=== PATIENT | male | born 1955 | race Caucasian/White ===

== ENCOUNTER → 2020-09-10 09:33 | Outpatient (BNVA) | payer MEDICARE, MEDICAID, SELFPAY | PROVIDERS: PCP Internal Medicine; Visit Provider Internal Medicine | DX: I26.99 Other pulmonary embolism without acute cor pulmonale (principal); I82.409 Acute embolism and thrombosis of unspecified deep veins of unspecified lower extremity; Z51.81 Encounter for therapeutic drug level monitoring; Z79.01 Long term (current) use of anticoagulants | CPT/HCPCS: 85610; 99211 ==

== ENCOUNTER 2020-09-25 12:54 | Emergency (ER) | payer MEDICARE, MEDICAID, SELFPAY ==
[2020-09-25 13:26] VITALS: BP 143/91; PULSE 86; RESP 20; TEMP 37.2; O2SAT 96; BMI 27.8
--- NOTE | 2020-09-25 13:41 | XR_ITS ---
EXAMINATION: XR CHEST CLINICAL INFORMATION: Fever COMPARISON: CT chest 09/14/2018 TECHNIQUE: Frontal view of the chest was obtained. FINDINGS: Lung volumes are slightly diminished. Chronic opacity at the right lung base is similar to priors. No new focal consolidation or mass. No pleural effusion or pneumothorax. Scattered radiopaque foreign bodies are again seen projecting over the left greater than right chest bilaterally. XR/XR chest 1V IMPRESSION: No acute pulmonary disease.
--- NOTE | 2020-09-25 14:10 | ED_ITS ---
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 He has been taking Tylenol with brief improvement in fevers. He also rep orts mild dry cough. No SOB, chest pain, N/V/D, abdominal pain. Admits to dysuria but denies hematuria and frequency. He lives with his son and friend who are both healthy. No known exposure to COVID-19. <TATIANNA Batista - Last Filed: 09/25/20 16:56> MD elicited complaint: fever <TATIANNA Batista - Last Filed: 09/25/20 16:56> Onset (ago): day(s) (2) <TATIANNA Batista - Last Filed: 09/25/20 16:56> Measured temperature: 102 F <TATIANNA Batista - Last Filed: 09/25/20 16:56> Exacerbating factors: nothing <TATIANNA Batista Last Filed: 09/25/20 16:56> Relieving factors: acetaminophen <TATIANNA Batista Last Filed: 09/25/20 16:56> Associated symptoms: chills and cough <TATIANNA Batista Last Filed: 09/25/20 16:56> Treatments prior to arrival fever: none <TATIANNA Batista Last Filed: 09/25/20 16:56> Related Data Home Medications: Home Medications Medication Instructions Recorded Confirmed albuterol sulfate [ProAir HFA] 2 puff INHALATION Q4-6H PRN 09/25/20 09/25/20 atorvastatin 40 mg PO BEDTIME 09/25/20 09/25/20 lisinopril 20 mg PO DAILY 09/25/20 09/25/20 oxycodone 5 mg PO Q8H PRN 09/25/20 09/25/20 sildenafil [Viagra] 100 mg PO DAILY PRN 09/25/20 09/25/20 warfarin 7.5 mg PO MOTUTHFRSA@1600 09/25/20 09/25/20 warfarin 10 mg PO SUWE@1600 09/25/20 09/25/20 Previous Rx's Medication Instructions Recorded warfarin 5 mg tablet 5 mg PO DAILY #90 tab 09/10/20 nitrofurantoin monohyd/m-cryst 100 mg PO BID #10 cap 09/25/20 [Macrobid] <TATIANNA Batista - Last Filed: 09/25/20 16:56> Allergies/Adverse Reactions: Allergies Allergy/AdvReac Type Severity Reaction Status Date / Time No Known Drug Allergies Allergy Mild NONE Verified 09/25/20 13:33 [NO KNOWN DRUG ALLERGIES] <TATIANNA Batista - Last Filed: 09/25/20 16:56> Review of Systems Review of Systems: Constitutional: + Fever, + Chills ENT/Mouth: No sore throat, No Rhinorrhea, No Swallowing Difficulty Eyes: No Eye Pain, No Swelling, No Redness Cardiovascular: No Chest Pain, No SOB, No Orthopnea, No Edema Respiratory: + Cough, No Sputum, No Wheezing, No dyspnea Gastrointestinal: No Nausea, No Vomiting, No Diarrhea, No abdominal Pain Genitourinary: + Dysuria, No Urinary Frequency, No Hematuria Musculoskeletal: No joint pain, No Myalgias Skin: No Skin Lesions, No rash Neuro: No Weakness, No Numbness, No Dizziness, No Headache Psych: No Anxiety/Panic, No Depression Heme/Lymph: No Bruising, No Lymphadenopathy Endocrine: No Polyuria, No Polydipsia <TATIANNA Batista Last Filed: 09/25/20 16:56> [facility] Past Medical History Attestation statement: The following information was validated with the patient. <TATIANNA Batista - Last Filed: 09/25/20 16:56> Medical History: Medical History DVT (deep venous thrombosis) Pulmonary embolism <TATIANNA Batista - Last Filed: 09/25/20 16:56> Social History Social History: Social History Alcohol intake: never Smoking Status: Never smoker Use of substances other than those prescribed or required for medical reasons: No Advance Directives: No Advance Directives Information Provided: Yes <TATIANNA Batista - Last Filed: 09/25/20 16:56> Physical Exam Vital Signs: Vital Signs: Last Vital Signs Temp 99.1 F 09/25/20 15:21 Pulse 70 09/25/20 15:21 Resp 18 09/25/20 15:21 BP 154/94 H 09/25/20 15:21 Pulse Ox 96 09/25/20 15:21 Body Mass Index 27.8 Appearance: Alert. Oriented X3. No acute distress. Eyes: Pupils equal, round and reactive to light. ENT: Pharynx normal. Neck: Normal inspection. Neck supple. CVS: Normal heart rate and rhythm. Pulses normal. Respiratory: No respiratory distress. Breath sounds normal. Abdomen: Soft and nontender. +BS x4, disteneded Skin: Skin warm and dry. Normal skin color. Normal skin turgor. No rashes. Warm to the touch. Extremities: No lower extremity edema. Chronic venous stasis changes to upper ankles. Negative Luaren's sign. Neuro: Oriented X 3. No motor deficit. No sensory deficit. <TATIANNA Batista - Last Filed: 09/25/20 16:56> Vital Signs: Last Vital Signs Temp 99.1 F 09/25/20 15:21 Pulse 70 09/25/20 15:21 Resp 18 09/25/20 15:21 BP 154/94 H 09/25/20 15:21 Pulse Ox 96 09/25/20 15:21 Body Mass Index 27.8 <Vinny Valladares MD - Last Filed: 09/28/20 02:49> Course Course Course Narrative: 64 y/o male presenting with fevers and cough and dysuria. Will panculture and get basic labs. Afebrile and hemodynamically stable on arrival. No resp distress. <TATIANNA Batista - Last Filed: 09/25/20 16:56> I have reviewed the chart <Vinny Valladares MD - Last Filed: 09/28/20 02:49> Reevaluation(s) Reevaluation #1: Lab workup shows a mild transaminitis, improved from prior. No abd pain or tenderness. UA with trace dysuria. Given he has dysuria, will treat for acute cystitis. He remains hemodynamically stable and in no distress. COVID swab sent. Patient is stable for d/c. <TATIANNA Batista - Last Filed: 09/25/20 16:56> MDM - Fever Differential Diagnosis Differential diagnosis: Likely fever of unknown origin, gastroenteritis, community acquired pneumonia, pyelonephritis, viral infection, sepsis and influenza <TATIANNA Batista - Last Filed: 09/25/20 16:56> Lab Data Result diagrams: : 09/25/20 15:10 09/25/20 15:10 <TATIANNA Batista - Last Filed: 09/25/20 16:56> Labs: Lab Results 09/25/20 09/25/20 09/25/20 Range/Units 15:10 15:10 15:10 WBC 4.9 (4.8-10.8) X10*3/uL RBC 4.40 L (4.60-5.80) X10*6/uL Hgb 13.2 L (14.0-18.0) g/dl Hct 39.6 L (42-52) % MCV 90.0 (80-98) fL MCH 30.0 (27.0-33.0) pg MCHC 33.3 (31.0-36.0) g/dl RDW 13.8 (11.0-16.0) % Plt Count 166 (160-400) X10*3/uL MPV 9.4 (9.4-12.4) fL Immature Gran % (Auto) 0.2 (0.0-0.4) % Neut % (Auto) 56.0 (45-73) % Lymph % (Auto) 26.6 (20-40) % [place] % (Auto) 16.4 H (2-11) % Eos % (Auto) 0.4 (0-4) % Baso % (Auto) 0.4 (0-2) % Lymph # (Auto) 1.3 (1.2-4.9) X10*3/uL [place] # (Auto) 0.8 (0.1-1.2) X10*3/uL Eos # (Auto) 0.0 (0.0-0.4) X10*3/uL Baso # (Auto) 0.0 (0.0-0.2) X10*3/uL Abs Immat Gran (auto) 0.01 (0.00-0.03) X10*3/uL Absolute Neuts (auto) 2.7 (2.0-8.3) X10*3/uL Absolute Nucleated RBC 0.000 (0.0-0.012) X10*3/uL Nucleated RBC % (auto) 0.0 (0.0-0.2) /100WBC Sodium 139 (135-145) mmol/L Potassium 4.5 (3.3-5.1) mmol/l Chloride 105 (96-108) mmol/L Carbon Dioxide 28 (22-29) mmol/L Anion Gap 11 L (12-20) BUN 14 (9-16) mg/dL Creatinine 1.17 (0.5-1.4) mg/dL Estim Creat Clear Calc 69.0 Estimated GFR > 60 Random Glucose 88 (60-115) mg/dL Lactic Acid 1.0 (0.5-2.0) mmol/L Calcium 8.4 (8.4-10.2) mg/dL Total Bilirubin 0.4 (0.0-1.0) mg/dL Direct Bilirubin 0.2 (0.0-0.5) mg/dL AST 39 H (5-37) U/L ALT 45 H (0-40) U/L Alkaline Phosphatase 60 (39-117) U/L Total Protein 7.2 (6.5-8.0) g/dL Albumin 4.4 (3.5-5.0) g/dL Urine Color Urine Appearance Urine pH (5.0-8.0) Ur Specific [place] (1.005-1.025) Urine Protein (NEG-TRACE) MG/DL Urine Glucose (UA) (NEG) MG/DL Urine Ketones (NEG) MG/DL Urine Blood (NEG) Urine Nitrite (NEG) Ur Leukocyte Esterase (NEG) Urine RBC (0) /HPF Urine WBC (0-4) /HPF Ur Squamous Epith Cells /LPF Urine Bacteria /LPF COVID-19 PCR (NOT DETECTED) 09/25/20 09/25/20 Range/Units 15:41 16:17 WBC (4.8-10.8) X10*3/uL RBC (4.60-5.80) X10*6/uL Hgb (14.0-18.0) g/dl Hct (42-52) % MCV (80-98) fL MCH (27.0-33.0) pg MCHC (31.0-36.0) g/dl RDW (11.0-16.0) % Plt Count (160-400) X10*3/uL MPV (9.4-12.4) fL Immature Gran % (Auto) (0.0-0.4) % Neut % (Auto) (45-73) % Lymph % (Auto) (20-40) % [place] % (Auto) (2-11) % Eos % (Auto) (0-4) % Baso % (Auto) (0-2) % Lymph # (Auto) (1.2-4.9) X10*3/uL [place] # (Auto) (0.1-1.2) X10*3/uL Eos # (Auto) (0.0-0.4) X10*3/uL Baso # (Auto) (0.0-0.2) X10*3/uL Abs Immat Gran (auto) (0.00-0.03) X10*3/uL Absolute Neuts (auto) (2.0-8.3) X10*3/uL Absolute Nucleated RBC (0.0-0.012) X10*3/uL Nucleated RBC % (auto) (0.0-0.2) /100WBC Sodium (135-145) mmol/L Potassium (3.3-5.1) mmol/l Chloride (96-108) mmol/L Carbon Dioxide (22-29) mmol/L Anion Gap (12-20) BUN (9-16) mg/dL Creatinine (0.5-1.4) mg/dL Estim Creat Clear Calc Estimated GFR Random Glucose (60-115) mg/dL Lactic Acid (0.5-2.0) mmol/L Calcium (8.4-10.2) mg/dL Total Bilirubin (0.0-1.0) mg/dL Direct Bilirubin (0.0-0.5) mg/dL AST (5-37) U/L ALT (0-40) U/L Alkaline Phosphatase (39-117) U/L Total Protein (6.5-8.0) g/dL Albumin (3.5-5.0) g/dL Urine Color YELLOW Urine Appearance CLEAR Urine pH 5.5 (5.0-8.0) Ur Specific [place] 1.015 (1.005-1.025) Urine Protein NEG (NEG-TRACE) MG/DL Urine Glucose (UA) NEG (NEG) MG/DL Urine Ketones NEG (NEG) MG/DL Urine Blood TRACE (NEG) Urine Nitrite NEG (NEG) Ur Leukocyte Esterase NEG (NEG) Urine RBC 0-2 (0) /HPF Urine WBC 0 (0-4) /HPF Ur Squamous Epith Cells TRACE /LPF Urine Bacteria NONE /LPF COVID-19 PCR DETECTED A (NOT DETECTED) <TATIANNA Batista - Last Filed: 09/25/20 16:56> Lab Results 09/25/20 09/25/20 09/25/20 Range/Units 15:10 15:10 15:10 WBC 4.9 (4.8-10.8) X10*3/uL RBC 4.40 L (4.60-5.80) X10*6/uL Hgb 13.2 L (14.0-18.0) g/dl Hct 39.6 L (42-52) % MCV 90.0 (80-98) fL MCH 30.0 (27.0-33.0) pg MCHC 33.3 (31.0-36.0) g/dl RDW 13.8 (11.0-16.0) % Plt Count 166 (160-400) X10*3/uL MPV 9.4 (9.4-12.4) fL Immature Gran % (Auto) 0.2 (0.0-0.4) % Neut % (Auto) 56.0 (45-73) % Lymph % (Auto) 26.6 (20-40) % [place] % (Auto) 16.4 H (2-11) % Eos % (Auto) 0.4 (0-4) % Baso % (Auto) 0.4 (0-2) % Lymph # (Auto) 1.3 (1.2-4.9) X10*3/uL [place] # (Auto) 0.8 (0.1-1.2) X10*3/uL Eos # (Auto) 0.0 (0.0-0.4) X10*3/uL Baso # (Auto) 0.0 (0.0-0.2) X10*3/uL Abs Immat Gran (auto) 0.01 (0.00-0.03) X10*3/uL Absolute Neuts (auto) 2.7 (2.0-8.3) X10*3/uL Absolute Nucleated RBC 0.000 (0.0-0.012) X10*3/uL Nucleated RBC % (auto) 0.0 (0.0-0.2) /100WBC Sodium 139 (135-145) mmol/L Potassium 4.5 (3.3-5.1) mmol/l Chloride 105 (96-108) mmol/L Carbon Dioxide 28 (22-29) mmol/L Anion Gap 11 L (12-20) BUN 14 (9-16) mg/dL Creatinine 1.17 (0.5-1.4) mg/dL Estim Creat Clear Calc 69.0 Estimated GFR > 60 Random Glucose 88 (60-115) mg/dL Lactic Acid 1.0 (0.5-2.0) mmol/L Calcium 8.4 (8.4-10.2) mg/dL Total Bilirubin 0.4 (0.0-1.0) mg/dL Direct Bilirubin 0.2 (0.0-0.5) mg/dL AST 39 H (5-37) U/L ALT 45 H (0-40) U/L Alkaline Phosphatase 60 (39-117) U/L Total Protein 7.2 (6.5-8.0) g/dL Albumin 4.4 (3.5-5.0) g/dL Urine Color Urine Appearance Urine pH (5.0-8.0) Ur Specific [place] (1.005-1.025) Urine Protein (NEG-TRACE) MG/DL Urine Glucose (UA) (NEG) MG/DL Urine Ketones (NEG) MG/DL Urine Blood (NEG) Urine Nitrite (NEG) Ur Leukocyte Esterase (NEG) Urine RBC (0) /HPF Urine WBC (0-4) /HPF Ur Squamous Epith Cells /LPF Urine Bacteria /LPF COVID-19 PCR (NOT DETECTED) 09/25/20 09/25/20 Range/Units 15:41 16:17 WBC (4.8-10.8) X10*3/uL RBC (4.60-5.80) X10*6/uL Hgb (14.0-18.0) g/dl Hct (42-52) % MCV (80-98) fL MCH (27.0-33.0) pg MCHC (31.0-36.0) g/dl RDW (11.0-16.0) % Plt Count (160-400) X10*3/uL MPV (9.4-12.4) fL Immature Gran % (Auto) (0.0-0.4) % Neut % (Auto) (45-73) % Lymph % (Auto) (20-40) % [place] % (Auto) (2-11) % Eos % (Auto) (0-4) % Baso % (Auto) (0-2) % Lymph # (Auto) (1.2-4.9) X10*3/uL [place] # (Auto) (0.1-1.2) X10*3/uL Eos # (Auto) (0.0-0.4) X10*3/uL Baso # (Auto) (0.0-0.2) X10*3/uL Abs Immat Gran (auto) (0.00-0.03) X10*3/uL Absolute Neuts (auto) (2.0-8.3) X10*3/uL Absolute Nucleated RBC (0.0-0.012) X10*3/uL Nucleated RBC % (auto) (0.0-0.2) /100WBC Sodium (135-145) mmol/L Potassium (3.3-5.1) mmol/l Chloride (96-108) mmol/L Carbon Dioxide (22-29) mmol/L Anion Gap (12-20) BUN (9-16) mg/dL Creatinine (0.5-1.4) mg/dL Estim Creat Clear Calc Estimated GFR Random Glucose (60-115) mg/dL Lactic Acid (0.5-2.0) mmol/L Calcium (8.4-10.2) mg/dL Total Bilirubin (0.0-1.0) mg/dL Direct Bilirubin (0.0-0.5) mg/dL AST (5-37) U/L ALT (0-40) U/L Alkaline Phosphatase (39-117) U/L Total Protein (6.5-8.0) g/dL Albumin (3.5-5.0) g/dL Urine Color YELLOW Urine Appearance CLEAR Urine pH 5.5 (5.0-8.0) Ur Specific [place] 1.015 (1.005-1.025) Urine Protein NEG (NEG-TRACE) MG/DL Urine Glucose (UA) NEG (NEG) MG/DL Urine Ketones NEG (NEG) MG/DL Urine Blood TRACE (NEG) Urine Nitrite NEG (NEG) Ur Leukocyte Esterase NEG (NEG) Urine RBC 0-2 (0) /HPF Urine WBC 0 (0-4) /HPF Ur Squamous Epith Cells TRACE /LPF Urine Bacteria NONE /LPF COVID-19 PCR DETECTED A (NOT DETECTED) <Vinny Valladares MD - Last Filed: 09/28/20 02:49> Critical Care Time Critical Care Time Critical Care Time: No <TATIANNA Batista - Last Filed: 09/25/20 16:56> Discharge Plan Discharge Clinical Impression: Cystitis <TATIANNA aBtista - Last Filed: 09/25/20 16:56> Patient Disposition: Home, Self-Care <TATIANNA Batista - Last Filed: 09/25/20 16:56> Instructions: Urinary Tract Infection in Men (ED) <TATIANNA Batista - Last Filed: 09/25/20 16:56> Additional Instructions: You were tested for COVID-19 today. We will call you with the results in 2-4 days. Your lab workup showed a mild elevation in your liver tests - this was improved from your prior tests and should be followed up by your doctor. Your urine test had a small amount of blood in it, which can be a sign of infection. We are going to start you on antibiotics to treat this. If you have persistent fevers that do not improve with Tylenol or if you develop chest pain, difficulty breathing, or abdominal pain call your doctor or come back to the ER for further evaluation. Follow up with your doctor this week. <TATIANNA Batista - Last Filed: 09/25/20 16:56> Prescriptions: New nitrofurantoin monohyd/m-cryst [Macrobid] 100 mg capsule 100 mg PO BID Qty: 10 RF: 0 No Action atorvastatin 40 mg Tablet 40 mg PO BEDTIME RF: 0 warfarin 7.5 mg Tablet 7.5 mg PO MOTUTHFRSA@1600 RF: 0 lisinopril 20 mg Tablet 20 mg PO DAILY RF: 0 sildenafil [Viagra] 100 mg Tablet 100 mg PO DAILY PRN (Reason: Sexual Activity) RF: 0 warfarin 5 mg Tablet 10 mg PO SUWE@1600 RF: 0 albuterol sulfate [ProAir HFA] 90 mcg/actuation Hfa Aerosol Inhaler 2 puff INHALATION Q4-6H PRN (Reason: Shortness Of Breath) RF: 0 oxycodone 5 mg Tablet 5 mg PO Q8H PRN (Reason: Pain) RF: 0 warfarin 5 mg tablet 5 mg PO DAILY Qty: 90 RF: 0 <TATIANNA Batista - Last Filed: 09/25/20 16:56> Interventions: ED Discharge Assessment Last Done: 09/25/20 17:18 <TATIANNA Batista - Last Filed: 09/25/20 16:56> Discharge Date/Time: 09/25/20 17:19 <TATIANNA Batista - Last Filed: 09/25/20 16:56> Print Language: [place] <TATIANNA Batista - Last Filed: 09/25/20 16:56>
[2020-09-25 14:14] VITALS: TEMP 38.8
[2020-09-25 15:16] LABS: Basophils Percent Auto 0.4 % (0-2); Eosinophils Percent Auto 0.4 % (0-4); Hematocrit 39.6 % (42-52); Hemoglobin 13.2 g/dl (14.0-18.0); Imm Gran Abs Auto 0.01 X10*3/uL (0.00-0.03); Imm Gran Pct Auto 0.2 % (0.0-0.4); Lymphocytes Absolute Auto 1.3 X10*3/uL (1.2-4.9); Lymphocytes Percent Auto 26.6 % (20-40); MANUAL DIFF FLAG NO; Mean Corpuscular HGB Conc 33.3 g/dl (31.0-36.0); Mean Platelet Volume 9.4 fL (9.4-12.4); Monocytes Absolute Auto 0.8 X10*3/uL (0.1-1.2); Monocytes Percent Auto 16.4 % (2-11); Neutrophils Absolute Auto 2.7 X10*3/uL (2.0-8.3); Platelet Count 166 X10*3/uL (160-400); Red Cell Distribution Width 13.8 % (11.0-16.0); White Blood Count 4.9 X10*3/uL (4.8-10.8)
[2020-09-25 15:21] VITALS: BP 154/94; PULSE 70; RESP 18; TEMP 37.3; O2SAT 96
[2020-09-25 15:49] LABS: Alanine Aminotransferase 45 U/L (0-40); Albumin Level 4.4 g/dL (3.5-5.0); Alkaline Phosphatase 60 U/L (39-117); Anion Gap 11 (12-20); Aspartate Amino Transferase 39 U/L (5-37); Bilirubin Direct 0.2 mg/dL (0.0-0.5); Bilirubin Total 0.4 mg/dL (0.0-1.0); Blood Urea Nitrogen 14 mg/dL (9-16); Calcium 8.4 mg/dL (8.4-10.2); Carbon Dioxide 28 mmol/L (22-29); Chloride 105 mmol/L (96-108); Estimated Glomerular Filt Rate > 60; Glucose Random 88 mg/dL (60-115); Potassium 4.5 mmol/l (3.3-5.1); Sodium 139 mmol/L (135-145); Total Protein 7.2 g/dL (6.5-8.0)
[2020-09-25 16:31] LABS: Glucose Urine UA NEG (NEG); Leukocyte Esterase Urine NEG (NEG); Nitrite Urine NEG (NEG); PH 5.5 (5.0-8.0); Specific Gravity - Urine 1.015 (1.005-1.025); Urine Blood TRACE (NEG); Urine Ketones NEG (NEG); Urine Protein NEG (NEG-TRACE)
[2020-09-25 16:32] LABS: Appearance Urine CLEAR; Color Urine YELLOW
[2020-09-25 16:41] LABS: RBC Urine 0-2 /HPF (0); Squamous Epithelial Cell Urine TRACE /LPF; WBC Urine 0 /HPF (0-4)
== END 2020-09-25 17:19 | disposition home or self-care (01) ==
PROVIDERS: Physician Assistant; Emergency Provider Emergency Medicine; PCP Internal Medicine
DX: N30.90 Cystitis, unspecified without hematuria (principal); R50.9 Fever, unspecified; Z20.828 Contact with and (suspected) exposure to other viral communicable diseases
CPT/HCPCS: 36415; 71045; 80048; 80076; 81001; 83605; 85025; 87040; 99283; 99284; U0003

== ENCOUNTER 2020-10-03 13:13 | Emergency (ER) | payer MEDICARE, MEDICAID, SELFPAY ==
[2020-10-03 13:59] VITALS: BP 124/87; PULSE 104; RESP 18; TEMP 36.6; O2SAT 95; BMI 26.8
--- NOTE | 2020-10-03 15:01 | ED_ITS ---
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 and tool coordinator Mode of arrival: ambulatory Limitations: no limitations History of Present Illness MD complaint: shortness of breath Onset (ago): day(s) (2) Severity: moderate Context: recent URI (dx with COVID on 09/25 went to PCP and they told him his O2 was 91% on RA sent to the ED) Associated symptoms: dry cough Related Data Current Asthma Therapy: inhaled bronchodilator Home Medications Medication Instructions Recorded Confirmed albuterol sulfate [ProAir HFA] 2 puff INHALATION Q4-6H PRN 09/25/20 09/25/20 atorvastatin 40 mg PO BEDTIME 09/25/20 09/25/20 lisinopril 20 mg PO DAILY 09/25/20 09/25/20 oxycodone 5 mg PO Q8H PRN 09/25/20 09/25/20 sildenafil [Viagra] 100 mg PO DAILY PRN 09/25/20 09/25/20 warfarin 7.5 mg PO MOTUTHFRSA@1600 09/25/20 09/25/20 warfarin 10 mg PO SUWE@1600 09/25/20 09/25/20 Previous Rx's Medication Instructions Recorded warfarin 5 mg tablet 5 mg PO DAILY #90 tab 09/10/20 nitrofurantoin monohyd/m-cryst 100 mg PO BID #10 cap 09/25/20 [Macrobid] azithromycin See Rx Instructions .ROUTE 10/03/20 .COMPLEX #6 tab dexamethasone 6 mg PO DAILY 10 Days #10 tab 10/03/20 Allergies Allergy/AdvReac Type Severity Reaction Status Date / Time No Known Drug Allergies Allergy Mild NONE Verified 09/25/20 13:33 [NO KNOWN DRUG ALLERGIES] Review of Systems Review of Systems: Constitutional : No Fever, No Chills ENT/Mouth : No sore throat, No Rhinorrhea, No Swallowing Difficulty Eyes: No Eye Pain, No Swelling, No Redness Cardiovascular : No Chest Pain, positive SOB, No Orthopnea, no Edema Respiratory : pos Cough, No Sputum, No Wheezing, positive dyspnea Gastrointestinal : No Nausea, No Vomiting, No Diarrhea, No abdominal Pain, No Hematochezia, No Melena Genitourinary : No Dysuria, No Urinary Frequency, No Hematuria Musculoskeletal : No joint pain, No Myalgias Skin : No Skin Lesions, No rash Neuro : No Weakness, No Numbness, No Dizziness, No Headache Psych : No Anxiety/Panic, No Depression Heme/Lymph: No Bruising, No Lymphadenopathy Endocrine : No Polyuria, No Polydipsia All other systems reviewed and are negative [facility] Past Medical History Attestation statement: The following information was validated with the patient. Medical History (Updated 10/03/20 @ 16:12 by Ivette Schneider DO) Asthma COVID-19 DVT (deep venous thrombosis) Pulmonary embolism Social History Social History Alcohol intake: never Smoking Status: Never smoker Use of substances other than those prescribed or required for medical reasons: No Advance Directives: No Advance Directives Information Provided: No Physical Exam Vital Signs: Vital Signs: Last Vital Signs Temp 98.1 F 10/03/20 15:38 Pulse 86 10/03/20 15:50 Resp 15 10/03/20 15:50 BP 128/91 H 10/03/20 15:50 Pulse Ox 96 10/03/20 15:50 Body Mass Index 26.8 Appearance: Alert. Oriented X3. No acute distress. Eyes: Pupils equal, round and reactive to light. ENT: Pharynx normal. Neck: Normal inspection. Neck supple. CVS: Normal heart rate and rhythm. Pulses normal. Respiratory: No respiratory distress. Breath sounds rales bases Abdomen: Soft and nontender. Skin: Skin warm and dry. Normal skin color. Normal skin turgor. Extremities: No lower extremity edema. No calf ttp Neuro: Oriented X 3. No motor deficit. No sensory deficit. Course Course Course Narrative: ambulation trial in the ED 96% anticipate DC signed out to Dr. Leach pending repeat troponin, anticipate DC home if negative MDM - Asthma MDM Narrative Medical decision making narrative: 64 yo male with hx of asthma and dx with COVID on 09/25 here with dyspnea and increased wob - sats 94% on RA at this time, will obtain labs, EKG, CXR, ambulation in room trial for hypoxia, dispo per results and findings. Lab Data Result diagrams: 10/03/20 15:34 10/03/20 15:34 Labs: Lab Results 10/03/20 10/03/20 10/03/20 Range/Units 15:34 15:34 15:34 WBC 5.8 (4.8-10.8) X10*3/uL RBC 5.05 (4.60-5.80) X10*6/uL Hgb 15.2 (14.0-18.0) g/dl Hct 45.7 (42-52) % MCV 90.5 (80-98) fL MCH 30.1 (27.0-33.0) pg MCHC 33.3 (31.0-36.0) g/dl RDW 13.4 (11.0-16.0) % Plt Count 250 D (160-400) X10*3/uL MPV 10.0 (9.4-12.4) fL Immature Gran % (Auto) 0.3 (0.0-0.4) % Neut % (Auto) 63.1 (45-73) % Lymph % (Auto) 26.5 (20-40) % Peach % (Auto) 8.3 (2-11) % Eos % (Auto) 1.6 (0-4) % Baso % (Auto) 0.2 (0-2) % Lymph # (Auto) 1.5 (1.2-4.9) X10*3/uL Peach # (Auto) 0.5 (0.1-1.2) X10*3/uL Eos # (Auto) 0.1 (0.0-0.4) X10*3/uL Baso # (Auto) 0.0 (0.0-0.2) X10*3/uL Abs Immat Gran (auto) 0.02 (0.00-0.03) X10*3/uL Absolute Neuts (auto) 3.7 (2.0-8.3) X10*3/uL Absolute Nucleated RBC 0.000 (0.0-0.012) X10*3/uL Nucleated RBC % (auto) 0.0 (0.0-0.2) /100WBC PT (10.8-13.0) SEC INR (0.9-1.1) APTT (24.1-38.0) SEC Sodium 137 (135-145) mmol/L Potassium 3.7 (3.3-5.1) mmol/l Chloride 100 (96-108) mmol/L Carbon Dioxide 28 (22-29) mmol/L Anion Gap 13 (12-20) BUN 17 H (9-16) mg/dL Creatinine 0.97 (0.5-1.4) mg/dL Estim Creat Clear Calc 83.3 Estimated GFR > 60 Random Glucose 103 (60-115) mg/dL Lactic Acid 1.9 (0.5-2.0) mmol/L Calcium 8.3 L (8.4-10.2) mg/dL Magnesium (1.6-2.6) mg/dL Total Bilirubin (0.0-1.0) mg/dL Direct Bilirubin (0.0-0.5) mg/dL AST (5-37) U/L ALT (0-40) U/L Alkaline Phosphatase (39-117) U/L Lactate Dehydrogenase 409 H (118-273) U/L Troponin I High Sens (<3.5-35.0) ng/L B-Natriuretic Peptide (<100) pg/mL Total Protein (6.5-8.0) g/dL Albumin (3.5-5.0) g/dL Lipase 38 (8-78) U/L Procalcitonin ng/mL 10/03/20 10/03/20 10/03/20 Range/Units 15:34 15:34 15:34 WBC (4.8-10.8) X10*3/uL RBC (4.60-5.80) X10*6/uL Hgb (14.0-18.0) g/dl Hct (42-52) % MCV (80-98) fL MCH (27.0-33.0) pg MCHC (31.0-36.0) g/dl RDW (11.0-16.0) % Plt Count (160-400) X10*3/uL MPV (9.4-12.4) fL Immature Gran % (Auto) (0.0-0.4) % Neut % (Auto) (45-73) % Lymph % (Auto) (20-40) % Peach % (Auto) (2-11) % Eos % (Auto) (0-4) % Baso % (Auto) (0-2) % Lymph # (Auto) (1.2-4.9) X10*3/uL Peach # (Auto) (0.1-1.2) X10*3/uL Eos # (Auto) (0.0-0.4) X10*3/uL Baso # (Auto) (0.0-0.2) X10*3/uL Abs Immat Gran (auto) (0.00-0.03) X10*3/uL Absolute Neuts (auto) (2.0-8.3) X10*3/uL Absolute Nucleated RBC (0.0-0.012) X10*3/uL Nucleated RBC % (auto) (0.0-0.2) /100WBC PT (10.8-13.0) SEC INR (0.9-1.1) APTT (24.1-38.0) SEC Sodium (135-145) mmol/L Potassium (3.3-5.1) mmol/l Chloride (96-108) mmol/L Carbon Dioxide (22-29) mmol/L Anion Gap (12-20) BUN (9-16) mg/dL Creatinine (0.5-1.4) mg/dL Estim Creat Clear Calc Estimated GFR Random Glucose (60-115) mg/dL Lactic Acid (0.5-2.0) mmol/L Calcium (8.4-10.2) mg/dL Magnesium 2.3 (1.6-2.6) mg/dL Total Bilirubin 0.7 (0.0-1.0) mg/dL Direct Bilirubin 0.3 (0.0-0.5) mg/dL AST 59 H (5-37) U/L ALT 65 H (0-40) U/L Alkaline Phosphatase 68 (39-117) U/L Lactate Dehydrogenase (118-273) U/L Troponin I High Sens 6.6 (<3.5-35.0) ng/L B-Natriuretic Peptide < 10 (<100) pg/mL Total Protein 7.6 (6.5-8.0) g/dL Albumin 4.3 (3.5-5.0) g/dL Lipase (8-78) U/L Procalcitonin 0.03 ng/mL 10/03/20 Range/Units 15:34 WBC (4.8-10.8) X10*3/uL RBC (4.60-5.80) X10*6/uL Hgb (14.0-18.0) g/dl Hct (42-52) % MCV (80-98) fL MCH (27.0-33.0) pg MCHC (31.0-36.0) g/dl RDW (11.0-16.0) % Plt Count (160-400) X10*3/uL MPV (9.4-12.4) fL Immature Gran % (Auto) (0.0-0.4) % Neut % (Auto) (45-73) % Lymph % (Auto) (20-40) % Peach % (Auto) (2-11) % Eos % (Auto) (0-4) % Baso % (Auto) (0-2) % Lymph # (Auto) (1.2-4.9) X10*3/uL Peach # (Auto) (0.1-1.2) X10*3/uL Eos # (Auto) (0.0-0.4) X10*3/uL Baso # (Auto) (0.0-0.2) X10*3/uL Abs Immat Gran (auto) (0.00-0.03) X10*3/uL Absolute Neuts (auto) (2.0-8.3) X10*3/uL Absolute Nucleated RBC (0.0-0.012) X10*3/uL Nucleated RBC % (auto) (0.0-0.2) /100WBC PT 30.6 H (10.8-13.0) SEC INR 2.6 H (0.9-1.1) APTT 41.0 H (24.1-38.0) SEC Sodium (135-145) mmol/L Potassium (3.3-5.1) mmol/l Chloride (96-108) mmol/L Carbon Dioxide (22-29) mmol/L Anion Gap (12-20) BUN (9-16) mg/dL Creatinine (0.5-1.4) mg/dL Estim Creat Clear Calc Estimated GFR Random Glucose (60-115) mg/dL Lactic Acid (0.5-2.0) mmol/L Calcium (8.4-10.2) mg/dL Magnesium (1.6-2.6) mg/dL Total Bilirubin (0.0-1.0) mg/dL Direct Bilirubin (0.0-0.5) mg/dL AST (5-37) U/L ALT (0-40) U/L Alkaline Phosphatase (39-117) U/L Lactate Dehydrogenase (118-273) U/L Troponin I High Sens (<3.5-35.0) ng/L B-Natriuretic Peptide (<100) pg/mL Total Protein (6.5-8.0) g/dL Albumin (3.5-5.0) g/dL Lipase (8-78) U/L Procalcitonin ng/mL ECG Data Attestation: I personally reviewed and interpreted this ECG as follows: ECG interpretation date: 10/03/20 ECG interpretation time: 15:52 Interpretation: Rate: 86 Rhythm: NSR [place]: left , LVH Normal P waves. Normal MARIO. Normal QRS complex. ST T wave : normal qTC: normal prior studies: no acute ischemia The study has been interpreted contemporaneously by me. . Discharge Plan Discharge Clinical Impression: Pneumonia due to COVID-19 virus Instructions: COVID-19 (Coronavirus Disease 2019) (ED) Additional Instructions: return to ED for any worsening symptoms or concerns Prescriptions: New azithromycin 500 mg tablet See Rx Instructions .ROUTE .COMPLEX Qty: 6 RF: 0 dexamethasone 6 mg tablet 6 mg PO DAILY 10 Days Qty: 10 RF: 0 No Action atorvastatin 40 mg Tablet 40 mg PO BEDTIME RF: 0 warfarin 7.5 mg Tablet 7.5 mg PO MOTUTHFRSA@1600 RF: 0 lisinopril 20 mg Tablet 20 mg PO DAILY RF: 0 sildenafil [Viagra] 100 mg Tablet 100 mg PO DAILY PRN (Reason: Sexual Activity) RF: 0 warfarin 5 mg Tablet 10 mg PO SUWE@1600 RF: 0 albuterol sulfate [ProAir HFA] 90 mcg/actuation Hfa Aerosol Inhaler 2 puff INHALATION Q4-6H PRN (Reason: Shortness Of Breath) RF: 0 oxycodone 5 mg Tablet 5 mg PO Q8H PRN (Reason: Pain) RF: 0 nitrofurantoin monohyd/m-cryst [Macrobid] 100 mg capsule 100 mg PO BID Qty: 10 RF: 0 warfarin 5 mg tablet 5 mg PO DAILY Qty: 90 RF: 0 Referrals: Sancho Bean MD [Primary Care Provider] - 2 days (if not better)
--- NOTE | 2020-10-03 15:09 | ECG_ITS ---
Test Reason : ASTHMA Blood Pressure : / mmHG Vent. Rate : 086 BPM Atrial Rate : 086 BPM P-R Int : 152 ms QRS Dur : 098 ms QT Int : 386 ms P-R-T Axes : 057 -14 024 degrees QTc Int : 461 ms Normal sinus rhythm Left axis deviation Moderate voltage criteria for LVH, may be normal variant Borderline ECG When compared with ECG of 18-OCT-2016 00:57, Heart rate has increased Referred By: Ivette Schneider Electronically Signed By:RADHA LAI MD
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
[2020-10-03 15:38] VITALS: BP 128/91; PULSE 86; RESP 20; TEMP 36.7; O2SAT 93
[2020-10-03 15:40] LABS: MANUAL DIFF FLAG NO
[2020-10-03 15:46] LABS: Basophils Percent Auto 0.2 % (0-2); Eosinophils Absolute Auto 0.1 X10*3/uL (0.0-0.4); Eosinophils Percent Auto 1.6 % (0-4); Hematocrit 45.7 % (42-52); Hemoglobin 15.2 g/dl (14.0-18.0); Imm Gran Abs Auto 0.02 X10*3/uL (0.00-0.03); Imm Gran Pct Auto 0.3 % (0.0-0.4); Lymphocytes Absolute Auto 1.5 X10*3/uL (1.2-4.9); Lymphocytes Percent Auto 26.5 % (20-40); Mean Corpuscular HGB Conc 33.3 g/dl (31.0-36.0); Mean Corpuscular Hemoglobin 30.1 pg (27.0-33.0); Mean Corpuscular Volume 90.5 fL (80-98); Monocytes Absolute Auto 0.5 X10*3/uL (0.1-1.2); Monocytes Percent Auto 8.3 % (2-11); Neutrophils Absolute Auto 3.7 X10*3/uL (2.0-8.3); Neutrophils Percent Auto 63.1 % (45-73); Platelet Count 250 X10*3/uL (160-400); Red Blood Count 5.05 X10*6/uL (4.60-5.80); Red Cell Distribution Width 13.4 % (11.0-16.0); White Blood Count 5.8 X10*3/uL (4.8-10.8)
[2020-10-03] MEDS: Acetaminophen 325 MG TABLET 650 MG PO (15:47)
[2020-10-03 15:50] VITALS: BP 128/91; PULSE 86; RESP 15; O2SAT 96
[2020-10-03 15:54] LABS: INTERNATIONAL NORM RATIO 2.6 (0.9-1.1); Prothrombin Time 30.6 SEC (10.8-13.0)
--- NOTE | 2020-10-03 16:08 | PC.NURSE ---
Patient walked within room and 02 sat stable at 96 to 97 % room air. Patient was slightly tachycardiac while ambulating but never became short of breath. MD aware of ambulation results
[2020-10-03 16:09] LABS: Lactic Acid 1.9 mmol/L (0.5-2.0)
[2020-10-03 16:12] LABS: Alanine Aminotransferase 65 U/L (0-40); Albumin Level 4.3 g/dL (3.5-5.0); Alkaline Phosphatase 68 U/L (39-117); Aspartate Amino Transferase 59 U/L (5-37); Bilirubin Direct 0.3 mg/dL (0.0-0.5); Bilirubin Total 0.7 mg/dL (0.0-1.0); Magnesium 2.3 mg/dL (1.6-2.6); Total Protein 7.6 g/dL (6.5-8.0)
[2020-10-03 16:13] LABS: Anion Gap 13 (12-20); Blood Urea Nitrogen 17 mg/dL (9-16); Calcium 8.3 mg/dL (8.4-10.2); Carbon Dioxide 28 mmol/L (22-29); Chloride 100 mmol/L (96-108); Creatinine Clr Calc Pharmacy 83.3; Estimated Glomerular Filt Rate > 60; Glucose Random 103 mg/dL (60-115); Lactate Dehydrogenase 409 U/L (118-273); Lipase 38 U/L (8-78); Potassium 3.7 mmol/l (3.3-5.1); Sodium 137 mmol/L (135-145)
[2020-10-03 16:17] LABS: B Type Natriuretic Peptide < 10 pg/mL (<100); Troponin-I High Sensitivity 6.6 ng/L (<3.5-35.0)
[2020-10-03 16:32] LABS: Procalcitonin 0.03 ng/mL
[2020-10-03 16:45] VITALS: BP 126/85; PULSE 77; RESP 16; TEMP 36.8; O2SAT 99
[2020-10-03 17:30] LABS: Ferritin 3405 ng/mL (20-250)
[2020-10-03 18:00] VITALS: BP 129/77; PULSE 72; RESP 15; O2SAT 94
[2020-10-03 18:11] LABS: Troponin-I High Sensitivity 7.3 ng/L (<3.5-35.0)
[2020-10-03 20:00] VITALS: BP 127/73; RESP 15; O2SAT 96
[2020-10-03] MEDS: Azithromycin 500 MG TABLET PO (20:02)
== END 2020-10-03 20:27 | disposition home or self-care (01) ==
PROVIDERS: Emergency Provider Emergency Medicine; PCP Internal Medicine
DX: U07.1 COVID-19 (principal); J12.89 Other viral pneumonia; R06.02 Shortness of breath; Z79.899 Other long term (current) drug therapy; Z20.828 Contact with and (suspected) exposure to other viral communicable diseases
CPT/HCPCS: 36415; 71045; 80048; 80076; 82728; 83605; 83615; 83690; 83735; 83880; 84145; 84484; 85025; 85610; 85730; 87040; 93005; 99283; 99284

== ENCOUNTER 2020-10-04 20:44 | Emergency (ER) | payer MEDICARE, MEDICAID, SELFPAY ==
[2020-10-04 22:35] VITALS: BP 119/76; PULSE 73; RESP 16; TEMP 36.9; O2SAT 95; BMI 27.1
--- NOTE | 2020-10-04 23:15 | ED_ITS ---
HPI - SOB/Dyspnea General Chief Complaint: Dyspnea Stated Complaint: SOB Time Seen by Provider: 10/04/20 21:52 History of Present Illness HPI Narrative: patient is a 64-year-old male with a history of coughing congestion upper respiratory symptoms. Presented today with feeling generalized malaise. Patient has been tested positive for coronavirus. Low-grade fever at home. Sick for about a week. Tolerate p.o.. No diaphoresis. Related Data Home Medications Medication Instructions Recorded Confirmed albuterol sulfate [ProAir HFA] 2 puff INHALATION Q4-6H PRN 09/25/20 09/25/20 atorvastatin 40 mg PO BEDTIME 09/25/20 09/25/20 lisinopril 20 mg PO DAILY 09/25/20 09/25/20 oxycodone 5 mg PO Q8H PRN 09/25/20 09/25/20 sildenafil [Viagra] 100 mg PO DAILY PRN 09/25/20 09/25/20 warfarin 7.5 mg PO MOTUTHFRSA@1600 09/25/20 09/25/20 warfarin 10 mg PO SUWE@1600 09/25/20 09/25/20 Previous Rx's Medication Instructions Recorded warfarin 5 mg tablet 5 mg PO DAILY #90 tab 09/10/20 nitrofurantoin monohyd/m-cryst 100 mg PO BID #10 cap 09/25/20 [Macrobid] azithromycin See Rx Instructions .ROUTE 10/03/20 .COMPLEX #6 tab dexamethasone 6 mg PO DAILY 10 Days #10 tab 10/03/20 Allergies Allergy/AdvReac Type Severity Reaction Status Date / Time No Known Drug Allergies Allergy Mild NONE Verified 09/25/20 13:33 [NO KNOWN DRUG ALLERGIES] Review of Systems Review of Systems: Constitutional: No Weight loss, positiveFever, No Chills, No Night Sweats, No Fatigue, No Malaise ENT/Mouth: No Hearing loss, No Ear Pain, No Nasal Congestion, No Sinus Pain, No Hoarseness, No sore throat, No Rhinorrhea, No Swallowing Difficulty Eyes: No Eye Pain, No Swelling, No Redness, No Foreign Body, No Discharge, No Vision Changes Cardiovascular: No Chest Pain, No SOB, No Dyspnea on Exertion, No Orthopnea, No Edema, No Palpitations Respiratory: positive Cough, No Sputum, No Wheezing, No Smoke Exposure, No Dyspnea Gastrointestinal: No Nausea, No Vomiting, No Diarrhea, No Constipation, No abdominal Pain, No Hematochezia, No Melena Genitourinary: no irregular bleeding, No Dysuria, No Urinary Frequency, No Hematuria, No Urinary Incontinence, No Urgency, No Flank Pain, No Urinary Flow Changes, No Hesitancy Musculoskeletal: No joint pain, No Myalgias, No Joint Swelling Skin: No Skin Lesions, No rash Neuro: No Weakness, No Numbness, No Paresthesias, No Loss of Consciousness, No Dizziness, No Headache Psych: No Anxiety/Panic, No Depression, No SI/HI/AH/VH, No Social Issues, Heme/Lymph: No Bruising, No Bleeding,No Lymphadenopathy Endocrine: No Polyuria, No Polydipsia, No Temperature Intolerance [facility] Past Medical History Medical History (Updated 10/04/20 @ 23:23 by Itzel Bolivar MD) Asthma COVID-19 DVT (deep venous thrombosis) Pulmonary embolism Social History Social History Alcohol intake: never Smoking Status: Never smoker Advance Directives: No Physical Exam Vital Signs: Vital Signs: Last Vital Signs Temp 98.4 F 10/04/20 22:35 Pulse 73 10/04/20 22:35 Resp 16 10/04/20 22:35 BP 119/76 10/04/20 22:35 Pulse Ox 95 10/04/20 22:35 Body Mass Index 27.1 Appearance: Alert. Oriented X3. No acute distress. Eyes: Pupils equal, round and reactive to light. ENT: Pharynx normal. Neck: Normal inspection. Neck supple. No lymph nodes noted. No crepitus CVS: Normal heart rate and rhythm. Pulses normal. Normal S1 and S2 Respiratory: No respiratory distress. Breath sounds normal. No Wheezing. No rales Abdomen: Soft and nontender. No rigidity. No distention. good BS x4 Skin: Skin warm and dry. Normal skin color. Normal skin turgor. Extremities: No lower extremity edema. Neurovascular intact to all extremities. No Lacerations. No Rash Neuro: Oriented X 3. No motor deficit. No sensory deficit. Moving all extermities. No slurred speech MDM - SOB/Dyspnea MDM Narrative Medical decision making narrative: patient well-appearing O2 sat 95% on room air. Heart rate is in the 70s. No distress. Given reassurance will have patient follow-up on an outpatient basis. Currently in stable condition. Discharge Plan Discharge Clinical Impression: Pneumonia due to COVID-19 virus Patient Disposition: Home, Self-Care Additional Instructions: Please follow strict home quarantine in till all symptom has resolved for at least 2 days. Prescriptions: No Action atorvastatin 40 mg Tablet 40 mg PO BEDTIME RF: 0 warfarin 7.5 mg Tablet 7.5 mg PO MOTUTHFRSA@1600 RF: 0 lisinopril 20 mg Tablet 20 mg PO DAILY RF: 0 sildenafil [Viagra] 100 mg Tablet 100 mg PO DAILY PRN (Reason: Sexual Activity) RF: 0 warfarin 5 mg Tablet 10 mg PO SUWE@1600 RF: 0 albuterol sulfate [ProAir HFA] 90 mcg/actuation Hfa Aerosol Inhaler 2 puff INHALATION Q4-6H PRN (Reason: Shortness Of Breath) RF: 0 oxycodone 5 mg Tablet 5 mg PO Q8H PRN (Reason: Pain) RF: 0 nitrofurantoin monohyd/m-cryst [Macrobid] 100 mg capsule 100 mg PO BID Qty: 10 RF: 0 azithromycin 500 mg tablet See Rx Instructions .ROUTE .COMPLEX Qty: 6 RF: 0 dexamethasone 6 mg tablet 6 mg PO DAILY 10 Days Qty: 10 RF: 0 warfarin 5 mg tablet 5 mg PO DAILY Qty: 90 RF: 0 Referrals: Physician,Unknown [Primary Care Provider] - 2 days
[2020-10-04 23:28] VITALS: BP 111/71; PULSE 74; RESP 16; TEMP 36.9; O2SAT 94
--- NOTE | 2020-10-04 23:33 | PC.NURSE ---
pt has a nonproductive cough sat 94-95% on room air. talking in full sentences. feels ready for discharge.
== END 2020-10-04 23:34 | disposition home or self-care (01) ==
PROVIDERS: Emergency Provider Emergency Medicine Emergency Medical Services
DX: U07.1 COVID-19 (principal); J12.89 Other viral pneumonia; R06.02 Shortness of breath; Z79.899 Other long term (current) drug therapy
CPT/HCPCS: 99283; 99284

== ENCOUNTER 2020-10-05 | Outpatient (REF) | payer MEDICARE, MEDICAID, SELFPAY ==
[2020-10-05 11:14] LABS: INTERNATIONAL NORM RATIO 2.2 (0.9-1.1); Prothrombin Time 26.6 SEC (10.8-13.0)
== END 2020-10-05 00:01 | disposition home or self-care (01) ==
LOC: HO.LHD
PROVIDERS: Visit Provider Internal Medicine
DX: Z86.711 Personal history of pulmonary embolism (principal); Z79.01 Long term (current) use of anticoagulants
CPT/HCPCS: 36415; 85610; Q3014

== ENCOUNTER 2020-10-10 05:28 | Outpatient (REF) | payer MEDICARE, MEDICAID, SELFPAY ==
[2020-10-10 11:15] LABS: Prothrombin Time 83.7 SEC (10.8-13.0)
[2020-10-10 11:30] LABS: INTERNATIONAL NORM RATIO 6.9 (0.9-1.1)
== END 2020-10-10 05:29 | disposition home or self-care (01) ==
LOC: HO.LHD 05:28
PROVIDERS: Visit Provider Internal Medicine
DX: Z86.711 Personal history of pulmonary embolism (principal)
CPT/HCPCS: 36415; 85610; Q3014

== ENCOUNTER → 2020-10-16 15:37 | Outpatient (BNVA) | payer MEDICARE, MEDICAID, SELFPAY | PROVIDERS: PCP Internal Medicine; Visit Provider Internal Medicine | DX: I26.99 Other pulmonary embolism without acute cor pulmonale (principal); I82.409 Acute embolism and thrombosis of unspecified deep veins of unspecified lower extremity; Z51.81 Encounter for therapeutic drug level monitoring; Z79.01 Long term (current) use of anticoagulants | CPT/HCPCS: 85610; 99211 ==

== ENCOUNTER → 2020-10-23 15:16 | Outpatient (BNVA) | payer MEDICARE, MEDICAID, SELFPAY | PROVIDERS: PCP Internal Medicine; Visit Provider Internal Medicine | DX: I26.99 Other pulmonary embolism without acute cor pulmonale (principal); I82.409 Acute embolism and thrombosis of unspecified deep veins of unspecified lower extremity; Z51.81 Encounter for therapeutic drug level monitoring; Z79.01 Long term (current) use of anticoagulants | CPT/HCPCS: 85610; 99211 ==

== ENCOUNTER → 2020-10-31 08:37 | Outpatient (BNVA) | payer MEDICARE, MEDICAID, SELFPAY | PROVIDERS: PCP Internal Medicine; Visit Provider Internal Medicine | DX: I26.99 Other pulmonary embolism without acute cor pulmonale (principal); I82.409 Acute embolism and thrombosis of unspecified deep veins of unspecified lower extremity; Z51.81 Encounter for therapeutic drug level monitoring; Z79.01 Long term (current) use of anticoagulants | CPT/HCPCS: 85610; 99211 ==

== ENCOUNTER → 2020-11-14 15:08 | Outpatient (BNVA) | payer MEDICARE, MEDICAID, SELFPAY | PROVIDERS: PCP Internal Medicine; Visit Provider Internal Medicine | DX: I26.99 Other pulmonary embolism without acute cor pulmonale (principal); I82.409 Acute embolism and thrombosis of unspecified deep veins of unspecified lower extremity; Z51.81 Encounter for therapeutic drug level monitoring; Z79.01 Long term (current) use of anticoagulants | CPT/HCPCS: 85610; 99211 ==

== ENCOUNTER → 2020-11-28 15:21 | Outpatient (BNVA) | payer MEDICARE, MEDICAID, SELFPAY | PROVIDERS: PCP Internal Medicine; Visit Provider Internal Medicine | DX: I26.99 Other pulmonary embolism without acute cor pulmonale (principal); I82.409 Acute embolism and thrombosis of unspecified deep veins of unspecified lower extremity; Z51.81 Encounter for therapeutic drug level monitoring; Z79.01 Long term (current) use of anticoagulants | CPT/HCPCS: 85610; 99211 ==

== ENCOUNTER 2020-12-03 23:19 | Emergency (ER) | payer MEDICARE, MEDICAID, SELFPAY ==
[2020-12-03 23:27] VITALS: BP 180/113; PULSE 135; RESP 17; TEMP 36.7; O2SAT 98
[2020-12-04 01:03] VITALS: BMI 27.2
[2020-12-04 01:07] VITALS: BP 175/104; PULSE 59; RESP 16; O2SAT 97
--- NOTE | 2020-12-04 01:24 | ECG_ITS ---
Test Reason : HTN Blood Pressure : / mmHG Vent. Rate : 058 BPM Atrial Rate : 058 BPM P-R Int : 166 ms QRS Dur : 100 ms QT Int : 470 ms P-R-T Axes : 017 -08 017 degrees QTc Int : 461 ms Sinus bradycardia Moderate voltage criteria for LVH, may be normal variant Borderline ECG When compared with ECG of 03-OCT-2020 15:41, Vent. rate has decreased BY 28 BPM Referred By: Bre Weller Electronically Signed By:BHARAT HDEZ
[2020-12-04 01:54] LABS: MANUAL DIFF FLAG NO
[2020-12-04 01:57] LABS: Basophils Percent Auto 0.4 % (0-2); Eosinophils Absolute Auto 0.3 X10*3/uL (0.0-0.4); Eosinophils Percent Auto 4.2 % (0-4); Glucose Urine UA NEG (NEG); Hematocrit 38.9 % (42-52); Hemoglobin 13.2 g/dl (14.0-18.0); Imm Gran Abs Auto 0.01 X10*3/uL (0.00-0.03); Imm Gran Pct Auto 0.1 % (0.0-0.4); Leukocyte Esterase Urine NEG (NEG); Lymphocytes Absolute Auto 3.5 X10*3/uL (1.2-4.9); Lymphocytes Percent Auto 52.1 % (20-40); Mean Corpuscular HGB Conc 33.9 g/dl (31.0-36.0); Mean Corpuscular Hemoglobin 30.8 pg (27.0-33.0); Mean Corpuscular Volume 90.9 fL (80-98); Mean Platelet Volume 9.8 fL (9.4-12.4); Monocytes Absolute Auto 0.6 X10*3/uL (0.1-1.2); Monocytes Percent Auto 9.4 % (2-11); Neutrophils Absolute Auto 2.3 X10*3/uL (2.0-8.3); Neutrophils Percent Auto 33.8 % (45-73); Nitrite Urine NEG (NEG); Platelet Count 207 X10*3/uL (160-400); Red Blood Count 4.28 X10*6/uL (4.60-5.80); Red Cell Distribution Width 14.5 % (11.0-16.0); Specific Gravity - Urine 1.015 (1.005-1.025); Urine Blood TRACE (NEG); Urine Ketones NEG (NEG); Urine Protein NEG (NEG-TRACE); White Blood Count 6.7 X10*3/uL (4.8-10.8)
[2020-12-04 01:58] LABS: Appearance Urine CLEAR; Color Urine YELLOW
[2020-12-04 02:01] LABS: INTERNATIONAL NORM RATIO 2.9 (0.9-1.1); Prothrombin Time 34.3 SEC (10.8-13.0)
[2020-12-04 02:03] LABS: RBC Urine 0-2 /HPF (0); WBC Urine 0-2 /HPF (0-4)
--- NOTE | 2020-12-04 02:15 | ED.GENADULT ---
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 He states that earlier this evening at approximately 7:00 p.m. he noted that he had a headache, checked his blood pressure, and found to be quite elevated. He denies any associated dizziness, visual or speech changes, or unilateral weakness/numbness/tingling and states that the headache has much improved since his arrival to the emergency department. Otherwise, he denies shortness of breath, chest pain/palpitations, GI symptoms, symptoms. Patient states that he took half of his prescribed 20 mg of lisinopril at approximately 11:00 p.m. tonight. He denies current steroid use, but does state he has increased his consumption of boxed/canned foods over the past couple of days. Related Data Home Medications Medication Instructions Recorded Confirmed albuterol sulfate [ProAir HFA] 2 puff INHALATION Q4-6H PRN 09/25/20 10/31/20 atorvastatin 40 mg PO BEDTIME 09/25/20 10/31/20 lisinopril 20 mg PO DAILY 09/25/20 10/31/20 oxycodone 5 mg PO Q8H PRN 09/25/20 10/31/20 sildenafil [Viagra] 100 mg PO DAILY PRN 09/25/20 10/31/20 Previous Rx's Medication Instructions Recorded warfarin 5 mg tablet 5 mg PO DAILY #90 tab 09/10/20 nitrofurantoin monohyd/m-cryst 100 mg PO BID #10 cap 09/25/20 [Macrobid] azithromycin See Rx Instructions .ROUTE 10/03/20 .COMPLEX #6 tab dexamethasone 6 mg PO DAILY 10 Days #10 tab 10/03/20 Allergies Allergy/AdvReac Type Severity Reaction Status Date / Time No Known Drug Allergies Allergy Mild NONE Verified 11/14/20 15:15 [NO KNOWN DRUG ALLERGIES] Review of Systems Review of Systems: Pertinent positives and negatives as stated in HPI and 10 point review of systems is otherwise negative. PMFSH Past Medical History Source: nursing notes reviewed Medical History Asthma COVID-19 DVT (deep venous thrombosis) Pulmonary embolism Social History Social History Alcohol intake: never Smoking Status: Never smoker Use of substances other than those prescribed or required for medical reasons: No Advance Directives: No Physical Exam Vital Signs: Vital Signs: Last Vital Signs Temp 98.0 F 12/03/20 23:27 Pulse 59 12/04/20 01:07 Resp 16 12/04/20 01:07 BP 175/104 H 12/04/20 01:07 Pulse Ox 97 12/04/20 01:07 Body Mass Index 27.2 VITAL SIGNS: Reviewed. GENERAL: Well developed, well nourished, in no acute distress. HEAD: Normocephalic/atraumatic, EYES: PERRLA, EOMI intact EARS: Ext canals without abnormality NOSE: Nares patent bilateral OROPHARYNX: no oral lesions noted, posterior pharynx clear NECK: Supple, no adenopathy LUNGS: Normal breath sounds. SpO2<97> CARDIOVASCULAR: Regular rate and rhythm without noted murmurs, no JVD or lower extremity edema. ABDOMEN: Soft, non-tender, non-distended with bowel sounds. MUSCULOSKELETAL: No tenderness, deformities, or effusions noted on gross inspection. EXTREMITIES: No cyanosis, clubbing or edema. SKIN: Inspection of the skin reveals no rashes NEUROLOGIC: Alert and oriented x 4. Strength and sensation to light touch were grossly intact x 4, no facial asymmetry, no pronator drift. Course Course Course Narrative: This is a 64-year-old male with history and clinical presentation consistent with likely headache secondary to elevated blood pressure secondary to increase in salt consumption. Given that patient is on anticoagulation/headache/hypertension with proceed with CT of head as additional workup. Review of all investigations is negative for of end-organ damage. The high sensitivity troponin is stable on comparison to prior without EKG changes or symptoms of chest pain. CT of the head was negative. All results and findings were discussed with patient at bedside and he was discharged home in stable condition with instructions to avoid salt. Medical Decision Making Lab Data Result diagrams: 12/04/20 01:47 12/04/20 01:47 Labs: Lab Results 12/04/20 12/04/20 12/04/20 Range/Units 01:47 01:47 01:47 WBC 6.7 (4.8-10.8) X10*3/uL RBC 4.28 L (4.60-5.80) X10*6/uL Hgb 13.2 L (14.0-18.0) g/dl Hct 38.9 L (42-52) % MCV 90.9 (80-98) fL MCH 30.8 (27.0-33.0) pg MCHC 33.9 (31.0-36.0) g/dl RDW 14.5 (11.0-16.0) % Plt Count 207 (160-400) X10*3/uL MPV 9.8 (9.4-12.4) fL Immature Gran % (Auto) 0.1 (0.0-0.4) % Neut % (Auto) 33.8 L (45-73) % Lymph % (Auto) 52.1 H (20-40) % [place] % (Auto) 9.4 (2-11) % Eos % (Auto) 4.2 H (0-4) % Baso % (Auto) 0.4 (0-2) % Lymph # (Auto) 3.5 (1.2-4.9) X10*3/uL [place] # (Auto) 0.6 (0.1-1.2) X10*3/uL Eos # (Auto) 0.3 (0.0-0.4) X10*3/uL Baso # (Auto) 0.0 (0.0-0.2) X10*3/uL Abs Immat Gran (auto) 0.01 (0.00-0.03) X10*3/uL Absolute Neuts (auto) 2.3 (2.0-8.3) X10*3/uL Absolute Nucleated RBC 0.000 (0.0-0.012) X10*3/uL Nucleated RBC % (auto) 0.0 (0.0-0.2) /100WBC PT (10.8-13.0) SEC INR (0.9-1.1) Sodium 141 (135-145) mmol/L Potassium 3.8 (3.3-5.1) mmol/l Chloride 106 (96-108) mmol/L Carbon Dioxide 27 (22-29) mmol/L Anion Gap 12 (12-20) BUN 15 (9-16) mg/dL Creatinine 0.86 (0.5-1.4) mg/dL Estim Creat Clear Calc 93.9 Estimated GFR > 60 Random Glucose 87 (60-115) mg/dL Calcium 8.5 (8.4-10.2) mg/dL Total Bilirubin 0.8 (0.0-1.0) mg/dL AST 93 H (5-37) U/L ALT 27 (0-40) U/L Alkaline Phosphatase 58 (39-117) U/L Troponin I High Sens 5.4 (<3.5-35.0) ng/L Total Protein 7.5 (6.5-8.0) g/dL Albumin 4.5 (3.5-5.0) g/dL Urine Color Urine Appearance Urine pH (5.0-8.0) Ur Specific [place] (1.005-1.025) Urine Protein (NEG-TRACE) MG/DL Urine Glucose (UA) (NEG) MG/DL Urine Ketones (NEG) MG/DL Urine Blood (NEG) Urine Nitrite (NEG) Ur Leukocyte Esterase (NEG) Urine RBC (0) /HPF Urine WBC (0-4) /HPF Ur Squamous Epith Cells /LPF Urine Bacteria /LPF 12/04/20 12/04/20 Range/Units 01:47 01:47 WBC (4.8-10.8) X10*3/uL RBC (4.60-5.80) X10*6/uL Hgb (14.0-18.0) g/dl Hct (42-52) % MCV (80-98) fL MCH (27.0-33.0) pg MCHC (31.0-36.0) g/dl RDW (11.0-16.0) % Plt Count (160-400) X10*3/uL MPV (9.4-12.4) fL Immature Gran % (Auto) (0.0-0.4) % Neut % (Auto) (45-73) % Lymph % (Auto) (20-40) % [place] % (Auto) (2-11) % Eos % (Auto) (0-4) % Baso % (Auto) (0-2) % Lymph # (Auto) (1.2-4.9) X10*3/uL [place] # (Auto) (0.1-1.2) X10*3/uL Eos # (Auto) (0.0-0.4) X10*3/uL Baso # (Auto) (0.0-0.2) X10*3/uL Abs Immat Gran (auto) (0.00-0.03) X10*3/uL Absolute Neuts (auto) (2.0-8.3) X10*3/uL Absolute Nucleated RBC (0.0-0.012) X10*3/uL Nucleated RBC % (auto) (0.0-0.2) /100WBC PT 34.3 H D (10.8-13.0) SEC INR 2.9 H (0.9-1.1) Sodium (135-145) mmol/L Potassium (3.3-5.1) mmol/l Chloride (96-108) mmol/L Carbon Dioxide (22-29) mmol/L Anion Gap (12-20) BUN (9-16) mg/dL Creatinine (0.5-1.4) mg/dL Estim Creat Clear Calc Estimated GFR Random Glucose (60-115) mg/dL Calcium (8.4-10.2) mg/dL Total Bilirubin (0.0-1.0) mg/dL AST (5-37) U/L ALT (0-40) U/L Alkaline Phosphatase (39-117) U/L Troponin I High Sens (<3.5-35.0) ng/L Total Protein (6.5-8.0) g/dL Albumin (3.5-5.0) g/dL Urine Color YELLOW Urine Appearance CLEAR Urine pH 6.0 (5.0-8.0) Ur Specific [place] 1.015 (1.005-1.025) Urine Protein NEG (NEG-TRACE) MG/DL Urine Glucose (UA) NEG (NEG) MG/DL Urine Ketones NEG (NEG) MG/DL Urine Blood TRACE (NEG) Urine Nitrite NEG (NEG) Ur Leukocyte Esterase NEG (NEG) Urine RBC 0-2 (0) /HPF Urine WBC 0-2 (0-4) /HPF Ur Squamous Epith Cells NONE /LPF Urine Bacteria NONE /LPF ECG Data Attestation: I personally reviewed and interpreted this ECG as follows: Prior ECG tracings: available for review (10/03/2020 no acute changes on comparison) Interpretation: Sinus bradycardia, HR-E, no evidence of acute ischemia, CO/QRS/QTC are within normal limits. Discharge Plan Discharge Clinical Impression: Hypertension Qualifiers: Hypertension type: unspecified Qualified Code(s): I10 - Essential (primary) hypertension Headache Qualifiers: Headache type: unspecified Headache chronicity pattern: unspecified pattern Intractability: not intractable Qualified Code(s): R51.9 - Headache, unspecified Patient Disposition: Home, Self-Care Instructions: DASH Eating Plan (ED), Hypertension (ED) Additional Instructions: 1. Reanude todos los medicamentos caseros seg?n lo prescrito. 2. Revise las recomendaciones para el uso de fredi. 3. Farzana un seguimiento con azevedo proveedor de atenci?n primaria en 2-3 d?as. Regrese al departamento de emergencias si experimenta un empeoramiento kamla de scooby s?ntomas. Prescriptions: No Action atorvastatin 40 mg Tablet 40 mg PO BEDTIME RF: 0 lisinopril 20 mg Tablet 20 mg PO DAILY RF: 0 sildenafil [Viagra] 100 mg Tablet 100 mg PO DAILY PRN (Reason: Sexual Activity) RF: 0 albuterol sulfate [ProAir HFA] 90 mcg/actuation Hfa Aerosol Inhaler 2 puff INHALATION Q4-6H PRN (Reason: Shortness Of Breath) RF: 0 oxycodone 5 mg Tablet 5 mg PO Q8H PRN (Reason: Pain) RF: 0 nitrofurantoin monohyd/m-cryst [Macrobid] 100 mg capsule 100 mg PO BID Qty: 10 RF: 0 azithromycin 500 mg tablet See Rx Instructions .ROUTE .COMPLEX Qty: 6 RF: 0 dexamethasone 6 mg tablet 6 mg PO DAILY 10 Days Qty: 10 RF: 0 warfarin 5 mg tablet 5 mg PO DAILY Qty: 90 RF: 0 Referrals: Sancho Bean MD [Primary Care Provider] - 2 days (Please re-evaluate patient for recent increase in blood pressure with associated headache. Workup was negative for end-organ damage in the emergency department.) Print Language: Ukrainian
[2020-12-04 02:18] LABS: Alanine Aminotransferase 27 U/L (0-40); Albumin Level 4.5 g/dL (3.5-5.0); Alkaline Phosphatase 58 U/L (39-117); Anion Gap 12 (12-20); Aspartate Amino Transferase 93 U/L (5-37); Bilirubin Total 0.8 mg/dL (0.0-1.0); Blood Urea Nitrogen 15 mg/dL (9-16); Calcium 8.5 mg/dL (8.4-10.2); Carbon Dioxide 27 mmol/L (22-29); Chloride 106 mmol/L (96-108); Creatinine Clr Calc Pharmacy 93.9; Estimated Glomerular Filt Rate > 60; Glucose Random 87 mg/dL (60-115); Potassium 3.8 mmol/l (3.3-5.1); Sodium 141 mmol/L (135-145); Total Protein 7.5 g/dL (6.5-8.0)
--- NOTE | 2020-12-04 02:18 | CT_ITS ---
EXAMINATION: CT HEAD WITHOUT CONTRAST CLINICAL INFORMATION: Hypertension COMPARISON: 10/18/2016 TECHNIQUE: Contiguous axial imaging was performed from the skull base to vertex without intravenous administration of contrast. This CT examination was performed using dose optimization techniques as appropriate, variously including the following: *Automated exposure control *Adjustment of mA and/or kV according to patient size (this includes techniques or standardized protocols for targeted exams where dose is matched to indication/reason for exam; i.e. extremities or head) *Use of iterative reconstruction technique DLP: 733 mGy-cm FINDINGS: There is no evidence of acute intracranial hemorrhage or territorial infarction. No abnormal mass effect or midline shift is seen. Recio to white matter differentiation is well preserved. No extra-axial fluid collections are identified. The ventricles are normal in size. There is moderate periventricular and patchy subcortical white matter hypoattenuation consistent with chronic small vessel ischemic disease. The osseous structures and soft tissues are normal. The mastoid air cells and visualized portions of the paranasal sinuses are well aerated. CT/CT head/brain wo con IMPRESSION: No acute intracranial pathology. Chronic white matter changes as noted above.
[2020-12-04 02:21] LABS: Troponin-I High Sensitivity 5.4 ng/L (<3.5-35.0)
[2020-12-04] MEDS: Acetaminophen 325 MG TABLET 975 MG PO (02:34)
== END 2020-12-04 03:38 | disposition home or self-care (01) ==
PROVIDERS: Emergency Provider Student in an Organized Health Care Education/Training Program; PCP Internal Medicine
DX: I10 Essential (primary) hypertension (principal); R51.9 Headache, unspecified; Z86.16 Personal history of COVID-19; Z86.718 Personal history of other venous thrombosis and embolism; Z86.711 Personal history of pulmonary embolism; Z79.899 Other long term (current) drug therapy
CPT/HCPCS: 36415; 70450; 80053; 81001; 84484; 85025; 85610; 93005; 99284

== ENCOUNTER 2020-12-06 02:34 | Emergency (ER) | payer MEDICARE, MEDICAID, SELFPAY ==
[2020-12-06 02:38] VITALS: BP 158/92; PULSE 67; RESP 16; TEMP 36.8; O2SAT 96
[2020-12-06 02:54] VITALS: PULSE 65; RESP 18; TEMP 36.7; O2SAT 98; BMI 32.5
--- NOTE | 2020-12-06 03:06 | ECG_ITS ---
Test Reason : CHEST PAIN Blood Pressure : / mmHG Vent. Rate : 061 BPM Atrial Rate : 061 BPM P-R Int : 170 ms QRS Dur : 102 ms QT Int : 458 ms P-R-T Axes : 021 -13 020 degrees QTc Int : 461 ms Normal sinus rhythm Moderate voltage criteria for LVH, may be normal variant Borderline ECG When compared with ECG of 04-DEC-2020 01:31, No significant change was found Referred By: Mirella Restrepo Electronically Signed By:BHARAT HDEZ
--- NOTE | 2020-12-06 03:07 | ED_ITS ---
HPI - Chest Pain General Chief Complaint: General Medical Stated Complaint: High BP Time Seen by Provider: 12/06/20 03:01 Source: patient Mode of arrival: ambulatory Limitations: no limitations History of Present Illness HPI narrative: Patient comes emergency room complaining of high blood pressure. Patient states that he was sleeping, he woke up immediately and jumped out of bed, and then decided to take his blood pressure. Patient got scared, started having chest pressure and came to the emergency room. At this time, patient has no chest pain, states he feels substernal pressure, no shortness of breath, no diaphoresis. Patient was seen here 2 days ago, complaining of high blood pressure. Patient was started on lisinopril 20 mg. Patient states the last time he had a headache, but this time he has no headache Related Data Home Medications Medication Instructions Recorded Confirmed albuterol sulfate [ProAir HFA] 2 puff INHALATION Q4-6H PRN 09/25/20 10/31/20 atorvastatin 40 mg PO BEDTIME 09/25/20 10/31/20 lisinopril 20 mg PO DAILY 09/25/20 10/31/20 oxycodone 5 mg PO Q8H PRN 09/25/20 10/31/20 sildenafil [Viagra] 100 mg PO DAILY PRN 09/25/20 10/31/20 Previous Rx's Medication Instructions Recorded warfarin 5 mg tablet 5 mg PO DAILY #90 tab 09/10/20 nitrofurantoin monohyd/m-cryst 100 mg PO BID #10 cap 09/25/20 [Macrobid] azithromycin See Rx Instructions .ROUTE 10/03/20 .COMPLEX #6 tab dexamethasone 6 mg PO DAILY 10 Days #10 tab 10/03/20 Allergies Allergy/AdvReac Type Severity Reaction Status Date / Time No Known Drug Allergies Allergy Mild NONE Verified 11/14/20 15:15 [NO KNOWN DRUG ALLERGIES] Review of Systems Review of Systems: Constitutional : No Weight loss, No Fever, No Chills, No Night Sweats, No Fatigue, No Malaise ENT/Mouth : No Hearing loss, No Ear Pain, No Nasal Congestion, No Sinus Pain, No Hoarseness, No sore throat, No Rhinorrhea, No Swallowing Difficulty Eyes: No Eye Pain, No Swelling, No Redness, No Foreign Body, No Discharge, No Vision Changes Cardiovascular : Complaining of mild chest pressure, No SOB, No Dyspnea on Exertion, No Orthopnea, No Edema, No Palpitations Respiratory : No Cough, No Sputum, No Wheezing, No Smoke Exposure, No Dyspnea Gastrointestinal : No Nausea, No Vomiting, No Diarrhea, No Constipation, No abdominal Pain, No Hematochezia, No Melena Genitourinary : no irregular bleeding, No Dysuria, No Urinary Frequency, No Hematuria, No Urinary Incontinence, No Urgency, No Flank Pain, No Urinary Flow Changes, No Hesitancy Musculoskeletal : No joint pain, No Myalgias, No Joint Swelling Skin : No Skin Lesions, No rash Neuro : No Weakness, No Numbness, No Paresthesias, No Loss of Consciousness, No Dizziness, No Headache Psych : No Anxiety/Panic, No Depression, No SI/HI/AH/VH, No Social Issues, Heme/Lymph: No Bruising, No Bleeding,No Lymphadenopathy Endocrine : No Polyuria, No Polydipsia, No Temperature Intolerance PMFSH Past Medical History Medical History Asthma COVID-19 DVT (deep venous thrombosis) Pulmonary embolism Social History Social History Alcohol intake: never Smoking Status: Never smoker Advance Directives: No Physical Exam Vital Signs: Vital Signs: Last Vital Signs Temp 97.6 F 12/06/20 04:00 Pulse 61 12/06/20 04:00 Resp 16 12/06/20 04:00 BP 153/90 H 12/06/20 04:00 Pulse Ox 97 12/06/20 04:00 Body Mass Index 32.5 Appearance: Alert. Oriented X3. No acute distress. Anxious Eyes: Pupils equal, round and reactive to light. ENT: Pharynx normal. Neck: Normal inspection. Neck supple. No lymph nodes noted. No crepitus CVS: Normal heart rate and rhythm. Pulses normal. Normal S1 and S2 Respiratory: No respiratory distress. Breath sounds normal. No Wheezing. No rales Abdomen: Soft and nontender. No rigidity. No distention. good BS x4 Skin: Skin warm and dry. Normal skin color. Normal skin turgor. Extremities: No lower extremity edema. No lower extremity edema. No Lacerations. No Rash Neuro: Oriented X 3. No motor deficit. No sensory deficit. Moving all extermities. No slurred speech. Course Course Course Narrative: I discussed the labs with the patient, I instructed the patient to take 40 mg of lisinopril and have close follow-up with his primary care physician for blood pressure control. Patient remains asymptomatic, blood pressure on discharge 153/89 MDM - Chest Pain Lab Data Result diagrams: 12/06/20 04:50 12/06/20 04:50 Labs: Lab Results 12/06/20 12/06/20 12/06/20 Range/Units 04:50 04:50 04:50 WBC 5.9 (4.8-10.8) X10*3/uL RBC 4.01 L (4.60-5.80) X10*6/uL Hgb 12.3 L (14.0-18.0) g/dl Hct 36.4 L (42-52) % MCV 90.8 (80-98) fL MCH 30.7 (27.0-33.0) pg MCHC 33.8 (31.0-36.0) g/dl RDW 14.3 (11.0-16.0) % Plt Count 217 (160-400) X10*3/uL MPV 9.7 (9.4-12.4) fL Immature Gran % (Auto) 0.3 (0.0-0.4) % Neut % (Auto) 37.7 L (45-73) % Lymph % (Auto) 47.0 H (20-40) % [place] % (Auto) 10.5 (2-11) % Eos % (Auto) 4.0 (0-4) % Baso % (Auto) 0.5 (0-2) % Lymph # (Auto) 2.8 (1.2-4.9) X10*3/uL [place] # (Auto) 0.6 (0.1-1.2) X10*3/uL Eos # (Auto) 0.2 (0.0-0.4) X10*3/uL Baso # (Auto) 0.0 (0.0-0.2) X10*3/uL Abs Immat Gran (auto) 0.02 (0.00-0.03) X10*3/uL Absolute Neuts (auto) 2.2 (2.0-8.3) X10*3/uL Absolute Nucleated RBC 0.000 (0.0-0.012) X10*3/uL Nucleated RBC % (auto) 0.0 (0.0-0.2) /100WBC Sodium 142 (135-145) mmol/L Potassium 4.1 (3.3-5.1) mmol/l Chloride 107 (96-108) mmol/L Carbon Dioxide 27 (22-29) mmol/L Anion Gap 12 (12-20) BUN 19 H (9-16) mg/dL Creatinine 1.00 (0.5-1.4) mg/dL Estim Creat Clear Calc 85.8 Estimated GFR > 60 Random Glucose 93 (60-115) mg/dL Calcium 8.8 (8.4-10.2) mg/dL Troponin I High Sens < 3.5 (<3.5-35.0) ng/L ECG Data ECG #1: Attestation: I personally reviewed and interpreted this ECG as follows: (Heart rate 61, normal sinus rhythm, nonspecific ST segment elevation in V2 and V3, T-wave inversion in lead III with no ST segment elevation or depression) Discharge Plan Discharge Clinical Impression: Chest pressure, High blood pressure Patient Disposition: Home, Self-Care Instructions: Hypertension (ED), Chest Pain (ED) Additional Instructions: Please take 2 tablets of lisinopril (total of 40mg daily) and please have close follow-up with your primary care physician. Prescriptions: No Action atorvastatin 40 mg Tablet 40 mg PO BEDTIME RF: 0 lisinopril 20 mg Tablet 20 mg PO DAILY RF: 0 sildenafil [Viagra] 100 mg Tablet 100 mg PO DAILY PRN (Reason: Sexual Activity) RF: 0 albuterol sulfate [ProAir HFA] 90 mcg/actuation Hfa Aerosol Inhaler 2 puff INHALATION Q4-6H PRN (Reason: Shortness Of Breath) RF: 0 oxycodone 5 mg Tablet 5 mg PO Q8H PRN (Reason: Pain) RF: 0 nitrofurantoin monohyd/m-cryst [Macrobid] 100 mg capsule 100 mg PO BID Qty: 10 RF: 0 azithromycin 500 mg tablet See Rx Instructions .ROUTE .COMPLEX Qty: 6 RF: 0 dexamethasone 6 mg tablet 6 mg PO DAILY 10 Days Qty: 10 RF: 0 warfarin 5 mg tablet 5 mg PO DAILY Qty: 90 RF: 0
[2020-12-06] MEDS: Aspirin Enteric Coated 325 MG TABLET.DR PO (03:12)
[2020-12-06 04:00] VITALS: BP 153/90; PULSE 61; RESP 16; TEMP 36.4; O2SAT 97
--- NOTE | 2020-12-06 04:39 | PC.NURSE ---
ASSUMED CARE OF PT. PT RESTING IN STRETCHER. PT GETTING CLEANED UP AFTER PEEING ON FLOOR. PT ON MONITOR. PT IS CONSTANTLY REMOVING LEADS FROM CHEST. PT DENIES ANY COMPLAINTS. PT AWAITING FOR PT EVAL IN THE MORNING. WILL CONTINUE TO MONITOR PT.
[2020-12-06 04:55] LABS: Basophils Percent Auto 0.5 % (0-2); Eosinophils Absolute Auto 0.2 X10*3/uL (0.0-0.4); Hematocrit 36.4 % (42-52); Hemoglobin 12.3 g/dl (14.0-18.0); Imm Gran Abs Auto 0.02 X10*3/uL (0.00-0.03); Imm Gran Pct Auto 0.3 % (0.0-0.4); Lymphocytes Absolute Auto 2.8 X10*3/uL (1.2-4.9); MANUAL DIFF FLAG NO; Mean Corpuscular HGB Conc 33.8 g/dl (31.0-36.0); Mean Corpuscular Hemoglobin 30.7 pg (27.0-33.0); Mean Corpuscular Volume 90.8 fL (80-98); Mean Platelet Volume 9.7 fL (9.4-12.4); Monocytes Absolute Auto 0.6 X10*3/uL (0.1-1.2); Monocytes Percent Auto 10.5 % (2-11); Neutrophils Absolute Auto 2.2 X10*3/uL (2.0-8.3); Neutrophils Percent Auto 37.7 % (45-73); Platelet Count 217 X10*3/uL (160-400); Red Blood Count 4.01 X10*6/uL (4.60-5.80); Red Cell Distribution Width 14.3 % (11.0-16.0); White Blood Count 5.9 X10*3/uL (4.8-10.8)
[2020-12-06 05:27] LABS: Anion Gap 12 (12-20); Blood Urea Nitrogen 19 mg/dL (9-16); Calcium 8.8 mg/dL (8.4-10.2); Carbon Dioxide 27 mmol/L (22-29); Chloride 107 mmol/L (96-108); Creatinine Clr Calc Pharmacy 85.8; Estimated Glomerular Filt Rate > 60; Glucose Random 93 mg/dL (60-115); Potassium 4.1 mmol/l (3.3-5.1); Sodium 142 mmol/L (135-145)
[2020-12-06 05:30] LABS: Troponin-I High Sensitivity < 3.5 ng/L (<3.5-35.0)
[2020-12-06 06:22] VITALS: BP 142/84; PULSE 58; RESP 18
[2020-12-06 06:38] VITALS: BP 114/78; PULSE 100; RESP 18; O2SAT 97
== END 2020-12-06 06:20 | disposition home or self-care (01) ==
PROVIDERS: Emergency Provider Emergency Medicine; PCP Internal Medicine
DX: R07.89 Other chest pain (principal); R03.0 Elevated blood-pressure reading, without diagnosis of hypertension; Z79.899 Other long term (current) drug therapy; Z86.16 Personal history of COVID-19; Z79.01 Long term (current) use of anticoagulants; Z86.718 Personal history of other venous thrombosis and embolism
CPT/HCPCS: 36415; 80048; 84484; 85025; 93005; 99283; 99284

== ENCOUNTER → 2020-12-12 15:15 | Outpatient (BNVA) | payer MEDICARE, MEDICAID, SELFPAY | PROVIDERS: PCP Internal Medicine; Visit Provider Internal Medicine | DX: I26.99 Other pulmonary embolism without acute cor pulmonale (principal); Z86.718 Personal history of other venous thrombosis and embolism; Z51.81 Encounter for therapeutic drug level monitoring; Z79.01 Long term (current) use of anticoagulants | CPT/HCPCS: 85610; 99211 ==

== ENCOUNTER 2020-12-22 02:50 | Emergency (ER) | payer MEDICARE, MEDICAID, SELFPAY ==
[2020-12-22 03:53] VITALS: BP 144/71; PULSE 70; RESP 18; TEMP 35.8; O2SAT 97; BMI 28.2
--- NOTE | 2020-12-22 05:05 | ED_ITS ---
HPI - General Adult General Chief complaint: General Medical Stated complaint: High Blood Pressure Time Seen by Provider: 12/22/20 04:43 Source: patient Mode of arrival: ambulatory Limitations: no limitations History of Present Illness HPI narrative: 65-year-old male recently diagnosed with hypertension patient is taking lisinopril which is recently prescribed by his PCP, patient today took his blood pressure by his home machine his blood pressure was on the high side systolic of 180/ 90, patient has no chest pain, no headache, no neurological symptoms, no blurry vision, no abdominal pain. While in the emergency department blood pressure is 140/70 and patient is asymptomatic. Related Data Home Medications Medication Instructions Recorded Confirmed albuterol sulfate [ProAir HFA] 2 puff INHALATION Q4-6H PRN 09/25/20 10/31/20 atorvastatin 40 mg PO BEDTIME 09/25/20 10/31/20 lisinopril 20 mg PO DAILY 09/25/20 10/31/20 oxycodone 5 mg PO Q8H PRN 09/25/20 10/31/20 sildenafil [Viagra] 100 mg PO DAILY PRN 09/25/20 10/31/20 Previous Rx's Medication Instructions Recorded warfarin 5 mg tablet 5 mg PO DAILY #90 tab 09/10/20 nitrofurantoin monohyd/m-cryst 100 mg PO BID #10 cap 09/25/20 [Macrobid] azithromycin See Rx Instructions .ROUTE 10/03/20 .COMPLEX #6 tab dexamethasone 6 mg PO DAILY 10 Days #10 tab 10/03/20 Allergies Allergy/AdvReac Type Severity Reaction Status Date / Time No Known Drug Allergies Allergy Mild NONE Verified 12/12/20 15:16 [NO KNOWN DRUG ALLERGIES] Review of Systems Review of Systems: All other systems are reviewed and are negative Constitutional: Reports as per HPI and Reports no additional constitutional complaints Eyes: Reports as per HPI and Reports no additional eye complaints Reports system reviewed and no additional complaints, except as documented Cardiovascular: Reports as per HPI and Reports no additional cardiovascular complaints Respiratory: Reports as per HPI and Reports no additional respiratory complaints Gastrointestinal: Reports as per HPI and Reports no additional gastrointestinal complaints Genitourinary: Reports no additional female genitourinary complaints Musculoskeletal: Reports no additional musculoskeletal complaints Skin/Breast: Reports system reviewed and no additional complaints, except as docu Psychiatric: Reports no additional psychiatric complaints Endocrine: Reports no additional endocrine complaints Hematologic/Lymphatic: Reports no additional hematologic/lymphatic complaints Allergic/Immunologic: Reports no additional allergic/immunologic complaints Reports system reviewed and no additional complaints, except as documented and Reports Abnormal speech present [facility] Past Medical History Medical History Asthma COVID-19 DVT (deep venous thrombosis) Pulmonary embolism Social History Social History Alcohol intake: never Smoking Status: Never smoker Smoked in Last 30 Days: No Use of substances other than those prescribed or required for medical reasons: No Advance Directives: No Advance Directives Information Provided: No Physical Exam Vital Signs: Vital Signs: Last Vital Signs Temp 96.4 F L 12/22/20 03:53 Pulse 70 12/22/20 03:53 Resp 18 12/22/20 03:53 BP 144/71 H 12/22/20 03:53 Pulse Ox 97 12/22/20 03:53 Body Mass Index 28.2 Vital signs have been reviewed as normal and appeared to be correct. Blood pressure in the high range. Heart rate normal. Respiration rate normal. Temperature normal. Oxygen saturation normal. Appearance: Alert. Oriented X3. No acute distress. Head: Normal external exam. Normocephalic. Atraumatic. No Cm signs noted. No raccoon eyes noted Eyes: PERRLA. EOMI. Conjunctiva and sclera normal. Eyelids normal. ENT: EAC normal. TM's Normal. Pharynx normal. Uvula midline. Moist mucous membranes. No trismus noted. No drooling noted. No muffled voice noted. Neck: Normal inspection. Neck supple. FROM. No adenopathy. Thyroid Normal. No meningeal signs. No neck mass noted. CVS: Normal heart rate and rhythm. Heart sound normal. No murmurs noted. Pulses normal throughout. Respiratory: No respiratory distress. Painless inspiration. Breath sounds normal. No wheezes/rales/rhonchi noted. Chest nontender. No accessory muscle usage noted or decreased air movement noted. Abdomen: Soft and nontender. Bowel sounds normal in all 4 quadrants. No distention noted. No organomegaly noted. No visible injury noted. Back: No CVA tenderness. Full range of motion noted. Skin: Skin warm and dry. Normal skin color. Normal skin turgor. No rashes/lesions/lacerations noted. Extremities: No lower extremity edema. Extremities exhibit normal range of motion. Extremities nontender. Neuro: Oriented X 3. No motor deficit. No sensory deficit. Reflexes normal. Course Course Course Narrative: Assessment and plan. 65-year-old male came in for high blood pressure reading at home, patient is asymptomatic now. Patient was advised to follow-up with PCP. Discharge Plan Discharge Clinical Impression: Hypertension Qualifiers: Hypertension type: unspecified Qualified Code(s): I10 - Essential (primary) hypertension Patient Disposition: Home, Self-Care Instructions: Hypertension (ED) Prescriptions: No Action atorvastatin 40 mg Tablet 40 mg PO BEDTIME RF: 0 lisinopril 20 mg Tablet 20 mg PO DAILY RF: 0 sildenafil [Viagra] 100 mg Tablet 100 mg PO DAILY PRN (Reason: Sexual Activity) RF: 0 albuterol sulfate [ProAir HFA] 90 mcg/actuation Hfa Aerosol Inhaler 2 puff INHALATION Q4-6H PRN (Reason: Shortness Of Breath) RF: 0 oxycodone 5 mg Tablet 5 mg PO Q8H PRN (Reason: Pain) RF: 0 nitrofurantoin monohyd/m-cryst [Macrobid] 100 mg capsule 100 mg PO BID Qty: 10 RF: 0 azithromycin 500 mg tablet See Rx Instructions .ROUTE .COMPLEX Qty: 6 RF: 0 dexamethasone 6 mg tablet 6 mg PO DAILY 10 Days Qty: 10 RF: 0 warfarin 5 mg tablet 5 mg PO DAILY Qty: 90 RF: 0 Referrals: Sancho Bean MD [Primary Care Provider] - 2 days
== END 2020-12-22 05:23 | disposition home or self-care (01) ==
PROVIDERS: Emergency Provider Emergency Medicine; PCP Internal Medicine
DX: I10 Essential (primary) hypertension (principal); Z86.16 Personal history of COVID-19; Z86.718 Personal history of other venous thrombosis and embolism; Z79.01 Long term (current) use of anticoagulants; Z86.711 Personal history of pulmonary embolism; Z79.899 Other long term (current) drug therapy
CPT/HCPCS: 99282; 99283

== ENCOUNTER → 2020-12-27 15:05 | Outpatient (BNVA) | payer MEDICARE, MEDICAID, SELFPAY | PROVIDERS: PCP Internal Medicine; Visit Provider Internal Medicine | DX: I26.99 Other pulmonary embolism without acute cor pulmonale (principal); I82.409 Acute embolism and thrombosis of unspecified deep veins of unspecified lower extremity; Z51.81 Encounter for therapeutic drug level monitoring; Z79.01 Long term (current) use of anticoagulants | CPT/HCPCS: 85610; 99211 ==

== ENCOUNTER → 2021-01-10 15:33 | Outpatient (BNVA) | payer MEDICARE, MEDICAID, SELFPAY | PROVIDERS: PCP Internal Medicine; Visit Provider Internal Medicine | DX: I26.99 Other pulmonary embolism without acute cor pulmonale (principal); I82.409 Acute embolism and thrombosis of unspecified deep veins of unspecified lower extremity; Z51.81 Encounter for therapeutic drug level monitoring; Z79.01 Long term (current) use of anticoagulants | CPT/HCPCS: 85610; 99211 ==

== ENCOUNTER → 2021-01-28 15:23 | Outpatient (BNVA) | payer MEDICARE, MEDICAID, SELFPAY | PROVIDERS: PCP Internal Medicine; Visit Provider Internal Medicine | DX: I26.99 Other pulmonary embolism without acute cor pulmonale (principal); I82.409 Acute embolism and thrombosis of unspecified deep veins of unspecified lower extremity; Z51.81 Encounter for therapeutic drug level monitoring; Z79.01 Long term (current) use of anticoagulants | CPT/HCPCS: 85610; 99211 ==

== ENCOUNTER → 2021-02-18 15:22 | Outpatient (BNVA) | payer MEDICARE, MEDICAID, SELFPAY | PROVIDERS: PCP Internal Medicine; Visit Provider Internal Medicine | DX: I82.409 Acute embolism and thrombosis of unspecified deep veins of unspecified lower extremity (principal); I26.99 Other pulmonary embolism without acute cor pulmonale; Z79.01 Long term (current) use of anticoagulants; Z51.81 Encounter for therapeutic drug level monitoring | CPT/HCPCS: 85610; 99211 ==

== ENCOUNTER → 2021-02-25 15:16 | Outpatient (BNVA) | payer MEDICARE, MEDICAID, SELFPAY | PROVIDERS: PCP Internal Medicine; Visit Provider Internal Medicine | DX: I26.99 Other pulmonary embolism without acute cor pulmonale (principal); I82.409 Acute embolism and thrombosis of unspecified deep veins of unspecified lower extremity; Z79.01 Long term (current) use of anticoagulants; Z51.81 Encounter for therapeutic drug level monitoring | CPT/HCPCS: 85610; 99211 ==

== ENCOUNTER → 2021-03-18 15:50 | Outpatient (BNVA) | payer MEDICARE, MEDICAID, SELFPAY | PROVIDERS: PCP Internal Medicine; Visit Provider Internal Medicine | DX: I26.99 Other pulmonary embolism without acute cor pulmonale (principal); I82.409 Acute embolism and thrombosis of unspecified deep veins of unspecified lower extremity; Z51.81 Encounter for therapeutic drug level monitoring; Z79.01 Long term (current) use of anticoagulants | CPT/HCPCS: 85610; 99211 ==

== ENCOUNTER 2021-04-02 10:49 | Emergency (ER) | payer MEDICARE, MEDICAID, SELFPAY ==
[2021-04-02 11:29] VITALS: BP 125/88; PULSE 67; RESP 18; TEMP 36.2; O2SAT 96; BMI 28.5
[2021-04-02] MEDS: Amoxicillin/Potassium Clav 875 MG TABLET PO (13:05)
[2021-04-02] MEDS: Diphth,Pertus(ACell),Tet Adult 0.5 ML SYRINGE IM (13:05)
[2021-04-02] MEDS: Rabies Vaccine (PCEC)/PF 1 ML VIAL IM (13:07)
[2021-04-02] MEDS: Rabies Immune Globulin/PF 300 UNIT/ML VIAL 1859.72 UNIT IM (13:11)
--- NOTE | 2021-04-02 14:04 | ED.ANIMALBIT ---
HPI - Animal Bite General Chief Complaint: Animal Bite <TATIANNA Tang Last Filed: 04/02/21 14:20> Stated Complaint: LEG PAIN <TATIANNA Tang Last Filed: 04/02/21 14:20> Time Seen by Provider: 04/02/21 12:16 <TATIANNA Tang Last Filed: 04/02/21 14:20> Source: patient <TATIANNA Tang Last Filed: 04/02/21 14:20> Mode of arrival: ambulatory <TATIANNA Tang Last Filed: 04/02/21 14:20> History of Present Illness HPI narrative: 65-year-old male with a past medical history of asthma, DVT/PE, COVID-19, presenting to the ED complaining of dog bite to right thigh [employer] s/p throwing out the trash. States it was an unknown dog, likely not up-to-date on vaccinations, patient unknown tetanus status. Denies other injury, fall to ground, head trauma, LOC, numbness, tingling <TATIANNA Tang Last Filed: 04/02/21 14:20> MD complaint: animal bite <TATIANNA Tang Last Filed: 04/02/21 14:20> Related Data Home Medications: Home Medications Medication Instructions Recorded Confirmed albuterol sulfate [ProAir HFA] 2 puff INHALATION Q4-6H PRN 09/25/20 02/25/21 atorvastatin 40 mg PO BEDTIME 09/25/20 02/25/21 lisinopril 20 mg PO DAILY 09/25/20 02/25/21 oxycodone 5 mg PO Q8H PRN 09/25/20 02/25/21 sildenafil [Viagra] 100 mg PO DAILY PRN 09/25/20 02/25/21 Previous Rx's Medication Instructions Recorded warfarin 5 mg tablet 5 mg PO DAILY #90 tab 09/10/20 nitrofurantoin monohyd/m-cryst 100 mg PO BID #10 cap 09/25/20 [Macrobid] azithromycin See Rx Instructions .ROUTE 10/03/20 .COMPLEX #6 tab dexamethasone 6 mg PO DAILY 10 Days #10 tab 10/03/20 amoxicillin-pot clavulanate 1 tab PO Q12H 7 Days #14 tab 04/02/21 [Augmentin] <TATIANNA Tang - Last Filed: 04/02/21 14:20> Allergies/Adverse Reactions: Allergies Allergy/AdvReac Type Severity Reaction Status Date / Time No Known Drug Allergies Allergy Mild NONE Verified 04/09/21 15:33 [NO KNOWN DRUG ALLERGIES] <TATIANNA Tang - Last Filed: 04/02/21 14:20> Review of Systems Review of Systems: Constitutional: No Fever, No Chills Gastrointestinal: No Nausea, No Vomiting, No Abdominal pain Musculoskeletal: No joint pain, No Myalgias, No Joint Swelling Skin: +bit wound Neuro: No Weakness, No Numbness, No Paresthesias, no headache, no LOC <TATIANNA Tang - Last Filed: 04/02/21 14:20> Yes all other systems are reviewed and are negative <TATIANNA Tang - Last Filed: 04/02/21 14:20> PMFSH Past Medical History Attestation statement: The following information was validated with the patient. <TATIANNA Tang - Last Filed: 04/02/21 14:20> Medical History: Medical History Asthma COVID-19 DVT (deep venous thrombosis) Pulmonary embolism <TATIANNA Tang - Last Filed: 04/02/21 14:20> Social History Social History: Social History Alcohol intake: never <TATIANNA Tang - Last Filed: 04/02/21 14:20> Physical Exam Vital Signs: Vital Signs: Last Vital Signs Temp 96.9 F 04/02/21 14:10 Pulse 63 04/02/21 14:10 Resp 16 04/02/21 14:10 BP 159/89 H 04/02/21 14:10 Pulse Ox 97 04/02/21 14:10 Body Mass Index 28.5 <TATIANNA Tang - Last Filed: 04/02/21 14:20> Vital Signs: Last Vital Signs Temp 96.9 F 04/02/21 14:10 Pulse 63 04/02/21 14:10 Resp 16 04/02/21 14:10 BP 159/89 H 04/02/21 14:10 Pulse Ox 97 04/02/21 14:10 Body Mass Index 28.5 <Vinny Valladares MD - Last Filed: 04/26/21 15:34> Const: General: cooperative, healthy appearing, comfortable and no acute distress <TATIANNA Tang - Last Filed: 04/02/21 14:20> Orientation/consciousness: patient oriented x3 <Polly Zendejas NE - Last Filed: 04/02/21 14:20> Limitations: no limitations <Polly Zendejas PA - Last Filed: 04/02/21 14:20> HENMT: Head: Yes normal to inspection <Polly Zendejas NE - Last Filed: 04/02/21 14:20> Ears: hearing grossly normal bilaterally <TATIANNA Tang - Last Filed: 04/02/21 14:20> General nose exam: Normal external nose present <Polly Zendejas NE - Last Filed: 04/02/21 14:20> Face and sinus: Yes normal facial exam <TATIANNA Tang - Last Filed: 04/02/21 14:20> Eyes: General: appearance normal, both eyes and all related structures <Polly Zendejas NE - Last Filed: 04/02/21 14:20> EOM: EOMs intact bilaterally <TATIANNA Tang - Last Filed: 04/02/21 14:20> Neck: Neck: Yes normal visual inspection and Yes no meningeal signs <TATIANNA Tang - Last Filed: 04/02/21 14:20> Resp: Effort & Inspection: normal respiratory effort <TATIANNA Tang - Last Filed: 04/02/21 14:20> Cardio: Rate: regular rate <Polly Zendejas NE - Last Filed: 04/02/21 14:20> Skin: Other: + bite wound noted to right upper thigh, no surrounding cellulitis/erythema/streaking, no fluctuance or induration <TATIANNA Tang - Last Filed: 04/02/21 14:20> Rashes: no rashes <Polly Zendejas NE - Last Filed: 04/02/21 14:20> Neuro: General: patient oriented x3 and no meningeal signs <TATIANNA Tang - Last Filed: 04/02/21 14:20> Gait exam (Neuro): Normal gait present <TATIANNA Tang Last Filed: 04/02/21 14:20> Extrem: General: Yes normal to inspection <TATIANNA Tang - Last Filed: 04/02/21 14:20> Course Course Course Narrative: I have reviewed the chart <Vinny Valladares MD - Last Filed: 04/26/21 15:34> MDM - Animal Bite MDM Narrative Medical decision making narrative: 65-year-old male with a past medical history of asthma, DVT/PE, COVID-19, presenting to the ED complaining of dog bite to right thigh [employer] s/p throwing out the trash. On exam VSS, NAD/well-appearing, bite wound noted right upper thigh without active infection. Will update patient with tetanus, give rabies immune globulin/vaccine, and 1st dose of Augmentin <TATIANNA Tang - Last Filed: 04/02/21 14:20> Discharge Plan Discharge Clinical Impression: Dog bite <TATIANNA Tang - Last Filed: 04/02/21 14:20> Patient Disposition: Home, Self-Care <TATIANNA Tang - Last Filed: 04/02/21 14:20> Instructions: Animal Bite (ED) <TATIANNA Tang - Last Filed: 04/02/21 14:20> Additional Instructions: You were bitten by an unknown dog today, dog bites have a high chance of getting infected, Augmentin is an antibiotic, take as prescribed. Keep a close eye on the wound, if it begins to look red, swollen, has/drainage, you fever 6 return to the ED immediately realigning you were given the rabies vaccine and immunoglobulin. You need to follow-up in short-stay surgery for the remaining doses of the rabies vaccine. The remaining dosages need to be given on: 04/05/2021, and Hoy lo mordi? un emiliano desconocido, las mordeduras de emiliano tienen brenda ángel probabilidad de infectarse, Augmentin es un antibi?stefan, t?finney seg?n lo prescrito. Est? atento a la herida, si comienza a verse enrojecida, hinchada, tiene / supura, tiene fiebre 6 regrese al servicio de urgencias inmediatamente realine?ndose la vacuna contra la reba y la inmunoglobulina. Es necesario realizar un seguimiento en brenda cirug?a de corta estancia para las dosis restantes de la vacuna contra la reba. Las dosis restantes deben administrarse el: 05/04/2021, y <TATIANNA Tang - Last Filed: 04/02/21 14:20> Prescriptions: New amoxicillin-pot clavulanate [Augmentin] 875-125 mg tablet 1 tab PO Q12H 7 Days Qty: 14 RF: 0 No Action atorvastatin 40 mg Tablet 40 mg PO BEDTIME RF: 0 lisinopril 20 mg Tablet 20 mg PO DAILY RF: 0 sildenafil [Viagra] 100 mg Tablet 100 mg PO DAILY PRN (Reason: Sexual Activity) RF: 0 albuterol sulfate [ProAir HFA] 90 mcg/actuation Hfa Aerosol Inhaler 2 puff INHALATION Q4-6H PRN (Reason: Shortness Of Breath) RF: 0 oxycodone 5 mg Tablet 5 mg PO Q8H PRN (Reason: Pain) RF: 0 nitrofurantoin monohyd/m-cryst [Macrobid] 100 mg capsule 100 mg PO BID Qty: 10 RF: 0 azithromycin 500 mg tablet See Rx Instructions .ROUTE .COMPLEX Qty: 6 RF: 0 dexamethasone 6 mg tablet 6 mg PO DAILY 10 Days Qty: 10 RF: 0 warfarin 5 mg tablet 5 mg PO DAILY Qty: 90 RF: 0 <TATIANNA Tang - Last Filed: 04/02/21 14:20> Interventions: ED Discharge Assessment Last Done: 04/02/21 14:23 <TATIANNA Tang - Last Filed: 04/02/21 14:20> Discharge Date/Time: 04/02/21 14:24 <TATIANNA Tang - Last Filed: 04/02/21 14:20> Print Language: Armenian <TATIANNA Tang - Last Filed: 04/02/21 14:20>
[2021-04-02 14:10] VITALS: BP 159/89; PULSE 63; RESP 16; TEMP 36.1; O2SAT 97
== END 2021-04-02 14:24 | disposition home or self-care (01) ==
PROVIDERS: Emergency Provider Emergency Medicine; PCP Internal Medicine
DX: S71.131A Puncture wound without foreign body, right thigh, initial encounter (principal); W54.0XXA Bitten by dog, initial encounter; Y93.89 Activity, other specified; Y92.414 Local residential or business street as the place of occurrence of the external cause; Y99.9 Unspecified external cause status; Z86.718 Personal history of other venous thrombosis and embolism; Z86.711 Personal history of pulmonary embolism; Z79.01 Long term (current) use of anticoagulants; Z86.16 Personal history of COVID-19; Z20.3 Contact with and (suspected) exposure to rabies
CPT/HCPCS: 85610; 90375; 90471; 90675; 90715; 96372; 99211; 99284

== ENCOUNTER 2021-04-05 08:36 | Outpatient (REF) | payer MEDICARE, MEDICAID, SELFPAY | END 2021-04-05 08:37 | disposition home or self-care (01) | LOC: HO.MDS 08:36 | PROVIDERS: PCP Internal Medicine; Visit Provider Physician Assistant | DX: Z29.14 Encounter for prophylactic rabies immune globulin (principal); S70.371D Other superficial bite of right thigh, subsequent encounter; W54.0XXD Bitten by dog, subsequent encounter; Z20.3 Contact with and (suspected) exposure to rabies | CPT/HCPCS: 85610; 90471; 90675; 99211 ==

== ENCOUNTER 2021-04-09 14:03 | Outpatient (REF) | payer MEDICARE, MEDICAID, SELFPAY | END 2021-04-09 14:04 | disposition home or self-care (01) | LOC: HO.MDS 14:03 | PROVIDERS: PCP Internal Medicine; Visit Provider Physician Assistant | DX: Z29.14 Encounter for prophylactic rabies immune globulin (principal); S70.371D Other superficial bite of right thigh, subsequent encounter; W54.0XXD Bitten by dog, subsequent encounter; Z20.3 Contact with and (suspected) exposure to rabies | CPT/HCPCS: 85610; 90471; 90675; 99211 ==

== ENCOUNTER 2021-04-16 09:55 | Outpatient (REF) | payer MEDICARE, MEDICAID, SELFPAY | END 2021-04-16 09:56 | disposition home or self-care (01) | LOC: HO.MDS 09:55 | PROVIDERS: PCP Internal Medicine; Visit Provider Physician Assistant | DX: Z29.14 Encounter for prophylactic rabies immune globulin (principal); W54.0XXD Bitten by dog, subsequent encounter; S71.131D Puncture wound without foreign body, right thigh, subsequent encounter; Z20.3 Contact with and (suspected) exposure to rabies | CPT/HCPCS: 90471; 90675 ==

== ENCOUNTER → 2021-05-02 12:57 | Outpatient (BNVA) | payer MEDICARE, MEDICAID, SELFPAY | PROVIDERS: PCP Internal Medicine; Visit Provider Urology | DX: N41.9 Inflammatory disease of prostate, unspecified (principal); Z79.01 Long term (current) use of anticoagulants; Z51.81 Encounter for therapeutic drug level monitoring | CPT/HCPCS: 85610; 99202; 99211 ==

== ENCOUNTER → 2021-06-13 12:55 | Outpatient (BNVA) | payer MEDICARE, MEDICAID, SELFPAY | PROVIDERS: PCP Internal Medicine; Visit Provider Urology | DX: N40.1 Benign prostatic hyperplasia with lower urinary tract symptoms (principal); N13.8 Other obstructive and reflux uropathy | CPT/HCPCS: 99212 ==

== ENCOUNTER → 2021-06-14 15:29 | Outpatient (BNVA) | payer MEDICARE, MEDICAID, SELFPAY | PROVIDERS: PCP Internal Medicine; Visit Provider Internal Medicine | DX: I26.99 Other pulmonary embolism without acute cor pulmonale (principal); I82.409 Acute embolism and thrombosis of unspecified deep veins of unspecified lower extremity; Z51.81 Encounter for therapeutic drug level monitoring; Z79.01 Long term (current) use of anticoagulants | CPT/HCPCS: 85610; 99211 ==

== ENCOUNTER → 2021-07-04 15:15 | Outpatient (BNVA) | payer MEDICARE, MEDICAID, SELFPAY | PROVIDERS: PCP Internal Medicine; Visit Provider Internal Medicine | DX: I26.99 Other pulmonary embolism without acute cor pulmonale (principal); I82.409 Acute embolism and thrombosis of unspecified deep veins of unspecified lower extremity; Z51.81 Encounter for therapeutic drug level monitoring; Z79.01 Long term (current) use of anticoagulants | CPT/HCPCS: 85610; 99211 ==

== ENCOUNTER → 2021-08-01 15:28 | Outpatient (BNVA) | payer MEDICARE, MEDICAID, SELFPAY | PROVIDERS: PCP Internal Medicine; Visit Provider Internal Medicine | DX: I26.99 Other pulmonary embolism without acute cor pulmonale (principal); I82.409 Acute embolism and thrombosis of unspecified deep veins of unspecified lower extremity; Z51.81 Encounter for therapeutic drug level monitoring; Z79.01 Long term (current) use of anticoagulants | CPT/HCPCS: 85610; 99211 ==

== ENCOUNTER → 2021-08-15 15:16 | Outpatient (BNVA) | payer MEDICARE, MEDICAID, SELFPAY | PROVIDERS: PCP Internal Medicine; Visit Provider Internal Medicine | DX: I26.99 Other pulmonary embolism without acute cor pulmonale (principal); I82.409 Acute embolism and thrombosis of unspecified deep veins of unspecified lower extremity; Z51.81 Encounter for therapeutic drug level monitoring; Z79.01 Long term (current) use of anticoagulants | CPT/HCPCS: 85610; 99211 ==

== ENCOUNTER → 2021-09-06 15:30 | Outpatient (BNVA) | payer MEDICARE, MEDICAID, SELFPAY | PROVIDERS: PCP Internal Medicine; Visit Provider Internal Medicine | DX: I82.409 Acute embolism and thrombosis of unspecified deep veins of unspecified lower extremity (principal); I26.99 Other pulmonary embolism without acute cor pulmonale; Z51.81 Encounter for therapeutic drug level monitoring; Z79.01 Long term (current) use of anticoagulants | CPT/HCPCS: 85610; 99211 ==

== ENCOUNTER → 2021-09-20 15:20 | Outpatient (BNVA) | payer MEDICARE, MEDICAID, SELFPAY | PROVIDERS: PCP Internal Medicine; Visit Provider Internal Medicine | DX: I26.99 Other pulmonary embolism without acute cor pulmonale (principal); I82.409 Acute embolism and thrombosis of unspecified deep veins of unspecified lower extremity; Z51.81 Encounter for therapeutic drug level monitoring; Z79.01 Long term (current) use of anticoagulants | CPT/HCPCS: 85610; 99211 ==

== ENCOUNTER → 2021-10-04 16:02 | Outpatient (BNVA) | payer MEDICARE, MEDICAID, SELFPAY | PROVIDERS: PCP Internal Medicine; Visit Provider Internal Medicine | DX: I26.99 Other pulmonary embolism without acute cor pulmonale (principal); I82.409 Acute embolism and thrombosis of unspecified deep veins of unspecified lower extremity; Z51.81 Encounter for therapeutic drug level monitoring; Z79.01 Long term (current) use of anticoagulants | CPT/HCPCS: 85610; 99211 ==

== ENCOUNTER → 2021-11-12 14:24 | Outpatient (BNVA) | payer MEDICARE, MEDICAID, SELFPAY | PROVIDERS: PCP Internal Medicine; Visit Provider Internal Medicine | DX: I26.99 Other pulmonary embolism without acute cor pulmonale (principal); I82.409 Acute embolism and thrombosis of unspecified deep veins of unspecified lower extremity; Z51.81 Encounter for therapeutic drug level monitoring; Z79.01 Long term (current) use of anticoagulants | CPT/HCPCS: 85610; 99211 ==

== ENCOUNTER → 2021-12-03 15:49 | Outpatient (BNVA) | payer MEDICARE, MEDICAID, SELFPAY | PROVIDERS: PCP Internal Medicine; Visit Provider Internal Medicine | DX: I26.99 Other pulmonary embolism without acute cor pulmonale (principal); I82.409 Acute embolism and thrombosis of unspecified deep veins of unspecified lower extremity; Z51.81 Encounter for therapeutic drug level monitoring; Z79.01 Long term (current) use of anticoagulants | CPT/HCPCS: 85610; 99211 ==

== ENCOUNTER → 2021-12-17 15:36 | Outpatient (BNVA) | payer MEDICARE, MEDICAID, SELFPAY | PROVIDERS: PCP Internal Medicine; Visit Provider Internal Medicine | DX: I26.99 Other pulmonary embolism without acute cor pulmonale (principal); I82.409 Acute embolism and thrombosis of unspecified deep veins of unspecified lower extremity; Z51.81 Encounter for therapeutic drug level monitoring; Z79.01 Long term (current) use of anticoagulants | CPT/HCPCS: 85610; 99211 ==

== ENCOUNTER → 2022-02-04 15:12 | Outpatient (BNVA) | payer MEDICARE, MEDICAID, SELFPAY | PROVIDERS: PCP Internal Medicine; Visit Provider Internal Medicine | DX: I26.99 Other pulmonary embolism without acute cor pulmonale (principal); I82.409 Acute embolism and thrombosis of unspecified deep veins of unspecified lower extremity; Z51.81 Encounter for therapeutic drug level monitoring; Z79.01 Long term (current) use of anticoagulants | CPT/HCPCS: 85610; 99211 ==

== ENCOUNTER 2022-02-12 08:06 | Outpatient (REF) | payer MEDICARE, MEDICAID, SELFPAY ==
--- NOTE | ~2022-02-12 | US_ITS ---
EXAMINATION: US COMPLETE ABDOMEN WITH LIVER ELASTOGRAPHY CLINICAL INFORMATION: Hepatitis C. liver fibrosis. COMPARISON: Previous abdominal ultrasound most recent 11/26/[address] of the abdomen and pelvis 12/21/2018 TECHNIQUE: Real-time imaging of the abdominal viscera. Noninvasive ultrasound liver fibrosis assessment is performed using [employer] Elast[employer] point quantification shear wave elastography (2D-SWE) with a C5-2 MHz transducer. Multiple elastography samples are obtained. FINDINGS: PANCREAS: Not well visualized due to bowel gas. ABDOMINAL AORTA: Normal in caliber. There is atherosclerotic disease. INFERIOR VENA CAVA: Not well visualized. LIVER: Liver echotexture is increased. The liver is normal in size and contour. No focal lesion or intrahepatic biliary duct dilatation. The right lobe measures 14.4 cm in length. The left lobe measures 8 cm in length. Portal flow is normal/hepatopedal. Shear wave liver elastography median stiffness is 1.5 m/s (reference: normal median stiffness is 1.3 m/s or less). IQR/median stiffness to assess sampling precision is 0.18 (reference: good quality data set is IQR/median stiffness of 0.15 or less). GALLBLADDER: Surgically removed. COMMON BILE DUCT: Normal in caliber measuring 0.3 cm in diameter. RIGHT KIDNEY: There is a 1.5 cm cyst in the midpole. No hydronephrosis. No renal calculi or focal parenchymal lesions. The kidney measures 12 cm in maximum dimension. LEFT KIDNEY: There is a 5 mm stone in the lower pole. There is an 8 x 5 x 8 mm cyst in the lower pole. No hydronephrosis. The kidney measures 12.6 cm in maximum dimension. SPLEEN: Normal. The spleen measures 11 cm in maximum dimension. FREE FLUID: None. US/US abdomen comp w elastography IMPRESSION: 1.Echogenic liver. Limited visualization of the pancreas. Bilateral renal cysts. Left renal stone. 2. Liver elastography: Slightly limited due to sampling error. In the absence of other known clinical signs, rules out compensated advanced chronic liver disease. REFERENCE: Society of Radiologists in Ultrasound Liver Stiffness Thresholds (2020): LIVER STIFFNESS THRESHOLDS: *Liver Stiffness equal or less than 1.3 m/s: High probability of being normal. *Liver Stiffness less than 1.7 m/s: In the absence of other known clinical signs, rules out compensated advanced chronic liver disease. *Liver Stiffness 1.7-2.1 m/s: Suggestive of compensated advanced chronic liver disease but need further test for confirmation. *Liver Stiffness over 2.1 m/s: Rules in compensated advanced chronic liver disease. *Liver Stiffness over 2.4 m/s: Suggestive of clinically significant portal hypertension. QUALITY OF DATA SET: *IQR/Median value equal or less than 0.15 implies a quality data set. *IQR/Median value over 0.15 implies a poor quality data set. SIGNIFICANT CHANGE FROM PRIOR EXAM: Significant change if liver stiffness measurement is 10% or greater from prior exam. OTHER CONSIDERATIONS: The stage of liver fibrosis may be overestimated in the setting of acute hepatitis, liver inflammation, elevated liver function tests, hepatic vascular congestion, obstructive cholestasis, non-fasting state, and infiltrative diseases such as amyloidosis and lymphoma. In some patients with NAFLD, the liver stiffness thresholds for compensated advanced chronic liver disease may be lower. In causes other than viral hepatitis and NAFLD, liver stiffness thresholds are not well established.
== END 2022-02-12 08:07 | disposition home or self-care (01) ==
LOC: HO.US 08:06
PROVIDERS: PCP Internal Medicine; Visit Provider Internal Medicine
DX: K74.00 Hepatic fibrosis, unspecified (principal); Z86.19 Personal history of other infectious and parasitic diseases
CPT/HCPCS: 76705; 76981

== ENCOUNTER → 2022-02-14 09:44 | Outpatient (BNVA) | payer MEDICARE, MEDICAID, SELFPAY | PROVIDERS: PCP Internal Medicine; Visit Provider Urology | DX: N41.9 Inflammatory disease of prostate, unspecified (principal); N40.1 Benign prostatic hyperplasia with lower urinary tract symptoms; N13.8 Other obstructive and reflux uropathy | CPT/HCPCS: 99212 ==

== ENCOUNTER 2022-02-17 08:09 | Day surgery (SDC) | payer MEDICARE, MEDICAID, SELFPAY ==
[2022-02-11 15:05] VITALS: BMI 29.5
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
--- NOTE | 2022-02-17 08:17 | PC.NURSE ---
callled for lab and called for hourly sign language interpreter
[2022-02-17 08:30] VITALS: BP 134/87; PULSE 62; RESP 16; TEMP 36.2; O2SAT 98
--- NOTE | 2022-02-17 08:34 | PC.NURSE ---
recalled for lab
[2022-02-17] MEDS: Lactated Ringers 1,000 ML 100 ML IVCONT (08:40)
[2022-02-17 08:58] LABS: INTERNATIONAL NORM RATIO 1.2 (0.9-1.1); Prothrombin Time 14.2 SEC (9.9-13.0)
[2022-02-17 10:22] VITALS: BP 90/58; PULSE 69; RESP 14; TEMP 36.2; O2SAT 96
--- NOTE | 2022-02-17 10:24 | PM.OP ---
Brief Operative Note Date of Service: 02/17/22 Pre-op diagnosis: Screening Post-op diagnosis: other (Diverticulosis) Procedure: Colonoscopy to the cecum Surgeon: Joshua Valdivia Anesthesia: MAC Was an Special Delivery Worker used for this Procedure?: No Estimated blood loss (mL): 0 Pathology: none sent Condition: stable Disposition: PACU
[2022-02-17 10:37] VITALS: BP 96/55; PULSE 69; RESP 18; TEMP 36.2; O2SAT 95
--- NOTE | 2022-02-17 11:09 | OP_ITS ---
SURGEON: Joshua Valdivia MD INDICATIONS: The patient presents for evaluation of personal history of tubular adenoma of the colon and colorectal cancer screening. Full consent was obtained from him for this, including risks of bleeding and perforation. PREOPERATIVE DIAGNOSIS: POSTOPERATIVE DIAGNOSIS: PROCEDURE PERFORMED: Colonoscopy to cecum. ESTIMATED BLOOD LOSS: COMPLICATIONS: ANESTHESIA: Monitored anesthesia care. ASSISTANTS: SPECIMENS: PREOPERATIVE DIAGNOSES: Colorectal cancer screening and personal history of tubular adenoma of the colon. POSTOPERATIVE DIAGNOSES: Colorectal cancer screening and personal history of tubular adenoma of the colon, diverticulosis and internal hemorrhoids. DESCRIPTION OF PROCEDURE: The patient was placed in the left lateral decubitus position. The digital rectal exam revealed no abnormalities. The Olympus video pediatric colonoscope was entered into the rectum and advanced easily to the cecum. Once in the cecum, I did identify normal-appearing cecal pouch with appendiceal orifice and a normal-appearing ileocecal valve. There was transillumination of light deep in the right lower quadrant. The entire cecum and ileocecal valve appeared normal. The scope was slowly withdrawn assessing all mucosal surfaces carefully. Preparation was excellent. I did not visualize any sign of polyps, colitis, nor angiodysplasia. There was a mild amount of sigmoid diverticulosis. In the rectum, scope was retroflexed visualizing internal hemorrhoids, but no other pathology. The rectal mucosa appeared normal. The scope was straightened and withdrawn from the patient. He tolerated the procedure well and was returned to the recovery area in stable condition. IMPRESSION: 1. Diverticulosis. 2. Internal hemorrhoids. PLAN: I would recommend a repeat colonoscopy in 5 years for further screening. He was advised to see me in 1 year for followup of his underlying liver disease in relation to previous hepatitis C. He was advised to resume his Coumadin and Lovenox today and have that adjusted by his primary care physician or the [facility]. MD DAISY López/MATTY / [id number]
== END 2022-02-17 11:04 | disposition home or self-care (01) ==
PROVIDERS: PCP Internal Medicine; Visit Provider Internal Medicine
PROC: 0DJD8ZZ Inspection of Lower Intestinal Tract, Via Natural or Artificial Opening Endoscopic (ICD-10-PCS; CPT 45378; principal; 2022-02-17 09:10)
DX: Z12.11 Encounter for screening for malignant neoplasm of colon (principal); Z86.010 Personal history of colon polyps; K57.30 Diverticulosis of large intestine without perforation or abscess without bleeding; K64.8 Other hemorrhoids; K74.00 Hepatic fibrosis, unspecified; I10 Essential (primary) hypertension; E78.5 Hyperlipidemia, unspecified; J45.909 Unspecified asthma, uncomplicated; Z86.19 Personal history of other infectious and parasitic diseases; Z86.718 Personal history of other venous thrombosis and embolism; Z86.711 Personal history of pulmonary embolism; Z95.828 Presence of other vascular implants and grafts; Z79.01 Long term (current) use of anticoagulants; Z79.51 Long term (current) use of inhaled steroids; Z79.899 Other long term (current) drug therapy
CPT/HCPCS: G0105; 36415; 85610; Q3014

== ENCOUNTER → 2022-02-20 15:16 | Outpatient (BNVA) | payer MEDICARE, MEDICAID, SELFPAY | PROVIDERS: PCP Internal Medicine; Visit Provider Internal Medicine | DX: I26.99 Other pulmonary embolism without acute cor pulmonale (principal); Z86.718 Personal history of other venous thrombosis and embolism; Z51.81 Encounter for therapeutic drug level monitoring; Z79.01 Long term (current) use of anticoagulants | CPT/HCPCS: 85610; 99211 ==

== ENCOUNTER → 2022-02-26 10:51 | Outpatient (BNVA) | payer MEDICARE, MEDICAID, SELFPAY | PROVIDERS: PCP Internal Medicine; Visit Provider Internal Medicine | DX: I26.99 Other pulmonary embolism without acute cor pulmonale (principal); I82.409 Acute embolism and thrombosis of unspecified deep veins of unspecified lower extremity; Z79.01 Long term (current) use of anticoagulants; Z51.81 Encounter for therapeutic drug level monitoring | CPT/HCPCS: 85610; 99211 ==

== ENCOUNTER → 2022-03-25 13:58 | Outpatient (BNVA) | payer MEDICARE, MEDICAID, SELFPAY | PROVIDERS: PCP Internal Medicine; Visit Provider Internal Medicine | DX: I26.99 Other pulmonary embolism without acute cor pulmonale (principal); I82.409 Acute embolism and thrombosis of unspecified deep veins of unspecified lower extremity; Z79.01 Long term (current) use of anticoagulants; Z51.81 Encounter for therapeutic drug level monitoring | CPT/HCPCS: 85610; 99211 ==

== ENCOUNTER → 2022-04-07 15:14 | Outpatient (BNVA) | payer MEDICARE, MEDICAID, SELFPAY | PROVIDERS: PCP Internal Medicine; Visit Provider Internal Medicine | DX: I26.99 Other pulmonary embolism without acute cor pulmonale (principal); I82.409 Acute embolism and thrombosis of unspecified deep veins of unspecified lower extremity; Z79.01 Long term (current) use of anticoagulants; Z51.81 Encounter for therapeutic drug level monitoring | CPT/HCPCS: 85610; 99211 ==

== ENCOUNTER → 2022-04-23 15:17 | Outpatient (BNVA) | payer MEDICARE, MEDICAID, SELFPAY | PROVIDERS: PCP Internal Medicine; Visit Provider Internal Medicine | DX: I26.99 Other pulmonary embolism without acute cor pulmonale (principal); I82.409 Acute embolism and thrombosis of unspecified deep veins of unspecified lower extremity; Z79.01 Long term (current) use of anticoagulants; Z51.81 Encounter for therapeutic drug level monitoring | CPT/HCPCS: 85610; 99211 ==

== ENCOUNTER → 2022-05-07 15:46 | Outpatient (BNVA) | payer MEDICARE, MEDICAID, SELFPAY | PROVIDERS: PCP Internal Medicine; Visit Provider Internal Medicine | DX: I26.99 Other pulmonary embolism without acute cor pulmonale (principal); I82.409 Acute embolism and thrombosis of unspecified deep veins of unspecified lower extremity; Z51.81 Encounter for therapeutic drug level monitoring; Z79.01 Long term (current) use of anticoagulants | CPT/HCPCS: 85610; 99211 ==

== ENCOUNTER → 2022-05-14 15:49 | Outpatient (BNVA) | payer MEDICARE, MEDICAID, SELFPAY | PROVIDERS: PCP Internal Medicine; Visit Provider Internal Medicine | DX: I26.99 Other pulmonary embolism without acute cor pulmonale (principal); I82.409 Acute embolism and thrombosis of unspecified deep veins of unspecified lower extremity; Z79.01 Long term (current) use of anticoagulants; Z51.81 Encounter for therapeutic drug level monitoring | CPT/HCPCS: 85610; 99211 ==

== ENCOUNTER → 2022-07-03 09:21 | Outpatient (BNVA) | payer MEDICARE, MEDICAID, SELFPAY | PROVIDERS: PCP Internal Medicine; Visit Provider Internal Medicine | DX: I26.99 Other pulmonary embolism without acute cor pulmonale (principal); I82.409 Acute embolism and thrombosis of unspecified deep veins of unspecified lower extremity; Z79.01 Long term (current) use of anticoagulants; Z51.81 Encounter for therapeutic drug level monitoring | CPT/HCPCS: 85610; 99211 ==

== ENCOUNTER → 2022-07-18 09:26 | Outpatient (BNVA) | payer MEDICARE, MEDICAID, SELFPAY | PROVIDERS: PCP Internal Medicine; Visit Provider Internal Medicine | DX: I26.99 Other pulmonary embolism without acute cor pulmonale (principal); I82.409 Acute embolism and thrombosis of unspecified deep veins of unspecified lower extremity; Z79.01 Long term (current) use of anticoagulants; Z51.81 Encounter for therapeutic drug level monitoring | CPT/HCPCS: 85610; 99211 ==

== ENCOUNTER → 2022-07-29 15:14 | Outpatient (BNVA) | payer MEDICARE, MEDICAID, SELFPAY | PROVIDERS: PCP Internal Medicine; Visit Provider Internal Medicine | DX: I26.99 Other pulmonary embolism without acute cor pulmonale (principal); I82.409 Acute embolism and thrombosis of unspecified deep veins of unspecified lower extremity; Z79.01 Long term (current) use of anticoagulants; Z51.81 Encounter for therapeutic drug level monitoring | CPT/HCPCS: 85610; 99211 ==

== ENCOUNTER 2022-08-06 14:00 | Outpatient (RCR) | payer MEDICARE, MEDICAID, SELFPAY ==
[2022-07-09 09:07] VITALS: BP 146/87; PULSE 73; O2SAT 97
== END 2022-10-15 15:15 | disposition home or self-care (01) ==
LOC: HO.PT 14:00
PROVIDERS: PCP Internal Medicine; Visit Provider Internal Medicine
DX: M54.50 Low back pain, unspecified (principal)
CPT/HCPCS: 97110; 97140; 97161; 97530

== ENCOUNTER → 2022-08-12 15:28 | Outpatient (BNVA) | payer MEDICARE, MEDICAID, SELFPAY | PROVIDERS: PCP Internal Medicine; Visit Provider Internal Medicine | DX: I26.99 Other pulmonary embolism without acute cor pulmonale (principal); I82.409 Acute embolism and thrombosis of unspecified deep veins of unspecified lower extremity; Z79.01 Long term (current) use of anticoagulants; Z51.81 Encounter for therapeutic drug level monitoring | CPT/HCPCS: 85610; 99211 ==

== ENCOUNTER → 2022-09-02 15:21 | Outpatient (BNVA) | payer MEDICARE, MEDICAID, SELFPAY | PROVIDERS: PCP Internal Medicine; Visit Provider Internal Medicine | DX: I26.99 Other pulmonary embolism without acute cor pulmonale (principal); I82.409 Acute embolism and thrombosis of unspecified deep veins of unspecified lower extremity; Z79.01 Long term (current) use of anticoagulants; Z51.81 Encounter for therapeutic drug level monitoring | CPT/HCPCS: 85610; 99211 ==

== ENCOUNTER → 2022-09-08 08:50 | Outpatient (BNVA) | payer MEDICARE, MEDICAID, SELFPAY | PROVIDERS: PCP Internal Medicine; Visit Provider Internal Medicine | DX: I26.99 Other pulmonary embolism without acute cor pulmonale (principal); I82.409 Acute embolism and thrombosis of unspecified deep veins of unspecified lower extremity; Z79.01 Long term (current) use of anticoagulants; Z51.81 Encounter for therapeutic drug level monitoring | CPT/HCPCS: 85610; 99211 ==

== ENCOUNTER → 2022-09-15 08:08 | Outpatient (BNVA) | payer MEDICARE, MEDICAID, SELFPAY | PROVIDERS: PCP Internal Medicine; Visit Provider Internal Medicine | DX: I26.99 Other pulmonary embolism without acute cor pulmonale (principal); I82.409 Acute embolism and thrombosis of unspecified deep veins of unspecified lower extremity; Z79.01 Long term (current) use of anticoagulants; Z51.81 Encounter for therapeutic drug level monitoring | CPT/HCPCS: 85610; 99211 ==

== ENCOUNTER 2022-10-02 15:41 | Emergency (ER) | payer MEDICARE, MEDICAID, SELFPAY ==
[2022-10-02 16:12] VITALS: BP 136/93; PULSE 81; RESP 18; TEMP 36.6; O2SAT 97; BMI 29.1
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
--- NOTE | 2022-10-02 16:15 | ECG_ITS ---
Test Reason : epigastric pain Blood Pressure : / mmHG Vent. Rate : 061 BPM Atrial Rate : 061 BPM P-R Int : 170 ms QRS Dur : 096 ms QT Int : 420 ms P-R-T Axes : 034 -10 020 degrees QTc Int : 422 ms Normal sinus rhythm Minimal voltage criteria for LVH, may be normal variant ( R in aVL ) Borderline ECG When compared with ECG of 06-DEC-2020 03:15, No significant change was found Referred By: Polly Mills Electronically Signed By:RADHA LAI MD
[2022-10-02 18:20] LABS: MANUAL DIFF FLAG NO
[2022-10-02 18:27] LABS: INTERNATIONAL NORM RATIO 4.8 (0.9-1.1); Prothrombin Time 58.5 SEC (10.0-13.1)
[2022-10-02 18:28] LABS: Basophils Percent Auto 0.3 % (0-2); Eosinophils Absolute Auto 0.3 X10*3/uL (0.0-0.4); Eosinophils Percent Auto 4.3 % (0-4); Hematocrit 40.6 % (42.0-52.0); Hemoglobin 13.7 g/dl (14.0-18.0); Imm Gran Abs Auto 0.02 X10*3/uL (0.00-0.03); Imm Gran Pct Auto 0.3 % (0.0-0.4); Lymphocytes Absolute Auto 2.7 X10*3/uL (1.2-4.9); Lymphocytes Percent Auto 45.8 % (20-40); Mean Corpuscular HGB Conc 33.7 g/dl (31.0-36.0); Mean Corpuscular Hemoglobin 30.2 pg (27.0-33.0); Mean Corpuscular Volume 89.6 fL (80.0-98.0); Mean Platelet Volume 9.9 fL (9.4-12.4); Monocytes Absolute Auto 0.6 X10*3/uL (0.1-1.2); Monocytes Percent Auto 9.7 % (2-11); Neutrophils Absolute Auto 2.3 x10*3/uL (2.0-8.3); Neutrophils Percent Auto 39.6 % (45-73); Platelet Count 206 X10*3/uL (160-400); Red Blood Count 4.53 X10*6/uL (4.60-5.80); Red Cell Distribution Width 13.6 % (11.0-16.0); White Blood Count 5.8 X10*3/uL (4.8-10.8)
[2022-10-02 18:45] LABS: Alanine Aminotransferase 34 U/L (0-40); Albumin Level 4.4 g/dL (3.5-5.0); Alkaline Phosphatase 53 U/L (39-117); Anion Gap 11 (12-20); Aspartate Amino Transferase 32 U/L (5-37); Bilirubin Direct 0.2 mg/dL (0.0-0.5); Bilirubin Total 0.5 mg/dL (0.0-1.0); Blood Urea Nitrogen 15 mg/dL (9-16); Carbon Dioxide 28 mmol/L (22-29); Chloride 108 mmol/L (96-108); Creatinine Clr Calc Pharmacy 86.7; Estimated Glomerular Filt Rate > 60; Glucose Random 97 mg/dL (60-115); Lipase 76 U/L (8-78); Magnesium 2.1 mg/dL (1.6-2.6); Potassium 4.1 mmol/L (3.3-5.1); Sodium 143 mmol/L (135-145); Total Protein 7.3 g/dL (6.5-8.0)
[2022-10-02 20:14] VITALS: BP 145/85; PULSE 60; RESP 18; TEMP 36.6; O2SAT 98
--- NOTE | 2022-10-02 20:51 | PC.NURSE ---
This nurse the patient ambulate to the restroom for a urine sample. Ambulates safely, steady gait. Patient was able to to repeat instructions given on how to do a clean catch urine sample.
--- NOTE | 2022-10-02 21:05 | PC.NURSE ---
Addendum entered by Clementine Heller 10/02/22 21:10: Patient states RUQ pain has been going on for quite some time. Patient states initially he was hving issues with his gallbladder and stones, which resulted in a cholecystectomy. The pain never went away after surgery (about three yrs). Patient states he saw PCP yesterday because the pain has intensified. Per patient, PCP advised him to go to the ED due to the increased pain and elevated labs. Patient denies n/v/d, headache, nor dizziness. Patient c/o RUQ pain that worsens with movement. Original Note: Patient states RUQ pain has been going on for quite some time. Patient states initially he was hving issues with his gallbladder and stones, which resulted in a cholecystectomy. The pain never went away after surgery (about three yrs). Patient states he saw PCP yesterday because the pain has intensified. Per patient, PCP advised him to go to the ED due to the increased pain and elevated labs. Patient denies n/v/d, headache, nor dizziness. Patient c/o RUQ pain.
[2022-10-02 21:23] LABS: Appearance Urine Clear; Color Urine Yellow; Glucose Urine UA Negative (Negative); Leukocyte Esterase Urine Negative (Negative); Nitrite Urine Negative (Negative); PH 5.5 (5.0-9.0); Specific Gravity - Urine 1.015 (1.005-1.025); UMIC TRIGGER UACC YES; Urine Blood Small (1+) (Negative); Urine Ketones Negative (Negative); Urine Protein Negative (Neg-Trace)
[2022-10-02 21:36] LABS: Bacteria Urine None Seen (None Seen); Hyaline Casts Urine 0-2 /LPF (0-2); RBC Urine 0-2 /HPF (0-2); Squamous Epithelial Cell Urine 0-2 /HPF (0-2); WBC Urine 0-5 /HPF (0-5)
== END 2022-10-02 22:08 | disposition home or self-care (01) ==
PROVIDERS: Physician Assistant; Emergency Provider Internal Medicine
DX: R10.11 Right upper quadrant pain (principal); R07.89 Other chest pain; Z79.01 Long term (current) use of anticoagulants; Z79.899 Other long term (current) drug therapy
CPT/HCPCS: 36415; 80048; 80076; 81001; 83690; 83735; 85025; 85610; 93005; 99283; 99285

== ENCOUNTER → 2022-10-15 14:03 | Outpatient (BNVA) | payer MEDICARE, MEDICAID, SELFPAY | PROVIDERS: PCP Internal Medicine; Visit Provider Internal Medicine | DX: I26.99 Other pulmonary embolism without acute cor pulmonale (principal); I82.409 Acute embolism and thrombosis of unspecified deep veins of unspecified lower extremity; Z79.01 Long term (current) use of anticoagulants; Z51.81 Encounter for therapeutic drug level monitoring | CPT/HCPCS: 85610; 99211 ==

== ENCOUNTER → 2022-10-29 14:55 | Outpatient (BNVA) | payer MEDICARE, MEDICAID, SELFPAY | PROVIDERS: PCP Internal Medicine; Visit Provider Internal Medicine | DX: I26.99 Other pulmonary embolism without acute cor pulmonale (principal); I82.409 Acute embolism and thrombosis of unspecified deep veins of unspecified lower extremity; Z79.01 Long term (current) use of anticoagulants; Z51.81 Encounter for therapeutic drug level monitoring | CPT/HCPCS: 85610; 99211 ==

== ENCOUNTER → 2022-11-05 15:28 | Outpatient (BNVA) | payer MEDICARE, MEDICAID, SELFPAY | PROVIDERS: PCP Internal Medicine; Visit Provider Internal Medicine | DX: I26.99 Other pulmonary embolism without acute cor pulmonale (principal); I82.409 Acute embolism and thrombosis of unspecified deep veins of unspecified lower extremity; Z79.01 Long term (current) use of anticoagulants; Z51.81 Encounter for therapeutic drug level monitoring | CPT/HCPCS: 85610; 99211 ==

== ENCOUNTER 2022-11-24 07:48 | Emergency (ER) | payer MEDICARE, MEDICAID, SELFPAY ==
[2022-11-24 07:56] VITALS: BP 143/101; PULSE 92; RESP 18; TEMP 36.6; O2SAT 95; BMI 28.5
--- NOTE | 2022-11-24 08:53 | PC.NURSE ---
patient a&ox3, c/o 08/25 rt lower back pain, pt denies injury to area, awaiting to see provider, will continue to monitor
[2022-11-24 08:55] VITALS: BP 141/89; PULSE 93; RESP 18; TEMP 36.8; O2SAT 96
[2022-11-24] MEDS: Cyclobenzaprine HCl 5 MG TABLET PO (09:50)
[2022-11-24] MEDS: predniSONE 20 MG TABLET 60 MG PO (09:50)
[2022-11-24] MEDS: traMADoL HCL 50 MG TABLET PO (09:50)
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
--- NOTE | 2022-11-24 09:52 | PC.NURSE ---
patient medicated for 10/10 lower back pain
--- NOTE | 2022-11-24 10:05 | PC.NURSE ---
[place] [facility] [place] as of yet.
== END 2022-11-24 11:34 | disposition home or self-care (01) ==
PROVIDERS: Emergency Provider Student in an Organized Health Care Education/Training Program; PCP Internal Medicine
DX: G89.29 Other chronic pain (principal); M54.50 Low back pain, unspecified; I10 Essential (primary) hypertension; E78.5 Hyperlipidemia, unspecified; Z86.711 Personal history of pulmonary embolism; Z86.718 Personal history of other venous thrombosis and embolism; Z79.01 Long term (current) use of anticoagulants; Z79.02 Long term (current) use of antithrombotics/antiplatelets; Z79.899 Other long term (current) drug therapy
CPT/HCPCS: 99283; 99285

== ENCOUNTER 2022-11-26 11:08 | Emergency (ER) | payer MEDICARE, SELFPAY ==
[2022-11-26 11:22] VITALS: BP 146/95; PULSE 70; RESP 18; TEMP 36.1; O2SAT 96; BMI 29.1
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
--- NOTE | 2022-11-26 13:00 | PC.NURSE ---
patient primary language Congolese , assessed with use of med spa manager . a/ox4 . logan . heart rate regular at 72 beat per minute breathing even and unlabored . lungs clear throughout . skin pink warm and dry . patient c/o back pain that radiates down his leg . patient aware of plan of care .
[2022-11-26] MEDS: oxyCODONE HCl Immed Release 5 MG TABLET 10 MG PO (14:23)
[2022-11-26 14:25] VITALS: BP 145/95; PULSE 72; RESP 18; TEMP 36.1; O2SAT 97
--- NOTE | 2022-11-26 14:28 | PC.NURSE ---
A/Ox4 .VSS. Went over discharge instructions as ordered by provider . patient to follow up with primary care . patient medicated with oxycodone prior to discharge , patient has transportation by son home . no questions at this time .
== END 2022-11-26 14:32 | disposition home or self-care (01) ==
PROVIDERS: Emergency Provider Student in an Organized Health Care Education/Training Program; PCP Internal Medicine
DX: M54.50 Low back pain, unspecified (principal); Z76.0 Encounter for issue of repeat prescription; Z79.899 Other long term (current) drug therapy
CPT/HCPCS: 85610; 99211; 99283; 99284

== ENCOUNTER → 2022-12-03 14:45 | Outpatient (BNVA) | payer OTHER, SELFPAY | PROVIDERS: PCP Internal Medicine; Visit Provider Internal Medicine | DX: M46.1 Sacroiliitis, not elsewhere classified (principal); M53.3 Sacrococcygeal disorders, not elsewhere classified; G58.8 Other specified mononeuropathies; G89.29 Other chronic pain; I26.99 Other pulmonary embolism without acute cor pulmonale; I82.409 Acute embolism and thrombosis of unspecified deep veins of unspecified lower extremity; Z79.01 Long term (current) use of anticoagulants; Z51.81 Encounter for therapeutic drug level monitoring | CPT/HCPCS: 85610; 99202; 99211 ==

== ENCOUNTER 2022-12-04 09:29 | Outpatient (REF) | payer OTHER, SELFPAY ==
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
[2022-12-04] MEDS: iohexoL 350 MG/ML 100 ML INFUS..BTL 65 ML IV (10:13)
[2022-12-04 10:17] LABS: MANUAL DIFF FLAG NO
[2022-12-04 10:33] LABS: Basophils Percent Auto 0.4 % (0-2); Eosinophils Percent Auto 3.9 % (0-4); Hematocrit 44.5 % (42.0-52.0); Imm Gran Pct Auto 0.4 % (0.0-0.4); Lymphocytes Percent Auto 52.2 % (20-40); Mean Corpuscular HGB Conc 33.7 g/dl (31.0-36.0); Mean Corpuscular Hemoglobin 30.4 pg (27.0-33.0); Mean Corpuscular Volume 90.3 fL (80.0-98.0); Neutrophils Percent Auto 34.1 % (45-73); Platelet Count 218 X10*3/uL (160-400); Red Blood Count 4.93 X10*6/uL (4.60-5.80); Red Cell Distribution Width 13.4 % (11.0-16.0); White Blood Count 6.9 X10*3/uL (4.8-10.8)
[2022-12-04 10:34] LABS: Eosinophils Absolute Auto 0.3 X10*3/uL (0.0-0.4); Imm Gran Abs Auto 0.03 X10*3/uL (0.00-0.03); Lymphocytes Absolute Auto 3.6 X10*3/uL (1.2-4.9); Monocytes Absolute Auto 0.6 X10*3/uL (0.1-1.2); Neutrophils Absolute Auto 2.3 x10*3/uL (2.0-8.3)
[2022-12-04 11:10] LABS: Alanine Aminotransferase 58 U/L (0-40); Albumin Level 4.2 g/dL (3.5-5.0); Alkaline Phosphatase 63 U/L (39-117); Aspartate Amino Transferase 35 U/L (5-37); Bilirubin Direct 0.3 mg/dL (0.0-0.5); Total Protein 7.2 g/dL (6.5-8.0)
[2022-12-04 16:07] LABS: Creatinine POC 0.9 mg/dL (0.5-1.4); GFR POC > 60
[2022-12-05 13:48] LABS: Alpha Fetoprotein 2.5 ng/mL (<6.1)
[2022-12-10 15:04] LABS: FIB-ALT 53 U/L (9-46); FIB-Alpha-2-Macroglobulin 275 mg/dL (106-279); FIB-Apolipoprotein A1 171 mg/dL (94-176); FIB-GGT 64 U/L (3-70); FIB-Haptoglobin 120 mg/dL (43-212); FIB-Total Bilirubin 0.8 mg/dL (0.2-1.2); Liver Fibrosis Score 0.58; Liver Fibrosis Stage F2; Nec Inflam Act Grade A1-A2; Nec Inflam Act Score 0.41
== END 2022-12-04 09:30 | disposition home or self-care (01) ==
LOC: HO.CT 09:29
PROVIDERS: Absent Provider Internal Medicine; PCP Internal Medicine; Visit Provider Internal Medicine
DX: R10.11 Right upper quadrant pain (principal); K74.00 Hepatic fibrosis, unspecified; Z86.19 Personal history of other infectious and parasitic diseases; R07.81 Pleurodynia; R93.89 Abnormal findings on diagnostic imaging of other specified body structures
CPT/HCPCS: 36415; 71260; 80076; 81596; 82105; 82565; 85025; 85610; 99211; Q9967

== ENCOUNTER → 2022-12-11 14:27 | Outpatient (BNVA) | payer OTHER, SELFPAY | PROVIDERS: PCP Internal Medicine; Visit Provider Internal Medicine | DX: I26.99 Other pulmonary embolism without acute cor pulmonale (principal); I82.409 Acute embolism and thrombosis of unspecified deep veins of unspecified lower extremity; Z79.01 Long term (current) use of anticoagulants; Z51.81 Encounter for therapeutic drug level monitoring | CPT/HCPCS: 85610; 99211 ==

== ENCOUNTER → 2022-12-18 14:27 | Outpatient (BNVA) | payer OTHER, SELFPAY | PROVIDERS: PCP Internal Medicine; Visit Provider Internal Medicine | DX: I26.99 Other pulmonary embolism without acute cor pulmonale (principal); I82.409 Acute embolism and thrombosis of unspecified deep veins of unspecified lower extremity; Z79.01 Long term (current) use of anticoagulants; Z51.81 Encounter for therapeutic drug level monitoring | CPT/HCPCS: 85610; 99211 ==

== ENCOUNTER 2022-12-23 07:52 | Outpatient (REF) | payer OTHER, SELFPAY ==
--- NOTE | ~2022-12-23 | US_ITS ---
EXAMINATION: US COMPLETE ABDOMEN WITH LIVER ELASTOGRAPHY CLINICAL INFORMATION: History of hepatitis. COMPARISON: Ultrasound abdomen 02/12/2022. TECHNIQUE: Real-time imaging of the abdominal viscera. Noninvasive ultrasound liver fibrosis assessment is performed using [place] Elast[employer] point quantification shear wave elastography (2D-SWE) with a C5-2 MHz transducer. Multiple elastography samples are obtained. FINDINGS: PANCREAS: The visualized pancreatic head and body are normal in appearance. The remainder of the pancreas is obscured from visualization by the overlying bowel gas. ABDOMINAL AORTA: The proximal, middle, and distal aortic segments are normal in caliber. INFERIOR VENA CAVA: Visualized portions are normal. LIVER: The liver demonstrates normal size, contour and increased echogenicity. No focal lesion or intrahepatic biliary duct dilatation. The right lobe measures 17.8 cm in length. The left lobe measures 9.7 cm in length. Portal flow is hepatopedal. Shear wave liver elastography median stiffness is 1.64 m/s (reference: normal median stiffness is 1.3 m/s or less). IQR/median stiffness to assess sampling precision is 0.16 (reference: good quality data set is IQR/median stiffness of 0.15 or less). GALLBLADDER: Normal. The gallbladder is physiologically distended without evidence of stones, sludge, polyps, wall thickening or pericholecystic fluid. COMMON BILE DUCT: Normal in caliber measuring 0.36 cm in diameter. RIGHT KIDNEY: There is anechoic cyst in the upper pole measuring 1.7 x 2.1 x 1.9 cm. Same cyst previously measured 1.5 cm. No hydronephrosis. No renal calculi or focal parenchymal lesions. The kidney measures 12.6 cm in maximum dimension. LEFT KIDNEY: There are anechoic cysts in the lower pole measuring 0.6 x 0.4 x 0.4 cm and 1.1 x 0.7 x 1.0 cm). No hydronephrosis. No renal calculi or focal parenchymal lesions. The kidney measures 13.7 cm in maximum dimension. SPLEEN: Normal. The spleen measures 11.2 cm in maximum dimension. FREE FLUID: None. US/US abdomen comp w elastography IMPRESSION: There are bilateral renal cysts without echogenic stones or hydronephrosis. Mild hepatic steatosis. Liver elastography: Median liver stiffness measures 1.64 m/s corresponding to cACLD (ruled out). REFERENCE: Society of Radiologists in Ultrasound Liver Stiffness Thresholds (2020): LIVER STIFFNESS THRESHOLDS: *Liver Stiffness equal or less than 1.3 m/s: High probability of being normal. *Liver Stiffness less than 1.7 m/s: In the absence of other known clinical signs, rules out compensated advanced chronic liver disease. *Liver Stiffness 1.7-2.1 m/s: Suggestive of compensated advanced chronic liver disease but need further test for confirmation. *Liver Stiffness over 2.1 m/s: Rules in compensated advanced chronic liver disease. *Liver Stiffness over 2.4 m/s: Suggestive of clinically significant portal hypertension. QUALITY OF DATA SET: *IQR/Median value equal or less than 0.15 implies a quality data set. *IQR/Median value over 0.15 implies a poor quality data set. SIGNIFICANT CHANGE FROM PRIOR EXAM: Significant change if liver stiffness measurement is 10% or greater from prior exam. OTHER CONSIDERATIONS: The stage of liver fibrosis may be overestimated in the setting of acute hepatitis, liver inflammation, elevated liver function tests, hepatic vascular congestion, obstructive cholestasis, non-fasting state, and infiltrative diseases such as amyloidosis and lymphoma. In some patients with NAFLD, the liver stiffness thresholds for compensated advanced chronic liver disease may be lower. In causes other than viral hepatitis and NAFLD, liver stiffness thresholds are not well established.
== END 2022-12-23 07:53 | disposition home or self-care (01) ==
LOC: HO.US 07:52
PROVIDERS: PCP Internal Medicine; Visit Provider Internal Medicine
DX: K74.00 Hepatic fibrosis, unspecified (principal); R10.11 Right upper quadrant pain; Z86.19 Personal history of other infectious and parasitic diseases
CPT/HCPCS: 76705; 76981

== ENCOUNTER → 2023-01-01 15:01 | Outpatient (BNVA) | payer OTHER, SELFPAY | PROVIDERS: PCP Internal Medicine; Visit Provider Internal Medicine | DX: I26.99 Other pulmonary embolism without acute cor pulmonale (principal); Z79.01 Long term (current) use of anticoagulants; Z51.81 Encounter for therapeutic drug level monitoring | CPT/HCPCS: 85610; 99211 ==

== ENCOUNTER → 2023-01-09 15:24 | Outpatient (BNVA) | payer OTHER, SELFPAY | PROVIDERS: PCP Internal Medicine; Visit Provider Internal Medicine | DX: I26.99 Other pulmonary embolism without acute cor pulmonale (principal); I82.409 Acute embolism and thrombosis of unspecified deep veins of unspecified lower extremity; Z79.01 Long term (current) use of anticoagulants; Z51.81 Encounter for therapeutic drug level monitoring | CPT/HCPCS: 85610; 99211 ==

== ENCOUNTER 2023-01-13 06:01 | Outpatient (REF) | payer OTHER, SELFPAY ==
--- NOTE | ~2023-01-13 | FL_ITS ---
EXAMINATION: XR FLUOROSCOPY WITH IMAGES CLINICAL INFORMATION: M53.3 - Sacrococcygeal disorders, not elsewhere classified COMPARISON: CT pelvis into 04/04/2019 TECHNIQUE: Fluoroscopy Supervised By: Dr. Myles Sweeney. Fluoroscopy Time: 0.1 minutes. Cumulative Dose: 1.92 mGy. DAP: 0.421 Gycm2. Images: 1. FINDINGS: Spinal needle overlies the mid right SI joint. There is contrast in the periarticular soft tissues with probable early intra-articular contrast. FL/FL guidance in treatment room IMPRESSION: Fluoroscopy for pain management procedure.
== END 2023-01-13 06:02 | disposition home or self-care (01) ==
LOC: CF 06:01
PROVIDERS: Visit Provider Anesthesiology
DX: G58.8 Other specified mononeuropathies (principal); M46.1 Sacroiliitis, not elsewhere classified; M53.3 Sacrococcygeal disorders, not elsewhere classified; G89.29 Other chronic pain
CPT/HCPCS: 27096

== ENCOUNTER → 2023-01-16 15:31 | Outpatient (BNVA) | payer OTHER, SELFPAY | PROVIDERS: PCP Internal Medicine; Visit Provider Internal Medicine | DX: I26.99 Other pulmonary embolism without acute cor pulmonale (principal); I82.409 Acute embolism and thrombosis of unspecified deep veins of unspecified lower extremity; Z79.01 Long term (current) use of anticoagulants; Z51.81 Encounter for therapeutic drug level monitoring | CPT/HCPCS: 85610; 99211 ==

== ENCOUNTER → 2023-01-19 15:32 | Outpatient (BNVA) | payer OTHER, SELFPAY | PROVIDERS: PCP Internal Medicine; Visit Provider Internal Medicine | DX: I26.99 Other pulmonary embolism without acute cor pulmonale (principal); I82.409 Acute embolism and thrombosis of unspecified deep veins of unspecified lower extremity; Z79.01 Long term (current) use of anticoagulants; Z51.81 Encounter for therapeutic drug level monitoring | CPT/HCPCS: 85610; 99211 ==

== ENCOUNTER → 2023-01-30 11:11 | Outpatient (BNVA) | payer OTHER, SELFPAY | PROVIDERS: PCP Internal Medicine; Visit Provider Internal Medicine | DX: I26.99 Other pulmonary embolism without acute cor pulmonale (principal); Z86.718 Personal history of other venous thrombosis and embolism; Z79.01 Long term (current) use of anticoagulants; Z51.81 Encounter for therapeutic drug level monitoring | CPT/HCPCS: 85610; 99211 ==

== ENCOUNTER 2023-02-10 10:03 | Outpatient (REF) | payer OTHER, SELFPAY ==
[2023-02-10 12:06] LABS: Prostate Specific Antigen 1.59 ng/mL (<0.05-4.0)
== END 2023-02-10 10:04 | disposition home or self-care (01) ==
LOC: HO.LAB 10:03
PROVIDERS: PCP Internal Medicine; Visit Provider Urology
DX: N40.1 Benign prostatic hyperplasia with lower urinary tract symptoms (principal); N13.8 Other obstructive and reflux uropathy; Z12.5 Encounter for screening for malignant neoplasm of prostate; I26.99 Other pulmonary embolism without acute cor pulmonale; I82.409 Acute embolism and thrombosis of unspecified deep veins of unspecified lower extremity; Z51.81 Encounter for therapeutic drug level monitoring; Z79.01 Long term (current) use of anticoagulants
CPT/HCPCS: 36415; 84153; 85610; 99211

== ENCOUNTER 2023-02-17 10:01 | Outpatient (REF) | payer OTHER, SELFPAY ==
[2023-02-17 17:06] LABS: Urine Cytology See Pathology rpt
== END 2023-02-17 10:02 | disposition home or self-care (01) ==
LOC: HO.LAB 10:01
PROVIDERS: PCP Internal Medicine; Visit Provider Urology
DX: R31.29 Other microscopic hematuria (principal); N40.1 Benign prostatic hyperplasia with lower urinary tract symptoms; N13.8 Other obstructive and reflux uropathy; N41.9 Inflammatory disease of prostate, unspecified; Z79.899 Other long term (current) drug therapy; Z79.01 Long term (current) use of anticoagulants
CPT/HCPCS: 51798; 88112; 99212

== ENCOUNTER → 2023-02-19 14:55 | Outpatient (BNVA) | payer OTHER, SELFPAY | PROVIDERS: PCP Internal Medicine; Visit Provider Internal Medicine | DX: I26.99 Other pulmonary embolism without acute cor pulmonale (principal); I82.409 Acute embolism and thrombosis of unspecified deep veins of unspecified lower extremity; Z79.01 Long term (current) use of anticoagulants; Z51.81 Encounter for therapeutic drug level monitoring | CPT/HCPCS: 85610; 99211 ==

== ENCOUNTER → 2023-02-27 15:18 | Outpatient (BNVA) | payer OTHER, SELFPAY | PROVIDERS: PCP Internal Medicine; Visit Provider Internal Medicine | DX: I26.99 Other pulmonary embolism without acute cor pulmonale (principal); Z51.81 Encounter for therapeutic drug level monitoring; Z79.01 Long term (current) use of anticoagulants | CPT/HCPCS: 85610; 99211 ==

== ENCOUNTER → 2023-03-13 15:55 | Outpatient (BNVA) | payer OTHER, SELFPAY | PROVIDERS: PCP Internal Medicine; Visit Provider Internal Medicine | DX: I26.99 Other pulmonary embolism without acute cor pulmonale (principal); I82.409 Acute embolism and thrombosis of unspecified deep veins of unspecified lower extremity; Z79.01 Long term (current) use of anticoagulants; Z51.81 Encounter for therapeutic drug level monitoring | CPT/HCPCS: 85610; 99211 ==

== ENCOUNTER 2023-03-14 04:53 | Inpatient (IN) | payer OTHER, SELFPAY ==
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
[2023-03-14 04:57] VITALS: BP 156/99; PULSE 77; RESP 18; TEMP 36.6; O2SAT 99; BMI 23.3
--- NOTE | 2023-03-14 05:07 | ECG_ITS ---
Test Reason : WEAKNESS Blood Pressure : / mmHG Vent. Rate : 066 BPM Atrial Rate : 066 BPM P-R Int : 134 ms QRS Dur : 096 ms QT Int : 436 ms P-R-T Axes : 033 -17 024 degrees QTc Int : 457 ms Normal sinus rhythm Minimal voltage criteria for LVH, may be normal variant ( R in aVL ) Borderline ECG When compared with ECG of 02-OCT-2022 18:06, No significant change was found Referred By: Generic ED Physician Electronically Signed By:Beck Marvin
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
[2023-03-14 05:24] LABS: Prothrombin Time Whole Bld POC 38.3 sec (11.1-13.5); ~PT, ~INR - Anti Coag Clinic 3.2 (0.9-1.1)
[2023-03-14 05:33] LABS: Basophils Percent Auto 0.6 % (0-2); Eosinophils Absolute Auto 0.3 X10*3/uL (0.0-0.4); Eosinophils Percent Auto 4.6 % (0-4); Hemoglobin 14.6 g/dl (14.0-18.0); Imm Gran Abs Auto 0.02 X10*3/uL (0.00-0.03); Imm Gran Pct Auto 0.3 % (0.0-0.4); Lymphocytes Absolute Auto 3.2 X10*3/uL (1.2-4.9); Lymphocytes Percent Auto 49.9 % (20-40); MANUAL DIFF FLAG NO; Mean Corpuscular HGB Conc 34.8 g/dl (31.0-36.0); Mean Corpuscular Hemoglobin 30.6 pg (27.0-33.0); Mean Corpuscular Volume 88.1 fL (80.0-98.0); Monocytes Absolute Auto 0.6 X10*3/uL (0.1-1.2); Neutrophils Absolute Auto 2.3 x10*3/uL (2.0-8.3); Neutrophils Percent Auto 35.6 % (45-73); Platelet Count 224 X10*3/uL (160-400); Red Blood Count 4.77 X10*6/uL (4.60-5.80); Red Cell Distribution Width 13.5 % (11.0-16.0); White Blood Count 6.5 X10*3/uL (4.8-10.8)
[2023-03-14 05:40] LABS: INTERNATIONAL NORM RATIO 2.9 (0.9-1.1)
[2023-03-14 05:48] LABS: Anion Gap 14 (12-20); Blood Urea Nitrogen 17 mg/dL (9-16); Calcium 8.9 mg/dL (8.4-10.2); Carbon Dioxide 25 mmol/L (22-29); Chloride 105 mmol/L (96-108); Creatinine Clr Calc Pharmacy 74.5; Estimated Glomerular Filt Rate > 60; Glucose Random 141 mg/dL (60-115); Potassium 3.9 mmol/L (3.3-5.1); Sodium 140 mmol/L (135-145)
[2023-03-14 05:52] LABS: Stroke Lab Use COMPLETE; Troponin-I High Sensitivity < 2.7 ng/L (<3.5-35.0)
[2023-03-14 06:22] VITALS: BP 141/84; PULSE 64; RESP 15; TEMP 36.8; O2SAT 99
[2023-03-14 06:30] LABS: Glucose, Whole Blood 140 mg/dL (60-115)
[2023-03-14 07:05] VITALS: BP 164/91; PULSE 69; RESP 14; O2SAT 96
[2023-03-14] MEDS: iohexoL 350 MG/ML 100 ML INFUS..BTL 70 ML IV (07:10)
--- NOTE | 2023-03-14 07:37 | PC.NURSE ---
Pt was ambulatory to room from triage. Pt has equal strong bilateral hand grasps, no arm drift and equal bilateral plantar flexion and extension. Clear speech, no facial droop. Aman interpretor ipad used at bedside for mongolian translation.
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
--- NOTE | 2023-03-14 10:14 | PHA.MEDREC ---
Pharmacy Consult ? Medication Reconciliation Pharmacy has completed the medication reconciliation. Used executive sous chef. Currently patient takes 1.5 tabs of the warfarin 5 (7.5mg) daily and had lipitor changed to crestor recently [place]
[2023-03-14 10:17] VITALS: BP 143/92; PULSE 74; RESP 16; O2SAT 97
[2023-03-14 12:19] VITALS: BP 146/85; PULSE 70; RESP 20; TEMP 36.3; O2SAT 97
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
--- NOTE | 2023-03-14 13:40 | MHC.CM.PN ---
D/C order prior to CM interview. D/C order for home, self care. CM acknowledge.
== END 2023-03-14 15:24 | disposition home or self-care (01) | DRG 93 ==
LOC: HO.ED 09:42 → HO.IMC 10:00
PROVIDERS: Admitting Provider Internal Medicine; Emergency Provider Emergency Medicine; PCP Internal Medicine; Visit Provider Internal Medicine
DX: R20.2 Paresthesia of skin (principal); R20.0 Anesthesia of skin; E78.00 Pure hypercholesterolemia, unspecified; G62.9 Polyneuropathy, unspecified; I10 Essential (primary) hypertension; Z86.19 Personal history of other infectious and parasitic diseases; Z86.711 Personal history of pulmonary embolism; Z79.01 Long term (current) use of anticoagulants; Z79.51 Long term (current) use of inhaled steroids; Z79.899 Other long term (current) drug therapy
CPT/HCPCS: 36415; 70496; 70498; 80048; 82550; 82947; 84484; 85025; 85610; 85730; 93005; 99222; 99285; Q9967

== ENCOUNTER → 2023-03-26 15:32 | Outpatient (BNVA) | payer OTHER, SELFPAY | PROVIDERS: PCP Internal Medicine; Visit Provider Internal Medicine | DX: I26.99 Other pulmonary embolism without acute cor pulmonale (principal); I82.409 Acute embolism and thrombosis of unspecified deep veins of unspecified lower extremity; Z79.01 Long term (current) use of anticoagulants; Z51.81 Encounter for therapeutic drug level monitoring | CPT/HCPCS: 85610; 99211 ==

== ENCOUNTER → 2023-04-16 12:05 | Outpatient (BNVA) | payer OTHER, SELFPAY | PROVIDERS: PCP Internal Medicine; Visit Provider Internal Medicine | DX: I26.99 Other pulmonary embolism without acute cor pulmonale (principal); I82.409 Acute embolism and thrombosis of unspecified deep veins of unspecified lower extremity; Z79.01 Long term (current) use of anticoagulants; Z51.81 Encounter for therapeutic drug level monitoring | CPT/HCPCS: 85610; 99211 ==

== ENCOUNTER → 2023-05-13 08:37 | Outpatient (BNVA) | payer OTHER, SELFPAY | PROVIDERS: PCP Internal Medicine; Visit Provider Internal Medicine | DX: I26.99 Other pulmonary embolism without acute cor pulmonale (principal); I82.409 Acute embolism and thrombosis of unspecified deep veins of unspecified lower extremity; Z79.01 Long term (current) use of anticoagulants; Z51.81 Encounter for therapeutic drug level monitoring | CPT/HCPCS: 85610; 99211 ==

== ENCOUNTER 2023-05-26 13:11 | Outpatient (REF) | payer OTHER, SELFPAY ==
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
== END 2023-05-26 13:12 | disposition home or self-care (01) ==
LOC: HO.XRAY 13:11
PROVIDERS: PCP Internal Medicine; Visit Provider Psychiatry & Neurology Neurology
DX: I26.99 Other pulmonary embolism without acute cor pulmonale (principal); Z86.718 Personal history of other venous thrombosis and embolism; M54.12 Radiculopathy, cervical region; Z51.81 Encounter for therapeutic drug level monitoring; Z79.01 Long term (current) use of anticoagulants
CPT/HCPCS: 72050; 73030; 85610; 99211

== ENCOUNTER 2023-05-26 13:11 | Outpatient (AMB) | payer OTHER, SELFPAY ==
--- NOTE | 2023-05-26 13:46 | MHC.OFFVISCO ---
Intake Intake Visit Reasons: Anticoagulation Allergies No Known Drug Allergies [NO KNOWN DRUG ALLERGIES] Allergy (Mild, Verified 05/26/23 13:43) NONE Medication List - Last Reconciled 05/26/23 by Trini Graham RN albuterol sulfate 90 mcg/actuation (ProAir HFA) 2 puffs inhalation Q4-6H PRN fluticasone propionate 110 mcg/actuation (Flovent HFA) 1 puff PO BID gabapentin 300 mg PO TID lisinopril-hydrochlorothiazide 20-12.5 mg 1 tab PO DAILY naloxone 4 mg/actuation (Narcan) 1 spray intranasal ONCE oxycodone 5 mg PO Q8H PRN rosuvastatin 5 mg PO BEDTIME sildenafil (Viagra) 100 mg PO DAILY PRN tamsulosin 0.4 mg PO BEDTIME 90 days warfarin 7.5 mg See Protocol PO DAILY@1800 Nursing Note INR: 2.7- in therapeutic range Medications and supplements reviewed No changes in health, diet, medications, or supplements, Denies any signs and symptoms of bleeding or bruising or clotting. 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
[2023-05-26 15:40] LABS: Prothrombin Time Whole Bld POC 32.3 sec (11.1-13.5); ~PT, ~INR - Anti Coag Clinic 2.7 (0.9-1.1)
== END 2023-05-26 14:20 | disposition home or self-care (01) ==
LOC: HO.ACS 13:11
PROVIDERS: PCP Internal Medicine; Visit Provider Internal Medicine
DX: Z79.01 Long term (current) use of anticoagulants (principal)

== ENCOUNTER 2023-07-06 12:47 | Outpatient (AMB) | payer OTHER, SELFPAY ==
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
[2023-07-06 13:26] VITALS: BP 118/70; PULSE 87; O2SAT 95; BMI 29.2
== END 2023-07-06 13:39 | disposition home or self-care (01) ==
PROVIDERS: PCP Internal Medicine; Visit Provider Anesthesiology
DX: G58.8 Other specified mononeuropathies (principal); M46.1 Sacroiliitis, not elsewhere classified; M53.3 Sacrococcygeal disorders, not elsewhere classified; G89.29 Other chronic pain
CPT/HCPCS: 99214

== ENCOUNTER → 2023-07-06 12:47 | Outpatient (BNVA) | payer OTHER, SELFPAY | PROVIDERS: PCP Internal Medicine; Visit Provider Anesthesiology | DX: G89.29 Other chronic pain (principal); M46.1 Sacroiliitis, not elsewhere classified; M53.3 Sacrococcygeal disorders, not elsewhere classified; G58.8 Other specified mononeuropathies | CPT/HCPCS: 99212 ==

== ENCOUNTER 2023-07-09 08:59 | Outpatient (REF) | payer OTHER, SELFPAY ==
--- NOTE | 2023-07-09 | EMG_ITS ---
Right median and ulnar motor and sensory studies were performed. Right radial sensory study was performed. Paraspinal muscles were tested with a needle. IMPRESSION: 1. Oaki-[id number] right median neuropathy across the carpal tunnel. 2. Bnnt-hc-[id number] right ulnar neuropathy across the cubital tunnel. 3. Underlying sensory motor axonal peripheral neuropathy. MD ANUSHKA Ansari/MATTY / [id number]
== END 2023-07-09 09:00 | disposition home or self-care (01) ==
LOC: HO.NEURO 08:59
PROVIDERS: PCP Internal Medicine; Visit Provider Internal Medicine
DX: I26.99 Other pulmonary embolism without acute cor pulmonale (principal); Z86.718 Personal history of other venous thrombosis and embolism; R20.2 Paresthesia of skin; R20.0 Anesthesia of skin; Z51.81 Encounter for therapeutic drug level monitoring; Z79.01 Long term (current) use of anticoagulants
CPT/HCPCS: 85610; 95886; 95909; 99211

== ENCOUNTER 2023-07-09 09:30 | Outpatient (AMB) | payer OTHER, SELFPAY ==
[2023-07-09 09:35] LABS: Prothrombin Time Whole Bld POC 37.9 sec (11.1-13.5); ~PT, ~INR - Anti Coag Clinic 3.2 (0.9-1.1)
--- NOTE | 2023-07-09 09:41 | MHC.OFFVISCO ---
Intake Intake Visit Reasons: Anticoagulation Allergies No Known Drug Allergies [NO KNOWN DRUG ALLERGIES] Allergy (Mild, Verified 07/09/23 09:30) NONE Medication List - Last Reconciled 07/09/23 by Yi Briggs RN albuterol sulfate 90 mcg/actuation (ProAir HFA) 2 puffs inhalation Q4-6H PRN cetirizine 10 mg PO QAM fluticasone propionate 110 mcg/actuation (Flovent HFA) 1 puff PO BID gabapentin 300 mg PO TID lisinopril-hydrochlorothiazide 20-12.5 mg 1 tab PO DAILY naloxone 4 mg/actuation (Narcan) 1 spray intranasal ONCE oxycodone 5 mg PO Q8H PRN rosuvastatin 5 mg PO BEDTIME sildenafil (Viagra) 100 mg PO DAILY PRN tamsulosin 0.4 mg PO BEDTIME 90 days warfarin 7.5 mg See Protocol PO DAILY@1800 Nursing Note Pt here for a nuerology exam -for his right hand pinky finger he is tung to have surgery for pain in his sacroiliac joint, note from Dr Sweeney, [facility] It looks to me that this patient is suffering from 2. independent pain generators.? One is subcostal neuralgia and the other is sacroiliac joint problem.? I offered him diagnostic sacroiliac joint injection to properly diagnose his pain in the right sacroiliac joint.? He went for diagnostic sacroiliac joint injection and he reported 1 month of complete pain relieve after injection.? He seem to be healthy individual and nonsmoker.? I offered him sacroiliac joint steroid injections versus sacroiliac joint fusion.? I will perform fusion under general anesthesia.? I reported to him that in 70% of the patients who go for sacroiliac joint fusion the pain is completely eliminated.? Risks and benefits were explained as well to the patient.? He is on blood thinners and he has to stop his Coumadin for full 6 days before the procedure.? He will be able to restart Coumadin on day 2 after the procedure.? He does not need in my opinion Lovenox bridge because he is taking Coumadin for deep vein thrombosis of bilateral lower extremities. pt does not know the date of the procedure - call placed to pain management spoke with Keisha pappas date at this time - more of pt hx given, enc labs due to hx of Hep C in the past, Green field filter, had dvts and PE INR: 3.2 in therapeutic range Medications and supplements reviewed No changes in health, diet, medications, or supplements, Denies any signs and symptoms of bleeding or bruising or clotting. Bleeding, bruising, clotting discussed Nutritional guidance given- eat greens today Dose: 7.5mg daily F/U INR: 2 weeks incase any surgery Patient verbalizes understanding of instructions given ellis notify PCP Anti-Coag Initial Assessment Social Hx Patient Tobacco Use Status: Never used Tobacco alcohol intake: former Alcohol intake frequency: holidays/special occasions only Coding Level of Care Code Est Patient Level 1 Diagnoses Current use of anticoagulant therapy Z79.01 Results AMB INR Fingerstick AMB INR Fingerstick 3.2 Last Edit by Yi Briggs RN on 07/09/23 09:38 MANUAL ENTRY DELAYED ONSET Assessment & Plan Assessment & Plan (1) Current use of anticoagulant therapy: 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
== END 2023-07-09 10:01 | disposition home or self-care (01) ==
LOC: HO.ACS 09:30
PROVIDERS: PCP Internal Medicine; Visit Provider Internal Medicine
DX: Z79.01 Long term (current) use of anticoagulants (principal)

== ENCOUNTER 2023-07-15 13:22 | Outpatient (REF) | payer OTHER, SELFPAY ==
--- NOTE | ~2023-07-15 | XR_ITS ---
EXAMINATION: XR PELVIS CLINICAL INFORMATION: Sacrococcygeal disorder COMPARISON: CT abdomen and pelvis from 12/21/2018 TECHNIQUE: 3 views of the pelvis FINDINGS: No acute visible fracture or dislocation. Chronic irregularity of the right greater trochanter along its superior margin. Degenerative changes of the bilateral femoral acetabular joints. Degenerative arthropathy of the lumbosacral spine. Joint spaces and alignment are otherwise maintained. Bowel gas is unremarkable. Pelvic phleboliths are noted. Partially visualized IVC filter. XR/XR pelvis 1-2V IMPRESSION: 1. No acute visible fracture or dislocation. 2. Chronic irregularity of the right greater trochanter along its superior margin. 3. Degenerative changes of the bilateral femoral acetabular joints.
[2023-07-15 15:14] LABS: Anion Gap 13 (12-20); Blood Urea Nitrogen 15 mg/dL (9-16); Calcium 9.5 mg/dL (8.4-10.2); Carbon Dioxide 27 mmol/L (22-29); Chloride 103 mmol/L (96-108); Estimated Glomerular Filt Rate > 60; Glucose Random 101 mg/dL (60-115); Potassium 3.6 mmol/L (3.3-5.1); Sodium 139 mmol/L (135-145)
== END 2023-07-15 13:23 | disposition home or self-care (01) ==
LOC: HO.LAB 13:22
PROVIDERS: PCP Internal Medicine; Visit Provider Anesthesiology
DX: M47.816 Spondylosis without myelopathy or radiculopathy, lumbar region (principal); M53.3 Sacrococcygeal disorders, not elsewhere classified; G89.29 Other chronic pain; M46.1 Sacroiliitis, not elsewhere classified
CPT/HCPCS: 36415; 72170; 80048

== ENCOUNTER 2023-07-15 15:53 | Observation (INO) | payer OTHER, SELFPAY ==
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
[2023-07-15 16:31] VITALS: BP 90/55; PULSE 99; RESP 20; TEMP 36.4; O2SAT 94; BMI 28.6
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
--- NOTE | 2023-07-15 16:36 | ECG_ITS ---
Test Reason : FALL Blood Pressure : / mmHG Vent. Rate : 085 BPM Atrial Rate : 085 BPM P-R Int : 148 ms QRS Dur : 084 ms QT Int : 384 ms P-R-T Axes : 062 -19 036 degrees QTc Int : 456 ms Normal sinus rhythm Minimal voltage criteria for LVH, may be normal variant ( R in aVL ) Borderline ECG When compared with ECG of 14-MAR-2023 05:53, No significant change was found Referred By: Cecilia Johnson Electronically Signed By:TESS DOUGLAS
[2023-07-15 17:35] VITALS: BP 104/66; PULSE 85; RESP 21; TEMP 36.6; O2SAT 95
[2023-07-15 18:13] LABS: MANUAL DIFF FLAG NO
[2023-07-15 18:31] LABS: Basophils Absolute Auto 0.1 X10*3/uL (0.0-0.2); Basophils Percent Auto 0.5 % (0-2); Eosinophils Absolute Auto 0.1 X10*3/uL (0.0-0.4); Eosinophils Percent Auto 1.4 % (0-4); Hematocrit 37.5 % (42.0-52.0); Imm Gran Abs Auto 0.04 X10*3/uL (0.00-0.03); Imm Gran Pct Auto 0.4 % (0.0-0.4); Lymphocytes Absolute Auto 1.9 X10*3/uL (1.2-4.9); Lymphocytes Percent Auto 20.6 % (20-40); Mean Corpuscular HGB Conc 34.7 g/dl (31.0-36.0); Mean Corpuscular Hemoglobin 30.5 pg (27.0-33.0); Mean Platelet Volume 10.2 fL (9.4-12.4); Monocytes Absolute Auto 0.9 X10*3/uL (0.1-1.2); Monocytes Percent Auto 9.6 % (2-11); Neutrophils Absolute Auto 6.2 x10*3/uL (2.0-8.3); Neutrophils Percent Auto 67.5 % (45-73); Platelet Count 218 X10*3/uL (160-400); Red Blood Count 4.26 X10*6/uL (4.60-5.80); Red Cell Distribution Width 13.7 % (11.0-16.0); White Blood Count 9.2 X10*3/uL (4.8-10.8)
[2023-07-15 18:42] LABS: Alanine Aminotransferase 27 U/L (0-40); Albumin Level 4.4 g/dL (3.5-5.0); Alkaline Phosphatase 55 U/L (39-117); Anion Gap 12 (12-20); Aspartate Amino Transferase 31 U/L (5-37); Bilirubin Direct 0.1 mg/dL (0.0-0.5); Bilirubin Total 0.5 mg/dL (0.0-1.0); Blood Urea Nitrogen 19 mg/dL (9-16); Calcium 9.2 mg/dL (8.4-10.2); Carbon Dioxide 28 mmol/L (22-29); Chloride 105 mmol/L (96-108); Creatinine Clr Calc Pharmacy 39.6; Estimated Glomerular Filt Rate 31; Glucose Random 114 mg/dL (60-115); Magnesium 2.2 mg/dL (1.6-2.6); Potassium 4.1 mmol/L (3.3-5.1); Sodium 141 mmol/L (135-145); Total Protein 7.5 g/dL (6.5-8.0)
[2023-07-15 18:47] LABS: Troponin-I High Sensitivity 4.2 ng/L (<3.5-35.0)
[2023-07-15] MEDS: 0.9 % Sodium Chloride 1,000 ML 999 ML IV (18:47)
[2023-07-15 18:49] VITALS: PULSE 75; RESP 19; TEMP 36.8
--- NOTE | 2023-07-15 19:12 | MHC.EDTECH ---
THIS TECH TOOK OVER CARE AT 1900 ED ROUNDS ARE DONE PATIENT IS RESTING COMFORTABLY WILL CONTINUE MONITORING
[2023-07-15] MEDS: Amoxicillin/Potassium Clav 500 MG TABLET PO (19:17)
[2023-07-15 19:20] VITALS: BP 113/65; PULSE 85; RESP 18; O2SAT 95
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
[2023-07-15] MEDS: 0.9 % Sodium Chloride 1,000 ML 100 ML IVCONT (19:49)
--- NOTE | 2023-07-15 19:50 | PHA.MEDREC ---
Pharmacy Consult ? Medication Reconciliation Pharmacy has completed the medication reconciliation. Patient reported medications, report he has not taken warfarin yet today. His current warfarin dose is 7.5 mg daily. Ann Marie Suh, DirkD
[2023-07-15 19:55] LABS: Appearance Urine Clear; Color Urine Yellow; Glucose Urine UA Negative (Negative); Leukocyte Esterase Urine Negative (Negative); Nitrite Urine Negative (Negative); Specific Gravity - Urine 1.015 (1.005-1.025); UMIC TRIGGER UACC YES; Urine Blood Negative (Negative); Urine Ketones Negative (Negative); Urine Protein 30 (1+) mg/dL (Neg-Trace)
[2023-07-15 20:00] VITALS: BP 120/74; PULSE 78; RESP 15; TEMP 36.9; O2SAT 93
[2023-07-15 20:07] LABS: Bacteria Urine None Seen (None Seen); Calcium Oxalate Crystals Urine Present; RBC Urine 0-2 /HPF (0-2); Squamous Epithelial Cell Urine 0-2 /HPF (0-2); WBC Urine 0-5 /HPF (0-5)
[2023-07-15] MEDS: Gabapentin 300 MG CAPSULE PO (20:55)
[2023-07-15] MEDS: Atorvastatin Calcium 20 MG TABLET PO (20:55)
[2023-07-15] MEDS: Acetaminophen 325 MG TABLET 650 MG PO (20:55)
[2023-07-15] MEDS: Melatonin 3 MG TABLET 6 MG PO (21:02)
[2023-07-15 21:03] LABS: Prothrombin Time 37.1 SEC (11.1-13.3)
[2023-07-15 21:42] LABS: Vitamin B12 534 pg/mL (200-900)
[2023-07-16] VITALS (10 sets, daily range): BP systolic 87–142; BP diastolic 59–84; PULSE 52–74; RESP 17–20; TEMP 36.3–37.2; O2SAT 92–98
[2023-07-16 05:53] LABS: MANUAL DIFF FLAG NO
[2023-07-16 05:58] LABS: Basophils Percent Auto 0.4 % (0-2); Eosinophils Absolute Auto 0.3 X10*3/uL (0.0-0.4); Eosinophils Percent Auto 4.5 % (0-4); Hematocrit 35.2 % (42.0-52.0); Imm Gran Abs Auto 0.01 X10*3/uL (0.00-0.03); Imm Gran Pct Auto 0.1 % (0.0-0.4); Lymphocytes Absolute Auto 2.6 X10*3/uL (1.2-4.9); Lymphocytes Percent Auto 37.5 % (20-40); Mean Corpuscular HGB Conc 34.1 g/dl (31.0-36.0); Mean Corpuscular Hemoglobin 29.9 pg (27.0-33.0); Mean Corpuscular Volume 87.8 fL (80.0-98.0); Mean Platelet Volume 10.1 fL (9.4-12.4); Monocytes Absolute Auto 0.5 X10*3/uL (0.1-1.2); Monocytes Percent Auto 7.8 % (2-11); Neutrophils Absolute Auto 3.4 x10*3/uL (2.0-8.3); Neutrophils Percent Auto 49.7 % (45-73); Platelet Count 200 X10*3/uL (160-400); Red Blood Count 4.01 X10*6/uL (4.60-5.80); Red Cell Distribution Width 13.5 % (11.0-16.0); White Blood Count 6.9 X10*3/uL (4.8-10.8)
[2023-07-16 06:03] LABS: Prothrombin Time 36.8 SEC (11.1-13.3)
[2023-07-16 06:10] LABS: Anion Gap 10 (12-20); Blood Urea Nitrogen 21 mg/dL (9-16); Calcium 8.4 mg/dL (8.4-10.2); Carbon Dioxide 23 mmol/L (22-29); Chloride 109 mmol/L (96-108); Estimated Glomerular Filt Rate > 60; Glucose Random 106 mg/dL (60-115); Potassium 3.6 mmol/L (3.3-5.1); Sodium 138 mmol/L (135-145)
[2023-07-16] MEDS: Fluticasone Propionate 100 MCG BLST.W.DEV 1 PUFF INHALE ×2 (08:09→19:34)
[2023-07-16] MEDS: Gabapentin 300 MG CAPSULE PO ×3 (08:48→20:36)
[2023-07-16] MEDS: 0.9 % Sodium Chloride 1,000 ML 100 ML IVCONT ×2 (08:48→16:44)
[2023-07-16] MEDS: Tamsulosin HCL 0.4 MG CAPSULE PO (08:48)
[2023-07-16] MEDS: Acetaminophen 325 MG TABLET 650 MG PO ×2 (08:49→20:35)
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
--- NOTE | 2023-07-16 11:49 | HO.PM.IMPN ---
Subjective Subjective Date of Service: 07/16/23 Interval History: seen and examined this morning follow up for syncope orthostatics still positive no overnight events history obtained with the assistance of a supervisor powdered metal no specific complaints Review of Systems Review of Systems: Yes all other systems are reviewed and are negative Constitutional Constitutional: Denies chills and Denies fever(s) Cardiovascular Cardiovascular: Denies chest pain and Denies dyspnea Respiratory Respiratory: Denies cough and Denies dyspnea Physical Exam Vital Signs: Vital Signs: Last Vital Signs Temp 97.4 F 07/16/23 11:17 Pulse 59 07/16/23 11:17 Resp 20 07/16/23 11:17 BP 136/73 07/16/23 11:17 Pulse Ox 98 07/16/23 11:17 O2 Del Method Room Air 07/16/23 11:17 BMI result Body Mass Index 28.6 Const: General: cooperative, comfortable, alert and awake Nutritional Appearance: average body habitus Orientation/consciousness: patient oriented x3 HEENT: Other: bruising around left eye, left side of nose Resp: Effort & Inspection: normal respiratory effort, able to speak in complete sentences, no respiratory distress and no use of accessory muscles Cardio: Rate: regular rate Heart sounds: S1 normal heart sound present and S2 normal heart sound present GI: Inspection: No distended Palpation (GI): Soft to palpation and nontender Neuro: General: patient oriented x3, moves all extremities and CN's II-XI intact bilaterally Extrem: General: Yes no pedal edema Objective Data Active Medications Acetaminophen (Acetaminophen 325 Mg Tablet) 650 mg PO Q6H PRN PRN Reason: Pain, Mild (Pain Scale 1-3) Last Admin: 07/16/23 08:49 Dose: 650 mg Documented By: EMMANUEL Atorvastatin Calcium (Atorvastatin Calcium 20 Mg Tablet) 20 mg PO BEDTIME [facility] Last Admin: 07/15/23 20:55 Dose: 20 mg Documented By: MIK Fluticasone Propionate (Fluticasone Propionate 100 Mcg Blst.W.Dev) 1 puff INHALE RBID [facility] Last Admin: 07/16/23 08:09 Dose: 1 puff Documented By: ANGELA Gabapentin (Gabapentin 300 Mg Capsule) 300 mg PO TID [facility] Last Admin: 07/16/23 08:48 Dose: 300 mg Documented By: EMMANUEL Sodium Chloride (Ns) 1,000 mls @ 100 mls/hr IVCONT .Q10H [facility] Last Admin: 07/16/23 08:48 Dose: 100 mls/hr Documented By: EMMANUEL Melatonin (Melatonin 3 Mg Tablet) 6 mg PO BEDTIME PRN PRN Reason: Insomnia Last Admin: 07/15/23 21:02 Dose: 6 mg Documented By: MIK Ondansetron HCl (Ondansetron Hcl 4 Mg/2 Ml Vial) 4 mg IVPUSH Q8H PRN PRN Reason: Nausea and Vomiting Oxycodone HCl (Oxycodone Hcl Immed Release 5 Mg Tablet) 5 mg PO Q4H PRN PRN Reason: Pain, Moderate(Pain Scale 4-6) Sodium Chloride (0.9 % Sodium Chloride Flush 3 Ml Syringe) 3 ml IVFLUSH QSHIFT [facility] Last Admin: 07/16/23 08:48 Dose: Not Given Documented By: EMMANUEL Non-Admin Reason: IV Running Tamsulosin HCl (Tamsulosin Hcl 0.4 Mg Capsule) 0.4 mg PO DAILY [facility] Last Admin: 07/16/23 08:48 Dose: 0.4 mg Documented By: EMMANUEL Warfarin Sodium (Warfarin Sodium 7.5 Mg Tablet) 7.5 mg PO DAILY@1800 [facility] Labs 07/16/23 05:39 07/16/23 05:39 Labs: Laboratory Results - last 24 hr 07/15/23 07/15/23 07/15/23 18:09 18:09 19:43 MCV 88.0 MCH 30.5 MCHC 34.7 RDW 13.7 Plt Count 218 MPV 10.2 Immature Gran % (Auto) 0.4 Neut % (Auto) 67.5 Lymph % (Auto) 20.6 [place] % (Auto) 9.6 Eos % (Auto) 1.4 Baso % (Auto) 0.5 Lymph # (Auto) 1.9 [place] # (Auto) 0.9 Eos # (Auto) 0.1 Baso # (Auto) 0.1 Abs Immat Gran (auto) 0.04 H Absolute Neuts (auto) 6.2 Absolute Nucleated RBC 0.000 Nucleated RBC % (auto) 0.0 PT INR Anion Gap 12 Estim Creat Clear Calc 39.6 Estimated GFR 31 Random Glucose 114 Calcium 9.2 Magnesium 2.2 Total Bilirubin 0.5 Direct Bilirubin 0.1 AST 31 ALT 27 Alkaline Phosphatase 55 Total Protein 7.5 Albumin 4.4 Vitamin B12 Urine Color Yellow Urine Appearance Clear Urine pH 6.0 Ur Specific [place] 1.015 Urine Protein 30 (1+) H Urine Glucose (UA) Negative Urine Ketones Negative Urine Blood Negative Urine Nitrite Negative Ur Leukocyte Esterase Negative Urine RBC 0-2 Urine WBC 0-5 Ur Squamous Epith Cells 0-2 Calcium Oxalate Crystal Present Urine Bacteria None Seen Hyaline Casts 11-07/15/23 07/15/23 07/16/23 20:49 20:49 05:39 MCV 87.8 MCH 29.9 MCHC 34.1 RDW 13.5 Plt Count 200 MPV 10.1 Immature Gran % (Auto) 0.1 Neut % (Auto) 49.7 Lymph % (Auto) 37.5 [place] % (Auto) 7.8 Eos % (Auto) 4.5 H Baso % (Auto) 0.4 Lymph # (Auto) 2.6 [place] # (Auto) 0.5 Eos # (Auto) 0.3 Baso # (Auto) 0.0 Abs Immat Gran (auto) 0.01 Absolute Neuts (auto) 3.4 Absolute Nucleated RBC 0.000 Nucleated RBC % (auto) 0.0 PT 37.1 H INR 3.0 H Anion Gap Estim Creat Clear Calc Estimated GFR Random Glucose Calcium Magnesium Total Bilirubin Direct Bilirubin AST ALT Alkaline Phosphatase Total Protein Albumin Vitamin B12 534 Urine Color Urine Appearance Urine pH Ur Specific [place] Urine Protein Urine Glucose (UA) Urine Ketones Urine Blood Urine Nitrite Ur Leukocyte Esterase Urine RBC Urine WBC Ur Squamous Epith Cells Calcium Oxalate Crystal Urine Bacteria Hyaline Casts 07/16/23 07/16/23 05:39 05:39 MCV MCH MCHC RDW Plt Count MPV Immature Gran % (Auto) Neut % (Auto) Lymph % (Auto) [place] % (Auto) Eos % (Auto) Baso % (Auto) Lymph # (Auto) [place] # (Auto) Eos # (Auto) Baso # (Auto) Abs Immat Gran (auto) Absolute Neuts (auto) Absolute Nucleated RBC Nucleated RBC % (auto) PT 36.8 H INR 3.0 H Anion Gap 10 L Estim Creat Clear Calc 75.0 Estimated GFR > 60 Random Glucose 106 Calcium 8.4 D Magnesium Total Bilirubin Direct Bilirubin AST ALT Alkaline Phosphatase Total Protein Albumin Vitamin B12 Urine Color Urine Appearance Urine pH Ur Specific [place] Urine Protein Urine Glucose (UA) Urine Ketones Urine Blood Urine Nitrite Ur Leukocyte Esterase Urine RBC Urine WBC Ur Squamous Epith Cells Calcium Oxalate Crystal Urine Bacteria Hyaline Casts Assessment and Plan (1) YUKI (acute kidney injury): Status: Acute (2) Fracture of maxillary sinus: Status: Acute (3) Orthostatic syncope: Status: Acute Plan This is a 67-year-old male with pertinent history of AFib on Coumadin, essential hypertension, mixed hyperlipidemia, peripheral neuropathy, asthma who presents to the emergency department for evaluation of syncope and fall. Syncope, likely orthostatic. orthostatics still + Hold lisinopril/hydrochlorothiazide will continue flomax for now, if remains orthostatic would consider changing to bedtime dosing continue IVF Recurrent falls, likely in the setting of above. B12 wnl Physical therapy eval - home without services Acute kidney injury, nonoliguric, stage II. Likely prerenal hold lisinpril/HCTZ SCr trending down with IVF HTN Holding lisinopril/HCTZ BP stable, follow closely Paroxysmal atrial fibrillation continue Coumadin, INR therapeutic at 3.0 Asthma, unspecified No exacerbation during admission. Continue home inhalers DVT prophylaxis: Coumadin Full code attending - dr. Rodgers patient requires ongoing inpatient stay for Time Spent With Patient Time: Total time managing care of this patient today ____ minutes. Quality Stroke Does the patient have a stroke diagnosis?: No VTE Prior VTE?: No VTE Risk Level:: Medical - moderate - high VTE Device Contraindication: Treatment Not Indicated VTE Drug Contraindication: N/A - Med Ordered
[2023-07-16] MEDS: oxyCODONE HCl Immed Release 5 MG TABLET PO (12:31)
[2023-07-16] MEDS: 0.9 % Sodium Chloride Flush 3 ML SYRINGE IVFLUSH (16:44)
[2023-07-16] MEDS: Warfarin Sodium 7.5 MG TABLET PO (18:21)
[2023-07-16] MEDS: Atorvastatin Calcium 20 MG TABLET PO (20:36)
[2023-07-17] MEDS: 0.9 % Sodium Chloride 1,000 ML 100 ML IVCONT (02:53)
[2023-07-17 03:24] VITALS: BP 153/76; PULSE 56; RESP 18; TEMP 36.9; O2SAT 95
[2023-07-17 07:06] LABS: Anion Gap 12 (12-20); Blood Urea Nitrogen 14 mg/dL (9-16); Calcium 8.4 mg/dL (8.4-10.2); Carbon Dioxide 23 mmol/L (22-29); Chloride 110 mmol/L (96-108); Creatinine Clr Calc Pharmacy 83.9; Estimated Glomerular Filt Rate > 60; Glucose Random 87 mg/dL (60-115); Sodium 141 mmol/L (135-145)
[2023-07-17 07:32] VITALS: BP 157/98; PULSE 61; RESP 18; TEMP 36.3; O2SAT 97
[2023-07-17 07:43] VITALS: BP 151/87; PULSE 59
[2023-07-17] MEDS: Fluticasone Propionate 100 MCG BLST.W.DEV 1 PUFF INHALE (07:45)
[2023-07-17 07:46] VITALS: PULSE 66; RESP 18; O2SAT 98
[2023-07-17 07:59] LABS: Hematocrit 36.7 % (42.0-52.0); Hemoglobin 12.3 g/dl (14.0-18.0); Mean Corpuscular HGB Conc 33.5 g/dl (31.0-36.0); Mean Corpuscular Hemoglobin 29.8 pg (27.0-33.0); Mean Corpuscular Volume 88.9 fL (80.0-98.0); Mean Platelet Volume 10.1 fL (9.4-12.4); Platelet Count 207 X10*3/uL (160-400); Red Blood Count 4.13 X10*6/uL (4.60-5.80); Red Cell Distribution Width 13.6 % (11.0-16.0); White Blood Count 5.9 X10*3/uL (4.8-10.8)
[2023-07-17 08:00] VITALS: BP 161/96; BP 164/93; PULSE 62; PULSE 64
[2023-07-17 08:00] LABS: INTERNATIONAL NORM RATIO 2.1 (0.9-1.1); Prothrombin Time 25.3 SEC (11.1-13.3)
[2023-07-17] MEDS: Tamsulosin HCL 0.4 MG CAPSULE PO (08:21)
[2023-07-17] MEDS: Gabapentin 300 MG CAPSULE PO (08:21)
[2023-07-17] MEDS: 0.9 % Sodium Chloride Flush 3 ML SYRINGE IVFLUSH (08:21)
--- NOTE | 2023-07-17 09:44 | P.DS_ITS ---
DS: Providers Provider Date of Service: 07/17/23 Date of admission: 07/15/23 19:25 Date of discharge: 07/17/23 Primary care physician: Sancho Bean MD Attending physician on discharge: Augusto Rodgers Discharging clinician: Tamara Vance DS: Diagnosis Discharge Diagnosis (1) YUKI (acute kidney injury): Status: Acute (2) Fracture of maxillary sinus: Status: Acute (3) Orthostatic syncope: Status: Acute DS: Summary Hospital Course Hospital Course: From H&P on day of admission This is a 67-year-old male with pertinent history of AFib on Coumadin, essential hypertension, mixed hyperlipidemia, peripheral neuropathy, asthma who presents to the emergency department for evaluation of syncope and fall.? Patient states as soon as he got up from a seating position, he felt dizzy and lightheaded and fell.? He hit the left side of his face on the washer.? Patient states he has been getting dizzy over the last couple of months when he tries to get up suddenly.? Reports a fall about 2 months ago.? Denies vomiting, diarrhea or poor p.o. intake.? No jerking movement of extremities.? No chest pain or palpitations.? Patient denies fever, chills, shortness of breath, abdominal pain, changes in urinary or bowel habits. In the emergency department, blood pressure was found to be low and imaging revealed fracture of left maxillary sinus and left side of nasal bone Syncope. Most likely secondary to orthostatic hypotension. Patient was admitted to the telemetry floor, no adverse events were noted on the monitor. Orthostatic vital signs were positive. He was treated with IV fluid. His antihypertensives including lisinopril 20 mg and hydrochlorothiazide 12.5 mg were placed on hold. By day 2 his orthostatic blood pressures had normalized and he no longer felt dizzy upon standing. he did continue to receive his Flomax during hospitalization. Will discharge with decreased dose of lisinpril and stop HCTZ. Recommend outpatient follow up with PCP for close blood pressure monitoring. He sustained fracture of the anterior wall of the maxillary sinus and left side of the nasal bone during his fall, recommend outpatient follow-up with maxillofacial surgery. For YUKI lisinopril and hydrochlorothiazide were held as above, renal function improved to baseline with IV fluid. He was ev aluated by Physical therapy in able to ambulate independently without issue, physical therapy recommended home with no services. Time Spent with Patient Time attestation: Total time managing care of this patient today ____ minutes. Discharge coordination time: Greater than 30 minutes Quality: Safe Use of Opioids Does Pt have an Active Cancer Diagnosis on the Problem List?: No Quality: Stroke Does the patient have a stroke diagnosis?: No Physical Exam Vital Signs: Vital Signs: Last Vital Signs Temp 97.3 F 07/17/23 07:32 Pulse 64 07/17/23 08:00 Resp 18 07/17/23 07:46 BP 164/93 H 07/17/23 08:00 Pulse Ox 97 07/17/23 07:32 O2 Del Method Room Air 07/17/23 07:32 BMI result Body Mass Index 28.6 Const: General: cooperative, comfortable, alert and awake Nutritional Appearance: average body habitus Orientation/consciousness: patient oriented x3 HEENT: Other: bruising around left eye, left side of nose Resp: Effort & Inspection: normal respiratory effort, able to speak in complete sentences, no respiratory distress and no use of accessory muscles Cardio: Rate: regular rate Heart sounds: S1 normal heart sound present and S2 normal heart sound present GI: Inspection: No distended Palpation (GI): Soft to palpation and nontender Neuro: General: patient oriented x3, moves all extremities and CN's II-XI intact bilaterally Extrem: General: Yes no pedal edema DS: Data Data Completed and Pending Labs on day of discharge: Laboratory Results - last 24 hr 07/17/23 07/17/23 07/17/23 06:33 06:33 07:30 WBC 5.9 RBC 4.13 L Hgb 12.3 L Hct 36.7 L MCV 88.9 MCH 29.8 MCHC 33.5 RDW 13.6 Plt Count 207 MPV 10.1 Absolute Nucleated RBC 0.000 Nucleated RBC % (auto) 0.0 PT 25.3 H D INR 2.1 H Sodium 141 Potassium 4.0 Chloride 110 H Carbon Dioxide 23 Anion Gap 12 BUN 14 Creatinine 1.01 Estim Creat Clear Calc 83.9 Estimated GFR > 60 Random Glucose 87 Calcium 8.4 Discharge Plan Discharge Anticipated Discharge Date/Time: 07/17/23 09:11 Patient Disposition: Home, Self-Care Discharge Diagnosis: orthostatic hypotension syncope fracture of maxillary sinus and nasal bone YUKI Referrals: Sancho Bean MD [Primary Care Provider] - 1 Week Discharge Medications: New lisinopril 10 mg tablet 10 mg PO DAILY 30 Days Qty: 30 0RF Continued sildenafil [Viagra] 100 mg Tablet 100 mg PO DAILY PRN (Reason: Sexual Activity) albuterol sulfate [ProAir HFA] 90 mcg/actuation Hfa Aerosol Inhaler 2 puff INHALATION Q4-6H PRN (Reason: Shortness Of Breath) oxycodone 5 mg tablet 5 mg PO Q8H PRN (Reason: Pain) tamsulosin 0.4 mg capsule 0.4 mg PO DAILY rosuvastatin 5 mg tablet 5 mg PO BEDTIME warfarin 5 mg tablet 7.5 mg PO DAILY@1800 Protocol: Dose Management Condition: Thursday (Week One) Dose/Route: 7.5 mg Instruction: 1.5 x 5 mg tablets Condition: Thursday Dose/Route: 7.5 mg Instruction: 1.5 x 5 mg tablets Condition: Thursday Dose/Route: 7.5 mg Instruction: 1.5 x 5 mg tablets Condition: Thursday Dose/Route: 7.5 mg Instruction: 1.5 x 5 mg tablets Condition: Dose/Route: 7.5 mg Instruction: 1.5 x 5 mg tablets Condition: Thursday Dose/Route: 7.5 mg Instruction: 1.5 x 5 mg tablets Condition: Thursday Dose/Route: 7.5 mg Instruction: 1.5 x 5 mg tablets Condition: Thursday (Week Two) Dose/Route: 7.5 mg Instruction: 1.5 x 5 mg tablets Condition: Thursday Dose/Route: 7.5 mg Instruction: 1.5 x 5 mg tablets Condition: Thursday Dose/Route: 7.5 mg Instruction: 1.5 x 5 mg tablets Condition: Thursday Dose/Route: 7.5 mg Instruction: 1.5 x 5 mg tablets Condition: Dose/Route: 7.5 mg Instruction: 1.5 x 5 mg tablets Condition: Thursday Dose/Route: 7.5 mg Instruction: 1.5 x 5 mg tablets Condition: Thursday Dose/Route: 7.5 mg Instruction: 1.5 x 5 mg tablets Protocol Text: Adjustment Start Date: 07/09/23 INR Value: 3.2 INR Date: 07/09/23 Recheck Date: 07/23/23 Additional Instructions: EAT GREENS TODAY CALL WITH DATE OF SURGERY DO YOU HAVE TO STOP THE WARFARIN ? Flovent HFA 110 mcg/actuation HFA aerosol inhaler 1 puff PO BID gabapentin 300 mg capsule 300 mg PO TID Discontinued lisinopril-hydrochlorothiazide 20-12.5 mg tablet 1 tab PO DAILY Discharge Orders: Discharge Order (Routine); Ordered 07/17/23 Ordered By: Tamara Vance Activity on Discharge: As tolerated Stand Alone Forms: Patient Portal Discharge page Care Plan Goals: see below Health Concerns: syncope orthostatic hypotension maxillary facial bone fracture Plan of Treatment: stop taking lisinopril/HCTZ - start taking lisinopril 10 mg daily call to schedule a follow up appointment with your PCP call to schedule an appointment with a maxillofacial surgeon to evauate your maxillary and nasal bone fracture - your PCP may need to refer you or you can call Dr. Willem Vasquez - [facility] who has locations in [facility] or [facility] office number is [phone] Assessment: see discharge summary
--- NOTE | 2023-07-17 11:32 | MHC.CM.PN ---
PT MEDICALLY CLEARED FOR D/C HOME CARE W/FAMILY AT BEDSIDE TO TRANSPORT.
== END 2023-07-17 11:39 | disposition home or self-care (01) ==
LOC: HO.ED 19:22 → HO.EDOVER 19:32 → HO.IMC 19:37
PROVIDERS: Physician Assistant Medical; Admitting Provider Student in an Organized Health Care Education/Training Program; Emergency Provider Emergency Medicine; PCP Internal Medicine; Visit Provider Physician Assistant Medical
DX: I95.1 Orthostatic hypotension (principal); S02.40BA Malar fracture, left side, initial encounter for closed fracture; W31.89XA Contact with other specified machinery, initial encounter; Y93.9 Activity, unspecified; Y92.9 Unspecified place or not applicable; Y99.9 Unspecified external cause status; N17.9 Acute kidney failure, unspecified; I48.91 Unspecified atrial fibrillation; M54.9 Dorsalgia, unspecified; R42 Dizziness and giddiness; I10 Essential (primary) hypertension; J45.909 Unspecified asthma, uncomplicated; E78.2 Mixed hyperlipidemia; G62.9 Polyneuropathy, unspecified; Z86.718 Personal history of other venous thrombosis and embolism; Z79.01 Long term (current) use of anticoagulants; Z91.81 History of falling
CPT/HCPCS: 36415; 70450; 70486; 72125; 80048; 80076; 81001; 82607; 83735; 84484; 85025; 85027; 85610; 93005; 94640; 96360; 96361; 97161; 99222; 99285

== ENCOUNTER → 2023-07-15 19:25 | Outpatient (BNV) | payer OTHER, SELFPAY | PROVIDERS: Admitting Provider Student in an Organized Health Care Education/Training Program; Emergency Provider Emergency Medicine; PCP Internal Medicine; Visit Provider Student in an Organized Health Care Education/Training Program | DX: N17.9 Acute kidney failure, unspecified (principal); S02.401A Maxillary fracture, unspecified side, initial encounter for closed fracture; I95.1 Orthostatic hypotension | CPT/HCPCS: 99222; 99232; 99239 ==

== ENCOUNTER 2023-07-29 12:17 | Outpatient (AMB) | payer OTHER, SELFPAY ==
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
== END 2023-07-29 13:00 | disposition home or self-care (01) ==
LOC: HO.PMC 12:18
PROVIDERS: PCP Internal Medicine; Visit Provider Anesthesiology
DX: G58.8 Other specified mononeuropathies (principal); M46.1 Sacroiliitis, not elsewhere classified; M53.3 Sacrococcygeal disorders, not elsewhere classified; G89.29 Other chronic pain
CPT/HCPCS: 99214

== ENCOUNTER → 2023-07-29 12:17 | Outpatient (BNVA) | payer OTHER, SELFPAY | PROVIDERS: PCP Internal Medicine; Visit Provider Anesthesiology ==

== ENCOUNTER 2023-08-03 14:32 | Outpatient (AMB) | payer OTHER, SELFPAY ==
[2023-08-03 14:43] LABS: Prothrombin Time Whole Bld POC 35.7 sec (11.1-13.5)
--- NOTE | 2023-08-03 14:46 | MHC.OFFVISCO ---
Intake Intake Visit Reasons: Anticoagulation Allergies No Known Drug Allergies [NO KNOWN DRUG ALLERGIES] Allergy (Mild, Verified 08/03/23 14:38) NONE Medication List - Last Reconciled 08/03/23 by Yi Briggs RN albuterol sulfate 90 mcg/actuation (ProAir HFA) 2 puffs inhalation Q4-6H PRN fluoride (sodium) 1.1% (PreviDent 5000 Booster Plus) dental BID fluticasone propionate 110 mcg/actuation (Flovent HFA) 1 puff PO BID gabapentin 300 mg PO TID lisinopril 10 mg PO DAILY 30 days oxycodone 5 mg PO Q8H PRN rosuvastatin 5 mg PO BEDTIME sildenafil (Viagra) 100 mg PO DAILY PRN tamsulosin 0.4 mg PO DAILY warfarin 7.5 mg See Protocol PO DAILY@1800 Nursing Note INR: 3.0 in therapeutic range Medications and supplements reviewed t/c with pt s.o. Leonid mcgregor today- she stated the pt is having a dental cleaning 08/10/23 and needs the INR done in the morning the day of the cleaning, also spoke with pt - he is going to have a lower back procedure in near future with pain clinic and will be holding the warfarin x 6 days - will ask md regarding warfarin hold. pt instructed to call when he receives a date for the procedure Denies any signs and symptoms of bleeding or bruising or clotting. Bleeding, bruising, clotting discussed Nutritional guidance given- eat dark greens 3 days prior your dental appointment so the INR will be lower in your range Dose: 7.5mg daily F/U INR:08/10/23 morning of procedure Patient verbalizes understanding of instructions given Anti-Coag Initial Assessment Social Hx Patient Tobacco Use Status: Never used Tobacco alcohol intake: former Alcohol intake frequency: does not drink Coding Level of Care Code Est Patient Level 1 Diagnoses Current use of anticoagulant therapy Z79.01 Assessment & Plan Assessment & Plan (1) Current use of anticoagulant therapy: Code(s): Z79.01 - prison (current) use of anticoagulants Category: Medical
== END 2023-08-03 14:54 | disposition home or self-care (01) ==
LOC: HO.ACS 14:32
PROVIDERS: PCP Internal Medicine; Visit Provider Internal Medicine
DX: Z79.01 Long term (current) use of anticoagulants (principal)

== ENCOUNTER → 2023-08-03 14:32 | Outpatient (BNVA) | payer OTHER, SELFPAY | PROVIDERS: PCP Internal Medicine; Visit Provider Internal Medicine | DX: I26.99 Other pulmonary embolism without acute cor pulmonale (principal); I82.409 Acute embolism and thrombosis of unspecified deep veins of unspecified lower extremity; Z79.01 Long term (current) use of anticoagulants; Z51.81 Encounter for therapeutic drug level monitoring | CPT/HCPCS: 85610; 99211 ==

== ENCOUNTER 2023-08-10 08:51 | Outpatient (AMB) | payer OTHER, SELFPAY ==
[2023-08-10 08:55] LABS: Prothrombin Time Whole Bld POC 38.8 sec (11.1-13.5); ~PT, ~INR - Anti Coag Clinic 3.2 (0.9-1.1)
--- NOTE | 2023-08-10 08:58 | MHC.OFFVISCO ---
Intake Intake Visit Reasons: Anticoagulation Allergies No Known Drug Allergies [NO KNOWN DRUG ALLERGIES] Allergy (Mild, Verified 08/10/23 08:51) NONE Medication List - Last Reconciled 08/10/23 by Trini Graham RN albuterol sulfate 90 mcg/actuation (ProAir HFA) 2 puffs inhalation Q4-6H PRN fluoride (sodium) 1.1% (PreviDent 5000 Booster Plus) dental BID fluticasone propionate 110 mcg/actuation (Flovent HFA) 1 puff PO BID gabapentin 300 mg PO TID lisinopril 10 mg PO DAILY 30 days oxycodone 5 mg PO Q8H PRN rosuvastatin 5 mg PO BEDTIME sildenafil (Viagra) 100 mg PO DAILY PRN tamsulosin 0.4 mg PO DAILY warfarin 7.5 mg See Protocol PO DAILY@1800 Nursing Note INR 3.2-? out of therapeutic range Medications and supplements reviewed Patient status: pt to have dental cleaining today Medications or supplements: no changes Diet: same Denies any signs and symptoms of bleeding or clotting or unusual bruising Bleeding, bruising, clotting discussed Nutritional guidance given: eat a green today Dose: 5mg today then 7.5mg x 7 F/U INR Date : 1 week?? Patient verbalizing understanding of instructions given. business applications specialist [id number] used for this visit- pt states no date for back surg Anti-Coag Initial Assessment Social Hx Patient Tobacco Use Status: Never used Tobacco alcohol intake: former Alcohol intake frequency: does not drink Coding Level of Care Code Est Patient Level 1 Diagnoses Current use of anticoagulant therapy Z79.01 Assessment & Plan Assessment & Plan (1) Current use of anticoagulant therapy: Code(s): Z79.01 - extermination inspector (current) use of anticoagulants Category: Medical
== END 2023-08-10 09:09 | disposition home or self-care (01) ==
LOC: HO.ACS 08:51
PROVIDERS: PCP Internal Medicine; Visit Provider Internal Medicine
DX: Z79.01 Long term (current) use of anticoagulants (principal)

== ENCOUNTER → 2023-08-10 08:51 | Outpatient (BNVA) | payer OTHER, SELFPAY | PROVIDERS: PCP Internal Medicine; Visit Provider Internal Medicine | DX: I26.99 Other pulmonary embolism without acute cor pulmonale (principal); I82.409 Acute embolism and thrombosis of unspecified deep veins of unspecified lower extremity; Z79.01 Long term (current) use of anticoagulants; Z51.81 Encounter for therapeutic drug level monitoring | CPT/HCPCS: 85610; 99211 ==

== ENCOUNTER 2023-08-17 15:21 | Outpatient (AMB) | payer OTHER, SELFPAY ==
[2023-08-17 15:27] LABS: Prothrombin Time Whole Bld POC 37.1 sec (11.1-13.5); ~PT, ~INR - Anti Coag Clinic 3.1 (0.9-1.1)
--- NOTE | 2023-08-17 15:37 | MHC.OFFVISCO ---
Intake Intake Visit Reasons: Anticoagulation Allergies No Known Drug Allergies [NO KNOWN DRUG ALLERGIES] Allergy (Mild, Verified 08/17/23 15:21) NONE Medication List - Last Reconciled 08/17/23 by Yi Briggs RN albuterol sulfate 90 mcg/actuation (ProAir HFA) 2 puffs inhalation Q4-6H PRN fluoride (sodium) 1.1% (PreviDent 5000 Booster Plus) dental BID fluticasone propionate 110 mcg/actuation (Flovent HFA) 1 puff PO BID gabapentin 300 mg PO TID lisinopril 10 mg PO DAILY 30 days oxycodone 5 mg PO Q8H PRN rosuvastatin 5 mg PO BEDTIME sildenafil (Viagra) 100 mg PO DAILY PRN tamsulosin 0.4 mg PO DAILY warfarin 7.5 mg See Protocol PO DAILY@1800 Nursing Note INR 3.1 out of therapeutic range Medications and supplements reviewed Patient status: HAD HEPATITIS VACCINE 1 1/2-2 WEEKS AGO MAY HAVE RAISED HIS INR, HE IS GOING TO HAVE DEEP ROOT DENTAL CLEANING AND NEEDS INR AT END OF RANGE Medications or supplements: NO CHANGES Diet: GOOD ENC GREENS TODAY Denies any signs and symptoms of bleeding or clotting or unusual bruising Bleeding, bruising, clotting discussed Nutritional guidance given: REVIEW FOOD LIST EAT GREENS WEEKLY Dose: 7.5MG DAILY, DECREASE DOSE 5MG SAT AND SUN PRIOR TO DENTAL PROCEDURE 08/31/23 F/U INR Date : 08/31/23 IN AM WILL NEED TO CALL AND OR FAX RESULTS IN AFTER HIS APPT ?? Patient verbalizing understanding of instructions given. Anti-Coag Initial Assessment Social Hx Patient Tobacco Use Status: Never used Tobacco alcohol intake: former Alcohol intake frequency: does not drink Coding Level of Care Code Est Patient Level 1 Diagnoses Current use of anticoagulant therapy Z79.01 Results AMB INR Fingerstick AMB INR Fingerstick 3.1 Last Edit by Yi Briggs RN on 08/17/23 15:29 delayed interfacing manual entry Assessment & Plan Assessment & Plan (1) Current use of anticoagulant therapy: Code(s): Z79.01 - intermediate manager (current) use of anticoagulants Category: Medical
== END 2023-08-17 15:42 | disposition home or self-care (01) ==
LOC: HO.ACS 15:21
PROVIDERS: PCP Internal Medicine; Visit Provider Internal Medicine
DX: Z79.01 Long term (current) use of anticoagulants (principal)

== ENCOUNTER → 2023-08-17 15:21 | Outpatient (BNVA) | payer OTHER, SELFPAY | PROVIDERS: PCP Internal Medicine; Visit Provider Internal Medicine | DX: I26.99 Other pulmonary embolism without acute cor pulmonale (principal); I82.409 Acute embolism and thrombosis of unspecified deep veins of unspecified lower extremity; Z51.81 Encounter for therapeutic drug level monitoring; Z79.01 Long term (current) use of anticoagulants | CPT/HCPCS: 85610; 99211 ==

== ENCOUNTER 2023-08-21 09:12 | Outpatient (REF) | payer OTHER, SELFPAY ==
[2023-08-21 12:23] LABS: Anion Gap 13 (12-20); Blood Urea Nitrogen 14 mg/dL (9-16); Calcium 9.2 mg/dL (8.4-10.2); Carbon Dioxide 26 mmol/L (22-29); Chloride 107 mmol/L (96-108); Estimated Glomerular Filt Rate > 60; Glucose Random 123 mg/dL (60-115); Potassium 4.1 mmol/L (3.3-5.1); Sodium 142 mmol/L (135-145)
== END 2023-08-21 09:13 | disposition home or self-care (01) ==
LOC: HO.HHCL 09:12
PROVIDERS: Visit Provider Internal Medicine
DX: I10 Essential (primary) hypertension (principal)
CPT/HCPCS: 36415; 80048

== ENCOUNTER 2023-08-31 08:08 | Outpatient (AMB) | payer OTHER, SELFPAY ==
[2023-08-31 08:33] LABS: Prothrombin Time Whole Bld POC 38.3 sec (11.1-13.5); ~PT, ~INR - Anti Coag Clinic 3.2 (0.9-1.1)
--- NOTE | 2023-08-31 09:09 | MHC.OFFVISCO ---
Intake Intake Visit Reasons: Anticoagulation Allergies No Known Drug Allergies [NO KNOWN DRUG ALLERGIES] Allergy (Mild, Verified 08/31/23 08:28) NONE Medication List - Last Reconciled 08/31/23 by Yi Briggs RN albuterol sulfate 90 mcg/actuation (ProAir HFA) 2 puffs inhalation Q4-6H PRN fluoride (sodium) 1.1% (PreviDent 5000 Booster Plus) dental BID fluticasone propionate 110 mcg/actuation (Flovent HFA) 1 puff PO BID gabapentin 300 mg PO TID lisinopril 10 mg PO DAILY 30 days oxycodone 5 mg PO Q8H PRN rosuvastatin 5 mg PO BEDTIME sildenafil (Viagra) 100 mg PO DAILY PRN tamsulosin 0.4 mg PO DAILY warfarin 7.5 mg See Protocol PO DAILY@1800 Nursing Note INR:3.2 NOT in therapeutic range. WARFARIN DOSE WAS DECREASED SAT AND SUN IN HOPES TO HAVE INR CLOSER TO 2.5 IT WAS NOT, RESULTS FAXED TO DENTIST OF PT INR RESULTS AND PLAN OF CARE TO POSSIBILY HOLD TODAY'S WARFARIN IF THE CLEANING IS TO BE PERFORMED, IF CLEANING NOT TO BE PERFORMED THE PATIENT WILL ONLY TAKE 5MG TODAY, HE HAS ANOTHER PROCEDURE 09/08/23 A DIAGNOSTIC HIP INJECTION TO BE DONE VIA PAIN CLINIC UNDER LOCAL ANESTHESIA, HE IS TO HOLD WARFARIN 5 DAYS STARTING THIS Thursday09/03/23 AND TO START LOVENOX 09/04/23 PER MD LAST DOSE OF LOVNENOX IN AM TO RESUME WARFARIN AND LOVENOX PER MD- CALL TO PAIN CLINIC FOR ORDERS TO WHEN THE PT CAN START EITHER ONE AND TO CONFIRM INSTRUCTIONS. FAX SENT TO DENTAL CLINIC WITH INR, PLAN OF CARE AND UPCOMING UPDATE THAT PT HAS ANOTHER PROCEDURE HE IS PREPPING FOR Medications and supplements reviewed DENIES ANY S/SX OF BLEEDING OR CLOTTING Bleeding, bruising, clotting discussed Nutritional guidance given - AVOID GREENS AFTER THE PROCEDURE UNTIL INR 2.5 OR GREATER Dose: HOLD TODAY IF CLEANING DONE THEN 5MG TODAY 7.5MG UNITL 5 DAY HOLD WITH LOVENOX BRIDGE PER MD ORDERS F/U INR: 09/08/23 MORNING OF HIP INJECTION Patient verbalizes understanding of instructions given T/C TO PCP OFFICE WITH PT STATUS AND REQUEST FOR LOVENOX ORDERS, SPOKE WITH NURSE BARON WHO WILL CONVEY MSG TO DR KRAMER'S TEAM. PER PAIN CLINIC NURSE LEX: PT TO HOLD WARFARIN X 5 DAYS AND RESUME ANTICOAGULANTS 24 HOUR AFTER THE PROCEDURE Anti-Coag Initial Assessment Social Hx Patient Tobacco Use Status: Never used Tobacco alcohol intake: former Alcohol intake frequency: does not drink Coding Level of Care Code Est Patient Level 2 Diagnoses Current use of anticoagulant therapy Z79.01 Comment DEALING WITH PROCEDURES 1 THIS WEEK AND NEXT Assessment & Plan Assessment & Plan (1) Current use of anticoagulant therapy: Code(s): Z79.01 - research study assistant (current) use of anticoagulants Category: Medical
--- NOTE | 2023-09-01 12:45 | MHC.OFFVISCO ---
Intake Intake Visit Reasons: Anticoagulation Allergies No Known Drug Allergies [NO KNOWN DRUG ALLERGIES] Allergy (Mild, Verified 08/31/23 08:28) NONE Medication List - Last Reconciled 08/31/23 by Yi Briggs RN albuterol sulfate 90 mcg/actuation (ProAir HFA) 2 puffs inhalation Q4-6H PRN fluoride (sodium) 1.1% (PreviDent 5000 Booster Plus) dental BID fluticasone propionate 110 mcg/actuation (Flovent HFA) 1 puff PO BID gabapentin 300 mg PO TID lisinopril 10 mg PO DAILY 30 days oxycodone 5 mg PO Q8H PRN rosuvastatin 5 mg PO BEDTIME sildenafil (Viagra) 100 mg PO DAILY PRN tamsulosin 0.4 mg PO DAILY warfarin 7.5 mg See Protocol PO DAILY@1800 Nursing Note pt came to clinic 08/31/23 for INR check before deep dental cleaning INR 3.2 rangeg 2.5-3.0- warfarin dose was decreased over the weekend from 7.5mg sat and sun to 5mg sat and sun results faxed to [facility] Dentist with explanation of warfarin dosing and INR and that he could hold today's dose if he should gp through with the cleaning If dental cleaning is canceled pt will take only 5mg instead of 7.5mg Pt is to have a right hip joint diagnostic injection next week 09/08/23 He has received instructions from Dr Sweeney office doing the procedure. t/c to pain clinic service: this nurse spoke with Bre GOMES regarding anticoagulation dosing: Hold warfarin x 5 days, no nsaids 24 hours before, can resume warfarin and lovenox( if bridging) 24 hours after, and to check INR 09/08/23 morning of the procedure Call placed to PCP for request of lovenox bridge In meantime omg or 5mg pending dental, then 7.5mg thu x 5 days, then start lovenox thursday, last dose of lovenox Thursday morning procedure Thursday, resume warfarin and if bridging lovenox 09/09, avoid greens after procedure until INR greater than 2.5 , resume usual dose 7.5mg because INR has been trending higher. f/u INR 09/11/23 for warfarin booster dose. Anti-Coag Initial Assessment Social Hx Patient Tobacco Use Status: Never used Tobacco alcohol intake: former Alcohol intake frequency: does not drink Coding Level of Care Code Est Patient Level 1 Diagnoses Current use of anticoagulant therapy Z79.01 Comment to add to yesterday's visit - it was accidently erased Assessment & Plan Assessment & Plan (1) Current use of anticoagulant therapy: Code(s): Z79.01 - residential (current) use of anticoagulants Category: Medical
== END 2023-08-31 09:22 | disposition home or self-care (01) ==
LOC: HO.ACS 08:08
PROVIDERS: PCP Internal Medicine; Visit Provider Internal Medicine
DX: Z79.01 Long term (current) use of anticoagulants (principal)

== ENCOUNTER → 2023-08-31 08:08 | Outpatient (BNVA) | payer OTHER, SELFPAY | PROVIDERS: PCP Internal Medicine; Visit Provider Internal Medicine | DX: I26.99 Other pulmonary embolism without acute cor pulmonale (principal); I82.409 Acute embolism and thrombosis of unspecified deep veins of unspecified lower extremity; Z79.01 Long term (current) use of anticoagulants; Z51.81 Encounter for therapeutic drug level monitoring | CPT/HCPCS: 85610; 99211; 99212 ==

== ENCOUNTER 2023-09-08 06:08 | Outpatient (REF) | payer OTHER, SELFPAY ==
--- NOTE | ~2023-09-08 | FL_ITS ---
EXAMINATION: XR FLUOROSCOPY WITH IMAGES CLINICAL INFORMATION: Pain in right hip. Right hip injection. COMPARISON: None available. TECHNIQUE: Fluoroscopy Supervised By: Dr. Myles Sweeney. Fluoroscopy Time: 0.2 minutes. Cumulative Dose: 10.1 mGy. DAP: 0.175 Gycm2. Images: 2. FINDINGS: Images demonstrate needle placement and contrast injection of the right hip joint. FL/FL guidance in treatment room IMPRESSION: Fluoroscopy guidance for pain management procedure.
== END 2023-09-08 06:09 | disposition home or self-care (01) ==
LOC: CF 06:08
PROVIDERS: Visit Provider Anesthesiology
DX: M16.11 Unilateral primary osteoarthritis, right hip (principal); M46.1 Sacroiliitis, not elsewhere classified; M53.3 Sacrococcygeal disorders, not elsewhere classified; G58.8 Other specified mononeuropathies; I26.99 Other pulmonary embolism without acute cor pulmonale; I82.409 Acute embolism and thrombosis of unspecified deep veins of unspecified lower extremity; Z51.81 Encounter for therapeutic drug level monitoring; Z79.01 Long term (current) use of anticoagulants
CPT/HCPCS: 20610; 85610; 99211; J2795; Q9967

== ENCOUNTER 2023-09-08 08:15 | Outpatient (AMB) | payer OTHER, SELFPAY ==
[2023-09-08 08:28] LABS: ~PT, ~INR - Anti Coag Clinic 1.2 (0.9-1.1)
--- NOTE | 2023-09-08 08:33 | MHC.OFFVISCO ---
Intake Intake Visit Reasons: Anticoagulation Allergies No Known Drug Allergies [NO KNOWN DRUG ALLERGIES] Allergy (Mild, Verified 08/31/23 08:28) NONE Nursing Note pt off warfarin x 5 days for diagnostic hip injection procedure today - he held lovenox 36 hours prior results called to nurse Akhtar in pain management this am, pt understands he can start warfarin and lovenox 24 hours after the procedure with 1 day booster dose only because previous INRs had been slightly super therapeutic, it was also explained that to Giovana pt need ride voucher for [employer] transportation ride home. INR 1.2 expected out of therapeutic range Medications and supplements reviewed Patient status: offers no complaints - howver hopes to have pain relief Medications or supplements: just anticoagulation changes at this time Diet: good Denies any signs and symptoms of bleeding or clotting or unusual bruising Bleeding, bruising, clotting discussed Nutritional guidance given: avoid greens until INR 2.0 Dose: held x 5 days resume 24 hours after the proceudre with 1 booster dose 10mg then resume 7.5mg daily F/U INR Date: 09/14/23 after the weekend and being back on warfarin x 4 days he is out of lovenox - will call PCP with INR ressults and for lovenox refill? -spoke with nurse Rivas to convey msg to Dr Camargo team Patient verbalizing understanding of instructions given. Anti-Coag Initial Assessment Social Hx Patient Tobacco Use Status: Never used Tobacco alcohol intake: former Alcohol intake frequency: does not drink Coding Level of Care Code Est Patient Level 1 Diagnoses Current use of anticoagulant therapy Z79.01 Comment call to pain clinic and pcp Results AMB INR Fingerstick AMB INR Fingerstick 1.2 Last Edit by Yi Briggs RN on 09/08/23 08:28 delayed interfacing manual entry Assessment & Plan Assessment & Plan (1) Current use of anticoagulant therapy: Code(s): Z79.01 - detention (current) use of anticoagulants Category: Medical
== END 2023-09-08 08:57 | disposition home or self-care (01) ==
LOC: HO.ACS 08:15
PROVIDERS: PCP Internal Medicine; Visit Provider Internal Medicine
DX: Z79.01 Long term (current) use of anticoagulants (principal)

== ENCOUNTER 2023-09-08 10:16 | Outpatient (AMB) | payer OTHER, SELFPAY ==
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
[2023-09-08 11:31] VITALS: BP 140/82; PULSE 86; RESP 18; O2SAT 94
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
[2023-09-08 11:32] VITALS: BP 130/80; PULSE 80; RESP 16; O2SAT 97
== END 2023-09-08 11:36 | disposition home or self-care (01) ==
LOC: HO.PMCPRC 10:16
PROVIDERS: PCP Internal Medicine; Visit Provider Anesthesiology
DX: G58.8 Other specified mononeuropathies (principal); M46.1 Sacroiliitis, not elsewhere classified; M53.3 Sacrococcygeal disorders, not elsewhere classified; G89.29 Other chronic pain; M25.551 Pain in right hip; M16.11 Unilateral primary osteoarthritis, right hip
CPT/HCPCS: 20610; 77002

== ENCOUNTER 2023-09-14 09:34 | Outpatient (AMB) | payer OTHER, SELFPAY ==
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
[2023-09-14 10:42] VITALS: BP 130/88; PULSE 65; RESP 18; O2SAT 96; BMI 28.6
== END 2023-09-14 11:00 | disposition home or self-care (01) ==
PROVIDERS: PCP Internal Medicine; Visit Provider Anesthesiology
DX: G89.29 Other chronic pain (principal); M46.1 Sacroiliitis, not elsewhere classified; M53.3 Sacrococcygeal disorders, not elsewhere classified; G58.8 Other specified mononeuropathies; M25.551 Pain in right hip; M16.11 Unilateral primary osteoarthritis, right hip
CPT/HCPCS: 99213

== ENCOUNTER → 2023-09-14 09:34 | Outpatient (BNVA) | payer OTHER, SELFPAY | PROVIDERS: PCP Internal Medicine; Visit Provider Anesthesiology | DX: M46.1 Sacroiliitis, not elsewhere classified (principal); M53.3 Sacrococcygeal disorders, not elsewhere classified; M25.551 Pain in right hip; M16.11 Unilateral primary osteoarthritis, right hip; G58.8 Other specified mononeuropathies; G89.29 Other chronic pain; I26.99 Other pulmonary embolism without acute cor pulmonale; I82.409 Acute embolism and thrombosis of unspecified deep veins of unspecified lower extremity | CPT/HCPCS: 85610; 99211; 99212 ==

== ENCOUNTER 2023-09-14 11:54 | Outpatient (AMB) | payer OTHER, SELFPAY ==
[2023-09-14 12:00] LABS: Prothrombin Time Whole Bld POC 14.3 sec (11.1-13.5); ~PT, ~INR - Anti Coag Clinic 1.2 (0.9-1.1)
--- NOTE | 2023-09-14 12:14 | MHC.OFFVISCO ---
Intake Intake Visit Reasons: Anticoagulation Allergies No Known Drug Allergies [NO KNOWN DRUG ALLERGIES] Allergy (Mild, Verified 09/14/23 11:55) NONE Medication List - Last Reconciled 09/14/23 by Yi Briggs RN albuterol sulfate 90 mcg/actuation (ProAir HFA) 2 puffs inhalation Q4-6H PRN enoxaparin mg subcut Q12H fluoride (sodium) 1.1% (PreviDent 5000 Booster Plus) dental BID fluticasone propionate 110 mcg/actuation (Flovent HFA) 1 puff PO BID gabapentin 300 mg PO TID lisinopril 10 mg PO DAILY 30 days oxycodone 5 mg PO Q8H PRN rosuvastatin 5 mg PO BEDTIME sildenafil (Viagra) 100 mg PO DAILY PRN tamsulosin 0.4 mg PO DAILY warfarin 7.5 mg See Protocol PO DAILY@1800 Nursing Note EXPECTED LOW INR 1.2 out of therapeutic range S/P PROCEDURE SHOULD NOT BE THIS LOW RESUMED WARFARIN DAY AFTER THE PROCEDURE, Medications and supplements reviewed Patient status: STATES HIS HIP PAIN IS GONE, STATES HE STARTED HIS WARFARIN AFTER THE PROCEDURE Medications or supplements: NO CHANGES Diet: GOOD Denies any signs and symptoms of bleeding or clotting or unusual bruising Bleeding, bruising, clotting discussed Nutritional guidance given: AVOID GREENS 3 DAYS Dose: 10MG TODAY 7.5MG E AND WED WITH LOVENOX BRIDGE 12 HOURS APART TO START TODAY F/U INR Date : 09/17/23Thursday?? Patient verbalizing understanding of instructions given. ATTEMPTED TO CALL PCP OUT OF EXPANSE MET WORK - [facility] PHONE LINES NOT WORKING WILL ATTEMPT TO CALL PCP WHEN PHONE LINES ARE WORKING Anti-Coag Initial Assessment Social Hx Patient Tobacco Use Status: Never used Tobacco alcohol intake: former Alcohol intake frequency: does not drink Coding Level of Care Code Est Patient Level 1 Diagnoses Current use of anticoagulant therapy Z79.01 Results AMB INR Fingerstick AMB INR Fingerstick 1.2 Last Edit by Yi Briggs RN on 09/14/23 11:59 INTERFACE EXPANSE FAILURE ONGOING MANUAL ENTRY ONGOING Assessment & Plan Assessment & Plan (1) Current use of anticoagulant therapy: 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
== END 2023-09-14 14:29 | disposition home or self-care (01) ==
PROVIDERS: PCP Internal Medicine; Visit Provider Internal Medicine
DX: Z79.01 Long term (current) use of anticoagulants (principal)

== ENCOUNTER 2023-09-17 14:51 | Outpatient (AMB) | payer OTHER, SELFPAY ==
[2023-09-17 14:57] LABS: Prothrombin Time Whole Bld POC 14.5 sec (11.1-13.5); ~PT, ~INR - Anti Coag Clinic 1.2 (0.9-1.1)
--- NOTE | 2023-09-17 15:12 | MHC.OFFVISCO ---
Intake Intake Visit Reasons: Anticoagulation Allergies No Known Drug Allergies [NO KNOWN DRUG ALLERGIES] Allergy (Mild, Verified 09/17/23 14:51) NONE Medication List - Last Reconciled 09/17/23 by Zainab Sanders RN albuterol sulfate 90 mcg/actuation (ProAir HFA) 2 puffs inhalation Q4-6H PRN enoxaparin mg See Protocol subcut Q12H fluoride (sodium) 1.1% (PreviDent 5000 Booster Plus) dental BID fluticasone propionate 110 mcg/actuation (Flovent HFA) 1 puff PO BID gabapentin 300 mg PO TID lisinopril 10 mg PO DAILY 30 days oxycodone 5 mg PO Q8H PRN rosuvastatin 5 mg PO BEDTIME sildenafil (Viagra) 100 mg PO DAILY PRN tamsulosin 0.4 mg PO DAILY warfarin 7.5 mg See Protocol PO DAILY@1800 Nursing Note Amb to ACS feeling well Medications and supplements reviewed No new changes in health, diet, medications, or supplements Denies any unusual signs and symptoms of bruising, bleeding Denies any new Chest pain, SOB, or clotting pt s/p hip injection and low INR 09/14 from warfarin hold INR: 1.2 same as 09/14 sts he took the extra dosing on Thursday, no greens INterpretter available for instructions, pt limited Yoruba however is able to follow dosing instructions Nutritional guidance given: no greens until seen, reds to raise and reviewed at length food choices, amrit, papaya, melons, grapes, sweet potatoes Dose:increase dose today and tomorrow to 10mg then on Thursday usual 7.5mg daily dosing we will call if Dr orders any lovenox F/U INR:Friday 09/21 Patient verbalizes understanding of instructions given with accurate read back/ teach back of dosing critical INR 1.4 reported to [facility] Critical results line, spoke with Buffy GOMES dosing plan and brief history given, ?lovenox, F/U thursday Anti-Coag Initial Assessment Social Hx Patient Tobacco Use Status: Never used Tobacco alcohol intake: former Alcohol intake frequency: does not drink Coding Level of Care Code Est Patient Level 2 Diagnoses Current use of anticoagulant therapy Z79.01 Time Spent (min) 30 Assessment & Plan Assessment & Plan (1) Current use of anticoagulant therapy: Code(s): Z79.01 - [facility] (current) use of anticoagulants Category: Medical
== END 2023-09-17 15:33 | disposition home or self-care (01) ==
LOC: HO.ACS 14:51
PROVIDERS: PCP Internal Medicine; Visit Provider Internal Medicine
DX: Z79.01 Long term (current) use of anticoagulants (principal)

== ENCOUNTER → 2023-09-17 14:51 | Outpatient (BNVA) | payer OTHER, SELFPAY | PROVIDERS: PCP Internal Medicine; Visit Provider Internal Medicine | DX: I26.99 Other pulmonary embolism without acute cor pulmonale (principal); I82.409 Acute embolism and thrombosis of unspecified deep veins of unspecified lower extremity; Z79.01 Long term (current) use of anticoagulants; Z51.81 Encounter for therapeutic drug level monitoring | CPT/HCPCS: 85610; 99212 ==

== ENCOUNTER 2023-09-21 14:46 | Outpatient (AMB) | payer OTHER, SELFPAY ==
--- NOTE | 2023-09-21 15:15 | MHC.OFFVISCO ---
Intake Intake Visit Reasons: Anticoagulation Allergies No Known Drug Allergies [NO KNOWN DRUG ALLERGIES] Allergy (Mild, Verified 09/21/23 14:58) NONE Medication List - Last Reconciled 09/21/23 by Yi Briggs RN albuterol sulfate 90 mcg/actuation (ProAir HFA) 2 puffs inhalation Q4-6H PRN enoxaparin mg See Protocol subcut Q12H fluoride (sodium) 1.1% (PreviDent 5000 Booster Plus) dental BID fluticasone propionate 110 mcg/actuation (Flovent HFA) 1 puff PO BID gabapentin 300 mg PO TID lisinopril 10 mg PO DAILY 30 days oxycodone 5 mg PO Q8H PRN rosuvastatin 5 mg PO BEDTIME sildenafil (Viagra) 100 mg PO DAILY PRN tamsulosin 0.4 mg PO DAILY warfarin 7.5 mg See Protocol PO DAILY@1800 Nursing Note INR: 2.5 in therapeutic range Medications and supplements reviewed PT states his hip pain is much less and stopped the gabapentin he is having a deep root cleaning and needs INR 2.5 or less, his previous INR s have been sub therpeutic post hip injection and today finally therapeutic with boosted dose and now need another lower INR for the dental procedure Denies any signs and symptoms of bleeding or bruising or clotting. Bleeding, bruising, clotting discussed Nutritional guidance given eat a mix of fruits and vegetables Dose: 10mg x mon wed this week and 7.5mg all other days then 5mg sun mon and chk INR 09/29/23 F/U INR: 09/29/23 Patient verbalizes understanding of instructions given Anti-Coag Initial Assessment Social Hx Patient Tobacco Use Status: Never used Tobacco alcohol intake: former Alcohol intake frequency: does not drink Coding Level of Care Code Est Patient Level 1 Diagnoses Current use of anticoagulant therapy Z79.01 Results AMB INR Fingerstick AMB INR Fingerstick 2.5 Last Edit by Yi Briggs RN on 09/21/23 15:03 MANUAL ENTRY Assessment & Plan Assessment & Plan (1) Current use of anticoagulant therapy: 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
[2023-09-21 20:37] LABS: Prothrombin Time Whole Bld POC 29.7 sec (11.1-13.5); ~PT, ~INR - Anti Coag Clinic 2.5 (0.9-1.1)
== END 2023-09-21 15:19 | disposition home or self-care (01) ==
LOC: HO.ACS 14:46
PROVIDERS: PCP Internal Medicine; Visit Provider Internal Medicine
DX: Z79.01 Long term (current) use of anticoagulants (principal)

== ENCOUNTER → 2023-09-21 14:46 | Outpatient (BNVA) | payer OTHER, SELFPAY | PROVIDERS: PCP Internal Medicine; Visit Provider Internal Medicine | DX: I26.99 Other pulmonary embolism without acute cor pulmonale (principal); Z79.01 Long term (current) use of anticoagulants; Z51.81 Encounter for therapeutic drug level monitoring | CPT/HCPCS: 85610; 99211 ==

== ENCOUNTER 2023-09-29 08:02 | Outpatient (AMB) | payer OTHER, SELFPAY ==
[2023-09-29 08:09] LABS: Prothrombin Time Whole Bld POC 44.9 sec (11.1-13.5); ~PT, ~INR - Anti Coag Clinic 3.7 (0.9-1.1)
--- NOTE | 2023-09-29 08:16 | MHC.OFFVISCO ---
Intake Intake Visit Reasons: Anticoagulation Allergies No Known Drug Allergies [NO KNOWN DRUG ALLERGIES] Allergy (Mild, Verified 09/29/23 08:04) NONE Medication List - Last Reconciled 09/29/23 by Zainab Sanders RN albuterol sulfate 90 mcg/actuation (ProAir HFA) 2 puffs inhalation Q4-6H PRN fluoride (sodium) 1.1% (PreviDent 5000 Booster Plus) dental BID fluticasone propionate 110 mcg/actuation (Flovent HFA) 1 puff PO BID gabapentin 300 mg PO TID lisinopril 10 mg PO DAILY 30 days oxycodone 5 mg PO Q8H PRN rosuvastatin 5 mg PO BEDTIME sildenafil (Viagra) 100 mg PO DAILY PRN tamsulosin 0.4 mg PO DAILY warfarin 7.5 mg See Protocol PO DAILY@1800 Nursing Note Amb to [facility] feeling well, is scheduled today for deep dental cleaning today and needs INR 2.5 or less Medications and supplements reviewed No changes in health, diet, medications, or supplements Denies any unusual signs and symptoms of bruising, bleeding Denies any new Chest pain, SOB, or clotting INR: 3.7 above therapeutic range, denies ETOH, pt is not sure why his INR has been all over the place Nutritional guidance given: greens today then balance greens and reds in diet Dose: hold warfarin today then follow dosing sheet as weekly dosing decreased to 5mg x 2 days and 7.5mg x 5 days; F/U INR:1 week, also instructed to keep us informed of dental appt as he may not have his cleaning today Patient verbalizes understanding of instructions given with accurate read back/ teach back of dosing Anti-Coag Initial Assessment Social Hx Patient Tobacco Use Status: Never used Tobacco alcohol intake: former Alcohol intake frequency: does not drink Questionnaires HAS-BLED Does the patient had uncontrolled Hypertension?: No Does the patient have renal disease?: No Does the patient have liver disease?: Yes (hep c) Does the patient have a history of stroke?: No Has the patient had major bleeding or predisposition to bleeding?: Yes Does the patient have labile INRs?: Yes Is the patient over 65 years of age?: Yes Is the patient on medications that gives them a predisposition to bleeding?: Yes Does the patient use alcohol?: No HAS-BLED Score: 5 CHADSVASC Age: 66-74 Gender: Male Does the patient have a history of CHF?: No Does the patient have a history of Hypertension?: Yes Does the patient have a history of Stroke/TIA/Thromboembolism?: Yes Does the patient have a history of Vascular Disease (prior [place], PAD or aortic plaque)?: No Does the patient have a history of Diabetes?: No CHADS VACS Score: 4 Natalie Prediction Score Rsk VTE Active Cancer: No Previous VTE, excluding superficial vein thrombosis: Yes Reduced mobility: No Already known Thrombophilic Condition: Yes With-in last month Trauma and/or Surgery: No Elderly 70 year or older: No Heart and/or Respiratory Failure: No Acute Myocardial infarction and/or Ischemic Stroke: No Acute Infection and/or Rheumatologic Disorder: No Obesity (BMI 30 or greater): No Ongoing Hormonal Treatment: No Score: 6 Natalie Score less than 4; Low Risk of VTE Natalie Score 4 or greater; High Risk of VTE Coding Level of Care Code Est Patient Level 2 Diagnoses Current use of anticoagulant therapy Z79.01 Time Spent (min) 30 Assessment & Plan Assessment & Plan (1) Current use of anticoagulant therapy: Code(s): Z79.01 - USP (current) use of anticoagulants Category: Medical
== END 2023-09-29 08:52 | disposition home or self-care (01) ==
LOC: HO.ACS 08:02
PROVIDERS: PCP Internal Medicine; Visit Provider Internal Medicine
DX: Z79.01 Long term (current) use of anticoagulants (principal)

== ENCOUNTER → 2023-09-29 08:02 | Outpatient (BNVA) | payer OTHER, SELFPAY | PROVIDERS: PCP Internal Medicine; Visit Provider Internal Medicine | DX: I26.99 Other pulmonary embolism without acute cor pulmonale (principal); I82.409 Acute embolism and thrombosis of unspecified deep veins of unspecified lower extremity; Z79.01 Long term (current) use of anticoagulants; Z51.81 Encounter for therapeutic drug level monitoring | CPT/HCPCS: 85610; 99212 ==

== ENCOUNTER 2023-10-20 08:12 | Outpatient (AMB) | payer OTHER, SELFPAY ==
--- NOTE | 2023-10-20 08:17 | MHC.OFFVISCO ---
Intake Intake Visit Reasons: Anticoagulation Allergies No Known Drug Allergies [NO KNOWN DRUG ALLERGIES] Allergy (Mild, Verified 10/20/23 08:13) NONE Medication List - Last Reconciled 10/20/23 by Trini Graham RN albuterol sulfate 90 mcg/actuation (ProAir HFA) 2 puffs inhalation Q4-6H PRN fluoride (sodium) 1.1% (PreviDent 5000 Booster Plus) dental BID fluticasone propionate 110 mcg/actuation (Flovent HFA) 1 puff PO BID gabapentin 300 mg PO TID lisinopril 10 mg PO DAILY 30 days oxycodone 5 mg PO Q8H PRN rosuvastatin 5 mg PO BEDTIME sildenafil (Viagra) 100 mg PO DAILY PRN tamsulosin 0.4 mg PO DAILY warfarin 7.5 mg See Protocol PO DAILY@1800 Nursing Note INR: 2.5- in therapeutic range of 2.5-3 Medications and supplements reviewed- no changes No changes in health, diet, medications, or supplements, Denies any signs and symptoms of bleeding or bruising or clotting. Bleeding, bruising, clotting discussed Nutritional guidance given - no greens for 2 days, eat a red today Dose: 5mg x 2, 7.5mg x 5 F/U INR: 10/29/23 Patient verbalizes understanding of instructions given [facility] [place] [facility] [place] used for visit. pt [facility] has dental cleaning [facility] at [facility]. pt [facility] leaving for [place] on 10/30/23- 11/28/23 Anti-Coag Initial Assessment Social Hx Patient Tobacco Use Status: Never used Tobacco alcohol intake: former Alcohol intake frequency: does not drink Coding Level of Care Code Est Patient Level 1 Diagnoses Current use of anticoagulant therapy Z79.01 Assessment & Plan Assessment & Plan (1) Current use of anticoagulant therapy: Code(s): Z79.01 - USP (current) use of anticoagulants Category: Medical
[2023-10-20 08:19] LABS: Prothrombin Time Whole Bld POC 30.1 sec (11.1-13.5); ~PT, ~INR - Anti Coag Clinic 2.5 (0.9-1.1)
== END 2023-10-20 08:28 | disposition home or self-care (01) ==
LOC: HO.ACS 08:12
PROVIDERS: PCP Internal Medicine; Visit Provider Internal Medicine
DX: Z79.01 Long term (current) use of anticoagulants (principal)

== ENCOUNTER → 2023-10-20 08:12 | Outpatient (BNVA) | payer OTHER, SELFPAY | PROVIDERS: PCP Internal Medicine; Visit Provider Internal Medicine | DX: I26.99 Other pulmonary embolism without acute cor pulmonale (principal); I82.409 Acute embolism and thrombosis of unspecified deep veins of unspecified lower extremity; Z79.01 Long term (current) use of anticoagulants; Z51.81 Encounter for therapeutic drug level monitoring | CPT/HCPCS: 85610; 99211 ==

== ENCOUNTER 2023-10-27 09:29 | Outpatient (REF) | payer OTHER, SELFPAY ==
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
== END 2023-10-27 09:30 | disposition home or self-care (01) ==
LOC: HO.HHCX 09:29
PROVIDERS: Visit Provider Emergency Medicine
DX: M54.2 Cervicalgia (principal)
CPT/HCPCS: 72040

== ENCOUNTER 2023-10-29 08:17 | Outpatient (AMB) | payer OTHER, SELFPAY ==
--- NOTE | 2023-10-29 08:24 | MHC.OFFVISCO ---
Intake Intake Visit Reasons: Anticoagulation Allergies No Known Drug Allergies [NO KNOWN DRUG ALLERGIES] Allergy (Mild, Verified 10/29/23 08:18) NONE Medication List - Last Reconciled 10/29/23 by Yi Briggs RN albuterol sulfate 90 mcg/actuation (ProAir HFA) 2 puffs inhalation Q4-6H PRN fluoride (sodium) 1.1% (PreviDent 5000 Booster Plus) dental BID fluticasone propionate 110 mcg/actuation (Flovent HFA) 1 puff PO BID gabapentin 300 mg PO TID lisinopril 10 mg PO DAILY 30 days oxycodone 5 mg PO Q8H PRN rosuvastatin 5 mg PO BEDTIME sildenafil (Viagra) 100 mg PO DAILY PRN tamsulosin 0.4 mg PO DAILY tizanidine 2 mg PO Q6H PRN warfarin 7.5 mg See Protocol PO DAILY@1800 Nursing Note INR: 2.6 in therapeutic range Medications and supplements reviewed No changes in health, diet, medications, or supplements, Denies any signs and symptoms of bleeding or bruising or clotting. Bleeding, bruising, clotting discussed Nutritional guidance given Dose: 5mg x 2 days 7.5mg x 5 days F/U INR: 1 month after [place] Patient verbalizes understanding of instructions given Anti-Coag Initial Assessment Social Hx Patient Tobacco Use Status: Never used Tobacco alcohol intake: former Alcohol intake frequency: does not drink Coding Level of Care Code Est Patient Level 1 Diagnoses Current use of anticoagulant therapy Z79.01 Results AMB INR Fingerstick AMB INR Fingerstick 2.6 Last Edit by Yi Briggs RN on 10/29/23 08:24 manual entry Assessment & Plan Assessment & Plan (1) Current use of anticoagulant therapy: Code(s): Z79.01 - FDC (current) use of anticoagulants Category: Medical
[2023-10-29 08:32] LABS: Prothrombin Time Whole Bld POC 31.6 sec (11.1-13.5); ~PT, ~INR - Anti Coag Clinic 2.6 (0.9-1.1)
== END 2023-10-29 08:28 | disposition home or self-care (01) ==
LOC: HO.ACS 08:17
PROVIDERS: PCP Internal Medicine; Visit Provider Internal Medicine
DX: Z79.01 Long term (current) use of anticoagulants (principal)

== ENCOUNTER → 2023-10-29 08:17 | Outpatient (BNVA) | payer OTHER, SELFPAY | PROVIDERS: PCP Internal Medicine; Visit Provider Internal Medicine | DX: I26.99 Other pulmonary embolism without acute cor pulmonale (principal); I82.409 Acute embolism and thrombosis of unspecified deep veins of unspecified lower extremity; Z79.01 Long term (current) use of anticoagulants; Z51.81 Encounter for therapeutic drug level monitoring | CPT/HCPCS: 85610; 99211 ==

== ENCOUNTER 2023-12-02 15:09 | Outpatient (AMB) | payer OTHER, SELFPAY ==
[2023-12-02 15:16] LABS: Prothrombin Time Whole Bld POC 35.3 sec (11.1-13.5); ~PT, ~INR - Anti Coag Clinic 2.9 (0.9-1.1)
--- NOTE | 2023-12-02 15:18 | MHC.OFFVISCO ---
Intake Intake Visit Reasons: Anticoagulation Allergies No Known Drug Allergies [NO KNOWN DRUG ALLERGIES] Allergy (Mild, Verified 12/02/23 15:10) NONE Medication List - Last Reconciled 12/02/23 by Bre Hayes RN albuterol sulfate 90 mcg/actuation (ProAir HFA) 2 puffs inhalation Q4-6H PRN fluoride (sodium) 1.1% (PreviDent 5000 Booster Plus) dental BID fluticasone propionate 110 mcg/actuation (Flovent HFA) 1 puff PO BID gabapentin 300 mg PO TID lisinopril 10 mg PO DAILY 30 days oxycodone 5 mg PO Q8H PRN rosuvastatin 5 mg PO BEDTIME sildenafil (Viagra) 100 mg PO DAILY PRN tamsulosin 0.4 mg PO DAILY tizanidine 2 mg PO Q6H PRN warfarin 7.5 mg See Protocol PO DAILY@1800 Nursing Note NO CP,SOB,DIET/MED CHANGES,FALLS OR SX OF BLEEDING. CONTINUE PRESENT DOSE AND FOLLOW-UP IN 4 WEEKS. GOOD UNDERSTANDING OF DOSING INSTR. Anti-Coag Initial Assessment Social Hx Patient Tobacco Use Status: Never used Tobacco alcohol intake: former Alcohol intake frequency: does not drink Coding Level of Care Code Est Patient Level 1 Diagnoses Current use of anticoagulant therapy Z79.01 Results AMB INR Fingerstick AMB INR Fingerstick 2.9 Last Edit by Bre Hayes RN on 12/02/23 15:17 Assessment & Plan Assessment & Plan (1) Current use of anticoagulant therapy: Code(s): Z79.01 - USP (current) use of anticoagulants Category: Medical
== END 2023-12-02 15:20 | disposition home or self-care (01) ==
LOC: HO.ACS 15:09
PROVIDERS: PCP Internal Medicine; Visit Provider Internal Medicine
DX: Z79.01 Long term (current) use of anticoagulants (principal)

== ENCOUNTER → 2023-12-02 15:09 | Outpatient (BNVA) | payer OTHER, SELFPAY | PROVIDERS: PCP Internal Medicine; Visit Provider Internal Medicine | DX: I26.99 Other pulmonary embolism without acute cor pulmonale (principal); I82.409 Acute embolism and thrombosis of unspecified deep veins of unspecified lower extremity; Z51.81 Encounter for therapeutic drug level monitoring; Z79.01 Long term (current) use of anticoagulants | CPT/HCPCS: 85610; 99211 ==

== ENCOUNTER 2023-12-30 14:19 | Outpatient (AMB) | payer OTHER, SELFPAY ==
[2023-12-30 14:35] LABS: Prothrombin Time Whole Bld POC 39.5 sec (11.1-13.5); ~PT, ~INR - Anti Coag Clinic 3.3 (0.9-1.1)
--- NOTE | 2023-12-30 14:40 | MHC.OFFVISCO ---
Intake Intake Visit Reasons: Anticoagulation Allergies No Known Drug Allergies [NO KNOWN DRUG ALLERGIES] Allergy (Mild, Verified 12/30/23 14:30) NONE Nursing Note INR: 3.3 out of therapeutic range of 2.5-3 Medications and supplements reviewed No changes in health, diet, medications, or supplements, Denies any signs and symptoms of bleeding or bruising or clotting. 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
== END 2023-12-30 14:44 | disposition home or self-care (01) ==
LOC: HO.ACS 14:19
PROVIDERS: PCP Internal Medicine; Visit Provider Internal Medicine
DX: Z79.01 Long term (current) use of anticoagulants (principal)

== ENCOUNTER → 2023-12-30 14:19 | Outpatient (BNVA) | payer OTHER, SELFPAY | PROVIDERS: PCP Internal Medicine; Visit Provider Internal Medicine | DX: I26.99 Other pulmonary embolism without acute cor pulmonale (principal); I82.409 Acute embolism and thrombosis of unspecified deep veins of unspecified lower extremity; Z79.01 Long term (current) use of anticoagulants; Z51.81 Encounter for therapeutic drug level monitoring | CPT/HCPCS: 85610; 99211 ==

== ENCOUNTER 2024-01-01 19:18 | Outpatient (REF) | payer OTHER, SELFPAY | END 2024-01-01 19:19 | disposition home or self-care (01) | LOC: HO.HHCLNP 19:18 | PROVIDERS: Visit Provider Student in an Organized Health Care Education/Training Program | DX: J02.9 Acute pharyngitis, unspecified (principal) | CPT/HCPCS: 87070 ==

== ENCOUNTER 2024-01-14 07:43 | Outpatient (REF) | payer OTHER, SELFPAY ==
--- NOTE | ~2024-01-14 | US_ITS ---
EXAMINATION: US COMPLETE ABDOMEN WITH LIVER ELASTOGRAPHY CLINICAL INFORMATION: Hepatitis and hepatic fibrosis. COMPARISON: Abdominal ultrasound dated 12/23/2022. TECHNIQUE: Real-time imaging of the abdominal viscera. Noninvasive ultrasound liver fibrosis assessment is performed using [employer] Elast[employer] point quantification shear wave elastography (2D-SWE) with a C5-2 MHz transducer. Multiple elastography samples are obtained. FINDINGS: PANCREAS: Normal. The visualized pancreatic head and body are normal in appearance. The remainder of the pancreas is obscured from visualization by the overlying bowel gas. ABDOMINAL AORTA: The proximal, middle, and distal aortic segments are normal in caliber. INFERIOR VENA CAVA: Visualized portions are normal. LIVER: The liver demonstrates normal size, contour and increased echogenicity. No focal lesion or intrahepatic biliary duct dilatation. The right lobe measures 16.4 cm in length. The left lobe measures 11.6 cm in length. Portal flow is towards the liver (hepatopetal). Shear wave liver elastography median stiffness is 1.14 m/s (reference: normal median stiffness is 1.3 m/s or less). IQR/median stiffness to assess sampling precision is 0.08 (reference: good quality data set is IQR/median stiffness of 0.15 or less). GALLBLADDER: Surgically absent. COMMON BILE DUCT: Normal in caliber measuring 0.2 cm in diameter. RIGHT KIDNEY: Normal. No hydronephrosis. No renal calculi or focal parenchymal lesions. The kidney measures 11.6 cm in maximum dimension. At the interpolar aspect, a 2.0 cm benign, simple cyst is seen, for which no imaging follow-up is recommended. LEFT KIDNEY: Normal. No hydronephrosis. No renal calculi or focal parenchymal lesions. The kidney measures 12.0 cm in maximum dimension. At the lower pole, a 0.9 cm benign, simple cyst is seen, for which no imaging follow-up is recommended. SPLEEN: Normal. The spleen measures 11.0 cm in maximum dimension. FREE FLUID: None. US/US abdomen comp w elastography IMPRESSION: 1. There is generalized increase in hepatic echotexture, consistent with fatty infiltration or hepatocellular disease. Please correlate clinically. No focal hepatic mass or intrahepatic biliary dilatation is seen. 2. Liver elastography: Measurements are consistent with a high probability of normal liver stiffness. When compared with prior exam, there is a statistically significant decrease in liver stiffness (decrease at least 10%). 3. The gallbladder is surgically absent. REFERENCE: Society of Radiologists in Ultrasound Liver Stiffness Thresholds (2020): LIVER STIFFNESS THRESHOLDS: *Liver Stiffness equal or less than 1.3 m/s: High probability of being normal. *Liver Stiffness less than 1.7 m/s: In the absence of other known clinical signs, rules out compensated advanced chronic liver disease. *Liver Stiffness 1.7-2.1 m/s: Suggestive of compensated advanced chronic liver disease but need further test for confirmation. *Liver Stiffness over 2.1 m/s: Rules in compensated advanced chronic liver disease. *Liver Stiffness over 2.4 m/s: Suggestive of clinically significant portal hypertension. QUALITY OF DATA SET: *IQR/Median value equal or less than 0.15 implies a quality data set. *IQR/Median value over 0.15 implies a poor quality data set. SIGNIFICANT CHANGE FROM PRIOR EXAM: Significant change if liver stiffness measurement is 10% or greater from prior exam. OTHER CONSIDERATIONS: The stage of liver fibrosis may be overestimated in the setting of acute hepatitis, liver inflammation, elevated liver function tests, hepatic vascular congestion, obstructive cholestasis, non-fasting state, and infiltrative diseases such as amyloidosis and lymphoma. In some patients with NAFLD, the liver stiffness thresholds for compensated advanced chronic liver disease may be lower. In causes other than viral hepatitis and NAFLD, liver stiffness thresholds are not well established.
[2024-01-14 08:50] LABS: MANUAL DIFF FLAG NO
[2024-01-14 09:18] LABS: Basophils Percent Auto 0.5 % (0-2); Eosinophils Absolute Auto 0.3 X10*3/uL (0.0-0.4); Eosinophils Percent Auto 4.6 % (0-4); Hematocrit 42.5 % (42.0-52.0); Hemoglobin 14.3 g/dl (14.0-18.0); Imm Gran Abs Auto 0.01 X10*3/uL (0.00-0.03); Imm Gran Pct Auto 0.2 % (0.0-0.4); Lymphocytes Absolute Auto 2.9 X10*3/uL (1.2-4.9); Mean Corpuscular HGB Conc 33.6 g/dl (31.0-36.0); Mean Corpuscular Hemoglobin 29.5 pg (27.0-33.0); Mean Corpuscular Volume 87.8 fL (80.0-98.0); Mean Platelet Volume 9.8 fL (9.4-12.4); Monocytes Absolute Auto 0.5 X10*3/uL (0.1-1.2); Monocytes Percent Auto 8.5 % (2-11); Neutrophils Percent Auto 35.2 % (45-73); Platelet Count 214 X10*3/uL (160-400); Red Blood Count 4.84 X10*6/uL (4.60-5.80); White Blood Count 5.6 X10*3/uL (4.8-10.8)
[2024-01-14 09:38] LABS: Alanine Aminotransferase 33 U/L (0-40); Albumin Level 4.3 g/dL (3.5-5.0); Alkaline Phosphatase 61 U/L (39-117); Aspartate Amino Transferase 30 U/L (5-37); Bilirubin Direct 0.2 mg/dL (0.0-0.5); Bilirubin Total 0.5 mg/dL (0.0-1.0); Total Protein 7.7 g/dL (6.5-8.0)
[2024-01-18 12:53] LABS: Alpha Fetoprotein 2.6 ng/mL (<6.1)
[2024-01-21 16:44] LABS: FIB-ALT 29 U/L (9-46); FIB-Alpha-2-Macroglobulin 229 mg/dL (106-279); FIB-Apolipoprotein A1 145 mg/dL (94-176); FIB-GGT 61 U/L (3-70); FIB-Haptoglobin 95 mg/dL (43-212); FIB-Total Bilirubin 0.5 mg/dL (0.2-1.2); Liver Fibrosis Score 0.51; Liver Fibrosis Stage F2; Nec Inflam Act Grade A0-A1; Nec Inflam Act Score 0.18
== END 2024-01-14 07:44 | disposition home or self-care (01) ==
LOC: HO.US 07:43
PROVIDERS: PCP Internal Medicine; Visit Provider Internal Medicine
DX: K74.00 Hepatic fibrosis, unspecified (principal); Z86.19 Personal history of other infectious and parasitic diseases
CPT/HCPCS: 36415; 76700; 76981; 80076; 81596; 82105; 85025

== ENCOUNTER 2024-01-18 11:11 | Outpatient (REF) | payer OTHER, SELFPAY ==
[2024-01-18 13:51] LABS: Anion Gap 10 (12-20); Blood Urea Nitrogen 13 mg/dL (9-16); Carbon Dioxide 28 mmol/L (22-29); Chloride 107 mmol/L (96-108); Estimated Glomerular Filt Rate > 60; Glucose Random 108 mg/dL (60-115); Potassium 4.1 mmol/L (3.3-5.1); Sodium 141 mmol/L (135-145)
[2024-01-18 14:06] LABS: Estimated Average Glucose 128 mg/dL; Hemoglobin A1C 152.2319 umol/L; Hemoglobin A1c % 6.1 % (<6.0)
== END 2024-01-18 11:12 | disposition home or self-care (01) ==
LOC: HO.HHCL 11:11
PROVIDERS: Visit Provider Internal Medicine
DX: R73.09 Other abnormal glucose (principal)
CPT/HCPCS: 36415; 80048; 83036

== ENCOUNTER 2024-01-23 16:11 | Emergency (ER) | payer OTHER, SELFPAY ==
--- NOTE | ~2024-01-23 | CT_ITS ---
EXAMINATION: CT HEAD WITHOUT CONTRAST CLINICAL INFORMATION: Dizziness, on warfarin. COMPARISON: CT head 07/15/2023 TECHNIQUE: Contiguous axial imaging was performed from the skull base to vertex without intravenous administration of contrast. This CT examination was performed using dose optimization techniques as appropriate, variously including the following: *Automated exposure control *Adjustment of mA and/or kV according to patient size (this includes techniques or standardized protocols for targeted exams where dose is matched to indication/reason for exam; i.e. extremities or head) *Use of iterative reconstruction technique DLP: 688 mGy-cm FINDINGS: There is no evidence of acute intracranial hemorrhage, midline shift or mass effect. Recio to white matter differentiation is well preserved. No evidence of acute territorial edematous infarction. Bilateral periventricular white matter patchy low-attenuation changes are again noted, likely of chronic microangiopathy. There is mild global volume loss with proportionate dilatation of the ventricles and cortical sulci. Visualized paranasal sinuses are well-aerated. Visualized bilateral mastoid air cells are well-aerated. Bilateral middle ear cavities are well-aerated. CT/CT head/brain wo IV con IMPRESSION: No acute intracranial abnormality. Specifically there is no evidence of acute intracranial hemorrhage or acute territorial edematous infarction. Moderate white matter changes, likely of chronic microangiopathy.
--- NOTE | ~2024-01-23 | CT_ITS ---
EXAMINATION: CT ANGIOGRAM HEAD CT ANGIOGRAM NECK CLINICAL INFORMATION: Reason for Exam unsteadiness COMPARISON: Same day noncontrast head CT, CT head without contrast 07/15/2023, CTA head and neck 03/14/2023 TECHNIQUE: Initial noncontrast sales team member imaging of the head and neck was performed. Comparison is made with noncontrast head CT from earlier today. Test bolus sequences followed by intravenous administration 70 mL of Omnipaque 350. Helical imaging was performed in the axial plane from the aortic arch to the skull vertex. Delayed postcontrast imaging of the head was also performed. The data was processed at the biotechnologist workstation for generation of MIP sequences. Angled MIPs and volume rendered reformatted images were also generated at an offline 3D workstation. Stenoses are assessed in accordance with NASCET criteria unless otherwise indicated. DLP: 1532.91 mGy-cm This CT examination was performed using dose optimization techniques as appropriate, variously including the following: *Automated exposure control. *Adjustment of mA and/or kV according to patient size (this includes techniques or standardized protocols for targeted exams where dose is matched to indication/reason for exam; i.e. extremities or head). *Use of iterative reconstruction technique. FINDINGS: CT Head: There is no evidence of acute intracranial hemorrhage or edematous territorial infarction. Scattered hypoattenuation in the periventricular and deep white matter are consistent with moderate microangiopathy. Recio-white matter differentiation is preserved. The ventricles are normal in size and configuration. No evidence for obstructive hydrocephalus. No abnormal mass effect or midline shift. No extra-axial fluid collections. No pathologic intra-axial enhancement or regional oligemia. No acute soft tissue or osseous abnormalities. The mastoid air cells and paranasal sinuses are clear. CT Neck: The thyroid gland and remaining cervical soft tissues are within normal limits. Multilevel cervical spondylosis. CT Upper Chest: Left apical pulmonary scarring. Metallic material, possibly shrapnel, is noted within the right upper lobe. The visualized lung apices and upper mediastinum are otherwise within normal limits. Neck CTA: Aortic Arch: Normal contour and caliber. Classic 3 vessel branching pattern of the aortic arch. Great Vessel Origins: No significant stenosis of the branch origins. Right Common Carotid Artery: No focal stenosis or occlusion. Cervical Right Internal Carotid Artery: Normal opacification without focal stenosis or occlusion. Left Common Carotid Artery: No focal stenosis or occlusion. Cervical Left Internal Carotid Artery: Normal opacification without focal stenosis or occlusion. Cervical Right Vertebral Artery: Diffusely congenitally diminutive without significant narrowing Cervical Left Vertebral Artery: Dominant. No focal stenosis or occlusion. Brain CTA: Intracranial Internal Carotid Arteries: Calcific atherosclerotic disease of the intracranial internal carotid arteries without occlusion or flow-limiting stenosis. Right Anterior Cerebral Artery: Normal A1 segment. Normal opacification of the distal MILAN segments. Left Anterior Cerebral Artery: Normal A1 segment. Normal opacification of the distal MILAN segments. Azygos configuration of the A2 segment. Anterior Communicating Artery: Normal. Right Middle Cerebral Artery: Normal M1 segment of the MCA without focal stenosis or occlusion. Normal arborization of the distal segments. Left Middle Cerebral Artery: Normal M1 segment of the MCA without focal stenosis or occlusion. Normal arborization of the distal segments. Right Vertebral Artery: Poorly visualized intracranial and likely terminates as PICA. Left Vertebral Artery: Normal V4 segment. Basilar Artery: Normal without focal stenosis or occlusion. Normal appearance of the proximal superior cerebellar arteries. Right Posterior Cerebral Artery: Normal P1 segment. Normal opacification of the distal PREHEMMER segments. Left Posterior Cerebral Artery: Normal P1 segment. Normal opacification of the distal PREHEMMER segments. Normal opacification of the superior sagittal, straight, transverse, and sigmoid sinuses. CT/CT angio head neck IMPRESSION: No arterial high grade stenosis or large vessel occlusion in the head or neck is identified. 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
[2024-01-23 16:30] VITALS: BP 182/101; PULSE 73; RESP 18; TEMP 36.1; O2SAT 97; BMI 27.9
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
--- NOTE | 2024-01-23 16:34 | ECG_ITS ---
Test Reason : DIZZINESS Blood Pressure : / mmHG Vent. Rate : 060 BPM Atrial Rate : 060 BPM P-R Int : 162 ms QRS Dur : 088 ms QT Int : 438 ms P-R-T Axes : 017 -24 026 degrees QTc Int : 438 ms Normal sinus rhythm Minimal voltage criteria for LVH, may be normal variant ( R in aVL ) Borderline ECG When compared with ECG of 15-JUL-2023 17:43, No significant change was found Referred By: Susan Moreland Electronically Signed By:LEIF GARDNER MD
[2024-01-23 17:01] LABS: MANUAL DIFF FLAG NO
[2024-01-23 17:03] LABS: Basophils Percent Auto 0.5 % (0-2); Eosinophils Absolute Auto 0.3 X10*3/uL (0.0-0.4); Eosinophils Percent Auto 3.9 % (0-4); Hematocrit 45.5 % (42.0-52.0); Hemoglobin 15.3 g/dl (14.0-18.0); Imm Gran Abs Auto 0.02 X10*3/uL (0.00-0.03); Imm Gran Pct Auto 0.3 % (0.0-0.4); Lymphocytes Absolute Auto 2.8 X10*3/uL (1.2-4.9); Mean Corpuscular HGB Conc 33.6 g/dl (31.0-36.0); Mean Corpuscular Hemoglobin 29.7 pg (27.0-33.0); Mean Corpuscular Volume 88.2 fL (80.0-98.0); Mean Platelet Volume 9.9 fL (9.4-12.4); Monocytes Absolute Auto 0.5 X10*3/uL (0.1-1.2); Monocytes Percent Auto 7.6 % (2-11); Neutrophils Absolute Auto 2.8 x10*3/uL (2.0-8.3); Neutrophils Percent Auto 43.7 % (45-73); Platelet Count 225 X10*3/uL (160-400); Red Blood Count 5.16 X10*6/uL (4.60-5.80); Red Cell Distribution Width 13.8 % (11.0-16.0); White Blood Count 6.4 X10*3/uL (4.8-10.8)
[2024-01-23 17:09] LABS: INTERNATIONAL NORM RATIO 3.3 (0.9-1.1); Prothrombin Time 39.9 SEC (11.1-13.3)
[2024-01-23 17:18] LABS: Alanine Aminotransferase 41 U/L (0-40); Albumin Level 4.6 g/dL (3.5-5.0); Alkaline Phosphatase 64 U/L (39-117); Anion Gap 13 (12-20); Aspartate Amino Transferase 39 U/L (5-37); Bilirubin Total 0.6 mg/dL (0.0-1.0); Blood Urea Nitrogen 14 mg/dL (9-16); Calcium 9.4 mg/dL (8.4-10.2); Carbon Dioxide 28 mmol/L (22-29); Chloride 106 mmol/L (96-108); Creatinine Clr Calc Pharmacy 91.9; Estimated Glomerular Filt Rate > 60; Glucose Random 93 mg/dL (60-115); Potassium 4.2 mmol/L (3.3-5.1); Sodium 143 mmol/L (135-145); Total Protein 8.5 g/dL (6.5-8.0)
[2024-01-23 17:27] LABS: Troponin-I High Sensitivity < 2.7 ng/L (<3.5-35.0)
[2024-01-23 17:39] LABS: Influenza A PCR NEGATIVE (Negative); Influenza B PCR NEGATIVE (Negative); Resp Syncy Virus RNA Qual PCR NEGATIVE (Negative); SARS COV2 PCR INHOUSE NEGATIVE (Negative)
[2024-01-23 18:00] VITALS: BP 186/98; PULSE 77; RESP 18; TEMP 36.3; O2SAT 97
[2024-01-23] MEDS: Meclizine HCl 25 MG TABLET PO (18:26)
[2024-01-23] MEDS: iohexoL 350 MG/ML 100 ML INFUS..BTL 70 ML IV (19:12)
[2024-01-23 20:20] VITALS: BP 175/95; PULSE 65; RESP 16; TEMP 36.4; O2SAT 97
--- NOTE | 2024-01-23 20:28 | PC.NURSE ---
Patient ambulated around ED with a steady gait, patient denies dizziness with ambulation/position changes, reports mild weakness. ED provider notified.
== END 2024-01-23 20:54 | disposition home or self-care (01) ==
PROVIDERS: Registered Nurse Emergency; Emergency Provider Emergency Medicine Emergency Medical Services; PCP Internal Medicine
DX: R42 Dizziness and giddiness (principal); I10 Essential (primary) hypertension; R26.81 Unsteadiness on feet; B19.20 Unspecified viral hepatitis C without hepatic coma; Z86.718 Personal history of other venous thrombosis and embolism; Z79.01 Long term (current) use of anticoagulants; Z11.52 Encounter for screening for COVID-19; Z20.828 Contact with and (suspected) exposure to other viral communicable diseases
CPT/HCPCS: 0241U; 70450; 70496; 70498; 80053; 84484; 85025; 85610; 93005; 99285; Q9967

== ENCOUNTER → 2024-01-23 16:34 | Outpatient (BNV) | payer OTHER, SELFPAY | PROVIDERS: Emergency Provider Emergency Medicine Emergency Medical Services; PCP Internal Medicine; Visit Provider Internal Medicine Cardiovascular Disease | DX: R42 Dizziness and giddiness (principal) | CPT/HCPCS: 93010 ==

== ENCOUNTER 2024-01-27 14:25 | Outpatient (AMB) | payer OTHER, SELFPAY ==
--- NOTE | 2024-01-27 14:39 | MHC.OFFVISCO ---
Intake Intake Visit Reasons: Anticoagulation Allergies No Known Drug Allergies [NO KNOWN DRUG ALLERGIES] Allergy (Mild, Verified 01/27/24 14:34) NONE Medication List - Last Reconciled 01/27/24 by Trini Graham RN albuterol sulfate 90 mcg/actuation (ProAir HFA) 2 puffs inhalation Q4-6H PRN fluoride (sodium) 1.1% (PreviDent 5000 Booster Plus) dental BID fluticasone propionate 110 mcg/actuation (Flovent HFA) 1 puff PO BID gabapentin 300 mg PO TID lisinopril 10 mg PO DAILY 30 days meclizine 25 mg PO DAILY PRN oxycodone 5 mg PO Q8H PRN rosuvastatin 5 mg PO BEDTIME sildenafil (Viagra) 100 mg PO DAILY PRN tamsulosin 0.4 mg PO DAILY tizanidine 2 mg PO Q6H PRN warfarin 7.5 mg See Protocol PO DAILY@1800 Nursing Note INR:2.6- in therapeutic range of 2.5-3.0 Medications and supplements reviewed- no changes No changes in health, diet, medications, or supplements, Denies any signs and symptoms of bleeding or bruising or clotting. Bleeding, bruising, clotting discussed Nutritional guidance given Dose: 5mg x 2, 7.5mg x 5 F/U INR: 4 weeks Patient verbalizes understanding of instructions given Anti-Coag Initial Assessment Social Hx Patient Tobacco Use Status: Never used Tobacco alcohol intake: former Alcohol intake frequency: does not drink Coding Level of Care Code Est Patient Level 1 Diagnoses Current use of anticoagulant therapy Z79.01 Results AMB INR Fingerstick AMB INR Fingerstick 2.6 Last Edit by Trini Graham RN on 01/27/24 14:41 Assessment & Plan Assessment & Plan (1) Current use of anticoagulant therapy: Code(s): Z79.01 - group home (current) use of anticoagulants Category: Medical
[2024-01-27 14:41] LABS: Prothrombin Time Whole Bld POC 31.1 sec (11.1-13.5); ~PT, ~INR - Anti Coag Clinic 2.6 (0.9-1.1)
== END 2024-01-27 14:45 | disposition home or self-care (01) ==
LOC: HO.ACS 14:25
PROVIDERS: PCP Internal Medicine; Visit Provider Internal Medicine
DX: Z79.01 Long term (current) use of anticoagulants (principal)

== ENCOUNTER → 2024-01-27 14:25 | Outpatient (BNVA) | payer OTHER, SELFPAY | PROVIDERS: PCP Internal Medicine; Visit Provider Internal Medicine | DX: I26.99 Other pulmonary embolism without acute cor pulmonale (principal); I82.409 Acute embolism and thrombosis of unspecified deep veins of unspecified lower extremity; Z79.01 Long term (current) use of anticoagulants; Z51.81 Encounter for therapeutic drug level monitoring | CPT/HCPCS: 85610; 99211 ==

== ENCOUNTER 2024-02-12 08:33 | Outpatient (REF) | payer OTHER, SELFPAY | END 2024-02-12 08:34 | disposition home or self-care (01) | LOC: HO.LAB 08:33 | PROVIDERS: PCP Internal Medicine; Visit Provider Urology | DX: Z12.5 Encounter for screening for malignant neoplasm of prostate (principal); N40.1 Benign prostatic hyperplasia with lower urinary tract symptoms; N13.5 Crossing vessel and stricture of ureter without hydronephrosis | CPT/HCPCS: 36415; 84153 ==

== ENCOUNTER 2024-02-18 09:46 | Outpatient (AMB) | payer OTHER, SELFPAY ==
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
== END 2024-02-18 11:34 | disposition home or self-care (01) ==
PROVIDERS: Visit Provider Urology
DX: N40.1 Benign prostatic hyperplasia with lower urinary tract symptoms (principal); N13.8 Other obstructive and reflux uropathy
CPT/HCPCS: 99213

== ENCOUNTER → 2024-02-18 09:46 | Outpatient (BNVA) | payer OTHER, SELFPAY | PROVIDERS: Visit Provider Urology | DX: N40.1 Benign prostatic hyperplasia with lower urinary tract symptoms (principal); N13.8 Other obstructive and reflux uropathy | CPT/HCPCS: 51798; 99212 ==

== ENCOUNTER 2024-03-03 08:36 | Outpatient (AMB) | payer OTHER, SELFPAY ==
[2024-03-03 08:45] LABS: Prothrombin Time Whole Bld POC 61.9 sec (11.1-13.5); ~PT, ~INR - Anti Coag Clinic 5.2 (0.9-1.1)
--- NOTE | 2024-03-03 08:49 | MHC.OFFVISCO ---
Intake Intake Visit Reasons: Anticoagulation Allergies No Known Drug Allergies [NO KNOWN DRUG ALLERGIES] Allergy (Mild, Verified 03/03/24 09:32) NONE Medication List - Last Reconciled 03/03/24 by Trini Graham RN albuterol sulfate 90 mcg/actuation (ProAir HFA) 2 puffs inhalation Q4-6H PRN fluoride (sodium) 1.1% (PreviDent 5000 Booster Plus) dental BID fluticasone propionate 110 mcg/actuation (Flovent HFA) 1 puff PO BID gabapentin 300 mg PO TID lisinopril 10 mg PO DAILY 30 days meclizine 25 mg PO DAILY PRN oxycodone 5 mg PO Q8H PRN rosuvastatin 5 mg PO BEDTIME sildenafil (Viagra) 100 mg PO DAILY PRN tamsulosin 0.4 mg PO DAILY 90 days tizanidine 2 mg PO Q6H PRN warfarin 7.5 mg See Protocol PO DAILY@1800 Nursing Note INR 5.2?? out of therapeutic range - 2.5-3.0 pt sent to lab for venipuncture stat pt/inr- inr 4.8 reported by keisha Medications and supplements reviewed Patient status: pt unsure why inr elev Medications or supplements: no changes Diet: same Denies any signs and symptoms of bleeding or clotting or unusual bruising Bleeding, bruising, clotting discussed Nutritional guidance given: eat greens to lower Dose: hold dose warfarin , reduce tomm to 5mg then cont 5mg x 2, 7.5mg x 5 F/U INR Date : thursday03/07/24? Patient verbalizing understanding of instructions given. meteorological observer used for dosing, dietary management, bleed risk and f/u appt guyanese dosing sheet used for pt instructions pcp office dr larson called with elev inr/dosing and f/u appt - spoke to komal at 0943 Anti-Coag Initial Assessment Social Hx Patient Tobacco Use Status: Never used Tobacco alcohol intake: former Alcohol intake frequency: does not drink Coding Level of Care Code Est Patient Level 2 Diagnoses Current use of anticoagulant therapy Z79.01 Results AMB INR Fingerstick AMB INR Fingerstick 4.8 Last Edit by Trini Graham RN on 03/03/24 09:37 Assessment & Plan Assessment & Plan (1) Current use of anticoagulant therapy: Code(s): Z79.01 - [facility] (current) use of anticoagulants Category: Medical Orders: Orders Prothrombin Time INR Today Z79.01 - [facility] (current) use of anticoagulants
== END 2024-03-03 09:45 | disposition home or self-care (01) ==
LOC: HO.ACS 08:36
PROVIDERS: PCP Internal Medicine; Visit Provider Internal Medicine
DX: Z79.01 Long term (current) use of anticoagulants (principal)

== ENCOUNTER 2024-03-03 08:36 | Outpatient (REF) | payer OTHER, SELFPAY ==
[2024-03-03 09:10] LABS: Prothrombin Time 58.5 SEC (11.1-13.3)
[2024-03-03 10:01] LABS: INTERNATIONAL NORM RATIO 4.8 (0.9-1.1)
== END 2024-03-03 08:37 | disposition home or self-care (01) ==
LOC: HO.LAB 08:36
PROVIDERS: PCP Internal Medicine; Visit Provider Internal Medicine
DX: I26.99 Other pulmonary embolism without acute cor pulmonale (principal); Z51.81 Encounter for therapeutic drug level monitoring; Z79.01 Long term (current) use of anticoagulants
CPT/HCPCS: 36415; 85610; 99212

== ENCOUNTER 2024-03-07 10:07 | Outpatient (AMB) | payer OTHER, SELFPAY ==
--- NOTE | 2024-03-07 10:09 | MHC.OFFVISCO ---
Intake Intake Visit Reasons: Anticoagulation Allergies No Known Drug Allergies [NO KNOWN DRUG ALLERGIES] Allergy (Mild, Verified 03/07/24 10:09) NONE Medication List - Last Reconciled 03/07/24 by Yi Briggs RN albuterol sulfate 90 mcg/actuation (ProAir HFA) 2 puffs inhalation Q4-6H PRN fluoride (sodium) 1.1% (PreviDent 5000 Booster Plus) dental BID fluticasone propionate 110 mcg/actuation (Flovent HFA) 1 puff PO BID gabapentin 300 mg PO TID lisinopril 10 mg PO DAILY 30 days meclizine 25 mg PO DAILY PRN oxycodone 5 mg PO Q8H PRN rosuvastatin 5 mg PO BEDTIME sildenafil (Viagra) 100 mg PO DAILY PRN tamsulosin 0.4 mg PO DAILY 90 days tizanidine 2 mg PO Q6H PRN warfarin 7.5 mg See Protocol PO DAILY@1800 Nursing Note [facility] interprter phone service used to assess reason for elevated INR previous visit- may possibly be diet related - also hx of hep c in the past INR: 2.7 in therapeutic range Medications and supplements reviewed No other changes in health, diet, medications, or supplements, Denies any signs and symptoms of bleeding or bruising or clotting. Bleeding, bruising, clotting discussed Nutritional guidance given - review food list weekly, eat weekly greens Dose: resume 5mg x 2 days/ 7.5mg x 5 days F/U INR: 2 weeks IF INR trends up again then decrease dose 5mg x 3 days/ 7.5mg x 4 days Patient verbalizes understanding of instructions given with certified court/medical interpreter Anti-Coag Initial Assessment Social Hx Patient Tobacco Use Status: Never used Tobacco alcohol intake: former Alcohol intake frequency: does not drink Coding Level of Care Code Est Patient Level 1 Diagnoses Current use of anticoagulant therapy Z79.01 Assessment & Plan Assessment & Plan (1) Current use of anticoagulant therapy: Code(s): Z79.01 - [facility] (current) use of anticoagulants Category: Medical
[2024-03-07 10:16] LABS: Prothrombin Time Whole Bld POC 32.6 sec (11.1-13.5); ~PT, ~INR - Anti Coag Clinic 2.7 (0.9-1.1)
== END 2024-03-07 10:32 | disposition home or self-care (01) ==
LOC: HO.ACS 10:07
PROVIDERS: PCP Internal Medicine; Visit Provider Internal Medicine
DX: Z79.01 Long term (current) use of anticoagulants (principal)

== ENCOUNTER → 2024-03-07 10:07 | Outpatient (BNVA) | payer OTHER, SELFPAY | PROVIDERS: PCP Internal Medicine; Visit Provider Internal Medicine | DX: I26.99 Other pulmonary embolism without acute cor pulmonale (principal); I82.409 Acute embolism and thrombosis of unspecified deep veins of unspecified lower extremity; Z51.81 Encounter for therapeutic drug level monitoring; Z79.01 Long term (current) use of anticoagulants | CPT/HCPCS: 85610; 99211 ==

== ENCOUNTER 2024-03-11 20:11 | Emergency (ER) | payer OTHER, SELFPAY ==
[2024-03-11 21:00] VITALS: BP 156/89; PULSE 70; RESP 18; TEMP 36.7; O2SAT 96; BMI 28.5
[2024-03-11 22:32] VITALS: BP 148/88; PULSE 72; RESP 18; TEMP 36.7; O2SAT 97
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
[2024-03-12 00:16] VITALS: BP 184/95; PULSE 65; RESP 14; TEMP 36.8; O2SAT 96
[2024-03-12] MEDS: Diphth,Pertus(ACell),Tet Adult 0.5 ML SYRINGE IM (00:19)
[2024-03-12 00:34] VITALS: BP 184/95; PULSE 65; RESP 14; TEMP 36.8; O2SAT 96
== END 2024-03-12 00:34 | disposition home or self-care (01) ==
PROVIDERS: Emergency Provider Emergency Medicine; PCP Internal Medicine
DX: S80.212A Abrasion, left knee, initial encounter (principal); W10.1XXA Fall (on)(from) sidewalk curb, initial encounter; I10 Essential (primary) hypertension; E78.5 Hyperlipidemia, unspecified; Z86.718 Personal history of other venous thrombosis and embolism; Z86.711 Personal history of pulmonary embolism; Z79.01 Long term (current) use of anticoagulants; Z79.02 Long term (current) use of antithrombotics/antiplatelets; Z23 Encounter for immunization; Y93.01 Activity, walking, marching and hiking; Y92.414 Local residential or business street as the place of occurrence of the external cause; Y99.9 Unspecified external cause status
CPT/HCPCS: 90471; 90715; 99284

== ENCOUNTER 2024-03-15 11:35 | Outpatient (REF) | payer OTHER, SELFPAY ==
[2024-03-15 13:38] LABS: INTERNATIONAL NORM RATIO 2.2 (0.9-1.1); Prothrombin Time 26.7 SEC (11.1-13.3)
== END 2024-03-15 11:36 | disposition home or self-care (01) ==
LOC: HO.HHCL 11:35
PROVIDERS: Visit Provider Nurse Practitioner Family
DX: R58 Hemorrhage, not elsewhere classified (principal); T45.515A Adverse effect of anticoagulants, initial encounter
CPT/HCPCS: 36415; 85610

== ENCOUNTER 2024-03-21 10:08 | Outpatient (AMB) | payer OTHER, SELFPAY ==
[2024-03-21 10:23] LABS: ~PT, ~INR - Anti Coag Clinic 1.9 (0.9-1.1)
--- NOTE | 2024-03-21 10:23 | MHC.OFFVISCO ---
Intake Intake Visit Reasons: Anticoagulation Allergies No Known Drug Allergies [NO KNOWN DRUG ALLERGIES] Allergy (Mild, Verified 03/21/24 10:19) NONE Medication List - Last Reconciled 03/21/24 by Trini Graham RN albuterol sulfate 90 mcg/actuation (ProAir HFA) 2 puffs inhalation Q4-6H PRN fluoride (sodium) 1.1% (PreviDent 5000 Booster Plus) dental BID fluticasone propionate 110 mcg/actuation (Flovent HFA) 1 puff PO BID gabapentin 300 mg PO TID lisinopril 10 mg PO DAILY 30 days meclizine 25 mg PO DAILY PRN oxycodone 5 mg PO Q8H PRN rosuvastatin 5 mg PO BEDTIME sildenafil (Viagra) 100 mg PO DAILY PRN tamsulosin 0.4 mg PO DAILY 90 days tizanidine 2 mg PO Q6H PRN warfarin 7.5 mg See Protocol PO DAILY@1800 Nursing Note INR 1.9-? out of therapeutic range of 2.5-3.0 Medications and supplements reviewed Patient status: no c.o, denies missed dose Medications or supplements: no changes Diet: same Denies any signs and symptoms of bleeding or clotting or unusual bruising Bleeding, bruising, clotting discussed Nutritional guidance given: no greens for 2-3 days Dose: 10mg today, then 5mg x 2, 7.5mg x 5 F/U INR Date : 1 week Patient verbalizing understanding of instructions given. spice miller marta used for this visit- pt thinks he may have missed a dose pcp dr larson/[facility] called with low inr/dosing and f/u appt. spoke to rahul at 1036 AntiCoa Initial Assessment Social Hx Patient Tobacco Use Status: Never used Tobacco alcohol intake: former Alcohol intake frequency: does not drink Coding Level of Care Code Est Patient Level 1 Diagnoses Current use of anticoagulant therapy Z79.01 Assessment & Plan Assessment & Plan (1) Current use of anticoagulant therapy: Code(s): Z79.01 - retirement (current) use of anticoagulants Category: Medical
== END 2024-03-21 10:36 | disposition home or self-care (01) ==
LOC: HO.ACS 10:08
PROVIDERS: PCP Internal Medicine; Visit Provider Internal Medicine
DX: Z79.01 Long term (current) use of anticoagulants (principal)

== ENCOUNTER → 2024-03-21 10:08 | Outpatient (BNVA) | payer OTHER, SELFPAY | PROVIDERS: PCP Internal Medicine; Visit Provider Internal Medicine | DX: I26.99 Other pulmonary embolism without acute cor pulmonale (principal); I82.409 Acute embolism and thrombosis of unspecified deep veins of unspecified lower extremity; Z51.81 Encounter for therapeutic drug level monitoring; Z79.01 Long term (current) use of anticoagulants | CPT/HCPCS: 85610; 99211 ==

== ENCOUNTER 2024-03-28 15:32 | Outpatient (AMB) | payer OTHER, SELFPAY ==
[2024-03-28 15:37] LABS: Prothrombin Time Whole Bld POC 39.4 sec (11.1-13.5); ~PT, ~INR - Anti Coag Clinic 3.3 (0.9-1.1)
--- NOTE | 2024-03-28 15:47 | MHC.OFFVISCO ---
Intake Intake Visit Reasons: Anticoagulation Allergies No Known Drug Allergies [NO KNOWN DRUG ALLERGIES] Allergy (Mild, Verified 03/28/24 15:32) NONE Medication List - Last Reconciled 03/28/24 by Yi Briggs RN albuterol sulfate 90 mcg/actuation (ProAir HFA) 2 puffs inhalation Q4-6H PRN fluoride (sodium) 1.1% (PreviDent 5000 Booster Plus) dental BID fluticasone propionate 110 mcg/actuation (Flovent HFA) 1 puff PO BID gabapentin 300 mg PO TID lisinopril 10 mg PO DAILY 30 days meclizine 25 mg PO DAILY PRN oxycodone 5 mg PO Q8H PRN rosuvastatin 5 mg PO BEDTIME sildenafil (Viagra) 100 mg PO DAILY PRN tamsulosin 0.4 mg PO DAILY 90 days tizanidine 2 mg PO Q6H PRN warfarin 7.5 mg See Protocol PO DAILY@1800 Nursing Note INR: 3.3 almost therapeutic range 2.5-3.0 pt has been on warfarin for 21 years plus has a green field filter - he only had 1 dvt/pe has hx of hep c was treated years ago his INR values tend to be labile at times, he was enc to discuss with Dr Camargo about going on either Eliquis or Xarelto - not sure if candidate with Hx of Hep C. Medications and supplements reviewed No changes in health, diet, medications, or supplements, Denies any signs and symptoms of bleeding or bruising or clotting. Bleeding, bruising, clotting discussed Nutritional guidance given - eat a mix of fruits and vegetables - have some greens today but not too much Dose: keep same dose 5mg x 2 days/ 7.5mg x 5 days F/U INR: 2 weeks Patient verbalizes understanding of instructions given Anti-Coag Initial Assessment Social Hx Patient Tobacco Use Status: Never used Tobacco alcohol intake: former Alcohol intake frequency: does not drink Coding Level of Care Code Est Patient Level 1 Diagnoses Current use of anticoagulant therapy Z79.01 Results AMB INR Fingerstick AMB INR Fingerstick 3.3 Last Edit by Yi Briggs RN on 03/28/24 15:39 MANUAL ENTRY Assessment & Plan Assessment & Plan (1) Current use of anticoagulant therapy: 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
== END 2024-03-28 15:56 | disposition home or self-care (01) ==
LOC: HO.ACS 15:32
PROVIDERS: PCP Internal Medicine; Visit Provider Internal Medicine
DX: Z79.01 Long term (current) use of anticoagulants (principal)

== ENCOUNTER → 2024-03-28 15:32 | Outpatient (BNVA) | payer OTHER, SELFPAY | PROVIDERS: PCP Internal Medicine; Visit Provider Internal Medicine | DX: I26.99 Other pulmonary embolism without acute cor pulmonale (principal); I82.409 Acute embolism and thrombosis of unspecified deep veins of unspecified lower extremity; Z79.01 Long term (current) use of anticoagulants; Z51.81 Encounter for therapeutic drug level monitoring | CPT/HCPCS: 85610; 99211 ==

== ENCOUNTER 2024-04-14 14:34 | Outpatient (AMB) | payer OTHER, SELFPAY ==
[2024-04-14 14:48] LABS: Prothrombin Time Whole Bld POC 61.7 sec (11.1-13.5); ~PT, ~INR - Anti Coag Clinic 5.1 (0.9-1.1)
--- NOTE | 2024-04-14 15:01 | MHC.OFFVISCO ---
Intake Intake Visit Reasons: Anticoagulation Allergies No Known Drug Allergies [NO KNOWN DRUG ALLERGIES] Allergy (Mild, Verified 04/14/24 14:41) NONE Medication List - Last Reconciled 04/14/24 by Yi Briggs RN albuterol sulfate 90 mcg/actuation (ProAir HFA) 2 puffs inhalation Q4-6H PRN fluoride (sodium) 1.1% (PreviDent 5000 Booster Plus) dental BID fluticasone propionate 110 mcg/actuation (Flovent HFA) 1 puff PO BID lisinopril 10 mg PO DAILY 30 days meclizine 25 mg PO DAILY PRN oxycodone 5 mg PO Q8H PRN rosuvastatin 5 mg PO BEDTIME sildenafil (Viagra) 100 mg PO DAILY PRN tamsulosin 0.4 mg PO DAILY 90 days tizanidine 2 mg PO Q6H PRN warfarin 7.5 mg See Protocol PO DAILY@1800 Nursing Note INR 5.1 out of therapeutic range Medications and supplements reviewed Patient status: Pt had a few beers and foods he doesnt usually eat over memorial day weekend, he denies any s/sx of bleeding, bruising or clotting and will go to ER should he hit his head have any black tarry stools or any unusual bleeding or bruising Medications or supplements: denies any changes Diet: good Denies any signs and symptoms of bleeding or clotting or unusual bruising Bleeding, bruising, clotting discussed Nutritional guidance given: review food list and reminded pt that beer can raise the INR, he was enc to eat greens today and weekly and toreveiw the food list weekly, Dose: hold today then decrease tomorrow's dose to 5mg then 7.5mg x 5 days/ 5mg x 2 days F/U INR Date : 04/19/24 ?? Patient verbalizing understanding of instructions given. t/c to PCP spoke with Clementine GOMES who will convey pt status to PCP team, it was also explained that pt on warfarin 21 years - he was treated for Hep c many years ago - questioned if he still has green field filter, can pt a candidate for a DOAC? -she will convey msg to medical team. 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
== END 2024-04-14 15:10 | disposition home or self-care (01) ==
LOC: HO.ACS 14:34
PROVIDERS: PCP Internal Medicine; Visit Provider Internal Medicine
DX: Z79.01 Long term (current) use of anticoagulants (principal)

== ENCOUNTER → 2024-04-14 14:34 | Outpatient (BNVA) | payer OTHER, SELFPAY | PROVIDERS: PCP Internal Medicine; Visit Provider Internal Medicine | DX: I26.99 Other pulmonary embolism without acute cor pulmonale (principal); I82.409 Acute embolism and thrombosis of unspecified deep veins of unspecified lower extremity; Z79.01 Long term (current) use of anticoagulants; Z51.81 Encounter for therapeutic drug level monitoring | CPT/HCPCS: 85610; 99211 ==

== ENCOUNTER → 2024-04-19 14:23 | Outpatient (BNVA) | payer OTHER, SELFPAY | PROVIDERS: PCP Internal Medicine; Visit Provider Internal Medicine | DX: I26.99 Other pulmonary embolism without acute cor pulmonale (principal); I82.409 Acute embolism and thrombosis of unspecified deep veins of unspecified lower extremity; Z79.01 Long term (current) use of anticoagulants; Z51.81 Encounter for therapeutic drug level monitoring | CPT/HCPCS: 85610; 99211 ==

== ENCOUNTER 2024-04-29 15:40 | Outpatient (AMB) | payer OTHER, SELFPAY ==
--- NOTE | 2024-04-29 15:54 | MHC.OFFVISCO ---
Intake Intake Visit Reasons: Anticoagulation Allergies No Known Drug Allergies [NO KNOWN DRUG ALLERGIES] Allergy (Mild, Verified 04/29/24 15:50) NONE Medication List - Last Reconciled 04/29/24 by Yi Briggs RN albuterol sulfate 90 mcg/actuation (ProAir HFA) 2 puffs inhalation Q4-6H PRN fluoride (sodium) 1.1% (PreviDent 5000 Booster Plus) dental BID fluticasone propionate 110 mcg/actuation (Flovent HFA) 1 puff PO BID lisinopril 10 mg PO DAILY 30 days meclizine 25 mg PO DAILY PRN oxycodone 5 mg PO Q8H PRN rosuvastatin 5 mg PO BEDTIME sildenafil (Viagra) 100 mg PO DAILY PRN tamsulosin 0.4 mg PO DAILY 90 days tizanidine 2 mg PO Q6H PRN warfarin 7.5 mg See Protocol PO DAILY@1800 Nursing Note INR: 2.6 in therapeutic range Medications and supplements reviewed No changes in health, diet, medications, or supplements, Denies any signs and symptoms of bleeding or bruising or clotting. Bleeding, bruising, clotting discussed Nutritional guidance given Dose: 5mg x 2 days/ 7.5mg x 5 days F/U INR: 2 weeks Patient verbalizes understanding of instructions given Anti-Coag Initial Assessment Social Hx Patient Tobacco Use Status: Never used Tobacco alcohol intake: former Alcohol intake frequency: does not drink Coding Level of Care Code Est Patient Level 1 Diagnoses Current use of anticoagulant therapy Z79.01 Results AMB INR Fingerstick AMB INR Fingerstick 2.6 Last Edit by Yi Briggs RN on 04/29/24 15:48 manual entry failed interfacing Assessment & Plan Assessment & Plan (1) Current use of anticoagulant therapy: Code(s): Z79.01 - [facility] (current) use of anticoagulants Category: Medical
[2024-04-30 09:24] LABS: Prothrombin Time Whole Bld POC 31.5 sec (11.1-13.5); ~PT, ~INR - Anti Coag Clinic 2.6 (0.9-1.1)
== END 2024-04-29 15:55 | disposition home or self-care (01) ==
LOC: HO.ACS 15:40
PROVIDERS: PCP Internal Medicine; Visit Provider Internal Medicine
DX: Z79.01 Long term (current) use of anticoagulants (principal)

== ENCOUNTER → 2024-04-29 15:40 | Outpatient (BNVA) | payer OTHER, SELFPAY | PROVIDERS: PCP Internal Medicine; Visit Provider Internal Medicine | DX: I26.99 Other pulmonary embolism without acute cor pulmonale (principal); I82.409 Acute embolism and thrombosis of unspecified deep veins of unspecified lower extremity; Z79.01 Long term (current) use of anticoagulants; Z51.81 Encounter for therapeutic drug level monitoring | CPT/HCPCS: 85610; 99211 ==

== ENCOUNTER 2024-05-13 14:50 | Outpatient (AMB) | payer OTHER, SELFPAY ==
[2024-05-13 14:59] LABS: Prothrombin Time Whole Bld POC 40.6 sec (11.1-13.5); ~PT, ~INR - Anti Coag Clinic 3.4 (0.9-1.1)
--- NOTE | 2024-05-13 15:05 | MHC.OFFVISCO ---
Intake Intake Visit Reasons: Anticoagulation Allergies No Known Drug Allergies [NO KNOWN DRUG ALLERGIES] Allergy (Mild, Verified 05/13/24 14:54) NONE Medication List - Last Reconciled 05/13/24 by Zainab Rodriguez RN albuterol sulfate 90 mcg/actuation (ProAir HFA) 2 puffs inhalation Q4-6H PRN fluoride (sodium) 1.1% (PreviDent 5000 Booster Plus) dental BID fluticasone propionate 110 mcg/actuation (Flovent HFA) 1 puff PO BID lisinopril 10 mg PO DAILY 30 days meclizine 25 mg PO DAILY PRN oxycodone 5 mg PO Q8H PRN rosuvastatin 5 mg PO BEDTIME sildenafil (Viagra) 100 mg PO DAILY PRN tamsulosin 0.4 mg PO DAILY 90 days tizanidine 2 mg PO Q6H PRN warfarin 7.5 mg See Protocol PO DAILY@1800 Nursing Note INR: 3.4 out of therapeutic range of 2.5-3 Medications and supplements reviewed No changes in health, diet, medications, or supplements, Denies any signs and symptoms of bleeding or bruising or clotting. Bleeding, bruising, clotting discussed Nutritional guidance given: food list reviewed with pt and given to him in [place]. Pt instructed to have greens today and to avoid foods from the list that raises the INR Dose: Pt already took today's dose of 7.5mg, will decrease tomorrow's dose to 5mg (7.5mg) then to resume usual dose of 7.5mg X 5 days and 5mg X 2 days F/U INR: 2 weeks Patient verbalizes understanding of instructions given Anti-Coag Initial Assessment Social Hx Patient Tobacco Use Status: Never used Tobacco alcohol intake: former Alcohol intake frequency: does not drink Coding Level of Care Code Est Patient Level 1 Diagnoses Current use of anticoagulant therapy Z79.01 Assessment & Plan Assessment & Plan (1) Current use of anticoagulant therapy: Code(s): Z79.01 - [facility] (current) use of anticoagulants Category: Medical
== END 2024-05-13 15:14 | disposition home or self-care (01) ==
LOC: HO.ACS 14:50
PROVIDERS: PCP Internal Medicine; Visit Provider Internal Medicine
DX: Z79.01 Long term (current) use of anticoagulants (principal)

== ENCOUNTER → 2024-05-13 14:50 | Outpatient (BNVA) | payer OTHER, SELFPAY | PROVIDERS: PCP Internal Medicine; Visit Provider Internal Medicine | DX: I26.99 Other pulmonary embolism without acute cor pulmonale (principal); I82.409 Acute embolism and thrombosis of unspecified deep veins of unspecified lower extremity; Z79.01 Long term (current) use of anticoagulants; Z51.81 Encounter for therapeutic drug level monitoring | CPT/HCPCS: 85610; 99211 ==

== ENCOUNTER 2024-06-05 03:10 | Emergency (ER) | payer OTHER, SELFPAY ==
--- NOTE | ~2024-06-05 | XR_ITS ---
EXAMINATION: XR CHEST CLINICAL INFORMATION: Cough. COMPARISON: 10/03/2020 TECHNIQUE: 2 views of the chest were obtained. FINDINGS: The cardiomediastinal silhouette is stable. Multiple radiopaque structures are seen overlying the upper chest more numerous on the left. There is right lower lung field scarring. There is no focal lung consolidation or evidence for significant pleural effusions. The bony structures and soft tissues are unremarkable. XR/XR chest 2V IMPRESSION: 1. No acute cardiopulmonary process. 2. Multiple radiopaque structures overlying the upper chest, more numerous on the left.
[2024-06-05 03:13] VITALS: BP 153/95; PULSE 79; RESP 18; TEMP 36.6; O2SAT 95; BMI 29.1
[2024-06-05 03:45] VITALS: O2SAT 95
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
[2024-06-05 03:59] LABS: COVID-19 Test Negative (Negative); IDNOW Serial# 08D9AD1C; IDNOW Serial# 152EDE1D; Influenza A Negative (Negative); Influenza B2 Negative (Negative)
[2024-06-05] MEDS: dexAMETHasone sod phosphate 4 MG/ML VIAL 8 MG PO (04:09)
[2024-06-05] MEDS: Azithromycin 500 MG TABLET PO (04:09)
[2024-06-05 04:14] VITALS: BP 153/95; PULSE 79; RESP 18; TEMP 36.6; O2SAT 95
== END 2024-06-05 04:16 | disposition home or self-care (01) ==
PROVIDERS: Emergency Provider Emergency Medicine
DX: J40 Bronchitis, not specified as acute or chronic (principal); R05.9 Cough, unspecified; Z11.52 Encounter for screening for COVID-19
CPT/HCPCS: 71046; 87502; 87635; 99284; J1100

== ENCOUNTER 2024-06-06 10:33 | Outpatient (AMB) | payer OTHER, SELFPAY ==
[2024-06-06 10:43] LABS: Prothrombin Time Whole Bld POC 34.6 sec (11.1-13.5); ~PT, ~INR - Anti Coag Clinic 2.9 (0.9-1.1)
--- NOTE | 2024-06-06 10:51 | MHC.OFFVISCO ---
Intake Intake Visit Reasons: Anticoagulation Allergies No Known Drug Allergies [NO KNOWN DRUG ALLERGIES] Allergy (Mild, Verified 06/06/24 10:36) NONE Medication List - Last Reconciled 06/06/24 by Zainab Rodriguez RN albuterol sulfate 90 mcg/actuation (ProAir HFA) 2 puffs inhalation Q4-6H PRN azithromycin 250 mg PO DAILY 4 days fluoride (sodium) 1.1% (PreviDent 5000 Booster Plus) dental BID fluticasone propionate 110 mcg/actuation (Flovent HFA) 1 puff PO BID lisinopril 10 mg PO DAILY 30 days meclizine 25 mg PO DAILY PRN oxycodone 5 mg PO Q8H PRN rosuvastatin 5 mg PO BEDTIME sildenafil (Viagra) 100 mg PO DAILY PRN tamsulosin 0.4 mg PO DAILY 90 days tizanidine 2 mg PO Q6H PRN warfarin 7.5 mg See Protocol PO DAILY@1800 Nursing Note Pt to [facility]. [place] interpretter utilized. INR: 2.9 in therapeutic range of 2.5-3.0 Medications and supplements reviewed: new prescription for AZITHROMYCIN yesterday when he was seen in ED for bronchitis. Denies any signs and symptoms of bleeding or bruising or clotting. Bleeding, bruising, clotting discussed Nutritional guidance given: pt instructed to increase greens while on this med. He stated he likes greens and will have broccoli, salad, avocado etc. Reviewed food list with pt. He understands lettuce in salad has to be dark green leafs. Dose: will decrease day 5 dose from 7.5 to 5mg then usual dose of 7.5mg X 5 days 5mg X 2 days. See dose managment. F/U INR: 1 week Patient verbalizes understanding of instructions given Anti-Coag Initial Assessment Social Hx Patient Tobacco Use Status: Never used Tobacco alcohol intake: former Alcohol intake frequency: does not drink Coding Level of Care Code Est Patient Level 1 Diagnoses Current use of anticoagulant therapy Z79.01 Results AMB INR Fingerstick AMB INR Fingerstick 2.9 Last Edit by Zainab Rodriguez RN on 06/06/24 10:43 interface delay Assessment & Plan Assessment & Plan (1) Current use of anticoagulant therapy: Code(s): Z79.01 - USP (current) use of anticoagulants Category: Medical
== END 2024-06-06 11:01 | disposition home or self-care (01) ==
LOC: HO.ACS 10:33
PROVIDERS: Visit Provider Internal Medicine
DX: Z79.01 Long term (current) use of anticoagulants (principal)

== ENCOUNTER → 2024-06-06 10:33 | Outpatient (BNVA) | payer OTHER, SELFPAY | PROVIDERS: Visit Provider Internal Medicine | DX: I26.99 Other pulmonary embolism without acute cor pulmonale (principal); I82.409 Acute embolism and thrombosis of unspecified deep veins of unspecified lower extremity; Z79.01 Long term (current) use of anticoagulants; Z51.81 Encounter for therapeutic drug level monitoring | CPT/HCPCS: 85610; 99211 ==

== ENCOUNTER 2024-06-13 10:19 | Outpatient (AMB) | payer OTHER, SELFPAY ==
[2024-06-13 10:28] LABS: Prothrombin Time Whole Bld POC 36.8 sec (11.1-13.5); ~PT, ~INR - Anti Coag Clinic 3.1 (0.9-1.1)
--- NOTE | 2024-06-13 10:35 | MHC.OFFVISCO ---
Intake Intake Visit Reasons: Anticoagulation Allergies No Known Drug Allergies [NO KNOWN DRUG ALLERGIES] Allergy (Mild, Verified 06/13/24 10:24) NONE Medication List - Last Reconciled 06/13/24 by Bre Hayes RN albuterol sulfate 90 mcg/actuation (ProAir HFA) 2 puffs inhalation Q4-6H PRN azithromycin 250 mg PO DAILY 4 days fluoride (sodium) 1.1% (PreviDent 5000 Booster Plus) dental BID fluticasone propionate 110 mcg/actuation (Flovent HFA) 1 puff PO BID lisinopril 10 mg PO DAILY 30 days meclizine 25 mg PO DAILY PRN oxycodone 5 mg PO Q8H PRN rosuvastatin 5 mg PO BEDTIME sildenafil (Viagra) 100 mg PO DAILY PRN tamsulosin 0.4 mg PO DAILY 90 days tizanidine 2 mg PO Q6H PRN warfarin 7.5 mg See Protocol PO DAILY@1800 Nursing Note PT.STATES THAT HE IS DONE WITH ANTIBIOTIC AND FEELS MUCH BETTER. NO CP,SOB,DIET/MED CHANGES,FALLS OR SX OF BLEEDING. CONTINUE PRESENT DOSE AND FOLLOW-UP IN 2 WEEKS. GOOD UNDERSTANDING OF DOSING INSTR. 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
== END 2024-06-13 10:39 | disposition home or self-care (01) ==
LOC: HO.ACS 10:19
PROVIDERS: Visit Provider Internal Medicine
DX: Z79.01 Long term (current) use of anticoagulants (principal)

== ENCOUNTER → 2024-06-13 10:19 | Outpatient (BNVA) | payer OTHER, SELFPAY | PROVIDERS: Visit Provider Internal Medicine | DX: I26.99 Other pulmonary embolism without acute cor pulmonale (principal); I82.409 Acute embolism and thrombosis of unspecified deep veins of unspecified lower extremity; Z79.01 Long term (current) use of anticoagulants; Z51.81 Encounter for therapeutic drug level monitoring | CPT/HCPCS: 85610; 99211 ==

== ENCOUNTER 2024-06-27 15:24 | Outpatient (REF) | payer OTHER, SELFPAY ==
[2024-06-27 16:18] LABS: INTERNATIONAL NORM RATIO 4.4 (0.9-1.1); Prothrombin Time 53.4 SEC (11.1-13.3)
== END 2024-06-27 15:25 | disposition home or self-care (01) ==
LOC: HO.LAB 15:24
PROVIDERS: PCP Internal Medicine; Visit Provider Internal Medicine
DX: Z51.81 Encounter for therapeutic drug level monitoring (principal); Z79.01 Long term (current) use of anticoagulants
CPT/HCPCS: 36415; 85610; 99212

== ENCOUNTER 2024-06-27 15:24 | Outpatient (AMB) | payer OTHER, SELFPAY ==
[2024-06-27 15:32] LABS: Prothrombin Time Whole Bld POC 60.1 sec (11.1-13.5)
--- NOTE | 2024-06-27 15:34 | MHC.OFFVISCO ---
Intake Intake Visit Reasons: Anticoagulation Allergies No Known Drug Allergies [NO KNOWN DRUG ALLERGIES] Allergy (Mild, Verified 06/27/24 15:25) NONE Medication List - Last Reconciled 06/27/24 by Trini Graham RN albuterol sulfate 90 mcg/actuation (ProAir HFA) 2 puffs inhalation Q4-6H PRN azithromycin 250 mg PO DAILY 4 days fluoride (sodium) 1.1% (PreviDent 5000 Booster Plus) dental BID fluticasone propionate 110 mcg/actuation (Flovent HFA) 1 puff PO BID lisinopril 10 mg PO DAILY 30 days meclizine 25 mg PO DAILY PRN oxycodone 5 mg PO Q8H PRN rosuvastatin 5 mg PO BEDTIME sildenafil (Viagra) 100 mg PO DAILY PRN tamsulosin 0.4 mg PO DAILY 90 days tizanidine 2 mg PO Q6H PRN warfarin 7.5 mg See Protocol PO DAILY@1800 Nursing Note INR 5.0-? out of therapeutic range of 2.5-3 pt sent to lab for stat inr Medications and supplements reviewed Patient status: pt unsure why inr is elev Medications or supplements: no changes, finished antibiotics approx 2 weeks ago Diet: same, states eating tomatoes Denies any signs and symptoms of bleeding or clotting or unusual bruising Bleeding, bruising, clotting discussed -aware at risk for bleeding, avoid high risk activity Nutritional guidance given: eat greens to lower, no reds Dose: already took 7.5mg today, hold dose tomm, reduce to 5mg on thu F/U INR Date : 06/30/24?? Patient verbalizing understanding of instructions given. 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
== END 2024-06-27 16:18 | disposition home or self-care (01) ==
LOC: HO.ACS 15:24
PROVIDERS: PCP Internal Medicine; Visit Provider Internal Medicine
DX: Z79.01 Long term (current) use of anticoagulants (principal)

== ENCOUNTER 2024-06-30 15:11 | Outpatient (AMB) | payer OTHER, SELFPAY ==
--- NOTE | 2024-06-30 15:25 | MHC.OFFVISCO ---
Intake Intake Visit Reasons: Anticoagulation Allergies No Known Drug Allergies [NO KNOWN DRUG ALLERGIES] Allergy (Mild, Verified 06/30/24 15:11) NONE Medication List - Last Reconciled 06/30/24 by Yi Briggs RN albuterol sulfate 90 mcg/actuation (ProAir HFA) 2 puffs inhalation Q4-6H PRN fluoride (sodium) 1.1% (PreviDent 5000 Booster Plus) dental BID fluticasone propionate 110 mcg/actuation (Flovent HFA) 1 puff PO BID lisinopril 10 mg PO DAILY 30 days meclizine 25 mg PO DAILY PRN oxycodone 5 mg PO Q8H PRN rosuvastatin 5 mg PO BEDTIME sildenafil (Viagra) 100 mg PO DAILY PRN tamsulosin 0.4 mg PO DAILY 90 days tizanidine 2 mg PO Q6H PRN warfarin 7.5 mg See Protocol PO DAILY@1800 Nursing Note INR: 2.9 in therapeutic range Medications and supplements reviewed No changes in health, diet, medications, or supplements, Denies any signs and symptoms of bleeding or bruising or clotting. Bleeding, bruising, clotting discussed Nutritional guidance given - Review food list weekly ,eat a mix of fruits and vegetables, make sure to eat greens weekly if able include blueberries also Dose: resume usual dose 5mg x 2 days/ 7.5mg x 5 days F/U INR: 2 weeks Call when you have medication changes in 1 -2 days Patient verbalizes understanding of instructions given Anti-Coag Initial Assessment Social Hx Patient Tobacco Use Status: Never used Tobacco alcohol intake: former Alcohol intake frequency: does not drink Coding Level of Care Code Est Patient Level 1 Diagnoses Current use of anticoagulant therapy Z79.01 Results AMB INR Fingerstick AMB INR Fingerstick 2.9 Last Edit by Yi Briggs RN on 06/30/24 15:23 MANUAL ENTRY DUE TO FAILED INTERFACING Assessment & Plan Assessment & Plan (1) Current use of anticoagulant therapy: Code(s): 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
[2024-06-30 16:07] LABS: Prothrombin Time Whole Bld POC 34.7 sec (11.1-13.5); ~PT, ~INR - Anti Coag Clinic 2.9 (0.9-1.1)
== END 2024-06-30 15:28 | disposition home or self-care (01) ==
LOC: HO.ACS 15:11
PROVIDERS: PCP Internal Medicine; Visit Provider Internal Medicine
DX: Z79.01 Long term (current) use of anticoagulants (principal)

== ENCOUNTER → 2024-06-30 15:11 | Outpatient (BNVA) | payer OTHER, SELFPAY | PROVIDERS: PCP Internal Medicine; Visit Provider Internal Medicine | DX: I26.99 Other pulmonary embolism without acute cor pulmonale (principal); I82.409 Acute embolism and thrombosis of unspecified deep veins of unspecified lower extremity; Z79.01 Long term (current) use of anticoagulants; Z51.81 Encounter for therapeutic drug level monitoring | CPT/HCPCS: 85610; 99211 ==

== ENCOUNTER 2024-07-14 15:23 | Outpatient (AMB) | payer OTHER, SELFPAY ==
[2024-07-14 15:29] LABS: Prothrombin Time Whole Bld POC 48.2 sec (11.1-13.5)
--- NOTE | 2024-07-14 15:36 | MHC.OFFVISCO ---
Intake Intake Visit Reasons: Anticoagulation Allergies No Known Drug Allergies [NO KNOWN DRUG ALLERGIES] Allergy (Mild, Verified 06/30/24 15:11) NONE Medication List - Last Reconciled 07/14/24 by Yi Briggs RN albuterol sulfate 90 mcg/actuation (ProAir HFA) 2 puffs inhalation Q4-6H PRN fluoride (sodium) 1.1% (PreviDent 5000 Booster Plus) dental BID fluticasone propionate 110 mcg/actuation (Flovent HFA) 1 puff PO BID lisinopril 10 mg PO DAILY 30 days meclizine 25 mg PO DAILY PRN oxycodone 5 mg PO Q8H PRN rosuvastatin 5 mg PO BEDTIME sildenafil (Viagra) 100 mg PO DAILY PRN tamsulosin 0.4 mg PO DAILY 90 days tizanidine 2 mg PO Q6H PRN warfarin 7.5 mg See Protocol PO DAILY@1800 Nursing Note INR 4.0 out of therapeutic range Medications and supplements reviewed Patient status: INR tends to go over range - not sure if diet using more garlic or liver old hx of Hep C Medications or supplements: no changes Diet: no changes - states he has had greens Denies any signs and symptoms of bleeding or clotting or unusual bruising Bleeding, bruising, clotting discussed Nutritional guidance given: greens today and weekly - enc to eat more greens when having more garlic because it raise the iNR Dose: hold today then decrease 5mg x 3 days/ 7.5mg x 4 days F/U INR Date: 2 weeks ?? Patient verbalizing understanding of instructions given. 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
== END 2024-07-14 15:40 | disposition home or self-care (01) ==
LOC: HO.ACS 15:23
PROVIDERS: PCP Internal Medicine; Visit Provider Internal Medicine
DX: Z79.01 Long term (current) use of anticoagulants (principal)

== ENCOUNTER → 2024-07-14 15:23 | Outpatient (BNVA) | payer OTHER, SELFPAY | PROVIDERS: PCP Internal Medicine; Visit Provider Internal Medicine | DX: I26.99 Other pulmonary embolism without acute cor pulmonale (principal); I82.409 Acute embolism and thrombosis of unspecified deep veins of unspecified lower extremity; Z79.01 Long term (current) use of anticoagulants; Z51.81 Encounter for therapeutic drug level monitoring | CPT/HCPCS: 85610; 99211 ==

== ENCOUNTER 2024-07-23 16:27 | Emergency (ER) | payer OTHER, SELFPAY ==
[2024-07-23 16:32] VITALS: BP 155/91; PULSE 91; RESP 16; TEMP 36.3; O2SAT 94; BMI 29.1
[2024-07-23 16:44] LABS: MANUAL DIFF FLAG NO
[2024-07-23 17:01] LABS: Alanine Aminotransferase 42 U/L (0-40); Albumin Level 4.6 g/dL (3.5-5.0); Alkaline Phosphatase 67 U/L (39-117); Anion Gap 12 (12-20); Aspartate Amino Transferase 39 U/L (5-37); Bilirubin Total 0.6 mg/dL (0.0-1.0); Blood Urea Nitrogen 14 mg/dL (9-16); Calcium 8.9 mg/dL (8.4-10.2); Carbon Dioxide 26 mmol/L (22-29); Chloride 109 mmol/L (96-108); Creatinine Clr Calc Pharmacy 75.9; Estimated Glomerular Filt Rate > 60; Glucose Random 125 mg/dL (60-115); Potassium 3.9 mmol/L (3.3-5.1); Sodium 143 mmol/L (135-145); Total Protein 8.1 g/dL (6.5-8.0)
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
[2024-07-23 17:11] LABS: Basophils Percent Auto 0.7 % (0-2); Eosinophils Absolute Auto 0.2 X10*3/uL (0.0-0.4); Eosinophils Percent Auto 4.1 % (0-4); Hematocrit 42.4 % (42.0-52.0); Hemoglobin 14.5 g/dl (14.0-18.0); Imm Gran Abs Auto 0.01 X10*3/uL (0.00-0.03); Imm Gran Pct Auto 0.2 % (0.0-0.4); Lymphocytes Absolute Auto 2.7 X10*3/uL (1.2-4.9); Lymphocytes Percent Auto 48.5 % (20-40); Mean Corpuscular HGB Conc 34.2 g/dl (31.0-36.0); Mean Corpuscular Hemoglobin 30.1 pg (27.0-33.0); Mean Corpuscular Volume 88.1 fL (80.0-98.0); Mean Platelet Volume 9.9 fL (9.4-12.4); Monocytes Absolute Auto 0.5 X10*3/uL (0.1-1.2); Monocytes Percent Auto 8.8 % (2-11); Neutrophils Absolute Auto 2.1 x10*3/uL (2.0-8.3); Neutrophils Percent Auto 37.7 % (45-73); Platelet Count 244 X10*3/uL (160-400); Red Blood Count 4.81 X10*6/uL (4.60-5.80); Red Cell Distribution Width 13.5 % (11.0-16.0); White Blood Count 5.7 X10*3/uL (4.8-10.8)
[2024-07-23 18:20] VITALS: BP 176/97; PULSE 69; RESP 16; TEMP 36.8; O2SAT 98
[2024-07-23 20:00] VITALS: BP 168/98; PULSE 68; RESP 18; TEMP 36.8; O2SAT 97
--- NOTE | 2024-07-23 20:11 | MHC.EDTECH ---
This tech took over care of patient at 1900,rounds and vitals completed,BY is elevated 168/98,RN made aware,call figueroa in reach
[2024-07-23 22:10] VITALS: BP 168/98; PULSE 68; RESP 18; TEMP 36.8; O2SAT 97
== END 2024-07-23 22:11 | disposition home or self-care (01) ==
PROVIDERS: Emergency Provider Internal Medicine; PCP Internal Medicine
DX: K64.9 Unspecified hemorrhoids (principal); K62.5 Hemorrhage of anus and rectum; I10 Essential (primary) hypertension; E78.5 Hyperlipidemia, unspecified; B19.20 Unspecified viral hepatitis C without hepatic coma; Z86.718 Personal history of other venous thrombosis and embolism; Z79.899 Other long term (current) drug therapy; Z79.02 Long term (current) use of antithrombotics/antiplatelets
CPT/HCPCS: 36415; 80053; 85025; 99283

== ENCOUNTER 2024-07-28 15:34 | Outpatient (AMB) | payer OTHER, SELFPAY ==
[2024-07-28 15:41] LABS: Prothrombin Time Whole Bld POC 39.1 sec (11.1-13.5); ~PT, ~INR - Anti Coag Clinic 3.3 (0.9-1.1)
--- NOTE | 2024-07-28 15:49 | MHC.OFFVISCO ---
Intake Intake Visit Reasons: Anticoagulation Allergies No Known Drug Allergies [NO KNOWN DRUG ALLERGIES] Allergy (Mild, Verified 07/28/24 15:40) NONE Medication List - Last Reconciled 07/28/24 by Zainab Rodriguez RN albuterol sulfate 90 mcg/actuation (ProAir HFA) 2 puffs inhalation Q4-6H PRN fluoride (sodium) 1.1% (PreviDent 5000 Booster Plus) dental BID fluticasone propionate 110 mcg/actuation (Flovent HFA) 1 puff PO BID hydrocortisone acetate (Anusol-HC) 25 mg IN BID lisinopril 10 mg PO DAILY 30 days meclizine 25 mg PO DAILY PRN oxycodone 5 mg PO Q8H PRN rosuvastatin 5 mg PO BEDTIME sildenafil (Viagra) 100 mg PO DAILY PRN tamsulosin 0.4 mg PO DAILY 90 days tizanidine 2 mg PO Q6H PRN warfarin 7.5 mg See Protocol PO DAILY@1800 Nursing Note 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 INR 3.3?out of therapeutic range of 2.5-3.0 Medications and supplements reviewed Patient status: feels well Medications or supplements: no changes Diet: usual diet for pt Denies any signs and symptoms of bleeding or clotting or unusual bruising Bleeding, bruising, clotting discussed Nutritional guidance given: suggested for pt to have a serving of greens but pt stated he would not have today so dose decreased Dose: 2.5mg (5mg) today then usual dose of 7.5mg X 4 days and 5mg X 3 days F/U INR Date : 2 weeks?? Patient verbalizing understanding of instructions given. 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
== END 2024-07-28 16:04 | disposition home or self-care (01) ==
LOC: HO.ACS 15:34
PROVIDERS: PCP Internal Medicine; Visit Provider Internal Medicine
DX: Z79.01 Long term (current) use of anticoagulants (principal)

== ENCOUNTER → 2024-07-28 15:34 | Outpatient (BNVA) | payer OTHER, SELFPAY | PROVIDERS: PCP Internal Medicine; Visit Provider Internal Medicine | DX: I26.99 Other pulmonary embolism without acute cor pulmonale (principal); I82.409 Acute embolism and thrombosis of unspecified deep veins of unspecified lower extremity; Z79.01 Long term (current) use of anticoagulants; Z51.81 Encounter for therapeutic drug level monitoring | CPT/HCPCS: 85610; 99211 ==

== ENCOUNTER 2024-08-11 15:18 | Outpatient (AMB) | payer OTHER, SELFPAY ==
[2024-08-11 15:25] LABS: Prothrombin Time Whole Bld POC 24.6 sec (11.1-13.5); ~PT, ~INR - Anti Coag Clinic 2.1 (0.9-1.1)
--- NOTE | 2024-08-11 15:34 | MHC.OFFVISCO ---
Intake Intake Visit Reasons: Anticoagulation Allergies No Known Drug Allergies [NO KNOWN DRUG ALLERGIES] Allergy (Mild, Verified 08/11/24 15:19) NONE Medication List - Last Reconciled 08/11/24 by Yi Briggs RN albuterol sulfate 90 mcg/actuation (ProAir HFA) 2 puffs inhalation Q4-6H PRN fluoride (sodium) 1.1% (PreviDent 5000 Booster Plus) dental BID fluticasone propionate 110 mcg/actuation (Flovent HFA) 1 puff PO BID hydrocortisone acetate (Anusol-HC) 25 mg [place] BID lisinopril 10 mg PO DAILY 30 days meclizine 25 mg PO DAILY PRN oxycodone 5 mg PO Q8H PRN rosuvastatin 5 mg PO BEDTIME sildenafil (Viagra) 100 mg PO DAILY PRN tamsulosin 0.4 mg PO DAILY 90 days tizanidine 2 mg PO Q6H PRN warfarin 7.5 mg See Protocol PO DAILY@1800 Nursing Note INR 2.1 out of therapeutic range Medications and supplements reviewed Patient status: No changes Medications or supplements: no changes Diet: good Denies any signs and symptoms of bleeding or clotting or unusual bruising Bleeding, bruising, clotting discussed Nutritional guidance given: cont to eat a mix of fruits and vegetables, avoid greens today and eat foods to help raise the INR and try not to over compensate Dose: keep same for now 5mg x 3 days/ 7.5mg x 4 days F/U INR Date : 2 weeks ?? Patient verbalizing understanding of instructions given. Anti-Coag Initial Assessment Social Hx Patient Tobacco Use Status: Never used Tobacco alcohol intake: former Alcohol intake frequency: does not drink Coding Level of Care Code Est Patient Level 1 Diagnoses Current use of anticoagulant therapy Z79.01 Results AMB INR Fingerstick AMB INR Fingerstick 2.1 Last Edit by Yi Briggs RN on 08/11/24 15:26 MANUAL ENTRY Assessment & Plan Assessment & Plan (1) Current use of anticoagulant therapy: Code(s): Z79.01 - prison (current) use of anticoagulants Category: Medical
== END 2024-08-11 15:39 | disposition home or self-care (01) ==
LOC: HO.ACS 15:18
PROVIDERS: PCP Internal Medicine; Visit Provider Internal Medicine
DX: Z79.01 Long term (current) use of anticoagulants (principal)

== ENCOUNTER → 2024-08-11 15:18 | Outpatient (BNVA) | payer OTHER, SELFPAY | PROVIDERS: PCP Internal Medicine; Visit Provider Internal Medicine | DX: I26.99 Other pulmonary embolism without acute cor pulmonale (principal); I82.409 Acute embolism and thrombosis of unspecified deep veins of unspecified lower extremity; Z79.01 Long term (current) use of anticoagulants; Z51.81 Encounter for therapeutic drug level monitoring | CPT/HCPCS: 85610; 99211 ==

== ENCOUNTER 2024-09-07 14:35 | Outpatient (AMB) | payer OTHER, SELFPAY ==
--- NOTE | 2024-09-07 14:49 | MHC.OFFVISCO ---
Intake Intake Visit Reasons: Anticoagulation Allergies No Known Drug Allergies [NO KNOWN DRUG ALLERGIES] Allergy (Mild, Verified 09/07/24 14:46) NONE Medication List - Last Reconciled 09/07/24 by Trini Graham RN albuterol sulfate 90 mcg/actuation (ProAir HFA) 2 puffs inhalation Q4-6H PRN fluoride (sodium) 1.1% (PreviDent 5000 Booster Plus) dental BID fluticasone propionate 110 mcg/actuation (Flovent HFA) 1 puff PO BID hydrocortisone acetate (Anusol-HC) 25 mg MD BID lisinopril 10 mg PO DAILY 30 days meclizine 25 mg PO DAILY PRN oxycodone 5 mg PO Q8H PRN rosuvastatin 5 mg PO BEDTIME sildenafil (Viagra) 100 mg PO DAILY PRN tamsulosin 0.4 mg PO DAILY 90 days tizanidine 2 mg PO Q6H PRN warfarin 7.5 mg See Protocol PO DAILY@1800 Nursing Note INR: 2.8- in therapeutic range of 2.5-3 Medications and supplements reviewed- no changes No changes in health, diet, medications, or supplements, Denies any signs and symptoms of bleeding or bruising or clotting. Bleeding, bruising, clotting discussed Nutritional guidance given Dose: 5mg x 3, 7.5mg x 4 F/U INR: 2 weeks Patient verbalizes understanding of instructions given Anti-Coag Initial Assessment Social Hx Patient Tobacco Use Status: Never used Tobacco alcohol intake: former Alcohol intake frequency: does not drink Coding Level of Care Code Est Patient Level 1 Diagnoses Current use of anticoagulant therapy Z79.01 Results AMB INR Fingerstick AMB INR Fingerstick 2.8 Last Edit by Trini Graham RN on 09/07/24 14:51 interface delay Assessment & Plan Assessment & Plan (1) Current use of anticoagulant therapy: Code(s): 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
[2024-09-07 14:52] LABS: Prothrombin Time Whole Bld POC 33.3 sec (11.1-13.5); ~PT, ~INR - Anti Coag Clinic 2.8 (0.9-1.1)
== END 2024-09-07 14:57 | disposition home or self-care (01) ==
LOC: HO.ACS 14:35
PROVIDERS: PCP Internal Medicine; Visit Provider Internal Medicine
DX: Z79.01 Long term (current) use of anticoagulants (principal)

== ENCOUNTER → 2024-09-07 14:35 | Outpatient (BNVA) | payer OTHER, SELFPAY | PROVIDERS: PCP Internal Medicine; Visit Provider Internal Medicine | DX: I26.99 Other pulmonary embolism without acute cor pulmonale (principal); I82.409 Acute embolism and thrombosis of unspecified deep veins of unspecified lower extremity; Z79.01 Long term (current) use of anticoagulants; Z51.81 Encounter for therapeutic drug level monitoring | CPT/HCPCS: 85610; 99211 ==

== ENCOUNTER 2024-09-21 14:53 | Outpatient (AMB) | payer OTHER, SELFPAY ==
--- NOTE | 2024-09-21 14:59 | MHC.OFFVISCO ---
Intake Intake Visit Reasons: Anticoagulation Allergies No Known Drug Allergies [NO KNOWN DRUG ALLERGIES] Allergy (Mild, Verified 09/21/24 14:55) NONE Medication List - Last Reconciled 09/21/24 by Trini Graham RN albuterol sulfate 90 mcg/actuation (ProAir HFA) 2 puffs inhalation Q4-6H PRN fluoride (sodium) 1.1% (PreviDent 5000 Booster Plus) dental BID fluticasone propionate 110 mcg/actuation (Flovent HFA) 1 puff PO BID hydrocortisone acetate (Anusol-HC) 25 mg [place] BID lisinopril 10 mg PO DAILY 30 days meclizine 25 mg PO DAILY PRN oxycodone 5 mg PO Q8H PRN rosuvastatin 5 mg PO BEDTIME sildenafil (Viagra) 100 mg PO DAILY PRN tamsulosin 0.4 mg PO DAILY 90 days tizanidine 2 mg PO Q6H PRN warfarin 7.5 mg See Protocol PO DAILY@1800 Nursing Note INR: 2.5- in therapeutic range of 2.5-3 Medications and supplements reviewed No changes in health, diet, medications, or supplements, Denies any signs and symptoms of bleeding or bruising or clotting. Bleeding, bruising, clotting discussed Nutritional guidance given - no greens for 2 days, eat a red today Dose: 5mg x 3, 7.5mg x 4 F/U INR: 2 weeks Patient verbalizes understanding of instructions given Anti-Coag Initial Assessment Social Hx Patient Tobacco Use Status: Never used Tobacco alcohol intake: former Alcohol intake frequency: does not drink Coding Level of Care Code Est Patient Level 1 Diagnoses Current use of anticoagulant therapy Z79.01 Results AMB INR Fingerstick AMB INR Fingerstick 2.5 Last Edit by Trini Graham RN on 09/21/24 15:00 Assessment & Plan Assessment & Plan (1) Current use of anticoagulant therapy: 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
[2024-09-21 15:01] LABS: ~PT, ~INR - Anti Coag Clinic 2.5 (0.9-1.1)
== END 2024-09-21 15:04 | disposition home or self-care (01) ==
LOC: HO.ACS 14:53
PROVIDERS: PCP Internal Medicine; Visit Provider Internal Medicine
DX: Z79.01 Long term (current) use of anticoagulants (principal)

== ENCOUNTER → 2024-09-21 14:53 | Outpatient (BNVA) | payer OTHER, SELFPAY | PROVIDERS: PCP Internal Medicine; Visit Provider Internal Medicine | DX: I26.99 Other pulmonary embolism without acute cor pulmonale (principal); I82.409 Acute embolism and thrombosis of unspecified deep veins of unspecified lower extremity; Z79.01 Long term (current) use of anticoagulants; Z51.81 Encounter for therapeutic drug level monitoring | CPT/HCPCS: 85610; 99211 ==

== ENCOUNTER 2024-10-05 10:24 | Outpatient (REF) | payer OTHER, SELFPAY ==
[2024-10-05 12:32] LABS: Alanine Aminotransferase 38 U/L (0-40); Albumin Level 4.2 g/dL (3.5-5.0); Alkaline Phosphatase 67 U/L (39-117); Anion Gap 9 (12-20); Aspartate Amino Transferase 38 U/L (5-37); Bilirubin Total 0.5 mg/dL (0.0-1.0); Blood Urea Nitrogen 16 mg/dL (9-16); Calcium 8.7 mg/dL (8.4-10.2); Carbon Dioxide 27 mmol/L (22-29); Chloride 107 mmol/L (96-108); Cholesterol 171 mg/dL (<200); Estimated Glomerular Filt Rate > 60; Glucose Random 106 mg/dL (60-115); HDL Cholesterol 42 mg/dL (>40); LDL Cholesterol Calculated 94 mg/dL (<100); Sodium 139 mmol/L (135-145); Total Protein 7.5 g/dL (6.5-8.0); Triglycerides 179 mg/dL (<150)
== END 2024-10-05 10:25 | disposition home or self-care (01) ==
LOC: HO.HHCL 10:24
PROVIDERS: Visit Provider Internal Medicine
DX: I10 Essential (primary) hypertension (principal); E78.00 Pure hypercholesterolemia, unspecified; I26.99 Other pulmonary embolism without acute cor pulmonale; Z86.718 Personal history of other venous thrombosis and embolism; Z51.81 Encounter for therapeutic drug level monitoring; Z79.01 Long term (current) use of anticoagulants
CPT/HCPCS: 36415; 80053; 80061; 85610; 99211

== ENCOUNTER 2024-10-05 15:28 | Outpatient (AMB) | payer OTHER, SELFPAY ==
--- NOTE | 2024-10-05 15:32 | MHC.OFFVISCO ---
Intake Intake Visit Reasons: Anticoagulation Allergies No Known Drug Allergies [NO KNOWN DRUG ALLERGIES] Allergy (Mild, Verified 10/05/24 15:29) NONE Medication List - Last Reconciled 10/05/24 by Trini Graham RN albuterol sulfate 90 mcg/actuation (ProAir HFA) 2 puffs inhalation Q4-6H PRN fluoride (sodium) 1.1% (PreviDent 5000 Booster Plus) dental BID fluticasone propionate 110 mcg/actuation (Flovent HFA) 1 puff PO BID hydrocortisone acetate (Anusol-HC) 25 mg [place] BID lisinopril 10 mg PO DAILY 30 days meclizine 25 mg PO DAILY PRN oxycodone 5 mg PO Q8H PRN rosuvastatin 5 mg PO BEDTIME sildenafil (Viagra) 100 mg PO DAILY PRN tamsulosin 0.4 mg PO DAILY 90 days tizanidine 2 mg PO Q6H PRN warfarin 7.5 mg See Protocol PO DAILY@1800 Nursing Note INR 1.7? out of therapeutic range of 2.5-3 pt states missed a dose yesterday Medications and supplements reviewed Patient status: pt states missed a dose yesterday Medications or supplements: no changes Diet: same Denies any signs and symptoms of bleeding or clotting or unusual bruising Bleeding, bruising, clotting discussed Nutritional guidance given: no flora, eat reds to raise Dose: already took warfarin this am, take 10mg tomm then cont reg dosing, 7.5mg x 4, 5mg x 3 F/U INR Date : thu10/10/24?? Patient verbalizing understanding of instructions given. 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 spoke to komal at 1545, ? lovenox, aware of missed dose Anti-Coag Initial Assessment Social Hx Patient Tobacco Use Status: Never used Tobacco alcohol intake: former Alcohol intake frequency: does not drink Coding Level of Care Code Est Patient Level 1 Diagnoses Current use of anticoagulant therapy Z79.01 Results AMB INR Fingerstick AMB INR Fingerstick 1.7 Last Edit by Trini Graham RN on 10/05/24 15:34 interface delay Assessment & Plan Assessment & Plan (1) Current use of anticoagulant therapy: Code(s): Z79.01 - alf (current) use of anticoagulants Category: Medical
[2024-10-06 09:30] LABS: Prothrombin Time Whole Bld POC 20.7 sec (11.1-13.5); ~PT, ~INR - Anti Coag Clinic 1.7 (0.9-1.1)
== END 2024-10-05 15:48 | disposition home or self-care (01) ==
LOC: HO.ACS 15:28
PROVIDERS: PCP Internal Medicine; Visit Provider Internal Medicine
DX: Z79.01 Long term (current) use of anticoagulants (principal)

== ENCOUNTER 2024-10-10 09:49 | Outpatient (AMB) | payer OTHER, SELFPAY ==
--- NOTE | 2024-10-10 10:29 | MHC.OFFVISCO ---
Intake Intake Visit Reasons: Anticoagulation Allergies No Known Drug Allergies [NO KNOWN DRUG ALLERGIES] Allergy (Mild, Verified 10/05/24 15:29) NONE Nursing Note INR: 2.8 in therapeutic range (2.5-3) PREVIOUS IN R1.7 - NO LOVENOX PER PCP Medications and supplements reviewed No changes in health, diet, medications, or supplements, Denies any signs and symptoms of bleeding or bruising or clotting. Bleeding, bruising, clotting discussed Nutritional guidance given REVIEW FOOD LIST WEEKLY AND DURING THE HOLIDAYS Dose: RESUME USUAL DOSE 5MG X 3 DAYS/ 7.5MG X 4 DAYS F/U INR: 2 WEEKS Patient verbalizes understanding of instructions given Anti-Coag Initial Assessment Social Hx Patient Tobacco Use Status: Never used Tobacco alcohol intake: former Alcohol intake frequency: does not drink Questionnaires HAS-BLED Does the patient had uncontrolled Hypertension?: No Does the patient have renal disease?: No Does the patient have liver disease?: Yes (hep c) Does the patient have a history of stroke?: No Has the patient had major bleeding or predisposition to bleeding?: Yes Does the patient have labile INRs?: Yes Is the patient over 65 years of age?: Yes Is the patient on medications that gives them a predisposition to bleeding?: Yes Does the patient use alcohol?: No HAS-BLED Score: 5 CHADSVASC Age: 66-74 Gender: Male Does the patient have a history of CHF?: No Does the patient have a history of Hypertension?: Yes Does the patient have a history of Stroke/TIA/Thromboembolism?: Yes Does the patient have a history of Vascular Disease (prior GA, PAD or aortic plaque)?: No Does the patient have a history of Diabetes?: No CHADS VACS Score: 4 Natalie Prediction Score Rsk VTE Active Cancer: No Previous VTE, excluding superficial vein thrombosis: Yes Reduced mobility: No 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 ) With-in last month Trauma and/or Surgery: No Elderly 70 year or older: No Heart and/or Respiratory Failure: No Acute Myocardial infarction and/or Ischemic Stroke: No Acute Infection and/or Rheumatologic Disorder: No Obesity (BMI 30 or greater): No Ongoing Hormonal Treatment: No Score: 6 Natalie Score less than 4; Low Risk of VTE Natalie Score 4 or greater; High Risk of VTE Coding Level of Care Code Est Patient Level 1 Diagnoses Current use of anticoagulant therapy Z79.01 Results AMB INR Fingerstick AMB INR Fingerstick 2.8 Last Edit by Yi Briggs RN on 10/10/24 10:27 NO INTERFACING MANUAL ENTRY Assessment & Plan Assessment & Plan (1) Current use of anticoagulant therapy: Code(s): Z79.01 - termination clerk (current) use of anticoagulants Category: Medical
[2024-10-10 11:19] LABS: ~PT, ~INR - Anti Coag Clinic 2.8 (0.9-1.1)
== END 2024-10-10 10:35 | disposition home or self-care (01) ==
LOC: HO.ACS 09:49
PROVIDERS: PCP Internal Medicine; Visit Provider Internal Medicine
DX: Z79.01 Long term (current) use of anticoagulants (principal)

== ENCOUNTER → 2024-10-10 09:49 | Outpatient (BNVA) | payer OTHER, SELFPAY | PROVIDERS: PCP Internal Medicine; Visit Provider Internal Medicine | DX: I26.99 Other pulmonary embolism without acute cor pulmonale (principal); I82.409 Acute embolism and thrombosis of unspecified deep veins of unspecified lower extremity; Z79.01 Long term (current) use of anticoagulants; Z51.81 Encounter for therapeutic drug level monitoring | CPT/HCPCS: 85610; 99211 ==

== ENCOUNTER 2024-10-24 15:16 | Outpatient (AMB) | payer OTHER, SELFPAY ==
[2024-10-24 15:21] LABS: Prothrombin Time Whole Bld POC 37.3 sec (11.1-13.5); ~PT, ~INR - Anti Coag Clinic 3.1 (0.9-1.1)
--- NOTE | 2024-10-24 15:25 | MHC.OFFVISCO ---
Intake Intake Visit Reasons: Anticoagulation Allergies No Known Drug Allergies [NO KNOWN DRUG ALLERGIES] Allergy (Mild, Verified 10/24/24 15:16) NONE Medication List - Last Reconciled 10/24/24 by Zainab Rodriguez RN albuterol sulfate 90 mcg/actuation (ProAir HFA) 2 puffs inhalation Q4-6H PRN fluoride (sodium) 1.1% (PreviDent 5000 Booster Plus) dental BID fluticasone propionate 110 mcg/actuation (Flovent HFA) 1 puff PO BID hydrocortisone acetate (Anusol-HC) 25 mg [place] BID lisinopril 10 mg PO DAILY 30 days meclizine 25 mg PO DAILY PRN oxycodone 5 mg PO Q8H PRN rosuvastatin 5 mg PO BEDTIME sildenafil (Viagra) 100 mg PO DAILY PRN tamsulosin 0.4 mg PO DAILY 90 days tizanidine 2 mg PO Q6H PRN warfarin 7.5 mg See Protocol PO DAILY@1800 Nursing Note INR 3.1?out of therapeutic range of 2.5-3.0 Medications and supplements reviewed Patient status: no changes Medications or supplements: no changes Diet: usual diet for pt Denies any signs and symptoms of bleeding or clotting or unusual bruising Bleeding, bruising, clotting discussed Nutritional guidance given Dose: 5mg X 3 days and 7.5mg X 4 days F/U INR Date : 2 weeks? Patient verbalizing understanding of instructions given. Anti-Coag Initial Assessment Social Hx Patient Tobacco Use Status: Never used Tobacco alcohol intake: former Alcohol intake frequency: does not drink Coding Level of Care Code Est Patient Level 1 Diagnoses Current use of anticoagulant therapy Z79.01 Results AMB INR Fingerstick AMB INR Fingerstick 3.1 Last Edit by Zainab Rodriguez RN on 10/24/24 15:24 interface delay Assessment & Plan Assessment & Plan (1) Current use of anticoagulant therapy: Code(s): Z79.01 - retirement (current) use of anticoagulants Category: Medical
== END 2024-10-24 15:28 | disposition home or self-care (01) ==
LOC: HO.ACS 15:16
PROVIDERS: PCP Internal Medicine; Visit Provider Internal Medicine
DX: Z79.01 Long term (current) use of anticoagulants (principal)

== ENCOUNTER → 2024-10-24 15:16 | Outpatient (BNVA) | payer OTHER, SELFPAY | PROVIDERS: PCP Internal Medicine; Visit Provider Internal Medicine | DX: I26.99 Other pulmonary embolism without acute cor pulmonale (principal); I82.409 Acute embolism and thrombosis of unspecified deep veins of unspecified lower extremity; Z79.01 Long term (current) use of anticoagulants; Z51.81 Encounter for therapeutic drug level monitoring | CPT/HCPCS: 85610; 99211 ==

== ENCOUNTER 2024-11-14 12:06 | Outpatient (AMB) | payer OTHER, SELFPAY ==
[2024-11-14 12:12] LABS: Prothrombin Time Whole Bld POC 30.2 sec (11.1-13.5); ~PT, ~INR - Anti Coag Clinic 2.5 (0.9-1.1)
--- NOTE | 2024-11-14 12:15 | MHC.OFFVISCO ---
Intake Intake Visit Reasons: Anticoagulation Allergies No Known Drug Allergies [NO KNOWN DRUG ALLERGIES] Allergy (Mild, Verified 11/14/24 12:07) NONE Medication List - Last Reconciled 11/14/24 by Yi Briggs RN albuterol sulfate 90 mcg/actuation (ProAir HFA) 2 puffs inhalation Q4-6H PRN fluoride (sodium) 1.1% (PreviDent 5000 Booster Plus) dental BID fluticasone propionate 110 mcg/actuation (Flovent HFA) 1 puff PO BID hydrocortisone acetate (Anusol-HC) 25 mg [place] BID lisinopril 10 mg PO DAILY 30 days meclizine 25 mg PO DAILY PRN oxycodone 5 mg PO Q8H PRN rosuvastatin 5 mg PO BEDTIME sildenafil (Viagra) 100 mg PO DAILY PRN tamsulosin 0.4 mg PO DAILY 90 days tizanidine 2 mg PO Q6H PRN warfarin 7.5 mg See Protocol PO DAILY@1800 Nursing Note INR: 2.5 in therapeutic range Medications and supplements reviewed No changes in health, diet, medications, or supplements, Denies any signs and symptoms of bleeding or bruising or clotting. Bleeding, bruising, clotting discussed Nutritional guidance given Dose: 5mg sun tue thur/ 7.5mg x 4 days F/U INR: 3 weeks Patient verbalizes understanding of instructions given Anti-Coag Initial Assessment Social Hx Patient Tobacco Use Status: Never used Tobacco alcohol intake: former Alcohol intake frequency: does not drink Coding Level of Care Code Est Patient Level 1 Diagnoses Current use of anticoagulant therapy Z79.01 Assessment & Plan Assessment & Plan (1) Current use of anticoagulant therapy: Code(s): Z79.01 - termination clerk (current) use of anticoagulants Category: Medical
== END 2024-11-14 12:16 | disposition home or self-care (01) ==
LOC: HO.ACS 12:06
PROVIDERS: PCP Internal Medicine; Visit Provider Internal Medicine
DX: Z79.01 Long term (current) use of anticoagulants (principal)

== ENCOUNTER → 2024-11-14 12:06 | Outpatient (BNVA) | payer OTHER, SELFPAY | PROVIDERS: PCP Internal Medicine; Visit Provider Internal Medicine | DX: I26.99 Other pulmonary embolism without acute cor pulmonale (principal); I82.409 Acute embolism and thrombosis of unspecified deep veins of unspecified lower extremity; Z79.01 Long term (current) use of anticoagulants; Z51.81 Encounter for therapeutic drug level monitoring | CPT/HCPCS: 85610; 99211 ==

== ENCOUNTER 2024-12-07 15:24 | Outpatient (AMB) | payer OTHER, SELFPAY ==
--- NOTE | 2024-12-07 15:29 | MHC.OFFVISCO ---
Intake Intake Visit Reasons: Anticoagulation Allergies No Known Drug Allergies [NO KNOWN DRUG ALLERGIES] Allergy (Mild, Verified 12/07/24 15:24) NONE Medication List - Last Reconciled 12/07/24 by Trini Graham RN albuterol sulfate 90 mcg/actuation (ProAir HFA) 2 puffs inhalation Q4-6H PRN fluoride (sodium) 1.1% (PreviDent 5000 Booster Plus) dental BID fluticasone propionate 110 mcg/actuation (Flovent HFA) 1 puff PO BID hydrocortisone acetate (Anusol-HC) 25 mg [place] BID lisinopril 10 mg PO DAILY 30 days meclizine 25 mg PO DAILY PRN oxycodone 5 mg PO Q8H PRN rosuvastatin 5 mg PO BEDTIME sildenafil (Viagra) 100 mg PO DAILY PRN tamsulosin 0.4 mg PO DAILY 90 days tizanidine 2 mg PO Q6H PRN warfarin 7.5 mg See Protocol PO DAILY@1800 Nursing Note INR: 2.9- in therapeutic range of 2.5-3.0 Medications and supplements reviewed- no changes No changes in health, diet, medications, or supplements, Denies any signs and symptoms of bleeding or bruising or clotting. Bleeding, bruising, clotting discussed Nutritional guidance given Dose: 5mg x 3, 7.5mg x 4 F/U INR: 3 weeks Patient verbalizes understanding of instructions given Anti-Coag Initial Assessment Social Hx Patient Tobacco Use Status: Never used Tobacco alcohol intake: former Alcohol intake frequency: does not drink Coding Level of Care Code Est Patient Level 1 Diagnoses Current use of anticoagulant therapy Z79.01 Results AMB INR Fingerstick AMB INR Fingerstick 2.9 Last Edit by Trini Graham RN on 12/07/24 15:31 interface delay Assessment & Plan Assessment & Plan (1) Current use of anticoagulant therapy: Code(s): Z79.01 - termite helper (current) use of anticoagulants Category: Medical
[2024-12-07 15:32] LABS: Prothrombin Time Whole Bld POC 34.9 sec (11.1-13.5); ~PT, ~INR - Anti Coag Clinic 2.9 (0.9-1.1)
== END 2024-12-07 15:52 | disposition home or self-care (01) ==
LOC: HO.ACS 15:24
PROVIDERS: PCP Internal Medicine; Visit Provider Internal Medicine
DX: Z79.01 Long term (current) use of anticoagulants (principal)

== ENCOUNTER → 2024-12-07 15:24 | Outpatient (BNVA) | payer OTHER, SELFPAY | PROVIDERS: PCP Internal Medicine; Visit Provider Internal Medicine | DX: I26.99 Other pulmonary embolism without acute cor pulmonale (principal); I82.409 Acute embolism and thrombosis of unspecified deep veins of unspecified lower extremity; Z79.01 Long term (current) use of anticoagulants; Z51.81 Encounter for therapeutic drug level monitoring | CPT/HCPCS: 85610; 99211 ==

== ENCOUNTER 2024-12-28 15:39 | Outpatient (AMB) | payer OTHER, SELFPAY ==
[2024-12-28 15:43] LABS: ~PT, ~INR - Anti Coag Clinic 1.7 (0.9-1.1)
--- NOTE | 2024-12-28 15:53 | MHC.OFFVISCO ---
Intake Intake Visit Reasons: Anticoagulation Allergies No Known Drug Allergies [NO KNOWN DRUG ALLERGIES] Allergy (Mild, Verified 12/28/24 15:39) NONE Medication List - Last Reconciled 12/28/24 by Bre Hayes RN albuterol sulfate 90 mcg/actuation (ProAir HFA) 2 puffs inhalation Q4-6H PRN fluoride (sodium) 1.1% (PreviDent 5000 Booster Plus) dental BID fluticasone propionate 110 mcg/actuation (Flovent HFA) 1 puff PO BID hydrocortisone acetate (Anusol-HC) 25 mg [place] BID lisinopril 10 mg PO DAILY 30 days meclizine 25 mg PO DAILY PRN oxycodone 5 mg PO Q8H PRN rosuvastatin 5 mg PO BEDTIME sildenafil (Viagra) 100 mg PO DAILY PRN tamsulosin 0.4 mg PO DAILY 90 days tizanidine 2 mg PO Q6H PRN warfarin 7.5 mg See Protocol PO DAILY@1800 Nursing Note PT. STATES THAT HE MISSED 1 DOSE THIS WEEK. NO CP,SOB MED CHANGES OR SX OF BLEEDING. BOOST WARFARIN TO 10MGM 2 DAYS AND RETEST HERE ON 12/30/24. NO GREENS IN MEANTIME. WILL INCREASED REDS. GOOD UNDERSTANDING OF DOSING INSTR. PCP(DG)NOTIFIED OF LOW INR AND PLAN OF CARE. ? LOVENOX Anti-Coag Initial Assessment Social Hx Patient Tobacco Use Status: Never used Tobacco alcohol intake: former Alcohol intake frequency: does not drink Coding Level of Care Code Est Patient Level 1 Diagnoses Current use of anticoagulant therapy Z79.01 Assessment & Plan Assessment & Plan (1) Current use of anticoagulant therapy: Code(s): Z79.01 - residential (current) use of anticoagulants Category: Medical
--- OUTSIDE RECORDS SUMMARY | 2024-12-28 16:24 | XMS_ITS | Encounter Summary ---
Author Organization [facility] Address [address] [place] [address] Care Team Providers Care Community Integration Specialist Name Role Phone Sancho Yoon MD Primary Care Provide r Reason for Visit * Reason Comments Med Refill Encounter Details Date Type Department Care Team ([facility] st Contact Info) Description 10/21/2023 Refill [facility] [address], [place] [phone] Sancho Yoon MD [address] [place] [address] Pure hypercholesterolemia Social History Tobacco Use Types Packs/Day Years Used Date Smoking Tobacco: Never Passive Smoke Exposure: Never Smokeless Tobacco: Never Alcohol Use Standard Drinks/Week Comments Not Currently 0 (1 standard drink = 0.6 oz pur e alcohol) Depression Answer Date Recorded Patient Health Questionnaire-9 Score 3 03/23/2023 Housing Stability Answer Date Recorded What is your housing situation today? I have nay hernandez 08/31/[address] you li ve. Do you have problems with any of the following? None of the above 08/31/2023 Food Insecurity Answer Date Recorded Within the past 12 months, y ou worried that your food would run out before you got money to buy more: Never True 08/31/2023 Within the past 12 months,th e food you bought just didn't last and you didn't have enough money to get more: Never True Transportation Answer Date Recorded In the past 12 months, has l ack of transportation kept you from medical appts, meetings, work or from getting things needed for daily living? No 08/31/2023 Utilities Answer Date Recorded In the past 12 months, has t he electric, gas, oil or water company threatened to shut off services in your home? No 08/31/2023 Depression Answer Date Recorded Patient Health Questionnaire-2 Score 3 03/23/2023 Sex and Gender Information Value Date Recorded Sex Assigned at Male 09/15/2022 10:16 AM EDT Legal Sex Male 10:16 AM EDT Gender Identity Male 09/15/2022 10:16 AM EDT Sexual Orientation Choose not to disclose 2021 3:29 PM EST documented as of this encounter Plan of Treatment Upcoming Encounters Date Type Department Care Team (Late st Contact Info) Description 01/26/2025 1:15 PM EDT Office Visit [facility] [address] [place] [address] Sancho Yoon MD [address] [place] [address] 03/15/2025 8:00 AM EDT Office Visit [facility] [address] [place] [address] Yi Sanchze documented as of this encounter Visit Diagnoses Diagnosis Pure hypercholesterolemia documented in this encounter Additional Health Concerns Assessment Noted Time PHQ-9 Depression Total Score: 3 03/23/20 23 1:07 PM EDT documented as of this encounter Care Teams Community Integration Specialist Relationship Specialty Start Date End Date Sancho Yoon MD [address] [place] [address] PCP - General Internal Medicine 08/16/14 documented as of this encounter
--- OUTSIDE RECORDS SUMMARY | 2024-12-28 16:24 | XMS_ITS | Encounter Summary ---
Author Organization [employer] [facility] Address [address] [place] [address] Care Team Providers Care Systems Management Consultant Name Role Phone Sancho Yoon MD Primary Care Provide r Encounter Details Date Type Department Care Team (Late Contact Info) Description 10/29/2022 Orders Only [facility] [address] [place] [phone] Sancho Yoon MD [address] [place] [address] [phone] Pleural scarring (Primary Dx); Abnormal chest CT Social History Tobacco Use Types Packs/Day Years Used Date Smoking Tobacco: Never Alcohol Use Standard Drinks/Week Comments Not Currently 0 (1 standard drink = 0.6 oz pur e alcohol) Sex and Gender Information Value Date Recorded Sex Assigned at Male 09/15/2022 10:16 AM EDT Legal Sex Male 10:16 AM EDT Gender Identity Male 09/15/2022 10:16 AM EDT Sexual Orientation Choose not to disclose 2021 3:29 PM EST COVID-19 Exposure Response Date Recorded In the last 10 days, have yo u been in contact with someone who was confirmed or suspected to have Coronavirus/COVID-19? No / Unsure 10/23/2022 8:50 AM EST documented as of this encounter Plan of Treatment Upcoming Encounters Date Type Department Care Team (Late Contact Info) Description 01/26/2025 1:15 PM EDT Office Visit [facility] [address] [place] [phone] Sancho Yoon MD [address] [place] [phone] 03/15/2025 8:00 AM EDT Office Visit [facility] [address] [facility] [place] [id number] Yi Sanchez documented as of this encounter Procedures Procedure Name Priority Date/Time Associated Diagnosis Comments PROTHROMBIN TIME WHOLE BLD POC Routine 12/18/2022 2:35 PM EST Pleural scarring ~PT, ~INR - ANTI COAG CLINIC Routine 12/18/2022 2:35 PM EST Pleural scarring PROTHROMBIN TIME WHOLE BLD POC Routine 12/11/2022 2:35 PM EST Pleural scarring ~PT, ~INR - ANTI COAG CLINIC Routine 12/11/2022 2:35 PM EST Pleural scarring PROTHROMBIN TIME WHOLE BLD POC Routine 12/04/2022 3:39 PM EST Pleural scarring ~PT, ~INR - ANTI COAG CLINIC Routine 12/04/2022 3:39 PM EST Pleural scarring LIVER FIBROSIS, FIBROTEST ACTITEST PANEL Routine 12/04/2022 10:15 AM EST Pleural scarring CBC WITH AUTO DIFFERENTIAL Routine 12/04/2022 10:15 AM EST Pleural scarring ALPHA FETOPROTEIN, TUMOR MARKER Routine 12/04/2022 10:15 AM EST Pleural scarring HEPATIC FUNCTION PANEL Routine 12/04/2022 10:15 AM EST Pleural scarring POCT CREATININE GFR Routine 12/04/2022 9 :49 AM EST Pleural scarring PROTHROMBIN TIME WHOLE BLD POC Routine 12/03/2022 2:54 PM EST Pleural scarring ~PT, ~INR - ANTI COAG CLINIC Routine 12/03/2022 2:54 PM EST Pleural scarring PROTHROMBIN TIME WHOLE BLD POC Routine 11/26/2022 2:46 PM EST Pleural scarring ~PT, ~INR - ANTI COAG CLINIC Routine 11/26/2022 2:46 PM EST Pleural scarring PROTHROMBIN TIME WHOLE BLD POC Routine 11/05/2022 3:33 PM EST Pleural scarring ~PT, ~INR - ANTI COAG CLINIC Routine 11/05/2022 3:33 PM EST Pleural scarring PROTHROMBIN TIME WHOLE BLD POC Routine 10/29/2022 3:11 PM EST Pleural scarring ~PT, ~INR - ANTI COAG CLINIC Routine 10/29/2022 3:11 PM EST Pleural scarring documented in this encounter Results * (ABNORMAL) PROTHROMBIN TIME WHOLE BLD POC (12/18/2022 2:35 PM EST) Protime 42.3(H) 11.1 - 13.5 sec [facility] 12/18/2022 2:35 PM EST 12/18/2022 2:37 PM EST us [facility] External Provider LAB BLO OD ORDERABLES Final Result [facility] [address] [place] [phone] * (ABNORMAL) ~PT, ~INR - ANTI COAG CLINIC (12/18/2022 2:35 PM EST) Prothrombin Time INR 3.5(H) 0.9 - 1.1 [facility] Comment:METER #: [id number] TERNATIONAL NORMALIZED RATIO (INR) REFERENCE RANGES Reference RangeFor patients not on anticoagulant therapy: 0.9 - 1.1INR ranges for oral anticoagulanttherapy:For prevention and treatment of venous thrombosis and pulmonary embolism: 2.0 - 3.0For acute myocardial infarction with aspirin therapy: 2.0 - 3.0For acute myocardial infarction without aspirin therapy: 3.0 - 4.0For patients with mechanical prosthetic heart valves: 2.5 - 3.5 12/18/2022 2:35 PM EST 12/18/2022 2:37 PM EST [facility] External Provider LAB BLO OD ORDERABLES Final Result Performing Organization Address [facility] Co de Phone Number [facility] [address] [place] [phone] * (ABNORMAL) PROTHROMBIN TIME WHOLE BLD POC (12/11/2022 2:35 PM EST) Protime 36.7(H) 11.1 - 13.5 sec [facility] 12/11/2022 2:35 PM EST 12/11/2022 2:36 PM EST [facility] External Provider LAB BLO OD ORDERABLES Final Result Performing Organization Address [facility] de Phone Number [facility] [address] [place] [address] [phone] * (ABNORMAL) ~PT, ~INR - ANTI COAG CLINIC (12/11/2022 2:35 PM EST) Prothrombin Time INR 3.1(H) 0.9 - 1.1 [facility] Comment:METER #: [id number] TERNATIONAL NORMALIZED RATIO (INR) REFERENCE RANGES Reference RangeFor patients not on anticoagulant therapy: 0.9 - 1.1INR ranges for oral anticoagulanttherapy:For prevention and treatment of venous thrombosis and pulmonary embolism: 2.0 - 3.0For acute myocardial infarction with aspirin therapy: 2.0 - 3.0For acute myocardial infarction without aspirin therapy: 3.0 - 4.0For patients with mechanical prosthetic heart valves: 2.5 - 3.5 12/11/2022 2:35 PM EST 12/11/2022 2:36 PM EST [facility] External Provider LAB BLO OD ORDERABLES Final Result Performing Organization Address [facility] Co de Phone Number [facility] [address] [place] [address] [phone] * (ABNORMAL) PROTHROMBIN TIME WHOLE BLD POC (12/04/2022 3:39 PM EST) Protime 56.8(H) 11.1 - 13.5 sec [facility] 12/04/2022 3:39 PM EST 12/04/2022 3:40 PM EST [facility] External Provider LAB BLO OD ORDERABLES Final Result Performing Organization Address [facility] Phone Number [facility] [address] [place] [address] [phone] * (ABNORMAL) ~PT, ~INR - ANTI COAG CLINIC (12/04/2022 3:39 PM EST) Prothrombin Time INR 4.7(H) 0.9 - 1.1 [facility] Comment:METER #: [id number] TERNATIONAL NORMALIZED RATIO (INR) REFERENCE RANGES Reference RangeFor patients not on anticoagulant therapy: 0.9 - 1.1INR ranges for oral anticoagulanttherapy:For prevention and treatment of venous thrombosis and pulmonary embolism: 2.0 - 3.0For acute myocardial infarction with aspirin therapy: 2.0 - 3.0For acute myocardial infarction without aspirin therapy: 3.0 - 4.0For patients with mechanical prosthetic heart valves: 2.5 - 3.5 12/04/2022 3:39 PM EST 12/04/2022 3:40 PM EST [facility] External Provider LAB BLO OD ORDERABLES Final Result Performing Organization Address [facility] Co de Phone Number [facility] [address] [place] [address] [phone] * (ABNORMAL) Liver Fibrosis, FibroTest-ActiTest Panel (12/04/2022 10:15 AM EST) Liver Fibrosis Score 0.58 [facility] Liver Fibrosis Stage F2 [facility] Liver Fibrosis Interpretation SEE NOTE [facility] Comment:moderate fibrosisFib ro Test Score (f) Metavir Score f>=0 and f<=0.21 : F0 (no fibrosis)f>0.21 and f<=0.27 : F0-F1 (no fibrosis)f>0.27 and f<=0.31 : F1 (minimal fibrosis)f>0.31 and f<=0.48 : F1-F2 (minimal fibrosis)f>0.48 and f<=0.58 : F2 (moderate fibrosis)f>0.58 and f<=0.72 : F3 (advanced fibrosis)f>0.72 and f<=0.74 : F3-F4 (advanced fibrosis)f>0.74 and f<=1.00 : F4 (severe fibrosis) Nec Inflam Act Score 0.41 [facility] Nec Inflam Act Grade A1-A2 [facility] Nec Inflam Act Interpretation SEE NOTE [facility] Comment:minimal activityActi Test Score (a) Metavir Score a>=0 and a<=0.17 : A0 (no activity)a>0.17 and a<=0.29 : A0-A1 (no activity)a>0.29 and a<=0.36 : A1 (minimal activity)a>0.36 and a<=0.52 : A1-A2 (minimal activity)a>0.52 and a<=0.60 : A2 (significant activity)a>0.60 and a<=0.62 : A2-A3 (significant activity)a>0.62 and a<=1.00 : A3 (severe activity) IJE-Wiugl-6-Macroglo bulin 275 106 - 279 mg/dL [facility] FIB-Haptoglobin 120 43 - 212 mg/dL [facility] FIB-Apolipoprotein A1 171 94 - 176 mg/dL [facility] FIB-Total Bilirubin 0.8 0.2 - 1.2 mg/dL [facility] FIB-GGT 64 3 - 70 U/L [facility] FIB-ALT 53(A) 9 - 46 U/L [facility] Reference ID [id number] [facility] Footnote SEE NOTE [facility] Comment: The reliability of results is dependent on compliance withthe preanalytical and analytical conditions recommended byBio[employer]. The tests have to be deferred for: acutehemolysis, acute hepatitis, acute inflammation, extrahepatic cholestasis. The advice of a specialist should besought for interpretation in chronic hemolysis and Gilbert'ssyndrome. The test interpretation is not validated in livertransplant patients. Isolated extreme values of one of thecomponents should lead to caution in interpreting theresults. In case of discordance between a biopsy result laya test, it is recommended to seek the advice of aspecialist. The causes of these discordances could be due toa flaw of the test or to a flaw in the biopsy: i.e. a liverbiopsy has a 33% variability rate for one fibrosis stage.FibroTest is interpretable for chronic hepatitis B and C,alcoholic and non alcoholic steatosis. ActiTest isinterpretable for chronic hepatitis B and C.The performance characteristics have been determined by[employer] [facility]. Ithas not been cleared or approved by the U.S. Food and DrugAdministration. Performance characteristics refer to theanalytical performance of the test.[employer], the associated logo, [facility] and all associated [employer] holloway are theregistered trademarks of [employer]. All third partymarks - (R) and (TM) - are the property of their respectiveowners. (C) [id number] [employer]. Allrights reserved.THIS TEST WAS PERFORMED AT:[email or web address]/Glance [id number] [place] ??[id number] JERNIGAN MD,PHD,DAYDAY 12/04/2022 10:1 5 AM EST 12/04/2022 10:15 AM EST us [facility] External Provider LAB BLO OD ORDERABLES Final Result [facility] [address] [place] [phone] * Alphafetoprotein, Tumor Marker (12/04/2022 10:15 AM EST) Alpha Fetoprotein 2.5 <6.1 ng/mL [facility] Comment:This test was perfor med using the Deacon Coulterchemiluminescent method. Values obtained fromdifferent assay methods cannot be usedinterchangeably. AFP levels, regardless ofvalue, should not be interpreted as absoluteevidence of the presence or absence of disease.THIS TEST WAS PERFORMED AT:[facility] [address] ([address])[place] [address]EMHVWTINO PALOMARES MD 12/04/2022 10:1 5 AM EST 12/04/2022 10:15 AM EST [facility] External Provider LAB BLO OD ORDERABLES Final Result Performing Organization Address [facility] Co de Phone Number [facility] [address] [place] [address] [phone] * (ABNORMAL) Hepatic Function Panel (12/04/2022 10:15 AM EST) Bilirubin, Total 1.0 0.0 - 1.0 mg/dL [facility] Bilirubin, Direct 0.3 0.0 - 0.5 mg/dL [facility] Aspartate Amino Transferase 35 5 - 37 U/L [facility] Alanine Aminotransferase 58(H) 0 - 40 U/L [facility] Total Protein 7.2 6.5 - 8.0 g/dL [facility] Albumin Level 4.2 3.5 - 5.0 g/dL [facility] Alkaline Phosphatase 63 39 - 117 U/L [facility] 12/04/2022 10:1 5 AM EST 12/04/2022 10:15 AM EST [facility] External Provider LAB BLO OD ORDERABLES Final Result [facility] [address], [place] [phone] * (ABNORMAL) CBC auto differential (12/04/2022 10:15 AM EST) White Blood Count 6.9 4.8 - 10.8 X10*3/uL [facility] Red Blood Count 4.93 4.60 - 5.80 X10*6/uL [facility] Hemoglobin 15.0 14.0 - 18.0 g/dl [facility] Hematocrit 44.5 42.0 - 52.0 % [facility] Mean Corpuscular Volume 90.3 80.0 - 98.0 fL [facility] Mean Corpuscular Hemoglobin 30.4 27.0 - 33.0 pg [facility] Mean Corpuscular HGB Conc 33.7 31.0 - 36.0 g/dl [facility] Red Cell Distribution Width 13.4 11.0 - 16.0 % [facility] Platelet Count 218 160 - 400 X10*3/uL [facility] Mean Platelet Volume 10.0 9.4 - 12.4 fL [facility] Neutrophils Percent Auto 34.1(L) 45 - 73 % [facility] Imm Gran Pct Auto 0.4 0.0 - 0.4 % [facility] Lymphocytes Percent Auto 52.2(H) 20 - 40 % [facility] Monocytes Percent Auto 9.0 2 - 11 % [facility] Eosinophils Percent Auto 3.9 0 - 4 % [facility] Basophils Percent Auto 0.4 0 - 2 % [facility] NRBC Pct Auto 0.0 0.0 - 0.2 /100WBC [facility] Neutrophils Absolute Auto 2.3 2.0 - 8.3 x10*3/uL [facility] Imm Gran Abs Auto 0.03 0.00 - 0.03 X10*3/uL [facility] Lymphocytes Absolute Auto 3.6 1.2 - 4.9 X10*3/uL [facility] Monocytes Absolute Auto 0.6 0.1 - 1.2 X10*3/uL [facility] Eosinophils Absolute Auto 0.3 0.0 - 0.4 X10*3/uL [facility] Basophils Absolute Auto 0.0 0.0 - 0.2 X10*3/uL [facility] NRBC Abs Auto 0.000 0.0 - 0.012 X10*3/uL [facility] 12/04/2022 10:1 5 AM EST 12/04/2022 10:15 AM EST [facility] External Provider LAB BLO OD ORDERABLES Final Result Performing Organization Address [facility] de Phone Number [facility] [address] [place] [phone] * POCT Creatinine GFR (12/04/2022 9:49 AM EST) [facility] POCT Creatinine 0.9 0.5 - 1.4 mg/dL [facility] GFR POC >60 [facility] Comment:Chronic Kidney Disea se: Estimated GFR < 60 mL/min/1.70z1Ptjlkr Kidney Disease: Estimated GFR < 15 mL/min/1.73m2 12/04/2022 9:49 AM EST 12/04/2022 4:06 PM EST Narrative [facility] - 12/04/2022 4:07 PM EST [id number].MONTRELLAAR [facility] Exter nal Provider LAB POINT OF CARE TEST DOCKED DEVICE ORDERABLES Final Result Performing Organization Address [facility] de Phone Number [facility] [address] [place] [phone] * (ABNORMAL) PROTHROMBIN TIME WHOLE BLD POC (12/03/2022 2:54 PM EST) Protime 69.3(H) 11.1 - 13.5 sec [facility] 12/03/2022 2:54 PM EST 12/03/2022 3:30 PM EST Result [facility] External Provider LAB BLO OD ORDERABLES Final Result Performing Organization Address [facility] de Phone Number [facility] [address] [place] [phone] * (ABNORMAL) ~PT, ~INR - ANTI COAG CLINIC (12/03/2022 2:54 PM EST) Prothrombin Time INR 5.8(HH) 0.9 - 1.1 [facility] Comment:METER #: [id number] ctor NotifiedINTERNATIONAL NORMALIZED RATIO (INR) REFERENCE RANGES Reference RangeFor patients not on anticoagulant therapy: 0.9 - 1.1INR ranges for oral anticoagulanttherapy:For prevention and treatment of venous thrombosis and pulmonary embolism: 2.0 - 3.0For acute myocardial infarction with aspirin therapy: 2.0 - 3.0For acute myocardial infarction without aspirin therapy: 3.0 - 4.0For patients with mechanical prosthetic heart valves: 2.5 - 3.5 12/03/2022 2:54 PM EST 12/03/2022 3:30 PM EST Result [facility] External Provider LAB BLO OD ORDERABLES Final Result Performing Organization Address [facility] Co de Phone Number [facility] [address] [place] [phone] * (ABNORMAL) PROTHROMBIN TIME WHOLE BLD POC (11/26/2022 2:46 PM EST) Protime 40.1(H) 11.1 - 13.5 sec [facility] 11/26/2022 2:46 PM EST 11/26/2022 2:47 PM EST Result [facility] External Provider LAB BLO OD ORDERABLES Final Result Performing Organization Address City/[facility]/ZIP Co de Phone Number [facility] [address] [place] [address] [phone] * (ABNORMAL) ~PT, ~INR - ANTI COAG CLINIC (11/26/2022 2:46 PM EST) Prothrombin Time INR 3.3(H) 0.9 - 1.1 [facility] Comment:METER #: [id number] TERNATIONAL NORMALIZED RATIO (INR) REFERENCE RANGES Reference RangeFor patients not on anticoagulant therapy: 0.9 - 1.1INR ranges for oral anticoagulanttherapy:For prevention and treatment of venous thrombosis and pulmonary embolism: 2.0 - 3.0For acute myocardial infarction with aspirin therapy: 2.0 - 3.0For acute myocardial infarction without aspirin therapy: 3.0 - 4.0For patients with mechanical prosthetic heart valves: 2.5 - 3.5 11/26/2022 2:46 PM EST 11/26/2022 2:47 PM EST [facility] External Provider LAB BLO OD ORDERABLES Final Result Performing Organization Address [facility] Co de Phone Number [facility] [address] [place] [address] [phone] * (ABNORMAL) PROTHROMBIN TIME WHOLE BLD POC (11/05/2022 3:33 PM EST) Protime 33.6(H) 11.1 - 13.5 sec [facility] 11/05/2022 3:33 PM EST 11/05/2022 3:35 PM EST [facility] External Provider LAB BLO OD ORDERABLES Final Result Performing Organization Address [facility]/ZIP Co de Phone Number [facility] [address] [place] [address] [phone] * (ABNORMAL) ~PT, ~INR - ANTI COAG CLINIC (11/05/2022 3:33 PM EST) Prothrombin Time INR 2.8(H) 0.9 - 1.1 [facility] Comment:METER #: [id number] TERNATIONAL NORMALIZED RATIO (INR) REFERENCE RANGES Reference RangeFor patients not on anticoagulant therapy: 0.9 - 1.1INR ranges for oral anticoagulanttherapy:For prevention and treatment of venous thrombosis and pulmonary embolism: 2.0 - 3.0For acute myocardial infarction with aspirin therapy: 2.0 - 3.0For acute myocardial infarction without aspirin therapy: 3.0 - 4.0For patients with mechanical prosthetic heart valves: 2.5 - 3.5 11/05/2022 3:33 PM EST 11/05/2022 3:35 PM EST [facility] External Provider LAB BLO OD ORDERABLES Final Result Performing Organization Address [facility] de Phone Number [facility] [address] [place] [phone] * (ABNORMAL) PROTHROMBIN TIME WHOLE BLD POC (10/29/2022 3:11 PM EST) Protime 45.2(H) 11.1 - 13.5 sec [facility] 10/29/2022 3:11 PM EST 10/30/2022 7:55 AM EST [facility] External Provider LAB BLO OD ORDERABLES Final Result Performing Organization Address [facility] de Phone Number [facility] [address] [place] [phone] * (ABNORMAL) ~PT, ~INR - ANTI COAG CLINIC (10/29/2022 3:11 PM EST) Prothrombin Time INR 3.8(H) 0.9 - 1.1 [facility] Comment:METER #: [id number] TERNATIONAL NORMALIZED RATIO (INR) REFERENCE RANGES Reference RangeFor patients not on anticoagulant therapy: 0.9 - 1.1INR ranges for oral anticoagulanttherapy:For prevention and treatment of venous thrombosis and pulmonary embolism: 2.0 - 3.0For acute myocardial infarction with aspirin therapy: 2.0 - 3.0For acute myocardial infarction without aspirin therapy: 3.0 - 4.0For patients with mechanical prosthetic heart valves: 2.5 - 3.5 10/29/2022 3:11 PM EST 10/30/2022 7:55 AM EST [facility] External Provider LAB BLO OD ORDERABLES Final Result [facility] [address] [place] [address] [phone] documented in this encounter Visit Diagnoses Diagnosis Pleural scarring- Primary Pleurisy without mention of effusion or current tuberculosis Abnormal chest CT Nonspecific (abnormal) findings on radiological and other examination of other intrathoracic organs documented in this encounter Care Teams Systems Management Consultant Relationship Specialty Start Date End Date Sancho Yoon MD [address] [place] [phone] PCP - General Internal Medicine 08/16/14 documented as of this encounter
--- OUTSIDE RECORDS SUMMARY | 2024-12-28 16:24 | XMS_ITS ---
Author Organization [facility] Address [address] [place] [address] Care Team Providers Care Director Of Conservation Name Role Phone Raman Mayberry MD, Sancho Primary Care Provide r Joshua Hernandez [phone] ALLERGIES No Known Allergies REASON FOR VISIT Patient presents today for HEP C MEDICATIONS Medication SIG (Take, Route, Frequency, Duration) Notes Start Date End Date Status Rosuvastatin Calcium 5 MG TAKE 1 TABLET BY MOUTH AT BEDTIME Oral for 90 [id number],Unavailable Active oxyCODONE HCl 5mg TID regularly for leg pain Active Albuterol Sulfate HFA when needed Active Lisinopril 10mg Acti ve Coumadin 7.5 MG Orally Acti ve VITAL SIGNS BMI 28.79 kg/m2 12/22/2023 Blood pressure systolic 00 mm Hg 12/22/19 24 Blood pressure diastolic 00 mm Hg 024 Height 70.75 in 12/22/2023 Temperature 97.7 degrees Fahrenheit 12/22/19 24 Weight 205 lbs 12/22/2023 Encounters Encounter Location Date Provider Diagnosis [facility] [address] [place] [address] 12/22/2023 Joshua Valdivia History of hepatitis C Z86.19 ; Liver fibrosis K74.00 and History of adenomatous polyp of colon Z86.010 ASSESSMENTS Encounter Date Diagnosis Assessment Notes Treatment Notes Treatment Clinical Notes 12/22/2023 History of hepatitis C (ICD-10 - Z86.19) 12/22/2023 Liver fibrosis (ICD-10 - K74.00) 12/22/2023 History of adenomatous polyp of colon (ICD-10 - Z86.010) Repeat colonoscopy in 2026 PLAN OF TREATMENT Treatment Notes Assessment Notes History of adenomatous polyp of colon Re peat colonoscopy in 2026 Pending Test Test Name Order Date LIVER PROFILE 12/22/2023 CBC w DIFF 12/22/2023 ALPHA-FETOPROTEIN,TUMOR MARKER 4 Liver Fibrosis Pnl 12/22/2023 US abdomen comp w elastography 4 Next Appt Details Follow Up: 1 Year, Reason: Provider Name:Joshua Cesar Valdivia , 04/27/2025 10:20:00 AM, [address] [place] [address], [address], [place], [address], Progress Notes * Examination Category Sub-Category Detail Notes General Examination GENERAL APPEARANCE: pleasant , well nourished, well developed, in no acute distress EYES: sclera non-icteric NECK/THYROID: no cervical lymphade nopathy, neck supple HEART: S1, S2 normal LUNGS: clear to auscultatio n bilaterally ABDOMEN: normal bowel sounds, no guarding or rigidity, no hepatosplenomegaly, no masses palpable, soft, nontender, nondistended. NEUROLOGIC: alert and oriented SKIN: nonjaundiced, no spi brady angiomata. EXTREMITIES: no edema ORAL CAVITY: mucosa moist
--- OUTSIDE RECORDS SUMMARY | 2024-12-28 16:24 | XMS_ITS | Encounter Summary ---
Author Organization [employer] Address [address] [facility] 7t [place] [address] Care Team Providers Care Vp Revenue Cycle Name Role Phone Sancho Yoon MD Primary Care Provide r Reason for Visit * Reason Comments Med Refill Encounter Details Date Type Department Care Team ([facility] st Contact Info) Description 10/21/2023 Refill [facility] MED[facility]INE [address] [place], [place] [phone] Sancho Yoon MD [address] [place] [address] Pure hypercholesterolemia Social History Tobacco Use Types [...] Description 01/26/2025 1:15 PM EDT Office Visit [facility] MEDICINE [address] [place] [address] Sancho Yoon MD [address] [place] [address] 03/15/2025 8:00 AM EDT Office Visit [facility] ADULT DENTAL [address] [place] [address] Yi Sanchez documented as of this encounter Visit Diagnoses Diagnosis Pure hypercholesterolemia documented in this encounter Additional Health Concerns Assessment Noted Time PHQ-9 Depression Total Score: 3 03/23/20 23 1:07 PM EDT documented as of this encounter Care Teams Vp Revenue Cycle Relationship Specialty Start Date End Date Sancho Yoon MD [address] [place] [address] PCP - General Internal Medicine 08/16/14 documented as of this encounter
--- OUTSIDE RECORDS SUMMARY | 2024-12-28 16:25 | XMS_ITS | Encounter Summary ---
Author Organization [employer] Address [address] [facility] 7t [place] [address] Care Team Providers Care Health And Safety Tech Name Role Phone Sancho Yoon MD Primary Care Provide r Reason for Visit * Reason Onset Date Comments Med Refill 03/07/2024 Referral 03/07/2024 Encounter Details Date Type Department Care Team (Late st Contact Info) Description 03/07/2024 Refill [facility] [address] [place], [place] [phone] Sancho Yoon MD 230 [place] [address] Other chronic pain Social History Tobacco Use Types Packs/Day Years Used Date Smoking Tobacco: Never Passive Smoke Exposure: Never Smokeless Tobacco: Never Alcohol Use Standard Drinks/Week Comments Not Currently 0 (1 standard drink = 0.6 oz pur e alcohol) Depression Answer Date Recorded Patient Health Questionnaire-9 Score 0 09/29/2024 Patient Health Questionnaire-9 Score 0 09/29/2024 Last PHQ-9: Questionnaire Data Not on file 1 11/29/2023 Housing Stability Answer Date Recorded What is [...] Answer Date Recorded Patient Health Questionnaire-2 Score 0 09/29/2024 Internet Access Answer Date Recorded Internet Access Q1 Yes 09/29/2024 Internet Access Q2 Not on file 09/29/2024 Sex and Gender Information Value Date Recorded Sex Assigned at Male 09/15/2022 10:16 AM EDT Legal Sex Male 10:16 AM EDT Gender Identity Male 09/15/2022 10:16 AM EDT Sexual Orientation Choose not to disclose 2021 3:29 PM EST documented as of this encounter Miscellaneous Notes * Telephone Encounter - Carisa Houston RN - 03/16/2024 11:52 AM EDT Pt presented themselves to the walk in center at [facility] on 03/15/24. Pt was seen for reoccurring nosebleeds. Pt was advised by Dr. Montgomery on interventions for a nose bleed and when to seek further care. Pt also advised to seek an ENT specialist if nosebleeds become a chronic issue. * Telephone Encounter - Bronwyn De La Garza - 03/15/2024 10:04 AM EDT PT came into Green Team requesting a Referral for a Nose specialist, PT states that he has been having frequent nose bleeds out of the blue. * Telephone Encounter - Felecia Le - 03/07/2024 8:45 AM EDT Tc from pt requesting a refill for oxyCODONE (Roxicodone) 5 MG immediate release tablet documented in this encounter Plan of Treatment Upcoming Encounters Date Type Department Care Team (Late st Contact Info) Description 01/26/2025 1:15 PM EDT Office Visit [facility] [address] [place] [address] Sancho Yoon MD 230 [place] [address] 03/15/2025 8:00 AM EDT Office Visit [facility] ADULT DENTAL [address] [place] [address] Yi Sanchez documented as of this encounter Visit Diagnoses Diagnosis Other chronic pain documented in this encounter Additional Health Concerns Assessment Noted Time PHQ-9 Depression Total Score: 3 03/23/20 23 1:07 PM EDT documented as of this encounter Care Teams Health And Safety Tech Relationship Specialty Start Date End Date Sancho Yoon MD [address] [place] [address] PCP - General Internal Medicine 08/16/14 documented as of this encounter
--- OUTSIDE RECORDS SUMMARY | 2024-12-28 16:25 | XMS_ITS | Encounter Summary ---
Author Organization [employer] Address [address] [facility] [address] 7[address] [place] [address] Care Team Providers Care Dust Box Worker Name Role Phone Sancho Yoon MD Primary Care Provide r Reason for Visit * Reason Comments Generalized Body Aches Headache Cough Encounter Details Date Type Department Care Team ([facility] st Contact Info) Description 12/15/2024 8:40 AM EST Office Visit [facility] [address] [place] [address] Miesha Schwartz DO 230 [place], [place] [phone] COVID-19; Influenza A Social History Tobacco Use Types Packs/Day Years [...] PM EST documented as of this encounter Last Filed Vital Signs Vital Sign Reading Time Taken Comments Blood Pressure 152/82 12/15/2024 12:11 PM EST Pulse 86 12/15/2024 8:46 AM EST Temperature 37.2 ??C (98.9 ??F) 12/15/2024 8:46 AM ES T Respiratory Rate 18 12/15/2024 8:46 AM EST Oxygen Saturation 95% 12/15/2024 8:46 AM EST Inhaled Oxygen Concentration - - Weight 99.9 kg (220 lb 3.2 oz) 12/15/2024 8:46 A M EST Height - - Body Mass Index 29.86 09/29/2024 9:47 AM EST documented in this encounter Progress Notes * Miesha Schwartz, DO - 12/15/2024 8:40 AM EST SUBJECTIVE: Clint Dickens is a 68 y.o. year old male who presents for sick visit . HPI He was seen in [place] earlier this mos with URI sx and COVID/flu negative. He was given symptomatic treatment and sent home. He comes in today c/o cough and body aches. He says that his previous sx had resolved and sx returned 3-4 days ago. He has been using his tessalon perles which help a little. He has AR[place]YO and body aches. He has nasal congestion and rhinorrhea. He reports tactile fever and chills. He has been having sx and using his albuterol ~ 3 times a day this week. No abd pain or N/V/D. No sick contacts. History provided by: Patient spanish interpreter/translator used: Yes Cough This is a new problem. The current episode started in the past 7 days. The problem has been gradually worsening. The cough is Non-productive. Associated symptoms include chills, a fever, headaches, nasal congestion, rhinorrhea, shortness of breath and wheezing. Pertinent negatives include no chest pain, ear congestion, ear pain, myalgias, rash or sore throat. He has tried a beta-agonist inhaler for the symptoms. The treatment provided mild relief. His past medical history is significant for asthma. Review of Systems Constitutional: Positive for chills and fever. HENT: Positive for rhinorrhea. Negative for ear pain and sore throat. Respiratory: Positive for cough, shortness of breath and wheezing. Cardiovascular: Negative for chest pain. Musculoskeletal: Negative for myalgias. Skin: Negative for rash. Neurological: Positive for headaches. Patient Active Problem List Diagnosis Benign prostatic hyperplasia with nocturia Chronic hoarseness Erectile dysfunction Essential hypertension [place] History of cholecystectomy Mild intermittent asthma Chronic right-sided low back pain with right-sided sciatica Peripheral venous insufficiency Presence of inferior vena cava filter Pure hypercholesterolemia Right inguinal hernia Tinnitus Tubular adenoma of colon History of positive hepatitis C Right upper quadrant abdominal pain Pleurodynia Trigger little finger of right hand Dental plaque Gingival recession, localized Chronic anticoagulation Onychomycosis of great toe Right arm numbness Preventative health care Dry cough Fracture, maxillary (CMS/HCC) Frequent falls Periodontal disease Dental calculus Hospital discharge follow-up Conjunctival pterygium, bilateral Elevated glucose Benign paroxysmal positional vertigo due to bilateral vestibular disorder Skin lesion of left leg No Known Allergies OBJECTIVE Vitals: 12/15/24 0846 BP: (!) 170/101 BP Location: Left arm Patient Position: Sitting BP Cuff Size: Adult Pulse: 86 Resp: 18 Temp: 98.9 ??F (37.2 ??C) TempSrc: Oral SpO2: 95% Weight: 220 lb 3.2 oz (99.9 kg) Physical Exam Constitutional: General: He is not in acute distress. Appearance: Normal appearance. HENT: Right Ear: Tympanic membrane, ear canal and external ear normal. Left Ear: Tympanic membrane, ear canal and external ear normal. Nose: Congestion and rhinorrhea present. Mouth/Throat: Pharynx: Posterior oropharyngeal erythema present. No oropharyngeal exudate. Cardiovascular: Rate and Rhythm: Normal rate and regular rhythm. Heart sounds: Normal heart sounds. No murmur heard. Pulmonary: Effort: Pulmonary effort is normal. No accessory muscle usage or respiratory distress. Breath sounds: Normal breath sounds. Decreased air movement present. No wheezing or rhonchi. Comments: Speaking in full sentences without difficulty Musculoskeletal: Cervical back: Normal range of motion and neck supple. No tenderness. Lymphadenopathy: Cervical: No cervical adenopathy. Neurological: General: No focal deficit present. Mental Status: He is alert and oriented to person, place, and time. Cranial Nerves: No cranial nerve deficit. Motor: No weakness. Gait: Gait normal. Psychiatric: Mood and Affect: Mood normal. Office Visit on 12/15/2024 Component Date Value Ref Range Status Rapid COVID Ag 12/15/2024 Positive Final Influenza A 12/15/2024 Positive (A) Negative, Indeterminate Final Influenza B 12/15/2024 Negative Negative, Indeterminate Final ASSESSMENT/PLAN Diagnoses and all orders for this visit: COVID-19 Influenza A With mild asthma exacerbation -provided reassurance -encouraged supportive care measures -advised stay well hydrated -reviewed isolation guidelines with patient -treat with paxlovid BID x 5 days, he is advised to hold statin, flomax and viagra for 8 days and notify coumadin clinic re: medication -he is past the window for treatment with tamiflu -treat with prednisone daily x 5 days -cont arnuity daily -cont albuterol as needed -start claritin and flonase daily -cont tessalon perles prn -trial mucinex to help with congestion -encouraged tylenol as needed -advised rtc or go to ED if no improvement or sx worsen, he agrees with plans - POCT Rapid COVID Ag - Influenza A (ID NOW Rapid Molecular) - Influenza B (ID NOW Rapid Molecular) F/U with PCP as scheduled or sooner prn Current Outpatient Medications: Arnuity Ellipta 100 MCG/ACT inhaler, INHALE 1 PUFF BY MOUTH EVERY DAY AT THE SAME TIME. RINSE MOUTHAFTER USING.., Disp: 30 each, Rfl: 5 gabapentin (Neurontin) 300 MG capsule, TAKE 2 CAPSULES BY MOUTH THREE TIMES A DAY, Disp: 180 capsule, Rfl: 3 hydrocortisone (Anusol-HC) 2.5 % rectal cream, Apply to affected area BID PRN, Disp: 28 g, Rfl: 3 lisinopril 10 MG tablet, TAKE 1 TABLET BY MOUTH EVERY DAY IN THE MORNING, Disp: 90 tablet, Rfl: 1 meclizine (Antivert) 25 MG tablet, Take 1 tablet (25 mg) by mouth if needed in the morning, at noon, and at bedtime for dizziness., Disp: 30 tablet, Rfl: 0 Menthol (Cepacol Sore Throat) 5.4 MG lozenge, Dissolve 1 tablet in the mouth every 2 (two) hours ifneeded (sore throat)., Disp: 20 lozenge, Rfl: 0 naloxone (Narcan) 4 mg/0.1 mL nasal spray, Administer 0.1 mL into affected nostril(s)., Disp: , Rfl: rosuvastatin (Crestor) 5 MG tablet, TAKE 1 TABLET BY MOUTH AT BEDTIME, Disp: 90 tablet, Rfl: 0 sildenafil (Viagra) 100 MG tablet, TAKE 1 TABLET 1 HOUR BEFORE SEXUAL RELATIONS ONCE DAILY NEEDED., Disp: 10 tablet, Rfl: 3 tamsulosin (Flomax) 0.4 MG 24 hr capsule, TAKE 1 CAPSULE BY MOUTH AT BEDTIME, Disp: , Rfl: Ventolin HFA 108 (90 Base) MCG/ACT inhaler, INHALE 2 PUFFS BY MOUTH EVERY 4 HOURS NEEDED FOR WHEEZING OR SHORTNESS OF BREATH, Disp: 18 g, Rfl: 1 warfarin (Coumadin) 5 MG tablet, TAKE 1 AND 1/2 TABLETS TO 2 TABLETS BY MOUTH EVERY DAY DIRECTED, Disp: 60 tablet, Rfl: 3 documented in this encounter Plan of Treatment Upcoming Encounters Date Type Department Care Team (Late st Contact Info) Description 01/26/2025 1:15 PM EDT Office Visit [facility] MEDICINE [address] [place], [place] [phone] Sancho Yoon MD [address] [place], [place] [phone] 03/15/2025 8:00 AM EDT Office Visit [facility] ADULT DENTAL [address] [facility] [place] [address] Yi Sanchez documented as of this encounter Procedures Procedure Name Priority Date/Time Associated Diagnosis Comments POCT INFLUENZA B (ID NOW RAPID MOLECULAR) Routine 12/15/2024 9:00 AM EST COVID-19 Influenza A POCT INFLUENZA A (ID NOW RAPID MOLECULAR) Routine 12/15/2024 9:00 AM EST COVID-19 Influenza A POCT RAPID COVID ANTIGEN Routine 12/15/2024 9:00 AM EST COVID-19 Influenza A documented in this encounter Results * Influenza B (ID NOW Rapid Molecular) (12/15/2024 9:00 AM EST) [facility] Influenza B Negative Negative, Indeterminate [facility] Swab 12/15/2024 9:00 AM EST Miesha Schwartz DO POINT OF CARE TEST ENTER/MAMADOU T ORDERABLES Final Result Performing Organization Address [facility]/ZIP Co de Phone Number [facility] [address] [place] [phone] * (ABNORMAL) Influenza A (ID NOW Rapid Molecular) (12/15/2024 9:00 AM EST) [facility] Influenza A Positive( A) Negative, Indeterminate [facility] Swab 12/15/2024 9:00 AM EST Miesha Schwartz DO POINT OF CARE TEST ENTER/MAMADOU T ORDERABLES Final Result Performing Organization Address [facility] Co de Phone Number [facility] [address] [place] [phone] * (ABNORMAL) POCT Rapid COVID Ag (12/15/2024 9:00 AM EST) Rapid COVID Ag Positive [facility] Swab 12/15/2024 9:00 AM EST Miesha Schwartz DO POINT OF CARE TEST ENTER/MAMADOU T ORDERABLES Final Result [facility] [address] [place] [phone] documented in this encounter Visit Diagnoses Diagnosis COVID-19 Influenza A Influenza with other respiratory manifestations documented in this encounter Additional Health Concerns Assessment Noted Time PHQ-9 Depression Total Score: 0 09/29/20 24 9:48 AM EST documented as of this encounter Care Teams Dust Box Worker Relationship Specialty Start Date End Date Sancho Yoon MD [address] [place] [address] PCP - General Internal Medicine 08/16/14 documented as of this encounter
--- OUTSIDE RECORDS SUMMARY | 2024-12-28 16:25 | XMS_ITS | Encounter Summary ---
Author Organization [employer] Address [address] [facility] [address] 7t [place] [address] Care Team Providers Care Application Support Analyst Name Role Phone Sancho Yoon MD Primary Care Provide r Encounter Details Date Type Department Care Team ([facility] st Contact Info) Description 03/03/2024 Telephone [facility] MEDICINE [address] [place] [address] Sancho Yoon MD [address] [place] [address] Social History Tobacco Use Types Packs/Day Years Used Date Smoking Tobacco: Never Passive Smoke Exposure: Never Smokeless Tobacco: Never Alcohol Use Standard Drinks/Week Comments Not Currently 0 (1 standard drink = 0.6 oz pur e alcohol) Depression Answer Date Recorded Patient Health Questionnaire-9 Score 3 03/23/2023 Housing Stability Answer Date Recorded What is your housing situation today? I have nayjoel hernandez 08/31/[address] you [...] encounter Miscellaneous Notes * Telephone Encounter - Buffy Christian LPN - 03/03/2024 9:42 AM EDT Critical Result line call received from Kimberley at [facility] anticoag INR 5.2 rechecked with lab and 4.8 Warfarin on hold today Warfarin 5mg tomorrow and then 7.5mg Thursday and 5 mg on Thursday. Recheck Thursday Please update PCP as indicated. documented in this encounter Plan of Treatment Upcoming Encounters Date Type Department Care Team (Late st Contact Info) Description 01/26/2025 1:15 PM EDT Office Visit [facility] MEDICINE [address] [place] [address] Sancho Yoon MD [address] [place] [address] 03/15/2025 8:00 AM EDT Office Visit [facility] ADULT DENTAL [address] [place] [address] Yi Sanchez documented as of this encounter Visit Diagnoses Not on filedocumented in this encounter Additional Health Concerns Assessment Noted Time PHQ-9 Depression Total Score: 3 03/23/20 23 1:07 PM EDT documented as of this encounter Care Teams Application Support Analyst Relationship Specialty Start Date End Date Sancho Yoon MD [address] [place] [phone] PCP - General Internal Medicine 08/16/14 documented as of this encounter
--- OUTSIDE RECORDS SUMMARY | 2024-12-28 16:25 | XMS_ITS | Encounter Summary ---
Author Organization [employer] Address [address] [facility] 7t [place] [address] Care Team Providers Care Wildlife Policy Professional Name Role Phone Sancho Yoon MD Primary Care Provide r Reason for Visit * Reason Onset Date Comments Med Refill 04/19/2024 Encounter Details Date Type Department Care Team ([facility] st Contact Info) Description 04/19/2024 Telephone [facility] MEDICINE [address] [place], [place] [phone] Sancho Yoon MD [address] [place], [place] [phone] Med Refill Social History Tobacco Use Types Packs/Day Years [...] encounter Miscellaneous Notes * Telephone Encounter - Swathi Carey - 04/19/2024 1:10 PM EDT TC from pt requesting medication refill. Medications needing refill : oxyCODONE (Roxicodone) 5 MG immediate release tablet To be sent to: [facility] documented in this encounter Plan of Treatment Upcoming Encounters Date Type Department Care Team (Late st Contact Info) Description 01/26/2025 1:15 PM EDT Office Visit [facility] MEDICINE [address] [place] [address] Sancho Yoon MD [address] [place] [address] 03/15/2025 8:00 AM EDT Office Visit [facility] ADULT DENTAL [address] [place] [address] Yi Sanchez documented as of this encounter Visit Diagnoses Not on filedocumented in this encounter Additional Health Concerns Assessment Noted Time PHQ-9 Depression Total Score: 3 03/23/20 23 1:07 PM EDT documented as of this encounter Care Teams Wildlife Policy Professional Relationship Specialty Start Date End Date Sancho Yono MD [address] [place] [phone] PCP - General Internal Medicine 08/16/14 documented as of this encounter
--- OUTSIDE RECORDS SUMMARY | 2024-12-28 16:25 | XMS_ITS | Encounter Summary ---
Author Organization [employer] Address [address] [facility] 7t [place] [address] Care Team Providers Care Information Clerk Name Role Phone Sancho Yoon MD Primary Care Provide r Reason for Visit * Reason Comments Med Refill Encounter Details Date Type Department Care Team ([facility] Contact Info) Description 08/19/2023 Refill [facility] MEDICINE [address] [place], [place] [phone] Sancho Yoon MD [address] [place] [address] Social History Tobacco Use Types Packs/Day Years Used Date Smoking Tobacco: Never Passive Smoke Exposure: Never Smokeless Tobacco: Never Alcohol Use Standard Drinks/Week Comments Not Currently 0 (1 standard drink = 0.6 oz pur e alcohol) Depression Answer Date Recorded Patient Health Questionnaire-9 Score 3 03/23/2023 Housing Stability Answer Date Recorded What is your housing situation today? I have nay hernandez 08/23/[address] you li ve. Do you have problems with any of the following? None of the above 08/23/2023 Food Insecurity Answer Date Recorded Within the past 12 months, y ou worried that your food would run out before you got money to buy more: Never True 08/23/2023 Within the past 12 months,th e food you bought just didn't last and you didn't have enough money to get more: Never True 06/2023 Transportation Answer Date Recorded In the past 12 months, has l ack of transportation kept you from medical appts, meetings, work or from getting things needed for daily living? No 08/23/2023 Utilities Answer Date Recorded In the past 12 months, has t he electric, gas, oil or water company threatened to shut off services in your home? No 08/23/2023 Depression Answer Date Recorded Patient Health Questionnaire-2 [...] Description 01/26/2025 1:15 PM EDT Office Visit [facility] MEDICINE [address] [place] [address] Sancho Yoon MD [address] [place] [address] 03/15/2025 8:00 AM EDT Office Visit [facility] ADULT DENTAL [address] [place] [address] Yi Sanchez documented as of this encounter Visit Diagnoses Not on filedocumented in this encounter Additional Health Concerns Assessment Noted Time PHQ-9 Depression Total Score: 3 03/23/20 23 1:07 PM EDT documented as of this encounter Care Teams Information Clerk Relationship Specialty Start Date End Date Sancho Yoon MD [address] [place] [address] PCP - General Internal Medicine 08/16/14 documented as of this encounter
--- OUTSIDE RECORDS SUMMARY | 2024-12-28 16:25 | XMS_ITS | Encounter Summary ---
Author Organization [employer] Address [address] [facility] 7t [place] [address] Care Team Providers Care Children'S Program Coordinator Name Role Phone Sancho Yoon MD Primary Care Provide r Reason for Visit * Reason Onset Date Comments Appointment Request 04/05/2024 Encounter Details Date Type Department Care Team ([facility] Contact Info) Description 04/05/2024 Telephone [facility] MEDICINE [address] [place] [address] Sancho Yoon MD [address] [place], [place] [phone] Appointment Request Social History Tobacco Use Types Packs/Day Years [...] encounter Miscellaneous Notes * Telephone Encounter - Tremayne Garcia - 04/05/2024 3:15 PM EDT Tc from pt requesting call back wants to know if there is any upcoming FOOTWEAR PRODUCTION MACHINE OPERATOR visits to be scheduled. Please contact pt at [phone]. documented in this encounter Plan of Treatment Upcoming Encounters Date Type Department Care Team (Late st Contact Info) Description 01/26/2025 1:15 PM EDT Office Visit [facility] MEDICINE [address] [place] [address] Sancho Yoon MD [address] [place] [address] 03/15/2025 8:00 AM EDT Office Visit [facility] ADULT DENTAL [address] [place] [address] Yi Sanchez documented as of this encounter Visit Diagnoses Not on filedocumented in this encounter Additional Health Concerns Assessment Noted Time PHQ-9 Depression Total Score: 3 03/23/20 23 1:07 PM EDT documented as of this encounter Care Teams Children'S Program Coordinator Relationship Specialty Start Date End Date Sancho Yoon MD [address] [place] [address] PCP - General Internal Medicine 08/16/14 documented as of this encounter
--- OUTSIDE RECORDS SUMMARY | 2024-12-28 16:25 | XMS_ITS | Encounter Summary ---
Author Organization [employer] Address 75 [facility] 7t [place] [address] Care Team Providers Care Tellers Supervisor Name Role Phone Sancho Yoon MD Primary Care Provide r Reason for Visit * Reason Onset Date Comments Med Refill 12/14/2024 Encounter Details Date Type Department Care Team ([facility] st Contact Info) Description 12/14/2024 Telephone [facility] CHC MED & PEDS [address] [place], [place] [phone] Sancho Yoon MD [address] [place] [address] Med Refill Social History Tobacco Use Types [...] encounter Miscellaneous Notes * Telephone Encounter - Kristin Singh LPN - 12/14/2024 9:55 AM EST Received request on oxyCODONE (Roxicodone) 5 MG immediate release tablet documented in this encounter Plan of Treatment Upcoming Encounters Date Type Department Care Team (Late st Contact Info) Description 01/26/2025 1:15 PM EDT Office Visit [facility] MEDICINE [address] [place] [address] Sancho Yoon MD [address] [place] [address] 03/15/2025 8:00 AM EDT Office Visit [facility] ADULT DENTAL [address] [place] [address] Yi Sanchez documented as of this encounter Visit Diagnoses Not on filedocumented in this encounter Additional Health Concerns Assessment Noted Time PHQ-9 Depression Total Score: 0 09/29/20 24 9:48 AM EST documented as of this encounter Care Teams Tellers Supervisor Relationship Specialty Start Date End Date Sancho Yoon MD [address] [place] [address] PCP - General Internal Medicine 08/16/14 documented as of this encounter
--- OUTSIDE RECORDS SUMMARY | 2024-12-28 16:25 | XMS_ITS | Encounter Summary ---
Author Organization [employer] Address 75 [facility] 7t [place] [address] Care Team Providers Care Media Aid Name Role Phone Sancho Yoon MD Primary Care Provide r Reason for Visit * Reason Onset Date Comments Med Refill 04/29/2024 Encounter Details Date Type Department Care Team ([facility] st Contact Info) Description 04/29/2024 Telephone [facility] MEDICINE [address] [place], [place] [phone] Sancho Yoon MD 230 [place], [place] [phone] Med Refill Social History Tobacco Use Types [...] encounter Miscellaneous Notes * Telephone Encounter - Felecia Le - 04/29/2024 10:53 AM EDT Tc from pt requesting a refill for oxyCODONE (Roxicodone) 5 MG immediate release tablet documented in this encounter Plan of Treatment Upcoming Encounters Date Type Department Care Team (Late st Contact Info) Description 01/26/2025 1:15 PM EDT Office Visit [facility] MEDICINE [address] [place] [address] Sancho Yoon MD [address] [place] [address] 03/15/2025 8:00 AM EDT Office Visit [facility] ADULT DENTAL [address] [place] [address] Yi Sanchez documented as of this encounter Visit Diagnoses Not on filedocumented in this encounter Additional Health Concerns Assessment Noted Time PHQ-9 Depression Total Score: 3 03/23/20 23 1:07 PM EDT documented as of this encounter Care Teams Media Aid Relationship Specialty Start Date End Date Sancho Yoon MD [address] [place] [address] PCP - General Internal Medicine 08/16/14 documented as of this encounter
--- OUTSIDE RECORDS SUMMARY | 2024-12-28 16:25 | XMS_ITS | Encounter Summary ---
Author Organization [employer] Address [address] [facility] [address] 7[address] [place] [address] Care Team Providers Care Plant Operator/Shift Supervisor Name Role Phone Sancho Yoon MD Primary Care Provide r Encounter Details Date Type Department Care Team ([facility] st Contact Info) Description 09/14/2023 Telephone [facility] MEDICINE [address] [place] [address] Sancho Yoon MD 230 [place] [address] Social History Tobacco Use Types Packs/Day Years [...] Telephone Encounter - Buffy Christian LPN - 09/14/2023 2:29 PM EDT Critical Result Line call received now. Patient INR 1.2 Had been on hold x 5 days pending Ortho procedure .Was to resume normal dosing on 09/09/23 Today INR remains low. Today Warfarin 10mg. Thursday and Thursday warfarin 7.5 mg with a recheck on 09/17/2023. Please update PCP and follow with patient if indicated. documented in this encounter Plan of Treatment Upcoming Encounters Date Type Department Care Team (Late st Contact Info) Description 01/26/2025 1:15 PM EDT Office Visit [facility] MEDICINE [address] [place] [address] Sancho Yoon MD [address] [place] [address] 03/15/2025 8:00 AM EDT Office Visit [facility] ADULT DENTAL [address] [place] [address] Yi Sanchez documented as of this encounter Visit Diagnoses Not on filedocumented in this encounter Additional Health Concerns Assessment Noted Time PHQ-9 Depression Total Score: 3 03/23/20 23 1:07 PM EDT documented as of this encounter Care Teams Plant Operator/Shift Supervisor Relationship Specialty Start Date End Date Sancho Yoon MD 230 [place] [address] PCP - General Internal Medicine 08/16/14 documented as of this encounter
--- OUTSIDE RECORDS SUMMARY | 2024-12-28 16:25 | XMS_ITS | Encounter Summary ---
Author Organization [employer] Address 75 [facility] 7t [place] [address] Care Team Providers Care Restaurant Hourly Manager Name Role Phone Sancho Yoon MD Primary Care Provide r Reason for Visit * Reason Onset Date Comments New Med Request 09/01/2023 Encounter Details Date Type Department Care Team ([facility] st Contact Info) Description 09/01/2023 Telephone [facility] MEDICINE 230 [place] [address] Sancho Yoon MD [address] [place], [place] [phone] New Med Request Social History Tobacco Use Types Packs/Day [...] encounter Miscellaneous Notes * Telephone Encounter - Daisy Britton RN - 09/08/2023 8:54 AM EDT Received call from [facility] Coumadin clinic regarding INR, spoke to Yi. Pt having a hip injection done today, and is on hold for coumadin until 24 hours post injection. Pt INR today is 1.2 and Yi is requesting Lovenox script as appropriate. Pt will be resuming his coumadin tomorrow evening 09/09 and his next check will be 09/14. Please advised if further concerns or recommendations. Will task to team nurses to follow up with PCP and pt as needed. Yi understands and agrees with plan. * Telephone Encounter - Swathi Carey - 09/01/2023 1:13 PM EDT Tc from pt requesting new script for lovenox shot, pt stating need to start lovenox on this Thursday09/04/2023 due to hip injection procedure on 09/08/2023. Any questions contact pt. Armenian speaker documented in this encounter Plan of Treatment Upcoming Encounters Date Type Department Care Team (Late st Contact Info) Description 01/26/2025 1:15 PM EDT Office Visit [facility] MEDICINE [address] [place], [place] [phone] Sancho Yoon MD [address] [place] [address] 03/15/2025 8:00 AM EDT Office Visit [facility] ADULT DENTAL [address] [facility] [place] [address] Yi Sanchez documented as of this encounter Visit Diagnoses Not on filedocumented in this encounter Additional Health Concerns Assessment Noted Time PHQ-9 Depression Total Score: 3 03/23/20 23 1:07 PM EDT documented as of this encounter Care Teams Restaurant Hourly Manager Relationship Specialty Start Date End Date Sancho Yoon MD [address] [facility] [place] [address] PCP - General Internal Medicine 08/16/14 documented as of this encounter
--- OUTSIDE RECORDS SUMMARY | 2024-12-28 16:25 | XMS_ITS | Encounter Summary ---
Author Organization [employer] Address [address] [facility] [address] 7[address] [place] [address] Care Team Providers Care Electronic Controls Repairer Supervisor Name Role Phone Sancho Yoon MD Primary Care Provide r Reason for Visit * Reason Comments Med Refill Encounter Details Date Type Department Care Team ([facility] st Contact Info) Description 11/18/2023 Refill [facility] 230 [place], [place] [phone] Chad Foley MD [address] [place], [place] [phone] Social History Tobacco Use Types Packs/Day Years [...] Description 01/26/2025 1:15 PM EDT Office Visit [facility] MEDICINE [address] [place] [address] Sancho Yoon MD [address] [place] [address] 03/15/2025 8:00 AM EDT Office Visit [facility] ADULT DENTAL 230 [place] [address] Yi Sanchez documented as of this encounter Visit Diagnoses Not on filedocumented in this encounter Additional Health Concerns Assessment Noted Time PHQ-9 Depression Total Score: 3 03/23/20 23 1:07 PM EDT documented as of this encounter Care Teams Electronic Controls Repairer Supervisor Relationship Specialty Start Date End Date Sancho Yoon MD [address] [place] [address] PCP - General Internal Medicine 08/16/14 documented as of this encounter
--- OUTSIDE RECORDS SUMMARY | 2024-12-28 16:25 | XMS_ITS | Encounter Summary ---
Author Organization [facility] Address [address] [facility] 7t [place] [address] Care Team Providers Care Natural Resources Manager Name Role Phone Sancho Yoon MD Primary Care Provide r Encounter Details Date Type Department Care Team (Late st Contact Info) Description 07/28/2023 Abstract [facility] ADULT DENTAL [address] [place] [address] Mildred Duran [address] [place] [address] Social History Tobacco Use Types Packs/Day Years Used Date Smoking Tobacco: Never Passive Smoke Exposure: Never Smokeless Tobacco: Never Alcohol Use Standard Drinks/Week Comments Not Currently 0 (1 standard drink = 0.6 oz pur e alcohol) Depression Answer Date Recorded Patient Health Questionnaire-9 Score 3 03/23/2023 Depression Answer Date Recorded Patient Health Questionnaire-2 [...] Description 01/26/2025 1:15 PM EDT Office Visit [facility] MEDICINE [address] [place] [address] Sancho Yoon MD 230 [place] [address] 03/15/2025 8:00 AM EDT Office Visit [facility] ADULT DENTAL [address] [place] [address] Yi Sanchez documented as of this encounter Visit Diagnoses Not on filedocumented in this encounter Additional Health Concerns Assessment Noted Time PHQ-9 Depression Total Score: 3 03/23/20 23 1:07 PM EDT documented as of this encounter Care Teams Natural Resources Manager Relationship Specialty Start Date End Date Sancho Yoon MD 230 [place] [address] PCP - General Internal Medicine 08/16/14 documented as of this encounter
--- OUTSIDE RECORDS SUMMARY | 2024-12-28 16:25 | XMS_ITS | Encounter Summary ---
Author Organization [employer] Address [address] [facility] [address] 7t [place] [address] Care Team Providers Care Associate Field Service Engineer Name Role Phone Sancho Yoon MD Primary Care Provide r Reason for Visit * Reason Onset Date Comments Med Refill 12/14/2024 Encounter Details Date Type Department Care Team ([facility] st Contact Info) Description 12/14/2024 Refill [facility] CHC MED & PEDS [address] [place] [address] 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, RN [address] [place] [address] Other chronic pain Social History Tobacco Use [...] encounter Miscellaneous Notes * Telephone Encounter - 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 RN - 2024 4:53 PM EST .What MACHINE LEAD BURNER Tier would you like this patient to be? Tier 1 = HIGH RISK, Monthly MACHINE LEAD BURNER visits Tier 2 = MODerate RISK, Q3 Month visits Tier 3 = LOW RISK = Q4-6 month visits documented in this encounter Plan of Treatment Upcoming Encounters Date Type Department Care Team (Late st Contact Info) Description 01/26/2025 1:15 PM EDT Office Visit [facility] MEDICINE [address] [place] [address] Sancho Yoon MD [address] [place] [address] 03/15/2025 8:00 AM EDT Office Visit [facility] ADULT DENTAL [address] [place] [address] Yi Sanchez documented as of this encounter Visit Diagnoses Diagnosis Other chronic pain documented in this encounter Additional Health Concerns Assessment Noted Time PHQ-9 Depression Total Score: 0 09/29/20 24 9:48 AM EST documented as of this encounter Care Teams Associate Field Service Engineer Relationship Specialty Start Date End Date Sancho Yoon MD 230 [place] [address] PCP - General Internal Medicine 08/16/14 documented as of this encounter
--- OUTSIDE RECORDS SUMMARY | 2024-12-28 16:25 | XMS_ITS ---
Author Organization [facility] Address [address] [place] [address] Care Team Providers Care Cafe Assistant Name Role Phone Raman Mayberry MD, Sancho Primary Care Provide Joshua Harvey [phone] REASON FOR VISIT RESCHEDULED APPT TOMORROW Encounters Encounter Location Date Provider Diagnosis [facility] [address] [place] [address] 12/21/2024 Joshua Valdivia PLAN OF TREATMENT Next Appt Details Provider Name:Joshua Valdivia , 04/27/2025 10:20:00 AM, [address], [address], [place], [address],
--- OUTSIDE RECORDS SUMMARY | 2024-12-28 16:25 | XMS_ITS | Encounter Summary ---
Author Organization [facility] Address [address] [facility] 7t [place] [address] Care Team Providers Care Assistant Chief Nursing Officer Name Role Phone Sancho Yoon MD Primary Care Provide r Encounter Details Date Type Department Care Team (Latest Contact Info) Description 04/16/2021 Abstract [facility] CONVERSIONS Dental, Provider, DDS Social History Tobacco Use Types Packs/Day Years Used Date Smoking Tobacco: Never Assessed Sex and Gender Information Value Date Recorded Sex Assigned at Male 09/15/2022 10:16 AM EDT Legal Sex Male 10:16 AM EDT Gender Identity Male 09/15/2022 10:16 AM EDT Sexual Orientation Choose not to disclose 2021 3:29 PM EST documented as of this encounter Plan of Treatment Upcoming Encounters Date Type Department Care Team ( st Contact Info) Description 01/26/2025 1:15 PM EDT Office Visit [facility] MEDICINE 230 [place] [address] Sancho Yoon MD 230 [place] [address] 03/15/2025 8:00 AM EDT Office Visit [facility] ADULT DENTAL [address] [place] [address] Yi Sanchez documented as of this encounter Visit Diagnoses Not on filedocumented in this encounter Care Teams Assistant Chief Nursing Officer Relationship Specialty Start Date End Date Sancho Yoon MD [address] [place], [place] [phone] PCP - General Internal Medicine 08/16/14 documented as of this encounter
--- OUTSIDE RECORDS SUMMARY | 2024-12-28 16:25 | XMS_ITS | Encounter Summary ---
Author Organization [employer] Address 75 [facility] 7t [place] [address] Care Team Providers Care Tray Casting Machine Operator Name Role Phone Sancho Yoon MD Primary Care Provide r Reason for Visit * Reason Onset Date Comments Med Refill 07/25/2024 Encounter Details Date Type Department Care Team ([facility] st Contact Info) Description 07/25/2024 Telephone [facility] MEDICINE [address] [place], [place] [phone] Sancho Yoon MD [address] [place], [place] [phone] Med Refill Social History Tobacco Use Types [...] encounter Miscellaneous Notes * Telephone Encounter - Antonette Chapman - 07/25/2024 10:15 AM EDT TC from pt requesting medication refill. Medications needing refill : oxyCODONE (Roxicodone) 5 MG immediate release tablet To be sent to: [facility] [place], [place] - [address] [place] [address] documented in this encounter Plan of Treatment Upcoming Encounters Date Type Department Care Team (Late st Contact Info) Description 01/26/2025 1:15 PM EDT Office Visit [facility] MEDICINE [address] [place] [address] Sancho Yoon MD [address] [place] [address] 03/15/2025 8:00 AM EDT Office Visit [facility] ADULT DENTAL [address] [place] [address] Yi Sanchez documented as of this encounter Visit Diagnoses Not on filedocumented in this encounter Additional Health Concerns Assessment Noted Time PHQ-9 Depression Total Score: 3 03/23/20 23 1:07 PM EDT documented as of this encounter Care Teams Tray Casting Machine Operator Relationship Specialty Start Date End Date Sancho Yoon MD [address] [place] [address] PCP - General Internal Medicine 08/16/14 documented as of this encounter
--- OUTSIDE RECORDS SUMMARY | 2024-12-28 16:25 | XMS_ITS | Encounter Summary ---
Author Organization [employer] Address [address] [facility] [address] 7t [place] [address] Care Team Providers Care Muck Boss Name Role Phone Sancho Yoon MD Primary Care Provide r Encounter Details Date Type Department Care Team ([facility] Contact Info) Description 12/21/2024 Telephone [facility] MED & PEDS [address] [place], [place] [phone] 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, ELISEO [address] [place] [address] Social History Tobacco Use Types Packs/Day Years [...] Telephone Encounter - 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 RN - 12/21/2024 9:49 AM EST TC to pt x2 via BLS ID# [id number]. Pt cancelled todays [employer] [place]. No answer. Lvm for pt to c/b and r/s. documented in this encounter Plan of Treatment Upcoming Encounters Date Type Department Care Team (Late st Contact Info) Description 01/26/2025 1:15 PM EDT Office Visit [facility] MEDICINE 230 [place] [address] Sancho Yoon MD [address] [place] [address] 03/15/2025 8:00 AM EDT Office Visit [facility] ADULT DENTAL [address] [place] [address] Yi Snachez documented as of this encounter Visit Diagnoses Not on filedocumented in this encounter Additional Health Concerns Assessment Noted Time PHQ-9 Depression Total Score: 0 09/29/20 24 9:48 AM EST documented as of this encounter Care Teams Muck Boss Relationship Specialty Start Date End Date Sancho Yoon MD [address] [place] [address] PCP - General Internal Medicine 08/16/14 documented as of this encounter
--- OUTSIDE RECORDS SUMMARY | 2024-12-28 16:25 | XMS_ITS | Encounter Summary ---
Author Organization [employer] Address 75 [facility] 7t [place] [address] Care Team Providers Care Sales Assistant Entertainment And Media Name Role Phone Sancho Yoon MD Primary Care Provide r Reason for Visit * Reason Comments Med Refill Encounter Details Date Type Department Care Team ([facility] st Contact Info) Description 05/02/2024 Refill [facility] CHC MED & PEDS [address] [place], [place] [phone] Sancho Yoon MD [address] [place], [place] [phone] Other chronic pain Social History Tobacco Use [...] 1:15 PM EDT Office Visit [facility] MEDICINE [address] [place] [address] Sancho Yoon MD [address] [place] [address] 03/15/2025 8:00 AM EDT Office Visit [facility] ADULT DENTAL [address] [place] [address] Yi Sanchez documented as of this encounter Visit Diagnoses Diagnosis Other chronic pain documented in this encounter Additional Health Concerns Assessment Noted Time PHQ-9 Depression Total Score: 3 03/23/20 23 1:07 PM EDT documented as of this encounter Care Teams Sales Assistant Entertainment And Media Relationship Specialty Start Date End Date Sancho Yoon MD [address] [place] [address] PCP - General Internal Medicine 08/16/14 documented as of this encounter
--- OUTSIDE RECORDS SUMMARY | 2024-12-28 16:25 | XMS_ITS | Encounter Summary ---
Author Organization [employer] Address [address] [facility] [address] 7t [place] [address] Care Team Providers Care Graduate Internship Name Role Phone Sancho Yoon MD Primary Care Provide r Encounter Details Date Type Department Care Team ([facility] st Contact Info) Description 09/17/2023 Telephone [facility] MEDICINE [address] [place] [address] Sancho Yoon MD [address] [place] [address] Social History Tobacco Use Types Packs/Day Years [...] Telephone Encounter - Buffy Christian LPN - 09/17/2023 3:53 PM EDT Critical Result line call received from Eileen with [facility] Anticoag. INR today 1.2 same as on Thursday. Low since Ortho injection hold. Warfarin today 10mg Tomorrow warfarin 10mg Thursday and Thursday 7.5 Recheck Thursday Please call Patient if Lovenox is indicated. Update PCP now please. documented in this encounter Plan of Treatment Upcoming Encounters Date Type Department Care Team (Late st Contact Info) Description 01/26/2025 1:15 PM EDT Office Visit [facility] MEDICINE [address] [place] [address] Sancho Yoon MD [address] [place] [address] 03/15/2025 8:00 AM EDT Office Visit [facility] ADULT DENTAL [address] [place] [address] Yi Sanchez documented as of this encounter Visit Diagnoses Not on filedocumented in this encounter Additional Health Concerns Assessment Noted Time PHQ-9 Depression Total Score: 3 03/23/20 23 1:07 PM EDT documented as of this encounter Care Teams Graduate Internship Relationship Specialty Start Date End Date Sancho Yoon MD [address] [place] [address] PCP - General Internal Medicine 08/16/14 documented as of this encounter
--- OUTSIDE RECORDS SUMMARY | 2024-12-28 16:25 | XMS_ITS | Encounter Summary ---
Author Organization [employer] Address [address] [facility] 7t [place] [address] Care Team Providers Care Professor Of Special Education Name Role Phone Sancho Yoon MD Primary Care Provide r Reason for Visit * Reason Onset Date Comments Med Refill 06/27/2024 Encounter Details Date Type Department Care Team ([facility] st Contact Info) Description 06/27/2024 Telephone [facility] MEDICINE [address] [place], [place] [phone] Sancho Yoon MD 230 [place], [place] [phone] Med Refill Social History Tobacco Use Types [...] encounter Miscellaneous Notes * Telephone Encounter - Harish Mayberry - 06/27/2024 11:08 AM EDT TC from pt requesting medication refill. Medications needing refill : oxyCODONE (Roxicodone) 5 MG immediate release tablet To be sent to: [facility] - [place], [place] - [address] [place] [address] documented in this encounter Plan of Treatment Upcoming Encounters Date Type Department Care Team (Late st Contact Info) Description 01/26/2025 1:15 PM EDT Office Visit [facility] MEDICINE [address] [place] [address] Sancho Yoon MD 230 [place] [address] 03/15/2025 8:00 AM EDT Office Visit [facility] ADULT DENTAL 230 [place] [address] Yi Sanchez documented as of this encounter Visit Diagnoses Not on filedocumented in this encounter Additional Health Concerns Assessment Noted Time PHQ-9 Depression Total Score: 3 03/23/20 23 1:07 PM EDT documented as of this encounter Care Teams Professor Of Special Education Relationship Specialty Start Date End Date Sancho Yoon MD [address] [place] [address] PCP - General Internal Medicine 08/16/14 documented as of this encounter
--- OUTSIDE RECORDS SUMMARY | 2024-12-28 16:25 | XMS_ITS | Encounter Summary ---
Author Organization [facility] Address [address] [employer] [address] 7t [place] [address] Care Team Providers Care Portfolio Administrator Name Role Phone Sancho Yoon MD Primary Care Provide r Encounter Details Date Type Department Care Team (Latest Contact Info) Description 07/04/2022 Abstract [facility] CONVERSIONS Dental, Provider, DDS Social History [...] 01/26/2025 1:15 PM EDT Office Visit [facility] MEDICINE [address] [place] [address] Sancho Yoon MD [address] [place] [address] 03/15/2025 8:00 AM EDT Office Visit [facility] ADULT DENTAL 230 [place] [address] Yi Sanchez documented as of this encounter Visit Diagnoses Not on filedocumented in this encounter Care Teams Portfolio Administrator Relationship Specialty Start Date End Date Sancho Yoon MD [address] [place], [place] [phone] PCP - General Internal Medicine 08/16/14 documented as of this encounter
--- OUTSIDE RECORDS SUMMARY | 2024-12-28 16:25 | XMS_ITS | Encounter Summary ---
Author Organization [employer] Address [address] [facility] 7t [place] [address] Care Team Providers Care Plant Wrapper Name Role Phone Sancho Yoon MD Primary Care Provide r Reason for Visit * Reason Onset Date Comments Med Refill 08/22/2024 Encounter Details Date Type Department Care Team ([facility] st Contact Info) Description 08/22/2024 Telephone [facility] [address] [place], [place] [phone] Sancho Yoon MD [address] [place], [place] [phone] Med Refill Social History Tobacco Use Types [...] * Telephone Encounter - Antonette Chapman - 08/22/2024 9:44 AM EDT TC from pt requesting medication refill. Medications needing refill : oxyCODONE (Roxicodone) 5 MG immediate release tablet To be sent to: [facility] - [place], [place] - [address] [place] [address] documented in this encounter Plan of Treatment Upcoming Encounters Date Type Department Care Team (Late st Contact Info) Description 01/26/2025 1:15 PM EDT Office Visit [facility] [address] [place] [address] Sancho Yoon MD [address] [place] [address] 03/15/2025 8:00 AM EDT Office Visit [facility] ADULT DENTAL [address] [place] [address] Yi Sanchez documented as of this encounter Visit Diagnoses Not on filedocumented in this encounter Additional Health Concerns Assessment Noted Time PHQ-9 Depression Total Score: 3 03/23/20 23 1:07 PM EDT documented as of this encounter Care Teams Plant Wrapper Relationship Specialty Start Date End Date Sancho Yoon MD [address] [place] [address] PCP - General Internal Medicine 08/16/14 documented as of this encounter
--- OUTSIDE RECORDS SUMMARY | 2024-12-28 16:25 | XMS_ITS | Encounter Summary ---
Author Organization [employer] Address 75 [facility] 7t [place] [address] Care Team Providers Care Hogshead Packer Name Role Phone Sancho Yoon MD Primary Care Provide r Reason for Visit * Reason Comments Med Refill Encounter Details Date Type Department Care Team ([facility] st Contact Info) Description 07/02/2024 Refill [facility] [address] [place], [place] [phone] Sancho Yoon MD [address] [place] [address] Mild intermittent asthma without complication Social History Tobacco Use Types Packs/Day Years [...] Description 01/26/2025 1:15 PM EDT Office Visit [facility] MED[facility] [address] [place] [address] Sancho Yoon MD [address] [place] [address] 03/15/2025 8:00 AM EDT Office Visit [facility] ADULT DENTAL [address] [place] [address] Yi Sanchez documented as of this encounter Visit Diagnoses Diagnosis Mild intermittent asthma without complication documented in this encounter Additional Health Concerns Assessment Noted Time PHQ-9 Depression Total Score: 3 03/23/20 23 1:07 PM EDT documented as of this encounter Care Teams Hogshead Packer Relationship Specialty Start Date End Date Sancho Yoon MD [address] [place] [address] PCP - General Internal Medicine 08/16/14 documented as of this encounter
--- OUTSIDE RECORDS SUMMARY | 2024-12-28 16:25 | XMS_ITS | Encounter Summary ---
Author Organization [employer] Address [address] [facility] [address] 7t [place] [address] Care Team Providers Care Gas Refrigerator Servicer Name Role Phone Sancho Yoon MD Primary Care Provide r Encounter Details Date Type Department Care Team (Late st Contact Info) Description 12/16/2024 Refill [facility] [address] [place] [address] Carisa Houston RN Chronic right-sided low back pain with right-sided sciatica (Primary Dx) Social History Tobacco Use Types Packs/Day Years [...] Description 01/26/2025 1:15 PM EDT Office Visit [facility] [address] [place] [address] Sancho Yoon MD [address] [place] [address] 03/15/2025 8:00 AM EDT Office Visit [facility] ADULT DENTAL [address] [place] [address] Yi Sanchez documented as of this encounter Visit Diagnoses Diagnosis Chronic right-sided low back pain with right-sided sciatica- Primary documented in this encounter Additional Health Concerns Assessment Noted Time PHQ-9 Depression Total Score: 0 09/29/20 24 9:48 AM EST documented as of this encounter Care Teams Gas Refrigerator Servicer Relationship Specialty Start Date End Date Sancho Yoon MD [address] [place] [address] PCP - General Internal Medicine 08/16/14 documented as of this encounter
--- OUTSIDE RECORDS SUMMARY | 2024-12-28 16:25 | XMS_ITS | Encounter Summary ---
Author Organization [employer] Address [address] [facility] [address] 7t [place] [address] Care Team Providers Care Marketing Technology Coordinator Name Role Phone Sancho Yoon MD Primary Care Provide r Encounter Details Date Type Department Care Team ([facility] Contact Info) Description 12/20/2024 Telephone [facility] [address] [place], [place] [phone] 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, ELISEO [address] [place] [address] Social History Tobacco Use Types Packs/Day Years [...] Telephone Encounter - 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 RN - 12/20/2024 3:49 PM EST .What PIPE RECOVERY SPECIALIST Tier would you like this patient to be? Tier 1 = HIGH RISK, Monthly PIPE RECOVERY SPECIALIST visits Tier 2 = MODerate RISK, Q3 Month visits Tier 3 = LOW RISK = Q4-6 month visits documented in this encounter Plan of Treatment Upcoming Encounters Date Type Department Care Team (Late st Contact Info) Description 01/26/2025 1:15 PM EDT Office Visit [facility] [address] [place] [address] Sancho Yoon MD 230 [place] [address] 03/15/2025 8:00 AM EDT Office Visit [facility] ADULT DENTAL [address] [place] [address] Yi Sanchez documented as of this encounter Visit Diagnoses Not on filedocumented in this encounter Additional Health Concerns Assessment Noted Time PHQ-9 Depression Total Score: 0 09/29/20 24 9:48 AM EST documented as of this encounter Care Teams Marketing Technology Coordinator Relationship Specialty Start Date End Date Sancho Yoon MD [address] [place] [id number] PCP - General Internal Medicine 08/16/14 documented as of this encounter
--- OUTSIDE RECORDS SUMMARY | 2024-12-28 16:25 | XMS_ITS | Encounter Summary ---
Author Organization [employer] Address [address] [facility] [address] 7[address] [place] [address] Care Team Providers Care Rock Crusher Operator Name Role Phone Sancho Yoon MD Primary Care Provide r Reason for Visit * Reason Comments Med Refill Encounter Details Date Type Department Care Team ([facility] st Contact Info) Description 01/24/2024 Refill [facility] 230 [place], [place] [phone] Sancho Yoon MD 230 [place], [place] [phone] Social History Tobacco Use Types Packs/Day Years [...] Description 01/26/2025 1:15 PM EDT Office Visit [facility] 230 [place] [address] Sancho Yoon MD 230 [place] [address] 03/15/2025 8:00 AM EDT Office Visit [facility] ADULT DENTAL 230 [place] [address] Yi Sanchez documented as of this encounter Visit Diagnoses Not on filedocumented in this encounter Additional Health Concerns Assessment Noted Time PHQ-9 Depression Total Score: 3 03/23/20 23 1:07 PM EDT documented as of this encounter Care Teams Rock Crusher Operator Relationship Specialty Start Date End Date Sancho Yoon MD 230 [place] [address] PCP - General Internal Medicine 08/16/14 documented as of this encounter
--- OUTSIDE RECORDS SUMMARY | 2024-12-28 16:25 | XMS_ITS | Encounter Summary ---
Author Organization [employer] Address 75 [facility] 7t [place] [address] Care Team Providers Care Inker Machine Name Role Phone Sancho Yoon MD Primary Care Provide r Reason for Visit * Reason Comments Med Refill Encounter Details Date Type Department Care Team ([facility] st Contact Info) Description 02/08/[address] [facility] [address] [place], [place] [phone] Sancho Yoon MD [address] [place], [place] [phone] Other chronic pain Social History Tobacco Use [...] Description 01/26/2025 1:15 PM EDT Office Visit [facility] [address] [place] [address] Sancho Yoon MD 230 [place] [address] 03/15/2025 8:00 AM EDT Office Visit [facility] ADULT DENTAL [address] [place] [address] Yi Sanchez documented as of this encounter Visit Diagnoses Diagnosis Other chronic pain documented in this encounter Additional Health Concerns Assessment Noted Time PHQ-9 Depression Total Score: 3 03/23/20 23 1:07 PM EDT documented as of this encounter Care Teams Inker Machine Relationship Specialty Start Date End Date Sancho Yoon MD [address] [place] [address] PCP - General Internal Medicine 08/16/14 documented as of this encounter
--- OUTSIDE RECORDS SUMMARY | 2024-12-28 16:25 | XMS_ITS | Encounter Summary ---
Author Organization [employer] [facility] Address [address] [facility] 7t [place] [address] Care Team Providers Care Deputy Program Manager Name Role Phone Sancho Yoon MD Primary Care Provide r Encounter Details Date Type Department Care Team (Latest Contact Info) Description 10/26/2019 Abstract [facility] CONVERSIONS Dental, Provider, DDS Social History [...] Description 01/26/2025 1:15 PM EDT Office Visit [facility] MEDICINE [address] [place] [address] Sancho Yoon MD [address] [place] [address] 03/15/2025 8:00 AM EDT Office Visit [facility] ADULT DENTAL 230 [place] [address] Yi Sanchez documented as of this encounter Visit Diagnoses Not on filedocumented in this encounter Care Teams Deputy Program Manager Relationship Specialty Start Date End Date Sancho Yoon MD [address] [place], [place] [phone] PCP - General Internal Medicine 08/16/14 documented as of this encounter
--- OUTSIDE RECORDS SUMMARY | 2024-12-28 16:25 | XMS_ITS ---
Author Organization [facility] Address [address] [place] [phone] Care Team Providers Care Manager Of Exhibitions And Collections Name Role Phone Raman Mayberry MD, Sancho Primary Care Provide Joshua Harvey [phone] REASON FOR VISIT Patient presents today for hx hep c Encounters Encounter Location Date Provider Diagnosis [facility] [address] [place] [address] 12/22/2024 Joshua Valdivia PLAN OF TREATMENT Next Appt Details Provider Name:Joshua Valdivia , 04/27/2025 10:20:00 AM, [address], [address], [place], [phone],
--- OUTSIDE RECORDS SUMMARY | 2024-12-28 16:26 | XMS_ITS | Encounter Summary ---
Author Organization [employer] Address 75 [facility] 7t [place] [address] Care Team Providers Care Medical Record Librarian Name Role Phone Sancho Yoon MD Primary Care Provide r Reason for Visit * Reason Comments Med Refill Encounter Details Date Type Department Care Team ([facility] st Contact Info) Description 11/04/2024 Refill [facility] [address] [place], [place] [phone] Sancho Yoon MD [address] [place], [place] [phone] Erectile dysfunction, unspecified erectile dysfunction type Social History Tobacco Use Types Packs/Day Years [...] Description 01/26/2025 1:15 PM EDT Office Visit [facility] [address] [place] [address] Sancho Yoon MD [address] [place] [address] 03/15/2025 8:00 AM EDT Office Visit [facility] ADULT DENTAL [address] [place] [address] Yi Sanchez documented as of this encounter Visit Diagnoses Diagnosis Erectile dysfunction, unspecified erectile dysfunction type documented in this encounter Additional Health Concerns Assessment Noted Time PHQ-9 Depression Total Score: 0 09/29/20 24 9:48 AM EST documented as of this encounter Care Teams Medical Record Librarian Relationship Specialty Start Date End Date Sancho Yoon MD [address] [place] [address] PCP - General Internal Medicine 08/16/14 documented as of this encounter
--- OUTSIDE RECORDS SUMMARY | 2024-12-28 16:26 | XMS_ITS | Encounter Summary ---
Author Organization [employer] Address [address] [facility] [address] 7t [place] [address] Care Team Providers Care Telephone Clerk Name Role Phone Sancho Yoon MD Primary Care Provide r Reason for Visit * Reason Comments Med Refill Encounter Details Date Type Department Care Team ([facility] st Contact Info) Description 10/17/2024 Refill [facility] [address] [place], [place] [phone] Sancho Yoon MD [address] [place] [address] Other chronic pain Social History Tobacco Use [...] encounter Miscellaneous Notes * Telephone Encounter - Jayde Suarez MD - 10/17/2024 5:24 PM EST Sent med already documented in this encounter Plan of Treatment Upcoming Encounters Date Type Department Care Team (Late st Contact Info) Description 01/26/2025 1:15 PM EDT Office Visit [facility] MEDICINE [address] [place] [address] Sancho Yoon MD [address] [place] [address] 03/15/2025 8:00 AM EDT Office Visit [facility] ADULT DENTAL [address] [place] [address] Yi Sanchez documented as of this encounter Visit Diagnoses Diagnosis Other chronic pain documented in this encounter Additional Health Concerns Assessment Noted Time PHQ-9 Depression Total Score: 0 09/29/20 24 9:48 AM EST documented as of this encounter Care Teams Telephone Clerk Relationship Specialty Start Date End Date Sancho Yoon MD [address] [place] [address] PCP - General Internal Medicine 08/16/14 documented as of this encounter
--- OUTSIDE RECORDS SUMMARY | 2024-12-28 16:26 | XMS_ITS | Encounter Summary ---
Author Organization [employer] Address [address] [facility] [address] 7[address] [place] [address] Care Team Providers Care High Tension Tester Name Role Phone Sancho Yoon MD Primary Care Provide r Encounter Details Date Type Department Care Team ([facility] st Contact Info) Description 11/14/2024 Telephone [facility] [address] [place], [place] [phone] Sancho Yoon MD [address] [place] [address] Social History Tobacco Use Types Packs/Day Years [...] [facility] [address] [place] [address] Sancho Yoon MD [address] [place] [address] 03/15/2025 8:00 AM EDT Office Visit [facility] ADULT DENTAL [address] [place] [address] Yi Sanchez documented as of this encounter Visit Diagnoses Not on filedocumented in this encounter Additional Health Concerns Assessment Noted Time PHQ-9 Depression Total Score: 0 09/29/20 24 9:48 AM EST documented as of this encounter Care Teams High Tension Tester Relationship Specialty Start Date End Date Sancho Yoon MD [address] [place] [address] PCP - General Internal Medicine 08/16/14 documented as of this encounter
--- OUTSIDE RECORDS SUMMARY | 2024-12-28 16:26 | XMS_ITS | Encounter Summary ---
Author Organization [employer] Address [address] [facility] 7t [place] [address] Care Team Providers Care Dynamics Ax Solution Architect Name Role Phone Sancho Yoon MD Primary Care Provide r Encounter Details Date Type Department Care Team ([facility] st Contact Info) Description 01/16/2023 Telephone [facility] [address] [place] [address] Sancho Yoon MD [address] [place] [address] Social History Tobacco Use Types Packs/Day Years [...] suspected to have Coronavirus/COVID-19? No / Unsure 01/12/2023 8:33 AM EST documented as of this encounter Miscellaneous Notes * Telephone Encounter - Buffy JUSTICE Christian - 01/16/2023 3:51 PM EST Critical Result call received at this time. INR 1.1 Patient just restarted Warfarin two days ago following spinal injection procedure. Warfarin today 10 mg. Sat.& Thursday 7.5mg and recheck on Thursday. Please update Team Provider with plan. Melody GOMES @ [phone] if needed. documented in this encounter Plan of Treatment Upcoming Encounters Date Type Department Care Team (Late st Contact Info) Description 01/26/2025 1:15 PM EDT Office Visit [facility] MED[facility] [address] [place] [address] Sancho Yoon MD [address] [place] [address] 03/15/2025 8:00 AM EDT Office Visit [facility] ADULT DENTAL [address] [place] [address] Yi Sanchez documented as of this encounter Visit Diagnoses Not on filedocumented in this encounter Care Teams Dynamics Ax Solution Architect Relationship Specialty Start Date End Date Sancho Yoon MD [address] [place] [address] PCP - General Internal Medicine 08/16/14 documented as of this encounter
--- OUTSIDE RECORDS SUMMARY | 2024-12-28 16:26 | XMS_ITS | Clinical Summary ---
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 Encounters Date Type Department Care Team Description 12/28/2024 Telephone [facility] [address] [place] [phone] Sancho Yoon MD CRITICAL RESULT CALL; Anticoagulation 12/28/2024 Orders Only GENERIC EXTERNAL DATA DEPARTMENT Provider, Generic External Data 12/21/2024 Telephone [facility] [address] [place] [address] 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, ELISEO 12/20/2024 Telephone [facility] [address] [place] [address] 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, ELISEO 12/16/2024 Refill [facility] [address] [place] [phone] Carisa Houston RN Chronic right-sided low back pain with right-sided sciatica (Primary Dx) 12/15/2024 8:40 AM EST Office Visit [facility] [address] [place] [phone] Miesha Schwartz DO COVID-19; Influenza A 12/14/2024 Refill [facility] [address] [place] [address] Taylor Aggarwla RN Other chronic pain 12/14/2024 Telephone [facility] [address] [place] [address] Sancho Yoon MD Med Refill 12/07/2024 Orders Only GENERIC EXTERNAL DATA DEPARTMENT Provider, Generic External Data 11/29/2024 Telephone [facility] [address] [place] [address] Sancho Yoon MD January11/24/2024 8:40 AM EST Office Visit [facility] [address] [place] [address] Otilio Del Toro MD Cough in adult patient 11/14/2024 Telephone [facility] [address] [place] [address] Sancho Yoon MD 11/14/2024 Orders Only GENERIC EXTERNAL DATA DEPARTMENT Provider, Generic External Data 11/11/2024 Refill [facility] [address] [place] [address] Sancho Yoon MD Other chronic pain; Pure hypercholesterolemia 11/09/2024 Refill [facility] [address] [place] [address] Sancho Yoon MD Presence of inferior vena cava filter 11/04/2024 Refill [facility] [address] [place] [address] Sancho Yoon MD Erectile dysfunction, unspecified erectile dysfunction type 10/27/2024 Refill [facility] [address] [place] [address] Sancho Yoon MD 10/24/2024 Orders Only GENERIC EXTERNAL DATA DEPARTMENT Provider, Generic External Data 10/17/2024 Refill [facility] [address] [place] [address] Sancho Yoon MD Other chronic pain 10/17/2024 [facility]ill [facility] [address] [facility] [place] [address] Sancho Yoon MD Other chronic pain 10/12/2024 Telephone [facility] [address] [facility] [place] [address] Sancho Yoon MD 10/10/2024 Orders Only GENERIC EXTERNAL DATA DEPARTMENT Provider, Generic External Data 10/05/2024 Orders Only GENERIC EXTERNAL DATA DEPARTMENT Provider, Generic External Data 10/05/2024 Telephone [facility] [address] [facility] [place] [address] Sancho Yoon MD Results 09/29/2024 10:00 AM EST Office Visit [facility] [address] [facility] [place] [address] Sancho Yoon MD Essential hypertension (Primary Dx); Pure hypercholesterolemia; Preventative health care; Skin lesion of left leg; Encounter for immunization 09/29/2024 Travel 09/28/2024 Telephone [facility] [address] [facility] [place] [address] Sancho Yoon MD Referral from Last 3 Months Immunizations Name Administration Dates Next Due Hep A, Adult 06/03/2002 Hep B, adult 09/26/2009,07/25/2009 INFLUENZA INJECTABLE QUADRIV ALANT CCIIV4 MDCK Multi-dose vial 09/14/2019 Influenza High-dose Quadriva lent Preservative Free 09/10/2023,07/30/2023,08/27/2021,09/18 Influenza injectable quadriv alent IIV4 with preservative 09/14/2018,10/17/2016,08/29/2015 Influenza injectable quadriv alent preservative free 08/22/2022,09/14/2019,09/04/2017 Influenza, High Dose Seasona l, Preservative Free 09/29/2024 Influenza, IIV3, injectable 10/29/2022,1 ,08/18/2017,09/04,07/15/2011 Influenza, Split (incl. brett fied surface antigen) 08/17/2013,09/02/2012 Influenza, seasonal, injecta ble, preservative free 08/09/2016 Moderna Covid-19 Vaccine 12+ 03/04/2022, 10/02/2021,02/13/2021,01/16 Pfizer Covid-19 Vaccine 12+ 09/29/2024, Pfizer Covid-19 Vaccine 12+ Bivalent 08/22/2022 Pneumococcal Conjugate PCV 20 03/23/2023 Pneumococcal Polysaccharide PPSV23 05/11/2018, Rabies - IM Fibroblast Culture 04/02/2021 TD (adult), 2 Lf tetanus tox oid, preservative free, adsorbed 07/15/2011 Tdap 03/12/2024,04/02/2021,05/11/2018 Zoster, Recombinant 10/16/2020,08/13/2020 Zoster, live 07/05/2015 Social History Tobacco Use Types Packs/Day Years Used Date Smoking Tobacco: Never Passive Smoke Exposure: Never Smokeless Tobacco: Never Tobacco Cessation:Counseling Given: Not Answered Alcohol Use Standard Drinks/Week Comments Not Currently [...] not to disclose 2021 3:29 PM EST Last Filed Vital Signs Vital Sign Reading [...] oz) 12/15/2024 8:46 A M EST Height 182.9 cm (6') 09/29/2024 9:47 AM EST Body Mass Index 29.86 09/29/2024 9:47 AM EST Plan of Treatment Upcoming Encounters Date Type Department Care Team (Late st Contact Info) Description 01/26/2025 1:15 PM EDT Office Visit [facility] [address] [place] [address] Sancho Yoon MD [address] [place] [address] 03/15/2025 8:00 AM EDT Office Visit [facility] [address] [place] [address] Yi Sanchez Health Maintenance Due Date Last Done Comments CT Colonography 1954 FIT DNA/Cologuard 1955 FIT 1955 FOBT 1955 Sigmoidoscopy 1955 Hepatitis A Vaccines (2 of 2 - Risk 2-dose series) 12/04/2002 06/03/2002 Hepatitis B Vaccines (3 of 3 - Risk 3-dose series) 01/22/2010 09/26/2009, 07/25/2009 RSV Patients and Patients Aged 60 years or older (1 - Risk 60-74 years 1-dose series) 2014 Diabetes: Hemoglobin A1C 01/17/2025 01/18/2024 Dental Oral Exam 03/09/2025 09/07/2024, , 07/23/2023, Additional history exists Dental Prophylaxis 03/09/2025 09/07/2024, 0 02/02/2024, 07/22/2023, Additional history exists Dental X-Ray: Bitewings 09/08/2025 09/07/20, 07/22/2023, 07/04/2022 Alcohol/Substance Use Screening 09/29/2025 09/29/2024 Depression Screening 09/29/2025 09/29/2024, 09/29/20 SDOH Screening 09/29/2025 09/29/2024 Tobacco Screening 09/29/2025 09/29/2024 Dental X-Ray: Full Mouth 07/23/2026 07/22/2023, 10/16 Colonoscopy 02/17/2027 02/17/2022 Colorectal Cancer Screening 02/17/2027 Lipid Panel 10/05/2029 10/05/2024, 08/0 07/2022, 02/11/2021 DTaP/Tdap/Td Vaccines (4 - Td or Tdap) 03/12/2034 03/12/2024, 04/02/2021, 05/11/2018, Additional history exists Zoster Vaccines Completed 10/16/2020, 07/18, 07/05/2015 Pneumococcal Vaccine: 50+ Years Completed 03/23/2023, 05/11/2018, 08/25/2012 COVID-19 Vaccine Completed 09/29/2024, , 08/22/2022, Additional history exists Influenza Vaccine Completed 09/29/2024, , 07/30/2023, Additional history exists HIB Vaccines Aged Out No longer eligi ble based on patient's age to complete this topic HPV Vaccines Aged Out No longer eligi ble based on patient's age to complete this topic IPV Vaccines Aged Out No longer eligi ble based on patient's age to complete this topic Meningococcal Vaccine Aged Out No brunilda onofre eligible based on patient's age to complete this topic RSV under 20 months Aged Out No longe r eligible based on patient's age to complete this topic Rotavirus Vaccines Aged Out No longer eligible based on patient's age to complete this topic Procedures Procedure Name Priority Date/Time Associated Diagnosis Comments PROTHROMBIN TIME WHOLE BLD POC Routine 12/28/2024 3:41 PM EST ~PT, ~INR - ANTI COAG CLINIC Routine 12/28/2024 3:41 PM EST POCT INFLUENZA B (ID NOW RAPID MOLECULAR) Routine 12/15/2024 9:00 AM EST COVID-19 Influenza A POCT INFLUENZA A (ID NOW RAPID MOLECULAR) Routine 12/15/2024 9:00 AM EST COVID-19 Influenza A POCT RAPID COVID ANTIGEN Routine 12/15/2024 9:00 AM EST COVID-19 Influenza A PROTHROMBIN TIME WHOLE BLD POC Routine 12/07/2024 3:28 PM EST ~PT, ~INR - ANTI COAG CLINIC Routine 12/07/2024 3:28 PM EST POCT INFLUENZA B (ID NOW RAPID MOLECULAR) Routine 11/24/2024 9:08 AM EST Cough in adult patient POCT INFLUENZA A (ID NOW RAPID MOLECULAR) Routine 11/24/2024 9:08 AM EST Cough in adult patient POCT RAPID COVID ANTIGEN Routine 11/24/2024 8:57 AM EST Cough in adult patient PROTHROMBIN TIME WHOLE BLD POC Routine 11/14/2024 12:10 PM EST ~PT, ~INR - ANTI COAG CLINIC Routine 11/14/2024 12:10 PM EST PROTHROMBIN TIME WHOLE BLD POC Routine 10/24/2024 3:19 PM EST ~PT, ~INR - ANTI COAG CLINIC Routine 10/24/2024 3:19 PM EST PROTHROMBIN TIME WHOLE BLD POC Routine 10/10/2024 10:20 AM EST ~PT, ~INR - ANTI COAG CLINIC Routine 10/10/2024 10:20 AM EST PROTHROMBIN TIME WHOLE BLD POC Routine 10/05/2024 3:31 PM EST ~PT, ~INR - ANTI COAG CLINIC Routine 10/05/2024 3:31 PM EST LIPID PANEL, STANDARD Routine 10/05/2024 10:25 AM EST Pure hypercholesterolemia COMPREHENSIVE METABOLIC PANEL Routine 10/05/2024 10:25 AM EST Essential hypertension PROPHYLAXIS - ADULT Routine 09/07/2024 8 :00 AM EDT Dental calculus Dental plaque BITEWINGS - 4 RADIOGRAPHIC IMAGES Routine 09/07/2024 8:00 AM EDT PERIODIC ORAL EVALUATION - ESTABLISHED PATIENT Routine 09/07/2024 8:00 AM EDT HEMOGLOBIN A1C Routine 01/18/2024 11:13 AM EST Elevated glucose DIAGNOSTIC - DIAGNOSTIC IMAGING - INTRAORAL - COMPREHENSIVE SERIES OF RADIOGRAPHIC IMAGES Routine 07/22/2023 3:00 PM EDT Periodontal disease Dental calculus HM COLONOSCOPY Routine 02/17/2022 from Last 3 Months or Most Recently Relevant to Health Maintenance Results * (ABNORMAL) PROTHROMBIN TIME WHOLE BLD POC (12/28/2024 3:41 PM EST) Only the most recent of6 resultswithin the time period is included. Protime 21.0(H) 11.1 - 13.5 sec [facility] 12/28/2024 3:41 PM EST 12/28/2024 3:43 PM EST us Generic External Data Provider LAB BLOOD ORDERAB LES Final Result Performing Organization Address [facility] Co de Phone Number [facility] [address] [place] [phone] * (ABNORMAL) ~PT, ~INR - ANTI COAG CLINIC (12/28/2024 3:41 PM EST) Only the most recent of6 resultswithin the time period is included. Prothrombin Time INR 1.7(H) 0.9 - 1.1 [facility] Comment:METER #: [id number] TERNATIONAL NORMALIZED RATIO (INR) REFERENCE RANGES Reference RangeFor patients not on anticoagulant therapy: 0.9 - 1.1INR ranges for oral anticoagulanttherapy:For prevention and treatment of venous thrombosis and pulmonary embolism: 2.0 - 3.0For acute myocardial infarction with aspirin therapy: 2.0 - 3.0For acute myocardial infarction without aspirin therapy: 3.0 - 4.0For patients with mechanical prosthetic heart valves: 2.5 - 3.5 12/28/2024 3:41 PM EST 12/28/2024 3:43 PM EST us Generic External Data Provider LAB BLOOD ORDERAB LES Final Result Performing Organization Address [facility] de Phone Number [facility] [address] [place] [phone] * Influenza B (ID NOW Rapid Molecular) (12/15/2024 9:00 AM EST) Only the most recent of2 resultswithin the time period is included. Influenza B Negative Negative, Indeterminate [facility] Swab 12/15/2024 9:00 AM EST us Miesha Schwartz DO POINT OF CARE TEST ENTER/MAMADOU T ORDERABLES Final Result Performing Organization Address [facility] Co de Phone Number [facility] [address] [place] [phone] * (ABNORMAL) Influenza A (ID NOW Rapid Molecular) (12/15/2024 9:00 AM EST) Only the most recent of2 resultswithin the time period is included. Pathologist [facility] Influenza A Positive( A) Negative, Indeterminate [facility] Swab 12/15/2024 9:00 AM EST Miesha Schwartz DO POINT OF CARE TEST ENTER/MAMADOU T ORDERABLES Final Result Performing Organization Address [facility]/ZIP Co de Phone Number [facility] [address] [place] [phone] * (ABNORMAL) POCT Rapid COVID Ag (12/15/2024 9:00 AM EST) Only the most recent of2 resultswithin the time period is included. Rapid COVID Ag Positive [facility] Swab 12/15/2024 9:00 AM EST Miesha Schwartz DO POINT OF CARE TEST ENTER/MAMADOU T ORDERABLES Final Result Performing Organization Address [facility] Co de Phone Number [facility] [address] [place] [phone] * (ABNORMAL) Lipid Panel, Standard (10/05/2024 10:25 AM EST) Pathologist [facility] Triglycerides 179(H) <150 mg/dL [facility] Comment:Desirable Triglyceri de: less than 150 mg/dLBorderline High Triglyceride 150-199 mg/dLHigh Triglyceride: 200-499 mg/dLVery High Triglyceride: greater than or equal to 5OO mg/dL Cholesterol 171 <200 mg/dL [facility] Comment:Desirable Cholestero l: less than 200 mg/dLBorderline High Cholesterol: 200-239 mg/dLHigh Cholesterol: greater than 239 mg/dL LDL Cholesterol Calculated 94 <100 mg/dL [facility] Comment:Desirable LDL: less than 100 mg/dLNear Optimal/Above Optimal LDL: 110- 129 mg/dLBorderline High LDL: 130-159 mg/dLHigh LDL: 160-189 mg/dLVery High LDL: greater than or equal to 190 mg/dL HDL Cholesterol 42 >40 mg/dL [facility] Comment:Desirable HDL: great er than 40 mg/dL Note: This HDL assay may give artificially low results in patients with liver disease. Blood Venous blood specimen / Unknown 10/05/2024 10:25 AM EST 10/05/2024 11:28 AM EST us Sancho Mayberry MD LAB BLOOD ORDERABLES Final Result [facility] [address] [place] [phone] * (ABNORMAL) Comprehensive Metabolic Panel (10/05/2024 10:25 AM EST) Sodium 139 135 - 145 mmol/L [facility] Potassium 4.0 3.3 - 5.1 mmol/L [facility] Chloride 107 96 - 108 mmol/L [facility] Carbon Dioxide 27 22 - 29 mmol/L [facility] Anion Gap 9(L) 12 - 20 [facility] Urea Nitrogen (BUN) 16 9 - 16 mg/dL [facility] Creatinine, Serum 0.89 0.5 - 1.4 mg/dL [facility] Estimated Glomerular Filt Rate >60 [facility] Comment:Chronic Kidney Disea se: Estimated GFR < 60 mL/min/[id number] Kidney Disease: Estimated GFR < 15 mL/min/1.73m2 Glucose 106 60 - 115 mg/dL [facility] Calcium 8.7 8.4 - 10.2 mg/dL [facility] Bilirubin, Total 0.5 0.0 - 1.0 mg/dL [facility] Aspartate Amino Transferase 38(H) 5 - 37 U/L [facility] Alanine Aminotransferase 38 0 - 40 U/L [facility] Total Protein 7.5 6.5 - 8.0 g/dL [facility] Albumin Level 4.2 3.5 - 5.0 g/dL [facility] Alkaline Phosphatase 67 39 - 117 U/L [facility] Blood Venous blood specimen / Unknown 10/05/2024 10:25 AM EST 10/05/2024 11:28 AM EST Sancho Mayberry MD LAB BLOOD ORDERABLES Final Result Performing Organization Address City/[facility]/ZIP Co de Phone Number [facility] [address] [place] [phone] [phone] * (ABNORMAL) Hemoglobin A1c (01/18/2024 11:13 AM EST) Hemoglobin A1c 6.1(H) <6.0 % [facility] Comment:Hemoglobin A1C Refer ence Range Adults: 4.8 - 6.0 % Non diabetic: < 6.0 % Goal: < 7.0 %Additional Action Suggested: > 8.0 %Note: Hemoglobin A1c results are invalid for patients with abnormal amounts of HbF. Blood transfusions may impact the HbA1c concentration in the patient sample. Estimated Average Glucose 128 mg/dL [facility] Comment:eAG = Estimated ave rage glucose which is %A1C expressed asaverage glucose, using the formula of the [id number] Glucose study (ADAG), Diabetes Care, Vol.31,#8,Jun. 2007 Blood Venous blood specimen / Unknown 01/18/2024 11:13 AM EST 01/18/2024 1:14 PM EST Sancho Mayberry MD LAB BLOOD ORDERABLES Final Result Performing Organization Address City/[facility]/ZIP Co de Phone Number [facility] [address] [place] [phone] [phone] * Hm Colonoscopy (02/17/2022) Colonoscopy performed Historical Provider HEALTH MAINTENANCE Edited Result - Final from Last 3 Months or Most Recently [place]vant [place] [address] [facility] DUAL COMPLETE [facility] [place] [address] Care Teams Bee Farmer Relationship Specialty Start Date End Date Sancho Yoon MD [address] [place] [address] PCP - General Internal Medicine 08/16/14
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
--- OUTSIDE RECORDS SUMMARY | 2024-12-28 16:26 | XMS_ITS | Encounter Summary ---
Author Organization [employer] Address [address] [facility] [address] [place] [address] Care Team Providers Care Liner Reroll Tender Name Role Phone Sancho Yoon MD Primary Care Provide r Reason for Visit * Reason Onset Date Comments January Recall 11/29/2024 Encounter Details Date Type Department Care Team ([facility] st Contact Info) Description 11/29/2024 Telephone [facility] [address] [place] [address] Sancho Yoon MD [address] [place] [address] January Recall Social History Tobacco Use Types Packs/Day Years [...] encounter Miscellaneous Notes * Telephone Encounter - Liliana Landa [place] - 11/29/2024 4:08 PM EST T/C- Tray Setter Left Voice Mail to return call to schedule an appointment. Recall letter sent. Appointment: Office Visit Note: HTN Month: January With: Raman Please schedule appointment if Patient calls Back. documented in this encounter Plan of Treatment Upcoming Encounters Date Type Department Care Team (Late st Contact Info) Description 01/26/2025 1:15 PM EDT Office Visit [facility] MED[facility]INE [address] [place] [address] Sancho Yoon MD [address] [place] [address] 03/15/2025 8:00 AM EDT Office Visit [facility] ADULT DENTAL [address] [place] [address] Yi Sanchez documented as of this encounter Visit Diagnoses Not on filedocumented in this encounter Additional Health Concerns Assessment Noted Time PHQ-9 Depression Total Score: 0 09/29/20 24 9:48 AM EST documented as of this encounter Care Teams Liner Reroll Tender Relationship Specialty Start Date End Date Sancho Yoon MD [address] [place] [address] PCP - General Internal Medicine 08/16/14 documented as of this encounter
--- OUTSIDE RECORDS SUMMARY | 2024-12-28 16:26 | XMS_ITS | Encounter Summary ---
Author Organization [employer] Address [address] [place] [address] Care Team Providers Care Funeral Home Location Manager Name Role Phone Sanhco Yoon MD Primary Care Provide r Encounter Details Date Type Department Care Team (Late st Contact Info) Description 12/07/2024 Orders Only GENERIC EXTERNAL DATA DEPARTMENT Provider, Generic External Data Social History Tobacco Use Types Packs/Day Years [...] 1:15 PM EDT Office Visit [facility] MEDICINE [address] [place] [address] Sancho Yoon MD [address] [place] [address] 03/15/2025 8:00 AM EDT Office Visit [facility] ADULT DENTAL [address] [place] [address] Yi Sanchez documented as of this encounter Procedures Procedure Name Priority Date/Time Associated Diagnosis Comments PROTHROMBIN TIME WHOLE BLD POC Routine 12/07/2024 3:28 PM EST ~PT, ~INR - ANTI COAG CLINIC Routine 12/07/2024 3:28 PM EST documented in this encounter Results * (ABNORMAL) PROTHROMBIN TIME WHOLE BLD POC (12/07/2024 3:28 PM EST) Protime 34.9(H) 11.1 - 13.5 sec [facility] 12/07/2024 3:28 PM EST 12/07/2024 3:31 PM EST us Generic External Data Provider LAB BLOOD ORDERAB LES Final Result [facility] [address] [place] [address] [phone] * (ABNORMAL) ~PT, ~INR - ANTI COAG CLINIC (12/07/2024 3:28 PM EST) Prothrombin Time INR 2.9(H) 0.9 - 1.1 [facility] Comment:METER #: [id number] TERNATIONAL NORMALIZED RATIO (INR) REFERENCE RANGES Reference RangeFor patients not on anticoagulant therapy: 0.9 - 1.1INR ranges for oral anticoagulanttherapy:For prevention and treatment of venous thrombosis and pulmonary embolism: 2.0 - 3.0For acute myocardial infarction with aspirin therapy: 2.0 - 3.0For acute myocardial infarction without aspirin therapy: 3.0 - 4.0For patients with mechanical prosthetic heart valves: 2.5 - 3.5 12/07/2024 3:28 PM EST 12/07/2024 3:31 PM EST us Generic External Data Provider LAB BLOOD ORDERAB LES Final Result Performing Organization Address City/State/[facility] Co de Phone Number [facility] [address] [place] [phone] documented in this encounter Visit Diagnoses Not on filedocumented in this encounter Additional Health Concerns Assessment Noted Time PHQ-9 Depression Total Score: 0 09/29/20 24 9:48 AM EST documented as of this encounter Care Teams Funeral Home Location Manager Relationship Specialty Start Date End Date Sancho Yoon MD [address] [place] [phone] PCP - General Internal Medicine 08/16/14 documented as of this encounter
== END 2024-12-28 16:06 | disposition home or self-care (01) ==
LOC: HO.ACS 15:39
PROVIDERS: PCP Internal Medicine; Visit Provider Internal Medicine
DX: Z79.01 Long term (current) use of anticoagulants (principal)

== ENCOUNTER → 2024-12-28 15:39 | Outpatient (BNVA) | payer OTHER, SELFPAY | PROVIDERS: PCP Internal Medicine; Visit Provider Internal Medicine | DX: I26.99 Other pulmonary embolism without acute cor pulmonale (principal); I82.409 Acute embolism and thrombosis of unspecified deep veins of unspecified lower extremity; Z79.01 Long term (current) use of anticoagulants; Z51.81 Encounter for therapeutic drug level monitoring | CPT/HCPCS: 85610; 99211 ==

== ENCOUNTER 2025-01-09 14:54 | Outpatient (AMB) | payer OTHER, SELFPAY ==
[2025-01-09 15:04] LABS: Prothrombin Time Whole Bld POC 43.5 sec (11.1-13.5); ~PT, ~INR - Anti Coag Clinic 3.6 (0.9-1.1)
--- NOTE | 2025-01-09 15:10 | MHC.OFFVISCO ---
Intake Intake Visit Reasons: Anticoagulation Allergies No Known Drug Allergies [NO KNOWN DRUG ALLERGIES] Allergy (Mild, Verified 01/09/25 14:55) NONE Medication List - Last Reconciled 01/09/25 by Yi Briggs RN acetaminophen ER 650 mg PO Q8H PRN albuterol sulfate 90 mcg/actuation (ProAir HFA) 2 puffs inhalation Q4-6H PRN fluoride (sodium) 1.1% (PreviDent 5000 Booster Plus) dental BID fluticasone propionate 110 mcg/actuation (Flovent HFA) 1 puff PO BID hydrocortisone acetate (Anusol-HC) 25 mg DE BID lisinopril 10 mg PO DAILY 30 days meclizine 25 mg PO DAILY PRN oxycodone 5 mg PO Q8H PRN rosuvastatin 5 mg PO BEDTIME sildenafil (Viagra) 100 mg PO DAILY PRN tamsulosin 0.4 mg PO DAILY 90 days tizanidine 2 mg PO Q6H PRN warfarin 7.5 mg See Protocol PO DAILY@1800 Nursing Note INR 3.6 out of therapeutic range Medications and supplements reviewed Patient status: Pt had covid at end of December 11 2024 Medications or supplements: was on paxlovid x 5 days - previous INR was 1.7 and had booster doses Diet: he ate tomatoes to help raise the INR Denies any signs and symptoms of bleeding or clotting or unusual bruising Bleeding, bruising, clotting discussed Nutritional guidance given: instructed to eat small amt of greens today - not to over compensate Dose: decreased today's dose to 5mg and eat greens then resume usual dose - 5mg x 3 days / 7.5mg x 4 days F/U INR Date : 10 days due to labile INR post covid ?? Patient verbalizing understanding of instructions given. Anti-Coag Initial Assessment Social Hx Patient Tobacco Use Status: Never used Tobacco alcohol intake: former Alcohol intake frequency: does not drink Coding Level of Care Code Est Patient Level 1 Diagnoses Current use of anticoagulant therapy Z79.01 Results AMB INR Fingerstick AMB INR Fingerstick 3.6 Last Edit by Yi Briggs RN on 01/09/25 15:04 manual entry Assessment & Plan Assessment & Plan (1) Current use of anticoagulant therapy: Code(s): Z79.01 - detention (current) use of anticoagulants Category: Medical
--- OUTSIDE RECORDS SUMMARY | 2025-01-09 17:14 | XMS_ITS | Encounter Summary ---
Author Organization [employer] Address [address] [facility] [address] [place] [address] Care Team Providers Care Sas Administrator Name Role Phone Sancho Yoon MD Primary Care Provide r Reason for Visit * Reason Onset Date Comments Med Refill 07/25/2024 Encounter Details Date Type Department Care Team ([facility] st Contact Info) Description 07/25/2024 Telephone [facility] MEDICINE [address] [place], [place] [phone] Sancho Yoon MD [address] [place], [place] [phone] Med Refill Social History Tobacco Use Types [...] immediate release tablet To be sent to: [facility] - [place], [place] - [address] [place] [address] documented in this encounter Plan of Treatment Upcoming Encounters Date Type Department Care Team (Late st Contact Info) Description 01/26/2025 1:15 PM EDT Office Visit [facility] [address] [place] [address] Sancho Yoon MD [address] [place] [address] 03/15/2025 8:00 AM EDT Office Visit [facility] ADULT DENTAL [address] [place] [address] Yi Sanchez documented as of this encounter Visit Diagnoses Not on filedocumented in this encounter Additional Health Concerns Assessment Noted Time PHQ-9 Depression Total Score: 3 03/23/20 23 1:07 PM EDT documented as of this encounter Care Teams Sas Administrator Relationship Specialty Start Date End Date Sancho Yoon MD [address] [place] [address] PCP - General Internal Medicine 08/16/14 documented as of this encounter
--- OUTSIDE RECORDS SUMMARY | 2025-01-09 17:14 | XMS_ITS ---
Author Organization [facility] Address [address] [place] [address] Care Team Providers Care Flight Radio Operator Name Role Phone Raman Mayberry MD, Sancho Primary Care Provide r Joshua Hernandez [phone] ALLERGIES No Known Allergies REASON FOR VISIT [...] 7.5 MG Orally Acti ve VITAL SIGNS Temperature 97.7 degrees Fahrenheit 12/22/19 24 Blood pressure systolic 00 mm Hg 12/22/19 24 Blood pressure diastolic 00 mm Hg 024 Height 70.75 in 12/22/2023 Weight 205 lbs 12/22/2023 BMI 28.79 kg/m2 12/22/2023 Encounters Encounter Location Date Provider Diagnosis [facility] [address] [place] [phone] 12/22/2023 Jsohua Valdivia History of hepatitis C Z86.19 ; [...] Name:Joshua Cesar Valdivia , 04/27/2025 10:20:00 AM, [address] [place] [address], [address], [place], [address], Progress Notes * Examination Category Sub-Category Detail [...]
--- OUTSIDE RECORDS SUMMARY | 2025-01-09 17:14 | XMS_ITS | Encounter Summary ---
Author Organization [employer] Address [address] [facility] [address] 7t [place] [address] Care Team Providers Care Parking Meter Attendant Name Role Phone Sancho Yoon MD Primary Care Provide r Encounter Details Date Type Department Care Team (Late st Contact Info) Description 12/16/2024 Refill [facility] MEDICINE [address] [place] [address] Carisa Houston RN Chronic right-sided low back [...] Description 01/26/2025 1:15 PM EDT Office Visit [facility] MEDICINE [address] [place] [address] Sancho Yoon MD [address] [place] [address] 03/15/2025 8:00 AM EDT Office Visit [facility] ADULT DENTAL [address] [place] [address] Yi Sanchez documented as of this encounter Visit Diagnoses Diagnosis Chronic right-sided low back pain with right-sided sciatica- Primary documented in this encounter Additional Health Concerns Assessment Noted Time PHQ-9 Depression Total Score: 0 09/29/20 24 9:48 AM EST documented as of this encounter Care Teams Parking Meter Attendant Relationship Specialty Start Date End Date Sancho Yoon MD [address] [place] [address] PCP - General Internal Medicine 08/16/14 documented as of this encounter
--- OUTSIDE RECORDS SUMMARY | 2025-01-09 17:14 | XMS_ITS | Encounter Summary ---
Author Organization [facility] Address [address] [facility] 7t [place] [address] Care Team Providers Care Software Quality Assurance Specialist Name Role Phone Sancho Yoon MD Primary Care Provide r Encounter Details Date Type Department Care Team (Latest Contact Info) Description 07/04/2022 Abstract [facility] CONVERSIONS Dental, Provider, DDS Social History Tobacco [...] [facility] [address] [place] [address] Sancho Yoon MD [address] [place] [address] 03/15/2025 8:00 AM EDT Office Visit [facility] ADULT DENTAL [address] [place] [address] Yi Sanchez documented as of this encounter Visit Diagnoses Not on filedocumented in this encounter Care Teams Software Quality Assurance Specialist Relationship Specialty Start Date End Date Sancho Yoon MD [address] [place], [place] [phone] PCP - General Internal Medicine 08/16/14 documented as of this encounter
--- OUTSIDE RECORDS SUMMARY | 2025-01-09 17:14 | XMS_ITS | Encounter Summary ---
Author Organization [employer] Address [address] [facility] [address] 7t [place] [address] Care Team Providers Care Bat Lathe Operator Name Role Phone Sancho Yoon MD Primary Care Provide r Encounter Details Date Type Department Care Team (Late st Contact Info) Description 01/09/2025 Orders Only GENERIC EXTERNAL DATA DEPARTMENT Provider, [...] 1:15 PM EDT Office Visit [facility] MEDICINE 230 [place] [address] Sancho Yoon MD [address] [place] [address] 03/15/2025 8:00 AM EDT Office Visit [facility] ADULT DENTAL 230 [place] [address] Yi Sanchez documented as of this encounter Procedures Procedure Name Priority Date/Time Associated Diagnosis Comments PROTHROMBIN TIME WHOLE BLD POC Routine 01/09/2025 3:01 PM EST ~PT, ~INR - ANTI COAG CLINIC Routine 01/09/2025 3:01 PM EST documented in this encounter Results * (ABNORMAL) PROTHROMBIN TIME WHOLE BLD POC (01/09/2025 3:01 PM EST) Protime 43.5(H) 11.1 - 13.5 sec [facility] 01/09/2025 3:01 PM EST 01/09/2025 3:03 PM EST us Generic External Data Provider LAB BLOOD ORDERAB LES Final Result [facility] [address] [place] [phone] * (ABNORMAL) ~PT, ~INR - ANTI COAG CLINIC (01/09/2025 3:01 PM EST) Prothrombin Time INR 3.6(H) 0.9 - 1.1 [facility] Comment:METER #: [id number] TERNATIONAL NORMALIZED RATIO (INR) REFERENCE RANGES Reference RangeFor patients not on anticoagulant therapy: 0.9 - 1.1INR ranges for oral anticoagulanttherapy:For prevention and treatment of venous thrombosis and pulmonary embolism: 2.0 - 3.0For acute myocardial infarction with aspirin therapy: 2.0 - 3.0For acute myocardial infarction without aspirin therapy: 3.0 - 4.0For patients with mechanical prosthetic heart valves: 2.5 - 3.5 01/09/2025 3:01 PM EST 01/09/2025 3:03 PM EST us Generic External Data Provider LAB BLOOD ORDERAB LES Final Result Performing Organization Address City/State/[facility] Co de Phone Number [facility] [address] [place] [phone] documented in this encounter Visit Diagnoses Not on filedocumented in this encounter Additional Health Concerns Assessment Noted Time PHQ-9 Depression Total Score: 0 09/29/20 24 9:48 AM EST documented as of this encounter Care Teams Bat Lathe Operator Relationship Specialty Start Date End Date Sancho Yoon MD [address] [place] [address] PCP - General Internal Medicine 08/16/14 documented as of this encounter
--- OUTSIDE RECORDS SUMMARY | 2025-01-09 17:14 | XMS_ITS | Encounter Summary ---
Author Organization [employer] Address [address] [facility] 7t [place] [address] Care Team Providers Care Community Service Aide Name Role Phone Sancho Yoon MD Primary Care Provide r Reason for Visit * Reason Comments Med Refill Encounter Details Date Type Department Care Team ([facility] st Contact Info) Description 02/08/2024 Refill [facility] MEDICINE [address] [place], [place] [phone] Sancho Yoon MD [address] [place], [place] [phone] Other chronic pain Social History Tobacco Use [...] 1:15 PM EDT Office Visit [facility] MEDICINE [address] [place] [address] Sancho Yoon MD [address] [place] [address] 03/15/2025 8:00 AM EDT Office Visit [facility] ADULT DENTAL [address] [place] [address] Yi Sanchez documented as of this encounter Visit Diagnoses Diagnosis Other chronic pain documented in this encounter Additional Health Concerns Assessment Noted Time PHQ-9 Depression Total Score: 3 03/23/20 23 1:07 PM EDT documented as of this encounter Care Teams Community Service Aide Relationship Specialty Start Date End Date Sancho Yoon MD [address] [place] [address] PCP - General Internal Medicine 08/16/14 documented as of this encounter
--- OUTSIDE RECORDS SUMMARY | 2025-01-09 17:14 | XMS_ITS | Encounter Summary ---
Author Organization [employer] Address [address] [facility] [address] 7t [place] [address] Care Team Providers Care Car Electronics Installer Name Role Phone Sancho Yoon MD Primary Care Provide r Reason for Visit * Reason Comments Generalized Body Aches Headache Cough Encounter Details Date Type Department Care Team ([facility] st Contact Info) Description 12/15/2024 8:40 AM EST Office Visit [facility] WALK[facility]IN CENTER 230 [place] [address] Miesha Schwartz DO 230 [place], [place] [phone] COVID-19; Influenza A Social History Tobacco Use [...] No sick contacts. History provided by: Patient engineer used: Yes Cough This is a new [...] 1:15 PM EDT Office Visit [facility] MEDICINE [address] [place], [place] [phone] Sancho Yoon MD [address] [place], [place] [phone] 03/15/2025 8:00 AM EDT Office Visit [facility] ADULT DENTAL [address] [facility] [place] [address] Yi Sanchez documented as of this encounter [...] NOW Rapid Molecular) (12/15/2024 9:00 AM EST) [facility] Influenza B Negative Negative, Indeterminate [facility] Swab 12/15/2024 9:00 AM EST Miesha Schwartz DO POINT OF CARE TEST ENTER/MAMADOU T ORDERABLES Final Result Performing Organization Address [facility]/ZIP Co de Phone Number [facility] [address] [place] [phone] * (ABNORMAL) Influenza A (ID NOW Rapid Molecular) (12/15/2024 9:00 AM EST) [facility] Influenza A Positive( A) Negative, Indeterminate [facility] Swab 12/15/2024 9:00 AM EST Miesha Schwartz DO POINT OF CARE TEST ENTER/MAMADOU T ORDERABLES Final Result Performing Organization Address [facility] Co de Phone Number [facility] [address] [place] [phone] * (ABNORMAL) POCT Rapid COVID Ag (12/15/2024 9:00 AM EST) Rapid COVID Ag Positive [facility] Swab 12/15/2024 9:00 AM EST Miesha Schwartz DO POINT OF CARE TEST ENTER/MAMADOU T ORDERABLES Final Result [facility] [address] [place] [phone] [phone] documented in this encounter Visit Diagnoses Diagnosis COVID-19 Influenza A Influenza with other respiratory manifestations documented in this encounter Additional Health Concerns Assessment Noted Time PHQ-9 Depression Total Score: 0 09/29/20 24 9:48 AM EST documented as of this encounter Care Teams Car Electronics Installer Relationship Specialty Start Date End Date Sancho Yoon MD [address] [place] [address] PCP - General Internal Medicine 08/16/14 documented as of this encounter
--- OUTSIDE RECORDS SUMMARY | 2025-01-09 17:14 | XMS_ITS | Encounter Summary ---
Author Organization [employer] Address [address] 7t [place] [address] Care Team Providers Care School Nurse Name Role Phone Sancho Yoon MD Primary Care Provide r Encounter Details Date Type Department Care Team ([facility] Contact Info) Description 12/21/2024 Telephone [facility] [address] [place], [place] [phone] 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, ELISEO [address] [place], [place] [phone] Social History Tobacco Use Types Packs/Day Years [...] TC to pt x2 via BLS ID# [id number]. Pt cancelled todays TIPPING MACHINE OPERATOR [place]. No answer. Lvm for pt to c/b and r/s. documented in this encounter Plan of Treatment Upcoming Encounters Date Type Department Care Team (Late st Contact Info) Description 01/26/2025 1:15 PM EDT Office Visit [facility] MEDICINE [address] [place] [address] Sancho Yoon MD [address] [place] [address] 03/15/2025 8:00 AM EDT Office Visit [facility] ADULT DENTAL [address] [place] [address] Yi Sanchez documented as of this encounter Visit Diagnoses Not on filedocumented in this encounter Additional Health Concerns Assessment Noted Time PHQ-9 Depression Total Score: 0 09/29/20 24 9:48 AM EST documented as of this encounter Care Teams School Nurse Relationship Specialty Start Date End Date Sancho Yoon MD [address] [place] [address] PCP - General Internal Medicine 08/16/14 documented as of this encounter
--- OUTSIDE RECORDS SUMMARY | 2025-01-09 17:14 | XMS_ITS | Encounter Summary ---
Author Organization [employer] Address [address] [facility] 7t [place] [address] Care Team Providers Care Pcat Instructor Name Role Phone Sancho Yoon MD Primary Care Provide r Reason for Visit * Reason Onset Date Comments Appointment Request 04/05/2024 Encounter Details Date Type Department Care Team ([facility] Contact Info) Description 04/05/2024 Telephone [facility] MEDICINE [address] [place] [address] Sancho Yoon MD [address] [place], [place] [phone] Appointment Request Social History Tobacco Use Types [...] to know if there is any upcoming CIGAR HEAD HOLER visits to be scheduled. Please contact pt at [phone]. documented in this encounter Plan of Treatment Upcoming Encounters Date Type Department Care Team (Late st Contact Info) Description 01/26/2025 1:15 PM EDT Office Visit [facility] MEDICINE [address] [place] [address] Sancho Yoon MD [address] [place] [address] 03/15/2025 8:00 AM EDT Office Visit [facility] ADULT DENTAL 230 [place] [address] Yi Sanchez documented as of this encounter Visit Diagnoses Not on filedocumented in this encounter Additional Health Concerns Assessment Noted Time PHQ-9 Depression Total Score: 3 03/23/20 23 1:07 PM EDT documented as of this encounter Care Teams Pcat Instructor Relationship Specialty Start Date End Date Sancho Yoon MD [address] [place] [address] PCP - General Internal Medicine 08/16/14 documented as of this encounter
--- OUTSIDE RECORDS SUMMARY | 2025-01-09 17:14 | XMS_ITS | Encounter Summary ---
Author Organization [employer] Address [address] [facility] [address] 7t [place] [address] Care Team Providers Care Cotton Ball Machine Tender Name Role Phone Sancho Yoon MD Primary Care Provide r Reason for Visit * Reason Comments Med Refill Encounter Details Date Type Department Care Team ([facility] st Contact Info) Description 11/18/2023 Refill [facility] 230 [place], [place] [phone] Chad Foley MD 230 [place], [place] [phone] Social History Tobacco Use Types Packs/Day Years [...] Description 01/26/2025 1:15 PM EDT Office Visit [facility] MEDICINE [address] [place] [address] Sancho Yoon MD [address] [place] [address] 03/15/2025 8:00 AM EDT Office Visit [facility] ADULT DENTAL [address] [place] [address] Yi Sanchez documented as of this encounter Visit Diagnoses Not on filedocumented in this encounter Additional Health Concerns Assessment Noted Time PHQ-9 Depression Total Score: 3 03/23/20 23 1:07 PM EDT documented as of this encounter Care Teams Cotton Ball Machine Tender Relationship Specialty Start Date End Date Sancho Yoon MD [address] [place] [address] PCP - General Internal Medicine 08/16/14 documented as of this encounter
--- OUTSIDE RECORDS SUMMARY | 2025-01-09 17:14 | XMS_ITS | Encounter Summary ---
Author Organization [employer] Address [address] [facility] [address] 7t [place] [address] Care Team Providers Care Medical Artist Name Role Phone Sancho Yoon MD Primary Care Provide r Encounter Details Date Type Department Care Team ([facility] st Contact Info) Description 09/14/2023 Telephone [facility] MEDICINE [address] [place] [address] Sancho Yoon MD [address] [place] [address] Social History Tobacco Use Types Packs/Day Years [...] Office Visit [facility] MEDICINE [address] [place] [address] Sancho Yoon MD 230 [place] [address] 03/15/2025 8:00 AM EDT Office Visit [facility] ADULT DENTAL [address] [place] [address] Yi Sanchez documented as of this encounter Visit Diagnoses Not on filedocumented in this encounter Additional Health Concerns Assessment Noted Time PHQ-9 Depression Total Score: 3 03/23/20 23 1:07 PM EDT documented as of this encounter Care Teams Medical Artist Relationship Specialty Start Date End Date Sancho Yoon MD [address] [place] [address] PCP - General Internal Medicine 08/16/14 documented as of this encounter
--- OUTSIDE RECORDS SUMMARY | 2025-01-09 17:14 | XMS_ITS | Encounter Summary ---
Author Organization [employer] Address [address] [facility] 7t [place] [address] Care Team Providers Care Senior Marketing Coordinator Name Role Phone Sancho Yoon MD Primary Care Provide r Reason for Visit * Reason Comments Med Refill Encounter Details Date Type Department Care Team ([facility] st Contact Info) Description 10/21/2023 Refill [facility] MEDICINE [address] [place], [place] [phone] Sancho Yoon MD [address] [place] [address] Pure hypercholesterolemia Social History Tobacco Use Types [...] Visit [facility] MEDICINE [address] [place] [address] Sancho Yoon MD [address] [place] [address] 03/15/2025 8:00 AM EDT Office Visit [facility] ADULT DENTAL 230 [place] [address] Yi Sanchez documented as of this encounter Visit Diagnoses Diagnosis Pure hypercholesterolemia documented in this encounter Additional Health Concerns Assessment Noted Time PHQ-9 Depression Total Score: 3 03/23/20 23 1:07 PM EDT documented as of this encounter Care Teams Senior Marketing Coordinator Relationship Specialty Start Date End Date Sancho Yoon MD [address] [place] [address] PCP - General Internal Medicine 08/16/14 documented as of this encounter
--- OUTSIDE RECORDS SUMMARY | 2025-01-09 17:14 | XMS_ITS | Encounter Summary ---
Author Organization [employer] Address [address] [facility] 7t [place] [address] Care Team Providers Care Refuge Manager Name Role Phone Sancho Yoon MD Primary Care Provide r Reason for Visit * Reason Onset Date Comments CRITICAL RESULT CALL 12/28/2024 Anticoagulation 12/28/2024 Encounter Details Date Type Department Care Team ([facility] st Contact Info) Description 12/28/2024 Telephone [facility] MEDICINE 230 [place] [address] Sancho Yoon MD [address] [place] [address] CRITICAL RESULT CALL; Anticoagulation Social History Tobacco Use Types Packs/Day Years [...] encounter Miscellaneous Notes * Telephone Encounter - Arlette Head RN - 12/28/2024 4:06 PM EST Spoke with covering provider Kim Wise NP who reviewed information and is in agreement with plan by coumadin clinic as stated below: today 12/28/24 10mg warfarin 12/29/24 10mg warfarin Thursday12/30/24 recheck INR also declines lovenox bridge. Called [facility] to inform of this from covering provider, advised PCP out of office today but if any further updates from PCP will update clinic. [facility] verbalized understanding, no further questions. * Telephone Encounter - Clementine Owens RN - 12/28/2024 3:51 PM EST Incoming call to the Critical Result line 12/28/24 at 3:52 PM Name of Caller/Facility: [facility] Callback number: [phone] Reason for Call: INR of 1.7 today. Range of 2.5-3. Pt missed a dose. Per [facility] wanting to send to PCPto review in case wants pt on Lovenox bridge. Pt does not have rx at home. Orders for patient to take 10mg warfarin today, and return on Thursday12/30/24 for recheck. Above results verbally discussed with Kt Team nurse at Ext [phone]. In basket message to be sent asHIGH PRIORITY to Ordering Provider and Team nurses for follow up documented in this encounter Plan of Treatment Upcoming Encounters Date Type Department Care Team (Late st Contact Info) Description 01/26/2025 1:15 PM EDT Office Visit [facility] MEDICINE [address] [place] [address] Sancho Yoon MD [address] [place] [address] 03/15/2025 8:00 AM EDT Office Visit [facility] ADULT DENTAL [address] [place] [address] Yi Sanchez documented as of this encounter Visit Diagnoses Not on filedocumented in this encounter Additional Health Concerns Assessment Noted Time PHQ-9 Depression Total Score: 0 09/29/20 24 9:48 AM EST documented as of this encounter Care Teams Refuge Manager Relationship Specialty Start Date End Date Sancho Yoon MD [address] [place] [address] PCP - General Internal Medicine 08/16/14 documented as of this encounter
--- OUTSIDE RECORDS SUMMARY | 2025-01-09 17:14 | XMS_ITS ---
Author Organization [facility] Address [address] [place] [address] Care Team Providers Care Secondary Teacher Name Role Phone Raman Mayberry MD, Sancho Primary Care Provide Joshua Harvey [phone] REASON FOR VISIT RESCHEDULED APPT TOMORROW Encounters Encounter Location Date Provider Diagnosis [facility] [address] [place] [address] 12/21/2024 Joshua Valdivia PLAN OF TREATMENT Next Appt Details Provider Name:Joshua Valdivia , 04/27/2025 10:20:00 AM, [address], [address], [place], [phone],
--- OUTSIDE RECORDS SUMMARY | 2025-01-09 17:14 | XMS_ITS | Encounter Summary ---
Author Organization [employer] Address 75 [facility] 7t [place] [address] Care Team Providers Care Dog Trainer Name Role Phone Sancho Yoon MD Primary Care Provide r Reason for Visit * Reason Onset Date Comments Med Refill 12/14/2024 Encounter Details Date Type Department Care Team ([facility] st Contact Info) Description 12/14/2024 Telephone [facility] MED & PEDS [address] [place], [place] [phone] Sancho Yoon MD [address] [place] [address] Med Refill Social History Tobacco Use Types [...] Description 01/26/2025 1:15 PM EDT Office Visit [facility] MEDICINE 230 [place] [address] Sancho Yoon MD [address] [place] [address] 03/15/2025 8:00 AM EDT Office Visit [facility] ADULT DENTAL [address] [place] [address] Yi Sanchez documented as of this encounter Visit Diagnoses Not on filedocumented in this encounter Additional Health Concerns Assessment Noted Time PHQ-9 Depression Total Score: 0 09/29/20 24 9:48 AM EST documented as of this encounter Care Teams Dog Trainer Relationship Specialty Start Date End Date Sancho Yoon MD [address] [place] [address] PCP - General Internal Medicine 08/16/14 documented as of this encounter
--- OUTSIDE RECORDS SUMMARY | 2025-01-09 17:14 | XMS_ITS | Encounter Summary ---
Author Organization [employer] Address [address] [facility] 7t [place] [address] Care Team Providers Care Home Care Consultant Name Role Phone Sancho Yoon MD Primary Care Provide r Reason for Visit * Reason Comments Med Refill Encounter Details Date Type Department Care Team ([facility] st Contact Info) Description 05/02/2024 Refill [facility] CHC MED & PEDS [address] [place], [place] [phone] Sancho Yoon MD [address] [place], [place] [phone] Other chronic pain Social History Tobacco Use [...] Description 01/26/2025 1:15 PM EDT Office Visit [facility] MEDICINE [address] [place] [address] Sancho Yoon MD [address] [place] [address] 03/15/2025 8:00 AM EDT Office Visit [facility] ADULT DENTAL [address] [place] [address] Yi Sanchez documented as of this encounter Visit Diagnoses Diagnosis Other chronic pain documented in this encounter Additional Health Concerns Assessment Noted Time PHQ-9 Depression Total Score: 3 03/23/20 23 1:07 PM EDT documented as of this encounter Care Teams Home Care Consultant Relationship Specialty Start Date End Date Sancho Yoon MD [address] [place] [address] PCP - General Internal Medicine 08/16/14 documented as of this encounter
--- OUTSIDE RECORDS SUMMARY | 2025-01-09 17:14 | XMS_ITS | Encounter Summary ---
Author Organization [employer] Address 75 [facility] 7t [place] [address] Care Team Providers Care Wildlife Biostation Research Ecologist Name Role Phone Sancho Yoon MD Primary Care Provide r Reason for Visit * Reason Onset Date Comments New Med Request 09/01/2023 Encounter Details Date Type Department Care Team ([facility] st Contact Info) Description 09/01/2023 Telephone [facility] MEDICINE [address] [place] [address] Sancho Yoon MD [address] [place], [place] [phone] New Med Request Social History Tobacco Use [...] 09/08/2023 8:54 AM EDT Received call from [facility] Coumad[facility] clinic regarding INR, spoke to [...] procedure on 09/08/2023. Any questions contact pt. Lithuanian speaker documented in this encounter Plan of Treatment Upcoming Encounters Date Type Department Care Team (Late st Contact Info) Description 01/26/2025 1:15 PM EDT Office Visit [facility] MEDICINE [address] [place], [place] [phone] Sancho Yoon MD [address] [place] [address] 03/15/2025 8:00 AM EDT Office Visit [facility] ADULT DENTAL [facility] [place] [address] Yi Sanchez documented as of this encounter Visit Diagnoses Not on filedocumented in this encounter Additional Health Concerns Assessment Noted Time PHQ-9 Depression Total Score: 3 03/23/20 23 1:07 PM EDT documented as of this encounter Care Teams Wildlife Biostation Research Ecologist Relationship Specialty Start Date End Date Sancho Yoon MD [address] [facility] [place] [address] PCP - General Internal Medicine 08/16/14 documented as of this encounter
--- OUTSIDE RECORDS SUMMARY | 2025-01-09 17:14 | XMS_ITS | Encounter Summary ---
Author Organization [employer] Address [address] [place] [address] Care Team Providers Care Aquaculture Farmer Name Role Phone Sancho Yoon MD Primary Care Provide r Encounter Details Date Type Department Care Team ([facility] st Contact Info) Description 09/17/2023 Telephone [facility] [address] [place] [address] Sancho Yoon MD [address] [place] [address] Social History Tobacco Use Types Packs/Day Years [...] Result line call received from Eileen with [facility] [place]. INR today 1.2 same as on Thursday. Low since Ortho injection hold. Warfarin today 10mg Tomorrow warfarin 10mg Thursday and Thursday 7.5 Recheck Thursday Please call Patient if Lovenox is indicated. Update PCP now please. documented in this encounter Plan of Treatment Upcoming Encounters Date Type Department Care Team (Late st Contact Info) Description 01/26/2025 1:15 PM EDT Office Visit [facility] [address] [place] [id number] Sancho Yoon MD [address] [place] [address] 03/15/2025 8:00 AM EDT Office Visit [facility] [address] [place] [address] Yi Sanchez documented as of this encounter Visit Diagnoses Not on filedocumented in this encounter Additional Health Concerns Assessment Noted Time PHQ-9 Depression Total Score: 3 03/23/20 23 1:07 PM EDT documented as of this encounter Care Teams Aquaculture Farmer Relationship Specialty Start Date End Date Sancho Yoon MD [address] [place] [phone] PCP - General Internal Medicine 08/16/14 documented as of this encounter
--- OUTSIDE RECORDS SUMMARY | 2025-01-09 17:14 | XMS_ITS | Encounter Summary ---
Author Organization [employer] Address [address] [place] [address] Care Team Providers Care Ore Crusher Name Role Phone Sancho Yoon MD Primary Care Provide r Encounter Details Date Type Department Care Team ([facility] Contact Info) Description 12/20/2024 Telephone [facility] [address] [place], [place] [phone] 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, ELISEO [address] [place] [address] Social History Tobacco Use Types Packs/Day Years [...] RN - 12/20/2024 3:49 PM EST .What FRAME CHANGER Tier would you like this patient to be? Tier 1 = HIGH RISK, Monthly FRAME CHANGER visits Tier 2 = MODerate RISK, Q3 Month visits Tier 3 = LOW RISK = Q4-6 month visits documented in this encounter Plan of Treatment Upcoming Encounters Date Type Department Care Team (Late st Contact Info) Description 01/26/2025 1:15 PM EDT Office Visit [facility] [address] [place] [address] Sancho Yoon MD [address] [place] [address] 03/15/2025 8:00 AM EDT Office Visit [facility] ADULT [facility]ENT[facility] [address] [place] [address] Yi Sanchez documented as of this encounter Visit Diagnoses Not on filedocumented in this encounter Additional Health Concerns Assessment Noted Time PHQ-9 Depression Total Score: 0 09/29/20 24 9:48 AM EST documented as of this encounter Care Teams Ore Crusher Relationship Specialty Start Date End Date Sancho Yoon MD [address] [place] [phone] PCP - General Internal Medicine 08/16/14 documented as of this encounter
--- OUTSIDE RECORDS SUMMARY | 2025-01-09 17:14 | XMS_ITS | Encounter Summary ---
Author Organization [employer] Address [address] [facility] 7t [place] [address] Care Team Providers Care Director Water And Waste Services Name Role Phone Sancho Yoon MD Primary Care Provide r Reason for Visit * Reason Comments Med Refill Encounter Details Date Type Department Care Team ([facility] Contact Info) Description 08/19/2023 Refill [facility] [address] [place], [place] [phone] Sancho Yoon MD [address] [place] [address] Social History Tobacco Use Types Packs/Day Years [...] 1:15 PM EDT Office Visit [facility] [address] [place] [address] Sancho Yoon MD [address] [place] [address] 03/15/2025 8:00 AM EDT Office Visit [facility] ADULT [facility] [address] [place] [address] Yi Sanchez documented as of this encounter Visit Diagnoses Not on filedocumented in this encounter Additional Health Concerns Assessment Noted Time PHQ-9 Depression Total Score: 3 03/23/20 23 1:07 PM EDT documented as of this encounter Care Teams Director Water And Waste Services Relationship Specialty Start Date End Date Sancho Yoon MD [address] [place] [address] PCP - General Internal Medicine 08/16/14 documented as of this encounter
--- OUTSIDE RECORDS SUMMARY | 2025-01-09 17:14 | XMS_ITS | Encounter Summary ---
Author Organization [employer] [facility] Address [address] [facility] 7t [place] [address] Care Team Providers Care Foreign Exchange Student Coordinator Name Role Phone Sancho Yoon MD Primary Care Provide r Encounter Details Date Type Department Care Team (Latest Contact Info) Description 04/16/2021 Abstract [facility] CONVERSIONS Dental, Provider, DDS Social History Tobacco [...] Description 01/26/2025 1:15 PM EDT Office Visit [facility] [address] [place] [address] Sancho Yoon MD [address] [place] [address] 03/15/2025 8:00 AM EDT Office Visit [facility] ADULT DENTAL [address] [place] [address] Yi Sanchez documented as of this encounter Visit Diagnoses Not on filedocumented in this encounter Care Teams Foreign Exchange Student Coordinator Relationship Specialty Start Date End Date Sancho Yoon MD [address] [place], [place] [phone] PCP - General Internal Medicine 08/16/14 documented as of this encounter
--- OUTSIDE RECORDS SUMMARY | 2025-01-09 17:14 | XMS_ITS | Encounter Summary ---
Author Organization [employer] Address [address] [facility] 7[address] [place] [address] Care Team Providers Care Rip Tailer Name Role Phone Sancho Yoon MD Primary Care Provide r Reason for Visit * Reason Onset Date Comments Med Refill 04/19/2024 Encounter Details Date Type Department Care Team ([facility] st Contact Info) Description 04/19/2024 Telephone [facility] [address] [place], [place] [phone] Sancho Yoon MD [address] [place], [place] [phone] Med Refill Social History Tobacco Use Types [...] immediate release tablet To be sent to: [facility] documented in this encounter Plan of Treatment Upcoming Encounters Date Type Department Care Team (Late st Contact Info) Description 01/26/2025 1:15 PM EDT Office Visit [facility] [address] [place] [address] Sancho Yoon MD [address] [place] [address] 03/15/2025 8:00 AM EDT Office Visit [facility] ADULT DENTAL [address] [place] [address] Yi Sanchez documented as of this encounter Visit Diagnoses Not on filedocumented in this encounter Additional Health Concerns Assessment Noted Time PHQ-9 Depression Total Score: 3 03/23/20 23 1:07 PM EDT documented as of this encounter Care Teams Rip Tailer Relationship Specialty Start Date End Date Sancho Yoon MD [address] [place] [phone] PCP - General Internal Medicine 08/16/14 documented as of this encounter
--- OUTSIDE RECORDS SUMMARY | 2025-01-09 17:14 | XMS_ITS | Encounter Summary ---
Author Organization [employer] Address [address] [place] [address] Care Team Providers Care Grip Name Role Phone Sancho Yoon MD Primary Care Provide r Reason for Visit * Reason Comments Med Refill Encounter Details Date Type Department Care Team ([facility] st Contact Info) Description 01/24/2024 Refill [facility] [address] [place], [place] [phone] Sancho Yoon MD [address] [place] [address] Social History Tobacco Use Types Packs/Day Years [...] 1:15 PM EDT Office Visit [facility] [address] [place] [address] Sancho Yoon MD [address] [place] [address] 03/15/2025 8:00 AM EDT Office Visit [facility] [address] [place] [address] Yi Sanchez documented as of this encounter Visit Diagnoses Not on filedocumented in this encounter Additional Health Concerns Assessment Noted Time PHQ-9 Depression Total Score: 3 03/23/20 23 1:07 PM EDT documented as of this encounter Care Teams Grip Relationship Specialty Start Date End Date Sancho Yoon MD [address] [place] [address] PCP - General Internal Medicine 08/16/14 documented as of this encounter
--- OUTSIDE RECORDS SUMMARY | 2025-01-09 17:14 | XMS_ITS | Encounter Summary ---
Author Organization [employer] [facility] Address [address] [facility] 7t [place] [address] Care Team Providers Care Bpo Specialist Name Role Phone Sancho Yoon MD Primary Care Provide r Encounter Details Date Type Department Care Team (Late st Contact Info) Description 07/28/2023 Abstract [facility] [address] [place] [address] Mildred Duran [address] [place] [address] Social History Tobacco Use Types Packs/Day Years [...] Description 01/26/2025 1:15 PM EDT Office Visit [facility] [address] [place] [address] Sancho Yoon MD [address] [place] [address] 03/15/2025 8:00 AM EDT Office Visit [facility] ADULT [facility] [address] [place] [address] Yi Sanchez documented as of this encounter Visit Diagnoses Not on filedocumented in this encounter Additional Health Concerns Assessment Noted Time PHQ-9 Depression Total Score: 3 03/23/20 23 1:07 PM EDT documented as of this encounter Care Teams Bpo Specialist Relationship Specialty Start Date End Date Sancho Yoon MD [address] [place] [address] PCP - General Internal Medicine 08/16/14 documented as of this encounter
--- OUTSIDE RECORDS SUMMARY | 2025-01-09 17:14 | XMS_ITS | Encounter Summary ---
Author Organization [employer] [facility] Address [address] [facility] 7t [place] [address] Care Team Providers Care Supervisor Finishing Name Role Phone Sancho Yoon MD Primary Care Provide r Encounter Details Date Type Department Care Team (Late Contact Info) Description 10/29/2022 Orders Only [facility] MEDICINE [address] [place] [phone] Sancho Yoon MD [address] [place] [address] [phone] Pleural scarring (Primary Dx); Abnormal chest CT [...] Description 01/26/2025 1:15 PM EDT Office Visit [facility] MEDICINE [address] [place] [phone] Sancho Yoon MD [address] [place] [address] [phone] 03/15/2025 8:00 AM EDT Office Visit [facility]ULT [facility]AL [address] [facility] [place] [address] Yi Sanchez documented as of this encounter [...] EST) Protime 42.3(H) 11.1 - 13.5 sec [facility] 12/18/2022 2:35 PM EST 12/18/2022 2:37 PM EST us [facility] External Provider LAB BLO OD ORDERABLES Final Result [facility] [address] [place] [phone] * (ABNORMAL) ~PT, ~INR - ANTI COAG CLINIC (12/18/2022 2:35 PM EST) Prothrombin Time INR 3.5(H) 0.9 - 1.1 [facility] Comment:METER #: [id number] TERNATIONAL NORMALIZED RATIO (INR) REFERENCE RANGES Reference [...] 2:35 PM EST 12/18/2022 2:37 PM EST [facility] External Provider LAB BLO OD ORDERABLES Final Result Performing Organization Address [facility] Co de Phone Number [facility] [address] [place] [address] [phone] * (ABNORMAL) PROTHROMBIN TIME WHOLE BLD POC (12/11/2022 2:35 PM EST) Protime 36.7(H) 11.1 - 13.5 sec [facility] 12/11/2022 2:35 PM EST 12/11/2022 2:36 PM EST [facility] External Provider LAB BLO OD ORDERABLES Final Result Performing Organization Address [facility] de Phone Number [facility] [address] [place] [address] [phone] * (ABNORMAL) ~PT, ~INR - ANTI COAG CLINIC (12/11/2022 2:35 PM EST) Prothrombin Time INR 3.1(H) 0.9 - 1.1 [facility] Comment:METER #: [id number] TERNATIONAL NORMALIZED RATIO (INR) REFERENCE RANGES Reference [...] 2:35 PM EST 12/11/2022 2:36 PM EST [facility] External Provider LAB BLO OD ORDERABLES Final Result Performing Organization Address [facility] Co de Phone Number [facility] [address] [place] [phone] * (ABNORMAL) PROTHROMBIN TIME WHOLE BLD POC (12/04/2022 3:39 PM EST) Protime 56.8(H) 11.1 - 13.5 sec [facility] 12/04/2022 3:39 PM EST 12/04/2022 3:40 PM EST [facility] External Provider LAB BLO OD ORDERABLES Final Result Performing Organization Address [facility] Phone Number [facility] [address] [place] [address] [phone] * (ABNORMAL) ~PT, ~INR - ANTI COAG CLINIC (12/04/2022 3:39 PM EST) Prothrombin Time INR 4.7(H) 0.9 - 1.1 [facility] Comment:METER #: [id number] TERNATIONAL NORMALIZED RATIO (INR) REFERENCE RANGES Reference [...] 3:39 PM EST 12/04/2022 3:40 PM EST [facility] External Provider LAB BLO OD ORDERABLES Final Result Performing Organization Address [facility] Co de Phone Number [facility] [address] [place] [address] [phone] * (ABNORMAL) Liver Fibrosis, FibroTest-ActiTest Panel (12/04/2022 10:15 AM EST) Liver Fibrosis Score 0.58 [facility] Liver Fibrosis Stage F2 [facility] Liver Fibrosis Interpretation SEE NOTE [facility] Comment:moderate fibrosisFib ro Test Score [...] (severe fibrosis) Nec Inflam Act Score 0.41 [facility] Nec Inflam Act Grade A1-A2 [facility] Nec Inflam Act Interpretation SEE NOTE [facility] Comment:minimal activityActi Test Score (a) Metavir Score a>=0 and a<=0.17 : A0 (no activity)a>0.17 and a<=0.29 : A0-A1 (no activity)a>0.29 and a<=0.36 : A1 (minimal activity)a>0.36 and a<=0.52 : A1-A2 (minimal activity)a>0.52 and a<=0.60 : A2 (significant activity)a>0.60 and a<=0.62 : A2-A3 (significant activity)a>0.62 and a<=1.00 : A3 (severe activity) NSX-Nszlj-9-Macroglo bulin 275 106 - 279 mg/dL [facility] FIB-Haptoglobin 120 43 - 212 mg/dL [facility] FIB-Apolipoprotein A1 171 94 - 176 mg/dL [facility] FIB-Total Bilirubin 0.8 0.2 - 1.2 mg/dL [facility] FIB-GGT 64 3 - 70 U/L [facility] FIB-ALT 53(A) 9 - 46 U/L [facility] Reference ID [id number] [facility] Footnote SEE NOTE [facility] Comment: The reliability of results [...] and C.The performance characteristics have been determined by[facility] [place]. Ithas not been cleared or approved by the U.S. Food and DrugAdministration. Performance characteristics refer to theanalytical performance of the test.Geddit, the associated logo, [employer] and all associated [employer] holloway are theregistered trademarks of [employer]. All third partymarks - (R) and (TM) - are the property of their respectiveowners. (C) [phone] [employer]. Allrights reserved.THIS TEST WAS PERFORMED AT:[facility] [id number] [place] ??[id number] JERNIGAN MD,PHD,DAYDAY 12/04/2022 10:1 5 AM EST 12/04/2022 10:15 AM EST us [facility] External Provider LAB BLO OD ORDERABLES Final Result [facility] [address] [place] [address] [phone] * Alphafetoprotein, Tumor Marker (12/04/2022 10:15 AM EST) Alpha Fetoprotein 2.5 <6.1 ng/mL [facility] Comment:This test was perfor med using the Deacon Coulterchemiluminescent method. Values obtained fromdifferent assay methods cannot be usedinterchangeably. AFP levels, regardless ofvalue, should not be interpreted as absoluteevidence of the presence or absence of disease.THIS TEST WAS PERFORMED AT:[facility] [address] ([address])[place] [address]MQOYPTINO PALOMARES MD 12/04/2022 10:1 5 AM EST 12/04/2022 10:15 AM EST [facility] External Provider LAB BLO OD ORDERABLES Final Result Performing Organization Address [facility] Co de Phone Number [facility] [address] [place] [phone] * (ABNORMAL) Hepatic Function Panel (12/04/2022 10:15 AM EST) Bilirubin, Total 1.0 0.0 - 1.0 mg/dL [facility] Bilirubin, Direct 0.3 0.0 - 0.5 mg/dL [facility] Aspartate Amino Transferase 35 5 - 37 U/L [facility] Alanine Aminotransferase 58(H) 0 - 40 U/L [facility] Total Protein 7.2 6.5 - 8.0 g/dL [facility] Albumin Level 4.2 3.5 - 5.0 g/dL [facility] Alkaline Phosphatase 63 39 - 117 U/L [facility] 12/04/2022 10:1 5 AM EST 12/04/2022 10:15 AM EST [facility] External Provider LAB BLO OD ORDERABLES Final Result [facility] [address] [place], [place] [phone] * (ABNORMAL) CBC auto differential (12/04/2022 10:15 AM EST) White Blood Count 6.9 4.8 - 10.8 X10*3/uL [facility] Red Blood Count 4.93 4.60 - 5.80 X10*6/uL [facility] Hemoglobin 15.0 14.0 - 18.0 g/dl [facility] Hematocrit 44.5 42.0 - 52.0 % [facility] Mean Corpuscular Volume 90.3 80.0 - 98.0 fL [facility] Mean Corpuscular Hemoglobin 30.4 27.0 - 33.0 pg [facility] Mean Corpuscular HGB Conc 33.7 31.0 - 36.0 g/dl [facility] Red Cell Distribution Width 13.4 11.0 - 16.0 % [facility] Platelet Count 218 160 - 400 X10*3/uL [facility] Mean Platelet Volume 10.0 9.4 - 12.4 fL [facility] Neutrophils Percent Auto 34.1(L) 45 - 73 % [facility] Imm Gran Pct Auto 0.4 0.0 - 0.4 % [facility] Lymphocytes Percent Auto 52.2(H) 20 - 40 % [facility] Monocytes Percent Auto 9.0 2 - 11 % [facility] Eosinophils Percent Auto 3.9 0 - 4 % [facility] Basophils Percent Auto 0.4 0 - 2 % [facility] NRBC Pct Auto 0.0 0.0 - 0.2 /100WBC [facility] Neutrophils Absolute Auto 2.3 2.0 - 8.3 x10*3/uL [facility] Imm Gran Abs Auto 0.03 0.00 - 0.03 X10*3/uL [facility] Lymphocytes Absolute Auto 3.6 1.2 - 4.9 X10*3/uL [facility] Monocytes Absolute Auto 0.6 0.1 - 1.2 X10*3/uL [facility] Eosinophils Absolute Auto 0.3 0.0 - 0.4 X10*3/uL [facility] Basophils Absolute Auto 0.0 0.0 - 0.2 X10*3/uL [facility] NRBC Abs Auto 0.000 0.0 - 0.012 X10*3/uL [facility] 12/04/2022 10:1 5 AM EST 12/04/2022 10:15 AM EST [facility] External Provider LAB BLO OD ORDERABLES Final Result Performing Organization Address [facility] de Phone Number [facility] [address] [place] [address] [phone] * POCT Creatinine GFR (12/04/2022 9:49 AM EST) [facility] POCT Creatinine 0.9 0.5 - 1.4 mg/dL [facility] GFR POC >60 [facility] Comment:Chronic Kidney Disea se: Estimated GFR < 60 mL/min/1.70h5Karmgm Kidney Disease: Estimated GFR < 15 mL/min/1.73m2 12/04/2022 9:49 AM EST 12/04/2022 4:06 PM EST Narrative [facility] - 12/04/2022 4:07 PM EST [id number].[email or web address] [facility] Exter nal Provider LAB POINT OF CARE TEST DOCKED DEVICE ORDERABLES Final Result Performing Organization Address [facility] de Phone Number [facility] [address] [place] [address] [phone] * (ABNORMAL) PROTHROMBIN TIME WHOLE BLD POC (12/03/2022 2:54 PM EST) Protime 69.3(H) 11.1 - 13.5 sec [facility] 12/03/2022 2:54 PM EST 12/03/2022 3:30 PM EST Result [facility] External Provider LAB BLO OD ORDERABLES Final Result Performing Organization Address [facility] Phone Number [facility] [address] [place] [address] [phone] * (ABNORMAL) ~PT, ~INR - ANTI COAG CLINIC (12/03/2022 2:54 PM EST) Prothrombin Time INR 5.8(HH) 0.9 - 1.1 [facility] Comment:METER #: [id number] ctor NotifiedINTERNATIONAL NORMALIZED RATIO (INR) REFERENCE RANGES [...] PM EST 12/03/2022 3:30 PM EST Result [facility] External Provider LAB BLO OD ORDERABLES Final Result Performing Organization Address [facility] Co de Phone Number [facility] [address] [place] [address] [phone] * (ABNORMAL) PROTHROMBIN TIME WHOLE BLD POC (11/26/2022 2:46 PM EST) Protime 40.1(H) 11.1 - 13.5 sec [facility] 11/26/2022 2:46 PM EST 11/26/2022 2:47 PM EST Result [facility] External Provider LAB BLO OD ORDERABLES Final Result Performing Organization Address City/[facility]/ZIP Co de Phone Number [facility] [address] [place] [phone] * (ABNORMAL) ~PT, ~INR - ANTI COAG CLINIC (11/26/2022 2:46 PM EST) Prothrombin Time INR 3.3(H) 0.9 - 1.1 [facility] Comment:METER #: [id number] TERNATIONAL NORMALIZED RATIO (INR) REFERENCE RANGES Reference [...] 2:46 PM EST 11/26/2022 2:47 PM EST [facility] External Provider LAB BLO OD ORDERABLES Final Result Performing Organization Address [facility] Co de Phone Number [facility] [address] [place] [phone] * (ABNORMAL) PROTHROMBIN TIME WHOLE BLD POC (11/05/2022 3:33 PM EST) Protime 33.6(H) 11.1 - 13.5 sec [facility] 11/05/2022 3:33 PM EST 11/05/2022 3:35 PM EST [facility] External Provider LAB BLO OD ORDERABLES Final Result Performing Organization Address [facility]/ZIP Co de Phone Number [facility] [address] [place] [phone] * (ABNORMAL) ~PT, ~INR - ANTI COAG CLINIC (11/05/2022 3:33 PM EST) Prothrombin Time INR 2.8(H) 0.9 - 1.1 [facility] Comment:METER #: [id number] TERNATIONAL NORMALIZED RATIO (INR) REFERENCE RANGES Reference [...] 3:33 PM EST 11/05/2022 3:35 PM EST [facility] External Provider LAB BLO OD ORDERABLES Final Result Performing Organization Address [facility] de Phone Number [facility] [address] [place] [address] [phone] * (ABNORMAL) PROTHROMBIN TIME WHOLE BLD POC (10/29/2022 3:11 PM EST) Protime 45.2(H) 11.1 - 13.5 sec [facility] 10/29/2022 3:11 PM EST 10/30/2022 7:55 AM EST [facility] External Provider LAB BLO OD ORDERABLES Final Result Performing Organization Address [facility] de Phone Number [facility] [address] [place] [address] [phone] * (ABNORMAL) ~PT, ~INR - ANTI COAG CLINIC (10/29/2022 3:11 PM EST) Prothrombin Time INR 3.8(H) 0.9 - 1.1 [facility] Comment:METER #: [id number] TERNATIONAL NORMALIZED RATIO (INR) REFERENCE RANGES Reference [...] 3:11 PM EST 10/30/2022 7:55 AM EST [facility] External Provider LAB BLO OD ORDERABLES Final Result [facility] [address] [place] [phone] documented in this encounter Visit Diagnoses Diagnosis Pleural scarring- Primary Pleurisy without mention of effusion or current tuberculosis Abnormal chest CT Nonspecific (abnormal) findings on radiological and other examination of other intrathoracic organs documented in this encounter Care Teams Supervisor Finishing Relationship Specialty Start Date End Date Sancho Yoon MD [address] [place] [address] [phone] PCP - General Internal Medicine 08/16/14 documented as of this encounter
--- OUTSIDE RECORDS SUMMARY | 2025-01-09 17:14 | XMS_ITS ---
Author Organization [facility] Address [address] [place] [address] Care Team Providers Care Hand Striper Name Role Phone Raman Mayberry MD, Sancho Primary Care Provide Joshua Harvey [phone] REASON FOR VISIT Patient presents today for hx hep c Encounters Encounter Location Date Provider Diagnosis [facility] [address] [place] [address] 12/22/2024 Joshua Valdivia PLAN OF TREATMENT Next Appt Details Provider Name:Joshua Valdivia , 04/27/2025 10:20:00 AM, [address], [address], [place], [address],
--- OUTSIDE RECORDS SUMMARY | 2025-01-09 17:14 | XMS_ITS | Encounter Summary ---
Author Organization [employer] Address [address] [facility] 7t [place] [address] Care Team Providers Care Warehouse Logistics Coordinator Name Role Phone Sancho Yoon MD Primary Care Provide r Reason for Visit * Reason Onset Date Comments Med Refill 08/22/2024 Encounter Details Date Type Department Care Team ([facility] st Contact Info) Description 08/22/2024 Telephone [facility] MEDICINE [address] [place], [place] [phone] Sancho Yoon MD [address] [place], [place] [phone] Med Refill Social History Tobacco Use Types [...] immediate release tablet To be sent to: [facility] - [place], [place] - [address] [place] [address] documented in this encounter Plan of Treatment Upcoming Encounters Date Type Department Care Team (Late st Contact Info) Description 01/26/2025 1:15 PM EDT Office Visit [facility] MEDICINE [address] [place] [address] Sancho Yoon MD [address] [place] [address] 03/15/2025 8:00 AM EDT Office Visit [facility] ADULT DENTAL [address] [place] [address] Yi Sanchez documented as of this encounter Visit Diagnoses Not on filedocumented in this encounter Additional Health Concerns Assessment Noted Time PHQ-9 Depression Total Score: 3 03/23/20 23 1:07 PM EDT documented as of this encounter Care Teams Warehouse Logistics Coordinator Relationship Specialty Start Date End Date Sancho Yoon MD [address] [place] [address] PCP - General Internal Medicine 08/16/14 documented as of this encounter
--- OUTSIDE RECORDS SUMMARY | 2025-01-09 17:14 | XMS_ITS | Encounter Summary ---
Author Organization [employer] Address [address] [facility]t [place] [address] Care Team Providers Care Life Science Teacher Name Role Phone Sancho Yoon MD Primary Care Provide r Encounter Details Date Type Department Care Team ([facility] st Contact Info) Description 03/03/2024 Telephone [facility] MEDICINE [address] [place] [address] Sancho Yoon MD [address] [place] [address] Social History Tobacco Use Types Packs/Day Years [...] Result line call [place] Kimber[place] [facility] [place]R 5.2 rechecked with lab and 4.8 Warfarin on hold today Warfarin 5mg tomorrow and then 7.5mg Thursday and 5 mg on Thursday. Recheck Thursday Please update PCP as indicated. documented in this encounter Plan of Treatment Upcoming Encounters Date Type Department Care Team (Late st Contact Info) Description 01/26/2025 1:15 PM EDT Office Visit [facility] MEDICINE [address] [place] [address] Sancho Yoon MD [address] [place] [address] 03/15/2025 8:00 AM EDT Office Visit [facility] ADULT DENTAL [address] [place] [address] Yi Sanchez documented as of this encounter Visit Diagnoses Not on filedocumented in this encounter Additional Health Concerns Assessment Noted Time PHQ-9 Depression Total Score: 3 03/23/20 23 1:07 PM EDT documented as of this encounter Care Teams Life Science Teacher Relationship Specialty Start Date End Date Sancho Yoon MD [address] [place] [phone] PCP - General Internal Medicine 08/16/14 documented as of this encounter
--- OUTSIDE RECORDS SUMMARY | 2025-01-09 17:14 | XMS_ITS | Encounter Summary ---
Author Organization [employer] Address [address] [facility] 7t [place] [address] Care Team Providers Care Sheetfed Press Operator Name Role Phone Sancho Yoon MD Primary Care Provide r Reason for Visit * Reason Onset Date Comments Med Refill 06/27/2024 Encounter Details Date Type Department Care Team ([facility] st Contact Info) Description 06/27/2024 Telephone [facility] MEDICINE [address] [place], [place] [phone] Sancho Yoon MD [address] [place], [place] [phone] Med Refill Social History Tobacco Use Types [...] release tablet To be sent to: [facility] - [place], [place] - [address] [place] [address] documented in this encounter Plan of Treatment Upcoming Encounters Date Type Department Care Team (Late st Contact Info) Description 01/26/2025 1:15 PM EDT Office Visit [facility] MEDICINE [address] [place] [address] Sancho Yoon MD [address] [place] [address] 03/15/2025 8:00 AM EDT Office Visit [facility] ADULT DENTAL [address] [place] [address] Yi Sanchez documented as of this encounter Visit Diagnoses Not on filedocumented in this encounter Additional Health Concerns Assessment Noted Time PHQ-9 Depression Total Score: 3 03/23/20 23 1:07 PM EDT documented as of this encounter Care Teams Sheetfed Press Operator Relationship Specialty Start Date End Date Sancho Yoon MD [address] [place] [address] PCP - General Internal Medicine 08/16/14 documented as of this encounter
--- OUTSIDE RECORDS SUMMARY | 2025-01-09 17:14 | XMS_ITS | Encounter Summary ---
Author Organization [employer] Address [address] [facility] [address] [place] [address] Care Team Providers Care Lcpc Name Role Phone Sancho Yoon MD Primary Care Provide r Encounter Details Date Type Department Care Team (Late st Contact Info) Description 12/28/2024 Orders Only GENERIC EXTERNAL DATA DEPARTMENT [...] 1:15 PM EDT Office Visit [facility] MEDICINE [address] [place] [address] Sancho Yoon MD [address] [place] [address] 03/15/2025 8:00 AM EDT Office Visit [facility] ADULT DENTAL [address] [place] [address] Yi Sanchez documented as of this encounter Procedures Procedure Name Priority Date/Time Associated Diagnosis Comments PROTHROMBIN TIME WHOLE BLD POC Routine 12/28/2024 3:41 PM EST ~PT, ~INR - ANTI COAG CLINIC Routine 12/28/2024 3:41 PM EST documented in this encounter Results * (ABNORMAL) PROTHROMBIN TIME WHOLE BLD POC (12/28/2024 3:41 PM EST) Protime 21.0(H) 11.1 - 13.5 sec [facility] 12/28/2024 3:41 PM EST 12/28/2024 3:43 PM EST us Generic External Data Provider LAB BLOOD ORDERAB LES Final Result [facility] [address] [place] [address] [phone] * (ABNORMAL) ~PT, ~INR - ANTI COAG CLINIC (12/28/2024 3:41 PM EST) Prothrombin Time INR 1.7(H) 0.9 - 1.1 [facility] Comment:METER #: [id number] TERNATIONAL NORMALIZED RATIO (INR) REFERENCE RANGES Reference [...] ORDERAB LES Final Result Performing Organization Address City/State/[facility] Co de Phone Number [facility] [address] [place] [phone] documented in this encounter Visit Diagnoses Not on filedocumented in this encounter Additional Health Concerns Assessment Noted Time PHQ-9 Depression Total Score: 0 09/29/20 24 9:48 AM EST documented as of this encounter Care Teams Lcpc Relationship Specialty Start Date End Date Sancho Yoon MD [address] [place] [phone] PCP - General Internal Medicine 08/16/14 documented as of this encounter
--- OUTSIDE RECORDS SUMMARY | 2025-01-09 17:14 | XMS_ITS | Encounter Summary ---
Author Organization [employer] [facility] Address [address] [facility] 7t [place] [address] Care Team Providers Care Spring Inspector Name Role Phone Sancho Yoon MD Primary Care Provide r Encounter Details Date Type Department Care Team (Latest Contact Info) Description 10/26/2019 Abstract [facility] CONVERSIONS Dental, Provider, DDS Social History Tobacco [...] Office Visit [facility] MEDICINE [address] [place] [address] Sancho Yoon MD [address] [place] [address] 03/15/2025 8:00 AM EDT Office Visit [facility] ADULT DENTAL [address] [place] [address] Yi Sanchez documented as of this encounter Visit Diagnoses Not on filedocumented in this encounter Care Teams Spring Inspector Relationship Specialty Start Date End Date Sancho Yoon MD [address] [place], [place] [phone] PCP - General Internal Medicine 08/16/14 documented as of this encounter
--- OUTSIDE RECORDS SUMMARY | 2025-01-09 17:14 | XMS_ITS | Encounter Summary ---
Author Organization [employer] Address 75 [facility] 7t [place] [address] Care Team Providers Care Emg Technician Name Role Phone Sancho Yoon MD Primary Care Provide r Reason for Visit * Reason Comments Med Refill Encounter Details Date Type Department Care Team ([facility] st Contact Info) Description 10/21/2023 Refill [facility] MEDICINE [address] [place], [place] [phone] Sancho Yoon MD [address] [place] [address] Pure hypercholesterolemia Social History Tobacco Use Types [...] Description 01/26/2025 1:15 PM EDT Office Visit [facility] MEDICINE [address] [place] [address] Sancho Yoon MD [address] [place] [address] 03/15/2025 8:00 AM EDT Office Visit [facility] ADULT DENTAL [address] [place] [address] Yi Sanchez documented as of this encounter Visit Diagnoses Diagnosis Pure hypercholesterolemia documented in this encounter Additional Health Concerns Assessment Noted Time PHQ-9 Depression Total Score: 3 03/23/20 23 1:07 PM EDT documented as of this encounter Care Teams Emg Technician Relationship Specialty Start Date End Date Sancho Yoon MD [address] [place] [address] PCP - General Internal Medicine 08/16/14 documented as of this encounter
--- OUTSIDE RECORDS SUMMARY | 2025-01-09 17:14 | XMS_ITS | Encounter Summary ---
Author Organization [employer] Address [address] [facility] [address] 7[address] [place] [address] Care Team Providers Care Reinforced Concrete Inspector Name Role Phone Sancho Yoon MD Primary Care Provide r Reason for Visit * Reason Onset Date Comments Med Refill 12/14/2024 Encounter Details Date Type Department Care Team ([facility] st Contact Info) Description 12/14/2024 Refill [facility] MED & PEDS [address] [place] [address] 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, RN [address] [place] [address] Other chronic pain Social History Tobacco Use [...] RN - 2024 4:53 PM EST .What CLINICAL SERVICES MANAGER Tier would you like this patient to be? Tier 1 = HIGH RISK, Monthly CLINICAL SERVICES MANAGER visits Tier 2 = MODerate RISK, Q3 Month visits Tier 3 = LOW RISK = Q4-6 month visits documented in this encounter Plan of Treatment Upcoming Encounters Date Type Department Care Team (Late st Contact Info) Description 01/26/2025 1:15 PM EDT Office Visit [facility] MEDICINE [address] [place] [address] Sancho Yoon MD [address] [place] [address] 03/15/2025 8:00 AM EDT Office Visit [facility] ADULT DENTAL [address] [place] [address] Yi Sanchez documented as of this encounter Visit Diagnoses Diagnosis Other chronic pain documented in this encounter Additional Health Concerns Assessment Noted Time PHQ-9 Depression Total Score: 0 09/29/20 24 9:48 AM EST documented as of this encounter Care Teams Reinforced Concrete Inspector Relationship Specialty Start Date End Date Sancho Yoon MD [address] [facility] [place] [address] PCP - General Internal Medicine 08/16/14 documented as of this encounter
--- OUTSIDE RECORDS SUMMARY | 2025-01-09 17:14 | XMS_ITS | Encounter Summary ---
Author Organization [employer] Address 75 [facility] 7t [place] [address] Care Team Providers Care Physical Therapy Assistant Name Role Phone Sancho Yoon MD Primary Care Provide r Reason for Visit * Reason Comments Med Refill Encounter Details Date Type Department Care Team ([facility] st Contact Info) Description 07/02/2024 Refill [facility] MEDICINE [address] [place], [place] [phone] Sancho Yoon MD [address] [place] [address] Mild intermittent asthma without complication Social History [...] 1:15 PM EDT Office Visit [facility] MEDICINE [address] [place] [address] Sancho Yoon MD [address] [place] [address] 03/15/2025 8:00 AM EDT Office Visit [facility] ADULT DENTAL [address] [place] [address] Yi Sanchez documented as of this encounter Visit Diagnoses Diagnosis Mild intermittent asthma without complication documented in this encounter Additional Health Concerns Assessment Noted Time PHQ-9 Depression Total Score: 3 03/23/20 23 1:07 PM EDT documented as of this encounter Care Teams Physical Therapy Assistant Relationship Specialty Start Date End Date Sancho Yoon MD [address] [place] [address] PCP - General Internal Medicine 08/16/14 documented as of this encounter
--- OUTSIDE RECORDS SUMMARY | 2025-01-09 17:15 | XMS_ITS | Clinical Summary ---
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 I contacted them today they told me they had misfiled his referral, the customer account representative of the office told me the [...] 02/12/2024 : 1.70 Normal Colonoscopy: 02/17/2022 Dr. Valdivia was Normal, he recommended 5 yr f/u [...] IVC filter and on warfarin -f at [facility] -from records last INR 03/14/2023 [...] (10/23/2022 9:16 AM EST): Dx initially in [place], on exam ? small inguinal hernia pt [...] since 2000. He was evaluated extensively by cardiopulmonary specialist Dr. Beck who did a hypercoagulable [...] since 2000. He was evaluated extensively by cardiopulmonary specialist Dr. Beck who did a hypercoagulable [...] since 2000. He was evaluated extensively by cardiopulmonary specialist Dr. Beck who did a hypercoagulable work up that was unrevealing, although she believes pt has a hypercoagulable state and needs to be on coumadin life long. Pt continues to follow at the coumadin clinic Last INR was therapeutic. 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 On coumadin since 2000. Evaluated extensively by cardiopulmonary specialist Dr. Beck who did a hypercoagulable [...] PSSP for evaluation and conservative treatment modalities. 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 pt now has a Narcotic contract with us. Pt was referred to [facility] Pain management s/p epidural injection. With excellent [...] with partial results. [facility] modalities. 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 pt now has a Narcotic contract with us. Pt was referred to [facility] Pain management s/p epidural injection. With excellent [...] with partial results. [facility] and conservative treatment modalities. 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 pt now has a Narcotic contract with us. Pt was referred to [facility] Pain management and is already scheduled for [...] with partial results. [facility] and conservative treatment modalities. He [...] Encounters Date Type Department Care Team Description 01/09/2025 Orders Only GENERIC EXTERNAL DATA DEPARTMENT Provider, Generic External Data 12/28/2024 Telephone [facility] MEDICINE [address] [place] [phone] Sancho Yoon MD CRITICAL RESULT CALL; Anticoagulation 12/28/2024 Orders Only GENERIC EXTERNAL DATA DEPARTMENT Provider, Generic External Data 12/21/2024 Telephone [facility] [address] [place] [address] 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 RN 12/20/2024 Telephone [facility] [address] [place] [address] 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, ELISEO 12/16/2024 Refill [facility] [address] [place] [address] Carisa Houston RN Chronic right-sided low back pain with right-sided sciatica (Primary Dx) 12/15/2024 8:40 AM EST Office Visit [facility] [address] [phone] Miesha Schwartz DO COVID-19; Influenza A 12/14/2024 Refill [facility] [address] [place] [address] 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 RN Other chronic pain 12/14/2024 Telephone [facility] [address] [place] [address] Sancho Yoon MD Med Refill 12/07/2024 Orders Only GENERIC EXTERNAL DATA DEPARTMENT Provider, Generic External Data 11/29/2024 Telephone [facility] [address] [facility] [place] [address] Sancho Yoon MD January Recall 11/24/2024 8:40 AM EST Office Visit [facility] [address] [facility] [place] [address] Otilio Del Toro MD Cough in adult patient 11/14/2024 Telephone [facility] [address] [facility] [place] [address] Sancho Yoon MD 11/14/2024 Orders Only GENERIC EXTERNAL DATA DEPARTMENT Provider, Generic External Data 11/11/2024 Refill [facility] MED[facility] [address] [facility] [place] [address] Sancho Yoon MD Other chronic pain; Pure hypercholesterolemia 11/09/2024 Refill [facility] MED[facility] [address] [place] [address] Sancho Yoon MD Presence of inferior vena cava filter 11/04/2024 Refill [facility] [address] [place] [address] Sancho Yoon MD Erectile dysfunction, unspecified erectile dysfunction type 10/27/2024 Refill [facility] [address] [place] [address] Sancho Yoon MD 10/24/2024 Orders Only GENERIC EXTERNAL DATA DEPARTMENT Provider, Generic External Data 10/17/2024 Refill [facility] [address] [place] [address] Sancho Yoon MD Other chronic pain 10/17/2024 Refill [facility] [address] [facility] [place] [address] Sancho Yoon MD Other chronic pain 10/12/2024 Telephone [facility] MEDICINE [address] [place] [address] Sancho Yoon MD 10/10/2024 Orders Only GENERIC EXTERNAL DATA DEPARTMENT Provider, Generic External Data from Last 3 Months Immunizations Name Administration [...] Description 01/26/2025 1:15 PM EDT Office Visit [facility] MED[facility] [address] [place] [address] Sacnho Yoon MD [address] [place] [address] 03/15/2025 8:00 AM EDT Office Visit [facility] ADULT DENTAL [address] [place] [address] Yi Sanchez Health Maintenance Due Date Last [...] [facility] Routine 01/09/2025 3:01 PM EST PROTHROMBIN TIME WHOLE BLD POC Routine 12/28/2024 [...] COAG CLINIC Routine 10/10/2024 10:20 AM EST LIPID PANEL, STANDARD Routine 10/05/2024 10:25 AM EST Pure hypercholesterolemia PROPHYLAXIS - ADULT Routine 09/07/2024 8 :00 AM EDT Dental calculus Dental plaque BITEWINGS - 4 RADIOGRAPHIC IMAGES Routine 09/07/2024 8:00 AM EDT PERIODIC ORAL EVALUATION - ESTABLISHED PATIENT Routine 09/07/2024 8:00 AM EDT HEMOGLOBIN A1C Routine 01/18/2024 11:13 AM EST Elevated glucose INTRAORAL - COMPLETE SERIES OF RADIOGRAPHIC IMAGES Routine 07/22/2023 3:00 PM EDT Periodontal disease Dental calculus HM COLONOSCOPY Routine 02/17/2022 from Last 3 Months or Most Recently Relevant to Health Maintenance Results * (ABNORMAL) PROTHROMBIN TIME WHOLE BLD POC (01/09/2025 3:01 PM EST) Only the most recent of6 resultswithin the time period is included. Protime 43.5(H) 11.1 - 13.5 sec [facility] 01/09/2025 3:01 PM EST 01/09/2025 3:03 PM EST us Generic External Data Provider LAB BLOOD ORDERAB LES Final Result Performing Organization Address City/State/[facility] Co de Phone Number [facility] [address] [place] [phone] * (ABNORMAL) ~PT, ~INR - ANTI COAG CLINIC (01/09/2025 3:01 PM EST) Only the most recent of6 resultswithin the time period is included. Prothrombin Time INR 3.6(H) 0.9 - 1.1 [facility] Comment:METER #: [id number] TERNATIONAL NORMALIZED RATIO (INR) REFERENCE RANGES Reference [...] ORDERAB LES Final Result Performing Organization Address [facility] Co de Phone Number [facility] [address] [place] [phone] * Influenza B (ID NOW Rapid Molecular) (12/15/2024 9:00 AM EST) Only the most recent of2 resultswithin the time period is included. Influenza B Negative Negative, Indeterminate [facility] Swab 12/15/2024 9:00 AM EST Miesha Schwartz DO POINT OF CARE TEST ENTER/MAMADOU T ORDERABLES Final Result Performing Organization Address [facility] Phone Number [facility] [address] [place] [phone] * (ABNORMAL) Influenza A (ID NOW Rapid Molecular) (12/15/2024 9:00 AM EST) Only the most recent of2 resultswithin the time period is included. Influenza A Positive( A) Negative, Indeterminate [facility] Swab 12/15/2024 9:00 AM EST Miesha Schwartz DO POINT OF CARE TEST ENTER/MAMADOU T ORDERABLES Final Result Performing Organization Address [facility] Co de Phone Number [facility] [address] [place] [phone] * (ABNORMAL) POCT Rapid COVID Ag (12/15/2024 9:00 AM EST) Only the most recent of2 resultswithin the time period is included. Rapid COVID Ag Positive [facility] Swab 12/15/2024 9:00 AM EST us Miesha Schwartz DO POINT OF CARE TEST ENTER/MAMADOU T ORDERABLES Final Result Performing Organization Address City/[facility]/ZIP Co de Phone Number [facility] [address] [place] [phone] * (ABNORMAL) Lipid Panel, Standard (10/05/2024 10:25 AM EST) Triglycerides 179(H) <150 mg/dL [facility] Comment:Desirable Triglyceri de: less than 150 mg/dLBorderline High Triglyceride 150-199 mg/dLHigh Triglyceride: 200-499 mg/dLVery High Triglyceride: greater than or equal to 5OO mg/dL Cholesterol 171 <200 mg/dL [facility] Comment:Desirable Cholestero l: less than 200 mg/dLBorderline High Cholesterol: 200-239 mg/dLHigh Cholesterol: greater than 239 mg/dL LDL Cholesterol Calculated 94 <100 mg/dL [facility] Comment:Desirable LDL: less than 100 mg/dLNear Optimal/Above Optimal LDL: 110- 129 mg/dLBorderline High LDL: 130-159 mg/dLHigh LDL: 160-189 mg/dLVery High LDL: greater than or equal to 190 mg/dL HDL Cholesterol 42 >40 mg/dL [facility] Comment:Desirable HDL: great er than 40 mg/dL Note: This HDL assay may give artificially low results in patients with liver disease. Blood Venous blood specimen / Unknown 10/05/2024 10:25 AM EST 10/05/2024 11:28 AM EST us Sancho Mayberry MD LAB BLOOD ORDERABLES Final Result Performing Organization Address City/[facility]/ZIP Co de Phone Number [facility] [address] [place] [phone] * (ABNORMAL) Hemoglobin A1c (01/18/2024 11:13 AM EST) Hemoglobin A1c 6.1(H) <6.0 % [facility] Comment:Hemoglobin A1C Refer ence Range Adults: 4.8 - 6.0 % Non diabetic: < 6.0 % Goal: < 7.0 %Additional Action Suggested: > 8.0 %Note: Hemoglobin A1c results are invalid for patients with abnormal amounts of HbF. Blood transfusions may impact the HbA1c concentration in the patient sample. Estimated Average Glucose 128 mg/dL [facility] Comment:eAG = Estimated ave rage glucose which is %A1C expressed asaverage glucose, using the formula of the G6D-RwdafjiDknniro Glucose study (ADAG), Diabetes Care, Vol.31,#8,Jun. 2007 Blood Venous blood specimen / Unknown 01/18/2024 11:13 AM EST 01/18/2024 1:14 PM EST Sancho Mayberry MD LAB BLOOD ORDERABLES Final Result [facility] [address] [place] [phone] * Colonoscopy (02/17/2022) [facility] Colonoscopy performed Historical Provider HEALTH MAINTENANCE Edited Result - Final from Last 3 Months or Most Recently Relevant to Health Maintenance Insurance [facility] DUAL COMPLETE [facility] STANDARD Care Teams Skeins Yarn Examiner Relationship Specialty Start Date End Date Sancho Yoon MD [address] [place] [address] PCP - General Internal Medicine 08/16/14
--- OUTSIDE RECORDS SUMMARY | 2025-01-09 17:15 | XMS_ITS | Encounter Summary ---
Author Organization [employer] Address 75 [facility] 7t [place] [address] Care Team Providers Care Putaway Driver Name Role Phone Sancho Yoon MD Primary Care Provide r Reason for Visit * Reason Comments Med Refill Encounter Details Date Type Department Care Team ([facility] st Contact Info) Description 11/04/2024 Refill [facility] MEDICINE [address] [place], [place] [phone] Sancho Yoon MD [address] [place], [place] [phone] Erectile dysfunction, unspecified erectile dysfunction type Social [...] Visit [facility] MEDICINE [address] [place] [address] Sancho Yoon MD [address] [place] [address] 03/15/2025 8:00 AM EDT Office Visit [facility] ADULT DENTAL [address] [place] [address] Yi Sanchez documented as of this encounter Visit Diagnoses Diagnosis Erectile dysfunction, unspecified erectile dysfunction type documented in this encounter Additional Health Concerns Assessment Noted Time PHQ-9 Depression Total Score: 0 09/29/20 24 9:48 AM EST documented as of this encounter Care Teams Putaway Driver Relationship Specialty Start Date End Date Sancho Yoon MD [address] [place] [address] PCP - General Internal Medicine 08/16/14 documented as of this encounter
--- OUTSIDE RECORDS SUMMARY | 2025-01-09 17:15 | XMS_ITS | Encounter Summary ---
Author Organization [employer] Address [address] [facility] [address] [place] [address] Care Team Providers Care Bottler Helper Name Role Phone Sancho Yoon MD Primary Care Provide r Reason for Visit * Reason Comments Med Refill Encounter Details Date Type Department Care Team ([facility] st Contact Info) Description 10/17/2024 Refill [facility] MED & PEDS [address] [place], [place] [phone] Sancho Yoon MD [address] [place] [address] Other chronic pain Social History Tobacco Use [...] 01/26/2025 1:15 PM EDT Office Visit [facility] MEDICINE [address] [place] [phone] Sancho Yoon MD [address] [place] [address] 03/15/2025 8:00 AM EDT Office Visit [facility] ADULT DENTAL [address] [place] [address] Yi Sanchez documented as of this encounter Visit Diagnoses Diagnosis Other chronic pain documented in this encounter Additional Health Concerns Assessment Noted Time PHQ-9 Depression Total Score: 0 09/29/20 24 9:48 AM EST documented as of this encounter Care Teams Bottler Helper Relationship Specialty Start Date End Date Sancho Yoon MD [address] [place] [phone] PCP - General Internal Medicine 08/16/14 documented as of this encounter
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
--- OUTSIDE RECORDS SUMMARY | 2025-01-09 17:15 | XMS_ITS | Encounter Summary ---
Author Organization [employer] Address [address] [place] [address] Care Team Providers Care Patient Navigator Name Role Phone Sancho Yoon MD Primary Care Provide r Encounter Details Date Type Department Care Team ([facility] st Contact Info) Description 01/16/2023 Telephone [facility] MEDICINE [address] [place] [address] Sancho Yoon MD [address] [place] [address] Social History Tobacco Use Types Packs/Day Years [...] Team Provider with plan. Melody GOMES @ [phone] if needed. documented in this encounter Plan of Treatment Upcoming Encounters Date Type Department Care Team (Late st Contact Info) Description 01/26/2025 1:15 PM EDT Office Visit [facility] MEDICINE [address] [place] [address] Sancho Yoon MD [address] [place] [address] 03/15/2025 8:00 AM EDT Office Visit [facility] ADULT DENTAL [address] [place] [address] Yi Sanchez documented as of this encounter Visit Diagnoses Not on filedocumented in this encounter Care Teams Patient Navigator Relationship Specialty Start Date End Date Sancho Yoon MD [address] [place] [address] PCP - General Internal Medicine 08/16/14 documented as of this encounter
--- OUTSIDE RECORDS SUMMARY | 2025-01-09 17:15 | XMS_ITS | Encounter Summary ---
Author Organization [employer] Address [address] [place] [address] Care Team Providers Care Business Programmer Name Role Phone Sancho Yoon MD Primary Care Provide r Encounter Details Date Type Department Care Team ([facility] st Contact Info) Description 11/14/2024 Telephone [facility] [address] [place], [place] [phone] Sancho Yoon MD [address] [place] [address] Social History Tobacco Use Types Packs/Day Years [...] 1:15 PM EDT Office Visit [facility] MEDICINE [address] [place] [address] Sancho Yoon MD [address] [place] [address] 03/15/2025 8:00 AM EDT Office Visit [facility] ADULT DENTAL [address] [place] [address] Yi Sanchez documented as of this encounter Visit Diagnoses Not on filedocumented in this encounter Additional Health Concerns Assessment Noted Time PHQ-9 Depression Total Score: 0 09/29/20 24 9:48 AM EST documented as of this encounter Care Teams Business Programmer Relationship Specialty Start Date End Date Sancho Yoon MD [address] [place] [address] PCP - General Internal Medicine 08/16/14 documented as of this encounter
== END 2025-01-09 15:22 | disposition home or self-care (01) ==
LOC: HO.ACS 14:54
PROVIDERS: PCP Internal Medicine; Visit Provider Internal Medicine
DX: Z79.01 Long term (current) use of anticoagulants (principal)

== ENCOUNTER → 2025-01-09 14:54 | Outpatient (BNVA) | payer OTHER, SELFPAY | PROVIDERS: PCP Internal Medicine; Visit Provider Internal Medicine | DX: I26.99 Other pulmonary embolism without acute cor pulmonale (principal); I82.409 Acute embolism and thrombosis of unspecified deep veins of unspecified lower extremity; Z79.01 Long term (current) use of anticoagulants; Z51.81 Encounter for therapeutic drug level monitoring | CPT/HCPCS: 85610; 99211 ==

== ENCOUNTER 2025-01-19 15:06 | Outpatient (AMB) | payer OTHER, SELFPAY ==
[2025-01-19 15:15] LABS: Prothrombin Time Whole Bld POC 36.9 sec (11.1-13.5); ~PT, ~INR - Anti Coag Clinic 3.1 (0.9-1.1)
--- NOTE | 2025-01-19 15:20 | MHC.OFFVISCO ---
Intake Intake Visit Reasons: Anticoagulation Allergies No Known Drug Allergies [NO KNOWN DRUG ALLERGIES] Allergy (Mild, Verified 01/19/25 15:09) NONE Medication List - Last Reconciled 01/19/25 by Yi Briggs RN acetaminophen ER 650 mg PO Q8H PRN albuterol sulfate 90 mcg/actuation (ProAir HFA) 2 puffs inhalation Q4-6H PRN fluoride (sodium) 1.1% (PreviDent 5000 Booster Plus) dental BID fluticasone propionate 110 mcg/actuation (Flovent HFA) 1 puff PO BID hydrocortisone acetate (Anusol-HC) 25 mg AL BID lisinopril 10 mg PO DAILY 30 days meclizine 25 mg PO DAILY PRN oxycodone 5 mg PO Q8H PRN rosuvastatin 5 mg PO BEDTIME sildenafil (Viagra) 100 mg PO DAILY PRN tamsulosin 0.4 mg PO DAILY 90 days tizanidine 2 mg PO Q6H PRN warfarin 7.5 mg See Protocol PO DAILY@1800 Nursing Note INR: 3.1almos therapeutic range 2.5-3.0 Medications and supplements reviewed No changes in health, diet, medications, or supplements, Denies any signs and symptoms of bleeding or bruising or clotting. Bleeding, bruising, clotting discussed Nutritional guidance given - make sure to eat weekly greens Dose: 5mg Sun Tue Thur/ 7.5mg x 4 days F/U INR: 3 weeks Patient verbalizes understanding of instructions given Anti-Coag Initial Assessment Social Hx Patient Tobacco Use Status: Never used Tobacco alcohol intake: former Alcohol intake frequency: does not drink Coding Level of Care Code Est Patient Level 1 Diagnoses Current use of anticoagulant therapy Z79.01 Results AMB INR Fingerstick AMB INR Fingerstick 3.1 Last Edit by Yi Briggs RN on 01/19/25 15:14 MANUAL ENTRY Assessment & Plan Assessment & Plan (1) Current use of anticoagulant therapy: Code(s): 

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
--- OUTSIDE RECORDS SUMMARY | 2025-01-19 18:38 | XMS_ITS ---
Author Organization [facility] Address [address] [place] [address] Care Team Providers Care Social Director Name Role Phone Raman Mayberry MD, Sancho Primary Care Provide Joshua Harvey [phone] REASON FOR VISIT Patient presents today for hx hep c Encounters Encounter Location Date Provider Diagnosis [facility] [address] [place] [address] 12/22/2024 Joshua Valdivia Plan Of Treatment Next Appt Details Provider Name:Joshua Valdivia , 04/27/2025 10:20:00 AM, [address], [address], [place], [address], Progress Notes * VENANCIO LARRYDOB:[birth year] (69 yo M)Acc No.[id number]:12/22/2024 Progress Notes Patient:?VENANCIO LARRY Provider:?Joshua Valdivia MD :1955???Age:69 Y???Sex:Male David e:12/22/2024 [address], [place], [place] Pcp:Sancho sandhu MD Subjective: * Chief Complaints: * ???1. Patient presents today for hx hep c. * Medical History:? Objective: * Vitals:? Assessment: Plan: * Treatment: * * The named appointment provid er may or may not be the originator of this progress note, and it is not deemed complete until electronically signed by the appointment provider. Sign off status: Pending * Provider:?Joshua Valdivia MD Date:? 025 Generated for Jayla pollock/Megha/Matt on:?01/19/2025 06:38 PM EST
--- OUTSIDE RECORDS SUMMARY | 2025-01-19 18:38 | XMS_ITS ---
Author Organization [facility] Address [address] [place] [address] Care Team Providers Care Corn Popper Name Role Phone Raman Mayberry MD, Sancho Primary Care Provide Joshua Harvey [phone] REASON FOR VISIT RESCHEDULED APPT TOMORROW Encounters Encounter Location Date Provider Diagnosis [facility] [address] [place] [address] 12/21/2024 Joshua Valdivia Plan Of Treatment Next Appt Details Provider Name:Joshua Valdivia , 04/27/2025 10:20:00 AM, [address], [address], [place], [address], Progress Notes * VENANCIO LARRYDOB:[birth year] (69 yo M)Acc No.[id number]:12/21/2024 Patient:?VENANCIO LARRY :1955???Age:69 Y???Sex:Male Address:[address], [place] [address] * true * Date:? Generated for Brigettei maris/Megha/eTransmitting on:?01/19/2025 06:38 PM EST
== END 2025-01-19 15:22 | disposition home or self-care (01) ==
LOC: HO.ACS 15:06
PROVIDERS: PCP Internal Medicine; Visit Provider Internal Medicine
DX: Z79.01 Long term (current) use of anticoagulants (principal)

== ENCOUNTER → 2025-01-19 15:06 | Outpatient (BNVA) | payer OTHER, SELFPAY | PROVIDERS: PCP Internal Medicine; Visit Provider Internal Medicine | DX: I26.99 Other pulmonary embolism without acute cor pulmonale (principal); I82.409 Acute embolism and thrombosis of unspecified deep veins of unspecified lower extremity; Z79.01 Long term (current) use of anticoagulants; Z51.81 Encounter for therapeutic drug level monitoring | CPT/HCPCS: 85610; 99211 ==

== ENCOUNTER 2025-01-26 13:21 | Outpatient (REF) | payer OTHER, SELFPAY ==
--- NOTE | ~2025-01-26 | XR_ITS ---
EXAMINATION: XR FOOT 3 OR MORE VIEWS RIGHT HISTORY: right foot pain COMPARISON: There are no prior studies available for comparison. FINDINGS: Four views of the right foot are submitted. Osseous mineralization is normal. There is no fracture or dislocation. The joint spaces are preserved. There is a small plantar calcaneal spur. There are vascular calcifications. XR/XR foot RT min 3V IMPRESSION: Small plantar calcaneal spur. Otherwise unremarkable examination of the right foot. Electronically signed by: Joshua Cooper MD 01/26/2025 02:04 PM EDT
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
--- OUTSIDE RECORDS SUMMARY | 2025-01-26 16:55 | XMS_ITS ---
Author Organization [facility] Address [address] [place] [address] Care Team Providers Care Power System Dispatcher Name Role Phone Raman Mayberry MD, Sancho Primary Care Provide r Joshua Hernandez Unavailable [phone] Allergies No Known Allergies REASON FOR VISIT [...] Encounter Location Date Provider Diagnosis [facility] [address] [place] [address] 12/22/2023 Joshua Valdivia History of hepatitis C [...] again for allowing me to proceed in [place]'s care. I shall continue to keep you [...] again for allowing me to proceed in [place]'s care. I shall continue to keep you advised of his progress. 12/22/2023 History of adenomatous polyp of colon (ICD-10 - Z86.010) Repeat colonoscopy in 2026 Overall, Clnit appears very well. He does not show [...] Name:Joshua Valdivia , 04/27/2025 10:20:00 AM, [address] [facility], [place] [address], [place], [address], Progress Notes * ELVIRA SUAREZ CLINTDOB:[birth year] (68 yo M)Acc No.[id number]:12/22/2023 Progress Notes Patient:?ELVIRA SUAREZ CLINT Provider:?Joshua Valdivia MD :1955???Age:68 Y???Sex:Male David e:12/22/2023 Address:[address] [place], [place] [id number] Pcp:Sancho sandhu MD Subjective: * Chief Complaints: [...] elastography* sched for 01/14/24 at 8:00 am [facility] ultrasound dept 2nd floorfasting 8 hrs prior * 3.?History of adenomatous polyp of colon? Notes: Repeat colonoscopy in 2026?? * Procedure Codes:?3017F COLOR ECTAL CA SCREEN DOC FCF3216S TOBACCO NON-AASZL9731 BP SCR NOT PRFRM REC REASON NOS * Preventive Medicine:? ??Counseling:?Care goal follow-up plan:?Above Normal BMI Follow-up?Giving encouragement to exercise,?BMI management provided?Yes.? * Follow Up:?1 Year * * Sign off status: Completed true * Provider:?Joshua Valdivia MD Date:? 024 Generated for Jayla pollock/Megha/Arnieitting on:?01/26/2025 12:32 PM EDT History and Physical Notes * HPI (History [...]
--- OUTSIDE RECORDS SUMMARY | 2025-01-26 16:55 | XMS_ITS ---
Author Organization [facility] Address [address] [place] [address] Care Team Providers Care Ambulance Driver Name Role Phone Raman Mayberry MD, Sancho Primary Care Provide Joshua Harvey [phone] REASON FOR VISIT Patient presents today for hx hep c Encounters Encounter Location Date Provider Diagnosis [facility] [address] [place] [address] 12/22/2024 Joshua Valdivia Plan Of Treatment Next Appt Details Provider Name:Joshua Valdivia , 04/27/2025 10:20:00 AM, [address], [address], [place], [address], Progress Notes * VENANCIO LARRYDOB:[birth year] (69 yo M)Acc No.[id number]:12/22/2024 Progress Notes Patient:?VENANCIO LARRY Provider:?Joshua Valdivia MD :1955???Age:69 Y???Sex:Male David e:12/22/2024 [address], [place], [place] Pcp:Sancho sandhu MD Subjective: * Chief Complaints: [...] MD Date:? 025 Generated for Jayla pollock/Megha/Matt on:?01/26/2025 12:32 PM EDT
--- OUTSIDE RECORDS SUMMARY | 2025-01-26 16:55 | XMS_ITS ---
Author Organization [facility] Address [address] [place] [address] Care Team Providers Care Feller Operator Name Role Phone Raman Mayberry MD, Sancho Primary Care Provide Joshua Harvey [phone] REASON FOR VISIT RESCHEDULED APPT TOMORROW Encounters Encounter Location Date Provider Diagnosis [facility] [address] [place] [address] 12/21/2024 Joshua Valdivia Plan Of Treatment Next Appt Details Provider Name:Joshua Valdivia , 04/27/2025 10:20:00 AM, [address], [address], [place], [address], Progress Notes * VENANCIO LARRYDOB:[birth year] (69 yo M)Acc No.[id number]:12/21/2024 Patient:?VENANCIO LARRY :1955???Age:69 Y???Sex:Male Address[address], [place] [id number] * true * Date:? Generated for Printi maris/Megha/eTransmitting on:?01/26/2025 04:55 PM EDT
== END 2025-01-26 13:22 | disposition home or self-care (01) ==
LOC: HO.HHCX 13:21
PROVIDERS: Visit Provider Internal Medicine
DX: M79.671 Pain in right foot (principal)
CPT/HCPCS: 73630

== ENCOUNTER → 2025-01-26 13:22 | Outpatient (BNV) | payer OTHER, SELFPAY | PROVIDERS: Visit Provider Radiology Diagnostic Radiology | DX: M77.31 Calcaneal spur, right foot (principal) | CPT/HCPCS: 73630 ==

== ENCOUNTER 2025-02-09 15:00 | Outpatient (AMB) | payer OTHER, SELFPAY ==
[2025-02-09 15:06] LABS: Prothrombin Time Whole Bld POC 32.2 sec (11.1-13.5); ~PT, ~INR - Anti Coag Clinic 2.7 (0.9-1.1)
--- NOTE | 2025-02-09 15:07 | MHC.OFFVISCO ---
Intake Intake Visit Reasons: Anticoagulation Allergies No Known Drug Allergies [NO KNOWN DRUG ALLERGIES] Allergy (Mild, Verified 02/09/25 15:01) NONE Medication List - Last Reconciled 02/09/25 by Zainab Rodriguez RN acetaminophen ER 650 mg PO Q8H PRN albuterol sulfate 90 mcg/actuation (ProAir HFA) 2 puffs inhalation Q4-6H PRN fluoride (sodium) 1.1% (PreviDent 5000 Booster Plus) dental BID fluticasone propionate 110 mcg/actuation (Flovent HFA) 1 puff PO BID hydrocortisone acetate (Anusol-HC) 25 mg HI BID lisinopril 10 mg PO DAILY 30 days meclizine 25 mg PO DAILY PRN oxycodone 5 mg PO Q8H PRN rosuvastatin 5 mg PO BEDTIME sildenafil (Viagra) 100 mg PO DAILY PRN tamsulosin 0.4 mg PO DAILY 90 days tizanidine 2 mg PO Q6H PRN warfarin 7.5 mg See Protocol PO DAILY@1800 Nursing Note INR: 2.7 in therapeutic range of 2.5-3.0 Medications and supplements reviewed No changes in health, diet, medications, or supplements, Denies any signs and symptoms of bleeding or bruising or clotting. Bleeding, bruising, clotting discussed Nutritional guidance given Dose: 7.5mg X 4 days and 5mg X 3 days (//) F/U INR: 3 weeks Patient verbalizes understanding of instructions given Anti-Coag Initial Assessment Social Hx Patient Tobacco Use Status: Never used Tobacco alcohol intake: former Alcohol intake frequency: does not drink Coding Level of Care Code Est Patient Level 1 Diagnoses Current use of anticoagulant therapy Z79.01 Results AMB INR Fingerstick AMB INR Fingerstick 2.7 Last Edit by Zainab Rodriguez RN on 02/09/25 15:07 INTERFACE DELAY Assessment & Plan Assessment & Plan (1) Current use of anticoagulant therapy: Code(s): Z79.01 - buttermaker (current) use of anticoagulants Category: Medical
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
--- OUTSIDE RECORDS SUMMARY | 2025-02-09 18:41 | XMS_ITS ---
Author Organization [facility] Address [address] [place] [address] Care Team Providers Care Sound Art Instructor Name Role Phone Raman Mayberry MD, Sancho Primary Care Provide Joshua Harvey [phone] REASON FOR VISIT RESCHEDULED APPT TOMORROW Encounters Encounter Location Date Provider Diagnosis [facility] [address] [place] [address] 12/21/2024 Joshua Valdivia Plan Of Treatment Next Appt Details Provider Name:Joshua Valdivia , 04/27/2025 10:20:00 AM, [address], [address], [place], [address], Progress Notes * VENANCIO LARRYDOB:[birth year] (69 yo M)Acc No.[id number]:12/21/2024 Patient:?VENANCIO LARRY :1955???Age:69 Y???Sex:Male Address:[address], [place] [address] * true * Date:? Generated for Printi maris/Megha/eTransmitting on:?02/09/2025 06:40 PM EDT
--- OUTSIDE RECORDS SUMMARY | 2025-02-09 18:41 | XMS_ITS ---
Author Organization [facility] Address [address] [place] [address] Care Team Providers Care Value Analysis Coordinator Name Role Phone Raman Mayberry MD, Sancho Primary Care Provide r Joshua Hernandez Unavailable [phone] Allergies No Known Allergies REASON FOR VISIT [...] Encounter Location Date Provider Diagnosis [facility] [address] [place] [address] 12/22/2023 Joshua Valdivia History of hepatitis C [...] again for allowing me to proceed in [place]'s care. I shall continue to keep you [...] again for allowing me to proceed in [place]'s care. I shall continue to keep you [...] Name:Joshua Valdivia , 04/27/2025 10:20:00 AM, [address] [facility] [address], [place], [address], Progress Notes * ELVIRA SUAREZ CLINTDOB:[birth year] (68 yo M)Acc No.[id number]:12/22/2023 Progress Notes Patient:?ELVIRA SUAREZ CLINT Provider:?Joshua Valdivia MD :1955???Age:68 Y???Sex:Male David e:12/22/2023 Address:[address] [place], [place] [id number] Pcp:Sancho sandhu MD Subjective: * Chief Complaints: [...] elastography* sched for 01/14/24 at 8:00 am [facility] [place]pt 2nd floorfasting 8 hrs prior * 3.?History of adenomatous polyp of colon? Notes: Repeat colonoscopy in 2026?? * Procedure Codes:?3017F COLOR ECTAL CA SCREEN DOC [id number] TOBACCO NON-PMTUT8794 BP SCR NOT PRFRM REC REASON NOS * Preventive Medicine:? ??Counseling:?Care goal follow-up plan:?Above Normal BMI Follow-up?Giving encouragement to exercise,?BMI management provided?Yes.? * Follow Up:?1 Year * * Sign off status: Completed true * Provider:?Joshua Valdivia MD Date:? 024 Generated for Jayla pollock/Megha/Arnieitting on:?02/09/2025 06:40 PM EDT History and Physical Notes * [...]
--- OUTSIDE RECORDS SUMMARY | 2025-02-09 18:41 | XMS_ITS ---
Author Organization [facility] Address [address] [place] [address] Care Team Providers Care Tapper Helper Name Role Phone Raman Mayberry MD, Sancho Primary Care Provide Joshua Harvey [phone] REASON FOR VISIT Patient presents today for hx hep c Encounters Encounter Location Date Provider Diagnosis [facility] [address] [place] [address] 12/22/2024 Joshua Valdivia Plan Of Treatment Next Appt Details Provider Name:Joshua Valdivia , 04/27/2025 10:20:00 AM, [address], [address], [place], [address], Progress Notes * VENANCIO LARRYDOB:[birth year] (69 yo M)Acc No.[id number]:12/22/2024 Progress Notes Patient:?VENANCIO LARRY Provider:?Joshua Valdivia MD :1955???Age:69 Y???Sex:Male David e:12/22/2024 Address[address], [place], [place] Pcp:Sancho sandhu MD Subjective: * Chief Complaints: [...] MD Date:? 025 Generated for Jayla pollock/Megha/Matt on:?02/09/2025 06:40 PM EDT
== END 2025-02-09 15:12 | disposition home or self-care (01) ==
LOC: HO.ACS 15:00
PROVIDERS: PCP Internal Medicine; Visit Provider Internal Medicine Medical Oncology
DX: Z79.01 Long term (current) use of anticoagulants (principal)

== ENCOUNTER → 2025-02-09 15:00 | Outpatient (BNVA) | payer OTHER, SELFPAY | PROVIDERS: PCP Internal Medicine; Visit Provider Internal Medicine Medical Oncology | DX: I26.99 Other pulmonary embolism without acute cor pulmonale (principal); I82.409 Acute embolism and thrombosis of unspecified deep veins of unspecified lower extremity; Z79.01 Long term (current) use of anticoagulants; Z51.81 Encounter for therapeutic drug level monitoring | CPT/HCPCS: 85610; 99211 ==

== ENCOUNTER 2025-03-02 14:23 | Outpatient (AMB) | payer OTHER, SELFPAY ==
[2025-03-02 14:32] LABS: Prothrombin Time Whole Bld POC 49.5 sec (11.1-13.5); ~PT, ~INR - Anti Coag Clinic 4.1 (0.9-1.1)
--- NOTE | 2025-03-02 14:41 | MHC.OFFVISCO ---
Intake Intake Visit Reasons: Anticoagulation Allergies No Known Drug Allergies [NO KNOWN DRUG ALLERGIES] Allergy (Mild, Verified 03/02/25 14:24) NONE Medication List - Last Reconciled 03/02/25 by Yi Briggs RN acetaminophen ER 650 mg PO Q8H PRN albuterol sulfate 90 mcg/actuation (ProAir HFA) 2 puffs inhalation Q4-6H PRN fluoride (sodium) 1.1% (PreviDent 5000 Booster Plus) dental BID fluticasone propionate 110 mcg/actuation (Flovent HFA) 1 puff PO BID fluticasone propionate 50 mcg/actuation sprays intranasal hydrocortisone acetate (Anusol-HC) 25 mg CO BID lisinopril 10 mg PO DAILY 30 days loratadine 10 mg PO DAILY meclizine 25 mg PO DAILY PRN oxycodone 5 mg PO Q8H PRN rosuvastatin 5 mg PO BEDTIME sildenafil (Viagra) 100 mg PO DAILY PRN tamsulosin 0.4 mg PO DAILY 90 days tizanidine 2 mg PO Q6H PRN warfarin 7.5 mg See Protocol PO DAILY@1800 Nursing Note INR 4.1 out of therapeutic range Medications and supplements reviewed Patient status: Well- stated he has eaten more foods that could raise his INR recently Medications or supplements: no changes Diet: good Denies any signs and symptoms of bleeding or clotting or unusual bruising Bleeding, bruising, clotting discussed Nutritional guidance given: review food list weekly Dose: hold today's dose then resume usual dose F/U INR Date : 11 days ?? Patient verbalizing understanding of instructions given. Anti-Coag Initial Assessment Social Hx Patient Tobacco Use Status: Never used Tobacco alcohol intake: former Alcohol intake frequency: does not drink Coding Level of Care Code Est Patient Level 1 Diagnoses Current use of anticoagulant therapy Z79.01 Results AMB INR Fingerstick AMB INR Fingerstick 4.1 Last Edit by Yi Briggs RN on 03/02/25 14:34 manual entry Assessment & Plan Assessment & Plan (1) Current use of anticoagulant therapy: Code(s): Z79.01 - termination clerk (current) use of anticoagulants Category: Medical Medications: New gabapentin PO
--- OUTSIDE RECORDS SUMMARY | 2025-03-02 17:23 | XMS_ITS | Encounter Summary ---
Author Organization [employer] Address [address] [facility] 7t [place] [address] Care Team Providers Care Restaurant Mgr Name Role Phone Sancho Yoon MD Primary Care Provide r Reason for Visit * Reason Onset Date Comments Med Refill 01/10/2025 Encounter Details Date Type Department Care Team ([facility] st Contact Info) Description 01/10/2025 Telephone [facility] MEDICINE [address] [place], [place] [phone] Sancho Yoon MD [address] [place], [place] [phone] Med Refill Social History Tobacco Use Types [...] encounter Miscellaneous Notes * Telephone Encounter - Wilmer Feliz - 01/10/2025 9:26 AM EST TC from pt requesting medication refill. Medications needing refill : oxyCODONE (Roxicodone) 5 MG immediate release tablet To be sent to: [facility] documented in this encounter Plan of Treatment Upcoming Encounters Date Type Department Care Team (Late st Contact Info) Description 03/15/2025 8:00 AM EDT Office Visit [facility] ADULT DENTAL [address] [place] [address] Yi Sanchez 05/09/2025 1:15 PM EDT Office Visit [facility] MEDICINE [address] [place] [address] Sancho Yoon MD [address] [place] [address] documented as of this encounter Visit Diagnoses Not on filedocumented in this encounter Additional Health Concerns Assessment Noted Time PHQ-9 Depression Total Score: 0 09/29/20 9:48 AM EST documented as of this encounter Care Teams Restaurant Mgr Relationship Specialty Start Date End Date Sancho Yoon MD [address] [place] [address] PCP - General Internal Medicine 08/16/14 documented as of this encounter
--- OUTSIDE RECORDS SUMMARY | 2025-03-02 17:23 | XMS_ITS ---
Author Organization [facility] Address [address] [place] [address] Care Team Providers Care Welding Pantograph Operator Name Role Phone Raman Mayberry MD, Sancho Primary Care Provide r Joshua Hernandez Unavailable [phone] Allergies No Known Allergies REASON FOR VISIT [...] Encounter Location Date Provider Diagnosis [facility] [address] [place] [address] 12/22/2023 Joshua Valdivia History of hepatitis C [...] again for allowing me to proceed in [place]'s care. I shall continue to keep you [...] again for allowing me to proceed in [place]'s care. I shall continue to keep you [...] Name:Joshua Valdivia , 04/27/2025 10:20:00 AM, [address] [facility], [address] [address], [place], [address], Progress Notes * ELVIRA SUAREZ CLINTDOB:[birth year] (68 yo M)Acc No.[id number]:12/22/2023 Progress Notes Patient:?ELVIRA SUAREZ CLINT Provider:?Joshua Valdivia MD :1955???Age:68 Y???Sex:Male David e:12/22/2023 Address:[address] [place], [place] [address] Pcp:Sancho sandhu MD Subjective: * Chief Complaints: [...] elastography* sched for 01/14/24 [place] 8:00 am [facility] [place] 2nd floorfasting 8 hrs prior * 3.?History of adenomatous polyp of colon? Notes: Repeat colonoscopy in 2026?? * Procedure Codes:?3017F COLOR ECTAL CA SCREEN DOC [id number] TOBACCO NON-[id number] BP SCR NOT PRFRM REC REASON NOS * Preventive Medicine:? ??Counseling:?Care goal follow-up plan:?Above Normal BMI Follow-up?Giving encouragement to exercise,?BMI management provided?Yes.? * Follow Up:?1 Year * * Sign off status: Completed true * Provider:?Joshua Valdivia MD Date:? 024 Generated for aJyla pollock/Megha/Arnieitting on:?03/02/2025 05:23 PM EDT History and Physical Notes * [...]
--- OUTSIDE RECORDS SUMMARY | 2025-03-02 17:24 | XMS_ITS | Encounter Summary ---
Author Organization [employer] Address [address] 7t [place] [address] Care Team Providers Care Jewel Hole Gauger Name Role Phone Sancho Yoon MD Primary Care Provide r Encounter Details Date Type Department Care Team ([facility] st Contact Info) Description 09/14/2023 Telephone [facility] MED[facility]INE [address] [place] [address] Sancho Yoon MD [address] [place] [address] Social History Tobacco Use Types Packs/Day Years [...] Description 03/15/2025 8:00 AM EDT Office Visit [facility] ADULT DENTAL [address] [place] [address] Yi Sanchez 05/09/2025 1:15 PM EDT Office Visit [facility] MEDICINE [address] [place] [address] Sancho Yoon MD [address] [place] [address] documented as of this encounter Visit Diagnoses Not on filedocumented in this encounter Additional Health Concerns Assessment Noted Time PHQ-9 Depression Total Score: 3 03/23/20 23 1:07 PM EDT documented as of this encounter Care Teams Jewel Hole Gauger Relationship Specialty Start Date End Date Sancho Yoon MD [address] [place] [address] PCP - General Internal Medicine 08/16/14 documented as of this encounter
--- OUTSIDE RECORDS SUMMARY | 2025-03-02 17:24 | XMS_ITS | Encounter Summary ---
Author Organization [employer] Address [address] [facility] 7t [place] [address] Care Team Providers Care Paid Internship Name Role Phone Sancho Yoon MD Primary Care Provide r Reason for Visit * Reason Onset Date Comments Med Refill 06/27/2024 Encounter Details Date Type Department Care Team ([facility] st Contact Info) Description 06/27/2024 Telephone [facility] MEDICINE [address] [place], [place] [phone] Sancho Yoon MD [address] [place], [place] [phone] Med Refill Social History Tobacco Use Types [...] immediate release tablet To be sent to: [facility] - [place], [place] - [address] [place] [address] documented in this encounter Plan of Treatment Upcoming Encounters Date Type Department Care Team (Late st Contact Info) Description 03/15/2025 8:00 AM EDT Office Visit [facility] ADULT DENTAL [address] [place] [address] Yi Sanchez 05/09/2025 1:15 PM EDT Office Visit [facility] MEDICINE [address] [place] [address] Sancho Yoon MD [address] [place] [address] documented as of this encounter Visit Diagnoses Not on filedocumented in this encounter Additional Health Concerns Assessment Noted Time PHQ-9 Depression Total Score: 3 03/23/20 23 1:07 PM EDT documented as of this encounter Care Teams Paid Internship Relationship Specialty Start Date End Date Sancho Yoon MD [address] [place] [address] PCP - General Internal Medicine 08/16/14 documented as of this encounter
--- OUTSIDE RECORDS SUMMARY | 2025-03-02 17:24 | XMS_ITS | Encounter Summary ---
Author Organization [employer] Address [address] [facility] 7t [place] [address] Care Team Providers Care Engineering Model Maker Name Role Phone Sanhco Yoon MD Primary Care Provide r Reason for Visit * Reason Onset Date Comments Med Refill 07/25/2024 Encounter Details Date Type Department Care Team ([facility] st Contact Info) Description 07/25/2024 Telephone [facility] MEDICINE [address] [place], [place] [phone] Sancho Yoon MD [address] [place], [place] [phone] Med Refill Social History Tobacco Use Types [...] immediate release tablet To be sent to: [facility] - [place], [place] - [address] [place] [address] documented in this encounter Plan of Treatment Upcoming Encounters Date Type Department Care Team (Late st Contact Info) Description 03/15/2025 8:00 AM EDT Office Visit [facility] ADULT DENTAL [address] [place] [address] Yi Sanchez 05/09/2025 1:15 PM EDT Office Visit [facility] MEDICINE [address] [place] [address] Sancho Yoon MD [address] [place] [address] documented as of this encounter Visit Diagnoses Not on filedocumented in this encounter Additional Health Concerns Assessment Noted Time PHQ-9 Depression Total Score: 3 03/23/20 23 1:07 PM EDT documented as of this encounter Care Teams Engineering Model Maker Relationship Specialty Start Date End Date Sancho Yoon MD [address] [place] [address] PCP - General Internal Medicine 08/16/14 documented as of this encounter
--- OUTSIDE RECORDS SUMMARY | 2025-03-02 17:24 | XMS_ITS | Encounter Summary ---
Author Organization [employer] Address [address] [facility] 7t [place] [address] Care Team Providers Care Program Director/Music Director Name Role Phone Sancho Yoon MD Primary Care Provide r Reason for Visit * Reason Onset Date Comments Appointment Request 04/05/2024 Encounter Details Date Type Department Care Team ([facility] Contact Info) Description 04/05/2024 Telephone [facility] MEDICINE [address] [place] [address] Sancho Yoon MD [address] [place], [place] [phone] Appointment Request Social History Tobacco Use Types [...] to know if there is any upcoming LANDING SIGNAL OFFICER visits to be scheduled. Please contact pt at [phone]. documented in this encounter Plan of Treatment Upcoming Encounters Date Type Department Care Team (Late st Contact Info) Description 03/15/2025 8:00 AM EDT Office Visit [facility] ADULT DENTAL [address] [place] [address] Yi Sanchez 05/09/2025 1:15 PM EDT Office Visit [facility] MEDICINE [address] [place] [address] Sancho Yoon MD [address] [place] [address] documented as of this encounter Visit Diagnoses Not on filedocumented in this encounter Additional Health Concerns Assessment Noted Time PHQ-9 Depression Total Score: 3 03/23/20 23 1:07 PM EDT documented as of this encounter Care Teams Program Director/Music Director Relationship Specialty Start Date End Date Sancho Yoon MD [address] [place] [address] PCP - General Internal Medicine 08/16/14 documented as of this encounter
--- OUTSIDE RECORDS SUMMARY | 2025-03-02 17:24 | XMS_ITS | Encounter Summary ---
Author Organization [employer] Address [address] [facility] [address] [place] [address] Care Team Providers Care Cinder Block Mason Name Role Phone Sancho Yoon MD Primary Care Provide r Encounter Details Date Type Department Care Team ([facility] st Contact Info) Description 11/14/2024 Telephone [facility] [address] [place], [place] [phone] Sancho Yoon MD [address] [place] [address] Social History Tobacco Use Types Packs/Day Years [...] Description 03/15/2025 8:00 AM EDT Office Visit [facility] ADULT DENTAL [address] [place] [address] Yi Sanchez 05/09/2025 1:15 PM EDT Office Visit [facility] MEDICINE [address] [place] [address] Sancho Yoon MD [address] [place] [address] documented as of this encounter Visit Diagnoses Not on filedocumented in this encounter Additional Health Concerns Assessment Noted Time PHQ-9 Depression Total Score: 0 09/29/20 24 9:48 AM EST documented as of this encounter Care Teams Cinder Block Mason Relationship Specialty Start Date End Date Sancho Yoon MD [address] [place] [address] PCP - General Internal Medicine 08/16/14 documented as of this encounter
--- OUTSIDE RECORDS SUMMARY | 2025-03-02 17:24 | XMS_ITS | Encounter Summary ---
Author Organization [employer] Address [address] 7t [place] [address] Care Team Providers Care Optical Element Coater Name Role Phone Sancho Yoon MD Primary Care Provide r Encounter Details Date Type Department Care Team ([facility] st Contact Info) Description 09/17/2023 Telephone [facility] MEDICINE [address] [place] [address] Sancho Yoon MD [address] [place] [address] Social History Tobacco Use Types Packs/Day Years [...] Result line call received from Eileen with [facility] Anticoag. INR today 1.2 same as on Thursday. Low since Ortho injection hold. Warfarin today 10mg Tomorrow warfarin 10mg Thursday and Thursday 7.5 Recheck Thursday Please call Patient if Lovenox is indicated. Update PCP now please. documented in this encounter Plan of Treatment Upcoming Encounters Date Type Department Care Team (Late st Contact Info) Description 03/15/2025 8:00 AM EDT Office Visit [facility] ADULT DENTAL [address] [place] [address] Yi Sanchez 05/09/2025 1:15 PM EDT Office Visit [facility] MEDICINE [address] [place] [address] Sancho Yoon MD [address] [place] [address] documented as of this encounter Visit Diagnoses Not on filedocumented in this encounter Additional Health Concerns Assessment Noted Time PHQ-9 Depression Total Score: 3 03/23/20 23 1:07 PM EDT documented as of this encounter Care Teams Optical Element Coater Relationship Specialty Start Date End Date Sancho Yoon MD [address] [place] [address] PCP - General Internal Medicine 08/16/14 documented as of this encounter
--- OUTSIDE RECORDS SUMMARY | 2025-03-02 17:24 | XMS_ITS | Encounter Summary ---
Author Organization [employer] Address [address] [facility] [address] [place] [address] Care Team Providers Care Elevator Operator Service Name Role Phone Sancho Yoon MD Primary Care Provide r Reason for Visit * Reason Comments Med Refill Encounter Details Date Type Department Care Team ([facility] st Contact Info) Description 02/22/2025 Refill [facility] [address] [place], [place] [phone] Sancho Yoon MD [address] [place] [address] Other chronic pain Social History Tobacco Use [...] Description 03/15/2025 8:00 AM EDT Office Visit [facility] ADULT DENTAL [address] [place] [address] Yi Sanchez 05/09/2025 1:15 PM EDT Office Visit [facility] MEDICINE [address] [place] [address] Sancho Yoon MD [address] [place] [address] documented as of this encounter Visit Diagnoses Diagnosis Other chronic pain documented in this encounter Additional Health Concerns Assessment Noted Time PHQ-9 Depression Total Score: 0 09/29/20 24 9:48 AM EST documented as of this encounter Care Teams Elevator Operator Service Relationship Specialty Start Date End Date Sancho Yoon MD [address] [place] [address] PCP - General Internal Medicine 08/16/14 documented as of this encounter
--- OUTSIDE RECORDS SUMMARY | 2025-03-02 17:24 | XMS_ITS | Encounter Summary ---
Author Organization [employer] Address [address] [place] [address] Care Team Providers Care Cloth Printing Inspector Name Role Phone Sancho Yoon MD Primary Care Provide r Reason for Visit * Reason Comments Med Refill Encounter Details Date Type Department Care Team ([facility] st Contact Info) Description 11/18/2023 Refill [facility] [address] [place], [place] [phone] Chad Foley MD 230 [place], [place] [phone] Social History Tobacco Use Types Packs/Day Years [...] 03/15/2025 8:00 AM EDT Office Visit [facility] ADULT DENTAL [address] [place] [address] Yi Sanchez 05/09/2025 1:15 PM EDT Office Visit [facility] MEDICINE [address] [place] [address] Sancho Yoon MD [address] [place] [address] documented as of this encounter Visit Diagnoses Not on filedocumented in this encounter Additional Health Concerns Assessment Noted Time PHQ-9 Depression Total Score: 3 03/23/20 23 1:07 PM EDT documented as of this encounter Care Teams Cloth Printing Inspector Relationship Specialty Start Date End Date Sancho Yoon MD [address] [place] [address] PCP - General Internal Medicine 08/16/14 documented as of this encounter
--- OUTSIDE RECORDS SUMMARY | 2025-03-02 17:24 | XMS_ITS | Encounter Summary ---
Author Organization [employer] Address [address] 7t [place] [address] Care Team Providers Care Nurses' Registry Director Name Role Phone Sancho Yoon MD Primary Care Provide r Reason for Visit * Reason Comments Med Refill Encounter Details Date Type Department Care Team ([facility] st Contact Info) Description 10/17/2024 Refill [facility] MED & PEDS [address] [place], [place] [phone] Sancho Yoon MD [address] [place] [address] Other chronic pain Social History Tobacco Use [...] Description 03/15/2025 8:00 AM EDT Office Visit [facility] ADULT DENTAL [address] [place] [address] Yi Sanchez 05/09/2025 1:15 PM EDT Office Visit [facility] MEDICINE [address] [place] [address] Sancho Yoon MD [address] [place] [address] documented as of this encounter Visit Diagnoses Diagnosis Other chronic pain documented in this encounter Additional Health Concerns Assessment Noted Time PHQ-9 Depression Total Score: 0 09/29/20 9:48 AM EST documented as of this encounter Care Teams Nurses' Registry Director Relationship Specialty Start Date End Date Sancho Yoon MD [address] [place] [address] PCP - General Internal Medicine 08/16/14 documented as of this encounter
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
--- OUTSIDE RECORDS SUMMARY | 2025-03-02 17:24 | XMS_ITS | Encounter Summary ---
Author Organization [email or web address] Address [address] [address] 7t [place] [address] Care Team Providers Care Tool And Die Maker Apprentice Name Role Phone Sancho Yoon MD Primary Care Provide r Reason for Visit * Reason Comments Med Refill Encounter Details Date Type Department Care Team ([facility] st Contact Info) Description 01/24/2024 Refill [facility] [address] [place], [place] [phone] Sancho Yoon MD [address] [place] [address] Social History Tobacco Use Types Packs/Day Years [...] Description 03/15/2025 8:00 AM EDT Office Visit [facility] ADULT DENT[facility] [address] [place] [address] Yi Sanchez 05/09/2025 1:15 PM EDT Office Visit [facility] [address] [place] [address] Sancho Yoon MD [address] [place] [address] documented as of this encounter Visit Diagnoses Not on filedocumented in this encounter Additional Health Concerns Assessment Noted Time PHQ-9 Depression Total Score: 3 03/23/20 23 1:07 PM EDT documented as of this encounter Care Teams Tool And Die Maker Apprentice Relationship Specialty Start Date End Date Sancho Yoon MD [address] [place] [address] PCP - General Internal Medicine 08/16/14 documented as of this encounter
--- OUTSIDE RECORDS SUMMARY | 2025-03-02 17:24 | XMS_ITS | Encounter Summary ---
Author Organization [employer] [facility] Address [address] [facility] 7t [place] [address] Care Team Providers Care Credit Balance Specialist Name Role Phone Sancho Yoon MD Primary Care Provide r Encounter Details Date Type Department Care Team (Late st Contact Info) Description 07/28/2023 Abstract [facility] ADULT DENTAL [address] [place] [address] Mildred Duran [address] [place] [address] Social History Tobacco Use Types Packs/Day Years [...] 03/15/2025 8:00 AM EDT Office Visit [facility] ADULT DENTAL [address] [place] [address] Yi Sanchez 05/09/2025 1:15 PM EDT Office Visit [facility] MEDICINE [address] [place] [address] Sancho Yoon MD [address] [place] [address] documented as of this encounter Visit Diagnoses Not on filedocumented in this encounter Additional Health Concerns Assessment Noted Time PHQ-9 Depression Total Score: 3 03/23/20 23 1:07 PM EDT documented as of this encounter Care Teams Credit Balance Specialist Relationship Specialty Start Date End Date Sancho Yoon MD [address] [place] [address] PCP - General Internal Medicine 08/16/14 documented as of this encounter
--- OUTSIDE RECORDS SUMMARY | 2025-03-02 17:24 | XMS_ITS ---
Author Organization [facility] Address [address] [place] [address] Care Team Providers Care Manager Integrity Name Role Phone Raman Mayberry MD, Sancho Primary Care Provide Joshua Harvey [phone] REASON FOR VISIT RESCHEDULED APPT TOMORROW Encounters Encounter Location Date Provider Diagnosis [facility] [address] [place] [address] 12/21/2024 Joshua Valdivia Plan Of Treatment Next Appt Details Provider Name:Joshua Valdivia , 04/27/2025 10:20:00 AM, [address], [address], [place], [address], Progress Notes * VENANCIO LARRYDOB:[birth year] (69 yo M)Acc No.[id number]:12/21/2024 Patient:?VENANCIO LARRY :1955???Age:69 Y???Sex:Male Address:[address], [place] [address] * true * Date:? Generated for Printi maris/Megha/eTransmitting on:?03/02/2025 05:23 PM EDT
--- OUTSIDE RECORDS SUMMARY | 2025-03-02 17:24 | XMS_ITS | Encounter Summary ---
Author Organization [employer] Address [address] [facility] 7t [place] [address] Care Team Providers Care Graphite Mill Operator Name Role Phone Sancho Yoon MD Primary Care Provide r Reason for Visit * Reason Comments Med Refill Encounter Details Date Type Department Care Team ([facility] st Contact Info) Description 05/02/2024 Refill [facility] [address] [place], [place] [phone] Sancho Yoon MD [address] [place] [address] Other chronic pain Social History Tobacco Use [...] Description 03/15/2025 8:00 AM EDT Office Visit [facility] ADULT DENTAL [address] [place] [address] Yi Sanchez 05/09/2025 1:15 PM EDT Office Visit [facility] [address] [place] [address] Sancho Yoon MD [address] [place] [address] documented as of this encounter Visit Diagnoses Diagnosis Other chronic pain documented in this encounter Additional Health Concerns Assessment Noted Time PHQ-9 Depression Total Score: 3 03/23/20 23 1:07 PM EDT documented as of this encounter Care Teams Graphite Mill Operator Relationship Specialty Start Date End Date Sancho Yoon MD [address] [place] [address] PCP - General Internal Medicine 08/16/14 documented as of this encounter
--- OUTSIDE RECORDS SUMMARY | 2025-03-02 17:24 | XMS_ITS | Encounter Summary ---
Author Organization [employer] Address [address] [facility] 7t [place] [address] Care Team Providers Care Fuel Retrofitting Technician Name Role Phone Sancho Yoon MD Primary Care Provide r Reason for Visit * Reason Comments Med Refill Encounter Details Date Type Department Care Team ([facility] st Contact Info) Description 07/02/2024 Refill [facility] [address] [place], [place] [phone] Sancho Yoon MD [address] [place] [address] Mild intermittent asthma without complication Social History [...] Description 03/15/2025 8:00 AM EDT Office Visit [facility] ADULT DENTAL [address] [place] [address] Yi Sanchez 05/09/2025 1:15 PM EDT Office Visit [facility] [address] [place] [address] Sancho Yoon MD [address] [place] [address] documented as of this encounter Visit Diagnoses Diagnosis Mild intermittent asthma without complication documented in this encounter Additional Health Concerns Assessment Noted Time PHQ-9 Depression Total Score: 3 03/23/20 23 1:07 PM EDT documented as of this encounter Care Teams Fuel Retrofitting Technician Relationship Specialty Start Date End Date Sancho Yoon MD [address] [place] [address] PCP - General Internal Medicine 08/16/14 documented as of this encounter
--- OUTSIDE RECORDS SUMMARY | 2025-03-02 17:24 | XMS_ITS | Encounter Summary ---
Author Organization [employer] Address [address] 7t [place] [address] Care Team Providers Care Senior Graduate Advisor Name Role Phone Sancho Yoon MD Primary Care Provide r Encounter Details Date Type Department Care Team (Late st Contact Info) Description 03/02/2025 Orders Only GENERIC EXTERNAL DATA DEPARTMENT Provider, [...] 8:00 AM EDT Office Visit [facility] ADULT DENTAL [address] [place] [address] Yi Sanchez 05/09/2025 1:15 PM EDT Office Visit [facility] MEDICINE [address] [place] [address] Sancho Yoon MD [address] [place] [address] documented as of this encounter Procedures Procedure Name Priority Date/Time Associated Diagnosis Comments PROTHROMBIN TIME WHOLE BLD POC Routine 03/02/2025 2:31 PM EDT ~PT, ~INR - ANTI COAG CLINIC Routine 03/02/2025 2:31 PM EDT documented in this encounter Results * (ABNORMAL) PROTHROMBIN TIME WHOLE BLD POC (03/02/2025 2:31 PM EDT) Protime 49.5(H) 11.1 - 13.5 sec [facility] 03/02/2025 2:31 PM EDT 03/02/2025 2:32 PM EDT us Generic External Data Provider LAB BLOOD ORDERAB LES Final Result [facility] [address] [place] [phone] * (ABNORMAL) ~PT, ~INR - ANTI COAG CLINIC (03/02/2025 2:31 PM EDT) Prothrombin Time INR 4.1(H) 0.9 - 1.1 [facility] Comment:METER #: [id number] TERNATIONAL NORMALIZED RATIO (INR) REFERENCE RANGES Reference RangeFor patients not on anticoagulant therapy: 0.9 - 1.1INR ranges for oral anticoagulanttherapy:For prevention and treatment of venous thrombosis and pulmonary embolism: 2.0 - 3.0For acute myocardial infarction with aspirin therapy: 2.0 - 3.0For acute myocardial infarction without aspirin therapy: 3.0 - 4.0For patients with mechanical prosthetic heart valves: 2.5 - 3.5 03/02/2025 2:31 PM EDT 03/02/2025 2:32 PM EDT us Generic External Data Provider LAB BLOOD ORDERAB LES Final Result [facility] [address] [place] [phone] documented in this encounter Visit Diagnoses Not on filedocumented in this encounter Additional Health Concerns Assessment Noted Time PHQ-9 Depression Total Score: 0 09/29/20 24 9:48 AM EST documented as of this encounter Care Teams Senior Graduate Advisor Relationship Specialty Start Date End Date Sancho Yoon MD [address] [place] [phone] PCP - General Internal Medicine 08/16/14 documented as of this encounter
--- OUTSIDE RECORDS SUMMARY | 2025-03-02 17:24 | XMS_ITS | Encounter Summary ---
Author Organization [employer] Address [address] [facility] 7t [place] [address] Care Team Providers Care Flight Engineer Helicopter Name Role Phone Sancho Yoon MD Primary Care Provide r Reason for Visit * Reason Onset Date Comments Medication Question 02/27/2025 Encounter Details Date Type Department Care Team ([facility] st Contact Info) Description 02/27/2025 Refill [facility] [address] [place], [place] [phone] Sancho Yoon MD [address] [place], [place] [phone] Benign prostatic hyperplasia with nocturia Social History Tobacco Use Types Packs/Day Years [...] as of this encounter Miscellaneous Notes * Addendum Note - Gayla Curtis RN - 02/27/2025 3:12 PM EDTAddended by: GAYLA CURTIS on: 02/27/2025 03:12 PM Modules accepted: Orders * Telephone Encounter - Gayla Curtis RN - 02/27/2025 3:07 PM EDT Incoming call from Sergio at [facility] who stated that the pt was only to follow up with urology as needed now and confirmed that PCP is to take over prescribing tamsulosin 0.4mg. * Telephone Encounter - Gayla Curtis RN - 02/27/2025 1:09 PM EDT Called [facility] to confirm, left voicemail for nurses. Awaiting call back. * Telephone Encounter - Kalee De La Garza - 02/27/2025 11:41 AM EDT Patient walked in requesting new medication: Tamsulosin Cap 0.4mg - per Patient specialist (Urologist) advised Patient to ask PCP to prescribe medication. documented in this encounter Plan of Treatment Upcoming Encounters Date Type Department Care Team (Late st Contact Info) Description 03/15/2025 8:00 AM EDT Office Visit [facility] ADULT DENTAL [address] [place] [address] Yi Sanchez 05/09/2025 1:15 PM EDT Office Visit [facility] MEDICINE [address] [place] [address] Sancho Yoon MD [address] [place] [address] documented as of this encounter Visit Diagnoses Diagnosis Benign prostatic hyperplasia with nocturia documented in this encounter Additional Health Concerns Assessment Noted Time PHQ-9 Depression Total Score: 0 09/29/20 24 9:48 AM EST documented as of this encounter Care Teams Flight Engineer Helicopter Relationship Specialty Start Date End Date Sancho Yoon MD [address] [place] [address] PCP - General Internal Medicine 08/16/14 documented as of this encounter
--- OUTSIDE RECORDS SUMMARY | 2025-03-02 17:24 | XMS_ITS | Encounter Summary ---
Author Organization [employer] Address [address] [facility] 7t [place] [address] Care Team Providers Care Tennis Player Name Role Phone Sancho Yoon MD Primary Care Provide r Encounter Details Date Type Department Care Team ([facility] st Contact Info) Description 01/16/2023 Telephone [facility] MEDIC[facility] [address] [place] [address] Sancho Yoon MD [address] [place] [address] Social History Tobacco Use Types Packs/Day Years [...] Team Provider with plan. Melody GOMES @ [phone] if needed. documented in this encounter Plan of Treatment Upcoming Encounters Date Type Department Care Team (Late st Contact Info) Description 03/15/2025 8:00 AM EDT Office Visit [facility] ADULT DENTAL [address] [place] [address] Yi Sanchez 05/09/2025 1:15 PM EDT Office Visit [facility] MEDICINE [address] [place] [address] Sancho Yoon MD [address] [place] [address] documented as of this encounter Visit Diagnoses Not on filedocumented in this encounter Care Teams Tennis Player Relationship Specialty Start Date End Date Sancho Yoon MD [address] [place] [address] PCP - General Internal Medicine 08/16/14 documented as of this encounter
--- OUTSIDE RECORDS SUMMARY | 2025-03-02 17:24 | XMS_ITS | Encounter Summary ---
Author Organization [employer] Address [address] [address] 7t [place] [address] Care Team Providers Care Shirt Marker Name Role Phone Sancho Yoon MD Primary Care Provide r Encounter Details Date Type Department Care Team ([facility] st Contact Info) Description 03/03/2024 Telephone [facility] MEDICINE [address] [place] [address] Sancho Yoon MD [address] [place] [address] Social History Tobacco Use Types Packs/Day Years [...] Result line call received from Kimberley at [facility] anticoag INR 5.2 rechecked with lab and 4.8 Warfarin on hold today Warfarin 5mg tomorrow and then 7.5mg Thursday and 5 mg on Thursday. Recheck Thursday Please update PCP as indicated. documented in this encounter Plan of Treatment Upcoming Encounters Date Type Department Care Team (Late st Contact Info) Description 03/15/2025 8:00 AM EDT Office Visit [facility] ADULT DENTAL [address] [place] [address] Yi Sanchez 05/09/2025 1:15 PM EDT Office Visit [facility] MEDICINE [address] [place] [address] Sancho Yoon MD [address] [place] [address] documented as of this encounter Visit Diagnoses Not on filedocumented in this encounter Additional Health Concerns Assessment Noted Time PHQ-9 Depression Total Score: 3 03/23/20 23 1:07 PM EDT documented as of this encounter Care Teams Shirt Marker Relationship Specialty Start Date End Date Sancho Yoon MD [address] [place] [address] PCP - General Internal Medicine 08/16/14 documented as of this encounter
--- OUTSIDE RECORDS SUMMARY | 2025-03-02 17:24 | XMS_ITS | Encounter Summary ---
Author Organization [employer] Address [address] [facility] 7t [place] [address] Care Team Providers Care Warehouse Receiving Clerk Name Role Phone Sancho Yoon MD Primary Care Provide r Reason for Visit * Reason Onset Date Comments New Med Request 09/01/2023 Encounter Details Date Type Department Care Team ([facility] st Contact Info) Description 09/01/2023 Telephone [facility] [address] [place] [address] Sancho Yoon MD [address] [place], [place] [phone] New Med Request Social History Tobacco Use [...] 09/08/2023 8:54 AM EDT Received call from [facility] regarding INR, spoke to Yi. [...] procedure on 09/08/2023. Any questions contact pt. Yakut speaker documented in this encounter Plan of Treatment Upcoming Encounters Date Type Department Care Team (Late st Contact Info) Description 03/15/2025 8:00 AM EDT Office Visit [facility] [address] [place] [address] Yi Sanchez 05/09/2025 1:15 PM EDT Office Visit [facility] [address] [place] [address] Sancho Yoon MD [address] [place] [address] documented as of this encounter Visit Diagnoses Not on filedocumented in this encounter Additional Health Concerns Assessment Noted Time PHQ-9 Depression Total Score: 3 03/23/20 23 1:07 PM EDT documented as of this encounter Care Teams Warehouse Receiving Clerk Relationship Specialty Start Date End Date Sancho Yoon MD [address] [place] [address] PCP - General Internal Medicine 08/16/14 documented as of this encounter
--- OUTSIDE RECORDS SUMMARY | 2025-03-02 17:24 | XMS_ITS | Encounter Summary ---
Author Organization [employer] Address [address] [facility] 7t [place] [address] Care Team Providers Care Supervisor Ordnance Truck Installation Name Role Phone Sancho Yoon MD Primary Care Provide r Reason for Visit * Reason Comments Med Refill Encounter Details Date Type Department Care Team ([facility] Contact Info) Description 08/19/2023 Refill [facility] [address] [place], [place] [phone] Sancho Yoon MD [address] [place] [address] Social History Tobacco Use Types Packs/Day Years [...] 8:00 AM EDT Office Visit [facility] ADULT DENTAL [address] [place] [address] Yi Sanchez 05/09/2025 1:15 PM EDT Office Visit [facility] MEDICINE [address] [place] [address] Sancho Yoon MD [address] [place] [address] documented as of this encounter Visit Diagnoses Not on filedocumented in this encounter Additional Health Concerns Assessment Noted Time PHQ-9 Depression Total Score: 3 03/23/20 23 1:07 PM EDT documented as of this encounter Care Teams Supervisor Ordnance Truck Installation Relationship Specialty Start Date End Date Sancho Yoon MD [address] [place] [address] PCP - General Internal Medicine 08/16/14 documented as of this encounter
--- OUTSIDE RECORDS SUMMARY | 2025-03-02 17:24 | XMS_ITS | Encounter Summary ---
Author Organization [employer] [facility] Address [address] [facility] 7t [place] [address] Care Team Providers Care Forensic Analyst Name Role Phone Sancho Yoon MD Primary Care Provide r Encounter Details Date Type Department Care Team (Latest Contact Info) Description 04/16/2021 Abstract [facility] Dental, Provider, DDS Social History [...] Care Team ( st Contact Info) Description 03/15/2025 8:00 AM EDT Office Visit [facility] ADULT DENTAL [address] [place] [address] Yi Sanchez 05/09/2025 1:15 PM EDT Office Visit [facility] [address] [place] [address] Sancho Yoon MD [address] [place], [place] [phone] documented as of this encounter Visit Diagnoses Not on filedocumented in this encounter Care Teams Forensic Analyst Relationship Specialty Start Date End Date Sancho Yoon MD [address] [place] [phone] PCP - General Internal Medicine 08/16/14 documented as of this encounter
--- OUTSIDE RECORDS SUMMARY | 2025-03-02 17:24 | XMS_ITS | Encounter Summary ---
Author Organization [facility] Address [address] [facility] 7t [place] [address] Care Team Providers Care Patient Case Manager Name Role Phone Sancho Yoon MD Primary Care Provide r Encounter Details Date Type Department Care Team (Latest Contact Info) Description 10/26/2019 Abstract [facility] Dental, Provider, DDS Social [...] Description 03/15/2025 8:00 AM EDT Office Visit [facility] ADULT DENTAL [address] [place] [address] Yi Sanchez 05/09/2025 1:15 PM EDT Office Visit [facility] MEDICINE [address] [place] [address] Sancho Yoon MD [address] [place] [address] documented as of this encounter Visit Diagnoses Not on filedocumented in this encounter Care Teams Patient Case Manager Relationship Specialty Start Date End Date Sancho Yoon MD [address] [place] [phone] PCP - General Internal Medicine 08/16/14 documented as of this encounter
--- OUTSIDE RECORDS SUMMARY | 2025-03-02 17:24 | XMS_ITS | Encounter Summary ---
Author Organization [employer] Address [address] [facility] [address] [place] [address] Care Team Providers Care Brigadier Name Role Phone Sancho Yoon MD Primary Care Provide r Reason for Visit * Reason Onset Date Comments Med Refill 08/22/2024 Encounter Details Date Type Department Care Team ([facility] st Contact Info) Description 08/22/2024 Telephone [facility] [address] [place], [place] [phone] Sancho Yoon MD [address] [place], [place] [phone] Med Refill Social History Tobacco Use Types [...] immediate release tablet To be sent to: [facility] - [place], [place] - [address] [place] [address] documented in this encounter Plan of Treatment Upcoming Encounters Date Type Department Care Team (Late st Contact Info) Description 03/15/2025 8:00 AM EDT Office Visit [facility] [address] [place] [address] Yi Sanchez 05/09/2025 1:15 PM EDT Office Visit [facility] [address] [place] [address] Sancho Yoon MD [address] [place] [address] documented as of this encounter Visit Diagnoses Not on filedocumented in this encounter Additional Health Concerns Assessment Noted Time PHQ-9 Depression Total Score: 3 03/23/20 23 1:07 PM EDT documented as of this encounter Care Teams Brigadier Relationship Specialty Start Date End Date Sancho Yoon MD [address] [place] [address] PCP - General Internal Medicine 08/16/14 documented as of this encounter
--- OUTSIDE RECORDS SUMMARY | 2025-03-02 17:24 | XMS_ITS | Clinical Summary ---
Author Organization [employer] Address [address] [facility] [address] [place] [address] Care Team Providers Care Kiss Setter Hand Name Role Phone Sancho Yoon MD Primary Care Provide r Allergies No known active allergies Medications naloxone (Narcan) 4 mg/0.1 mL nasal spray Administer 0.1 mL into affected nostril(s). 021 Active gabapentin (Neurontin) 300 MG capsuleIndications:Chr onic [...] and at bedtime for dizziness. 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 84 tablet 025 03/22 Active acetaminophen (Tylenol 8 Hour) 650 MG ER tablet TAKE 1 TABLET BY MOUTH EVERY 8 HOURS NEEDED FOR MILD PAIN. DO NOT BREAK, CRUSH, DISSOLVE OR CHEW. 30 tablet 1 025 Active rosuvastatin (Crestor) 5 MG tabletIndications:Pure hypercholesterolemia TAKE 1 TABLET BY MOUTH AT BEDTIME 90 tablet 025 Active tamsulosin (Flomax) 0.4 MG 24 hr capsuleIndications:Darius ign prostatic hyperplasia with nocturia Take 1 capsule (0.4 mg) by mouth at bedtime. 30 capsule 3 025 Active tamsulosin (Flomax) 0.4 MG 24 hr capsule TAKE 1 CAPSULE BY MOUTH AT BEDTIME 023 02/27 Discontinued( Reorder (will not trigger notification to Pharmacy)) rosuvastatin (Crestor) 5 MG tabletIndications:Pure hypercholesterolemia TAKE 1 TABLET BY MOUTH AT BEDTIME 90 tablet 024 02/24 Discontinued acetaminophen (Tylenol 8 Hour) 650 MG ER tablet Take 1 tablet (650 mg) by mouth every 8 (eight) hours if needed for mild pain. Do not crush, chew, or split. 30 tablet 1 025 02/23 Discontinued oxyCODONE (Roxicodone) 5 MG immediate release tabletIndications:Othe r chronic pain Take 1 tablet (5 mg) by mouth every 8 (eight) hours if needed for severe pain for up to 28 days. Do not start before January 23, 2025. 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 Do not start before January 24, 2025. 84 tablet 025 02/22 Discontinued( Reorder (will not trigger notification to Pharmacy)) acetaminophen (Tylenol Extra Strength) 500 MG tabletIndications:Righ t foot pain Take 1 tablet (500 mg) by mouth every 8 (eight) hours if needed for mild pain for up to 10 days. 30 tablet 025 02/05 Active Problems Problem Noted Date Diagnosed Date Overweight (BMI 25.0-29.9) 01/26/2025 Assessment & Plan (01/26/2025 12:47 PM EDT): Patient has been counseled and educated about diet and exercise. Personal goal of weight loss discussed Right foot pain 01/26/2025 Assessment & Plan (01/26/2025 12:54 PM EDT): Pt c/o new onet of right foot pain , primarily under the right MTT joint On exam there is no swelling, no redness, full ROM MTT joint Plan: Plain films, Uric Acid, Acetaminophen PRN Skin lesion of left leg 09/29/2024 Assessment [...] PM EST): Repeat FBG and Hgb A1c Periodontal disease 07/22/2023 Dental calculus 07/22/2023 Frequent falls 07/21/2023 Assessment & Plan (07/21/2023 10:17 AM EDT): I advise to maintain hydration I advise to change position slowly F/u with PCP Right arm numbness 03/23/2023 Assessment & Plan [...] IVC filter and on warfarin -f at [place] [facility] -from records last INR 03/14/2023 [...] (10/23/2022 9:16 AM EST): Dx initially in [place], on exam ? small inguinal hernia pt c/o intermittent pain plan: evaluation by surgeon Dr Goyal. Pt missed the appointment , currently not complaining, will continue with observation. Mild intermittent asthma 02/17/2017 Assessment & Plan (01/26/2025 12:44 PM EDT): Patient here for a follow up No recent asthma exacerbation Assessment & Plan (06/02/2023 3:04 PM EDT): No recent exacerbation Assessment & Plan (03/23/2023 1:39 PM EDT): -pt reports albuterol use prn as well flovent --advised today to use BID flovent to improve asthma management Essential hypertension 12/17/2015 Assessment & Plan (01/26/2025 12:45 PM EDT): Pt here for a routine f/u BP controlled He is on Lisinopril 10 mg po daily BMP Lab Results Component Value Date NA 139 10/05/2024 NA 143 07/23/2024 K 4.0 10/05/2024 K 3.9 07/23/2024 CL 107 10/05/2024 CL 109 (H) 07/23/2024 BUN 16 10/05/2024 BUN 14 07/23/2024 CREATININE 0.89 10/05/2024 CREATININE 1.11 07/23/2024 within normal limits patient advised to adhere to a low sodium diet, encouraged about medication compliance, counseled about weight loss. 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 He has been on coumadin since 2000. He was evaluated extensively by intelligence specialist Dr. Beck who did a hypercoagulable work up that was unrevealing, although she believes pt has a hypercoagulable state and needs to be on coumadin life long. Pt continues to follow at the coumadin clinic Last INR was therapeutic. 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 He has been on coumadin since 2000. He was evaluated extensively by intelligence specialist Dr. Beck who did a hypercoagulable [...] since 2000. He was evaluated extensively by intelligence specialist Dr. Beck who did a hypercoagulable [...] since 2000. He was evaluated extensively by intelligence specialist Dr. Beck who did a hypercoagulable work up that was unrevealing, although she believes pt has a hypercoagulable state and needs to be on coumadin life long. Pt continues to follow at the coumadin clinic Last INR was therapeutic. 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 On coumadin since 2000. Evaluated extensively by intelligence specialist Dr. Beck who did a hypercoagulable [...] partial results. PT was referred to [facility] for [facility] and conservative treatment modalities. 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 pt now has a Narcotic contract with us. Pt was referred to [facility] s/p epidural injection. With excellent [...] with partial results. PT was referred to [facility] for evaluation and conservative treatment modalities. 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 pt now has a Narcotic contract with us. Pt was referred to [facility] s/p epidural injection. With excellent [...] contract with us. Pt was referred to [facility] and is already scheduled for [...] PRN, Continue Oxycodone as prescribed [facility] to [facility] Pt agreeable with plan Pt gives a Hx of chronic low back pain x 15 years. Had an accident at work fell of a a ladder) 20 years ago. Has had PT in the past with partial results. PT was referred to [facility] for evaluation and conservative treatment modalities. He [...] partial results. PT was referred to [facility] for evaluation and conservative treatment modalities. He also is on a Narcotic contract with us. 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 pt now has a Narcotic contract with us. Chronic hoarseness 08/25/2012 Tinnitus 08/25/2012 Pure hypercholesterolemia 03/09/2012 Assessment & Plan (01/26/2025 12:46 PM EDT): Patient is here for a f/u Patient with elevated lipids. Most recent lipid profile from: Lab Results Component Value Date TRIG 179 (H) 10/05/2024 CHOL 171 10/05/2024 LDLCHOLCAL 94 10/05/2024 HDL 42 10/05/2024 Currently on a regimen of: Atorvastatin 40 [...] goal for weight loss. Assessment & Plan (09/29/2024 9:55 AM EST): [...] Problem Noted Date Diagnosed Date Resolved Date Hospital discharge follow-up 07/30/2023 01/26/2025 Assessment & Plan (07/30/2023 1:54 PM EDT): Patient is here for a HDF He was admitted to [facility] from 07/15-07/17 for YUKI, orthostatic syncope and [...] feels perfectly fine, no longer feels dizzy Fracture, maxillary 07/21/2023 01/27/20 Assessment & Plan (07/30/2023 4:02 PM EDT): Ct done at [facility] 07/15/2023 showed: fracture of anterior wall of left maxillary sinus and left side of nasal bone with minimal displacement Pt was referred to the maxillofacial surgeon. I contacted them today they told me they had misfiled his referral, the novelties sales representative of the office told me the had to run the case by one of their surgeons before they would accept it Assessment & Plan (07/21/2023 10:16 AM EDT): Continue with same pain medication regimen as needed Dry cough 07/03/2023 01/26/2025 Assessment & Plan (07/03/2023 5:13 AM EDT): Sx are possibly allergic vs mild viral syndrome. VS and PE normal. Rapid Flu and Covid here was neg today. -Supportive therapy advised. -Prescribed Cetirizine PRN, Dextromethorphan PRN -Alarm signs and Sx discussed. Abnormal chest CT 10/23/2022 01/06/2023 Encounters Date Type Department Care Team Description 03/02/2025 Orders Only GENERIC EXTERNAL DATA DEPARTMENT Provider, Generic External Data 02/27/2025 Refill [facility] [address] [place] [phone] Sancho Yoon MD Benign prostatic hyperplasia with nocturia 02/27/2025 Refill [facility] [address] [place] [address] Sancho Yoon MD Benign prostatic hyperplasia with lower urinary tract symptoms; Other obstructive and reflux uropathy 02/24/2025 Refill [facility] [address] [place] [address] Sancho Yoon MD Pure hypercholesterolemia 02/23/2025 Refill [facility] [address] [place] [address] Miesha Schwartz DO 02/22/2025 Refill [facility] [address] [place], [place] [phone] Sancho Yoon MD Other chronic pain 02/22/2025 Telephone [facility] [address] [place] [address] Sancho Yoon MD Appointment Request 02/22/2025 Refill [facility] [address] [place], [place] [phone] Sancho Yoon MD Other chronic pain 02/22/2025 Refill [facility] [address] [place] [address] Sancho Yoon MD Chronic right-sided low back pain with right-sided sciatica 01/26/2025 1:15 PM EDT Office Visit [facility] [address] [place] [address] Sancho Yoon MD Essential hypertension (Primary Dx); Mild intermittent asthma without complication; Presence of inferior vena cava filter; Pure hypercholesterolemia; Overweight (BMI 25.0-29.9); Dietary counseling; Exercise counseling; Right foot pain 01/26/2025 Travel 01/19/2025 Orders Only GENERIC EXTERNAL DATA DEPARTMENT Provider, Generic External Data 01/16/2025 Patient Outreach [facility] [address] [place] [address] Sancho Yoon MD Pre-visit Planning (Pre-visit planning - LVM ) 01/16/2025 Refill [facility] [address] [place] [address] 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, credit rating inspector right-sided low back pain with right-sided sciatica 01/13/2025 Telephone [facility] [address] [place] [address] Sancho Yoon MD Med Refill 01/13/2025 Telephone [facility] [address] [place] [address] Sancho Yoon MD Chart Prep 01/12/2025 1:00 PM EST Clinical Support [facility] [address] [place] [address] 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 RN Chronic right-sided low back pain with right-sided sciatica 01/12/2025 Refill [facility] [address] [place] [address] 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, ELISEO Other chronic pain 01/12/2025 Telephone [facility] [address] [place] [address] 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 RN 01/12/2025 Telephone [facility] [address] [place] [address] Sancho Yoon MD Med Refill 01/12/2025 Travel 01/11/2025 8:40 AM EST Office Visit [facility] [address] [place] [phone] Chad Foley MD Palpitations (Primary Dx); Essential hypertension 01/11/2025 Travel 01/11/2025 Telephone [facility] [address] [place] [address] 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, ELISEO learning support aide appt 01/11/2025 Telephone [facility] [address] [place] [address] Sancho Yoon MD Medication Question 01/10/2025 Refill [facility] [address] [place] [address] 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, RN Other chronic pain 01/10/2025 Telephone [facility] [address] [place] [address] Sancho Yoon MD Med Refill 01/09/2025 Orders Only GENERIC EXTERNAL DATA DEPARTMENT Provider, Generic External Data 12/28/2024 Telephone [facility] [address] [place] [address] Sancho Yoon MD CRITICAL RESULT CALL; Anticoagulation 12/28/2024 Orders Only GENERIC EXTERNAL DATA DEPARTMENT Provider, Generic External Data 12/21/2024 Telephone [facility] [address] [place] [address] 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, ELISEO 12/20/2024 Telephone [facility] [address] [place] [address] 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 RN 12/16/2024 Refill [facility] [address] [place] [address] Carisa Houston RN Chronic right-sided low back pain with right-sided sciatica (Primary Dx) 12/15/2024 8:40 AM EST Office Visit [facility] [address] [place] [phone] Miesha Schwartz DO COVID-19; Influenza A 12/14/2024 Refill [facility] [address] [place] [address] 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, ELISEO Other chronic pain 12/14/2024 Telephone [facility] [address] [place] [address] Sancho Yoon MD Med Refill 12/07/2024 Orders [...] Sign Reading Time Taken Comments Blood Pressure 135/84 01/26/2025 12:46 PM EDT Pulse 90 01/26/2025 12:46 PM EDT Temperature 36.1 ??C (96.9 ??F) 01/26/2025 12:46 PM E DT Respiratory Rate 20 01/26/2025 12:46 PM EDT Oxygen Saturation 96% 01/26/2025 12:46 PM EDT Inhaled Oxygen Concentration - - Weight 99.4 kg (219 lb 3.2 oz) 01/26/2025 12:46 PM EDT Height 182.9 cm (6') 01/26/2025 12:46 PM EDT Body Mass Index 29.73 01/26/2025 12:46 PM EDT Plan of Treatment Upcoming Encounters Date Type Department Care Team (Late st Contact Info) Description 03/15/2025 8:00 AM EDT Office Visit [facility] [address] [place] [address] Yi Sanchez 05/09/2025 1:15 PM EDT Office Visit [facility] [address] [place] [address] Sancho Yoon MD [address] [place] [address] Health Maintenance Due Date Last Done Comments CT Colonography 1955 FIT DNA/Cologuard 1955 FIT 1955 FOBT 1955 Sigmoidoscopy 1955 Hepatitis A Vaccines (2 of 2 - Risk 2-dose series) 12/04/2002 06/03/2002 Hepatitis B Vaccines (3 of 3 - Risk 3-dose series) 01/22/2010 09/26/2009, 07/25/2009 RSV Patients and Patients Aged 60 years or older (1 - Risk 60-74 years 1-dose series) 2014 Dental Oral Exam 03/09/2025 09/07/2024, , 07/23/2023, Additional history exists Dental Prophylaxis 03/09/2025 09/07/2024, 0 02/02/2024, 07/22/2023, Additional history exists Dental X-Ray: Bitewings 09/08/2025 09/07/20, 07/22/2023, 07/04/2022 Alcohol/Substance Use Screening 09/29/2025 09/29/2024 Depression Screening 09/29/2025 09/29/2024, 09/29/20 SDOH Screening 09/29/2025 09/29/2024 Tobacco Screening 01/11/2026 01/11/2025 Dental X-Ray: Full Mouth 07/23/2026 07/22/2023, 10/16 [...] [facility] Routine 03/02/2025 2:31 PM EDT XR FOOT 3+ VIEWS RIGHT Routine 01/26/2025 1:22 PM EDT Right foot pain PROTHROMBIN TIME WHOLE BLD POC Routine 01/19/2025 3:13 PM EST ~PT, ~INR - ANTI COAG CLINIC Routine 01/19/2025 3:13 PM EST POCT DU-14 URINE DRUG SCREEN Routine 01/12/2025 1:03 PM EST Chronic right-sided low back pain with right-sided sciatica ECG 12-LEAD Routine 01/11/2025 2:09 PM EST Palpitations PROTHROMBIN TIME WHOLE BLD POC Routine 01/09/2025 [...] [facility] Routine 12/07/2024 3:28 PM EST LIPID PANEL, STANDARD Routine 10/05/2024 10:25 AM EST Pure hypercholesterolemia PROPHYLAXIS - ADULT Routine 09/07/2024 8 :00 AM EDT Dental calculus Dental plaque BITEWINGS - 4 RADIOGRAPHIC IMAGES Routine 09/07/2024 8:00 AM EDT PERIODIC ORAL EVALUATION - ESTABLISHED PATIENT Routine 09/07/2024 8:00 AM EDT INTRAORAL - COMPLETE SERIES OF RADIOGRAPHIC IMAGES Routine 07/22/2023 3:00 PM EDT Periodontal disease Dental calculus HM COLONOSCOPY Routine 02/17/2022 from Last 3 Months or Most Recently Relevant to Health Maintenance Results * (ABNORMAL) PROTHROMBIN TIME WHOLE BLD POC (03/02/2025 2:31 PM EDT) Only the most recent of5 resultswithin the time period is included. Protime 49.5(H) 11.1 - 13.5 sec [facility] 03/02/2025 2:31 PM EDT 03/02/2025 2:32 PM EDT us Generic External Data Provider LAB BLOOD ORDERAB LES Final Result Performing Organization Address City/State/[facility] de Phone Number [facility] [address] [place] [phone] [phone] * (ABNORMAL) ~PT, ~INR - ANTI COAG CLINIC (03/02/2025 2:31 PM EDT) Only the most recent of5 resultswithin the time period is included. Prothrombin Time INR 4.1(H) 0.9 - 1.1 [facility] Comment:METER #: [id number] TERNATIONAL NORMALIZED RATIO (INR) REFERENCE RANGES Reference [...] ORDERAB LES Final Result Performing Organization Address [facility] de Phone Number [facility] [address] [place] [phone] * XR Foot 3+ Views Right (01/26/2025 1:22 PM EDT) Anatomical Region Laterality Modality Lower Extremities, Foot Right Radiogra phic Imaging 01/26/2025 1:22 PM EDT Narrative 01/26/2025 2:07 PM EDT ?[facility] ?[address] ?[place] [address] ?XRay Report ? Signed ? Patient: Cerda Maninder,Clint ?MR#: [id number] ?? [id number] ? : 1955 ?Acct:[id number] ? Age/Sex: 69 / M ?ADM Date: 03/13/25 ? Loc: HO.HHCX ? Attending Dr: Sancho Bean MD ? Ordering Physician: Sancho Bean MD ?? Date of Service: 01/26/25 ?? Procedure(s): XR foot RT min 3V ?? Accession Number(s): [id number] ? cc: Sancho Bean MD ? EXAMINATION: ??XR FOOT 3 OR MORE VIEWS RIGHT ? HISTORY: right foot pain ? COMPARISON: There are no prior studies available for comparison. ? FINDINGS: ? Four views of the right foot are submitted. ??Osseous mineralization is ?? normal. ??There is no fracture or dislocation. ??The joint spaces are ?? preserved. There is a small plantar calcaneal spur. ??There are vascular ?? calcifications. ? XR/XR foot RT min 3V ?? IMPRESSION: ? Small plantar calcaneal spur. Otherwise unremarkable examination of the ?? right foot. ? Electronically signed by: ??Joshua Cooper MD ??01/26/2025 02:04 PM EDT ? Dictated By: ?Joshua Cooper MD ? Signed By: ?<Electronically signed by Joshua Cooper MD in OV> ?01/26/25 1404 ? DD/ 1322 ? TD/TT: 01/26/25 1400 ? Professional Nursing Assistant: ? Procedure Note Romero, Image - 01/26/[address] [address] XRay Report Signed Patient: Clint Beckford#: [id number] : 5Acct:[id number] Age/Sex: 69 / MADM Date: 01/26/25 Loc: HO.HHCX Attending Dr: Sancho Bean MD Ordering Physician: Sancho Bean MD Date of Service: 01/26/25 Procedure(s): XR foot RT min 3V Accession Number(s): [id number] cc: Sancho Bean MD EXAMINATION: XR FOOT 3 OR MORE VIEWS RIGHT HISTORY: right foot pain COMPARISON: There are no prior studies available for comparison. FINDINGS: Four views of the right foot are submitted. Osseous mineralization is normal. There is no fracture or dislocation. The joint spaces are preserved. There is a small plantar calcaneal spur. There are vascular calcifications. XR/XR foot RT min 3V IMPRESSION: Small plantar calcaneal spur. Otherwise unremarkable examination of the right foot. Electronically signed by: Joshua Cooper MD 01/26/2025 02:04 PM EDT Dictated By: Joshua Cooper MD Signed By: <Electronically signed by Joshua Cooper MD in OV> 01/26/25 1404 DD/ 1322 TD/TT: 01/26/25 1400 Professional Nursing Assistant: Sancho Mayberry MD IMG XR PROCEDURES Mamadou sanket Result - Final * POCT DU-14 Urine Drug Screen (01/12/2025 1:03 PM EST) [facility] Oxycodone Screen, Urine Positive Urine Urine specimen obtained by clean catch procedure / Unknown 01/12/2025 1:03 PM EST Narrative 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 RN - 01/12/2025 1:03 PM EST Lot# [id number] Exp: 07-05-26 Sancoh Mayberry MD POINT OF CARE TEST EN TER/EDIT ORDERABLES Final Result * Influenza B (ID NOW Rapid Molecular) (12/15/2024 9:00 AM EST) [facility] Influenza B Negative Negative, Indeterminate [facility] Swab 12/15/2024 9:00 AM EST Miesha Schwartz DO POINT OF CARE TEST ENTER/MAMADOU T ORDERABLES Final Result [facility] [address] [place] [phone] * (ABNORMAL) Influenza A (ID NOW Rapid Molecular) (12/15/2024 9:00 AM EST) [facility] Influenza A Positive( A) Negative, Indeterminate [facility] Swab 12/15/2024 9:00 AM EST Miesha Efren DO POINT OF CARE TEST ENTER/MAMADOU T ORDERABLES Final Result Performing Organization Address [facility] Co de Phone Number [facility] [address] [place] [phone] * (ABNORMAL) POCT Rapid COVID Ag (12/15/2024 9:00 AM EST) Pathologist [facility] Rapid COVID Ag Positive [facility] Swab 12/15/2024 9:00 AM EST Miesha Efren DO POINT OF CARE TEST ENTER/MAMADOU T ORDERABLES Final Result Performing Organization Address [facility] de Phone Number [facility] [address] [place] [phone] * (ABNORMAL) Lipid Panel, Standard (10/05/2024 10:25 AM EST) Pathologist [facility] Triglycerides 179(H) <150 mg/dL [facility] Comment:Desirable Triglyceri de: less than 150 mg/dLBorderline High Triglyceride 150-199 mg/dLHigh Triglyceride: 200-499 mg/dLVery High Triglyceride: greater than or equal to 5OO mg/dL Cholesterol 171 <200 mg/dL [facility] Comment:Desirable Cholestero l: less than 200 mg/dLBorderline High Cholesterol: 200-239 mg/dLHigh Cholesterol: greater than 239 mg/dL LDL Cholesterol Calculated 94 <100 mg/dL [facility] Comment:Desirable LDL: less than 100 mg/dLNear Optimal/Above Optimal LDL: 110- 129 mg/dLBorderline High LDL: 130-159 mg/dLHigh LDL: 160-189 mg/dLVery High LDL: greater than or equal to 190 mg/dL HDL Cholesterol 42 >40 mg/dL [facility] Comment:Desirable HDL: great er than 40 mg/dL Note: This HDL assay may give artificially low results in patients with liver disease. Blood Venous blood specimen / Unknown 10/05/2024 10:25 AM EST 10/05/2024 11:28 AM EST Sancho Mayberry MD LAB BLOOD ORDERABLES Final Result [facility] [address] [place] [phone] * Colonoscopy (02/17/2022) Colonoscopy performed Historical Provider HEALTH MAINTENANCE Edited Result - Final from Last 3 Months or Most Recently Relevant to Health Maintenance Insurance [facility] Member Subscriber Plan / Payer (Ef fective 2024-Present) Name:Clint Beckford Relation to Subscriber:Self Name:Clint Beckford Payer ID:Not on file Group ID:[id number] Type:Not on file Address: [address] STANDARD Care Teams Kiss Setter Hand Relationship Specialty Start Date End Date Sancho Yoon MD [address] [facility] [place] [address] PCP - General Internal Medicine 08/16/14
--- OUTSIDE RECORDS SUMMARY | 2025-03-02 17:24 | XMS_ITS | Encounter Summary ---
Author Organization [employer] Address [address] [facility] 7t [place] [address] Care Team Providers Care Silo Filler Name Role Phone Sancho Yoon MD Primary Care Provide r Reason for Visit * Reason Comments Med Refill Encounter Details Date Type Department Care Team ([facility] st Contact Info) Description 11/04/2024 Refill [facility] [address] [place], [place] [phone] Sancho Yoon MD [address] [place], [place] [phone] Erectile dysfunction, unspecified erectile dysfunction type Social [...] Description 03/15/2025 8:00 AM EDT Office Visit [facility] ADULT DENTAL [address] [place] [address] Yi Sanchez 05/09/2025 1:15 PM EDT Office Visit [facility] [address] [place] [address] Sancho Yoon MD [address] [place] [address] documented as of this encounter Visit Diagnoses Diagnosis Erectile dysfunction, unspecified erectile dysfunction type documented in this encounter Additional Health Concerns Assessment Noted Time PHQ-9 Depression Total Score: 0 09/29/20 24 9:48 AM EST documented as of this encounter Care Teams Silo Filler Relationship Specialty Start Date End Date Sancho Yoon MD [address] [place] [address] PCP - General Internal Medicine 08/16/14 documented as of this encounter
--- OUTSIDE RECORDS SUMMARY | 2025-03-02 17:24 | XMS_ITS | Encounter Summary ---
Author Organization [employer] Address [address] [facility] 7t [place] [address] Care Team Providers Care Industrial Safety And Health Manager Name Role Phone Sancho Yoon MD Primary Care Provide r Reason for Visit * Reason Comments Med Refill Encounter Details Date Type Department Care Team ([facility] st Contact Info) Description 02/08/2024 Refill [facility] [address] [place], [place] [phone] Sancho Yoon MD [address] [place], [place] [phone] Other chronic pain Social History Tobacco Use [...] Office Visit [facility] ADULT DENTAL [address] [place] [address] Yi Sanchez 05/09/2025 1:15 PM EDT Office Visit [facility] [address] [place] [address] Sancho Yoon MD [address] [place] [address] documented as of this encounter Visit Diagnoses Diagnosis Other chronic pain documented in this encounter Additional Health Concerns Assessment Noted Time PHQ-9 Depression Total Score: 3 03/23/20 23 1:07 PM EDT documented as of this encounter Care Teams Industrial Safety And Health Manager Relationship Specialty Start Date End Date Sancho Yoon MD [address] [place] [address] PCP - General Internal Medicine 08/16/14 documented as of this encounter
--- OUTSIDE RECORDS SUMMARY | 2025-03-02 17:24 | XMS_ITS | Encounter Summary ---
Author Organization [employer] Address [address] [facility] 7t [place] [address] Care Team Providers Care Livestock Ranch Hand Name Role Phone Sancho Yoon MD Primary Care Provide r Reason for Visit * Reason Comments Med Refill Encounter Details Date Type Department Care Team ([facility] st Contact Info) Description 10/21/2023 Refill [facility] [address] [place], [place] [phone] Sancho Yoon MD [address] [place] [address] Pure hypercholesterolemia Social History Tobacco Use Types [...] Description 03/15/2025 8:00 AM EDT Office Visit [facility] ADULT DENTAL [address] [place] [address] Yi Sanchez 05/09/2025 1:15 PM EDT Office Visit [facility] [address] [place] [address] Sancho Yoon MD [address] [place] [address] documented as of this encounter Visit Diagnoses Diagnosis Pure hypercholesterolemia documented in this encounter Additional Health Concerns Assessment Noted Time PHQ-9 Depression Total Score: 3 03/23/20 23 1:07 PM EDT documented as of this encounter Care Teams Livestock Ranch Hand Relationship Specialty Start Date End Date Sancho Yoon MD [address] [place] [address] PCP - General Internal Medicine 08/16/14 documented as of this encounter
--- OUTSIDE RECORDS SUMMARY | 2025-03-02 17:24 | XMS_ITS | Encounter Summary ---
Author Organization [employer] Address [address] [facility] 7t [place] [address] Care Team Providers Care Aluminum Boats Assembler Name Role Phone Sancho Yoon MD Primary Care Provide r Reason for Visit * Reason Comments Med Refill Encounter Details Date Type Department Care Team ([facility] st Contact Info) Description 02/27/2025 Refill [facility] MED[facility]INE [address] [place], [place] [phone] Sancho Yoon MD [address] [place] [address] Benign prostatic hyperplasia with lower urinary tract symptoms; Other obstructive and reflux uropathy Social History Tobacco Use Types Packs/Day Years [...] Description 03/15/2025 8:00 AM EDT Office Visit [facility] ADULT DENTAL [address] [place] [address] Yi Sanchez 05/09/2025 1:15 PM EDT Office Visit [facility] MED[facility]INE [address] [place] [address] Sancho Yoon MD [address] [place] [address] documented as of this encounter Visit Diagnoses Diagnosis Benign prostatic hyperplasia with lower urinary tract symptoms Other obstructive and reflux uropathy documented in this encounter Additional Health Concerns Assessment Noted Time PHQ-9 Depression Total Score: 0 09/29/20 9:48 AM EST documented as of this encounter Care Teams Aluminum Boats Assembler Relationship Specialty Start Date End Date Sancho Yoon MD [address] [place] [address] PCP - General Internal Medicine 08/16/14 documented as of this encounter
--- OUTSIDE RECORDS SUMMARY | 2025-03-02 17:24 | XMS_ITS | Encounter Summary ---
Author Organization [employer] [facility] Address [address] [facility] 7t [place] [address] Care Team Providers Care Commercial Estimator Name Role Phone Sancho Yoon MD Primary Care Provide r Encounter Details Date Type Department Care Team (Latest Contact Info) Description 07/04/2022 Abstract [facility] CONVERSIONS Dental, Provider, DDS Social History [...] Description 03/15/2025 8:00 AM EDT Office Visit [facility] ADULT DENTAL [address] [place] [address] Yi Sanchez 05/09/2025 1:15 PM EDT Office Visit [facility] MED[facility] [address] [place] [address] Sancho Yoon MD [address] [place], [place] [phone] documented as of this encounter Visit Diagnoses Not on filedocumented in this encounter Care Teams Commercial Estimator Relationship Specialty Start Date End Date Sancho Yoon MD [address] [place] [phone] PCP - General Internal Medicine 08/16/14 documented as of this encounter
--- OUTSIDE RECORDS SUMMARY | 2025-03-02 17:24 | XMS_ITS ---
Author Organization [facility] Address [address] [place] [address] Care Team Providers Care Animal Care Supervisor Name Role Phone Raman Mayberry MD, Sancho Primary Care Provide Joshua Harvey [phone] REASON FOR VISIT Patient presents today for hx hep c Encounters Encounter Location Date Provider Diagnosis [facility] [address] [place] [address] 12/22/2024 Joshua Valdivia Plan Of Treatment Next Appt Details Provider Name:Joshua Valdivia , 04/27/2025 10:20:00 AM, [address], [address], [place], [address], Progress Notes * VENANCIO LARRYDOB:[birth year] (69 yo M)Acc No.[id number]:12/22/2024 Progress Notes Patient:?VENANCIO LARRY Provider:?Joshua Valdivia MD :1955???Age:69 Y???Sex:Male David e:12/22/2024 [address], [place], [id number] Pcp:Sancho sandhu MD Subjective: * Chief Complaints: [...] MD Date:? 025 Generated for Jayla pollock/Megha/Matt on:?03/02/2025 05:24 PM EDT
--- OUTSIDE RECORDS SUMMARY | 2025-03-02 17:24 | XMS_ITS | Encounter Summary ---
Author Organization [employer] Address [address] [facility] 7t [place] [address] Care Team Providers Care Buffing Wheel Former Automatic Name Role Phone Sancho Yoon MD Primary Care Provide r Reason for Visit * Reason Comments Med Refill Encounter Details Date Type Department Care Team ([facility] st Contact Info) Description 10/21/2023 Refill [facility] MEDICINE [address] [place], [place] [phone] Sancho Yoon MD [address] [place] [address] Pure hypercholesterolemia Social History Tobacco Use Types [...] Description 03/15/2025 8:00 AM EDT Office Visit [facility] ADULT DENTAL [address] [place] [address] Yi Sanchez 05/09/2025 1:15 PM EDT Office Visit [facility] MED[facility] [address] [place] [address] Sancho Yoon MD [address] [place] [address] documented as of this encounter Visit Diagnoses Diagnosis Pure hypercholesterolemia documented in this encounter Additional Health Concerns Assessment Noted Time PHQ-9 Depression Total Score: 3 03/23/20 23 1:07 PM EDT documented as of this encounter Care Teams Buffing Wheel Former Automatic Relationship Specialty Start Date End Date Sancho Yoon MD [address] [place] [address] PCP - General Internal Medicine 08/16/14 documented as of this encounter
--- OUTSIDE RECORDS SUMMARY | 2025-03-02 17:24 | XMS_ITS | Encounter Summary ---
Author Organization [employer] Address [address] [facility] 7t [place] [address] Care Team Providers Care Field Installation Technician Name Role Phone Sancho Yoon MD Primary Care Provide r Reason for Visit * Reason Onset Date Comments Med Refill 04/19/2024 Encounter Details Date Type Department Care Team ([facility] st Contact Info) Description 04/19/2024 Telephone [facility] MEDICINE [address] [place], [place] [phone] Sancho Yoon MD [address] [place], [place] [phone] Med Refill Social History Tobacco Use Types [...] immediate release tablet To be sent to: [facility] documented in this encounter Plan of Treatment Upcoming Encounters Date Type Department Care Team (Late st Contact Info) Description 03/15/2025 8:00 AM EDT Office Visit [facility] ADULT DENTAL [address] [place] [address] Yi Sanchez 05/09/2025 1:15 PM EDT Office Visit [facility] MEDICINE [address] [place] [address] Sancho Yoon MD [address] [place] [address] documented as of this encounter Visit Diagnoses Not on filedocumented in this encounter Additional Health Concerns Assessment Noted Time PHQ-9 Depression Total Score: 3 03/23/20 23 1:07 PM EDT documented as of this encounter Care Teams Field Installation Technician Relationship Specialty Start Date End Date Sancho Yoon MD [address] [place] [address] PCP - General Internal Medicine 08/16/14 documented as of this encounter
--- OUTSIDE RECORDS SUMMARY | 2025-03-02 17:24 | XMS_ITS | Encounter Summary ---
Author Organization [employer] Address [address] [facility] [facility] [address] [place] [address] Care Team Providers Care Marketing Automation Analyst Name Role Phone Sancho Yoon MD Primary Care Provide r Encounter Details Date Type Department Care Team (Late Contact Info) Description 10/29/2022 Orders Only [facility] MEDICINE [address] [place] [address] Sancho Yoon MD [address] [place] [address] Pleural scarring (Primary Dx); Abnormal chest CT [...] Description 03/15/2025 8:00 AM EDT Office Visit [facility] ADULT DENTAL [address] [place] [address] Yi Sanchez 05/09/2025 1:15 PM EDT Office Visit [facility] MEDICINE [address] [place] [address] Sancho Yoon MD [address] [place] [address] documented as of this encounter Procedures Procedure [...] EST) Protime 42.3(H) 11.1 - 13.5 sec [facility] 12/18/2022 2:35 PM EST 12/18/2022 2:37 PM EST us [facility] External Provider LAB BLO OD ORDERABLES Final Result [facility] [address] [place] [address] [phone] * (ABNORMAL) ~PT, ~INR - ANTI COAG CLINIC (12/18/2022 2:35 PM EST) Prothrombin Time INR 3.5(H) 0.9 - 1.1 [facility] Comment:METER #: [id number] TERNATIONAL NORMALIZED RATIO (INR) REFERENCE RANGES Reference [...] 2:35 PM EST 12/18/2022 2:37 PM EST [facility] External Provider LAB BLO OD ORDERABLES Final Result Performing Organization Address [facility] Co de Phone Number [facility] [address] [place] [address] [phone] * (ABNORMAL) PROTHROMBIN TIME WHOLE BLD POC (12/11/2022 2:35 PM EST) Protime 36.7(H) 11.1 - 13.5 sec [facility] 12/11/2022 2:35 PM EST 12/11/2022 2:36 PM EST [facility] External Provider LAB BLO OD ORDERABLES Final Result Performing Organization Address [facility] de Phone Number [facility] [address] [place] [address] [phone] * (ABNORMAL) ~PT, ~INR - ANTI COAG CLINIC (12/11/2022 2:35 PM EST) Prothrombin Time INR 3.1(H) 0.9 - 1.1 [facility] Comment:METER #: [id number] TERNATIONAL NORMALIZED RATIO (INR) REFERENCE RANGES Reference [...] 2:35 PM EST 12/11/2022 2:36 PM EST [facility] External Provider LAB BLO OD ORDERABLES Final Result Performing Organization Address [facility] Co de Phone Number [facility] [address] [place] [address] [phone] * (ABNORMAL) PROTHROMBIN TIME WHOLE BLD POC (12/04/2022 3:39 PM EST) Protime 56.8(H) 11.1 - 13.5 sec [facility] 12/04/2022 3:39 PM EST 12/04/2022 3:40 PM EST [facility] External Provider LAB BLO OD ORDERABLES Final Result Performing Organization Address [facility] Phone Number [facility] [address] [place] [address] [phone] * (ABNORMAL) ~PT, ~INR - ANTI COAG CLINIC (12/04/2022 3:39 PM EST) Prothrombin Time INR 4.7(H) 0.9 - 1.1 [facility] Comment:METER #: [id number] TERNATIONAL NORMALIZED RATIO (INR) REFERENCE RANGES Reference [...] 3:39 PM EST 12/04/2022 3:40 PM EST [facility] External Provider LAB BLO OD ORDERABLES Final Result Performing Organization Address [facility] Co de Phone Number [facility] [address] [place] [address] [phone] * (ABNORMAL) Liver Fibrosis, FibroTest-ActiTest Panel (12/04/2022 10:15 AM EST) Liver Fibrosis Score 0.58 [facility] Liver Fibrosis Stage F2 [facility] Liver Fibrosis Interpretation SEE NOTE [facility] Comment:moderate fibrosisFib ro Test Score [...] (severe fibrosis) Nec Inflam Act Score 0.41 [facility] Nec Inflam Act Grade A1-A2 [facility] Nec Inflam Act Interpretation SEE NOTE [facility] Comment:minimal activityActi Test Score (a) Metavir Score a>=0 and a<=0.17 : A0 (no activity)a>0.17 and a<=0.29 : A0-A1 (no activity)a>0.29 and a<=0.36 : A1 (minimal activity)a>0.36 and a<=0.52 : A1-A2 (minimal activity)a>0.52 and a<=0.60 : A2 (significant activity)a>0.60 and a<=0.62 : A2-A3 (significant activity)a>0.62 and a<=1.00 : A3 (severe activity) DLX-Fglls-9-Macroglo bulin 275 106 - 279 mg/dL [facility] FIB-Haptoglobin 120 43 - 212 mg/dL [facility] FIB-Apolipoprotein A1 171 94 - 176 mg/dL [facility] FIB-Total Bilirubin 0.8 0.2 - 1.2 mg/dL [facility] FIB-GGT 64 3 - 70 U/L [facility] FIB-ALT 53(A) 9 - 46 U/L [facility] Reference ID [id number] [facility] Footnote SEE NOTE [facility] Comment: The reliability of results [...] and C.The performance characteristics have been determined by[employer] [facility]. Ithas not been cleared or approved by the U.S. Food and DrugAdministration. Performance characteristics refer to theanalytical performance of the test.[employer], the associated logo, [employer] and all associated [employer] holloway are theregistered trademarks of [employer]. All third partymarks - (R) and (TM) - are the property of their respectiveowners. (C) [id number] [employer]. Allrights reserved.THIS TEST WAS PERFORMED AT:[facility] [id number] [place] ??[id number] JERNIGAN MD,PHD,DAYDAY 12/04/2022 10:1 5 AM EST 12/04/2022 10:15 AM EST us [facility] External Provider LAB BLO OD ORDERABLES Final Result [facility] [address] [place] [address] [phone] * Alphafetoprotein, Tumor Marker (12/04/2022 10:15 AM EST) Alpha Fetoprotein 2.5 <6.1 ng/mL [facility] Comment:This test was perfor med using the Deacon Coulterchemiluminescent method. Values obtained fromdifferent assay methods cannot be usedinterchangeably. AFP levels, regardless ofvalue, should not be interpreted as absoluteevidence of the presence or absence of disease.THIS TEST WAS PERFORMED AT:[facility] [address] ([address])[place] [id number] PALOMARES MD 12/04/2022 10:1 5 AM EST 12/04/2022 10:15 AM EST [facility] External Provider LAB BLO OD ORDERABLES Final Result Performing Organization Address [facility] Co de Phone Number [facility] [address] [place] [address] [phone] * (ABNORMAL) Hepatic Function Panel (12/04/2022 10:15 AM EST) Bilirubin, Total 1.0 0.0 - 1.0 mg/dL [facility] Bilirubin, Direct 0.3 0.0 - 0.5 mg/dL [facility] Aspartate Amino Transferase 35 5 - 37 U/L [facility] Alanine Aminotransferase 58(H) 0 - 40 U/L [facility] Total Protein 7.2 6.5 - 8.0 g/dL [facility] Albumin Level 4.2 3.5 - 5.0 g/dL [facility] Alkaline Phosphatase 63 39 - 117 U/L [facility] 12/04/2022 10:1 5 AM EST 12/04/2022 10:15 AM EST [facility] External Provider LAB BLO OD ORDERABLES Final Result [facility] [address] [place], [place] [phone] * (ABNORMAL) CBC auto differential (12/04/2022 10:15 AM EST) White Blood Count 6.9 4.8 - 10.8 X10*3/uL [facility] Red Blood Count 4.93 4.60 - 5.80 X10*6/uL [facility] Hemoglobin 15.0 14.0 - 18.0 g/dl [facility] Hematocrit 44.5 42.0 - 52.0 % [facility] Mean Corpuscular Volume 90.3 80.0 - 98.0 fL [facility] Mean Corpuscular Hemoglobin 30.4 27.0 - 33.0 pg [facility] Mean Corpuscular HGB Conc 33.7 31.0 - 36.0 g/dl [facility] Red Cell Distribution Width 13.4 11.0 - 16.0 % [facility] Platelet Count 218 160 - 400 X10*3/uL [facility] Mean Platelet Volume 10.0 9.4 - 12.4 fL [facility] Neutrophils Percent Auto 34.1(L) 45 - 73 % [facility] Imm Gran Pct Auto 0.4 0.0 - 0.4 % [facility] Lymphocytes Percent Auto 52.2(H) 20 - 40 % [facility] Monocytes Percent Auto 9.0 2 - 11 % [facility] Eosinophils Percent Auto 3.9 0 - 4 % [facility] Basophils Percent Auto 0.4 0 - 2 % [facility] NRBC Pct Auto 0.0 0.0 - 0.2 /100WBC [facility] Neutrophils Absolute Auto 2.3 2.0 - 8.3 x10*3/uL [facility] Imm Gran Abs Auto 0.03 0.00 - 0.03 X10*3/uL [facility] Lymphocytes Absolute Auto 3.6 1.2 - 4.9 X10*3/uL [facility] Monocytes Absolute Auto 0.6 0.1 - 1.2 X10*3/uL [facility] Eosinophils Absolute Auto 0.3 0.0 - 0.4 X10*3/uL [facility] Basophils Absolute Auto 0.0 0.0 - 0.2 X10*3/uL [facility] NRBC Abs Auto 0.000 0.0 - 0.012 X10*3/uL [facility] 12/04/2022 10:1 5 AM EST 12/04/2022 10:15 AM EST [facility] External Provider LAB BLO OD ORDERABLES Final Result Performing Organization Address [facility] de Phone Number [facility] [address] [place] [address] [phone] * POCT Creatinine GFR (12/04/2022 9:49 AM EST) [facility] POCT Creatinine 0.9 0.5 - 1.4 mg/dL [facility] GFR POC >60 [facility] Comment:Chronic Kidney Disea se: Estimated GFR < 60 mL/min/1.08q0Ikrbnp Kidney Disease: Estimated GFR < 15 mL/min/1.73m2 12/04/2022 9:49 AM EST 12/04/2022 4:06 PM EST Narrative [facility] - 12/04/2022 4:07 PM EST [id number] [facility] Exter nal Provider LAB POINT OF CARE TEST DOCKED DEVICE ORDERABLES Final Result Performing Organization Address [facility] de Phone Number [facility] [address] [place] [address] [phone] * (ABNORMAL) PROTHROMBIN TIME WHOLE BLD POC (12/03/2022 2:54 PM EST) Protime 69.3(H) 11.1 - 13.5 sec [facility] 12/03/2022 2:54 PM EST 12/03/2022 3:30 PM EST Result [facility] External Provider LAB BLO OD ORDERABLES Final Result Performing Organization Address [facility] de Phone Number [facility] [address] [place] [address] [phone] * (ABNORMAL) ~PT, ~INR - ANTI COAG CLINIC (12/03/2022 2:54 PM EST) Prothrombin Time INR 5.8(HH) 0.9 - 1.1 [facility] Comment:METER #: [id number] ctor NotifiedINTERNATIONAL NORMALIZED RATIO (INR) REFERENCE RANGES [...] PM EST 12/03/2022 3:30 PM EST Result [facility] External Provider LAB BLO OD ORDERABLES Final Result Performing Organization Address [facility] Co de Phone Number [facility] [address] [place] [address] [phone] * (ABNORMAL) PROTHROMBIN TIME WHOLE BLD POC (11/26/2022 2:46 PM EST) Protime 40.1(H) 11.1 - 13.5 sec [facility] 11/26/2022 2:46 PM EST 11/26/2022 2:47 PM EST Result [facility] External Provider LAB BLO OD ORDERABLES Final Result Performing Organization Address City/[facility]/ZIP Co de Phone Number [facility] [address] [place] [address] [phone] * (ABNORMAL) ~PT, ~INR - ANTI COAG CLINIC (11/26/2022 2:46 PM EST) Prothrombin Time INR 3.3(H) 0.9 - 1.1 [facility] Comment:METER #: [id number] TERNATIONAL NORMALIZED RATIO (INR) REFERENCE RANGES Reference [...] 2:46 PM EST 11/26/2022 2:47 PM EST [facility] External Provider LAB BLO OD ORDERABLES Final Result Performing Organization Address [facility] Co de Phone Number [facility] [address] [place] [address] [phone] * (ABNORMAL) PROTHROMBIN TIME WHOLE BLD POC (11/05/2022 3:33 PM EST) Protime 33.6(H) 11.1 - 13.5 sec [facility] 11/05/2022 3:33 PM EST 11/05/2022 3:35 PM EST [facility] External Provider LAB BLO OD ORDERABLES Final Result Performing Organization Address [facility]/ZIP Co de Phone Number [facility] [address] [place] [address] [phone] * (ABNORMAL) ~PT, ~INR - ANTI COAG CLINIC (11/05/2022 3:33 PM EST) Prothrombin Time INR 2.8(H) 0.9 - 1.1 [facility] Comment:METER #: [id number] TERNATIONAL NORMALIZED RATIO (INR) REFERENCE RANGES Reference [...] 3:33 PM EST 11/05/2022 3:35 PM EST [facility] External Provider LAB BLO OD ORDERABLES Final Result Performing Organization Address [facility] de Phone Number [facility] [address] [place] [address] [phone] * (ABNORMAL) PROTHROMBIN TIME WHOLE BLD POC (10/29/2022 3:11 PM EST) Protime 45.2(H) 11.1 - 13.5 sec [facility] 10/29/2022 3:11 PM EST 10/30/2022 7:55 AM EST [facility] External Provider LAB BLO OD ORDERABLES Final Result Performing Organization Address [facility] de Phone Number [facility] [address] [place] [address] [phone] * (ABNORMAL) ~PT, ~INR - ANTI COAG CLINIC (10/29/2022 3:11 PM EST) Prothrombin Time INR 3.8(H) 0.9 - 1.1 [facility] Comment:METER #: [id number] TERNATIONAL NORMALIZED RATIO (INR) REFERENCE RANGES Reference [...] 3:11 PM EST 10/30/2022 7:55 AM EST [facility] External Provider LAB BLO OD ORDERABLES Final Result [facility] [address] [place] [address] [phone] documented in this encounter Visit Diagnoses Diagnosis Pleural scarring- Primary Pleurisy without mention of effusion or current tuberculosis Abnormal chest CT Nonspecific (abnormal) findings on radiological and other examination of other intrathoracic organs documented in this encounter Care Teams Marketing Automation Analyst Relationship Specialty Start Date End Date Sancho Yoon MD [address] [place] [phone] PCP - General Internal Medicine 08/16/14 documented as of this encounter
== END 2025-03-02 14:44 | disposition home or self-care (01) ==
LOC: HO.ACS 14:23
PROVIDERS: PCP Internal Medicine; Visit Provider Internal Medicine Medical Oncology
DX: Z79.01 Long term (current) use of anticoagulants (principal)

== ENCOUNTER → 2025-03-02 14:23 | Outpatient (BNVA) | payer OTHER, SELFPAY | PROVIDERS: PCP Internal Medicine; Visit Provider Internal Medicine Medical Oncology | DX: I26.99 Other pulmonary embolism without acute cor pulmonale (principal); I82.409 Acute embolism and thrombosis of unspecified deep veins of unspecified lower extremity; Z79.01 Long term (current) use of anticoagulants; Z51.81 Encounter for therapeutic drug level monitoring | CPT/HCPCS: 85610; 99211 ==

== ENCOUNTER 2025-03-13 14:36 | Outpatient (AMB) | payer OTHER, SELFPAY ==
[2025-03-13 15:18] LABS: ~PT, ~INR - Anti Coag Clinic 3.1 (0.9-1.1)
--- NOTE | 2025-03-13 15:29 | MHC.OFFVISCO ---
Intake Intake Visit Reasons: Anticoagulation Allergies No Known Drug Allergies [NO KNOWN DRUG ALLERGIES] Allergy (Mild, Verified 03/13/25 15:13) NONE Medication List - Last Reconciled 03/13/25 by Zainab Rodriguez RN acetaminophen ER 650 mg PO Q8H PRN albuterol sulfate 90 mcg/actuation (ProAir HFA) 2 puffs inhalation Q4-6H PRN fluoride (sodium) 1.1% (PreviDent 5000 Booster Plus) dental BID fluticasone propionate 110 mcg/actuation (Flovent HFA) 1 puff PO BID fluticasone propionate 50 mcg/actuation sprays intranasal gabapentin q pm hydrocortisone acetate (Anusol-HC) 25 mg PA BID lisinopril 10 mg PO DAILY 30 days loratadine 10 mg PO DAILY meclizine 25 mg PO DAILY PRN oxycodone 5 mg PO Q8H PRN rosuvastatin 5 mg PO BEDTIME sildenafil (Viagra) 100 mg PO DAILY PRN tamsulosin 0.4 mg PO DAILY 90 days tizanidine 2 mg PO Q6H PRN warfarin 7.5 mg See Protocol PO DAILY@1800 Nursing Note INR: 3.1?out of therapeutic range of 2.5-3 Medications and supplements reviewed Patient status: well Medications or supplements: no changes Diet: usual diet for pt Denies any signs and symptoms of bleeding or clotting or unusual bruising Bleeding, bruising, clotting discussed Nutritional guidance given: to have a serving of greens today Dose: 5mg X 4 days and 7.5mg X 3 days F/U INR Date: 3 weeks?? Patient verbalizing understanding of instructions given. Anti-Coag Initial Assessment Social Hx Patient Tobacco Use Status: Never used Tobacco alcohol intake: former Alcohol intake frequency: does not drink Coding Level of Care Code Est Patient Level 1 Diagnoses Current use of anticoagulant therapy Z79.01 Results AMB INR Fingerstick AMB INR Fingerstick 3.1 Last Edit by Zainab Rodriguez RN on 03/13/25 15:18 interface delay Assessment & Plan Assessment & Plan (1) Current use of anticoagulant therapy: Code(s): Z79.01 - correction (current) use of anticoagulants Category: Medical
--- OUTSIDE RECORDS SUMMARY | 2025-03-13 17:26 | XMS_ITS | Encounter Summary ---
Author Organization [employer] [facility] Address [address] [facility] 7t [place] [address] Care Team Providers Care Starch Mangle Tender Name Role Phone Sancho Yoon MD Primary Care Provide r Encounter Details Date Type Department Care Team (Latest Contact Info) Description 04/16/2021 Abstract [facility] CONVERSIONS Dental, Provider, DDS Social History Tobacco [...] Office Visit [facility] ADULT DENTAL [address] [place] [address] Yi Sanchez 05/09/2025 1:15 PM EDT Office Visit [facility] MEDICINE [address] [place] [address] Sancho Yoon MD [address] [place], [place] [phone] documented as of this encounter Visit Diagnoses Not on filedocumented in this encounter Care Teams Starch Mangle Tender Relationship Specialty Start Date End Date Sancho Yoon MD [address] [place] [address] [phone] PCP - General Internal Medicine 08/16/14 documented as of this encounter
--- OUTSIDE RECORDS SUMMARY | 2025-03-13 17:26 | XMS_ITS | Encounter Summary ---
Author Organization [employer] Address [address] [facility] 7t [place] [address] Care Team Providers Care Wine Blender Name Role Phone Sancho Yoon MD Primary Care Provide r Reason for Visit * Reason Onset Date Comments Med Refill 06/27/2024 Encounter Details Date Type Department Care Team ([facility] st Contact Info) Description 06/27/2024 Telephone [facility] MEDICINE [address] [place], [place] [phone] Sancho Yoon MD [address] [place], [place] [phone] Med Refill Social History Tobacco Use Types [...] immediate release tablet To be sent to: [facility] - [place], [place] - [address] [place] [address] documented in this encounter Plan of Treatment Upcoming Encounters Date Type Department Care Team (Late st Contact Info) Description 03/15/2025 8:00 AM EDT Office Visit [facility] ADULT DENTAL [address] [place] [address] Yi Sanchez 05/09/2025 1:15 PM EDT Office Visit [facility] MEDICINE [address] [place] [address] Sancho Yoon MD [address] [place] [address] documented as of this encounter Visit Diagnoses Not on filedocumented in this encounter Additional Health Concerns Assessment Noted Time PHQ-9 Depression Total Score: 3 03/23/20 23 1:07 PM EDT documented as of this encounter Care Teams Wine Blender Relationship Specialty Start Date End Date Sancho Yoon MD [address] [place] [address] PCP - General Internal Medicine 08/16/14 documented as of this encounter
--- OUTSIDE RECORDS SUMMARY | 2025-03-13 17:26 | XMS_ITS | Encounter Summary ---
Author Organization [employer] Address [address] [facility] [address] [place] [address] Care Team Providers Care Mechanical Laboratory Technician Name Role Phone Sancho Yoon MD Primary Care Provide r Encounter Details Date Type Department Care Team ([facility] st Contact Info) Description 09/14/2023 Telephone [facility] MEDICINE [address] [place] [address] Sancho Yoon MD [address] [place] [address] Social History Tobacco Use Types Packs/Day Years [...] Description 03/15/2025 8:00 AM EDT Office Visit [facility] ADULT DENTAL [address] [place] [address] Yi Sanchez 05/09/2025 1:15 PM EDT Office Visit [facility] MEDICINE [address] [place] [address] Sancho Yoon MD [address] [place] [phone] documented as of this encounter Visit Diagnoses Not on filedocumented in this encounter Additional Health Concerns Assessment Noted Time PHQ-9 Depression Total Score: 3 03/23/20 23 1:07 PM EDT documented as of this encounter Care Teams Mechanical Laboratory Technician Relationship Specialty Start Date End Date Sancho Yoon MD [address] [place] [address] PCP - General Internal Medicine 08/16/14 documented as of this encounter
--- OUTSIDE RECORDS SUMMARY | 2025-03-13 17:26 | XMS_ITS | Encounter Summary ---
Author Organization [employer] Address [address] [facility] [address] [place] [address] Care Team Providers Care Hand Spring Repairer Name Role Phone Sancho Yoon MD Primary Care Provide r Reason for Visit * Reason Comments Med Refill Encounter Details Date Type Department Care Team ([facility] st Contact Info) Description 01/24/2024 Refill [facility] [address] [place], [place] [phone] Sancho Yoon MD [address] [place], [place] [phone] Social History Tobacco Use Types Packs/Day Years [...] 03/15/2025 8:00 AM EDT Office Visit [facility] ADULT DENTAL [address] [place] [address] Yi Sanchez 05/09/2025 1:15 PM EDT Office Visit [facility] MEDICINE [address] [place] [address] Sancho Yoon MD [address] [place] [phone] documented as of this encounter Visit Diagnoses Not on filedocumented in this encounter Additional Health Concerns Assessment Noted Time PHQ-9 Depression Total Score: 3 03/23/20 23 1:07 PM EDT documented as of this encounter Care Teams Hand Spring Repairer Relationship Specialty Start Date End Date Sancho Yoon MD [address] [place] [address] PCP - General Internal Medicine 08/16/14 documented as of this encounter
--- OUTSIDE RECORDS SUMMARY | 2025-03-13 17:26 | XMS_ITS | Encounter Summary ---
Author Organization [employer] [facility] Address [address] [facility] 7t [place] [address] Care Team Providers Care Golf Course Mechanic Name Role Phone Sancho Yoon MD Primary Care Provide r Encounter Details Date Type Department Care Team (Latest Contact Info) Description 07/04/2022 Abstract [facility] CONVERSIONS Dental, Provider, DDS Social History [...] Description 03/15/2025 8:00 AM EDT Office Visit [facility] ADULT DENTAL [address] [place] [address] Yi Sanchez 05/09/2025 1:15 PM EDT Office Visit [facility] MEDICINE [address] [place] [address] Sancho Yoon MD [address] [place], [place] [phone] documented as of this encounter Visit Diagnoses Not on filedocumented in this encounter Care Teams Golf Course Mechanic Relationship Specialty Start Date End Date Sancho Yoon MD [address] [place] [address] [phone] PCP - General Internal Medicine 08/16/14 documented as of this encounter
--- OUTSIDE RECORDS SUMMARY | 2025-03-13 17:26 | XMS_ITS | Encounter Summary ---
Author Organization [employer] Address 75 [facility] 7t [place] [address] Care Team Providers Care Six Sigma Black Trainer Name Role Phone Sancho Yoon MD Primary Care Provide r Reason for Visit * Reason Comments Med Refill Encounter Details Date Type Department Care Team ([facility] Contact Info) Description 08/19/2023 Refill [facility] [address] [place], [place] [phone] Sancho Yoon MD [address] [place] [address] Social History Tobacco Use Types Packs/Day Years [...] Description 03/15/2025 8:00 AM EDT Office Visit [facility] [address] [place] [address] Yi Sanchez 05/09/2025 1:15 PM EDT Office Visit [facility] [address] [place] [address] Sancho Yoon MD [address] [place] [address] documented as of this encounter Visit Diagnoses Not on filedocumented in this encounter Additional Health Concerns Assessment Noted Time PHQ-9 Depression Total Score: 3 03/23/20 23 1:07 PM EDT documented as of this encounter Care Teams Six Sigma Black Trainer Relationship Specialty Start Date End Date Sancho Yoon MD [address] [place] [address] PCP - General Internal Medicine 08/16/14 documented as of this encounter
--- OUTSIDE RECORDS SUMMARY | 2025-03-13 17:26 | XMS_ITS | Encounter Summary ---
Author Organization [employer] Address 75 [facility] 7t [place] [address] Care Team Providers Care Nylon Winder Name Role Phone Sancho Yoon MD Primary Care Provide r Reason for Visit * Reason Comments Med Refill Encounter Details Date Type Department Care Team ([facility] st Contact Info) Description 10/21/2023 Refill [facility] [address] [place], [place] [phone] Sancho Yoon MD [address] [place] [address] Pure hypercholesterolemia Social History Tobacco Use Types [...] 8:00 AM EDT Office [facility] [address] [place] [address] Yi Sanchez 05/09/2025 1:15 PM EDT Office [facility] [address] [place] [address] Sancho Yoon MD [address] [place] [address] documented as of this encounter Visit Diagnoses Diagnosis Pure hypercholesterolemia documented in this encounter Additional Health Concerns Assessment Noted Time PHQ-9 Depression Total Score: 3 03/23/20 23 1:07 PM EDT documented as of this encounter Care Teams Nylon Winder Relationship Specialty Start Date End Date Sancho Yoon MD [address] [place] [address] PCP - General Internal Medicine 08/16/14 documented as of this encounter
--- OUTSIDE RECORDS SUMMARY | 2025-03-13 17:26 | XMS_ITS | Encounter Summary ---
Author Organization [employer] [facility] Address 75 [facility] 7t [place] [address] Care Team Providers Care News Technical Director Name Role Phone aSncho Yoon MD Primary Care Provide r Encounter Details Date Type Department Care Team (Latest Contact Info) Description 10/26/2019 Abstract [facility] Dental, Provider, DDS Social History [...] Description 03/15/2025 8:00 AM EDT Office Visit [facility]ULT [facility] [address] [place] [address] Yi Sanchez 05/09/2025 1:15 PM EDT Office Visit [facility] [address] [place] [address] Sancho Yoon MD 230 [place] [address] documented as of this encounter Visit Diagnoses Not on filedocumented in this encounter Care Teams News Technical Director Relationship Specialty Start Date End Date Sancho Yoon MD [address] [place] [address] [phone] PCP - General Internal Medicine 08/16/14 documented as of this encounter
--- OUTSIDE RECORDS SUMMARY | 2025-03-13 17:26 | XMS_ITS | Encounter Summary ---
Author Organization [employer] Address [address] [facility] [address] 7t [place] [address] Care Team Providers Care Telephone Surveyor Name Role Phone Sancho Yoon MD Primary Care Provide r Reason for Visit * Reason Comments Med Refill Encounter Details Date Type Department Care Team ([facility] st Contact Info) Description 11/18/2023 Refill [facility] 230 [place], [place] [phone] Chad Foley MD 230 [place], [place] [phone] Social History Tobacco Use Types Packs/Day Years [...] Description 03/15/2025 8:00 AM EDT Office Visit [facility] 230 [place] [address] Yi Sanchez 05/09/2025 1:15 PM EDT Office Visit [facility] 230 [place] [address] Sancho Yoon MD [address] [place] [address] documented as of this encounter Visit Diagnoses Not on filedocumented in this encounter Additional Health Concerns Assessment Noted Time PHQ-9 Depression Total Score: 3 03/23/20 23 1:07 PM EDT documented as of this encounter Care Teams Telephone Surveyor Relationship Specialty Start Date End Date Sancho Yoon MD [address] [place] [address] PCP - General Internal Medicine 08/16/14 documented as of this encounter
--- OUTSIDE RECORDS SUMMARY | 2025-03-13 17:26 | XMS_ITS | Encounter Summary ---
Author Organization [employer] [facility] Address [address] [facility] 7t [place] [address] Care Team Providers Care Card Dealer Name Role Phone Sancho Yoon MD Primary Care Provide r Encounter Details Date Type Department Care Team (Late st Contact Info) Description 07/28/2023 Abstract [facility] [address] [place] [address] Mildred Duran [address] [place] [address] Social History Tobacco Use Types Packs/Day Years [...] Description 03/15/2025 8:00 AM EDT Office Visit [facility] [address] [place] [address] Yi Sanchez 05/09/2025 1:15 PM EDT Office Visit [facility] [address] [place] [address] Sancho Yoon MD [address] [place] [address] documented as of this encounter Visit Diagnoses Not on filedocumented in this encounter Additional Health Concerns Assessment Noted Time PHQ-9 Depression Total Score: 3 03/23/20 23 1:07 PM EDT documented as of this encounter Care Teams Card Dealer Relationship Specialty Start Date End Date Sancho Yoon MD [address] [place] [address] PCP - General Internal Medicine 08/16/14 documented as of this encounter
--- OUTSIDE RECORDS SUMMARY | 2025-03-13 17:26 | XMS_ITS | Encounter Summary ---
Author Organization [employer] Address 75 [facility] 7t [place] [address] Care Team Providers Care Senior Marketing Specialist Name Role Phone Sancho Yoon MD Primary Care Provide r Reason for Visit * Reason Onset Date Comments Med Refill 01/10/2025 Encounter Details Date Type Department Care Team ([facility] st Contact Info) Description 01/10/2025 Telephone [facility] 230 [place], [place] [phone] Sancho Yoon MD 230 [place], [place] [phone] Med Refill Social History Tobacco Use Types [...] immediate release tablet To be sent to: [facility] documented in this encounter Plan of Treatment Upcoming Encounters Date Type Department Care Team (Late st Contact Info) Description 03/15/2025 8:00 AM EDT Office Visit [facility] [address] [place] [address] Yi Sanchez 05/09/2025 1:15 PM EDT Office Visit [facility] [address] [place] [address] Sancho Yoon MD [address] [place] [address] documented as of this encounter Visit Diagnoses Not on filedocumented in this encounter Additional Health Concerns Assessment Noted Time PHQ-9 Depression Total Score: 0 09/29/20 9:48 AM EST documented as of this encounter Care Teams Senior Marketing Specialist Relationship Specialty Start Date End Date Sancho Yoon MD 230 [place] [address] PCP - General Internal Medicine 08/16/14 documented as of this encounter
--- OUTSIDE RECORDS SUMMARY | 2025-03-13 17:26 | XMS_ITS | Encounter Summary ---
Author Organization [employer] Address [address] [facility] 7t [place] [address] Care Team Providers Care Court Bailiff Name Role Phone Sancho Yoon MD Primary Care Provide r Reason for Visit * Reason Comments Med Refill Encounter Details Date Type Department Care Team ([facility] st Contact Info) Description 02/27/2025 Refill [facility] [address] [place], [place] [phone] Sancho Yoon MD [address] [place], [place] [phone] Benign prostatic hyperplasia with lower urinary tract [...] Description 03/15/2025 8:00 AM EDT Office Visit [facility] AD[facility] D[facility] [address] [place] [address] Yi Sanchez 05/09/2025 1:15 PM EDT Office Visit [facility] [address] [place] [address] Sancho Yoon MD [address] [place] [address] documented as of this encounter Visit Diagnoses Diagnosis Benign prostatic hyperplasia with lower urinary tract symptoms Other obstructive and reflux uropathy documented in this encounter Additional Health Concerns Assessment Noted Time PHQ-9 Depression Total Score: 0 09/29/20 9:48 AM EST documented as of this encounter Care Teams Court Bailiff Relationship Specialty Start Date End Date Sancho Yoon MD [address] [place] [address] PCP - General Internal Medicine 08/16/14 documented as of this encounter
--- OUTSIDE RECORDS SUMMARY | 2025-03-13 17:26 | XMS_ITS | Encounter Summary ---
Author Organization [employer] Address [address] [facility] [address] 7t [place] [address] Care Team Providers Care Finance Specialist Name Role Phone Sancho Yoon MD Primary Care Provide r Encounter Details Date Type Department Care Team ([facility] st Contact Info) Description 09/17/2023 Telephone [facility] 230 [place] [address] Sancho Yoon MD 230 [place] [address] Social History Tobacco Use Types Packs/Day Years [...] Result line call received from Eileen with [facility] Anticoag. INR today 1.2 same as on Thursday. Low since Ortho injection hold. Warfarin today 10mg Tomorrow warfarin 10mg Thursday and Thursday 7.5 Recheck Thursday Please call Patient if Lovenox is indicated. Update PCP now please. documented in this encounter Plan of Treatment Upcoming Encounters Date Type Department Care Team (Late st Contact Info) Description 03/15/2025 8:00 AM EDT Office Visit [facility] ADULT DENT[facility] [address] [place] [address] Yi Sanchez 05/09/2025 1:15 PM EDT Office Visit [facility] [address] [place] [address] Sancho Yoon MD [address] [place] [address] documented as of this encounter Visit Diagnoses Not on filedocumented in this encounter Additional Health Concerns Assessment Noted Time PHQ-9 Depression Total Score: 3 03/23/20 23 1:07 PM EDT documented as of this encounter Care Teams Finance Specialist Relationship Specialty Start Date End Date Sancho Yoon MD [address] [place] [address] PCP - General Internal Medicine 08/16/14 documented as of this encounter
--- OUTSIDE RECORDS SUMMARY | 2025-03-13 17:26 | XMS_ITS | Encounter Summary ---
Author Organization [employer] Address [address] [facility] 7t [place] [address] Care Team Providers Care Microsoft Windows Engineer Name Role Phone Sancho Yoon MD Primary Care Provide r Reason for Visit * Reason Comments Med Refill Encounter Details Date Type Department Care Team ([facility] st Contact Info) Description 07/02/2024 Refill [facility] 230 [place], [place] [phone] Sancho Yoon MD [address] [place] [address] Mild intermittent asthma without complication Social History [...] Description 03/15/2025 8:00 AM EDT Office Visit [facility] ADULT DENT[facility] [address] [place] [address] Yi Sanchez 05/09/2025 1:15 PM EDT Office Visit [facility] [address] [place] [address] Sancho Yoon MD [address] [place] [address] documented as of this encounter Visit Diagnoses Diagnosis Mild intermittent asthma without complication documented in this encounter Additional Health Concerns Assessment Noted Time PHQ-9 Depression Total Score: 3 03/23/20 23 1:07 PM EDT documented as of this encounter Care Teams Microsoft Windows Engineer Relationship Specialty Start Date End Date Sancho Yoon MD [address] [place] [address] PCP - General Internal Medicine 08/16/14 documented as of this encounter
--- OUTSIDE RECORDS SUMMARY | 2025-03-13 17:26 | XMS_ITS | Encounter Summary ---
Author Organization [employer] Address [address] [facility] 7t [place] [address] Care Team Providers Care Electric Switch Repairer Name Role Phone Sancho Yoon MD Primary Care Provide r Reason for Visit * Reason Onset Date Comments Appointment Request 04/05/2024 Encounter Details Date Type Department Care Team ([facility] Contact Info) Description 04/05/2024 Telephone [facility] 230 [place] [address] Sancho Yoon MD 230 [place], [place] [phone] Appointment Request Social History Tobacco Use Types [...] to know if there is any upcoming SURGICAL MANAGER visits to be scheduled. Please contact pt at [phone]. documented in this encounter Plan of Treatment Upcoming Encounters Date Type Department Care Team (Late st Contact Info) Description 03/15/2025 8:00 AM EDT Office Visit [facility] ADULT DENTAL 230 [place] [address] Yi Sanchez 05/09/2025 1:15 PM EDT Office Visit [facility] 230 [place] [address] Sancho Yoon MD 230 [place] [address] documented as of this encounter Visit Diagnoses Not on filedocumented in this encounter Additional Health Concerns Assessment Noted Time PHQ-9 Depression Total Score: 3 03/23/20 23 1:07 PM EDT documented as of this encounter Care Teams Electric Switch Repairer Relationship Specialty Start Date End Date Sancho Yoon MD 230 [place] [address] PCP - General Internal Medicine 08/16/14 documented as of this encounter
--- OUTSIDE RECORDS SUMMARY | 2025-03-13 17:26 | XMS_ITS | Encounter Summary ---
Author Organization [employer] Address 75 [facility] 7t [place] [address] Care Team Providers Care Classroom Technology Coach Name Role Phone Sancho Yoon MD Primary Care Provide r Reason for Visit * Reason Onset Date Comments New Med Request 09/01/2023 Encounter Details Date Type Department Care Team ([facility] st Contact Info) Description 09/01/[address] [facility] 230 [place] [address] Sancho Yoon MD [address] [place], [place] [phone] New Med Request Social History Tobacco Use [...] 09/08/2023 8:54 AM EDT Received call from [facility] Coumadin [facility] regarding INR, spoke to Yi. [...] procedure on 09/08/2023. Any questions contact pt. Chinese speaker documented in this encounter Plan of Treatment Upcoming Encounters Date Type Department Care Team (Late st Contact Info) Description 03/15/2025 8:00 AM EDT Office Visit [facility] ADULT DENT[facility] [address] [place] [address] Yi Sanchez 05/09/2025 1:15 PM EDT Office Visit [facility] [address] [place] [address] Sancho Yoon MD [address] [place] [address] documented as of this encounter Visit Diagnoses Not on filedocumented in this encounter Additional Health Concerns Assessment Noted Time PHQ-9 Depression Total Score: 3 03/23/20 23 1:07 PM EDT documented as of this encounter Care Teams Classroom Technology Coach Relationship Specialty Start Date End Date Sancho Yoon MD [address] [place] [address] PCP - General Internal Medicine 08/16/14 documented as of this encounter
--- OUTSIDE RECORDS SUMMARY | 2025-03-13 17:26 | XMS_ITS | Encounter Summary ---
Author Organization [employer] Address 75 [facility] 7t [place] [address] Care Team Providers Care Table Assembler Metal Name Role Phone Sancho Yoon MD Primary Care Provide r Reason for Visit * Reason Onset Date Comments Med Refill 07/25/2024 Encounter Details Date Type Department Care Team ([facility] st Contact Info) Description 07/25/2024 Telephone [facility] 230 [place], [place] [phone] Sancho Yoon MD 230 [place], [place] [phone] Med Refill Social History Tobacco Use Types [...] immediate release tablet To be sent to: [facility] [place], [place] - [address] [place] [address] documented in this encounter Plan of Treatment Upcoming Encounters Date Type Department Care Team (Late st Contact Info) Description 03/15/2025 8:00 AM EDT Office Visit [facility] [address] [place] [address] Yi Sanchez 05/09/2025 1:15 PM EDT Office Visit [facility] 230 [place] [address] Sancho Yoon MD 230 [place] [address] documented as of this encounter Visit Diagnoses Not on filedocumented in this encounter Additional Health Concerns Assessment Noted Time PHQ-9 Depression Total Score: 3 03/23/20 23 1:07 PM EDT documented as of this encounter Care Teams Table Assembler Metal Relationship Specialty Start Date End Date Sancho Yoon MD 230 [place] [address] PCP - General Internal Medicine 08/16/14 documented as of this encounter
--- OUTSIDE RECORDS SUMMARY | 2025-03-13 17:26 | XMS_ITS | Encounter Summary ---
Author Organization [employer] Address [address] [address] 7t [place] [address] Care Team Providers Care Web Application Dev Specialist Name Role Phone Sancho Yoon MD Primary Care Provide r Encounter Details Date Type Department Care Team ([facility] st Contact Info) Description 03/03/2024 Telephone [facility] 230 [place] [address] Sancho Yoon MD [address] [place] [address] Social History Tobacco Use Types Packs/Day Years [...] Result line call received from Kimberley at [facility] anticoag INR 5.2 rechecked with lab and 4.8 Warfarin on hold today Warfarin 5mg tomorrow and then 7.5mg Thursday and 5 mg on Thursday. Recheck Thursday Please update PCP as indicated. documented in this encounter Plan of Treatment Upcoming Encounters Date Type Department Care Team (Late st Contact Info) Description 03/15/2025 8:00 AM EDT Office Visit [facility] 230 [place] [address] Yi Sanchez 05/09/2025 1:15 PM EDT Office Visit [facility] [address] [place] [address] Sancho Yoon MD [address] [place] [address] documented as of this encounter Visit Diagnoses Not on filedocumented in this encounter Additional Health Concerns Assessment Noted Time PHQ-9 Depression Total Score: 3 03/23/20 23 1:07 PM EDT documented as of this encounter Care Teams Web Application Dev Specialist Relationship Specialty Start Date End Date Sancho Yoon MD [address] [place] [address] PCP - General Internal Medicine 08/16/14 documented as of this encounter
--- OUTSIDE RECORDS SUMMARY | 2025-03-13 17:26 | XMS_ITS | Encounter Summary ---
Author Organization [employer] Address 75 [facility] 7t [place] [address] Care Team Providers Care Supervisor Drilling And Shooting Name Role Phone Sancho Yoon MD Primary Care Provide r Reason for Visit * Reason Onset Date Comments Med Refill 04/19/2024 Encounter Details Date Type Department Care Team ([facility] st Contact Info) Description 04/19/2024 Telephone [facility] MED[facility] 230 [place], [place] [phone] Sancho Yoon MD [address] [place], [place] [phone] Med Refill Social History Tobacco Use Types [...] immediate release tablet To be sent to: [facility] documented in this encounter Plan of Treatment Upcoming Encounters Date Type Department Care Team (Late st Contact Info) Description 03/15/2025 8:00 AM EDT Office Visit [facility] ADULT DENTAL [address] [place] [address] Yi Sanchez 05/09/2025 1:15 PM EDT Office Visit [facility] MED[facility]INE 230 [place] [address] Sancho Yoon MD [address] [place] [address] documented as of this encounter Visit Diagnoses Not on filedocumented in this encounter Additional Health Concerns Assessment Noted Time PHQ-9 Depression Total Score: 3 03/23/20 23 1:07 PM EDT documented as of this encounter Care Teams Supervisor Drilling And Shooting Relationship Specialty Start Date End Date Sancho Yoon MD [address] [place] [address] PCP - General Internal Medicine 08/16/14 documented as of this encounter
--- OUTSIDE RECORDS SUMMARY | 2025-03-13 17:26 | XMS_ITS | Encounter Summary ---
Author Organization [employer] Address [address] [facility] 7t [place] [address] Care Team Providers Care Associate Software Development Engineer Name Role Phone Sancho Yoon MD Primary Care Provide r Reason for Visit * Reason Comments Med Refill Encounter Details Date Type Department Care Team ([facility] st Contact Info) Description 10/21/2023 Refill [facility] 230 [place], [place] [phone] Sancho Yoon MD 230 [place] [address] Pure hypercholesterolemia Social History Tobacco Use Types [...] Description 03/15/2025 8:00 AM EDT Office Visit [facility] ADULT DENTAL [address] [place] [address] Yi Sanchez 05/09/2025 1:15 PM EDT Office Visit [facility] [address] [place] [address] Sancho Yoon MD [address] [place] [address] documented as of this encounter Visit Diagnoses Diagnosis Pure hypercholesterolemia documented in this encounter Additional Health Concerns Assessment Noted Time PHQ-9 Depression Total Score: 3 03/23/20 23 1:07 PM EDT documented as of this encounter Care Teams Associate Software Development Engineer Relationship Specialty Start Date End Date Sancho Yoon MD [address] [place] [address] PCP - General Internal Medicine 08/16/14 documented as of this encounter
--- OUTSIDE RECORDS SUMMARY | 2025-03-13 17:26 | XMS_ITS | Encounter Summary ---
Author Organization [employer] Address [address] [facility] 7t [place] [address] Care Team Providers Care Generating Plant Superintendent Name Role Phone Sancho Yoon MD Primary Care Provide r Reason for Visit * Reason Comments Med Refill Encounter Details Date Type Department Care Team ([facility] st Contact Info) Description 02/08/2024 Refill [facility] 230 [place], [place] [phone] Sancho Yoon MD 230 [place], [place] [phone] Other chronic pain Social History Tobacco Use [...] 8:00 AM EDT Office Visit [facility] ADULT DENT[facility] [address] [place] [address] Yi Sanchez 05/09/2025 1:15 PM EDT Office Visit [facility] [address] [place] [address] Sancho Yoon MD [address] [place] [address] documented as of this encounter Visit Diagnoses Diagnosis Other chronic pain documented in this encounter Additional Health Concerns Assessment Noted Time PHQ-9 Depression Total Score: 3 03/23/20 23 1:07 PM EDT documented as of this encounter Care Teams Generating Plant Superintendent Relationship Specialty Start Date End Date Sancho Yoon MD [address] [place] [address] PCP - General Internal Medicine 08/16/14 documented as of this encounter
--- OUTSIDE RECORDS SUMMARY | 2025-03-13 17:26 | XMS_ITS | Encounter Summary ---
Author Organization [employer] Address [address] [place] [address] Care Team Providers Care Intervention Manager Name Role Phone Sancho Yoon MD Primary Care Provide r Encounter Details Date Type Department Care Team (Late Contact Info) Description 10/29/2022 Orders Only [facility] MED[facility] [address] [place] [address] Sancho Yoon MD [address] [place] [address] Pleural scarring (Primary Dx); Abnormal chest CT [...] Visit [facility] ADULT DENTAL [address] [place] [address] Yi Sanchez 05/09/2025 1:15 PM EDT Office Visit [facility] MED[facility]INE [address] [place] [address] Sancho Yoon MD [address] [place] [address] documented as of this encounter Procedures Procedure [...] EST) Protime 42.3(H) 11.1 - 13.5 sec [facility] 12/18/2022 2:35 PM EST 12/18/2022 2:37 PM EST us [facility] External Provider LAB BLO OD ORDERABLES Final Result [facility] [address] [place] [address] [phone] * (ABNORMAL) ~PT, ~INR - ANTI COAG CLINIC (12/18/2022 2:35 PM EST) Prothrombin Time INR 3.5(H) 0.9 - 1.1 [facility] Comment:METER #: [id number] TERNATIONAL NORMALIZED RATIO (INR) REFERENCE RANGES Reference [...] 2:35 PM EST 12/18/2022 2:37 PM EST [facility] External Provider LAB BLO OD ORDERABLES Final Result Performing Organization Address [facility] Co de Phone Number [facility] [address] [place] [address] [phone] * (ABNORMAL) PROTHROMBIN TIME WHOLE BLD POC (12/11/2022 2:35 PM EST) Protime 36.7(H) 11.1 - 13.5 sec [facility] 12/11/2022 2:35 PM EST 12/11/2022 2:36 PM EST [facility] External Provider LAB BLO OD ORDERABLES Final Result Performing Organization Address [facility] de Phone Number [facility] [address] [place] [address] [phone] * (ABNORMAL) ~PT, ~INR - ANTI COAG CLINIC (12/11/2022 2:35 PM EST) Prothrombin Time INR 3.1(H) 0.9 - 1.1 [facility] Comment:METER #: [id number] TERNATIONAL NORMALIZED RATIO (INR) REFERENCE RANGES Reference [...] 2:35 PM EST 12/11/2022 2:36 PM EST [facility] External Provider LAB BLO OD ORDERABLES Final Result Performing Organization Address [facility] Co de Phone Number [facility] [address] [place] [address] [phone] * (ABNORMAL) PROTHROMBIN TIME WHOLE BLD POC (12/04/2022 3:39 PM EST) Protime 56.8(H) 11.1 - 13.5 sec [facility] 12/04/2022 3:39 PM EST 12/04/2022 3:40 PM EST [facility] External Provider LAB BLO OD ORDERABLES Final Result Performing Organization Address [facility] Phone Number [facility] [address] [place] [address] [phone] * (ABNORMAL) ~PT, ~INR - ANTI COAG CLINIC (12/04/2022 3:39 PM EST) Prothrombin Time INR 4.7(H) 0.9 - 1.1 [facility] Comment:METER #: [id number] TERNATIONAL NORMALIZED RATIO (INR) REFERENCE RANGES Reference [...] 3:39 PM EST 12/04/2022 3:40 PM EST [facility] External Provider LAB BLO OD ORDERABLES Final Result Performing Organization Address [facility] Co de Phone Number [facility] [address] [place] [address] [phone] * (ABNORMAL) Liver Fibrosis, FibroTest-ActiTest Panel (12/04/2022 10:15 AM EST) Liver Fibrosis Score 0.58 [facility] Liver Fibrosis Stage F2 [facility] Liver Fibrosis Interpretation SEE NOTE [facility] Comment:moderate fibrosisFib ro Test Score (f) Metavir Score f>=0 and f<=0.21 : F0 (no fibrosis)f>0.21 and f<=0.27 : F0-F1 (no fibrosis)f>0.27 and f<=0.31 : F1 (minimal fibrosis)f>0.31 and f<=0.48 : F1-F2 (minimal fibrosis)f>0.48 and f<=0.58 : F2 (moderate fibrosis)f>0.58 and f<=0.72 : F3 (advanced fibrosis)f>0.72 and f<=0.74 : F3-F4 (advanced fibrosis)f>0.74 and f<=1.00 : F4 (severe fibrosis) Nec Inflam Act Score 0.41 [facility] Nec Inflam Act Grade A1-A2 [facility] Nec Inflam Act Interpretation SEE NOTE [facility] Comment:minimal activityActi Test Score (a) Metavir Score a>=0 and a<=0.17 : A0 (no activity)a>0.17 and a<=0.29 : A0-A1 (no activity)a>0.29 and a<=0.36 : A1 (minimal activity)a>0.36 and a<=0.52 : A1-A2 (minimal activity)a>0.52 and a<=0.60 : A2 (significant activity)a>0.60 and a<=0.62 : A2-A3 (significant activity)a>0.62 and a<=1.00 : A3 (severe activity) RNR-Sktpz-7-Macroglo bulin 275 106 - 279 mg/dL [facility] FIB-Haptoglobin 120 43 - 212 mg/dL [facility] FIB-Apolipoprotein A1 171 94 - 176 mg/dL [facility] FIB-Total Bilirubin 0.8 0.2 - 1.2 mg/dL [facility] FIB-GGT 64 3 - 70 U/L [facility] FIB-ALT 53(A) 9 - 46 U/L [facility] Reference ID [id number] [facility] Footnote SEE NOTE [facility] Comment: The reliability of results is [...] and C.The performance characteristics have been determined by[facility] [facility] [place]. Ithas not been cleared or approved by the U.S. Food and DrugAdministration. Performance characteristics refer to theanalytical performance of the test.[employer], the associated logo, [employer] and all associated [employer] holloway are theregistered trademarks of [employer]. All third partymarks - (R) and (TM) - are the property of their respectiveowners. (C) [id number] [employer]. Allrights reserved.THIS TEST WAS PERFORMED AT:[employer] [id number] [place] ??[phone] JERNIGAN MD,PHD,DAYDAY 12/04/2022 10:1 5 AM EST 12/04/2022 10:15 AM EST us [facility] External Provider LAB BLO OD ORDERABLES Final Result [facility] [address] [place] [address] [phone] * Alphafetoprotein, Tumor Marker (12/04/2022 10:15 AM EST) Alpha Fetoprotein 2.5 <6.1 ng/mL [facility] Comment:This test was perfor med using the Deacon Coulterchemiluminescent method. Values obtained fromdifferent assay methods cannot be usedinterchangeably. AFP levels, regardless ofvalue, should not be interpreted as absoluteevidence of the presence or absence of disease.THIS TEST WAS PERFORMED AT:[employer] [address] ([address])[place] [address]GENWITINO PALOMARES MD 12/04/2022 10:1 5 AM EST 12/04/2022 10:15 AM EST [facility] External Provider LAB BLO OD ORDERABLES Final Result Performing Organization Address [facility] Co de Phone Number [facility] [address] [place] [address] [phone] * (ABNORMAL) Hepatic Function Panel (12/04/2022 10:15 AM EST) Bilirubin, Total 1.0 0.0 - 1.0 mg/dL [facility] Bilirubin, Direct 0.3 0.0 - 0.5 mg/dL [facility] Aspartate Amino Transferase 35 5 - 37 U/L [facility] Alanine Aminotransferase 58(H) 0 - 40 U/L [facility] Total Protein 7.2 6.5 - 8.0 g/dL [facility] Albumin Level 4.2 3.5 - 5.0 g/dL [facility] Alkaline Phosphatase 63 39 - 117 U/L [facility] 12/04/2022 10:1 5 AM EST 12/04/2022 10:15 AM EST [facility] External Provider LAB BLO OD ORDERABLES Final Result [facility] [address] [place], [place] [phone] * (ABNORMAL) CBC auto differential (12/04/2022 10:15 AM EST) White Blood Count 6.9 4.8 - 10.8 X10*3/uL [facility] Red Blood Count 4.93 4.60 - 5.80 X10*6/uL [facility] Hemoglobin 15.0 14.0 - 18.0 g/dl [facility] Hematocrit 44.5 42.0 - 52.0 % [facility] Mean Corpuscular Volume 90.3 80.0 - 98.0 fL [facility] Mean Corpuscular Hemoglobin 30.4 27.0 - 33.0 pg [facility] Mean Corpuscular HGB Conc 33.7 31.0 - 36.0 g/dl [facility] Red Cell Distribution Width 13.4 11.0 - 16.0 % [facility] Platelet Count 218 160 - 400 X10*3/uL [facility] Mean Platelet Volume 10.0 9.4 - 12.4 fL [facility] Neutrophils Percent Auto 34.1(L) 45 - 73 % [facility] Imm Gran Pct Auto 0.4 0.0 - 0.4 % [facility] Lymphocytes Percent Auto 52.2(H) 20 - 40 % [facility] Monocytes Percent Auto 9.0 2 - 11 % [facility] Eosinophils Percent Auto 3.9 0 - 4 % [facility] Basophils Percent Auto 0.4 0 - 2 % [facility] NRBC Pct Auto 0.0 0.0 - 0.2 /100WBC [facility] Neutrophils Absolute Auto 2.3 2.0 - 8.3 x10*3/uL [facility] Imm Gran Abs Auto 0.03 0.00 - 0.03 X10*3/uL [facility] Lymphocytes Absolute Auto 3.6 1.2 - 4.9 X10*3/uL [facility] Monocytes Absolute Auto 0.6 0.1 - 1.2 X10*3/uL [facility] Eosinophils Absolute Auto 0.3 0.0 - 0.4 X10*3/uL [facility] Basophils Absolute Auto 0.0 0.0 - 0.2 X10*3/uL [facility] NRBC Abs Auto 0.000 0.0 - 0.012 X10*3/uL [facility] 12/04/2022 10:1 5 AM EST 12/04/2022 10:15 AM EST [facility] External Provider LAB BLO OD ORDERABLES Final Result Performing Organization Address [facility] de Phone Number [facility] [address] [place] [address] [phone] * POCT Creatinine GFR (12/04/2022 9:49 AM EST) [facility] POCT Creatinine 0.9 0.5 - 1.4 mg/dL [facility] GFR POC >60 [facility] Comment:Chronic Kidney Disea se: Estimated GFR < 60 mL/min/1.95o5Towdle Kidney Disease: Estimated GFR < 15 mL/min/1.73m2 12/04/2022 9:49 AM EST 12/04/2022 4:06 PM EST Narrative [facility] - 12/04/2022 4:07 PM EST [id number] [facility] Exter nal Provider LAB POINT OF CARE TEST DOCKED DEVICE ORDERABLES Final Result Performing Organization Address [facility] de Phone Number [facility] [address] [place] [address] [phone] * (ABNORMAL) PROTHROMBIN TIME WHOLE BLD POC (12/03/2022 2:54 PM EST) Protime 69.3(H) 11.1 - 13.5 sec [facility] 12/03/2022 2:54 PM EST 12/03/2022 3:30 PM EST Result [facility] External Provider LAB BLO OD ORDERABLES Final Result Performing Organization Address [facility] de Phone Number [facility] [address] [place] [address] [phone] * (ABNORMAL) ~PT, ~INR - ANTI COAG CLINIC (12/03/2022 2:54 PM EST) Prothrombin Time INR 5.8(HH) 0.9 - 1.1 [facility] Comment:METER #: [id number] ctor NotifiedINTERNATIONAL NORMALIZED RATIO (INR) REFERENCE RANGES [...] PM EST 12/03/2022 3:30 PM EST Result [facility] External Provider LAB BLO OD ORDERABLES Final Result Performing Organization Address [facility] Co de Phone Number [facility] [address] [place] [address] [phone] * (ABNORMAL) PROTHROMBIN TIME WHOLE BLD POC (11/26/2022 2:46 PM EST) Protime 40.1(H) 11.1 - 13.5 sec [facility] 11/26/2022 2:46 PM EST 11/26/2022 2:47 PM EST Result [facility] External Provider LAB BLO OD ORDERABLES Final Result Performing Organization Address City/[facility]/ZIP Co de Phone Number [facility] [address] [place] [address] [phone] * (ABNORMAL) ~PT, ~INR - ANTI COAG CLINIC (11/26/2022 2:46 PM EST) Prothrombin Time INR 3.3(H) 0.9 - 1.1 [facility] Comment:METER #: [id number] TERNATIONAL NORMALIZED RATIO (INR) REFERENCE RANGES Reference [...] 2:46 PM EST 11/26/2022 2:47 PM EST [facility] External Provider LAB BLO OD ORDERABLES Final Result Performing Organization Address [facility] Co de Phone Number [facility] [address] [place] [address] [phone] * (ABNORMAL) PROTHROMBIN TIME WHOLE BLD POC (11/05/2022 3:33 PM EST) Protime 33.6(H) 11.1 - 13.5 sec [facility] 11/05/2022 3:33 PM EST 11/05/2022 3:35 PM EST [facility] External Provider LAB BLO OD ORDERABLES Final Result Performing Organization Address [facility]/ZIP Co de Phone Number [facility] [address] [place] [address] [phone] * (ABNORMAL) ~PT, ~INR - ANTI COAG CLINIC (11/05/2022 3:33 PM EST) Prothrombin Time INR 2.8(H) 0.9 - 1.1 [facility] Comment:METER #: [id number] TERNATIONAL NORMALIZED RATIO (INR) REFERENCE RANGES Reference [...] 3:33 PM EST 11/05/2022 3:35 PM EST [facility] External Provider LAB BLO OD ORDERABLES Final Result Performing Organization Address [facility] de Phone Number [facility] [address] [place] [address] [phone] * (ABNORMAL) PROTHROMBIN TIME WHOLE BLD POC (10/29/2022 3:11 PM EST) Protime 45.2(H) 11.1 - 13.5 sec [facility] 10/29/2022 3:11 PM EST 10/30/2022 7:55 AM EST [facility] External Provider LAB BLO OD ORDERABLES Final Result Performing Organization Address [facility] de Phone Number [facility] [address] [place] [address] [phone] * (ABNORMAL) ~PT, ~INR - ANTI COAG CLINIC (10/29/2022 3:11 PM EST) Prothrombin Time INR 3.8(H) 0.9 - 1.1 [facility] Comment:METER #: [id number] TERNATIONAL NORMALIZED RATIO (INR) REFERENCE RANGES Reference [...] 3:11 PM EST 10/30/2022 7:55 AM EST [facility] External Provider LAB BLO OD ORDERABLES Final Result [facility] [address] [place] [address] [phone] documented in this encounter Visit Diagnoses Diagnosis Pleural scarring- Primary Pleurisy without mention of effusion or current tuberculosis Abnormal chest CT Nonspecific (abnormal) findings on radiological and other examination of other intrathoracic organs documented in this encounter Care Teams Intervention Manager Relationship Specialty Start Date End Date Sancho Yoon MD [address] [place] [phone] PCP - General Internal Medicine 08/16/14 documented as of this encounter
--- OUTSIDE RECORDS SUMMARY | 2025-03-13 17:26 | XMS_ITS | Encounter Summary ---
Author Organization [employer] Address [address] [place] [address] Care Team Providers Care Nurse Special Name Role Phone Sancho Yoon MD Primary Care Provide r Reason for Visit * Reason Comments Med Refill Encounter Details Date Type Department Care Team ([facility] st Contact Info) Description 02/22/2025 Refill [facility] CHC MED & PEDS [address] [place], [place] [phone] Sancho Yoon MD [address] [place] [address] Other chronic pain Social History Tobacco Use [...] Description 03/15/2025 8:00 AM EDT Office Visit [facility] ADULT DENTAL [address] [place] [address] Yi Sanchez 05/09/2025 1:15 PM EDT Office Visit [facility] MEDICINE [address] [place] [address] Sancho Yoon MD [address] [place] [address] documented as of this encounter Visit Diagnoses Diagnosis Other chronic pain documented in this encounter Additional Health Concerns Assessment Noted Time PHQ-9 Depression Total Score: 0 09/29/20 24 9:48 AM EST documented as of this encounter Care Teams Nurse Special Relationship Specialty Start Date End Date Sancho Yoon MD [address] [place] [address] PCP - General Internal Medicine 08/16/14 documented as of this encounter
--- OUTSIDE RECORDS SUMMARY | 2025-03-13 17:26 | XMS_ITS | Encounter Summary ---
Author Organization [employer] Address [address] [facility] [address]t [place] [address] Care Team Providers Care Director Data Architecture Name Role Phone Sancho Yoon MD Primary Care Provide r Reason for Visit * Reason Onset Date Comments Med Refill 08/22/2024 Encounter Details Date Type Department Care Team ([facility] st Contact Info) Description 08/22/2024 Telephone [facility] MEDICINE [address] [place], [place] [phone] Sancho Yoon MD [address] [place], [place] [phone] Med Refill Social History Tobacco Use Types [...] immediate release tablet To be sent to: [facility] - [place], [place] - [address] [place] [address] documented in this encounter Plan of Treatment Upcoming Encounters Date Type Department Care Team (Late st Contact Info) Description 03/15/2025 8:00 AM EDT Office Visit [facility] ADULT DENTAL [address] [place] [address] Yi Sanchez 05/09/2025 1:15 PM EDT Office Visit [facility] MEDICINE [address] [place] [address] Sancho Yoon MD [address] [place] [address] documented as of this encounter Visit Diagnoses Not on filedocumented in this encounter Additional Health Concerns Assessment Noted Time PHQ-9 Depression Total Score: 3 03/23/20 23 1:07 PM EDT documented as of this encounter Care Teams Director Data Architecture Relationship Specialty Start Date End Date Sancho Yoon MD [address] [place] [address] PCP - General Internal Medicine 08/16/14 documented as of this encounter
--- OUTSIDE RECORDS SUMMARY | 2025-03-13 17:26 | XMS_ITS | Encounter Summary ---
Author Organization [employer] Address [address] [facility] 7t [place] [address] Care Team Providers Care Merchandising Execution Associate Name Role Phone Sancho Yoon MD Primary Care Provide r Reason for Visit * Reason Comments Med Refill Encounter Details Date Type Department Care Team ([facility] st Contact Info) Description 05/02/2024 Refill [facility] CHC MED & PEDS [address] [place], [place] [phone] Sancho Yoon MD [address] [place], [place] [phone] Other chronic pain Social History Tobacco Use [...] 8:00 AM EDT Office Visit [facility] ADULT DENTAL [address] [place] [address] Yi Sanchez 05/09/2025 1:15 PM EDT Office Visit [facility] MEDICINE [address] [place] [address] Sancho Yoon MD [address] [place] [address] documented as of this encounter Visit Diagnoses Diagnosis Other chronic pain documented in this encounter Additional Health Concerns Assessment Noted Time PHQ-9 Depression Total Score: 3 03/23/20 23 1:07 PM EDT documented as of this encounter Care Teams Merchandising Execution Associate Relationship Specialty Start Date End Date Sancho Yoon MD [address] [place] [address] PCP - General Internal Medicine 08/16/14 documented as of this encounter
--- OUTSIDE RECORDS SUMMARY | 2025-03-13 17:27 | XMS_ITS | Encounter Summary ---
Author Organization [employer] Address [address] [place] [address] Care Team Providers Care Manager Heart Failure Name Role Phone Sancho Yoon MD Primary Care Provide r Encounter Details Date Type Department Care Team ([facility] st Contact Info) Description 11/14/2024 Telephone [facility] MED & PEDS [address] [place], [place] [phone] Sancho Yoon MD [address] [place] [address] Social History Tobacco Use Types Packs/Day Years [...] Visit [facility] ADULT DENTAL [address] [place] [address] Yi Sanchez 05/09/2025 1:15 PM EDT Office Visit [facility] MEDICINE [address] [place] [address] Sancho Yoon MD [address] [place] [address] documented as of this encounter Visit Diagnoses Not on filedocumented in this encounter Additional Health Concerns Assessment Noted Time PHQ-9 Depression Total Score: 0 09/29/20 24 9:48 AM EST documented as of this encounter Care Teams Manager Heart Failure Relationship Specialty Start Date End Date Sancho Yoon MD [address] [place] [address] PCP - General Internal Medicine 08/16/14 documented as of this encounter
--- OUTSIDE RECORDS SUMMARY | 2025-03-13 17:27 | XMS_ITS | Encounter Summary ---
Author Organization [employer] Address [address] [place] [address] Care Team Providers Care Tetryl Screen Operator Name Role Phone Sancho Yoon MD Primary Care Provide r Reason for Visit * Reason Comments Med Refill Encounter Details Date Type Department Care Team ([facility] st Contact Info) Description 10/17/2024 Refill [facility] CHC MED & PEDS [address] [place], [place] [phone] Sancho Yoon MD [address] [place] [address] Other chronic pain Social History Tobacco Use [...] Office Visit [facility] ADULT DENTAL [address] [place] [address] Yi Sanchez 05/09/2025 1:15 PM EDT Office Visit [facility] MEDICINE [address] [place] [address] Sancho Yoon MD [address] [place] [address] documented as of this encounter Visit Diagnoses Diagnosis Other chronic pain documented in this encounter Additional Health Concerns Assessment Noted Time PHQ-9 Depression Total Score: 0 09/29/20 9:48 AM EST documented as of this encounter Care Teams Tetryl Screen Operator Relationship Specialty Start Date End Date Sancho Yoon MD [address] [place] [address] PCP - General Internal Medicine 08/16/14 documented as of this encounter
--- OUTSIDE RECORDS SUMMARY | 2025-03-13 17:27 | XMS_ITS | Encounter Summary ---
Author Organization [employer] Address [address] [place] [address] Care Team Providers Care Solar Photovoltaic Designer Name Role Phone Sancho Yoon MD Primary Care Provide r Reason for Visit * Reason Comments Med Refill Encounter Details Date Type Department Care Team ([facility] st Contact Info) Description 03/13/2025 Refill [facility] MEDICINE [address] [place], [place] [phone] Sancho Yoon MD [address] [place] [address] Essential hypertension Social History Tobacco Use Types Packs/Day Years [...] Visit [facility] ADULT DENTAL [address] [place] [address] Yi Sanchez 05/09/2025 1:15 PM EDT Office Visit [facility] MEDICINE [address] [place] [address] Sancho Yoon MD [address] [place] [address] documented as of this encounter Visit Diagnoses Diagnosis Essential hypertension Unspecified essential hypertension documented in this encounter Additional Health Concerns Assessment Noted Time PHQ-9 Depression Total Score: 0 09/29/20 24 9:48 AM EST documented as of this encounter Care Teams Solar Photovoltaic Designer Relationship Specialty Start Date End Date Sancho Yoon MD [address] [place] [address] PCP - General Internal Medicine 08/16/14 documented as of this encounter
--- OUTSIDE RECORDS SUMMARY | 2025-03-13 17:27 | XMS_ITS | Clinical Summary ---
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 30 capsule 3 025 Active lisinopril 10 MG tabletIndications:Esse ntial hypertension TAKE 1 TABLET BY MOUTH EVERY DAY IN THE MORNING 90 tablet 1 025 Active tamsulosin (Flomax) 0.4 MG 24 hr capsule TAKE 1 CAPSULE BY MOUTH AT BEDTIME 023 02/27 Discontinued( Reorder (will not trigger notification to Pharmacy)) lisinopril 10 MG tabletIndications:Esse ntial hypertension TAKE 1 TABLET BY MOUTH EVERY DAY IN THE MORNING 90 tablet 1 024 03/13 Discontinued rosuvastatin (Crestor) 5 MG tabletIndications:Pure hypercholesterolemia TAKE [...] 02/20 oxyCODONE (Roxicodone) 5 MG immediate release tabletIndications: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 Do not start before January 24, 2025. 84 tablet 025 02/22 Discontinued( Reorder (will not trigger notification to Pharmacy)) Active Problems Problem Noted Date Diagnosed Date [...] IVC filter and on warfarin -f at [place] [facility] -from records last INR 03/14/2023 [...] (10/23/2022 9:16 AM EST): Dx initially in [place], on exam ? small inguinal hernia pt [...] since 2000. He was evaluated extensively by community outreach specialist Dr. Beck who did a hypercoagulable [...] since 2000. He was evaluated extensively by community outreach specialist Dr. Beck who did a hypercoagulable [...] since 2000. He was evaluated extensively by community outreach specialist Dr. Beck who did a hypercoagulable [...] since 2000. He was evaluated extensively by community outreach specialist Dr. Beck who did a hypercoagulable work up that was unrevealing, although she believes pt has a hypercoagulable state and needs to be on coumadin life long. Pt continues to follow at the coumadin clinic Last INR was therapeutic. 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 On coumadin since 2000. Evaluated extensively by community outreach specialist Dr. Beck who did a hypercoagulable [...] with partial results. PT was referred to [facility] for evaluation and conservative treatment modalities. 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 pt now has a Narcotic contract with us. Pt was referred to [facility] Pain management s/p epidural [...] with partial results. PT was [facility] for evaluation and conservative treatment modalities. 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 pt now has a Narcotic contract with us. Pt was referred to [facility] Pain management s/p epidural [...] with partial results. [facility] was [facility] for evaluation and conservative treatment modalities. 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 pt now has a Narcotic contract with us. Pt was referred to [facility] Pain management and is [...] for a HDF He was admitted to [facility] from 07/15-07/17 for YUKI, [...] (07/30/2023 4:02 PM EDT): Ct done at [facility] 07/15/2023 showed: fracture of anterior wall of left maxillary sinus and left side of nasal bone with minimal displacement Pt was referred to the maxillofacial surgeon. I contacted them today they told me they had misfiled his referral, the access service representative of the office told me the [...] Encounters Date Type Department Care Team Description 03/13/2025 Orders Only GENERIC EXTERNAL DATA DEPARTMENT Provider, Generic External Data 03/13/2025 Refill [facility] [address] [place] [address] Sancho Yoon MD Essential hypertension 03/02/2025 Orders Only GENERIC EXTERNAL DATA DEPARTMENT Provider, Generic External Data 02/27/2025 Refill [facility] [address] [place] [address] Sancho Yoon MD Benign prostatic hyperplasia with nocturia 02/27/2025 Refill [facility] [address] [place] [address] Sancho Yoon MD Benign prostatic hyperplasia with lower urinary tract symptoms; Other obstructive and reflux uropathy 02/24/2025 Refill [facility] [address] [place] [address] Sancho Yoon MD Pure hypercholesterolemia 02/23/2025 Refill [facility] [address] [place] [address] Miesha Schwartz DO 02/22/2025 Refill [facility] [address] [place] [address] Sancho Yoon MD Other chronic pain 02/22/2025 Telephone [facility] [address] [place] [address] Sancho Yoon MD Appointment Request 02/22/2025 Refill [facility] [address] [place] [address] Sancho Yoon MD Other chronic pain 02/22/2025 Refill [facility] [address] [place] [address] Sancho Yoon MD Chronic right-sided low back pain with right-sided sciatica 01/26/2025 1:15 PM EDT Office Visit [facility] [address] [place] [address] Sancho Yoon MD Essential hypertension (Primary Dx); Mild intermittent asthma without complication; Presence of inferior vena cava filter; Pure hypercholesterolemia; Overweight (BMI 25.0-29.9); Dietary counseling; Exercise counseling; Right foot pain 01/26/2025 Travel 01/19/2025 Orders Only GENERIC EXTERNAL DATA DEPARTMENT Provider, Generic External Data 01/16/2025 Patient Outreach [facility] [address] [place] [address] Sancho Yoon MD Pre-visit Planning (Pre-visit planning - LVM ) 01/16/2025 Refill [facility] [address] [place] [address] 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, gem technician right-sided low back pain with right-sided sciatica 01/13/2025 Telephone [facility] [address] [place] [address] Sancho Yoon MD Med Refill 01/13/[address] [address] Sancho Yoon MD Chart Prep 01/12/2025 1:00 PM EST Clinical Support [facility] [address] [place] [address] 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 RN Chronic right-sided low back pain with right-sided sciatica 01/12/2025 Refill [facility] [address] [place] [address] 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, ELISEO Other chronic pain 01/12/2025 Telephone [facility] [address] [place] [address] 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, ELISEO 01/12/[address] [address] Sancho Yoon MD Med Refill 01/12/2025 Travel 01/11/2025 8:40 AM EST Office Visit [facility] [address] [place] [address] Chad Foley MD Palpitations (Primary Dx); Essential hypertension 01/11/2025 Travel 01/11/2025 Telephone [facility] [address] [place] [address] 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, RN poultry hatchery laborer appt 01/11/2025 Telephone [facility] [address] [place] [address] Sancho Yoon MD Medication Question 01/10/2025 Refill [facility] [address] [place] [address] 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, ELISEO Other chronic pain 01/10/2025 Telephone [facility] [address] [place] [address] Sancho Yoon MD Med Refill 01/09/2025 Orders Only GENERIC EXTERNAL DATA DEPARTMENT Provider, Generic External Data 12/28/2024 Telephone [facility] [address] [place] [address] Sancho Yoon MD CRITICAL RESULT CALL; Anticoagulation 12/28/2024 Orders Only GENERIC EXTERNAL DATA DEPARTMENT Provider, Generic External Data 12/21/2024 Telephone [facility] [address] [place] [address] 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, ELISEO 12/20/2024 Telephone [facility] [address] [place] [address] 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 RN 12/16/2024 Refill [facility] [address] [place] [address] Carisa Houston RN Chronic right-sided low back pain with right-sided sciatica (Primary Dx) 12/15/2024 8:40 AM EST Office Visit [facility] [address] [place] [address] Miesha Schwartz DO COVID-19; Influenza A 12/14/2024 Refill [facility] [address] [place] [address] 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, ELISEO Other chronic pain 12/14/2024 Telephone [facility] [address] [place] [address] Sancho Yoon MD Med Refill from Last 3 Months Immunizations Name Administration [...] Description 03/15/2025 8:00 AM EDT Office Visit [facility] [address] [place] [address] Yi Sanchez 05/09/2025 1:15 PM EDT Office Visit [facility] [address] [place] [address] Sancho Yoon MD [address] [place] [address] Health Maintenance Due Date Last Done Comments [...] Cancer Screening 02/17/2027 Lipid Panel 10/05/2029 10/05/2024, 0807/2022, 02/11/2021 DTaP/Tdap/Td Vaccines (4 - Td or [...] Comments PROTHROMBIN TIME WHOLE BLD POC Routine 03/13/2025 3:16 PM EDT ~PT, ~INR - ANTI COAG CLINIC Routine 03/13/2025 3:16 PM EDT PROTHROMBIN TIME WHOLE BLD POC Routine 03/02/2025 [...] 12/15/2024 9:00 AM EST COVID-19 Influenza A LIPID PANEL, STANDARD Routine 10/05/2024 10:25 AM [...] * (ABNORMAL) PROTHROMBIN TIME WHOLE BLD POC (03/13/2025 3:16 PM EDT) Only the most recent of5 resultswithin the time period is included. Protime 37.0(H) 11.1 - 13.5 sec [facility] 03/13/2025 3:16 PM EDT 03/13/2025 3:18 PM EDT us Generic External Data Provider LAB BLOOD ORDERAB LES Final Result Performing Organization Address [facility] de Phone Number [facility] [address] [place] [address] [phone] * (ABNORMAL) ~PT, ~INR - ANTI COAG CLINIC (03/13/2025 3:16 PM EDT) Only the most recent of5 resultswithin the time period is included. Prothrombin Time INR 3.1(H) 0.9 - 1.1 [facility] Comment:METER #: [id number] TERNATIONAL NORMALIZED RATIO (INR) REFERENCE RANGES Reference RangeFor patients not on anticoagulant therapy: 0.9 - 1.1INR ranges for oral anticoagulanttherapy:For prevention and treatment of venous thrombosis and pulmonary embolism: 2.0 - 3.0For acute myocardial infarction with aspirin therapy: 2.0 - 3.0For acute myocardial infarction without aspirin therapy: 3.0 - 4.0For patients with mechanical prosthetic heart valves: 2.5 - 3.5 03/13/2025 3:16 PM EDT 03/13/2025 3:18 PM EDT Generic External Data Provider LAB BLOOD ORDERAB LES Final Result Performing Organization Address [facility] de Phone Number [facility] [address] [place] [address] [phone] * XR Foot 3+ Views Right (01/26/2025 1:22 PM EDT) Anatomical Region Laterality Modality Lower Extremities, Foot Right Radiogra phic Imaging 01/26/2025 1:22 PM EDT Narrative 01/26/2025 2:07 PM EDT ?[facility] ?[address] ?[place] [address] ?XRay Report ? Signed ? Patient: Cerda Maninder,Clint ?MR#: [id number] ?? [id number] ? : 1955 ?Acct:[id number] ? Age/Sex: 69 / M ?ADM Date: /13/25 ? Loc: HO.HHCX ? Attending Dr: Sancho Bean MD ? Ordering Physician: Sancho Bean MD ?? Date of Service: 01/26/25 ?? Procedure(s): XR foot RT min 3V ?? Accession Number(s): [id number] ? cc: Sancho Bean MD ? EXAMINATION: [...] DD/ 1322 ? TD/TT: 01/26/25 1400 ? Hat Lining Paster: ? Procedure Note Homerter, Image - 01/26/[address] [address] XRay Report Signed Patient: Clint Beckford#: [id number] : 5Acct:[id number] Age/Sex: 69 / MADM Date: 01/26/25 Loc: HO.HHCX Attending Dr: Sancho Bean MD Ordering Physician: Sancho Bean MD Date of Service: 01/26/25 Procedure(s): XR foot RT min 3V Accession Number(s): [id number] cc: Sancho Bean MD EXAMINATION: XR FOOT [...] 01/26/25 1404 DD/ 1322 TD/TT: 01/26/25 1400 Hat Lining Paster: Sancho Mayberry MD IMG XR PROCEDURES Mamadou sanket Result - Final * POCT DU-14 Urine Drug Screen (01/12/2025 1:03 PM EST) Oxycodone Screen, Urine Positive Urine Urine specimen obtained by clean catch procedure / Unknown 01/12/2025 1:03 PM EST Narrative 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 RN - 01/12/2025 1:03 PM EST Lot# [id number] Exp: 07-05-26 Sancho Mayberry MD POINT OF CARE TEST EN TER/EDIT ORDERABLES Final Result * Influenza B (ID NOW Rapid Molecular) (12/15/2024 9:00 AM EST) Influenza B Negative Negative, Indeterminate [facility] Swab 12/15/2024 9:00 AM EST Miesha Schwartz DO POINT OF CARE TEST ENTER/MAAMDOU T ORDERABLES Final Result [facility] [address] [place] [phone] * (ABNORMAL) Influenza A (ID NOW Rapid Molecular) (12/15/2024 9:00 AM EST) Influenza A Positive( A) Negative, Indeterminate [facility] Swab 12/15/2024 9:00 AM EST Miesha Schwartz DO POINT OF CARE TEST ENTER/MAMADOU T ORDERABLES Final Result Performing Organization Address [facility]/ZIP Co de Phone Number [facility] [address] [place] [address] [phone] * (ABNORMAL) POCT Rapid COVID Ag (12/15/2024 9:00 AM EST) Rapid COVID Ag Positive [facility] Swab 12/15/2024 9:00 AM EST Miesha Schwartz DO POINT OF CARE TEST ENTER/MAMADOU T ORDERABLES Final Result Performing Organization Address City/[facility] Co de Phone Number [facility] [address] [place] [phone] * (ABNORMAL) Lipid Panel, Standard (10/05/2024 10:25 AM EST) Pathologist [facility] Triglycerides 179(H) <150 mg/dL [facility] Comment:Desirable Triglyceri de: less than 150 mg/dLBorderline High Triglyceride 150-199 mg/dLHigh Triglyceride: 200-499 mg/dLVery High Triglyceride: greater than or equal to 5OO mg/dL Cholesterol 171 <200 mg/dL [facility] Comment:Desirable Cholestero l: less than 200 mg/dLBorderline High Cholesterol: 200-239 mg/dLHigh Cholesterol: greater than 239 mg/dL LDL Cholesterol Calculated 94 <100 mg/dL [facility] Comment:Desirable LDL: less than 100 mg/dLNear Optimal/Above Optimal LDL: 110- 129 mg/dLBorderline High LDL: 130-159 mg/dLHigh LDL: 160-189 mg/dLVery High LDL: greater than or equal to 190 mg/dL HDL Cholesterol 42 >40 mg/dL [facility] Comment:Desirable HDL: great er than 40 mg/dL Note: This HDL assay may give artificially low results in patients with liver disease. Blood Venous blood specimen / Unknown 10/05/2024 10:25 AM EST 10/05/2024 11:28 AM EST Sancho Mayberry MD LAB BLOOD ORDERABLES Final Result [facility] [address] [place] [phone] [phone] * Colonoscopy (02/17/2022) Colonoscopy performed us Historical Provider HEALTH MAINTENANCE Edited Result - Final from Last 3 Months or Most Recently Relevant to Health Maintenance Insurance [facility] STANDARD [facility] ALF OPTIONS (HMO D-SNP) DENTAL - [facility] Care Teams Medical Officer Psychiatry Relationship Specialty Start Date End Date Sancho Yoon MD [address] [place] [address] PCP - General Internal Medicine 08/16/14
--- OUTSIDE RECORDS SUMMARY | 2025-03-13 17:27 | XMS_ITS | Encounter Summary ---
Author Organization [employer] Address [address] [facility] 7t [place] [address] Care Team Providers Care Loading Unit Operator Seating Name Role Phone Sancho Yoon MD Primary Care Provide r Reason for Visit * Reason Comments Med Refill Encounter Details Date Type Department Care Team ([facility] st Contact Info) Description 11/04/2024 Refill [facility] [address] [place], [place] [phone] Sancho Yoon MD [address] [place], [place] [phone] Erectile dysfunction, unspecified erectile dysfunction type Social [...] [facility] [address] [place] [address] Yi Sanchez 05/09/2025 1:15 PM EDT Office Visit [facility] [address] [place] [address] Sancho Yoon MD [address] [place] [address] documented as of this encounter Visit Diagnoses Diagnosis Erectile dysfunction, unspecified erectile dysfunction type documented in this encounter Additional Health Concerns Assessment Noted Time PHQ-9 Depression Total Score: 0 09/29/20 24 9:48 AM EST documented as of this encounter Care Teams Loading Unit Operator Seating Relationship Specialty Start Date End Date Sancho Yoon MD [address] [place] [address] PCP - General Internal Medicine 08/16/14 documented as of this encounter
--- OUTSIDE RECORDS SUMMARY | 2025-03-13 17:27 | XMS_ITS | Encounter Summary ---
Author Organization [employer] Address [address] [facility] 7[address] [place] [address] Care Team Providers Care Church History Professor Name Role Phone Sancho Yoon MD Primary Care Provide r Encounter Details Date Type Department Care Team ([facility] st Contact Info) Description 01/16/2023 Telephone [facility] [address] [place] [address] Sancho Yoon MD [address] [place] [address] Social History Tobacco Use Types Packs/Day Years [...] Team Provider with plan. Melody GOMES @ [phone] if needed. documented in this encounter Plan of Treatment Upcoming Encounters Date Type Department Care Team (Late st Contact Info) Description 03/15/2025 8:00 AM EDT Office Visit [facility] [address] [place] [address] Yi Sanchez 05/09/2025 1:15 PM EDT Office Visit [facility] [address] [place] [address] Sancho Yoon MD [address] [place] [address] documented as of this encounter Visit Diagnoses Not on filedocumented in this encounter Care Teams Church History Professor Relationship Specialty Start Date End Date Sancho Yoon MD [address] [place] [address] PCP - General Internal Medicine 08/16/14 documented as of this encounter
--- OUTSIDE RECORDS SUMMARY | 2025-03-13 17:27 | XMS_ITS | Encounter Summary ---
Author Organization [employer] Address [address] [facility] [place] [address] Care Team Providers Care Controls Project Engineer Name Role Phone Sancho Yoon MD Primary Care Provide r Encounter Details Date Type Department Care Team (Late st Contact Info) Description 03/13/2025 Orders Only GENERIC EXTERNAL DATA [...] Description 03/15/2025 8:00 AM EDT Office Visit [facility] [address] [place] [address] Yi Sanchez 05/09/2025 1:15 PM EDT Office Visit [facility] [address] [place] [address] Sancho Yoon MD [address] [place] [address] documented as of this encounter Procedures Procedure Name Priority Date/Time Associated Diagnosis Comments PROTHROMBIN TIME WHOLE BLD POC Routine 03/13/2025 3:16 PM EDT ~PT, ~INR - ANTI COAG CLINIC Routine 03/13/2025 3:16 PM EDT documented in this encounter Results * (ABNORMAL) PROTHROMBIN TIME WHOLE BLD POC (03/13/2025 3:16 PM EDT) Protime 37.0(H) 11.1 - 13.5 sec [facility] 03/13/2025 3:16 PM EDT 03/13/2025 3:18 PM EDT us Generic External Data Provider LAB BLOOD ORDERAB LES Final Result [facility] [address] [place] [phone] [phone] * (ABNORMAL) ~PT, ~INR - ANTI COAG CLINIC (03/13/2025 3:16 PM EDT) Prothrombin Time INR 3.1(H) 0.9 - 1.1 [facility] Comment:METER #: [id number] TERNATIONAL NORMALIZED RATIO (INR) REFERENCE RANGES Reference [...] Provider LAB BLOOD ORDERAB LES Final Result [facility] [address] [place] [phone] documented in this encounter Visit Diagnoses Not on filedocumented in this encounter Additional Health Concerns Assessment Noted Time PHQ-9 Depression Total Score: 0 09/29/20 24 9:48 AM EST documented as of this encounter Care Teams Controls Project Engineer Relationship Specialty Start Date End Date Sancho Yoon MD [address] [place] [address] PCP - General Internal Medicine 08/16/14 documented as of this encounter
== END 2025-03-13 15:31 | disposition home or self-care (01) ==
LOC: HO.ACS 14:36
PROVIDERS: PCP Internal Medicine; Visit Provider Internal Medicine Medical Oncology
DX: Z79.01 Long term (current) use of anticoagulants (principal)

== ENCOUNTER → 2025-03-13 14:36 | Outpatient (BNVA) | payer OTHER, SELFPAY | PROVIDERS: PCP Internal Medicine; Visit Provider Internal Medicine Medical Oncology | DX: I26.99 Other pulmonary embolism without acute cor pulmonale (principal); I82.409 Acute embolism and thrombosis of unspecified deep veins of unspecified lower extremity; Z79.01 Long term (current) use of anticoagulants; Z51.81 Encounter for therapeutic drug level monitoring | CPT/HCPCS: 85610; 99211 ==

== ENCOUNTER 2025-04-03 14:45 | Outpatient (AMB) | payer OTHER, SELFPAY ==
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
--- OUTSIDE RECORDS SUMMARY | 2025-04-03 14:49 | XMS_ITS | Encounter Summary ---
Author Organization [employer] Address 75 [facility] 7t [place] [address] Care Team Providers Care Dipper Fish Name Role Phone Sancho Yoon MD Primary Care Provide r Reason for Visit * Reason Onset Date Comments Med Refill 04/03/2025 Encounter Details Date Type Department Care Team ([facility] Contact Info) Description 04/03/2025 Refill [facility] [address] [place] [address] 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, ELISEO [address] [place] [address] Chronic right-sided low back pain with right-sided sciatica Social History Tobacco Use Types Packs/Day Years [...] Care Team (Late st Contact Info) Description 05/09/2025 1:15 PM EDT Office Visit [facility] [address] [place] [address] Sancho Yoon MD [address] [place] [address] 05/23/2025 11:00 AM EDT Office Visit [facility] [address] [place] [address] 09/18/2025 8:00 AM EST Office Visit [facility] ADULT DENTAL [address] [place] [address] Yi Sanchez documented as of this encounter Visit Diagnoses Diagnosis Chronic right-sided low back pain with right-sided sciatica documented in this encounter Additional Health Concerns Assessment Noted Time PHQ-9 Depression Total Score: 0 09/29/20 24 9:48 AM EST documented as of this encounter Care Teams Dipper Fish Relationship Specialty Start Date End Date Sancho Yoon MD [address] [place] [address] PCP - General Internal Medicine 08/16/14 documented as of this encounter
--- OUTSIDE RECORDS SUMMARY | 2025-04-03 14:49 | XMS_ITS | Encounter Summary ---
Author Organization [employer] Address 75 [facility] 7t h Floor [place] [id number] Care Team Providers Care Sustainment Logistics Analyst Name Role Phone Sancho Yoon MD Primary Care Provide r Reason for Visit * Reason Comments Med Refill Encounter Details Date Type Department Care Team ([facility] Contact Info) Description 02/27/2025 Refill [facility] [address] [place], [place] [phone] Sancho Yoon MD [address] [place], [place] [phone] Benign prostatic hyperplasia with lower urinary tract [...] Description 05/09/2025 1:15 PM EDT Office Visit [facility] [address] [place] [address] Sancho Yoon MD [address] [place] [address] 05/23/2025 11:00 AM EDT Office Visit [facility] [address] [place] [address] 09/18/2025 8:00 AM EST Office Visit [facility] ADULT DENTAL [address] [place] [address] Yi Sanchez documented as of this encounter Visit Diagnoses Diagnosis Benign prostatic hyperplasia with lower urinary tract symptoms Other obstructive and reflux uropathy documented in this encounter Additional Health Concerns Assessment Noted Time PHQ-9 Depression Total Score: 0 09/29/20 24 9:48 AM EST documented as of this encounter Care Teams Sustainment Logistics Analyst Relationship Specialty Start Date End Date Sancho Yoon MD [address] [place] [address] PCP - General Internal Medicine 08/16/14 documented as of this encounter
--- OUTSIDE RECORDS SUMMARY | 2025-04-03 14:49 | XMS_ITS ---
Author Organization [facility] Address [address] [place] [address] Care Team Providers Care Pastry Cook Helper Name Role Phone Raman Mayberry MD, Sancho Primary Care Provide Joshua Harvey [phone] REASON FOR VISIT RESCHEDULED APPT TOMORROW Encounters Encounter Location Date Provider Diagnosis [facility] [address] [place] [address] 12/21/2024 Joshua Valdivia Plan Of Treatment Next Appt Details Provider Name:Joshua Valdivia , 04/27/2025 10:20:00 AM, [address], [address], [place], [address], Progress Notes * VENANCIO LARRYDOB:[birth year] (69 yo M)Acc No.[id number]:12/21/2024 Patient:?VENANCIO LARRY :1955???Age:69 Y???Sex:Male Address:[address], [place] [address] * true * Date:? Generated for Printi maris/Megha/eTransmitting on:?04/03/2025 02:48 PM EDT
--- OUTSIDE RECORDS SUMMARY | 2025-04-03 14:49 | XMS_ITS | Encounter Summary ---
Author Organization [employer] Address 75 [facility] 7t [place] [address] Care Team Providers Care Business Architect Name Role Phone Sancho Yoon MD Primary Care Provide r Encounter Details Date Type Department Care Team ([facility] st Contact Info) Description 01/16/2023 Telephone [facility] 230 [place] [address] Sancho Yoon MD 230 [place] [address] Social History Tobacco Use Types Packs/Day Years [...] Telephone Encounter - Buffy Christian LPN - 01/16/2023 3:51 PM EST Critical Result call received at this time. INR 1.1 Patient just restarted Warfarin two days ago following spinal injection procedure. Warfarin today 10 mg. Sat.& Thursday 7.5mg and recheck on Thursday. Please update Team Provider with plan. Melody GOMES @ [phone] if needed. documented in this encounter Plan of Treatment Upcoming Encounters Date Type Department Care Team (Late st Contact Info) Description 05/09/2025 1:15 PM EDT Office Visit [facility] [address] [place] [address] Sancho Yoon MD [address] [place] [address] 05/23/2025 11:00 AM EDT Office Visit [facility] [address] [place] [address] 09/18/2025 8:00 AM EST Office Visit [facility] ADULT DENTAL [address] [place] [address] Yi Sanchez documented as of this encounter Visit Diagnoses Not on filedocumented in this encounter Care Teams Business Architect Relationship Specialty Start Date End Date Sancho Yoon MD [address] [place] [address] PCP - General Internal Medicine 08/16/14 documented as of this encounter
--- OUTSIDE RECORDS SUMMARY | 2025-04-03 14:49 | XMS_ITS ---
Author Organization [facility] Address [address] [place] [address] Care Team Providers Care Television Repairman Name Role Phone Raman Mayberry MD, Sancho Primary Care Provide r Joshua Hernandez Unavailable [phone] Allergies No Known Allergies REASON FOR VISIT [...] Encounter Location Date Provider Diagnosis [facility] [address] [place] [address] 12/22/2023 Joshua Valdivia History of hepatitis C [...] again for allowing me to proceed in [facility] care. I shall continue to keep you [...] again for allowing me to proceed in [facility] care. I shall continue to keep you [...] Name:Joshua Valdivia , 04/27/2025 10:20:00 AM, [address] [facility], [place] [address], [place], [address], Progress Notes * ELVIRA SUAREZ CLINTDOB:[birth year] (68 yo M)Acc No.[id number]:12/22/2023 Progress Notes Patient:?ELVIRA SUAREZ CLINT Provider:?Joshua Valdivia MD :1955???Age:68 Y???Sex:Male David e:12/22/2023 Address:[address] [place], [place] [id number] Pcp:Sancho sandhu MD Subjective: * Chief Complaints: [...] for 01/14/24 at 8:00 am [facility] 2nd floorfasting 8 hrs prior * 3.?History of adenomatous polyp of colon? Notes: Repeat colonoscopy in 2026?? * Procedure Codes:?3017F COLOR ECTAL CA SCREEN DOC [id number] TOBACCO [id number] BP SCR NOT PRFRM REC REASON NOS * Preventive Medicine:? ??Counseling:?Care goal follow-up plan:?Above Normal BMI Follow-up?Giving encouragement to exercise,?BMI management provided?Yes.? * Follow Up:?1 Year * * Sign off status: Completed true * Provider:?Joshua Valdivia MD Date:? 024 Generated for Jayla pollock/Megha/Arnieitting on:?04/03/2025 02:48 PM EDT History and Physical Notes * [...]
--- OUTSIDE RECORDS SUMMARY | 2025-04-03 14:49 | XMS_ITS | Encounter Summary ---
Author Organization [employer] Address [address] [facility] [address] 7t [place] [address] Care Team Providers Care Grinder Hand Name Role Phone Sancho Yoon MD Primary Care Provide r Reason for Visit * Reason Comments Med Refill Encounter Details Date Type Department Care Team ([facility] Contact Info) Description 02/22/2025 Refill [facility] & [facility]EDS [address] [place], [place] [phone] Sancho Yoon MD 230 [place] [address] Other chronic pain Social History Tobacco Use [...] Description 05/09/2025 1:15 PM EDT Office Visit [facility] MEDICINE [address] [place] [address] Sancho Yoon MD [address] [place] [address] 05/23/2025 11:00 AM EDT Office Visit [facility] 230 [place] [address] 09/18/2025 8:00 AM EST Office Visit [facility] ADULT DENTAL [address] [place] [address] Yi Sanchez documented as of this encounter Visit Diagnoses Diagnosis Other chronic pain documented in this encounter Additional Health Concerns Assessment Noted Time PHQ-9 Depression Total Score: 0 09/29/20 9:48 AM EST documented as of this encounter Care Teams Grinder Hand Relationship Specialty Start Date End Date Sancho Yoon MD [address] [place] [address] PCP - General Internal Medicine 08/16/14 documented as of this encounter
--- OUTSIDE RECORDS SUMMARY | 2025-04-03 14:50 | XMS_ITS | Encounter Summary ---
Author Organization [employer] Address 75 [facility] 7t [place] [address] Care Team Providers Care Revenue Stamp Clerk Name Role Phone Sancho Yoon MD Primary Care Provide r Encounter Details Date Type Department Care Team (Latest Contact Info) Description 04/16/2021 Abstract [facility] [...] Care Team ( st Contact Info) Description 05/09/2025 1:15 PM EDT Office Visit [facility] [address] [place] [address] Sancho Yoon MD [address] [place] [address] 05/23/2025 11:00 AM EDT Office Visit [facility] [address] [place] [address] 09/18/2025 8:00 AM EST Office Visit [facility] ADULT DENTAL [address] [place] [address] Yi Sanchez documented as of this encounter Visit Diagnoses Not on filedocumented in this encounter Care Teams Revenue Stamp Clerk Relationship Specialty Start Date End Date Sancho Yoon MD [address] [place] [address] PCP - General Internal Medicine 08/16/14 documented as of this encounter
--- OUTSIDE RECORDS SUMMARY | 2025-04-03 14:50 | XMS_ITS | Encounter Summary ---
Author Organization [employer] Address 75 [facility] 7t h Floor [place] [id number] Care Team Providers Care Cooker Casing Name Role Phone Sancho Yoon MD Primary Care Provide r Reason for Visit * Reason Onset Date Comments Appointment Request 04/05/2024 Encounter Details Date Type Department Care Team ([facility] Contact Info) Description 04/05/2024 Telephone [facility] 230 [place], [place] [phone] Sancho Yoon MD [address] [place], [place] [phone] Appointment Request Social History Tobacco Use Types [...] Miscellaneous Notes * Telephone Encounter - Tremayne Jose - 04/05/2024 3:15 PM EDT Tc from pt requesting call back wants to know if there is any upcoming FIRE ALARM INSPECTOR visits to be scheduled. Please contact pt at [phone]. documented in this encounter Plan of Treatment Upcoming Encounters Date Type Department Care Team (Late st Contact Info) Description 05/09/2025 1:15 PM EDT Office Visit [facility] MED[facility] [address] [place] [address] Sancho Yoon MD [address] [place] [address] 05/23/2025 11:00 AM EDT Office Visit [facility] [address] [place] [address] 09/18/2025 8:00 AM EST Office Visit [facility] ADULT DENTAL [address] [place] [address] Yi Sanchez documented as of this encounter Visit Diagnoses Not on filedocumented in this encounter Additional Health Concerns Assessment Noted Time PHQ-9 Depression Total Score: 3 03/23/20 23 1:07 PM EDT documented as of this encounter Care Teams Cooker Casing Relationship Specialty Start Date End Date Sancho Yoon MD [address] [place] [address] PCP - General Internal Medicine 08/16/14 documented as of this encounter
--- OUTSIDE RECORDS SUMMARY | 2025-04-03 14:50 | XMS_ITS | Encounter Summary ---
Author Organization [employer] Address 75 [facility] 7t [place] [address] Care Team Providers Care Furniture Designer Name Role Phone Sancho Yoon MD Primary Care Provide r Encounter Details Date Type Department Care Team (Late st Contact Info) Description 07/28/2023 Abstract [facility] ADULT DENTAL 230 [place] [address] Roger, Mildred 230 [place] [address] Social History Tobacco Use Types Packs/Day Years [...] Description 05/09/2025 1:15 PM EDT Office Visit [facility] MEDICINE [address] [place] [address] Sancho Yoon MD 230 [place] [address] 05/23/2025 11:00 AM EDT Office Visit [facility] [address] [place] [address], [place] [address] 09/18/2025 8:00 AM EST Office Visit [facility] ADULT DENTAL 230 [place] [address] Yi Sanchez documented as of this encounter Visit Diagnoses Not on filedocumented in this encounter Additional Health Concerns Assessment Noted Time PHQ-9 Depression Total Score: 3 03/23/20 23 1:07 PM EDT documented as of this encounter Care Teams Furniture Designer Relationship Specialty Start Date End Date Sancho Yoon MD 230 [place] [address] PCP - General Internal Medicine 08/16/14 documented as of this encounter
--- OUTSIDE RECORDS SUMMARY | 2025-04-03 14:50 | XMS_ITS | Encounter Summary ---
Author Organization [employer] Address 75 [facility] 7t [place] [address] Care Team Providers Care Polysomnography Tech Name Role Phone Sancho Yoon MD Primary Care Provide r Reason for Visit * Reason Onset Date Comments Appointment Request 03/22/2025 Encounter Details Date Type Department Care Team ([facility] Contact Info) Description 03/22/2025 Telephone [facility] MED[facility]INE 230 [place], [place] [phone] Sancho Yoon MD 230 [place] [address] Appointment Request Social History Tobacco Use Types [...] encounter Miscellaneous Notes * Telephone Encounter - Susana Limon - 03/22/2025 12:59 PM EDT Tc from pt requesting to reschedule appointment from 03/07 Please contact pt [phone] documented in this encounter Plan of Treatment Upcoming Encounters Date Type Department Care Team (Late st Contact Info) Description 05/09/2025 1:15 PM EDT Office Visit [facility] MED[facility]INE [address] [place] [address] Sancho Yoon MD [address] [place] [address] 05/23/2025 11:00 AM EDT Office Visit [facility] MED[facility] [address] [place] [address] 09/18/2025 8:00 AM EST Office Visit [facility] ADULT DENTAL [address] [place] [address] Yi Sanchez documented as of this encounter Visit Diagnoses Not on filedocumented in this encounter Additional Health Concerns Assessment Noted Time PHQ-9 Depression Total Score: 0 09/29/20 9:48 AM EST documented as of this encounter Care Teams Polysomnography Tech Relationship Specialty Start Date End Date Sancho Yoon MD 230 [place] [address] PCP - General Internal Medicine 08/16/14 documented as of this encounter
--- OUTSIDE RECORDS SUMMARY | 2025-04-03 14:50 | XMS_ITS | Encounter Summary ---
Author Organization [employer] Address 75 [facility] 7t [place] [address] Care Team Providers Care Breast Puller Name Role Phone Sancho Yoon MD Primary Care Provide r Reason for Visit * Reason Comments Med Refill Encounter Details Date Type Department Care Team ([facility] st Contact Info) Description 07/02/2024 Refill [facility] MEDICINE 230 [place], [place] [phone] Sancho Yoon MD 230 [place], [place] [phone] Mild intermittent asthma without complication Social History [...] 1:15 PM EDT Office Visit [facility] MEDICINE [address] [place] [address] Sancho Yoon MD 230 [place] [address] 05/23/2025 11:00 AM EDT Office Visit [facility] MEDICINE [address] [place] [address] 09/18/2025 8:00 AM EST Office Visit [facility] ADULT DENTAL 230 [place] [address] Yi Sanchez documented as of this encounter Visit Diagnoses Diagnosis Mild intermittent asthma without complication documented in this encounter Additional Health Concerns Assessment Noted Time PHQ-9 Depression Total Score: 3 03/23/20 23 1:07 PM EDT documented as of this encounter Care Teams Breast Puller Relationship Specialty Start Date End Date Sancho Yoon MD 230 [place] [address] PCP - General Internal Medicine 08/16/14 documented as of this encounter
--- OUTSIDE RECORDS SUMMARY | 2025-04-03 14:50 | XMS_ITS | Encounter Summary ---
Author Organization [employer] Address 75 [facility] 7t [place] [address] Care Team Providers Care Thermal Engineer Name Role Phone Sancho Yoon MD Primary Care Provide r Reason for Visit * Reason Onset Date Comments Med Refill 04/03/2025 Encounter Details Date Type Department Care Team ([facility] st Contact Info) Description 04/03/2025 Telephone [facility] MEDICINE 230 [place] [address] Sancho Yoon MD 230 [place] [address] Med Refill Social History Tobacco Use Types [...] encounter Miscellaneous Notes * Telephone Encounter - Jocelyn Mcdonald - 04/03/2025 8:23 AM EDT TC from pt requesting medication refill. Medications needing refill : oxyCODONE (Roxicodone) 5 MG immediate release tablet To be sent to: [facility] documented in this encounter Plan of Treatment Upcoming Encounters Date Type Department Care Team (Late st Contact Info) Description 05/09/2025 1:15 PM EDT Office Visit [facility] MEDICINE [address] [place] [address] Sancho Yoon MD 230 [place] [address] 05/23/2025 11:00 AM EDT Office Visit [facility] MEDICINE [address] [place] [address] 09/18/2025 8:00 AM EST Office Visit [facility] ADULT DENTAL [address] [place] [address] Yi Sanchez documented as of this encounter Visit Diagnoses Not on filedocumented in this encounter Additional Health Concerns Assessment Noted Time PHQ-9 Depression Total Score: 0 09/29/20 24 9:48 AM EST documented as of this encounter Care Teams Thermal Engineer Relationship Specialty Start Date End Date Sancho Yoon MD [address] [place] [address] PCP - General Internal Medicine 08/16/14 documented as of this encounter
--- OUTSIDE RECORDS SUMMARY | 2025-04-03 14:50 | XMS_ITS | Encounter Summary ---
Author Organization [employer] Address 75 [facility] 7t [place] [address] Care Team Providers Care Share Dairy Farmer Name Role Phone Sancho Yoon MD Primary Care Provide r Encounter Details Date Type Department Care Team (Latest Contact Info) Description 10/26/2019 Abstract [facility] Dental, Provider, DDS Social History Tobacco [...] Description 05/09/2025 1:15 PM EDT Office Visit [facility] MEDICINE [address] [place] [address] Sancho Yoon MD [address] [place] [address] 05/23/2025 11:00 AM EDT Office Visit [facility] MEDICINE [address] [place] [address] 09/18/2025 8:00 AM EST Office Visit [facility] ADULT DENTAL [address] [place] [address] Yi Sanchez documented as of this encounter Visit Diagnoses Not on filedocumented in this encounter Care Teams Share Dairy Farmer Relationship Specialty Start Date End Date Sancho Yoon MD [address] [place] [address] PCP - General Internal Medicine 08/16/14 documented as of this encounter
--- OUTSIDE RECORDS SUMMARY | 2025-04-03 14:50 | XMS_ITS | Encounter Summary ---
Author Organization [employer] Address 75 [facility] 7t h Floor [place] [phone] Care Team Providers Care Clearance Diver Name Role Phone Sancho Yoon MD Primary Care Provide r Reason for Visit * Reason Onset Date Comments Med Refill 04/19/2024 Encounter Details Date Type Department Care Team ([facility] st Contact Info) Description 04/19/2024 Telephone [facility] MEDICINE 230 [place], [place] [phone] Sancho Yoon MD 230 [place] [address] Med Refill Social History Tobacco Use Types [...] immediate release tablet To be sent to: [facility] documented in this encounter Plan of Treatment Upcoming Encounters Date Type Department Care Team (Late st Contact Info) Description 05/09/2025 1:15 PM EDT Office Visit [facility] MEDICINE [address] [place] [address] Sancho Yoon MD [address] [place] [address] 05/23/2025 11:00 AM EDT Office Visit [facility] MEDICINE [address] [place] [address] 09/18/2025 8:00 AM EST Office Visit [facility] ADULT DENTAL [address] [place] [address] Yi Sanchez documented as of this encounter Visit Diagnoses Not on filedocumented in this encounter Additional Health Concerns Assessment Noted Time PHQ-9 Depression Total Score: 3 03/23/20 23 1:07 PM EDT documented as of this encounter Care Teams Clearance Diver Relationship Specialty Start Date End Date Sancho Yoon MD [address] [place] [address] PCP - General Internal Medicine 08/16/14 documented as of this encounter
--- OUTSIDE RECORDS SUMMARY | 2025-04-03 14:50 | XMS_ITS | Encounter Summary ---
Author Organization [employer] Address 75 [facility] 7t h Floor [place] [id number] Care Team Providers Care Boat Wrapper Name Role Phone Sancho Yoon MD Primary Care Provide r Reason for Visit * Reason Onset Date Comments Med Refill 06/27/2024 Encounter Details Date Type Department Care Team ([facility] st Contact Info) Description 06/27/2024 Telephone [facility] MEDICINE 230 [place] [address] Sancho Yoon MD 230 [place] [address] Med Refill Social History Tobacco Use Types [...] immediate release tablet To be sent to: [facility] [place], [place] - [address] [place] [address] documented in this encounter Plan of Treatment Upcoming Encounters Date Type Department Care Team (Late st Contact Info) Description 05/09/2025 1:15 PM EDT Office Visit [facility] MED[facility]INE [address] [place] [address] Sancho Yoon MD 230 [place] [address] 05/23/2025 11:00 AM EDT Office Visit [facility] MED[facility]INE [address] [place] [address] 09/18/2025 8:00 AM EST Office Visit [facility] ADULT DENTAL [address] [place] [address] Yi Sanchez documented as of this encounter Visit Diagnoses Not on filedocumented in this encounter Additional Health Concerns Assessment Noted Time PHQ-9 Depression Total Score: 3 03/23/20 23 1:07 PM EDT documented as of this encounter Care Teams Boat Wrapper Relationship Specialty Start Date End Date Sancho Yoon MD [address] [place] [address] PCP - General Internal Medicine 08/16/14 documented as of this encounter
--- OUTSIDE RECORDS SUMMARY | 2025-04-03 14:50 | XMS_ITS | Encounter Summary ---
Author Organization [employer] Address 75 [facility] 7t h Floor [place] [id number] Care Team Providers Care Progress Clerk Name Role Phone Sancho Yoon MD Primary Care Provide r Reason for Visit * Reason Onset Date Comments Med Refill 08/22/2024 Encounter Details Date Type Department Care Team ([facility] st Contact Info) Description 08/22/2024 Telephone [facility] MEDICINE [address] [place] [address] Sancho Yoon MD [address] [place], [place] [phone] Med Refill Social History Tobacco Use Types [...] immediate release tablet To be sent to: [facility] - [place], [place] - [address] [place] [address] documented in this encounter Plan of Treatment Upcoming Encounters Date Type Department Care Team (Late st Contact Info) Description 05/09/2025 1:15 PM EDT Office Visit [facility] MEDICINE [address] [place] [phone] Sancho Yoon MD [address] [place] [address] 05/23/2025 11:00 AM EDT Office Visit [facility] MEDICINE [address] [place] [address] 09/18/2025 8:00 AM EST Office Visit [facility] ADULT DENTAL [address] [place] [address] Yi Sanchez documented as of this encounter Visit Diagnoses Not on filedocumented in this encounter Additional Health Concerns Assessment Noted Time PHQ-9 Depression Total Score: 3 03/23/20 23 1:07 PM EDT documented as of this encounter Care Teams Progress Clerk Relationship Specialty Start Date End Date Sancho Yoon MD [address] [place] [phone] PCP - General Internal Medicine 08/16/14 documented as of this encounter
--- OUTSIDE RECORDS SUMMARY | 2025-04-03 14:50 | XMS_ITS | Encounter Summary ---
Author Organization [employer] Address 75 [facility] 7t [place] [address] Care Team Providers Care Cooker Meal Name Role Phone Sancho Yoon MD Primary Care Provide r Reason for Visit * Reason Comments Med Refill Encounter Details Date Type Department Care Team ([facility] st Contact Info) Description 11/18/2023 Refill [facility] WALK[facility] [address] [place] [address] Chad Foley MD [address] [place] [address] Social History Tobacco Use Types Packs/Day Years [...] Description 05/09/2025 1:15 PM EDT Office Visit [facility] MEDICINE [address] [place] [address] Sancho Yoon MD [address] [place] [address] 05/23/2025 11:00 AM EDT Office Visit [facility] MEDICINE [address] [place] [address] 09/18/2025 8:00 AM EST Office Visit [facility] ADULT DENTAL [address] [place] [address] Yi Sanchez documented as of this encounter Visit Diagnoses Not on filedocumented in this encounter Additional Health Concerns Assessment Noted Time PHQ-9 Depression Total Score: 3 03/23/20 23 1:07 PM EDT documented as of this encounter Care Teams Cooker Meal Relationship Specialty Start Date End Date Sancho Yoon MD [address] [place] [address] PCP - General Internal Medicine 08/16/14 documented as of this encounter
--- OUTSIDE RECORDS SUMMARY | 2025-04-03 14:50 | XMS_ITS | Encounter Summary ---
Author Organization [employer] Address [address] [facility] 7t [place] [address] Care Team Providers Care Rawhide Bone Roller Name Role Phone Sancho Yoon MD Primary Care Provide r Encounter Details Date Type Department Care Team ([facility] st Contact Info) Description 09/14/2023 Telephone [facility] MEDICINE [address] [place] [address] Sancho Yoon MD [address] [place] [address] Social History Tobacco Use Types Packs/Day Years [...] t he electric, gas, oil or water [employer] threatened to shut off services in your [...] Description 05/09/2025 1:15 PM EDT Office Visit [facility] MEDICINE [address] [place] [address] Sancho Yoon MD [address] [place] [address] 05/23/2025 11:00 AM EDT Office Visit [facility] MEDICINE [address] [place] [address] 09/18/2025 8:00 AM EST Office Visit [facility] ADULT DENTAL [address] [place] [address] Yi Sanchez documented as of this encounter Visit Diagnoses Not on filedocumented in this encounter Additional Health Concerns Assessment Noted Time PHQ-9 Depression Total Score: 3 03/23/20 23 1:07 PM EDT documented as of this encounter Care Teams Rawhide Bone Roller Relationship Specialty Start Date End Date Sancho Yoon MD [address] [facility] [place] [address] PCP - General Internal Medicine 08/16/14 documented as of this encounter
--- OUTSIDE RECORDS SUMMARY | 2025-04-03 14:50 | XMS_ITS | Encounter Summary ---
Author Organization [employer] Address 75 [facility] 7t h Floor [place] [id number] Care Team Providers Care Elementary School Director Name Role Phone Sancho Yoon MD Primary Care Provide r Reason for Visit * Reason Onset Date Comments Med Refill 07/25/2024 Encounter Details Date Type Department Care Team ([facility] st Contact Info) Description 07/25/2024 Telephone [facility] MEDICINE [address] [place], [place] [phone] Sancho Yoon MD [address] [place] [address] Med Refill Social History Tobacco Use Types [...] be sent to: [facility] - [place], [place] - [address] [place] [address] documented in this encounter Plan of Treatment Upcoming Encounters Date Type Department Care Team (Late st Contact Info) Description 05/09/2025 1:15 PM EDT Office Visit [facility] MEDICINE [address] [place] [address] Sancho Yoon MD [address] [place] [address] 05/23/2025 11:00 AM EDT Office Visit [facility] MEDICINE [address] [place] [address] 09/18/2025 8:00 AM EST Office Visit [facility] ADULT DENTAL [address] [place] [address] Yi Sanchez documented as of this encounter Visit Diagnoses Not on filedocumented in this encounter Additional Health Concerns Assessment Noted Time PHQ-9 Depression Total Score: 3 03/23/20 23 1:07 PM EDT documented as of this encounter Care Teams Elementary School Director Relationship Specialty Start Date End Date Sancho Yoon MD [address] [place] [phone] PCP - General Internal Medicine 08/16/14 documented as of this encounter
--- OUTSIDE RECORDS SUMMARY | 2025-04-03 14:50 | XMS_ITS | Encounter Summary ---
Author Organization [employer] Address 75 [facility] 7t [place] [address] Care Team Providers Care Software Development Manager Name Role Phone Sancho Yoon MD Primary Care Provide r Encounter Details Date Type Department Care Team (Late st Contact Info) Description 10/29/2022 Orders Only [facility] MEDICINE [address] [place] [address] [phone] Sancho Yoon MD [address] [place] [address] [phone] Pleural scarring (Primary Dx); Abnormal chest CT [...] 1:15 PM EDT Office Visit [facility] MEDICINE [address] [place] [address] [phone] Sancho Yoon MD [address] [place], [place] [phone] 05/23/2025 11:00 AM EDT Office Visit [facility] MEDICINE [address] [place] [address] 09/18/2025 8:00 AM EST Office Visit [facility] ADULT DENTAL [address] [place] [address] Yi Sanchez documented as of this encounter [...] EST) Protime 42.3(H) 11.1 - 13.5 sec [facility] 12/18/2022 2:35 PM EST 12/18/2022 2:37 PM EST us [facility] External Provider LAB BLO OD ORDERABLES Final Result [facility] [address] [place] [phone] * (ABNORMAL) ~PT, ~INR - ANTI COAG CLINIC (12/18/2022 2:35 PM EST) Prothrombin Time INR 3.5(H) 0.9 - 1.1 [facility] Comment:METER #: [id number] TERNATIONAL NORMALIZED RATIO (INR) REFERENCE RANGES Reference [...] 2:35 PM EST 12/18/2022 2:37 PM EST [facility] External Provider LAB BLO OD ORDERABLES Final Result Performing Organization Address [facility] Co de Phone Number [facility] [address] [place] [address] [phone] * (ABNORMAL) PROTHROMBIN TIME WHOLE BLD POC (12/11/2022 2:35 PM EST) Protime 36.7(H) 11.1 - 13.5 sec [facility] 12/11/2022 2:35 PM EST 12/11/2022 2:36 PM EST [facility] External Provider LAB BLO OD ORDERABLES Final Result Performing Organization Address [facility] de Phone Number [facility] [address] [place] [address] [phone] * (ABNORMAL) ~PT, ~INR - ANTI COAG CLINIC (12/11/2022 2:35 PM EST) Prothrombin Time INR 3.1(H) 0.9 - 1.1 [facility] Comment:METER #: [id number] TERNATIONAL NORMALIZED RATIO (INR) REFERENCE RANGES Reference RangeFor patients not on anticoagulant therapy: 0.9 - 1.1INR ranges for oral anticoagulanttherapy:For prevention and treatment of venous thrombosis and pulmonary embolism: 2.0 - 3.0For acute myocardial infarction with aspirin therapy: 2.0 - 3.0For acute myocardial infarction without aspirin therapy: 3.0 - 4.0For patients with mechanical prosthetic heart valves: 2.5 - 3.5 12/11/2022 2:3 5 PM EST 12/11/2022 2:36 PM EST [facility] External Provider LAB BLO OD ORDERABLES Final Result Performing Organization Address [facility] Phone Number [facility] [address] [place] [phone] * (ABNORMAL) PROTHROMBIN TIME WHOLE BLD POC (12/04/2022 3:39 PM EST) Protime 56.8(H) 11.1 - 13.5 sec [facility] 12/04/2022 3:39 PM EST 12/04/2022 3:40 PM EST [facility] External Provider LAB BLO OD ORDERABLES Final Result Performing Organization Address [facility] Number [facility] [address] [place] [phone] * (ABNORMAL) ~PT, ~INR - ANTI COAG CLINIC (12/04/2022 3:39 PM EST) Prothrombin Time INR 4.7(H) 0.9 - 1.1 [facility] Comment:METER #: [id number] TERNATIONAL NORMALIZED RATIO (INR) REFERENCE RANGES Reference [...] 3:39 PM EST 12/04/2022 3:40 PM EST [facility] External Provider LAB BLO OD ORDERABLES Final Result Performing Organization Address [facility] Phone Number [facility] [address] [place] [address] [phone] * (ABNORMAL) Liver Fibrosis, FibroTest-ActiTest Panel (12/04/2022 10:15 AM EST) Liver Fibrosis Score 0.58 [facility] Liver Fibrosis Stage F2 [facility] Liver Fibrosis Interpretation SEE NOTE [facility] Comment:moderate fibrosisFib ro Test Score [...] (severe fibrosis) Nec Inflam Act Score 0.41 [facility] Nec Inflam Act Grade A1-A2 [facility] Nec Inflam Act Interpretation SEE NOTE [facility] Comment:minimal activityActi Test Score (a) Metavir Score a>=0 and a<=0.17 : A0 (no activity)a>0.17 and a<=0.29 : A0-A1 (no activity)a>0.29 and a<=0.36 : A1 (minimal activity)a>0.36 and a<=0.52 : A1-A2 (minimal activity)a>0.52 and a<=0.60 : A2 (significant activity)a>0.60 and a<=0.62 : A2-A3 (significant activity)a>0.62 and a<=1.00 : A3 (severe activity) NAC-Ekrnj-5-Macroglo bulin 275 106 - 279 mg/dL [facility] FIB-Haptoglobin 120 43 - 212 mg/dL [facility] FIB-Apolipoprotein A1 171 94 - 176 mg/dL [facility] FIB-Total Bilirubin 0.8 0.2 - 1.2 mg/dL [facility] FIB-GGT 64 3 - 70 U/L [facility] FIB-ALT 53(A) 9 - 46 U/L [facility] Reference ID [id number] [facility] Footnote SEE NOTE [facility] Comment: The reliability of results [...] and C.The performance characteristics have been determined by[employer] [facility]. Ithas not been cleared or approved by the U.S. Food and DrugAdministration. Performance characteristics refer to theanalytical performance of the test.[employer], the associated logo, [employer] and all associated [employer] holloway are theregistered trademarks of [employer]. All third partymarks - (R) and (TM) - are the property of their respectiveowners. (C) 2152-2599 [employer]. Allrights reserved.THIS TEST WAS PERFORMED AT:[employer] [id number] [place], [place] ??[phone] JERNIGAN MD,PHD,DAYDAY 12/04/2022 10:1 5 AM EST 12/04/2022 10:15 AM EST us [facility] External Provider LAB BLO OD ORDERABLES Final Result [facility] [address] [place] [address] [phone] * Alphafetoprotein, Tumor Marker (12/04/2022 10:15 AM EST) Alpha Fetoprotein 2.5 <6.1 ng/mL [facility] Comment:This test was perfor med using the Deacon Coulterchemiluminescent method. Values obtained fromdifferent assay methods cannot be usedinterchangeably. AFP levels, regardless ofvalue, should not be interpreted as absoluteevidence of the presence or absence of disease.THIS TEST WAS PERFORMED AT:[employer] [place] [address] ([address] [phone] PALOMARES MD 12/04/2022 10:1 5 AM EST 12/04/2022 10:15 AM EST [facility] External Provider LAB BLO OD ORDERABLES Final Result [facility] [address] [place] [phone] * (ABNORMAL) Hepatic Function Panel (12/04/2022 10:15 AM EST) Bilirubin, Total 1.0 0.0 - 1.0 mg/dL [facility] Bilirubin, Direct 0.3 0.0 - 0.5 mg/dL [facility] Aspartate Amino Transferase 35 5 - 37 U/L [facility] Alanine Aminotransferase 58(H) 0 - 40 U/L [facility] Total Protein 7.2 6.5 - 8.0 g/dL [facility] Albumin Level 4.2 3.5 - 5.0 g/dL [facility] Alkaline Phosphatase 63 39 - 117 U/L [facility] 12/04/2022 10:1 5 AM EST 12/04/2022 10:15 AM EST us [facility] External Provider LAB BLO OD ORDERABLES Final Result [facility] [address] [place] [address] [phone] * (ABNORMAL) CBC auto differential (12/04/2022 10:15 AM EST) White Blood Count 6.9 4.8 - 10.8 X10*3/uL [facility] Red Blood Count 4.93 4.60 - 5.80 X10*6/uL [facility] Hemoglobin 15.0 14.0 - 18.0 g/dl [facility] Hematocrit 44.5 42.0 - 52.0 % [facility] Mean Corpuscular Volume 90.3 80.0 - 98.0 fL [facility] Mean Corpuscular Hemoglobin 30.4 27.0 - 33.0 pg [facility] Mean Corpuscular HGB Conc 33.7 31.0 - 36.0 g/dl [facility] Red Cell Distribution Width 13.4 11.0 - 16.0 % [facility] Platelet Count 218 160 - 400 X10*3/uL [facility] Mean Platelet Volume 10.0 9.4 - 12.4 fL [facility] Neutrophils Percent Auto 34.1(L) 45 - 73 % [facility] Imm Gran Pct Auto 0.4 0.0 - 0.4 % [facility] Lymphocytes Percent Auto 52.2(H) 20 - 40 % [facility] Monocytes Percent Auto 9.0 2 - 11 % [facility] Eosinophils Percent Auto 3.9 0 - 4 % [facility] Basophils Percent Auto 0.4 0 - 2 % [facility] NRBC Pct Auto 0.0 0.0 - 0.2 /100WBC [facility] Neutrophils Absolute Auto 2.3 2.0 - 8.3 x10*3/uL [facility] Imm Gran Abs Auto 0.03 0.00 - 0.03 X10*3/uL [facility] Lymphocytes Absolute Auto 3.6 1.2 - 4.9 X10*3/uL [facility] Monocytes Absolute Auto 0.6 0.1 - 1.2 X10*3/uL [facility] Eosinophils Absolute Auto 0.3 0.0 - 0.4 X10*3/uL [facility] Basophils Absolute Auto 0.0 0.0 - 0.2 X10*3/uL [facility] NRBC Abs Auto 0.000 0.0 - 0.012 X10*3/uL [facility] 12/04/2022 10:1 5 AM EST 12/04/2022 10:15 AM EST [facility] External Provider LAB BLO OD ORDERABLES Final Result Performing Organization Address [facility] Phone Number [facility] [address] [place] [phone] * POCT Creatinine GFR (12/04/2022 9:49 AM EST) POCT Creatinine 0.9 0.5 - 1.4 mg/dL [facility] GFR POC >60 [facility] Comment:Chronic Kidney Disea se: Estimated GFR < 60 mL/min/[id number] Kidney Disease: Estimated GFR < 15 mL/min/1.73m2 12/04/2022 9:49 AM EST 12/04/2022 4:06 PM EST Narrative [facility] - 12/04/2022 4:07 PM EST [id number] [facility] Exter nal Provider LAB POINT OF CARE TEST DOCKED DEVICE ORDERABLES Final Result Performing Organization Address [facility] Co de Phone Number [facility] [address] [place] [phone] * (ABNORMAL) PROTHROMBIN TIME WHOLE BLD POC (12/03/2022 2:54 PM EST) Protime 69.3(H) 11.1 - 13.5 sec [facility] 12/03/2022 2:54 PM EST 12/03/2022 3:30 PM EST [facility] External Provider LAB BLO OD ORDERABLES Final Result Performing Organization Address [facility] de Phone Number [facility] [address] [place] [phone] * (ABNORMAL) ~PT, ~INR - ANTI COAG CLINIC (12/03/2022 2:54 PM EST) [facility] Prothrombin Time INR 5.8(HH) 0.9 - 1.1 [facility] Comment:METER #: [id number] ctor NotifiedINTERNATIONAL NORMALIZED RATIO (INR) REFERENCE RANGES [...] 2:54 PM EST 12/03/2022 3:30 PM EST [facility] External Provider LAB BLO OD ORDERABLES Final Result Performing Organization Address [facility] Co de Phone Number [facility] [address] [place] [phone] * (ABNORMAL) PROTHROMBIN TIME WHOLE BLD POC (11/26/2022 2:46 PM EST) Protime 40.1(H) 11.1 - 13.5 sec [facility] 11/26/2022 2:46 PM EST 11/26/2022 2:47 PM EST [facility] External Provider LAB BLO OD ORDERABLES Final Result Performing Organization Address City/[facility]/ZIP Co de Phone Number [facility] [address] [place] [phone] * (ABNORMAL) ~PT, ~INR - ANTI COAG CLINIC (11/26/2022 2:46 PM EST) Prothrombin Time INR 3.3(H) 0.9 - 1.1 [facility] Comment:METER #: [id number] TERNATIONAL NORMALIZED RATIO (INR) REFERENCE RANGES Reference [...] 2:46 PM EST 11/26/2022 2:47 PM EST [facility] External Provider LAB BLO OD ORDERABLES Final Result Performing Organization Address City/[facility]/ZIP Co de Phone Number [facility] [address] [place] [phone] * (ABNORMAL) PROTHROMBIN TIME WHOLE BLD POC (11/05/2022 3:33 PM EST) Protime 33.6(H) 11.1 - 13.5 sec [facility] 11/05/2022 3:33 PM EST 11/05/2022 3:35 PM EST [facility] External Provider LAB BLO OD ORDERABLES Final Result Performing Organization Address City/[facility]/ZIP Co de Phone Number [facility] [address] [place] [phone] * (ABNORMAL) ~PT, ~INR - ANTI COAG CLINIC (11/05/2022 3:33 PM EST) Prothrombin Time INR 2.8(H) 0.9 - 1.1 [facility] Comment:METER #: [id number] TERNATIONAL NORMALIZED RATIO (INR) REFERENCE RANGES Reference [...] 3:33 PM EST 11/05/2022 3:35 PM EST [facility] External Provider LAB BLO OD ORDERABLES Final Result Performing Organization Address [facility] Co de Phone Number [facility] [address] [place] [phone] * (ABNORMAL) PROTHROMBIN TIME WHOLE BLD POC (10/29/2022 3:11 PM EST) Protime 45.2(H) 11.1 - 13.5 sec [facility] 10/29/2022 3:11 PM EST 10/30/2022 7:55 AM EST [facility] External Provider LAB BLO OD ORDERABLES Final Result Performing Organization Address City/[facility] Co de Phone Number [facility] [address] [place] [phone] * (ABNORMAL) ~PT, ~INR - ANTI COAG CLINIC (10/29/2022 3:11 PM EST) Prothrombin Time INR 3.8(H) 0.9 - 1.1 [facility] Comment:METER #: [id number] TERNATIONAL NORMALIZED RATIO (INR) REFERENCE RANGES Reference [...] 3:11 PM EST 10/30/2022 7:55 AM EST [facility] External Provider LAB BLO OD ORDERABLES Final Result [facility] [address] [place] [phone] [phone] documented in this encounter Visit Diagnoses Diagnosis Pleural scarring- Primary Pleurisy without mention of effusion or current tuberculosis Abnormal chest CT Nonspecific (abnormal) findings on radiological and other examination of other intrathoracic organs documented in this encounter Care Teams Software Development Manager Relationship Specialty Start Date End Date Sancho Yoon MD [address] [place] [address] PCP - General Internal Medicine 08/16/14 documented as of this encounter
--- OUTSIDE RECORDS SUMMARY | 2025-04-03 14:50 | XMS_ITS ---
Author Organization [facility] Address [address] [place] [address] Care Team Providers Care Truck Leasing Manager Name Role Phone Raman Mayberry MD, Sancho Primary Care Provide Joshua Harvey [phone] REASON FOR VISIT Patient presents today for hx hep c Encounters Encounter Location Date Provider Diagnosis [facility] [address] [place] [address] 12/22/2024 Joshua Valdivia Plan Of Treatment Next Appt Details Provider Name:Joshua Valdivia , 04/27/2025 10:20:00 AM, [address], [address], [place], [address], Progress Notes * VENANCIO LARRYDOB:[birth year] (69 yo M)Acc No.[id number]:12/22/2024 Progress Notes Patient:?VENANCIO LARRY Provider:?Joshua Valdivia MD :1955???Age:69 Y???Sex:Male David e:12/22/2024 [address], [place], [id number] Pcp:Sancho sandhu MD Subjective: * Chief Complaints: [...] MD Date:? 025 Generated for Jayla pollock/Megha/Matt on:?04/03/2025 02:50 PM EDT
--- OUTSIDE RECORDS SUMMARY | 2025-04-03 14:50 | XMS_ITS | Encounter Summary ---
Author Organization [employer] Address [address] [facility] 7t [place] [address] Care Team Providers Care Cardiothoracic Physiotherapist Name Role Phone Sancho Yoon MD Primary Care Provide r Reason for Visit * Reason Comments Med Refill Encounter Details Date Type Department Care Team ([facility] st Contact Info) Description 10/21/2023 Refill [facility] MEDICINE [address] [place], [place] [phone] Sancho Yoon MD 230 [place], [place] [phone] Pure hypercholesterolemia Social History Tobacco Use Types [...] 05/09/2025 1:15 PM EDT Office Visit [facility] MEDICINE [address] [place] [address] Sancho Yoon MD [address] [place] [address] 05/23/2025 11:00 AM EDT Office Visit [facility] MEDICINE [address] [place] [address] 09/18/2025 8:00 AM EST Office Visit [facility] ADULT DENTAL [address] [place] [address] Yi Sanchez documented as of this encounter Visit Diagnoses Diagnosis Pure hypercholesterolemia documented in this encounter Additional Health Concerns Assessment Noted Time PHQ-9 Depression Total Score: 3 03/23/20 23 1:07 PM EDT documented as of this encounter Care Teams Cardiothoracic Physiotherapist Relationship Specialty Start Date End Date Sancho Yoon MD [address] [place] [address] PCP - General Internal Medicine 08/16/14 documented as of this encounter
--- OUTSIDE RECORDS SUMMARY | 2025-04-03 14:50 | XMS_ITS | Encounter Summary ---
Author Organization [employer] Address 75 [facility] 7t [place] [address] Care Team Providers Care Wrapper Layer And Examiner Soft Work Name Role Phone Sancho Yoon MD Primary Care Provide r Encounter Details Date Type Department Care Team (Latest Contact Info) Description 07/04/2022 Abstract [facility] [...] [facility] MEDICINE [address] [place] [address] Sancho Yoon MD 230 [place] [address] 05/23/2025 11:00 AM EDT Office Visit [facility] MEDICINE [address] [place] [address] 09/18/2025 8:00 AM EST Office Visit [facility] ADULT DENTAL [address] [place] [address] Yi Sanchez documented as of this encounter Visit Diagnoses Not on filedocumented in this encounter Care Teams Wrapper Layer And Examiner Soft Work Relationship Specialty Start Date End Date Sancho Yoon MD [address] [place] [address] PCP - General Internal Medicine 08/16/14 documented as of this encounter
--- OUTSIDE RECORDS SUMMARY | 2025-04-03 14:50 | XMS_ITS | Encounter Summary ---
Author Organization [employer] Address 75 [facility] 7t [place] [address] Care Team Providers Care Personnel Consultant Name Role Phone Sancho Yoon MD Primary Care Provide r Reason for Visit * Reason Comments Med Refill Encounter Details Date Type Department Care Team ([facility] Contact Info) Description 05/02/2024 Refill [facility] CHC MED & PEDS [address] [place], [place] [phone] Sancho Yoon MD 230 [place], [place] [phone] Other chronic pain Social History Tobacco Use [...] Description 05/09/2025 1:15 PM EDT Office Visit [facility] MEDICINE 230 [place] [address] Sancho Yoon MD 230 [place] [address] 05/23/2025 11:00 AM EDT Office Visit [facility] MEDICINE 230 [place] [address] 09/18/2025 8:00 AM EST Office Visit [facility] ADULT DENTAL 230 [place] [address] Yi Sanchez documented as of this encounter Visit Diagnoses Diagnosis Other chronic pain documented in this encounter Additional Health Concerns Assessment Noted Time PHQ-9 Depression Total Score: 3 03/23/20 23 1:07 PM EDT documented as of this encounter Care Teams Personnel Consultant Relationship Specialty Start Date End Date Sancho Yoon MD 230 [place] [address] PCP - General Internal Medicine 08/16/14 documented as of this encounter
--- OUTSIDE RECORDS SUMMARY | 2025-04-03 14:50 | XMS_ITS | Encounter Summary ---
Author Organization [employer] Address 75 [facility] 7t [place] [address] Care Team Providers Care Director Of Product Development Name Role Phone Sancho Yoon MD Primary Care Provide r Reason for Visit * Reason Comments Med Refill Encounter Details Date Type Department Care Team ([facility] st Contact Info) Description 10/21/2023 Refill [facility] MEDICINE 230 [place], [place] [phone] Sancho Yoon MD 230 [place], [place] [phone] Pure hypercholesterolemia Social History Tobacco Use Types [...] Description 05/09/2025 1:15 PM EDT Office Visit [facility] MEDICINE 230 [place] [address] Sancho Yoon MD [address] [place] [address] 05/23/2025 11:00 AM EDT Office Visit [facility] MEDICINE 230 [place] [address] 09/18/2025 8:00 AM EST Office Visit [facility] ADULT DENTAL [address] [place] [address] Yi Sanchez documented as of this encounter Visit Diagnoses Diagnosis Pure hypercholesterolemia documented in this encounter Additional Health Concerns Assessment Noted Time PHQ-9 Depression Total Score: 3 03/23/20 23 1:07 PM EDT documented as of this encounter Care Teams Director Of Product Development Relationship Specialty Start Date End Date Sancho Yoon MD [address] [place] [address] PCP - General Internal Medicine 08/16/14 documented as of this encounter
--- OUTSIDE RECORDS SUMMARY | 2025-04-03 14:50 | XMS_ITS | Encounter Summary ---
Author Organization [employer] Address [address] [facility] 7t [place] [address] Care Team Providers Care Platform Architect Name Role Phone Sancho Yoon MD Primary Care Provide r Encounter Details Date Type Department Care Team ([facility] st Contact Info) Description 03/03/2024 Telephone [facility] MEDICINE 230 [place], [place] [phone] Sancho Yoon MD 230 [place] [address] Social History Tobacco Use Types Packs/Day Years [...] t he electric, gas, oil or water [employer] threatened to shut off services in your [...] line call received from Kimberley at [facility] anticoag INR 5.2 rechecked with lab and 4.8 Warfarin on hold today Warfarin 5mg tomorrow and then 7.5mg Thursday and 5 mg on Thursday. Recheck Thursday Please update PCP as indicated. documented in this encounter Plan of Treatment Upcoming Encounters Date Type Department Care Team (Late st Contact Info) Description 05/09/2025 1:15 PM EDT Office Visit [facility] MEDICINE [address] [place] [address] aSncho Yoon MD 230 [place] [address] 05/23/2025 11:00 AM EDT Office Visit [facility] MEDICINE 230 [place] [address] 09/18/2025 8:00 AM EST Office Visit [facility] ADULT DENTAL 230 [place] [address] Yi Sanchez documented as of this encounter Visit Diagnoses Not on filedocumented in this encounter Additional Health Concerns Assessment Noted Time PHQ-9 Depression Total Score: 3 03/23/20 23 1:07 PM EDT documented as of this encounter Care Teams Platform Architect Relationship Specialty Start Date End Date Sancho Yoon MD [address] [place] [phone] PCP - General Internal Medicine 08/16/14 documented as of this encounter
--- OUTSIDE RECORDS SUMMARY | 2025-04-03 14:50 | XMS_ITS | Encounter Summary ---
Author Organization [employer] Address [address] [facility] 7t [place] [address] Care Team Providers Care Travel Ot Name Role Phone Sancho Yoon MD Primary Care Provide r Reason for Visit * Reason Comments Med Refill Encounter Details Date Type Department Care Team ([facility] st Contact Info) Description 08/19/2023 Refill [facility] MEDICINE 230 [place] [address] Sancho Yoon MD 230 [place], [place] [phone] Social History Tobacco Use Types Packs/Day Years Used Date Smoking Tobacco: Never Passive Smoke Exposure: Never Smokeless Tobacco: Never Alcohol Use Standard Drinks/Week Comments Not Currently 0 (1 standard drink = 0.6 oz pur e alcohol) Depression Answer Date Recorded Patient Health Questionnaire-9 Score 3 03/23/2023 Housing Stability Answer Date Recorded What is your housing situation today? I have nayjoel hernandez 08/23/[address] you [...] Description 05/09/2025 1:15 PM EDT Office Visit [facility] MEDICINE 230 [place] [address] Sancho Yoon MD 230 [place] [address] 05/23/2025 11:00 AM EDT Office Visit [facility] MEDICINE 230 [place] [address] 09/18/2025 8:00 AM EST Office Visit [facility] ADULT DENTAL 230 [place] [address] Yi Sanchez documented as of this encounter Visit Diagnoses Not on filedocumented in this encounter Additional Health Concerns Assessment Noted Time PHQ-9 Depression Total Score: 3 03/23/20 23 1:07 PM EDT documented as of this encounter Care Teams Travel Ot Relationship Specialty Start Date End Date Sancho Yoon MD 230 [place] [address] PCP - General Internal Medicine 08/16/14 documented as of this encounter
--- OUTSIDE RECORDS SUMMARY | 2025-04-03 14:50 | XMS_ITS | Encounter Summary ---
Author Organization [employer] Address 75 [facility] 7t [place] [address] Care Team Providers Care Paid Search Marketing Strategist Name Role Phone Sancho Yoon MD Primary Care Provide r Encounter Details Date Type Department Care Team ([facility] st Contact Info) Description 09/17/2023 Telephone [facility] MEDICINE 230 [place] [address] Sancho Yoon MD 230 [place] [address] Social History Tobacco Use Types Packs/Day Years [...] t he electric, gas, oil or water [email or web address] threatened to shut off services in your [...] EDT Critical Result line call received from [facility] with [facility] Anticoag. INR today 1.2 same as on Thursday. Low since Ortho injection hold. Warfarin today 10mg Tomorrow warfarin 10mg Thursday and Thursday 7.5 Recheck Thursday Please call Patient if Lovenox is indicated. Update PCP now please. documented in this encounter Plan of Treatment Upcoming Encounters Date Type Department Care Team (Late st Contact Info) Description 05/09/2025 1:15 PM EDT Office Visit [facility] MEDICINE [address] [place] [address] Sancho Yoon MD 230 [place] [address] 05/23/2025 11:00 AM EDT Office Visit [facility] MEDICINE 230 [place] [address] 09/18/2025 8:00 AM EST Office Visit [facility] ADULT DENTAL 230 [place] [address] Yi Sanchez documented as of this encounter Visit Diagnoses Not on filedocumented in this encounter Additional Health Concerns Assessment Noted Time PHQ-9 Depression Total Score: 3 03/23/20 23 1:07 PM EDT documented as of this encounter Care Teams Paid Search Marketing Strategist Relationship Specialty Start Date End Date Sancho Yoon MD [address] [place] [address] PCP - General Internal Medicine 08/16/14 documented as of this encounter
--- OUTSIDE RECORDS SUMMARY | 2025-04-03 14:50 | XMS_ITS | Encounter Summary ---
Author Organization [employer] Address [address] [facility] 7t [place] [address] Care Team Providers Care Brush Clearing Laborer Name Role Phone Sancho Yoon MD Primary Care Provide r Reason for Visit * Reason Comments Med Refill Encounter Details Date Type Department Care Team ([facility] Contact Info) Description 01/24/2024 Refill [facility] 230 [place] [address] Sancho Yoon MD 230 [place] [address] Social History Tobacco Use Types Packs/Day Years [...] Description 05/09/2025 1:15 PM EDT Office Visit [facility] MEDICINE 230 [place] [address] Sancho Yoon MD 230 [place] [address] 05/23/2025 11:00 AM EDT Office Visit [facility] MEDICINE 230 [place] [address] 09/18/2025 8:00 AM EST Office Visit [facility] ADULT DENTAL 230 [place] [address] Yi Sanchez documented as of this encounter Visit Diagnoses Not on filedocumented in this encounter Additional Health Concerns Assessment Noted Time PHQ-9 Depression Total Score: 3 03/23/20 23 1:07 PM EDT documented as of this encounter Care Teams Brush Clearing Laborer Relationship Specialty Start Date End Date Sancho Yoon MD 230 [place] [address] PCP - General Internal Medicine 08/16/14 documented as of this encounter
--- OUTSIDE RECORDS SUMMARY | 2025-04-03 14:50 | XMS_ITS | Encounter Summary ---
Author Organization [email or web address] Address [address] [facility] 7t [place] [address] Care Team Providers Care Junior Php Developer Name Role Phone Sancho Yoon MD Primary Care Provide r Reason for Visit * Reason Onset Date Comments New Med Request 09/01/2023 Encounter Details Date Type Department Care Team ([facility] Contact Info) Description 09/01/2023 Telephone [facility] MEDICINE 230 [place] [address] Sancho Yoon MD 230 [place], [place] [phone] New Med Request Social History Tobacco Use [...] 09/08/2023 8:54 AM EDT Received call from [facility] Coumadin clinic regarding INR, spoke to Yi. [...] procedure on 09/08/2023. Any questions contact pt. Jamaican speaker documented in this encounter Plan of Treatment Upcoming Encounters Date Type Department Care Team (Late st Contact Info) Description 05/09/2025 1:15 PM EDT Office Visit [facility] MEDICINE 230 [place] [address] Sancho Yoon MD 230 [place] [address] 05/23/2025 11:00 AM EDT Office Visit [facility] MEDICINE [address] [place] [address] 09/18/2025 8:00 AM EST Office Visit [facility] ADULT DENTAL 230 [place] [address] Yi Sanchez documented as of this encounter Visit Diagnoses Not on filedocumented in this encounter Additional Health Concerns Assessment Noted Time PHQ-9 Depression Total Score: 3 03/23/20 23 1:07 PM EDT documented as of this encounter Care Teams Junior Php Developer Relationship Specialty Start Date End Date Sancho Yoon MD 230 [place] [address] PCP - General Internal Medicine 08/16/14 documented as of this encounter
--- OUTSIDE RECORDS SUMMARY | 2025-04-03 14:50 | XMS_ITS | Encounter Summary ---
Author Organization [employer] Address 75 [facility] 7t h Floor [place] [id number] Care Team Providers Care Filter Tank Operator Name Role Phone Sancho Yoon MD Primary Care Provide r Reason for Visit * Reason Onset Date Comments Med Refill 01/10/2025 Encounter Details Date Type Department Care Team ([facility] st Contact Info) Description 01/10/[address] [facility] MEDICINE 230 [place] [address] Sancho Yoon MD 230 [place] [address] Med Refill Social History Tobacco Use Types [...] Miscellaneous Notes * Telephone Encounter - Wilmer Tray - 01/10/2025 9:26 AM EST TC from pt requesting medication refill. Medications needing refill : oxyCODONE (Roxicodone) 5 MG immediate release tablet To be sent to: [facility] documented in this encounter Plan of Treatment Upcoming Encounters Date Type Department Care Team (Late st Contact Info) Description 05/09/2025 1:15 PM EDT Office Visit [facility] MEDICINE [address] [place] [address] Sancho Yoon MD [address] [place] [address] 05/23/2025 11:00 AM EDT Office Visit [facility] MEDICINE [address] [place] [address] 09/18/2025 8:00 AM EST Office Visit [facility] ADULT DENTAL [address] [place] [address] Yi Sanchez documented as of this encounter Visit Diagnoses Not on filedocumented in this encounter Additional Health Concerns Assessment Noted Time PHQ-9 Depression Total Score: 0 09/29/20 9:48 AM EST documented as of this encounter Care Teams Filter Tank Operator Relationship Specialty Start Date End Date Sancho Yoon MD 230 [place] [address] PCP - General Internal Medicine 08/16/14 documented as of this encounter
--- OUTSIDE RECORDS SUMMARY | 2025-04-03 14:50 | XMS_ITS | Encounter Summary ---
Author Organization [employer] Address 75 [facility] 7t [place] [address] Care Team Providers Care Consulting Business Developer Name Role Phone Sancho Yoon MD Primary Care Provide r Reason for Visit * Reason Comments Med Refill Encounter Details Date Type Department Care Team ([facility] st Contact Info) Description 02/08/2024 Refill [facility] MEDICINE 230 [place], [place] [phone] Sancho Yoon MD 230 [place], [place] [phone] Other chronic pain Social History Tobacco Use [...] Description 05/09/2025 1:15 PM EDT Office Visit [facility] MEDICINE [address] [place] [address] Sancho Yoon MD 230 [place] [address] 05/23/2025 11:00 AM EDT Office Visit [facility] MEDICINE [address] [place] [address] 09/18/2025 8:00 AM EST Office Visit [facility] ADULT DENTAL 230 [place] [address] Yi Sanchez documented as of this encounter Visit Diagnoses Diagnosis Other chronic pain documented in this encounter Additional Health Concerns Assessment Noted Time PHQ-9 Depression Total Score: 3 03/23/20 23 1:07 PM EDT documented as of this encounter Care Teams Consulting Business Developer Relationship Specialty Start Date End Date Sancho Yoon MD [address] [place] [address] PCP - General Internal Medicine 08/16/14 documented as of this encounter
--- OUTSIDE RECORDS SUMMARY | 2025-04-03 14:51 | XMS_ITS | Encounter Summary ---
Author Organization [employer] Address 75 [facility] 7t [place] [address] Care Team Providers Care Hat Brim And Crown Laminating Operator Name Role Phone Sancho Yoon MD Primary Care Provide r Reason for Visit * Reason Comments Med Refill Encounter Details Date Type Department Care Team ([facility] Contact Info) Description 11/04/2024 Refill [facility] MEDICINE 230 [place], [place] [phone] Sancho Yoon MD 230 [place], [place] [phone] Erectile dysfunction, unspecified erectile dysfunction type Social [...] Description 05/09/2025 1:15 PM EDT Office Visit [facility] MEDICINE [address] [place] [address] Sancho Yoon MD [address] [place] [address] 05/23/2025 11:00 AM EDT Office Visit [facility] MEDICINE [address] [place] [address] 09/18/2025 8:00 AM EST Office Visit [facility] ADULT DENTAL [address] [place] [address] Yi Sanchez documented as of this encounter Visit Diagnoses Diagnosis Erectile dysfunction, unspecified erectile dysfunction type documented in this encounter Additional Health Concerns Assessment Noted Time PHQ-9 Depression Total Score: 0 09/29/20 24 9:48 AM EST documented as of this encounter Care Teams Hat Brim And Crown Laminating Operator Relationship Specialty Start Date End Date Sancho Yoon MD [address] [place] [address] PCP - General Internal Medicine 08/16/14 documented as of this encounter
--- OUTSIDE RECORDS SUMMARY | 2025-04-03 14:51 | XMS_ITS | Encounter Summary ---
Author Organization [employer] Address [address] [facility] [address] 7t [place] [address] Care Team Providers Care Clinical Data Specialist Name Role Phone Sancho Yoon MD Primary Care Provide r Reason for Visit * Reason Comments Med Refill Encounter Details Date Type Department Care Team ([facility] Contact Info) Description 10/17/[address] [facility] CHC MED & PEDS [address] [place], [place] [phone] Sancho Yoon MD 230 [place] [address] Other chronic pain Social History Tobacco Use [...] EDT Office Visit [facility] MEDICINE [address] [place] [address] Sancho Yoon MD [address] [place] [address] 05/23/2025 11:00 AM EDT Office Visit [facility] MEDICINE 230 [place] [address] 09/18/2025 8:00 AM EST Office Visit [facility] ADULT DENTAL [address] [place] [address] Yi Sanchez documented as of this encounter Visit Diagnoses Diagnosis Other chronic pain documented in this encounter Additional Health Concerns Assessment Noted Time PHQ-9 Depression Total Score: 0 09/29/20 24 9:48 AM EST documented as of this encounter Care Teams Clinical Data Specialist Relationship Specialty Start Date End Date Sancho Yoon MD [address] [place] [address] PCP - General Internal Medicine 08/16/14 documented as of this encounter
--- OUTSIDE RECORDS SUMMARY | 2025-04-03 14:51 | XMS_ITS | Encounter Summary ---
Author Organization [employer] Address [address] [facility] [address] 7t [place] [address] Care Team Providers Care Superintendent Of Schools Name Role Phone Sancho Yoon MD Primary Care Provide r Encounter Details Date Type Department Care Team ([facility] st Contact Info) Description 11/14/2024 Telephone [facility] [address] [place], [place] [phone] Sancho Yoon MD 230 [place], [place] [phone] Social History Tobacco Use Types Packs/Day Years [...] Description 05/09/2025 1:15 PM EDT Office Visit [facility] MEDICINE 230 [place] [address] Sancho Yoon MD 230 [place] [address] 05/23/2025 11:00 AM EDT Office Visit [facility] MEDICINE [address] [place] [address] 09/18/2025 8:00 AM EST Office Visit [facility] ADULT DENTAL [address] [place] [address] Yi Sanchez documented as of this encounter Visit Diagnoses Not on filedocumented in this encounter Additional Health Concerns Assessment Noted Time PHQ-9 Depression Total Score: 0 09/29/20 24 9:48 AM EST documented as of this encounter Care Teams Superintendent Of Schools Relationship Specialty Start Date End Date Sancho Yoon MD 230 [place] [address] PCP - General Internal Medicine 08/16/14 documented as of this encounter
--- OUTSIDE RECORDS SUMMARY | 2025-04-03 14:51 | XMS_ITS | Clinical Summary ---
Author Organization [employer] Address [address] [facility] [address] [place] [address] Care Team Providers Care Shearing Shed Worker Name Role Phone Sancho Yoon MD Primary Care Provide r Allergies No known active allergies Medications naloxone (Narcan) 4 mg/0.1 mL nasal spray Administer 0.1 mL into affected nostril(s). 2020 Active gabapentin (Neurontin) 300 MG capsuleIndications:Chr onic right-sided low back pain with right-sided sciatica TAKE 2 CAPSULES BY MOUTH THREE TIMES A DAY 180 capsule 3 2023 Active Additional Information Patient not taking.Reported on 03/15/2025 Menthol (Cepacol Sore Throat) 5.4 MG lozenge Dissolve 1 tablet in the mouth every 2 (two) hours if needed (sore throat). 20 lozenge 2023 Active sildenafil (Viagra) 100 MG tabletIndications:Erec tile dysfunction, unspecified erectile dysfunction type TAKE 1 TABLET 1 HOUR BEFORE SEXUAL RELATIONS ONCE DAILY NEEDED. 10 tablet 3 2023 Active Arnuity Ellipta 100 MCG/ACT inhalerIndications:Mil d intermittent asthma without complication INHALE 1 PUFF BY MOUTH EVERY DAY AT THE SAME TIME. RINSE MOUTH AFTER USING.. 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 30 tablet 2023 Active Additional Information Patient not taking.Reported on 03/15/2025 Ventolin HFA 108 (90 Base) MCG/ACT inhaler INHALE 2 PUFFS BY MOUTH EVERY 4 HOURS NEEDED FOR WHEEZING OR SHORTNESS OF BREATH 18 g 1 2023 Active warfarin (Coumadin) 5 MG tabletIndications:Pres ence of inferior vena cava filter TAKE 1 AND 1/2 TABLETS TO 2 TABLETS BY MOUTH EVERY DAY DIRECTED 60 tablet 3 2023 Active guaiFENesin (Mucinex) 600 MG 12 hr tablet Take 2 tablets (1,200 mg) by mouth if needed in the morning and at bedtime for cough. Do not crush, chew, or split. 30 tablet 12/15 Active Additional Information Patient not taking.Reported on 03/15/2025 loratadine (Claritin) 10 MG tablet Take 1 tablet (10 mg) by mouth Once per day. 30 tablet 3 12/15 Active Additional Information Patient not taking.Reported on 03/15/2025 fluticasone (Flonase) 50 MCG/ACT nasal spray Administer 2 sprays into each nostril Once per day. Shake gently. Before first use, prime pump. After use, clean tip and replace cap. 16 g 3 12/15 Active acetaminophen (Tylenol 8 Hour) 650 MG ER tablet TAKE 1 TABLET BY MOUTH EVERY 8 HOURS NEEDED FOR MILD PAIN. DO NOT BREAK, CRUSH, DISSOLVE OR CHEW. 30 tablet 1 2024 Active rosuvastatin (Crestor) 5 MG tabletIndications:Pure hypercholesterolemia TAKE 1 TABLET BY MOUTH AT BEDTIME 90 tablet 2024 Active tamsulosin (Flomax) 0.4 MG 24 hr capsuleIndications:Darius ign prostatic hyperplasia with nocturia Take 1 capsule (0.4 mg) by mouth at bedtime. 30 capsule 3 2024 Active lisinopril 10 MG tabletIndications:Esse ntial hypertension TAKE 1 TABLET BY MOUTH EVERY DAY IN THE MORNING 90 tablet 1 2024 Active oxyCODONE (Roxicodone) 5 MG immediate release tabletIndications:Line Tester linnea right-sided low back pain with right-sided sciatica Take 1 tablet (5 mg) by mouth every 8 (eight) hours if needed for severe pain for up to 14 days. Do not start before March 22, 2025. 42 tablet 04/05 Active lisinopril 10 MG tabletIndications:Esse ntial hypertension TAKE 1 TABLET BY MOUTH EVERY DAY IN THE MORNING 90 tablet 1 03/13 Discontinued oxyCODONE (Roxicodone) 5 MG immediate release tabletIndications:Line Tester linnea right-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 84 tablet 03/20 Discontinued( Reorder (will not trigger notification to Pharmacy)) Active Problems Problem Noted Date Diagnosed Date Long-term current use of opiate analgesic 2024 Overview (03/30/2025): Medication: oxycodone 5mg TID Indication: chronic right sided low back pain w/ sciatica Last PERMIT SPECIALIST Agreement: 07/14/24 Assessment & Plan (03/30/2025 12:11 PM EDT): Timeline: - 03/28/25: Initial group visit - utox/pill count wnl Overweight (BMI 25.0-29.9) 01/26/2025 Assessment & Plan [...] IVC filter and on warfarin -f at [facility] -from records last INR 03/14/2023 [...] since 2000. He was evaluated extensively by exhibition specialist Dr. Beck who did a hypercoagulable [...] since 2000. He was evaluated extensively by exhibition specialist Dr. Beck who did a hypercoagulable [...] since 2000. He was evaluated extensively by exhibition specialist Dr. Beck who did a hypercoagulable [...] since 2000. He was evaluated extensively by exhibition specialist Dr. Beck who did a hypercoagulable work up that was unrevealing, although she believes pt has a hypercoagulable state and needs to be on coumadin life long. Pt continues to follow at the coumadin clinic Last INR was therapeutic. 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 On coumadin since 2000. Evaluated extensively by exhibition specialist Dr. Beck who did a hypercoagulable [...] right-karli ed sciatica 07/05/2015 Assessment & Plan (03/30/2025 12:09 PM EDT): -Good engagement and participation with Group Medical Visit model, today was first visit. -Encouraged multifactorial approach to pain control including pharm and non- pharm modalities -UTOX and Pill count as expected Assessment & Plan (06/02/2023 2:51 PM EDT): [...] contract with us. Pt was referred to [facility] Pain management s/p [...] contract with us. Pt was referred to [facility] Pain management s/p [...] contract with us. Pt was referred to [facility] Pain management and [...] PRN, Continue Oxycodone as prescribed [facility] with plan Pt gives a [...] for a HDF He was admitted to [facility] from 07/15-07/17 for [...] (07/30/2023 4:02 PM EDT): Ct done at [facility] 07/15/2023 showed: fracture of anterior wall of left maxillary sinus and left side of nasal bone with minimal displacement Pt was referred to the maxillofacial surgeon. I contacted them today they told me they had misfiled his referral, the marketing sales representative of the office told me [...] Encounters Date Type Department Care Team Description 04/03/2025 Refill [facility] PEDS [address] [place] [address] 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 RN Chronic right-sided low back pain with right-sided sciatica 04/03/2025 Telephone [facility] MED[facility] [address] [place] [address] Sancho Yoon MD Med Refill 03/28/2025 11:00 AM EDT Office Visit [facility] [address] [place] [address] Janis Cm, BATH HOUSE ATTENDANT Chronic right-sided low back pain with right-sided sciatica (Primary Dx); Long-term current use of opiate analgesic 03/28/2025 Travel 03/22/2025 Travel 03/22/2025 Telephone [facility] MED [facility] PEDS [address] [place] [address] 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, RN 03/22/2025 Telephone [facility] [address] [place] [address] Sancho Yoon MD Appointment Request 03/20/2025 Refill [facility] PED[facility] [address] [place] [address] 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, dispenser operator right-sided low back pain with right-sided sciatica 03/20/2025 Telephone [facility] [address] [place] [address] Sancho Yoon MD Appointment Request; Med Refill 03/17/2025 Telephone [facility] PED[facility] [address] [place] [address] Sancho oYon MD Med Refill 03/15/2025 8:00 AM EDT Office Visit [facility] ADULT DENTAL [address] [place] [address] Yi Sanchez Dental calculus (Primary Dx); Dental plaque 03/13/2025 Orders Only GENERIC EXTERNAL DATA DEPARTMENT Provider, Generic External Data 03/13/2025 Refill [facility] [address] [place] [address] Sancho Yoon MD Essential hypertension 03/02/2025 Orders Only GENERIC EXTERNAL DATA DEPARTMENT Provider, Generic External Data 02/27/2025 Refill [facility] [address] [place] [address] Sancho Yoon MD Benign prostatic hyperplasia with nocturia 02/27/2025 Refill [facility] [address] [place] [address] Sancho Yoon MD Benign prostatic hyperplasia with lower urinary tract symptoms; Other obstructive and reflux uropathy 02/24/2025 Refill [facility] [address] [place] [address] Sancho Yoon MD Pure hypercholesterolemia 02/23/2025 Refill [facility] [address] [place] [address] Miesha Schwartz DO 02/22/2025 Refill [facility] [address] [place], [place] [phone] Sancho Yoon MD Other chronic pain 02/22/2025 Telephone [facility] [address] [place] [address] Sancho Yoon MD Appointment Request 02/22/2025 Refill [facility] [address] [place] [address] Sancho Yoon MD Other chronic pain 02/22/2025 Refill [facility] [address] [place] [address] Sancho Yoon MD Chronic right-sided low back pain with right-sided sciatica 01/26/2025 1:15 PM EDT Office Visit [facility] [address] [place] [address] Sancho Yoon MD Essential hypertension (Primary Dx); Mild intermittent asthma without complication; Presence of inferior vena cava filter; Pure hypercholesterolemia; Overweight (BMI 25.0-29.9); Dietary counseling; Exercise counseling; Right foot pain 01/26/2025 Travel 01/19/2025 Orders Only GENERIC EXTERNAL DATA DEPARTMENT Provider, Generic External Data 01/16/2025 Patient Outreach [facility] [address] [place] [address] Sancho Yoon MD Pre-visit Planning (Pre-visit planning - LVM ) 01/16/2025 Refill [facility] [address] [place] [address] 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, dispenser operator right-sided low back pain with right-sided sciatica 01/13/2025 Telephone [facility] [address] [place] [address] Sancho Yoon MD Med Refill 01/13/2025 Telephone [facility] [address] [place] [address] Sancho Yoon MD Chart Prep 01/12/2025 1:00 PM EST Clinical Support [facility] [address] [place] [address] 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 RN Chronic right-sided low back pain with right-sided sciatica 01/12/2025 Refill [facility] PED[facility] [address] [place] [address] 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 RN Other chronic pain 01/12/2025 Telephone [facility] [address] [place] [address] 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 RN 01/12/2025 Telephone [facility] [address] [place] [address] Sancho Yoon MD Med Refill 01/12/2025 Travel 01/11/2025 8:40 AM EST Office Visit [facility] [address] [place] [address] Chad Foley MD Palpitations (Primary Dx); Essential hypertension 01/11/2025 Travel 01/11/2025 Telephone [facility] [address] [place] [address] 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, ELISEO field service specialist appt 01/11/2025 Telephone [facility] [address] [place] [address] Sancho Yoon MD Medication Question 01/10/2025 Refill [facility] [address] [place] [address] 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 RN Other chronic pain 01/10/2025 Telephone [facility] [address] [place] [address] Sancho Yoon MD Med Refill 01/09/2025 Orders Only GENERIC EXTERNAL DATA DEPARTMENT Provider, Generic External Data from Last 3 Months Immunizations Immunization Administration Dates Next Due Hep A, Adult [...] Sign Reading Time Taken Comments Blood Pressure 142/88 03/15/2025 8:14 AM EDT Pulse 90 01/26/2025 12:46 PM EDT [...] Description 05/09/2025 1:15 PM EDT Office Visit [facility] [address] [place] [address] Sancho Yoon MD [address] [place] [address] 05/23/2025 11:00 AM EDT Office Visit [facility] [address] [place] [address] 09/18/2025 8:00 AM EST Office Visit [facility] ADULT DENTAL [address] [place], [place] [phone] Yi Sanchez Health Maintenance Due Date Last Done Comments CT Colonography 1955 FIT DNA/Cologuard 1955 FIT 1955 FOBT 1955 Sigmoidoscopy 1955 Hepatitis A Vaccines (2 of 2 - Risk 2-dose series) 12/04/2002 06/03/2002 Hepatitis B Vaccines (3 of 3 - Risk 3-dose series) 01/22/2010 09/26/2009, 07/25/2009 RSV Patients and Patients Aged 60 years or older (1 - Risk 60-74 years 1-dose series) 2014 COVID-19 Vaccine ( season) 2025 09/29/2024, 09/10/2023, 08/22/2022, Additional history exists Dental X-Ray: Bitewings 09/08/2025 09/07/20 24, 07/22/2023, 07/04/2022 Dental Oral Exam 09/15/2025 03/15/2025, , 02/02/2024, Additional history exists Dental Prophylaxis 09/15/2025 03/15/2025, 1 , 02/02/2024, Additional history exists Alcohol/Substance Use Screening 09/29/2025 09/29/2024 Depression Screening 09/29/2025 09/29/2024, 09/29/20 SDOH Screening 09/29/2025 09/29/2024 Tobacco Screening 03/15/2026 03/15/2025 Dental X-Ray: Full Mouth 07/23/2026 07/22/2023, 10/16 Colonoscopy 02/17/2027 02/17/2022 Colorectal Cancer Screening 02/17/2027 Lipid Panel 10/05/2029 10/05/2024, 08/0 07/2022, 02/11/2021 DTaP/Tdap/Td Vaccines (4 - Td or Tdap) 03/12/2034 03/12/2024, 04/02/2021, 05/11/2018, Additional history exists Zoster Vaccines Completed 10/16/2020, 07/18, 07/05/2015 Pneumococcal Vaccine: 50+ Years Completed 03/23/2023, 05/11/2018, 08/25/2012 Influenza Vaccine Completed 09/29/2024, , 07/30/2023, Additional history exists HIB Vaccines Aged Out No longer eligi ble based on patient's age to complete this topic HPV Vaccines Aged Out No longer eligi ble based on patient's age to complete this topic IPV Vaccines Aged Out No longer eligi ble based on patient's age to complete this topic Meningococcal B Vaccine Aged Out No l onger eligible based on patient's age to complete [...] Name Priority Date/Time Associated Diagnosis Comments POCT DU-14 URINE DRUG SCREEN Routine 03/28/2025 11:47 AM EDT Chronic right-sided low back pain with right-sided sciatica CASE PRESENTATION, DETAILED AND EXTENSIVE TREATMENT PLANNING Routine 03/15/2025 8:00 AM EDT ORAL HYGIENE INSTRUCTIONS Routine 03/15/2025 8:00 AM EDT Dental calculus Dental plaque PERIODIC ORAL EVALUATION - ESTABLISHED PATIENT Routine 03/15/2025 8:00 AM EDT PROPHYLAXIS - ADULT Routine 03/15/2025 8 :00 AM EDT Dental calculus Dental plaque PROTHROMBIN TIME WHOLE BLD POC Routine 03/13/2025 [...] [facility]IC Routine 01/09/2025 3:01 PM EST LIPID PANEL, STANDARD Routine 10/05/2024 10:25 AM EST Pure hypercholesterolemia BITEWINGS - 4 RADIOGRAPHIC IMAGES Routine 09/07/2024 8:00 AM EDT INTRAORAL - COMPLETE SERIES OF RADIOGRAPHIC IMAGES Routine 07/22/2023 3:00 PM EDT Periodontal disease Dental calculus HM COLONOSCOPY Routine 02/17/2022 from Last 3 Months or Most Recently Relevant to Health Maintenance Results * POCT DU-14 Urine Drug Screen (03/28/2025 11:47 AM EDT) Only the most recent of2 resultswithin the time period is included. Oxycodone Screen, Urine Positive Urine Urine specimen obtained by clean catch procedure / Unknown 03/28/2025 11:47 AM EDT Narrative 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 RN - 03/28/2025 11:47 AM EDT .UTOX cup Lot#[id number] Exp. 07/05/26 Internal Pass Control Janis DUNLAPP POINT OF CARE TEST ENTER/EDIT ORDERABLES Final Result * (ABNORMAL) PROTHROMBIN TIME WHOLE BLD POC (03/13/2025 3:16 PM EDT) Only the most recent of4 resultswithin the time period is included. Pathologist [facility] Protime 37.0(H) 11.1 - 13.5 sec [facility] 03/13/2025 3:16 PM EDT 03/13/2025 3:18 PM EDT Generic External Data Provider LAB BLOOD ORDERAB LES Final Result [facility] [address] [place] [phone] * (ABNORMAL) ~PT, ~INR - ANTI COAG CLINIC (03/13/2025 3:16 PM EDT) Only the most recent of4 resultswithin the time period is included. Prothrombin Time INR 3.1(H) 0.9 - 1.1 [facility] Comment:METER #: [id number] TERNATIONAL NORMALIZED RATIO (INR) REFERENCE RANGES Reference [...] Provider LAB BLOOD ORDERAB LES Final Result [facility] [address] [place] [address] [phone] * XR Foot 3+ Views Right (01/26/2025 1:22 PM EDT) Anatomical Region Laterality Modality Lower Extremities, Foot Right Radiogra phic Imaging 01/26/2025 1:22 PM EDT Narrative 01/26/2025 2:07 PM EDT ?[facility] ?[address] ?[place] [address] ?XRay Report ? Signed ? Patient: Clint Beckford ?MR#: [id number] ?? [id number] ? : 1955 ?Acct:[id number] ? Age/Sex: 69 / M ?ADM Date: 01/26/25 ? Loc: HO.HHCX ? Attending Dr: Sancho Bean MD ? Ordering Physician: Sancho Bean MD ?? Date of Service: 01/26/25 ?? Procedure(s): XR foot RT min 3V ?? Accession Number(s): [id number] ? cc: Sancho Bean MD ? EXAMINATION: [...] ??Joshua Cooper MD ??01/26/2025 02:04 PM EDT ?? RP ? Dictated By: ?Joshua Cooper MD ? Signed By: ?<Electronically signed by Joshua Cooper MD in OV> ?01/26/25 1404 ? DD/ 1322 ? TD/TT: 01/26/25 1400 ? Sight Mounter: ? Procedure Note Romero, Image - 01/26/2025 [facility] [address] [place] [address] XRay Report Signed Patient: Clint BeckfordMR#: [id number] : 5Acct:[id number] Age/Sex: 69 / MADM Date: 01/26/25 Loc: HO.HHCX Attending Dr: Sancho Bean MD Ordering Physician: Sancho Bean MD Date of Service: 01/26/25 Procedure(s): XR foot RT min 3V Accession Number(s): [id number] cc: Sancho Bean MD EXAMINATION: XR FOOT [...] 01/26/25 1404 DD/ 1322 TD/TT: 01/26/25 1400 Sight Mounter: us Sancho Mayberry MD IMG XR PROCEDURES Kareem sanket Result - Final * (ABNORMAL) Lipid Panel, Standard (10/05/2024 10:25 AM EST) Triglycerides 179(H) <150 mg/dL [facility] Comment:Desirable Triglyceri de: less than 150 mg/dLBorderline High Triglyceride 150-199 mg/dLHigh Triglyceride: 200-499 mg/dLVery High Triglyceride: greater than or equal to 5OO mg/dL Cholesterol 171 <200 mg/dL [facility] Comment:Desirable Cholestero l: less than 200 mg/dLBorderline High Cholesterol: 200-239 mg/dLHigh Cholesterol: greater than 239 mg/dL LDL Cholesterol Calculated 94 <100 mg/dL [facility] Comment:Desirable LDL: less than 100 mg/dLNear Optimal/Above Optimal LDL: 110- 129 mg/dLBorderline High LDL: 130-159 mg/dLHigh LDL: 160-189 mg/dLVery High LDL: greater than or equal to 190 mg/dL HDL Cholesterol 42 >40 mg/dL [facility] Comment:Desirable HDL: great er than 40 mg/dL Note: This HDL assay may give artificially low results in patients with liver disease. 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
--- NOTE | 2025-04-03 14:58 | MHC.OFFVISCO ---
Intake Intake Visit Reasons: Anticoagulation Allergies No Known Drug Allergies [NO KNOWN DRUG ALLERGIES] Allergy (Mild, Verified 04/03/25 14:45) NONE Medication List - Last Reconciled 04/03/25 by Zainab Rodriguez RN acetaminophen ER 650 mg PO Q8H PRN albuterol sulfate 90 mcg/actuation (ProAir HFA) 2 puffs inhalation Q4-6H PRN fluoride (sodium) 1.1% (PreviDent 5000 Booster Plus) dental BID fluticasone propionate 110 mcg/actuation (Flovent HFA) 1 puff PO BID fluticasone propionate 50 mcg/actuation sprays intranasal gabapentin q pm hydrocortisone acetate (Anusol-HC) 25 mg [place] BID lisinopril 10 mg PO DAILY 30 days loratadine 10 mg PO DAILY meclizine 25 mg PO DAILY PRN oxycodone 5 mg PO Q8H PRN rosuvastatin 5 mg PO BEDTIME sildenafil (Viagra) 100 mg PO DAILY PRN tamsulosin 0.4 mg PO DAILY 90 days tizanidine 2 mg PO Q6H PRN warfarin 7.5 mg See Protocol PO DAILY@1800 Nursing Note INR: 3.3?out of therapeutic range 2.5-3.0 Medications and supplements reviewed Patient status: well Medications or supplements: no changes Diet: usual diet for pt Denies any signs and symptoms of bleeding or clotting or unusual bruising Bleeding, bruising, clotting discussed Nutritional guidance given: to have a serving of greens today (flora) Dose: decrease this weeks dose by 2.5mg (see daily dosing sheet) then resume usual dose of 7.5mg X 4 days and 5mg X 3 days F/U INR Date: 3 weeks?? Patient verbalizing understanding of instructions given. Anti-Coag Initial Assessment Social Hx Patient Tobacco Use Status: Never used Tobacco alcohol intake: former Alcohol intake frequency: does not drink Coding Level of Care Code Est Patient Level 1 Diagnoses Current use of anticoagulant therapy Z79.01 Results AMB INR Fingerstick AMB INR Fingerstick 3.3 Last Edit by Zainab Rodriguez RN on 04/03/25 14:56 interface delay Assessment & Plan Assessment & Plan (1) Current use of anticoagulant therapy: Code(s): Z79.01 - nursing home (current) use of anticoagulants Category: Medical
[2025-04-03 15:06] LABS: ~PT, ~INR - Anti Coag Clinic 3.3 (0.9-1.1)
== END 2025-04-03 15:03 | disposition home or self-care (01) ==
LOC: HO.ACS 14:45
PROVIDERS: PCP Internal Medicine; Visit Provider Internal Medicine Medical Oncology
DX: Z79.01 Long term (current) use of anticoagulants (principal)

== ENCOUNTER → 2025-04-03 14:45 | Outpatient (BNVA) | payer OTHER, SELFPAY | PROVIDERS: PCP Internal Medicine; Visit Provider Internal Medicine Medical Oncology | DX: I26.99 Other pulmonary embolism without acute cor pulmonale (principal); I82.409 Acute embolism and thrombosis of unspecified deep veins of unspecified lower extremity; Z79.01 Long term (current) use of anticoagulants; Z51.81 Encounter for therapeutic drug level monitoring | CPT/HCPCS: 85610; 99211 ==

== ENCOUNTER 2025-04-18 04:29 | Emergency (ER) | payer OTHER, SELFPAY ==
--- NOTE | ~2025-04-18 | XR_ITS ---
CLINICAL HISTORY: covid 1 view chest x-ray. Comparison: None Findings: The lungs are adequately expanded. No focal consolidation. No effusion or pneumothorax. Cardiac and mediastinal contours are within normal limits. No acute osseous abnormality. Metallic densities project over the upper chest. Impression: No focal consolidation or overt edema. This document has been electronically signed by: Carlos Reddy MD on 04/18/2025 06:44:42
[2025-04-18 04:39] VITALS: BP 148/100; PULSE 94; RESP 20; TEMP 36.6; O2SAT 99; BMI 28.5
[2025-04-18 05:02] LABS: Basophils Percent Auto 0.4 % (0-2); Eosinophils Absolute Auto 0.1 X10*3/uL (0.0-0.4); Eosinophils Percent Auto 2.6 % (0-4); Hematocrit 40.2 % (42.0-52.0); Hemoglobin 14.2 g/dl (14.0-18.0); Imm Gran Abs Auto 0.01 X10*3/uL (0.00-0.03); Imm Gran Pct Auto 0.2 % (0.0-0.4); Lymphocytes Absolute Auto 1.5 X10*3/uL (1.2-4.9); Lymphocytes Percent Auto 28.7 % (20-40); MANUAL DIFF FLAG NO; Mean Corpuscular HGB Conc 35.3 g/dl (31.0-36.0); Mean Corpuscular Volume 87.8 fL (80.0-98.0); Mean Platelet Volume 9.5 fL (9.4-12.4); Monocytes Absolute Auto 0.6 X10*3/uL (0.1-1.2); Monocytes Percent Auto 11.9 % (2-11); Neutrophils Percent Auto 56.2 % (45-73); Platelet Count 185 X10*3/uL (160-400); Red Blood Count 4.58 X10*6/uL (4.60-5.80); Red Cell Distribution Width 13.4 % (11.0-16.0); White Blood Count 5.4 X10*3/uL (4.8-10.8)
[2025-04-18 05:25] LABS: Appearance Urine Clear; Color Urine Yellow; Glucose Urine UA Negative (Negative); Leukocyte Esterase Urine Negative (Negative); Nitrite Urine Negative (Negative); UMIC TRIGGER UACC YES; Urine Blood Small (1+) (Negative); Urine Ketones Negative (Negative); Urine Protein 30 (1+) mg/dL (Neg-Trace)
[2025-04-18 05:25] LABS: Albumin Level 4.5 g/dL (3.5-5.0); Alkaline Phosphatase 63 U/L (39-117); Anion Gap 10 (12-20); Aspartate Amino Transferase 47 U/L (5-37); Bilirubin Total 0.7 mg/dL (0.0-1.0); Blood Urea Nitrogen 12 mg/dL (9-16); Calcium 8.8 mg/dL (8.4-10.2); Carbon Dioxide 28 mmol/L (22-29); Chloride 106 mmol/L (96-108); Creatinine Clr Calc Pharmacy 72.2; Estimated Glomerular Filt Rate > 60; Glucose Random 118 mg/dL (60-115); Lipase 48 U/L (8-78); Potassium 3.8 mmol/L (3.3-5.1); Sodium 140 mmol/L (135-145); Total Protein 7.9 g/dL (6.5-8.0)
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
[2025-04-18 05:35] LABS: Alanine Aminotransferase 46 U/L (0-40)
[2025-04-18 05:37] LABS: Bacteria Urine None Seen (None Seen); Hyaline Casts Urine 0-2 /LPF (0-2); RBC Urine 0-2 /HPF (0-2); Squamous Epithelial Cell Urine 0-2 /HPF (0-2); WBC Urine 0-5 /HPF (0-5)
[2025-04-18 05:40] LABS: Influenza A PCR NEGATIVE (Negative); Influenza B PCR NEGATIVE (Negative); Resp Syncy Virus RNA Qual PCR NEGATIVE (Negative); SARS COV2 PCR INHOUSE POSITIVE (Negative)
[2025-04-18 07:14] VITALS: BP 165/94; PULSE 70; RESP 18; TEMP 36.8; O2SAT 95
[2025-04-18 07:17] VITALS: BP 165/94; PULSE 70; RESP 18; TEMP 36.8; O2SAT 95
== END 2025-04-18 07:20 | disposition home or self-care (01) ==
PROVIDERS: Emergency Provider Internal Medicine; PCP Internal Medicine
DX: U07.1 COVID-19 (principal); R50.9 Fever, unspecified; I10 Essential (primary) hypertension; E78.5 Hyperlipidemia, unspecified; J45.909 Unspecified asthma, uncomplicated
CPT/HCPCS: 0241U; 71045; 80053; 81001; 83690; 85025; 99283; 99284

== ENCOUNTER → 2025-04-18 06:28 | Outpatient (BNV) | payer OTHER, SELFPAY | PROVIDERS: Emergency Provider Internal Medicine; PCP Internal Medicine; Visit Provider Radiology Vascular & Interventional Radiology | DX: U07.1 COVID-19 (principal) | CPT/HCPCS: 71045 ==

== ENCOUNTER 2025-04-27 11:56 | Outpatient (REF) | payer OTHER, SELFPAY ==
[2025-04-27 12:56] LABS: INTERNATIONAL NORM RATIO 1.5 (0.9-1.1); Prothrombin Time 16.9 SEC (10.9-12.4)
[2025-04-27 13:02] LABS: Alanine Aminotransferase 50 U/L (0-40); Albumin Level 4.7 g/dL (3.5-5.0); Alkaline Phosphatase 61 U/L (39-117); Aspartate Amino Transferase 44 U/L (5-37); Bilirubin Direct 0.1 mg/dL (0.0-0.5); Bilirubin Total 0.4 mg/dL (0.0-1.0); Total Protein 7.8 g/dL (6.5-8.0)
--- OUTSIDE RECORDS SUMMARY | 2025-04-27 14:03 | XMS_ITS ---
Author Organization [facility] Address [address] [place] [address] Care Team Providers Care Assignment Officer Name Role Phone Raman Mayberry MD, Sancho Primary Care Provide Joshua Harvey [phone] REASON FOR VISIT RESCHEDULED APPT TOMORROW Encounters Encounter Location Date Provider Diagnosis [facility] [address] [place] [address] 12/21/2024 Joshua Valdivia Plan Of Treatment Next Appt Details Provider Name:Joshua Valdivia , 05/01/2026 09:30:00 AM, [address], [address], [place], [address], Progress Notes * VENANCIO LARRYDOB:[birth year] (69 yo M)Acc No.[id number]:12/21/2024 Patient:?VENANCIO LARRY :1955???Age:69 Y???Sex:Male [address], [place] [address] * true * Date:? Generated for Printi ng/Fakennyg/eTransmitting on:?04/27/2025 02:03 PM EDT
[2025-04-28 10:15] LABS: Alpha Fetoprotein 2.3 ng/mL (<6.1)
[2025-04-29 14:34] LABS: HCV Log PCR <1.18 NOT DETECTED Log IU/mL (NOT DETECTED); HepC Viral Load <15 NOT DETECTED IU/mL (NOT DETECTED)
[2025-05-06 02:58] LABS: FIB-ALT 34 U/L (9-46); FIB-Alpha-2-Macroglobulin 259 mg/dL (106-279); FIB-Apolipoprotein A1 114 mg/dL (94-176); FIB-GGT 97 U/L (3-70); FIB-Haptoglobin 169 mg/dL (43-212); FIB-Total Bilirubin 0.4 mg/dL (0.2-1.2); Liver Fibrosis Stage F3; Nec Inflam Act Grade A0-A1; Nec Inflam Act Score 0.25
== END 2025-04-27 11:57 | disposition home or self-care (01) ==
LOC: HO.LAB 11:56
PROVIDERS: PCP Internal Medicine; Visit Provider Internal Medicine
DX: K74.00 Hepatic fibrosis, unspecified (principal); Z86.19 Personal history of other infectious and parasitic diseases
CPT/HCPCS: 36415; 80076; 81596; 82105; 85610; 87522

== ENCOUNTER 2025-05-01 15:04 | Outpatient (AMB) | payer OTHER, SELFPAY ==
[2025-05-01 15:17] LABS: Prothrombin Time Whole Bld POC 21.8 sec (11.1-13.5); ~PT, ~INR - Anti Coag Clinic 1.8 (0.9-1.1)
--- NOTE | 2025-05-01 15:25 | MHC.OFFVISCO ---
Intake Intake Visit Reasons: Anticoagulation Allergies No Known Drug Allergies [NO KNOWN DRUG ALLERGIES] Allergy (Mild, Verified 05/01/25 15:05) NONE Medication List - Last Reconciled 05/01/25 by Zainab Rodriguez RN acetaminophen ER 650 mg PO Q8H PRN albuterol sulfate 90 mcg/actuation (ProAir HFA) 2 puffs inhalation Q4-6H PRN fluoride (sodium) 1.1% (PreviDent 5000 Booster Plus) dental BID fluticasone propionate 110 mcg/actuation (Flovent HFA) 1 puff PO BID fluticasone propionate 50 mcg/actuation sprays intranasal gabapentin q pm hydrocortisone acetate (Anusol-HC) 25 mg [place] BID lisinopril 10 mg PO DAILY 30 days loratadine 10 mg PO DAILY meclizine 25 mg PO DAILY PRN oxycodone 5 mg PO Q8H PRN rosuvastatin 5 mg PO BEDTIME sildenafil (Viagra) 100 mg PO DAILY PRN tamsulosin 0.4 mg PO DAILY 90 days tizanidine 2 mg PO Q6H PRN warfarin 7.5 mg See Protocol PO DAILY@1800 Nursing Note INR: 1.8 out of therapeutic range of 2.5-3 Interpretive service utilized, #[id number] Pt denies missed dose or changes in meds or supplements. He states he was positive for Covid 3 weeks ago and that is only change. Medications and supplements reviewed Patient status: feels well today Medications or supplements: no changes Diet: no changes, appetite good Denies any signs and symptoms of bleeding or clotting or unusual bruising Bleeding, bruising, clotting discussed Nutritional guidance given: to avoid greens for next 3 days Dose: increase today's dose to 10mg (7.5mg), increase tomorrow's dose to 10mg (5mg) then 7.5mg then 5mg then retest F/U INR Date: 05/05/25?? Patient verbalizing understanding of instructions with read back given T/C to Dr Raman Mayberry' office. Spoke to Sammie. Davin INR reported with dosing plan and next retest date. 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
--- OUTSIDE RECORDS SUMMARY | 2025-05-01 16:52 | XMS_ITS ---
Author Organization [facility] Address [address] [place] [address] Care Team Providers Care Clinical Research Analyst Name Role Phone Raman Mayberry MD, Sancho Primary Care Provide Joshua Harvey [phone] REASON FOR VISIT RESCHEDULED APPT TOMORROW Encounters Encounter Location Date Provider Diagnosis [facility] [address] [place] [address] 12/21/2024 Joshua Valdivia Plan Of Treatment Next Appt Details Provider Name:Joshua Valdivia , 05/01/2026 09:30:00 AM, [address], [address], [place], [address], Progress Notes * VENANCIO LARRYDOB:[birth year] (69 yo M)Acc No.[id number]:12/21/2024 Patient:?VENANCIO LARRY :1955???Age:69 Y???Sex:Male [address], [place] [address] * true * Date:? Generated for Printi ng/Teenag/eTransmitting on:?05/01/2025 04:51 PM EDT
== END 2025-05-01 16:00 | disposition home or self-care (01) ==
LOC: HO.ACS 15:04
PROVIDERS: PCP Internal Medicine; Visit Provider Internal Medicine Medical Oncology
DX: Z79.01 Long term (current) use of anticoagulants (principal)

== ENCOUNTER → 2025-05-01 15:04 | Outpatient (BNVA) | payer OTHER, SELFPAY | PROVIDERS: PCP Internal Medicine; Visit Provider Internal Medicine Medical Oncology | DX: I26.99 Other pulmonary embolism without acute cor pulmonale (principal); I82.409 Acute embolism and thrombosis of unspecified deep veins of unspecified lower extremity; Z79.01 Long term (current) use of anticoagulants; Z51.81 Encounter for therapeutic drug level monitoring | CPT/HCPCS: 85610; 99211 ==

== ENCOUNTER 2025-05-05 10:28 | Outpatient (AMB) | payer OTHER, SELFPAY ==
--- OUTSIDE RECORDS SUMMARY | 2024-12-21 11:01 | XMS_ITS ---
Author Organization [facility] Address [address] [place] [address] Care Team Providers Care Multi Spindle Operator Name Role Phone Raman Mayberry MD, Sancho Primary Care Provide Joshua Harvey [phone] REASON FOR VISIT RESCHEDULED APPT TOMORROW Encounters Encounter Location Date Provider Diagnosis [facility] [address] [place] [address] 12/21/2024 Joshua Valdivia Plan Of Treatment Next Appt Details Provider Name:Joshua Valdivia , 05/01/2026 09:30:00 AM, [address], [address], [place], [address], Progress Notes * VENANCIO LARRYDOB:[birth year] (69 yo M)Acc No.[id number]:12/21/2024 Patient: Jen RAYNEAILIN VENANCIO SUAREZ :1955 A ge:69 Y S ex:Male Address:[address], [place] [address] * true * Date: Generated for Printi ng/Faxing/eTransmitting on: 0 05/05/2025 10:51 AM EDT
[2025-05-05 10:33] LABS: Prothrombin Time Whole Bld POC 34.8 sec (11.1-13.5); ~PT, ~INR - Anti Coag Clinic 2.9 (0.9-1.1)
--- NOTE | 2025-05-05 10:38 | MHC.OFFVISCO ---
Intake Intake Visit Reasons: Anticoagulation Allergies No Known Drug Allergies (NO KNOWN DRUG ALLERGIES) Allergy (Mild, Verified 05/05/25 10:29) NONE Medication List - Last Reconciled 05/05/25 by Zainab Rodriguez RN acetaminophen ER 650 mg PO Q8H PRN albuterol sulfate 90 mcg/actuation (ProAir HFA) 2 puffs inhalation Q4-6H PRN fluoride (sodium) 1.1% (PreviDent 5000 Booster Plus) dental BID fluticasone propionate 110 mcg/actuation (Flovent HFA) 1 puff PO BID fluticasone propionate 50 mcg/actuation sprays intranasal gabapentin q pm hydrocortisone acetate (Anusol-HC) 25 mg [place] BID lisinopril 10 mg PO DAILY 30 days loratadine 10 mg PO DAILY meclizine 25 mg PO DAILY PRN oxycodone 5 mg PO Q8H PRN rosuvastatin 5 mg PO BEDTIME sildenafil (Viagra) 100 mg PO DAILY PRN tamsulosin 0.4 mg PO DAILY 90 days tizanidine 2 mg PO Q6H PRN warfarin 7.5 mg See Protocol PO DAILY@1800 Nursing Note INR: 2.9 in therapeutic range of 2.5-3.0 Medications and supplements reviewed No changes in health, diet, medications, or supplements, Denies any signs and symptoms of bleeding or bruising or clotting. Bleeding, bruising, clotting discussed Nutritional guidance given Dose: 7.5mg X 4 days and 5mg X 3 days (Sun/Tues/Thurs) F/U INR: 2 weeks Patient verbalizes understanding of instructions given Anti-Coag Initial Assessment Social Hx Patient Tobacco Use Status: Never used Tobacco alcohol intake: former Alcohol intake frequency: does not drink Coding Level of Care Code Est Patient Level 1 Diagnoses Current use of anticoagulant therapy Z79.01 Results AMB INR Fingerstick AMB INR Fingerstick 2.9 Last Edit by Zainab Rodriguez RN on 05/05/25 10:33 interface delay Assessment & Plan Assessment & Plan (1) Current use of anticoagulant therapy: 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
== END 2025-05-05 10:40 | disposition home or self-care (01) ==
LOC: HO.ACS 10:28
PROVIDERS: PCP Internal Medicine; Visit Provider Internal Medicine Medical Oncology
DX: Z79.01 Long term (current) use of anticoagulants (principal)

== ENCOUNTER → 2025-05-05 10:28 | Outpatient (BNVA) | payer OTHER, SELFPAY | PROVIDERS: PCP Internal Medicine; Visit Provider Internal Medicine Medical Oncology | DX: I82.409 Acute embolism and thrombosis of unspecified deep veins of unspecified lower extremity (principal); Z79.01 Long term (current) use of anticoagulants; Z51.81 Encounter for therapeutic drug level monitoring | CPT/HCPCS: 85610; 99211 ==

== ENCOUNTER 2025-05-14 05:06 | Emergency (ER) | payer OTHER, SELFPAY ==
--- NOTE | ~2025-05-14 | CT_ITS ---
CLINICAL HISTORY: right lower chest RUQ abd. pain CT abdomen and pelvis without contrast Comparison: None provided Findings: Right base atelectasis present. Moderate cardiomegaly. Nonobstructing bilateral renal calculi present. There is a 1.5 cm cyst in the right kidney. No hydronephrosis of either kidney. No stones in the ureters. Liver is normal in size. The gallbladder is absent. No biliary ductal dilatation. No bowel obstruction, pneumoperitoneum, or pneumatosis. Moderate fecal loading in the colon. IVC is flattened and there are internal calcifications consistent with chronic occlusion of the IVC. Multiple dilated abdominal wall veins present. Pelvic contents unremarkable. Normal appendix. No lytic or blastic bone lesions. IMPRESSION: No acute findings. Nonobstructing bilateral renal calculi. 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 This document has been electronically signed by: Quinton Segura MD on 05/14/2025 11:10:37
[2025-05-14 05:36] VITALS: BP 201/101; PULSE 66; RESP 16; TEMP 36.4; O2SAT 97; BMI 28.9
[2025-05-14 06:04] LABS: Basophils Percent Auto 0.3 % (0-2); Eosinophils Absolute Auto 0.3 X10*3/uL (0.0-0.4); Eosinophils Percent Auto 5.8 % (0-4); Hematocrit 37.5 % (42.0-52.0); Hemoglobin 13.5 g/dl (14.0-18.0); Imm Gran Abs Auto 0.01 X10*3/uL (0.00-0.03); Imm Gran Pct Auto 0.2 % (0.0-0.4); Lymphocytes Percent Auto 51.5 % (20-40); MANUAL DIFF FLAG NO; Mean Corpuscular Volume 86.2 fL (80.0-98.0); Mean Platelet Volume 9.7 fL (9.4-12.4); Monocytes Absolute Auto 0.5 X10*3/uL (0.1-1.2); Monocytes Percent Auto 8.4 % (2-11); Neutrophils Absolute Auto 1.9 x10*3/uL (2.0-8.3); Neutrophils Percent Auto 33.8 % (45-73); Platelet Count 196 X10*3/uL (160-400); Red Blood Count 4.35 X10*6/uL (4.60-5.80); Red Cell Distribution Width 13.2 % (11.0-16.0); White Blood Count 5.7 X10*3/uL (4.8-10.8)
[2025-05-14 06:20] LABS: Alanine Aminotransferase 48 U/L (0-40); Albumin Level 4.1 g/dL (3.5-5.0); Alkaline Phosphatase 61 U/L (39-117); Anion Gap 12 (12-20); Aspartate Amino Transferase 38 U/L (5-37); Bilirubin Direct 0.1 mg/dL (0.0-0.5); Bilirubin Total 0.5 mg/dL (0.0-1.0); Blood Urea Nitrogen 10 mg/dL (9-16); Calcium 8.5 mg/dL (8.4-10.2); Carbon Dioxide 26 mmol/L (22-29); Chloride 108 mmol/L (96-108); Creatinine Clr Calc Pharmacy 78.8; Estimated Glomerular Filt Rate > 60; Glucose Random 104 mg/dL (60-115); Lipase 47 U/L (8-78); Magnesium 2.1 mg/dL (1.6-2.6); Potassium 4.1 mmol/L (3.3-5.1); Sodium 142 mmol/L (135-145); Total Protein 7.2 g/dL (6.5-8.0)
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
[2025-05-14] MEDS: Acetaminophen 1,000 MG/100 ML PIGGYBACK 400 MG IV (08:32)
[2025-05-14 09:11] VITALS: BP 214/106; PULSE 64; RESP 14; TEMP 36.4; O2SAT 96
[2025-05-14 09:15] VITALS: BP 214/106
[2025-05-14] MEDS: lisinopriL 10 MG TABLET PO (09:15)
[2025-05-14 09:16] VITALS: BP 214/106
[2025-05-14] MEDS: amLODIPine Besylate 5 MG TABLET PO (09:16)
[2025-05-14 09:23] LABS: Appearance Urine Clear; Color Urine Yellow; Glucose Urine UA Negative (Negative); Leukocyte Esterase Urine Negative (Negative); Nitrite Urine Negative (Negative); Specific Gravity - Urine 1.015 (1.005-1.025); Urine Blood Negative (Negative); Urine Ketones Negative (Negative); Urine Protein Negative (Neg-Trace)
[2025-05-14 09:59] VITALS: BP 175/91; PULSE 60; RESP 16; O2SAT 96
--- NOTE | 2025-05-14 11:26 | ECG_ITS ---
Test Reason : chest pain Blood Pressure : */* mmHG Vent. Rate : 58 BPM Atrial Rate : 58 BPM P-R Int : 176 ms QRS Dur : 100 ms QT Int : 474 ms P-R-T Axes : 27 -7 21 degrees QTcB Int : 465 ms Sinus bradycardia Moderate voltage criteria for LVH, may be normal variant ( R in aVL , Sokolow-Hawthorne ) Borderline ECG When compared with ECG of 23-Jan-2024 16:47, No significant change was found Referred By: Shavonne Leach Electronically Signed By: LIEF GARDNER MD
[2025-05-14 11:45] VITALS: BP 170/89; PULSE 59; RESP 18; TEMP 36.7; O2SAT 96
[2025-05-14 12:18] LABS: Troponin-I High Sensitivity < 2.7 ng/L (<3.5-35.0)
== END 2025-05-14 12:41 | disposition home or self-care (01) ==
PROVIDERS: Emergency Provider Emergency Medicine
DX: R10.11 Right upper quadrant pain (principal); I48.91 Unspecified atrial fibrillation; I10 Essential (primary) hypertension; Z79.01 Long term (current) use of anticoagulants
CPT/HCPCS: 36415; 74176; 80053; 81003; 82248; 83690; 83735; 84484; 85025; 93005; 99284; 99285; J0131

== ENCOUNTER → 2025-05-14 08:16 | Outpatient (BNV) | payer OTHER, SELFPAY | PROVIDERS: Emergency Provider Emergency Medicine; Visit Provider Radiology Diagnostic Radiology | DX: N20.0 Calculus of kidney (principal) | CPT/HCPCS: 74176 ==

== ENCOUNTER → 2025-05-14 11:26 | Outpatient (BNV) | payer OTHER, SELFPAY | PROVIDERS: Emergency Provider Emergency Medicine; Visit Provider Internal Medicine Cardiovascular Disease | DX: R00.1 Bradycardia, unspecified (principal) | CPT/HCPCS: 93010 ==

== ENCOUNTER 2025-05-22 10:30 | Outpatient (AMB) | payer OTHER, SELFPAY ==
[2025-05-22 10:39] LABS: Prothrombin Time Whole Bld POC 79.3 sec (11.1-13.5); ~PT, ~INR - Anti Coag Clinic 6.6 (0.9-1.1)
--- NOTE | 2025-05-22 10:54 | MHC.OFFVISCO ---
Intake Intake Visit Reasons: Anticoagulation Allergies No Known Drug Allergies (NO KNOWN DRUG ALLERGIES) Allergy (Mild, Verified 05/22/25 10:34) NONE Medication List - Last Reconciled 05/22/25 by Zainab Rodriguez RN acetaminophen ER 650 mg PO Q8H PRN albuterol sulfate 90 mcg/actuation (ProAir HFA) 2 puffs inhalation Q4-6H PRN fluoride (sodium) 1.1% (PreviDent 5000 Booster Plus) dental BID fluticasone propionate 110 mcg/actuation (Flovent HFA) 1 puff PO BID fluticasone propionate 50 mcg/actuation sprays intranasal gabapentin q pm hydrocortisone acetate (Anusol-HC) 25 mg [place] BID lisinopril 10 mg PO DAILY 30 days loratadine 10 mg PO DAILY meclizine 25 mg PO DAILY PRN oxycodone 5 mg PO Q8H PRN rosuvastatin 5 mg PO BEDTIME sildenafil (Viagra) 100 mg PO DAILY PRN tamsulosin 0.4 mg PO DAILY 90 days tizanidine 2 mg PO Q6H PRN warfarin 7.5 mg See Protocol PO DAILY@1800 Nursing Note INR: 6.6?out of therapeutic range of 2.5-3.0. Pt to lab for venous draw to confirm. 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 Pt states he went to a [employer] and had some alcoholic beverages. This explains the high INR. Medications and supplements reviewed Patient status: feels well Medications or supplements: no changes Diet: ALso had watermelon which can raise the INR Denies any signs and symptoms of bleeding or clotting or unusual bruising Bleeding, bruising, clotting discussed Nutritional guidance given: to have a serving of greens today Dose: hold warfarin X 2 days and then retest F/U INR Date: 2 days?? Patient verbalizing understanding of instructions with read back given. T/C to Dr Camargo's office. Spoke to Mirella and reported critical INR of 6.0 with plan to hold warfarin X 2 days and pt to return on 05/24/25 Anti-Coag Initial Assessment Social Hx Patient Tobacco Use Status: Never used Tobacco alcohol intake: former Alcohol intake frequency: does not drink Coding Level of Care Code Est Patient Level 2 Diagnoses Current use of anticoagulant therapy Z79.01 Comment critical INR, to lab for venous draw, velvet steamer for instructions Results AMB INR Fingerstick AMB INR Fingerstick 6.0 Last Edit by Zainab Rodriguez RN on 05/22/25 11:57 6.0 by venous draw 6.6 by ACS POC Assessment & Plan Assessment & Plan (1) Current use of anticoagulant therapy: Code(s): 

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
--- OUTSIDE RECORDS SUMMARY | 2025-05-22 11:21 | XMS_ITS | Encounter Summary ---
Author Organization [employer] Address [address] 7[address] [place] [address] Care Team Providers Care Broom Builder Name Role Phone Sancho Yoon MD Primary Care Provide r Reason for Visit * Reason Onset Date Comments Med Refill 05/01/2025 Encounter Details Date Type Department Care Team ([facility] st Contact Info) Description 05/01/2025 Telephone [facility] [address] [place] [address] Sancho Yoon MD [address] [place] [address] Med Refill Social History Tobacco Use Types [...] * Telephone Encounter - Antonette Chapman - 05/01/2025 10:12 AM EDT TC from pt requesting medication refill. Medications needing refill : oxyCODONE (Roxicodone) 5 MG immediate release tablet To be sent to: [facility] - [place], [place] - [address] [place] [address] documented in this encounter Plan of Treatment Upcoming Encounters Date Type Department Care Team (Late st Contact Info) Description 05/23/2025 11:00 AM EDT Office Visit [facility] [place] [address] 05/24/2025 3:30 PM EDT Clinical Support [facility] [place] [address] 08/01/2025 1:15 PM EDT Office Visit [facility] [place] [address] [place] [address] 09/18/2025 8:00 AM EST Office Visit [facility] [address] [place] [address] Sanchez, Yi documented as of this encounter Visit Diagnoses Not on filedocumented in this encounter Additional Health Concerns Assessment Noted Time PHQ-9 Depression Total Score: 0 09/29/20 24 9:48 AM EST documented as of this encounter Care Teams Broom Builder Relationship Specialty Start Date End Date Sancho Yoon MD [address] [place] [address] PCP - General Internal Medicine 08/16/14 documented as of this encounter
== END 2025-05-22 12:06 | disposition home or self-care (01) ==
LOC: HO.ACS 10:30
PROVIDERS: Visit Provider Internal Medicine Medical Oncology
DX: Z79.01 Long term (current) use of anticoagulants (principal)

== ENCOUNTER 2025-05-22 10:30 | Outpatient (REF) | payer OTHER, SELFPAY ==
[2025-05-22 11:44] LABS: Prothrombin Time 68.6 SEC (10.9-12.4)
[2025-05-22 11:48] LABS: INTERNATIONAL NORM RATIO 6.0 (0.9-1.1)
== END 2025-05-22 10:31 | disposition home or self-care (01) ==
LOC: HO.LAB 10:30
PROVIDERS: Visit Provider Internal Medicine Medical Oncology
DX: Z79.01 Long term (current) use of anticoagulants (principal)
CPT/HCPCS: 36415; 85610; 99212

== ENCOUNTER 2025-05-24 10:38 | Outpatient (REF) | payer OTHER, SELFPAY ==
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
--- OUTSIDE RECORDS SUMMARY | 2025-05-24 11:41 | XMS_ITS | Encounter Summary ---
Author Organization [employer] Address [address] [facility] [address] [place] [address] Care Team Providers Care Salvage Mend Worker Name Role Phone Sancho Yoon MD Primary Care Provide r Reason for Visit * Reason Onset Date Comments Med Refill 05/01/2025 Encounter Details Date Type Department Care Team ([facility] st Contact Info) Description 05/01/2025 Telephone [facility] [address] [place] [address] Sancho Yoon MD [address] [place] [address] Med Refill Social History Tobacco Use Types [...] immediate release tablet To be sent to: [facility] - [place], [place] - [address] [place] [address] documented in this encounter Plan of Treatment Upcoming Encounters Date Type Department Care Team (Late st Contact Info) Description 05/24/2025 3:30 PM EDT Clinical Support [facility] [address] [place] [address] 06/27/2025 9:45 AM EDT Office Visit [facility] [address] [place] [address] 08/01/2025 1:15 PM EDT Office Visit [facility] [address] [place] [address] Sancho Yoon MD [address] [place] [address] 09/18/2025 8:00 AM EST Office Visit [facility] ADULT DENT[facility] [address] [place] [address] Sanchez, Yi documented as of this encounter Visit Diagnoses Not on filedocumented in this encounter Additional Health Concerns Assessment Noted Time PHQ-9 Depression Total Score: 0 09/29/20 24 9:48 AM EST documented as of this encounter Care Teams Salvage Mend Worker Relationship Specialty Start Date End Date Sancho Yoon MD [address] [place] [address] PCP - General Internal Medicine 08/16/14 documented as of this encounter
[2025-05-24] MEDS: iohexoL 350 MG/ML 100 ML INFUS..BTL 65 ML IV (12:21)
== END 2025-05-24 10:39 | disposition home or self-care (01) ==
LOC: HO.CT 10:38
PROVIDERS: PCP Internal Medicine; Visit Provider Emergency Medicine
DX: R07.9 Chest pain, unspecified (principal); I26.99 Other pulmonary embolism without acute cor pulmonale; Z51.81 Encounter for therapeutic drug level monitoring; Z79.01 Long term (current) use of anticoagulants
CPT/HCPCS: 71275; 85610; 99211; Q9967

== ENCOUNTER → 2025-05-24 11:47 | Outpatient (BNV) | payer OTHER, SELFPAY | PROVIDERS: PCP Internal Medicine; Visit Provider Radiology Diagnostic Radiology | DX: I26.93 Single subsegmental thrombotic pulmonary embolism without acute cor pulmonale (principal); R91.8 Other nonspecific abnormal finding of lung field | CPT/HCPCS: 71275 ==

== ENCOUNTER 2025-05-24 12:15 | Outpatient (AMB) | payer OTHER, SELFPAY ==
--- NOTE | 2025-05-24 12:14 | MHC.OFFVISCO ---
Intake Intake Visit Reasons: Anticoagulation Allergies No Known Drug Allergies (NO KNOWN DRUG ALLERGIES) Allergy (Mild, Verified 05/24/25 15:07) NONE Medication List - Last Reconciled 05/24/25 by Bre Hayes RN acetaminophen ER 650 mg PO Q8H PRN albuterol sulfate 90 mcg/actuation (ProAir HFA) 2 puffs inhalation Q4-6H PRN fluoride (sodium) 1.1% (PreviDent 5000 Booster Plus) dental BID fluticasone propionate 110 mcg/actuation (Flovent HFA) 1 puff PO BID fluticasone propionate 50 mcg/actuation sprays intranasal gabapentin q pm hydrocortisone acetate (Anusol-HC) 25 mg OR BID lisinopril 10 mg PO DAILY 30 days loratadine 10 mg PO DAILY meclizine 25 mg PO DAILY PRN oxycodone 5 mg PO Q8H PRN rosuvastatin 5 mg PO BEDTIME sildenafil (Viagra) 100 mg PO DAILY PRN tamsulosin 0.4 mg PO DAILY 90 days tizanidine 2 mg PO Q6H PRN warfarin 7.5 mg See Protocol PO DAILY@1800 Nursing Note NO CP,SOB,DIET/MED CHANGES,FALLS OR SX OF BLEEDING. RESUME USUAL DOSE AND FOLLOW-UP IN 3 WEEKS. GOOD UNDERSTANDING VERB. Anti-Coag Initial Assessment Social Hx Patient Tobacco Use Status: Never used Tobacco alcohol intake: former Alcohol intake frequency: does not drink Coding Level of Care Code Est Patient Level 1 Diagnoses Current use of anticoagulant therapy Z79.01 Assessment & Plan Assessment & Plan (1) Current use of anticoagulant therapy: Code(s): Z79.01 - medical terminologist (current) use of anticoagulants Category: Medical
[2025-05-24 12:21] LABS: Prothrombin Time Whole Bld POC 33.4 sec (11.1-13.5); ~PT, ~INR - Anti Coag Clinic 2.8 (0.9-1.1)
--- NOTE | 2025-05-24 16:23 | MHC.OFFVISCO ---
Intake Intake Visit Reasons: Anticoagulation Allergies No Known Drug Allergies (NO KNOWN DRUG ALLERGIES) Allergy (Mild, Verified 05/24/25 15:07) NONE Medication List - Last Reconciled 05/24/25 by Bre Hayes RN acetaminophen ER 650 mg PO Q8H PRN albuterol sulfate 90 mcg/actuation (ProAir HFA) 2 puffs inhalation Q4-6H PRN fluoride (sodium) 1.1% (PreviDent 5000 Booster Plus) dental BID fluticasone propionate 110 mcg/actuation (Flovent HFA) 1 puff PO BID fluticasone propionate 50 mcg/actuation sprays intranasal gabapentin q pm hydrocortisone acetate (Anusol-HC) 25 mg W[place] BID lisinopril 10 mg PO DAILY 30 days loratadine 10 mg PO DAILY meclizine 25 mg PO DAILY PRN oxycodone 5 mg PO Q8H PRN rosuvastatin 5 mg PO BEDTIME sildenafil (Viagra) 100 mg PO DAILY PRN tamsulosin 0.4 mg PO DAILY 90 days tizanidine 2 mg PO Q6H PRN warfarin 7.5 mg See Protocol PO DAILY@1800 Nursing Note NO CP,SOB,DIET/MED CHANGES,FALLS OR SX OF BLEEDING. RESUME PRESENT DOSING AND FOLLOW-UP IN 3 WEEKS GOOD UNDERSTANDING OF DOSING INSTR. Anti-Coag Initial Assessment Social Hx Patient Tobacco Use Status: Never used Tobacco alcohol intake: former Alcohol intake frequency: does not drink Coding Level of Care Code Est Patient Level 1 Diagnoses Current use of anticoagulant therapy Z79.01 Assessment & Plan Assessment & Plan (1) Current use of anticoagulant therapy: Code(s): Z79.01 - [facility] (current) use of anticoagulants Category: Medical
== END 2025-05-24 12:26 | disposition home or self-care (01) ==
LOC: HO.ACS 12:15
PROVIDERS: PCP Internal Medicine; Visit Provider Internal Medicine Medical Oncology
DX: Z79.01 Long term (current) use of anticoagulants (principal)

== ENCOUNTER 2025-05-24 14:34 | Inpatient (IN) | payer OTHER, SELFPAY ==
[2025-05-24] VITALS (7 sets, daily range): BP systolic 142–204; BP diastolic 81–111; PULSE 60–84; RESP 14–16; TEMP 36.9–37.2; O2SAT 95–97; BMI 29.2
--- NOTE | ~2025-05-24 | US_ITS ---
EXAMINATION: US TRIPLEX LOWER EXTREMITY, BILATERAL CLINICAL INFORMATION: Acute pulmonary artery embolism. COMPARISON: None available. TECHNIQUE: Color-flow triplex imaging with spectral analysis and compression Doppler were performed on the bilateral lower extremities. FINDINGS: Respiratory variation, normal compression and augmented flow are demonstrated within the interrogated veins of the left lower extremity, left common femoral vein, superficial femoral vein, profunda femoral vein, popliteal vein, peroneal, posterior tibialis veins at the mid calf. There is partial compressibility and are partial respiratory variation within the interrogated right common femoral vein, superficial femoral vein, profunda femoral vein, popliteal vein and midcalf peroneal and posterior tibial venous segments . There is no Husain's cyst. US/US venous duplex LE BI IMPRESSION: Acute nonocclusive thrombus, right lower extremity from the common femoral vein to the peroneal veins. Positive DVT, right lower extremity. No acute deep venous thrombosis, left lower extremity. Negative DVT left lower extremity. Electronically signed by: Jose Low MD 05/26/2025 07:21 AM EDT
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
--- NOTE | 2025-05-24 15:09 | ECG_ITS ---
Test Reason : chest pain Blood Pressure : */* mmHG Vent. Rate : 79 BPM Atrial Rate : 79 BPM P-R Int : 150 ms QRS Dur : 90 ms QT Int : 394 ms P-R-T Axes : 50 -26 28 degrees QTcB Int : 451 ms Normal sinus rhythm Moderate voltage criteria for LVH, may be normal variant ( R in aVL , [employer] product ) Borderline ECG When compared with ECG of 14-May-2025 11:49, No significant change was found Referred By: Cecilia Salazar Electronically Signed By: Beck Marvin
[2025-05-24 15:25] LABS: MANUAL DIFF FLAG NO
[2025-05-24 15:32] LABS: Hematocrit 38.3 % (42.0-52.0); Hemoglobin 13.7 g/dl (14.0-18.0); Imm Gran Abs Auto 0.01 X10*3/uL (0.00-0.03); Imm Gran Pct Auto 0.2 % (0.0-0.4); Lymphocytes Absolute Auto 2.0 X10*3/uL (1.2-4.9); Mean Corpuscular HGB Conc 35.8 g/dl (31.0-36.0); Mean Corpuscular Hemoglobin 30.7 pg (27.0-33.0); Mean Corpuscular Volume 85.9 fL (80.0-98.0); NRBC Abs Auto 0.000 X10*3/uL (0.0-0.012); NRBC Pct Auto 0.0 /100WBC (0.0-0.2); Platelet Count 175 X10*3/uL (160-400); Red Blood Count 4.46 X10*6/uL (4.60-5.80); White Blood Count 5.3 X10*3/uL (4.8-10.8)
[2025-05-24 15:34] LABS: INTERNATIONAL NORM RATIO 2.2 (0.9-1.1); Prothrombin Time 25.3 SEC (10.9-12.4)
[2025-05-24 15:36] LABS: Partial Thromboplastin Time 41.8 SEC (26.0-36.8)
[2025-05-24 15:41] LABS: Alanine Aminotransferase 41 U/L (0-40); Albumin Level 4.4 g/dL (3.5-5.0); Alkaline Phosphatase 61 U/L (39-117); Anion Gap 10 (12-20); Aspartate Amino Transferase 39 U/L (5-37); Blood Urea Nitrogen 12 mg/dL (9-16); Calcium 8.3 mg/dL (8.4-10.2); Carbon Dioxide 26 mmol/L (22-29); Chloride 109 mmol/L (96-108); Creatinine Clr Calc Pharmacy 85.8; Estimated Glomerular Filt Rate > 60; Magnesium 2.2 mg/dL (1.6-2.6); Potassium 3.8 mmol/L (3.3-5.1); Sodium 141 mmol/L (135-145); Total Protein 7.4 g/dL (6.5-8.0)
[2025-05-24 15:47] LABS: B Type Natriuretic Peptide 26 pg/mL (<100)
[2025-05-24 15:49] LABS: Troponin-I High Sensitivity < 2.7 ng/L (<3.5-35.0)
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
--- NOTE | 2025-05-24 18:17 | PC.NURSE ---
Pt with high BP, #20 placed in L FA and Labetolol admin per MAR
[2025-05-24] MEDS: Heparin Sodium,Porcine/1/2NS 25,000 UNIT/250 ML IV.SOLN 13.69 UNIT IVCONT (18:56)
--- NOTE | 2025-05-24 19:05 | PC.NURSE ---
Heparin drip infusing at 14 units/kg/hr via 20 G IV line in L forearm w/o issues, no s/s of bleeding noted. O2 Sat 97% RA, BP 171/92, HR 61, NSR on court monitor. Patient resting in stretcher bed, watching TV, call figueroa in patient's reach.
[2025-05-24 19:12] LABS: Hematocrit 38.9 % (42.0-52.0); Hemoglobin 13.8 g/dl (14.0-18.0); Mean Corpuscular HGB Conc 35.5 g/dl (31.0-36.0); Mean Corpuscular Hemoglobin 30.7 pg (27.0-33.0); Mean Corpuscular Volume 86.6 fL (80.0-98.0); NRBC Abs Auto 0.000 X10*3/uL (0.0-0.012); NRBC Pct Auto 0.0 /100WBC (0.0-0.2); Platelet Count 177 X10*3/uL (160-400); Red Blood Count 4.49 X10*6/uL (4.60-5.80); White Blood Count 5.8 X10*3/uL (4.8-10.8)
[2025-05-24 19:22] LABS: INTERNATIONAL NORM RATIO 2.3 (0.9-1.1); Prothrombin Time 25.9 SEC (10.9-12.4)
--- NOTE | 2025-05-24 20:23 | PHA.MEDREC ---
Addendum entered by Hank Boone PharmD 05/24/25 20:29: reviewed Original Note: Pharmacy Consult ? Medication Reconciliation Pharmacy has completed the medication reconciliation. Spoke to patient through interpreters service (Clint) to confirm med list. Patient was able to name all of his medications. Patient states he no longer takes Cetirizine 10 mg, Flonase, Loratadine 10 mg, [id number] mg, and Tamsulosin 0.4 mg. Patient confirmed Warfarin alternating 5 mg to 7.5 mg daily depending on his INR, last dose 05/23/25 5 mg. Patient states today he would have took 7.5 mg, and tomorrow is 5 mg
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
[2025-05-25] VITALS (7 sets, daily range): BP systolic 158–198; BP diastolic 78–100; PULSE 59–88; RESP 16–20; TEMP 36.3–36.9; O2SAT 93–98; BMI 29.6
--- NOTE | 2025-05-25 | ECG_ITS ---
Test Reason : chest pain Blood Pressure : */* mmHG Vent. Rate : 71 BPM Atrial Rate : 71 BPM P-R Int : 154 ms QRS Dur : 90 ms QT Int : 432 ms P-R-T Axes : 68 -13 15 degrees QTcB Int : 469 ms Normal sinus rhythm Minimal voltage criteria for LVH, may be normal variant ( R in aVL ) Borderline ECG When compared with ECG of 24-May-2025 15:10, No significant change was found Referred By: Yudith Nascimento Electronically Signed By: Beck Marvin
[2025-05-25 05:40] LABS: MANUAL DIFF FLAG NO
[2025-05-25 05:57] LABS: PTT Heparin Drip 51.6 SEC (53-77.9)
[2025-05-25 06:01] LABS: Anion Gap 10 (12-20); Blood Urea Nitrogen 12 mg/dL (9-16); Calcium 8.4 mg/dL (8.4-10.2); Carbon Dioxide 24 mmol/L (22-29); Chloride 108 mmol/L (96-108); Creatinine Clr Calc Pharmacy 102.1; Estimated Glomerular Filt Rate > 60; Potassium 3.4 mmol/L (3.3-5.1); Sodium 139 mmol/L (135-145)
[2025-05-25 06:04] LABS: Partial Thromboplastin Time 107.6 SEC (26.0-36.8)
[2025-05-25 06:07] LABS: PTT Heparin Drip > 200.0 SEC (53-77.9)
[2025-05-25 06:15] LABS: Hematocrit 36.6 % (42.0-52.0); Hemoglobin 13.1 g/dl (14.0-18.0); Imm Gran Abs Auto 0.01 X10*3/uL (0.00-0.03); Imm Gran Pct Auto 0.2 % (0.0-0.4); Lymphocytes Absolute Auto 2.6 X10*3/uL (1.2-4.9); Mean Corpuscular HGB Conc 35.8 g/dl (31.0-36.0); Mean Corpuscular Hemoglobin 30.8 pg (27.0-33.0); Mean Corpuscular Volume 86.1 fL (80.0-98.0); NRBC Abs Auto 0.000 X10*3/uL (0.0-0.012); NRBC Pct Auto 0.0 /100WBC (0.0-0.2); Platelet Count 173 X10*3/uL (160-400); Red Blood Count 4.25 X10*6/uL (4.60-5.80); White Blood Count 5.7 X10*3/uL (4.8-10.8)
[2025-05-25 07:00] LABS: INTERNATIONAL NORM RATIO 1.7 (0.9-1.1); Prothrombin Time 19.0 SEC (10.9-12.4)
--- NOTE | 2025-05-25 07:00 | CA_ITS ---
Transthoracic Echocardiogram Patient (Last, First, Middle): Clint Beckford, Gender: Male Date of : 1955 Age: 69 Procedure Date: 05/25/2025 Procedure Type: Transthoracic Echocardiogram Location: [facility] [place] Height: 182.88 cm Weight: 98.88 kg BSA: 2.21 m2 Heart Rate: bpm BP: 160 / 82 mmHg Rubber Liner: RAFIA Referring MD: Janett Gracia MD Symptoms: Acute pulmonary embolism Study Quality: Adequate with contrast Conclusions: - Normal left ventricular size and systolic function. There is mildly increased left ventricular wall thickness. The visually estimated ejection fraction is between 55-60%. There is no evidence of regional wall motion abnormalities. Diastolic function is normal for age. - Normal right ventricular cavity size and systolic function. - There is mild dilatation of the sinuses of Valsalva measuring 3.87 cm and mild dilatation of the ascending aorta measuring 3.80 cm. Findings Procedure Information Contrast agent, definity, is being given per protocol without apparent complications. Left Ventricle Normal left ventricular size and systolic function. There is mildly increased left ventricular wall thickness. The visually estimated ejection fraction is between 55-60%. There is no evidence of regional wall motion abnormalities. Diastolic function is normal for age. Right Ventricle Normal right ventricular cavity size and systolic function. Atria The left atrium is normal in size. The right atrium is normal in size. Aortic Valve Normal aortic valve structure and function. There is no aortic valve stenosis. There is no aortic valve regurgitation. Mitral Valve The mitral valve appears normal. There is trace mitral valve regurgitation. There is no mitral valve stenosis. Pulmonic Valve The pulmonic valve is likely normal. Tricuspid Valve Normal tricuspid valve structure. There is no tricuspid valve regurgitation. Normal right atrial pressure. There is no evidence of pulmonary hypertension. Great Vessels There is mild dilatation of the sinuses of Valsalva measuring 3.87 cm and mild dilatation of the ascending aorta measuring 3.80 cm. The visualized portions of the pulmonary artery and branches are normal. Venous The inferior vena cava is normal in size and collapses greater than 50% with inspiration. Pericardium/Pleural There is no evidence of pericardial effusion. Measurements 2D Linear Measurements IVSd: 1.30 0.6-0.9/0.6-1.0 cm LVIDd: 5.17 3.9-5.3/4.2-5.9 cm LVIDd Index: 2.34 2.4-3.2/2.2-3.1 cm/m2 LVIDs: 3.88 2.0-3.6 cm LVPWd: 1.17 0.7-1.1 cm LA Diam: 3.60 2.7-3.8/3.0-4.0 cm LAIDs Index: 1.63 1.5-2.3 cm/m2 LV Mass: 320.07 67-162/88-224 g LV Mass Index: 144.83 43-95/49-115 g/m2 LVOT Diam: 2.10 3.0+(-)1.3 cm 2D Systolic Function EF 4C: 60.20 >55% EF 2C: 71.00 >55% EF BiP: 63.80 >55% Mitral Valve MV Pk E: 0.49 MV PK A: 0.99 MV Decel Time: 401.00 E/A: 0.50 E'Lateral: 6.74 E'Medial: 5.11 E/E' Med: 9.50 E/E' Lat: 7.20 PHT: 118.00 MVA PHT: 1.86 Decel App[place]: 1.22 Aortic Valve AoV Pk Julio: 1.26 AoV Mn Julio: 0.80 AoV VTI: 0.28 AoV Pk Grad: 6.00 Aov Mn Grad: 3.00 RADHA Cont.VTI: 2.75 LVOT LVOT Pk Julio: 0.98 LVOT Mn Julio: 0.68 LVOT VTI: 0.22 LVOT Pk Grad: 4.00 LVOT Mn Grad: 2.00 LVOT Diam: 2.10 LVOT Area: 3.46 Diastolic Function MV Pk E: 0.49 MV Pk A: 0.99 E/A: 0.50 E'Medial: 5.11 E/E' Med: 9.50 E' Laterial: 6.74 E/E' Lat: 7.20 Right Ventricle TAPSE (mm): 27.70 TVS' Julio: 12.40 Tricuspid Valve TR Pk Julio: 1.67 TR Pk Grad: 11.00 RA Press: 3.00 RVSP: 14.00 Great Vessels Aorta Sinus of Valsalva: 3.87 2.0-3.[address] [place]: 3.07 1.7-3.4 cm Ao Asc: 3.80 2.1-3.4 cm Ao Arch: 3.60 Updated in Other Vendor System with Status of Final Beck Marvin MD electronically signed on 05/27/2025 8:18:19 AM with status of Final
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
[2025-05-25] MEDS: 0.9 % Sodium Chloride Flush 3 ML SYRINGE IVFLUSH ×3 (08:44→21:01)
--- NOTE | 2025-05-25 08:46 | MHC.CM.PN ---
IMM 05/25/25, Pt. lives with his son and a roommate. PCP is confirmed: Dr. Bean. HCP discussed, he will complete form here and it will be added to his chart, naming his son. He does not use home health services or DME. He is able to arrange transport home at [place]. DCP: home, self care. CM to follow for DC needs.
[2025-05-25 12:45] LABS: PTT Heparin Drip 63.9 SEC (53-77.9)
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
[2025-05-25 19:43] LABS: PTT Heparin Drip 54.3 SEC (53-77.9)
[2025-05-25] MEDS: oxyCODONE HCl Immed Release 5 MG TABLET PO (21:12)
[2025-05-26 04:00] VITALS: BP 112/74; PULSE 67; RESP 18; TEMP 37; O2SAT 96
[2025-05-26 07:01] LABS: Hematocrit 39.7 % (42.0-52.0); Hemoglobin 14.0 g/dl (14.0-18.0); Mean Corpuscular HGB Conc 35.3 g/dl (31.0-36.0); Mean Corpuscular Hemoglobin 30.8 pg (27.0-33.0); Mean Corpuscular Volume 87.4 fL (80.0-98.0); NRBC Abs Auto 0.000 X10*3/uL (0.0-0.012); NRBC Pct Auto 0.0 /100WBC (0.0-0.2); Platelet Count 176 X10*3/uL (160-400); Red Blood Count 4.54 X10*6/uL (4.60-5.80); White Blood Count 6.3 X10*3/uL (4.8-10.8)
[2025-05-26 07:07] LABS: INTERNATIONAL NORM RATIO 1.8 (0.9-1.1); Prothrombin Time 20.6 SEC (10.9-12.4)
[2025-05-26 07:14] LABS: Alanine Aminotransferase 46 U/L (0-40); Albumin Level 4.3 g/dL (3.5-5.0); Alkaline Phosphatase 56 U/L (39-117); Anion Gap 12 (12-20); Aspartate Amino Transferase 43 U/L (5-37); Blood Urea Nitrogen 13 mg/dL (9-16); Calcium 9.0 mg/dL (8.4-10.2); Carbon Dioxide 27 mmol/L (22-29); Chloride 104 mmol/L (96-108); Creatinine Clr Calc Pharmacy 75.4; Estimated Glomerular Filt Rate > 60; Potassium 3.8 mmol/L (3.3-5.1); Sodium 139 mmol/L (135-145); Total Protein 7.4 g/dL (6.5-8.0)
[2025-05-26 07:46] VITALS: BP 134/79; PULSE 62; RESP 18; TEMP 36.2; O2SAT 93
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
[2025-05-26] MEDS: 0.9 % Sodium Chloride Flush 3 ML SYRINGE IVFLUSH ×3 (09:24→22:09)
[2025-05-26] MEDS: oxyCODONE HCl Immed Release 5 MG TABLET PO ×2 (09:24→22:15)
[2025-05-26 10:02] LABS: HBS Num1 1.80 mIU/mL (0-7.99); HBc Num1 0.20 S/CO (0.00-0.79); HBsAGNum1 1.32 S/CO (0.00-0.99); Hepatitis A Antibody IgM 0.31 Index (0-0.79); ~HepC Num1 7.48 S/CO (0.00-0.79); ~Hepatitis A Antibody IgM Nonreactive (Nonreactive); ~Hepatitis B Surface Antibody NONREACTIVE (Nonreactive); ~Hepatitis C Antibody Reactive (Nonreactive)
[2025-05-26 12:00] VITALS: BP 148/87; PULSE 66; RESP 20; O2SAT 95
[2025-05-26 12:19] LABS: HBsAGNum2 Nonreactive; HBsAGNum3 Nonreactive; Hepatitis B Surface Antigen NEGATIVE (Negative)
--- NOTE | 2025-05-26 14:54 | MHC.CM.PN ---
Per rounds, pt is not yet ready to DC, he requires ongoing care and specialty consultation for pulmonary emboli.
[2025-05-26 16:00] VITALS: BP 133/76; PULSE 61; RESP 16; TEMP 36.2; O2SAT 92
[2025-05-26 19:43] VITALS: BP 144/87; PULSE 69; RESP 16; TEMP 36.5; O2SAT 94
[2025-05-27] VITALS: BP 130/79; PULSE 67; RESP 16; TEMP 36.7; O2SAT 94
[2025-05-27 04:00] VITALS: BP 122/79; PULSE 66; RESP 16; TEMP 36.4; O2SAT 94
[2025-05-27 07:11] VITALS: BP 132/78; PULSE 62; RESP 18; TEMP 36.3; O2SAT 94
[2025-05-27 07:17] LABS: Hematocrit 41.2 % (42.0-52.0); Hemoglobin 14.2 g/dl (14.0-18.0); Mean Corpuscular HGB Conc 34.5 g/dl (31.0-36.0); Mean Corpuscular Hemoglobin 30.3 pg (27.0-33.0); Mean Corpuscular Volume 87.8 fL (80.0-98.0); NRBC Abs Auto 0.000 X10*3/uL (0.0-0.012); NRBC Pct Auto 0.0 /100WBC (0.0-0.2); Platelet Count 197 X10*3/uL (160-400); Red Blood Count 4.69 X10*6/uL (4.60-5.80); White Blood Count 7.1 X10*3/uL (4.8-10.8)
[2025-05-27 07:23] LABS: INTERNATIONAL NORM RATIO 1.8 (0.9-1.1); Prothrombin Time 20.8 SEC (10.9-12.4)
[2025-05-27 07:34] LABS: Alanine Aminotransferase 55 U/L (0-40); Albumin Level 4.4 g/dL (3.5-5.0); Alkaline Phosphatase 57 U/L (39-117); Anion Gap 11 (12-20); Aspartate Amino Transferase 53 U/L (5-37); Blood Urea Nitrogen 17 mg/dL (9-16); Calcium 8.8 mg/dL (8.4-10.2); Carbon Dioxide 29 mmol/L (22-29); Chloride 103 mmol/L (96-108); Creatinine Clr Calc Pharmacy 75.4; Estimated Glomerular Filt Rate > 60; Potassium 4.0 mmol/L (3.3-5.1); Sodium 139 mmol/L (135-145); Total Protein 7.4 g/dL (6.5-8.0)
[2025-05-27] MEDS: 0.9 % Sodium Chloride Flush 3 ML SYRINGE IVFLUSH (09:22)
[2025-05-27] MEDS: oxyCODONE HCl Immed Release 5 MG TABLET PO (09:32)
[2025-05-27 11:07] VITALS: BP 117/73; PULSE 75; RESP 18; TEMP 36.2; O2SAT 97
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
--- NOTE | 2025-05-27 13:22 | MHC.CM.PN ---
Patient has been medically cleared for dc to home today, self care. The last IMM was addressed on 05/25/2025.
== END 2025-05-27 15:27 | disposition home or self-care (01) | DRG 176 ==
LOC: HO.ED 16:06 → HO.EDOVER 18:46 → HO.IMC 23:11
PROVIDERS: Physician Assistant Medical; Student in an Organized Health Care Education/Training Program; Admitting Provider Internal Medicine; Emergency Provider Emergency Medicine Emergency Medical Services; PCP Internal Medicine; Visit Provider Student in an Organized Health Care Education/Training Program
DX: I26.99 Other pulmonary embolism without acute cor pulmonale (principal); I82.411 Acute embolism and thrombosis of right femoral vein; I82.451 Acute embolism and thrombosis of right peroneal vein; F41.9 Anxiety disorder, unspecified; F32.A Depression, unspecified; J45.909 Unspecified asthma, uncomplicated; I48.91 Unspecified atrial fibrillation; Z79.01 Long term (current) use of anticoagulants; Z79.899 Other long term (current) drug therapy
CPT/HCPCS: 36415; 80048; 80053; 80076; 83735; 83880; 84484; 85025; 85027; 85610; 85730; 86704; 86706; 86709; 86803; 87340; 93005; 93306; 93970; 99285; J1171; J1644; J1920; Q9957

== ENCOUNTER → 2025-05-24 15:09 | Outpatient (BNV) | payer OTHER, SELFPAY | PROVIDERS: Admitting Provider Internal Medicine; Emergency Provider Emergency Medicine Emergency Medical Services; PCP Internal Medicine; Visit Provider Internal Medicine Cardiovascular Disease | DX: R07.9 Chest pain, unspecified (principal) | CPT/HCPCS: 93010 ==

== ENCOUNTER 2025-05-24 18:41 | Outpatient (BNV) | payer OTHER, SELFPAY | END 2025-05-25 07:00 | PROVIDERS: Admitting Provider Internal Medicine; Emergency Provider Emergency Medicine Emergency Medical Services; PCP Internal Medicine; Visit Provider Internal Medicine Cardiovascular Disease | DX: I26.99 Other pulmonary embolism without acute cor pulmonale (principal); R07.9 Chest pain, unspecified | CPT/HCPCS: 93010; 93306 ==

== ENCOUNTER 2025-05-24 18:41 | Outpatient (BNV) | payer OTHER, SELFPAY | END 2025-05-25 18:37 | PROVIDERS: Admitting Provider Internal Medicine; Emergency Provider Emergency Medicine Emergency Medical Services; PCP Internal Medicine; Visit Provider Radiology Diagnostic Radiology | DX: I82.401 Acute embolism and thrombosis of unspecified deep veins of right lower extremity (principal) | CPT/HCPCS: 93970 ==

== ENCOUNTER → 2025-05-24 18:41 | Outpatient (BNV) | payer OTHER, SELFPAY | PROVIDERS: Admitting Provider Internal Medicine; Emergency Provider Emergency Medicine Emergency Medical Services; PCP Internal Medicine; Visit Provider Surgery Vascular Surgery | DX: I26.99 Other pulmonary embolism without acute cor pulmonale (principal) | CPT/HCPCS: 99222 ==

== ENCOUNTER → 2025-05-24 18:41 | Outpatient (BNV) | payer OTHER, SELFPAY | PROVIDERS: Admitting Provider Internal Medicine; Emergency Provider Emergency Medicine Emergency Medical Services; PCP Internal Medicine; Visit Provider Internal Medicine Medical Oncology | DX: I26.99 Other pulmonary embolism without acute cor pulmonale (principal); I82.401 Acute embolism and thrombosis of unspecified deep veins of right lower extremity | CPT/HCPCS: 99222 ==

== ENCOUNTER → 2025-05-24 18:41 | Outpatient (BNV) | payer OTHER, SELFPAY | PROVIDERS: Admitting Provider Internal Medicine; Emergency Provider Emergency Medicine Emergency Medical Services; PCP Internal Medicine; Visit Provider Internal Medicine | DX: I26.99 Other pulmonary embolism without acute cor pulmonale (principal) | CPT/HCPCS: 99232 ==

== ENCOUNTER 2025-05-29 11:50 | Outpatient (AMB) | payer OTHER, SELFPAY ==
[2025-05-29 12:15] LABS: Prothrombin Time Whole Bld POC 15.8 sec (11.1-13.5); ~PT, ~INR - Anti Coag Clinic 1.3 (0.9-1.1)
--- NOTE | 2025-05-29 12:26 | MHC.OFFVISCO ---
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- pt warfarin d/c while in pt- admitted for PE he has been on warfarin > 20 years -mostly compliant, hx of multiple DVTs prior to coming to [facility] and has filter Medications and supplements reviewed- On Eliquis now x 3 days Patient status: pt had covid April 18 2025 pt liver enzymes slightly elevated and to have GI f/u with ultrasound and hem/onc f/u appt Medications or supplements: started Eliquis while in pt Diet: as tolerated Denies any signs and symptoms of bleeding or clotting or unusual bruising Bleeding, bruising, clotting discussed Nutritional guidance given: eat healthy Dose: off warfarin - follow Eliquis instructions and make sure to take the medication every 12 hours F/U INR Date: only if resumes warfarin ?? Patient verbalizing understanding of instructions given. Anti-Coag Initial Assessment Social Hx Patient Tobacco Use Status: Never used Tobacco alcohol intake: former Alcohol intake frequency: does not drink Coding Level of Care Code Est Patient Level 1 Diagnoses Current use of anticoagulant therapy Z79.01 Assessment & Plan Assessment & Plan (1) Current use of anticoagulant therapy: Code(s): Z79.01 - senior care (current) use of anticoagulants Category: Medical
--- OUTSIDE RECORDS SUMMARY | 2025-05-29 12:57 | XMS_ITS | Encounter Summary ---
Author Organization [employer] Address [address] [facility] [address] [place] [address] Care Team Providers Care Exchange Trouble Shooter Name Role Phone Sancho Yoon MD Primary Care Provide r Reason for Visit * Reason Onset Date Comments Results 05/24/2025 Encounter Details Date Type Department Care Team ([facility] st Contact Info) Description 05/24/2025 Telephone [facility] [address] [place] [address] Sancho Yoon MD [address] [place] [address] Results Social History Tobacco Use Types Packs/Day Years [...] encounter Miscellaneous Notes * Telephone Encounter - Iris Beltran RN - 05/24/2025 2:08 PM EDT RN spoke with Dr. Castañeda about patient Ct-scan results from 05/24/25 showing acute PE involving the right lower lobe. documented in this encounter Plan of Treatment Upcoming Encounters Date Type Department Care Team (Late st Contact Info) Description 06/08/2025 10:00 AM EDT Office Visit [address] [address] Jayde Rosario MD [address] [place] [id number] 06/27/2025 9:45 AM EDT Office Visit [address] [address] 08/01/2025 1:15 PM EDT Office Visit [facility] [address] [place] [address] Sancho Yoon MD [address] [place] [address] 09/18/2025 8:00 AM EST Office Visit [facility] [address] [place] [address] Yi Sanchez documented as of this encounter Visit Diagnoses Not on filedocumented in this encounter Additional Health Concerns Assessment Noted Time PHQ-9 Depression Total Score: 0 09/29/20 24 9:48 AM EST documented as of this encounter Care Teams Exchange Trouble Shooter Relationship Specialty Start Date End Date Sancho Yoon MD [address] [place] [address] PCP - General Internal Medicine 08/16/14 documented as of this encounter
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
== END 2025-05-29 12:35 | disposition home or self-care (01) ==
LOC: HO.ACS 11:50
PROVIDERS: PCP Internal Medicine; Visit Provider Internal Medicine Medical Oncology
DX: Z79.01 Long term (current) use of anticoagulants (principal)

== ENCOUNTER → 2025-05-29 11:50 | Outpatient (BNVA) | payer OTHER, SELFPAY | PROVIDERS: PCP Internal Medicine; Visit Provider Internal Medicine Medical Oncology | DX: I26.99 Other pulmonary embolism without acute cor pulmonale (principal); I82.409 Acute embolism and thrombosis of unspecified deep veins of unspecified lower extremity; Z79.01 Long term (current) use of anticoagulants; Z51.81 Encounter for therapeutic drug level monitoring | CPT/HCPCS: 85610; 99211 ==

== ENCOUNTER 2025-05-30 16:52 | Emergency (ER) | payer OTHER, SELFPAY ==
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
[2025-05-30 17:02] VITALS: BP 142/85; PULSE 88; RESP 18; TEMP 36.5; O2SAT 97; BMI 28.5
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
--- NOTE | 2025-05-30 17:06 | ECG_ITS ---
Test Reason : SOB Blood Pressure : */* mmHG Vent. Rate : 76 BPM Atrial Rate : 76 BPM P-R Int : 160 ms QRS Dur : 102 ms QT Int : 408 ms P-R-T Axes : 12 -16 13 degrees QTcB Int : 459 ms Normal sinus rhythm Moderate voltage criteria for LVH, may be normal variant ( R in aVL , Long product ) Borderline ECG When compared with ECG of 25-May-2025 16:13, No significant change was found Referred By: Camryn Manuel Electronically Signed By: BHARAT HDEZ
[2025-05-30 17:29] LABS: MANUAL DIFF FLAG NO
[2025-05-30 17:32] LABS: Hematocrit 39.4 % (42.0-52.0); Hemoglobin 13.9 g/dl (14.0-18.0); Imm Gran Abs Auto 0.01 X10*3/uL (0.00-0.03); Imm Gran Pct Auto 0.2 % (0.0-0.4); Lymphocytes Absolute Auto 2.0 X10*3/uL (1.2-4.9); Mean Corpuscular HGB Conc 35.3 g/dl (31.0-36.0); Mean Corpuscular Hemoglobin 31.0 pg (27.0-33.0); Mean Corpuscular Volume 87.8 fL (80.0-98.0); NRBC Abs Auto 0.000 X10*3/uL (0.0-0.012); NRBC Pct Auto 0.0 /100WBC (0.0-0.2); Platelet Count 194 X10*3/uL (160-400); Red Blood Count 4.49 X10*6/uL (4.60-5.80); White Blood Count 5.6 X10*3/uL (4.8-10.8)
[2025-05-30 17:37] LABS: INTERNATIONAL NORM RATIO 1.7 (0.9-1.1); Prothrombin Time 19.9 SEC (10.9-12.4)
[2025-05-30 17:44] LABS: Alanine Aminotransferase 66 U/L (0-40); Albumin Level 4.9 g/dL (3.5-5.0); Alkaline Phosphatase 58 U/L (39-117); Anion Gap 13 (12-20); Aspartate Amino Transferase 49 U/L (5-37); Blood Urea Nitrogen 17 mg/dL (9-16); Calcium 8.9 mg/dL (8.4-10.2); Carbon Dioxide 25 mmol/L (22-29); Chloride 108 mmol/L (96-108); Creatinine Clr Calc Pharmacy 79.9; Estimated Glomerular Filt Rate > 60; Magnesium 2.2 mg/dL (1.6-2.6); Potassium 4.0 mmol/L (3.3-5.1); Sodium 142 mmol/L (135-145); Total Protein 7.9 g/dL (6.5-8.0)
[2025-05-30 17:52] LABS: Troponin-I High Sensitivity < 2.7 ng/L (<3.5-35.0)
[2025-05-30 18:21] VITALS: BP 166/86; PULSE 75; RESP 15; O2SAT 96
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
[2025-05-30 21:08] VITALS: BP 167/93; PULSE 98; RESP 20; TEMP 36.3; O2SAT 96
[2025-05-30] MEDS: Nitroglycerin 2 % Oint 1 GM Packet 0.5 INCH TRANSDERMA (22:35)
[2025-05-30 22:45] LABS: B Type Natriuretic Peptide < 10 pg/mL (<100)
[2025-05-30 23:01] LABS: Resp Syncy Virus RNA Qual PCR NEGATIVE (Negative); SARS COV2 PCR INHOUSE NEGATIVE (Negative)
--- NOTE | 2025-05-30 23:22 | PC.NURSE ---
This data analyst report writer assumed care of this Pt at 2300.
--- NOTE | 2025-05-31 00:39 | PC.NURSE ---
Nitro paste applied by previous RN taken off prior to d/c.
[2025-05-31 00:40] VITALS: BP 145/85; PULSE 75; RESP 18; TEMP 36.7; O2SAT 94
[2025-05-31 00:41] VITALS: BP 145/85; PULSE 75; RESP 18; TEMP 36.7; O2SAT 94
== END 2025-05-31 00:43 | disposition home or self-care (01) ==
PROVIDERS: Physician Assistant Medical; Emergency Provider Emergency Medicine; PCP Internal Medicine
DX: I26.99 Other pulmonary embolism without acute cor pulmonale (principal); R06.00 Dyspnea, unspecified; R06.02 Shortness of breath; I10 Essential (primary) hypertension; R53.1 Weakness; Z79.01 Long term (current) use of anticoagulants; Z79.899 Other long term (current) drug therapy
CPT/HCPCS: 36415; 71046; 80053; 83735; 83880; 84484; 85025; 85610; 87637; 93005; 99284

== ENCOUNTER → 2025-05-30 17:06 | Outpatient (BNV) | payer OTHER, SELFPAY | PROVIDERS: Emergency Provider Emergency Medicine; PCP Internal Medicine; Visit Provider Internal Medicine | DX: R06.02 Shortness of breath (principal) | CPT/HCPCS: 93010 ==

== ENCOUNTER → 2025-05-30 21:32 | Outpatient (BNV) | payer OTHER, SELFPAY | PROVIDERS: Emergency Provider Emergency Medicine; PCP Internal Medicine; Visit Provider Radiology Diagnostic Radiology | DX: R06.00 Dyspnea, unspecified (principal) | CPT/HCPCS: 71046 ==

== ENCOUNTER → 2025-06-12 13:14 | Outpatient (BNV) | payer OTHER, SELFPAY | PROVIDERS: PCP Internal Medicine; Referring Provider Internal Medicine; Visit Provider Internal Medicine Medical Oncology | DX: I26.99 Other pulmonary embolism without acute cor pulmonale (principal) | CPT/HCPCS: 99213 ==

== ENCOUNTER 2025-06-13 09:26 | Outpatient (REF) | payer OTHER, SELFPAY ==
--- NOTE | ~2025-06-13 | US_ITS ---
EXAMINATION: US ABDOMEN COMPLETE WITH LIVER ELASTOGRAPHY HISTORY: h/o hep c, liver fibrosis TECHNIQUE: Real-time grayscale ultrasound imaging of the abdomen was performed and images were reviewed. COMPARISON: Comparison is made with the prior examination dated 01/14/2024. FINDINGS: Liver: The right lobe of the liver measures 12.8 cm in size. The left lobe of the liver measures 10.5 cm in size. The liver demonstrates increased echotexture, consistent with steatosis. No focal mass or intrahepatic biliary ductal dilatation is identified. There is normal hepatopedal flow in the portal vein. Ultrasound elastography of the liver was performed with 10 separate measurements of the liver parenchyma with the patient in the supine position. Measurements were obtained approximately 2 cm below Freddy's capsule and perpendicular to the capsule. The median shear wave velocity is 1.44 m/s (previously 1.14 m/s). The interquartile range/median (IQR/median) is 0.31. Gallbladder and biliary tree: The gallbladder is surgically absent. The common bile duct is normal in caliber measuring 2 mm. Kidneys: The right kidney measures 12.4 cm in length and demonstrates a 2.3 x 2.0 x 1.9 cm cyst in the interpolar region. The left kidney measures 12.9 cm in length and demonstrates a 1.5 x 0.8 x 1.1 cm cyst at the lower pole. The kidneys are otherwise unremarkable, without evidence of solid masses, hydronephrosis, or calculi. Pancreas: The pancreatic head, neck, and body are unremarkable. The pancreatic tail is obscured by bowel gas. Spleen: The spleen is normal in size and contour, measuring 9.6 cm in length. Abdominal aorta and inferior vena cava: The visualized portions of the abdominal aorta and inferior vena cava are normal in caliber. There is no free fluid in the abdomen. US/US abdomen comp w elastography IMPRESSION: Hepatic steatosis. Bilateral renal cysts as described. The median shear wave velocity in the liver is 1.44 m/s, corresponding to a median liver stiffness of 6.35 kPa. The IQR/median value is 0.31. This is indicative of a poor quality data set, and the estimated liver stiffness may be unreliable. Findings are indicative of a low elastography value which rules out advanced chronic liver disease in asymptomatic patients. REFERENCE: Society of Radiologists in Ultrasound Liver Stiffness Thresholds (2020): LIVER STIFFNESS THRESHOLDS: *Shear wave velocity less than 1.3 m/s (Liver Stiffness equal or less than 5 kPa): High probability of being normal. *Shear wave velocity less than 1.7 m/s (Liver Stiffness less than 9 kPa): In the absence of other known clinical signs, rules out compensated advanced chronic liver disease. *Shear wave velocity between 1.7-2.1 m/s (Liver Stiffness 9-13 kPa): Suggestive of compensated advanced chronic liver disease but need further test for confirmation. *Shear wave velocity between 2.1-2.4 m/s (Liver Stiffness 13-17 kPa): Rules in compensated advanced chronic liver disease. *Shear wave velocity greater than 2.4 m/s (Liver Stiffness over 17 kPa): Suggestive of clinically significant portal hypertension. QUALITY OF DATA SET: *IQR/Median value equal or less than 0.15 implies a quality data set. *IQR/Median value over 0.15 implies a poor quality data set. SIGNIFICANT CHANGE FROM PRIOR EXAM: Significant change if liver stiffness measurement is 10% or greater from prior exam. OTHER CONSIDERATIONS: The stage of liver fibrosis may be overestimated in the setting of acute hepatitis, liver inflammation, elevated liver function tests, hepatic vascular congestion, obstructive cholestasis, non-fasting state, and infiltrative diseases such as amyloidosis and lymphoma. In some patients with NAFLD, the liver stiffness thresholds for compensated advanced chronic liver disease may be lower. In causes other than viral hepatitis and NAFLD, liver stiffness thresholds are not well established. Electronically signed by: Joshua Cooper MD 06/13/2025 11:10 AM EDT
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
== END 2025-06-13 09:27 | disposition home or self-care (01) ==
LOC: HO.US 09:26
PROVIDERS: PCP Internal Medicine; Visit Provider Internal Medicine
DX: K74.00 Hepatic fibrosis, unspecified (principal); Z86.19 Personal history of other infectious and parasitic diseases
CPT/HCPCS: 76700; 76981

== ENCOUNTER → 2025-06-13 10:30 | Outpatient (BNV) | payer OTHER, SELFPAY | PROVIDERS: PCP Internal Medicine; Visit Provider Radiology Diagnostic Radiology | DX: K76.0 Fatty (change of) liver, not elsewhere classified (principal) | CPT/HCPCS: 76700 ==

== ENCOUNTER → 2025-07-13 09:10 | Outpatient (REF) | payer OTHER, SELFPAY ==
--- OUTSIDE RECORDS SUMMARY | 2024-12-22 05:00 | XMS_ITS ---
Author Organization [facility] Address [address] [place] [address] Care Team Providers Care Chief Of Service Name Role Phone Raman Mayberry MD, Sancho Primary Care Provide Joshua Harvey [phone] REASON FOR VISIT Patient presents today for hx hep c Encounters Encounter Location Date Provider Diagnosis [facility] [address] [place] [address] 12/22/2024 Joshua Valdivia Plan Of Treatment Next Appt Details Provider Name:Joshua Valdivia , 05/01/2026 09:30:00 AM, [address], [address], [place], [address], Progress Notes * VENANCIO LARRYDOB:[birth year] (69 yo M)Acc No.[id number]:12/22/2024 Progress Notes Patient: Jen YU VENANCIO SUAREZ Provider: Jen Valdivia MD :1955 A ge:69 Y S ex:Male Date:12/22/2024 Address:[address], [place], [place] Pcp:Sancho sandhu MD Subjective: * Chief Complaints: [...] 0 12/22/2024 Generated for Jayla pollock/Megha/Arnieitting on: 0 07/13/2025 10:10 AM EDT
--- NOTE | 2025-07-13 09:13 | CA_ITS ---
Transthoracic Echocardiogram Patient (Last, First, Middle): Clint Beckford, Gender: M Date of : 1955 Age: 69 Procedure Date: 07/13/2025 Procedure Type: Transthoracic Echocardiogram Location: OP Height: 182. cm Weight: 99. kg BSA: 2.20 m2 Heart Rate: 64 bpm BP: 124 / 82 mmHg Improvement Director: SB Referring MD: Jayde Suarez MD Symptoms: PULMONARY EMBOLISM I26.99 Study Quality: Fair ECG Rhythm: Sinus Conclusions: - The left ventricular systolic function is low normal. The visually estimated ejection fraction is between 50-55%. - No obvious valvular pathology seen on this study. Findings Procedure Information The quality of the study was technically difficult. The study quality is limited by lung artifact. Left Ventricle Normal left ventricular cavity size. There is normal left ventricular wall thickness. The left ventricular systolic function is low normal. The visually estimated ejection fraction is between 50-55%. There is no evidence of regional wall motion abnormalities. There is mild septal asymmetric hypertrophy. Right Ventricle Normal right ventricular cavity size and systolic function. Atria Both atria are normal in size. Aortic Valve There is a normal trileaflet aortic valve. There is no aortic valve stenosis. There is trace (trivial) aortic valve regurgitation. Mitral Valve The mitral valve appears normal. There is trace mitral valve regurgitation. There is no mitral valve stenosis. Pulmonic Valve The pulmonic valve is likely normal. Tricuspid Valve Normal tricuspid valve structure. There is trace tricuspid valve regurgitation. There is no evidence of pulmonary hypertension. Great Vessels The asc aorta and aortic arch are normal in size. Venous The inferior vena cava was not well visualized. Pericardium/Pleural There is no evidence of pericardial effusion. Prior Study Comparison No significant change compared to prior study dated: 05/25/2025. Recommendations, Care & Conclusions No obvious valvular pathology seen on this study. Measurements 2D Linear Measurements IVSd: 1.16 0.6-0.9/0.6-1.0 cm LVIDd: 5.53 3.9-5.3/4.2-5.9 cm LVIDd Index: 2.51 2.4-3.2/2.2-3.1 cm/m2 LVIDs: 3.88 2.0-3.6 cm LVPWd: 0.74 0.7-1.1 cm LA Diam: 3.50 2.7-3.8/3.0-4.0 cm LAIDs Index: 1.59 1.5-2.3 cm/m2 LV Mass: 250.01 67-162/88-224 g LV Mass Index: 113.64 43-95/49-115 g/m2 LVOT Diam: 2.20 3.0+(-)1.3 cm 2D Systolic Function EF 4C: 52.90 >55% EF 2C: 34.10 >55% EF BiP: 44.10 >55% Mitral Valve MV Pk E: 0.59 MV PK A: 0.85 MV Decel Time: 223.00 E/A: 0.70 E'Lateral: 5.98 E'Medial: 5.22 E/E' Med: 11.30 E/E' Lat: 9.80 PHT: 65.00 MVA PHT: 3.38 Decel [place]: 2.64 Aortic Valve AoV Pk Julio: 0.83 AoV Pk Grad: 3.00 RADHA: 4.10 LVOT LVOT Pk Julio: 0.87 LVOT Mn Julio: 0.60 LVOT VTI: 0.18 LVOT Pk Grad: 3.00 LVOT Mn Grad: 2.00 LVOT Diam: 2.20 LVOT Area: 3.80 Diastolic Function MV Pk E: 0.59 MV Pk A: 0.85 E/A: 0.70 E'Medial: 5.22 E/E' Med: 11.30 E' Laterial: 5.98 E/E' Lat: 9.80 Right Ventricle TAPSE (mm): 18.40 TVS' Julio: 10.20 Tricuspid Valve TR Pk Julio: 1.70 TR Pk Grad: 12.00 RA Press: 3.00 RVSP: 15.00 Great Vessels Aorta Sinus of Valsalva: 4.00 2.0-3.5 cm Ao Asc: 3.80 2.1-3.4 cm Ao Arch: 3.40 Ao Desc: 2.00 Pulmonary Veins Pulm Vein S/D 2.40 Pulmonary Valve PV Pk Julio: 0.86 Peak PV Grad: 3.00 Updated in Other Vendor System with Status of Final Crow Kapadia MD electronically signed on 07/14/2025 12:26:19 PM with status of Final
--- OUTSIDE RECORDS SUMMARY | 2025-07-13 10:09 | XMS_ITS | Encounter Summary ---
Author Organization [employer] Address [address] [place] [address] Care Team Providers Care Senior Marketing Analyst Name Role Phone Sancho Yoon MD Primary Care Provide r Reason for Visit * Reason Onset Date Comments Appointment Request 03/22/2025 Encounter Details Date Type Department Care Team ([facility] Contact Info) Description 03/22/2025 Telephone [facility]INE [address] [place], [place] [phone] Sancho Yoon MD [address] [place] [address] Appointment Request Social History Tobacco Use Types [...] reschedule appointment from 03/07 Please contact pt [phone] documented in this encounter Plan of Treatment Upcoming Encounters Date Type Department Care Team (Late st Contact Info) Description 08/01/2025 1:15 PM EDT Office Visit [facility] MED[facility]INE [address] [place] [phone] Sancho Yoon MD [address] [place] [phone] 09/18/2025 8:00 AM EST Office Visit [facility] ADULT DENTAL [address] [place] [phone] Yi Sanchez 09/26/2025 9:45 AM EST Office Visit [facility]INE [address] [place] [phone] documented as of this encounter Visit Diagnoses Not on filedocumented in this encounter Additional Health Concerns Assessment Noted Time PHQ-9 Depression Total Score: 0 09/29/20 24 9:48 AM EST documented as of this encounter Care Teams Senior Marketing Analyst Relationship Specialty Start Date End Date Sancho Yoon MD [address] [place] [address] PCP - General Internal Medicine 08/16/14 documented as of this encounter
--- OUTSIDE RECORDS SUMMARY | 2025-07-13 10:09 | XMS_ITS | Encounter Summary ---
Author Organization [employer] Address [address] [place] [address] Care Team Providers Care Deodorizer Operator Name Role Phone Sancho Yoon MD Primary Care Provide r Reason for Visit * Reason Onset Date Comments Medication Question 05/03/2025 Encounter Details Date Type Department Care Team ([facility] st Contact Info) Description 05/03/[address] [facility] MEDICINE [address] [place] [address] Sancho Yoon MD [address] [place] [address] Medication Question Social History Tobacco Use Types Packs/Day Years [...] encounter Miscellaneous Notes * Telephone Encounter - Leatha Lin - 05/03/2025 9:52 AM EDT Tc from pt requesting a call back regarding medication below. Pt stated pharmacy is giving him 42 tablets and usually they give him 80 tablet. Pt would like to know why. Contact pt at [phone] documented in this encounter Plan of Treatment Upcoming Encounters Date Type Department Care Team (Late st Contact Info) Description 08/01/2025 1:15 PM EDT Office Visit [facility] MEDICINE [address] [place] [phone] Sancho Yoon MD [address] [place] [phone] 09/18/2025 8:00 AM EST Office Visit [facility] ADULT DENTAL [address] [place] [phone] Yi Sanchez 09/26/2025 9:45 AM EST Office Visit [facility] [address] [place] [phone] documented as of this encounter Visit Diagnoses Not on filedocumented in this encounter Additional Health Concerns Assessment Noted Time PHQ-9 Depression Total Score: 0 11/14/20 24 9:48 AM EST documented as of this encounter Care Teams Deodorizer Operator Relationship Specialty Start Date End Date Sancho Yoon MD [address] [place] [phone] PCP - General Internal Medicine 08/16/14 documented as of this encounter
--- OUTSIDE RECORDS SUMMARY | 2025-07-13 10:09 | XMS_ITS | Encounter Summary ---
Author Organization [employer] Address [address] [facility] [address] [place] [address] Care Team Providers Care All Around Patternmaker Name Role Phone Sancho Yoon MD Primary Care Provide r Reason for Visit * Reason Comments Med Refill Encounter Details Date Type Department Care Team ([facility] st Contact Info) Description 10/21/2023 Refill [facility] MEDICINE [address] [place], [place] [phone] Sancho Yoon MD [address] [place], [place] [phone] Pure hypercholesterolemia Social History Tobacco Use Types [...] Description 08/01/2025 1:15 PM EDT Office Visit [facility] MEDICINE [address] [place] [address] Sancho Yoon MD [address] [place] [address] 09/18/2025 8:00 AM EST Office Visit [facility] ADULT DENTAL [address] [place] [address] Yi Sanchez 09/26/2025 9:45 AM EST Office Visit [facility] MEDICINE [address] [place] [address] documented as of this encounter Visit Diagnoses Diagnosis Pure hypercholesterolemia documented in this encounter Additional Health Concerns Assessment Noted Time PHQ-9 Depression Total Score: 3 03/23/20 23 1:07 PM EDT documented as of this encounter Care Teams All Around Patternmaker Relationship Specialty Start Date End Date Sancho Yoon MD [address] [place] [address] PCP - General Internal Medicine 08/16/14 documented as of this encounter
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
--- OUTSIDE RECORDS SUMMARY | 2025-07-13 10:09 | XMS_ITS | Encounter Summary ---
Author Organization [employer] Address [address] [facility] 7t h Floor [place] [id number] Care Team Providers Care Wafer Polishing Lead Worker Name Role Phone Sancho Yoon MD Primary Care Provide r Reason for Visit * Reason Onset Date Comments Med Refill 04/17/2025 Encounter Details Date Type Department Care Team ([facility] st Contact Info) Description 04/17/2025 Telephone [facility] MEDICINE [address] [place] [address] Sancho Yoon MD [address] [place] [address] Med Refill Social History Tobacco Use Types [...] * Telephone Encounter - Susana Limon - 04/17/2025 9:07 AM EDT TC from pt requesting medication refill. Medications needing refill : oxyCODONE (Roxicodone) 5 MG immediate release tablet To be sent to: [facility] pharmacy documented in this encounter Plan of Treatment Upcoming Encounters Date Type Department Care Team (Late st Contact Info) Description 08/01/2025 1:15 PM EDT Office Visit [facility] MEDICINE [address] [place] [address] Sancho Yoon MD [address] [place] [address] 09/18/2025 8:00 AM EST Office Visit [facility] ADULT DENTAL [address] [place] [address] Yi Sanchez 09/26/2025 9:45 AM EST Office Visit [facility] MED[facility]INE [address] [place] [address] documented as of this encounter Visit Diagnoses Not on filedocumented in this encounter Additional Health Concerns Assessment Noted Time PHQ-9 Depression Total Score: 0 09/29/20 24 9:48 AM EST documented as of this encounter Care Teams Wafer Polishing Lead Worker Relationship Specialty Start Date End Date Sancho Yoon MD [address] [place] [address] PCP - General Internal Medicine 08/16/14 documented as of this encounter
--- OUTSIDE RECORDS SUMMARY | 2025-07-13 10:09 | XMS_ITS | Encounter Summary ---
Author Organization [employer] Address 75 [facility] 7t [place] [address] Care Team Providers Care Gut Puller Name Role Phone Sancho Yoon MD Primary Care Provide r Reason for Visit * Reason Onset Date Comments New Med Request 09/01/2023 Encounter Details Date Type Department Care Team ([facility] Contact Info) Description 09/01/2023 Telephone [facility] MEDICINE [address] [place] [address] Sancho Yoon MD [address] [place], [place] [phone] New Med Request Social History Tobacco Use [...] 09/08/2023 8:54 AM EDT Received call from [facility] [place]R, spoke to Yi. [...] Description 08/01/2025 1:15 PM EDT Office Visit [facility] MEDICINE [address] [place] [address] Sancho Yoon MD [address] [place] [address] 09/18/2025 8:00 AM EST Office Visit [facility] ADULT DENTAL [address] [place] [address] Yi Sanchez 09/26/2025 9:45 AM EST Office Visit [facility] MEDICINE [address] [place] [address] documented as of this encounter Visit Diagnoses Not on filedocumented in this encounter Additional Health Concerns Assessment Noted Time PHQ-9 Depression Total Score: 3 03/23/20 23 1:07 PM EDT documented as of this encounter Care Teams Gut Puller Relationship Specialty Start Date End Date Sancho Yoon MD [address] [place] [address] PCP - General Internal Medicine 08/16/14 documented as of this encounter
--- OUTSIDE RECORDS SUMMARY | 2025-07-13 10:09 | XMS_ITS | Encounter Summary ---
Author Organization [employer] Address 75 [facility] 7t [place] [address] Care Team Providers Care Curator Horticultural Museum Name Role Phone Sancho Yoon MD Primary Care Provide r Reason for Visit * Reason Comments Med Refill Encounter Details Date Type Department Care Team ([facility] st Contact Info) Description 10/21/2023 Refill [facility] MEDICINE [address] [place], [place] [phone] Sancho Yoon MD [address] [place], [place] [phone] Pure hypercholesterolemia Social History Tobacco Use Types [...] Description 08/01/2025 1:15 PM EDT Office Visit [facility] MEDICINE [address] [place] [address] Sancho Yoon MD [address] [place] [address] 09/18/2025 8:00 AM EST Office Visit [facility] ADULT DENTAL [address] [place] [address] Yi Sanchez 09/26/2025 9:45 AM EST Office Visit [facility] MEDICINE [address] [place] [address] documented as of this encounter Visit Diagnoses Diagnosis Pure hypercholesterolemia documented in this encounter Additional Health Concerns Assessment Noted Time PHQ-9 Depression Total Score: 3 03/23/20 23 1:07 PM EDT documented as of this encounter Care Teams Curator Horticultural Museum Relationship Specialty Start Date End Date Sancho Yoon MD [address] [place] [address] PCP - General Internal Medicine 08/16/14 documented as of this encounter
--- OUTSIDE RECORDS SUMMARY | 2025-07-13 10:09 | XMS_ITS | Encounter Summary ---
Author Organization [employer] Address [address] [facility] 7t [place] [address] Care Team Providers Care Hub Bander Name Role Phone Sancho Yoon MD Primary Care Provide r Encounter Details Date Type Department Care Team (Latest Contact Info) Description 10/26/2019 Abstract [facility] CONVERSIONS Dental, Provider, DDS Social History Tobacco [...] Description 08/01/2025 1:15 PM EDT Office Visit [facility] MEDICINE [address] [place] [address] Sancho Yoon MD [address] [place] [address] 09/18/2025 8:00 AM EST Office Visit [facility] ADULT DENTAL [address] [place] [address] Yi Sanchez 09/26/2025 9:45 AM EST Office Visit [facility] MEDICINE [address] [place] [address] documented as of this encounter Visit Diagnoses Not on filedocumented in this encounter Care Teams Hub Bander Relationship Specialty Start Date End Date Sancho Yoon MD [address] [place] [address] PCP - General Internal Medicine 08/16/14 documented as of this encounter
--- OUTSIDE RECORDS SUMMARY | 2025-07-13 10:09 | XMS_ITS | Encounter Summary ---
Author Organization [employer] Address [address] [facility] 7t [place] [address] Care Team Providers Care Central Service Tech Name Role Phone Sancho Yoon MD Primary Care Provide r Reason for Visit * Reason Onset Date Comments Med Refill 05/01/2025 Encounter Details Date Type Department Care Team ([facility] st Contact Info) Description 05/01/2025 Telephone [facility] MEDICINE [address] [place] [address] Sancho Yoon MD [address] [place] [address] Med Refill Social History Tobacco Use Types [...] immediate release tablet To be sent to: [facility] [place], [place] - [address] [place] [address] documented in this encounter Plan of Treatment Upcoming Encounters Date Type Department Care Team (Late st Contact Info) Description 08/01/2025 1:15 PM EDT Office Visit [facility] MEDICINE [address] [place] [address] Sancho Yoon MD [address] [place] [address] 09/18/2025 8:00 AM EST Office Visit [facility] ADULT DENTAL [address] [place] [address] Yi Sanchez 09/26/2025 9:45 AM EST Office Visit [facility] MEDICINE [address] [place] [address] documented as of this encounter Visit Diagnoses Not on filedocumented in this encounter Additional Health Concerns Assessment Noted Time PHQ-9 Depression Total Score: 0 09/29/20 24 9:48 AM EST documented as of this encounter Care Teams Central Service Tech Relationship Specialty Start Date End Date Sancho Yoon MD [address] [place] [address] PCP - General Internal Medicine 08/16/14 documented as of this encounter
--- OUTSIDE RECORDS SUMMARY | 2025-07-13 10:09 | XMS_ITS | Encounter Summary ---
Author Organization [employer] Address [address] [facility] 7t h Floor [place] [phone] Care Team Providers Care Surplus Property Disposal Agent Name Role Phone Sancho Yoon MD Primary Care Provide r Reason for Visit * Reason Onset Date Comments Med Refill 08/22/2024 Encounter Details Date Type Department Care Team ([facility] st Contact Info) Description 08/22/2024 Telephone [facility] MEDICINE [address] [place] [address] Sancho Yoon MD [address] [place], [place] [phone] Med Refill Social History Tobacco Use Types [...] immediate release tablet To be sent to: [facility] - [place], [place] - [address] [place] [address] documented in this encounter Plan of Treatment Upcoming Encounters Date Type Department Care Team (Late st Contact Info) Description 08/01/2025 1:15 PM EDT Office Visit [facility] MEDICINE [address] [place] [address] Sancho Yoon MD [address] [place] [address] 09/18/2025 8:00 AM EST Office Visit [facility] ADULT DENTAL [address] [place] [address] Yi Sanchez 09/26/2025 9:45 AM EST Office Visit [facility] MEDICINE [address] [place] [address] documented as of this encounter Visit Diagnoses Not on filedocumented in this encounter Additional Health Concerns Assessment Noted Time PHQ-9 Depression Total Score: 3 03/23/20 23 1:07 PM EDT documented as of this encounter Care Teams Surplus Property Disposal Agent Relationship Specialty Start Date End Date Sancho Yoon MD [address] [place] [address] PCP - General Internal Medicine 08/16/14 documented as of this encounter
--- OUTSIDE RECORDS SUMMARY | 2025-07-13 10:09 | XMS_ITS | Encounter Summary ---
Author Organization [employer] Address [address] [facility] 7t [place] [address] Care Team Providers Care Shipping And Receiving Name Role Phone Sancho Yoon MD Primary Care Provide r Encounter Details Date Type Department Care Team (Latest Contact Info) Description 04/16/2021 Abstract [facility] CONVERSIONS Dental, Provider, DDS Social History Tobacco [...] Description 08/01/2025 1:15 PM EDT Office Visit [facility] MEDICINE [address] [place] [address] Sancho Yoon MD [address] [place] [address] 09/18/2025 8:00 AM EST Office Visit [facility] ADULT DENTAL [address] [place] [address] Yi Sanchez 09/26/2025 9:45 AM EST Office Visit [facility] MEDICINE [address] [place] [address] documented as of this encounter Visit Diagnoses Not on filedocumented in this encounter Care Teams Shipping And Receiving Relationship Specialty Start Date End Date Sancho Yoon MD [address] [place] [address] PCP - General Internal Medicine 08/16/14 documented as of this encounter
--- OUTSIDE RECORDS SUMMARY | 2025-07-13 10:09 | XMS_ITS | Encounter Summary ---
Author Organization [employer] Address 75 [facility] 7t [place] [address] Care Team Providers Care Titrator Name Role Phone Sancho Yoon MD Primary Care Provide r Reason for Visit * Reason Onset Date Comments Med Refill 06/13/2025 Encounter Details Date Type Department Care Team ([facility] st Contact Info) Description 06/13/[address] [facility] MEDICINE [address] [place] [address] Sancho Yoon MD [address] [place] [address] Med Refill Social History Tobacco Use Types [...] encounter Miscellaneous Notes * Telephone Encounter - Mildred Todd - 06/13/2025 9:02 AM EDT TC from pt requesting medication refill. Medications needing refill : oxyCODONE (Roxicodone) 5 MG immediate release tablet To be sent to: [facility] documented in this encounter Plan of Treatment Upcoming Encounters Date Type Department Care Team (Late st Contact Info) Description 08/01/2025 1:15 PM EDT Office Visit [facility] MEDICINE [address] [place] [address] Sancho Yoon MD [address] [place] [address] 09/18/2025 8:00 AM EST Office Visit [facility] ADULT DENTAL [address] [place] [address] Yi Sanchez 09/26/2025 9:45 AM EST Office Visit [facility] MEDICINE [address] [place] [address] documented as of this encounter Visit Diagnoses Not on filedocumented in this encounter Additional Health Concerns Assessment Noted Time PHQ-9 Depression Total Score: 0 09/29/20 24 9:48 AM EST documented as of this encounter Care Teams Titrator Relationship Specialty Start Date End Date Sancho Yoon MD [address] [place] [address] PCP - General Internal Medicine 08/16/14 documented as of this encounter
--- OUTSIDE RECORDS SUMMARY | 2025-07-13 10:09 | XMS_ITS | Encounter Summary ---
Author Organization [employer] Address 75 [facility] 7t [place] [address] Care Team Providers Care Dry Starch Operator Name Role Phone Sancho Yoon MD Primary Care Provide r Encounter Details Date Type Department Care Team (Latest Contact Info) Description 07/04/[address] [facility] CONVERSIONS Dental, Provider, DDS Social History [...] Description 08/01/2025 1:15 PM EDT Office Visit [facility] MEDICINE [address] [place] [address] Sancho Yoon MD [address] [place] [address] 09/18/2025 8:00 AM EST Office Visit [facility] ADULT DENTAL [address] [place] [address] Yi Sanchez 09/26/2025 9:45 AM EST Office Visit [facility] MEDICINE [address] [place] [address] documented as of this encounter Visit Diagnoses Not on filedocumented in this encounter Care Teams Dry Starch Operator Relationship Specialty Start Date End Date Sancho Yoon MD [address] [place] [address] PCP - General Internal Medicine 08/16/14 documented as of this encounter
--- OUTSIDE RECORDS SUMMARY | 2025-07-13 10:09 | XMS_ITS | Encounter Summary ---
Author Organization [employer] Address [address] [facility] [address] 7[address] [place] [address] Care Team Providers Care Print Line Inspector Name Role Phone Sancho Yoon MD Primary Care Provide r Reason for Visit * Reason Comments Med Refill Encounter Details Date Type Department Care Team ([facility] st Contact Info) Description 04/18/2025 Refill [facility] WALK-IN [facility]ENTER [address] [place] [address] Miesha Schwartz DO [address] [place] [address] Social History Tobacco Use Types Packs/Day Years [...] Description 08/01/2025 1:15 PM EDT Office Visit [facility] MEDICINE [address] [place] [phone] Sancho Yoon MD [address] [place] [phone] 09/18/2025 8:00 AM EST Office Visit [facility] ADULT DENTAL [address] [place] [address] Yi Sanchez 09/26/2025 9:45 AM EST Office Visit [facility] MEDICINE [address] [place] [phone] documented as of this encounter Visit Diagnoses Not on filedocumented in this encounter Additional Health Concerns Assessment Noted Time PHQ-9 Depression Total Score: 0 09/29/20 24 9:48 AM EST documented as of this encounter Care Teams Print Line Inspector Relationship Specialty Start Date End Date Sancho Yoon MD [address] [place] [phone] PCP - General Internal Medicine 08/16/14 documented as of this encounter
--- OUTSIDE RECORDS SUMMARY | 2025-07-13 10:09 | XMS_ITS | Encounter Summary ---
Author Organization [employer] Address [address] [facility] 7t [place] [address] Care Team Providers Care Foundry Melt Supervisor Name Role Phone Sancho Yoon MD Primary Care Provide r Reason for Visit * Reason Onset Date Comments Med Refill 04/03/2025 Encounter Details Date Type Department Care Team ([facility] st Contact Info) Description 04/03/2025 Telephone [facility] MEDICINE [address] [place] [address] Sancho Yoon MD 230 [place] [address] Med Refill Social History Tobacco Use Types [...] To be sent to: [facility] documented in this encounter Plan of Treatment Upcoming Encounters Date Type Department Care Team (Late st Contact Info) Description 08/01/2025 1:15 PM EDT Office Visit [facility] MEDICINE [address] [place] [phone] Sancho Yoon MD [address] [place] [address] 09/18/2025 8:00 AM EST Office Visit [facility] ADULT DENTAL [address] [place] [phone] Yi Sanchez 09/26/2025 9:45 AM EST Office Visit [facility] MEDICINE [address] [place] [phone] documented as of this encounter Visit Diagnoses Not on filedocumented in this encounter Additional Health Concerns Assessment Noted Time PHQ-9 Depression Total Score: 0 09/29/20 24 9:48 AM EST documented as of this encounter Care Teams Foundry Melt Supervisor Relationship Specialty Start Date End Date Sancho Yoon MD [address] [place] [address] PCP - General Internal Medicine 08/16/14 documented as of this encounter
--- OUTSIDE RECORDS SUMMARY | 2025-07-13 10:09 | XMS_ITS | Encounter Summary ---
Author Organization [employer] Address [address] [facility] [address]t h Floor [place] [phone] Care Team Providers Care Protection Chief Industrial Plant Name Role Phone Sancho Yoon MD Primary Care Provide r Encounter Details Date Type Department Care Team (Late st Contact Info) Description 10/29/2022 Orders Only [facility] MEDICINE [address] [place] [address] [phone] Sancho Yoon MD [address] [place] [address] [phone] Pleural scarring (Primary Dx); Abnormal chest CT [...] Description 08/01/2025 1:15 PM EDT Office Visit [facility] MEDICINE [address] [place] [address] [phone] Sancho Yoon MD [address] [place], [place] [phone] 09/18/2025 8:00 AM EST Office Visit [facility] ADULT DENTAL 230 [place] [address] Yi Sanchez 09/26/2025 9:45 AM EST Office Visit [facility] [address] [facility] [place] [address] documented as of this encounter Procedures Procedure [...] EST) Protime 42.3(H) 11.1 - 13.5 sec [facility] 12/18/2022 2:35 PM EST 12/18/2022 2:37 PM EST us [facility] External Provider LAB BLO OD ORDERABLES Final Result [facility] [address] [place] [address] [phone] * (ABNORMAL) ~PT, ~INR - ANTI COAG CLINIC (12/18/2022 2:35 PM EST) Prothrombin Time INR 3.5(H) 0.9 - 1.1 [facility] Comment:METER #: [id number] TERNATIONAL NORMALIZED RATIO (INR) REFERENCE RANGES Reference [...] 2:35 PM EST 12/18/2022 2:37 PM EST [facility] External Provider LAB BLO OD ORDERABLES Final Result Performing Organization Address [facility] Co de Phone Number [facility] [address] [place] [address] [phone] * (ABNORMAL) PROTHROMBIN TIME WHOLE BLD POC (12/11/2022 2:35 PM EST) Protime 36.7(H) 11.1 - 13.5 sec [facility] 12/11/2022 2:35 PM EST 12/11/2022 2:36 PM EST [facility] External Provider LAB BLO OD ORDERABLES Final Result Performing Organization Address [facility] de Phone Number [facility] [address] [place] [address] [phone] * (ABNORMAL) ~PT, ~INR - ANTI COAG CLINIC (12/11/2022 2:35 PM EST) Prothrombin Time INR 3.1(H) 0.9 - 1.1 [facility] Comment:METER #: [id number] TERNATIONAL NORMALIZED RATIO (INR) REFERENCE RANGES Reference [...] 2:35 PM EST 12/11/2022 2:36 PM EST [facility] External Provider LAB BLO OD ORDERABLES Final Result Performing Organization Address [facility] de Phone Number [facility] [address] [place] [phone] * (ABNORMAL) PROTHROMBIN TIME WHOLE BLD POC (12/04/2022 3:39 PM EST) Protime 56.8(H) 11.1 - 13.5 sec [facility] 12/04/2022 3:39 PM EST 12/04/2022 3:40 PM EST [facility] External Provider LAB BLO OD ORDERABLES Final Result Performing Organization Address [facility] Phone Number [facility] [address] [place] [phone] * (ABNORMAL) ~PT, ~INR - ANTI COAG CLINIC (12/04/2022 3:39 PM EST) Prothrombin Time INR 4.7(H) 0.9 - 1.1 [facility] Comment:METER #: [id number] TERNATIONAL NORMALIZED RATIO (INR) REFERENCE RANGES Reference [...] 3:39 PM EST 12/04/2022 3:40 PM EST Result [facility] External Provider LAB BLO OD ORDERABLES Final Result Performing Organization Address [facility] de Phone Number [facility] [address] [place] [address] [place] [phone] * (ABNORMAL) Liver Fibrosis, FibroTest-ActiTest Panel (12/04/2022 10:15 AM EST) Liver Fibrosis Score 0.58 [facility] Liver Fibrosis Stage F2 [facility] Liver Fibrosis Interpretation SEE NOTE [facility] Comment:moderate fibrosisFib ro Test Score [...] (severe fibrosis) Nec Inflam Act Score 0.41 [facility] Nec Inflam Act Grade A1-A2 [facility] Nec Inflam Act Interpretation SEE NOTE [facility] Comment:minimal activityActi Test Score (a) Metavir Score a>=0 and a<=0.17 : A0 (no activity)a>0.17 and a<=0.29 : A0-A1 (no activity)a>0.29 and a<=0.36 : A1 (minimal activity)a>0.36 and a<=0.52 : A1-A2 (minimal activity)a>0.52 and a<=0.60 : A2 (significant activity)a>0.60 and a<=0.62 : A2-A3 (significant activity)a>0.62 and a<=1.00 : A3 (severe activity) ZTA-Veote-0-Macroglo bulin 275 106 - 279 mg/dL [facility] FIB-Haptoglobin 120 43 - 212 mg/dL [facility] FIB-Apolipoprotein A1 171 94 - 176 mg/dL [facility] FIB-Total Bilirubin 0.8 0.2 - 1.2 mg/dL [facility] FIB-GGT 64 3 - 70 U/L [facility] FIB-ALT 53(A) 9 - 46 U/L [facility] Reference ID [id number] [facility] Footnote SEE NOTE [facility] Comment: The reliability of results [...] and C.The performance characteristics have been determined by[employer] [facility] [place]. Ithas not been cleared or approved by the U.S. Food and DrugAdministration. Performance characteristics refer to theanalytical performance of the test.[employer], the associated logo, [employer] and all associated [employer] holloway are theregistered trademarks of [employer]. All third partymarks - (R) and (TM) - are the property of their respectiveowners. (C) [id number] [employer]. Allrights reserved.THIS TEST WAS PERFORMED AT:[employer] [id number] [facility] [place] [address]IEWCYJOHN JERNIGAN MD,PHD,DAYDAY 12/04/2022 10:1 5 AM EST 12/04/2022 10:15 AM EST us [facility] External Provider LAB BLO OD ORDERABLES Final Result Performing Organization Address [facility]/ZIP Co de Phone Number [facility] [address] [place] [address] [phone] * Alphafetoprotein, Tumor Marker (12/04/2022 10:15 AM EST) Alpha Fetoprotein 2.5 <6.1 ng/mL [facility] Comment:This test was perfor med using the Deacon Coulterchemiluminescent method. Values obtained fromdifferent assay methods cannot be usedinterchangeably. AFP levels, regardless ofvalue, should not be interpreted as absoluteevidence of the presence or absence of disease.THIS TEST WAS PERFORMED AT:[employer] [address] ([address] [id number] PALOMARES MD 12/04/2022 10:1 5 AM EST 12/04/2022 10:15 AM EST [facility] External Provider LAB BLO OD ORDERABLES Final Result Performing Organization Address City/[facility]/ZIP Co de Phone Number [facility] [address] [place] [address] [phone] * (ABNORMAL) Hepatic Function Panel (12/04/2022 10:15 AM EST) Bilirubin, Total 1.0 0.0 - 1.0 mg/dL [facility] Bilirubin, Direct 0.3 0.0 - 0.5 mg/dL [facility] Aspartate Amino Transferase 35 5 - 37 U/L [facility] Alanine Aminotransferase 58(H) 0 - 40 U/L [facility] Total Protein 7.2 6.5 - 8.0 g/dL [facility] Albumin Level 4.2 3.5 - 5.0 g/dL [facility] Alkaline Phosphatase 63 39 - 117 U/L [facility] 12/04/2022 10:1 5 AM EST 12/04/2022 10:15 AM EST us [facility] External Provider LAB BLO OD ORDERABLES Final Result [facility] [address] [place] [address] [phone] * (ABNORMAL) CBC auto differential (12/04/2022 10:15 AM EST) White Blood Count 6.9 4.8 - 10.8 X10*3/uL [facility] Red Blood Count 4.93 4.60 - 5.80 X10*6/uL [facility] Hemoglobin 15.0 14.0 - 18.0 g/dl [facility] Hematocrit 44.5 42.0 - 52.0 % [facility] Mean Corpuscular Volume 90.3 80.0 - 98.0 fL [facility] Mean Corpuscular Hemoglobin 30.4 27.0 - 33.0 pg [facility] Mean Corpuscular HGB Conc 33.7 31.0 - 36.0 g/dl [facility] Red Cell Distribution Width 13.4 11.0 - 16.0 % [facility] Platelet Count 218 160 - 400 X10*3/uL [facility] Mean Platelet Volume 10.0 9.4 - 12.4 fL [facility] Neutrophils Percent Auto 34.1(L) 45 - 73 % [facility] Imm Gran Pct Auto 0.4 0.0 - 0.4 % [facility] Lymphocytes Percent Auto 52.2(H) 20 - 40 % [facility] Monocytes Percent Auto 9.0 2 - 11 % [facility] Eosinophils Percent Auto 3.9 0 - 4 % [facility] Basophils Percent Auto 0.4 0 - 2 % [facility] NRBC Pct Auto 0.0 0.0 - 0.2 /100WBC [facility] Neutrophils Absolute Auto 2.3 2.0 - 8.3 x10*3/uL [facility] Imm Gran Abs Auto 0.03 0.00 - 0.03 X10*3/uL [facility] Lymphocytes Absolute Auto 3.6 1.2 - 4.9 X10*3/uL [facility] Monocytes Absolute Auto 0.6 0.1 - 1.2 X10*3/uL [facility] Eosinophils Absolute Auto 0.3 0.0 - 0.4 X10*3/uL [facility] Basophils Absolute Auto 0.0 0.0 - 0.2 X10*3/uL [facility] NRBC Abs Auto 0.000 0.0 - 0.012 X10*3/uL [facility] 12/04/2022 10:1 5 AM EST 12/04/2022 10:15 AM EST [facility] External Provider LAB BLO OD ORDERABLES Final Result Performing Organization Address [facility] Co de Phone Number [facility] [address] [place] [phone] * POCT Creatinine GFR (12/04/2022 9:49 AM EST) [facility] POCT Creatinine 0.9 0.5 - 1.4 mg/dL [facility] GFR POC >60 [facility] Comment:Chronic Kidney Disea se: Estimated GFR < 60 mL/min/1.49h6Xosfvp Kidney Disease: Estimated GFR < 15 mL/min/1.73m2 12/04/2022 9:49 AM EST 12/04/2022 4:06 PM EST Narrative [facility] - 12/04/2022 4:07 PM EST [id number] [facility] Exter nal Provider LAB POINT OF CARE TEST DOCKED DEVICE ORDERABLES Final Result Performing Organization Address [facility] Co de Phone Number [facility] [address] [place] [phone] * (ABNORMAL) PROTHROMBIN TIME WHOLE BLD POC (12/03/2022 2:54 PM EST) Protime 69.3(H) 11.1 - 13.5 sec [facility] 12/03/2022 2:54 PM EST 12/03/2022 3:30 PM EST Result [facility] External Provider LAB BLO OD ORDERABLES Final Result Performing Organization Address [facility] Co de Phone Number [facility] [address] [place] [phone] * (ABNORMAL) ~PT, ~INR - ANTI COAG CLINIC (12/03/2022 2:54 PM EST) [facility] Prothrombin Time INR 5.8(HH) 0.9 - 1.1 [facility] Comment:METER #: [id number] ctor NotifiedINTERNATIONAL NORMALIZED RATIO (INR) REFERENCE RANGES [...] PM EST 12/03/2022 3:30 PM EST Result [facility] External Provider LAB BLO OD ORDERABLES Final Result Performing Organization Address City/[facility] Co de Phone Number [facility] [address] [place] [phone] * (ABNORMAL) PROTHROMBIN TIME WHOLE BLD POC (11/26/2022 2:46 PM EST) Pathologist [facility] Protime 40.1(H) 11.1 - 13.5 sec [facility] 11/26/2022 2:46 PM EST 11/26/2022 2:47 PM EST [facility] External Provider LAB BLO OD ORDERABLES Final Result Performing Organization Address [facility]/ZIP Co de Phone Number [facility] [address] [place] [address] [phone] * (ABNORMAL) ~PT, ~INR - ANTI COAG CLINIC (11/26/2022 2:46 PM EST) Prothrombin Time INR 3.3(H) 0.9 - 1.1 [facility] Comment:METER #: [id number] TERNATIONAL NORMALIZED RATIO (INR) REFERENCE RANGES Reference [...] 2:46 PM EST 11/26/2022 2:47 PM EST [facility] External Provider LAB BLO OD ORDERABLES Final Result Performing Organization Address [facility]/ZIP Co de Phone Number [facility] [address] [place] [phone] * (ABNORMAL) PROTHROMBIN TIME WHOLE BLD POC (11/05/2022 3:33 PM EST) Protime 33.6(H) 11.1 - 13.5 sec [facility] 11/05/2022 3:33 PM EST 11/05/2022 3:35 PM EST [facility] External Provider LAB BLO OD ORDERABLES Final Result Performing Organization Address City/[facility]/ZIP Co de Phone Number [facility] [address] [place] [phone] * (ABNORMAL) ~PT, ~INR - ANTI COAG CLINIC (11/05/2022 3:33 PM EST) Prothrombin Time INR 2.8(H) 0.9 - 1.1 [facility] Comment:METER #: [id number] TERNATIONAL NORMALIZED RATIO (INR) REFERENCE RANGES Reference [...] 3:33 PM EST 11/05/2022 3:35 PM EST [facility] External Provider LAB BLO OD ORDERABLES Final Result Performing Organization Address City/[facility]/ZIP Co de Phone Number [facility] [address] [place] [phone] * (ABNORMAL) PROTHROMBIN TIME WHOLE BLD POC (10/29/2022 3:11 PM EST) Pathologist [facility] Protime 45.2(H) 11.1 - 13.5 sec [facility] 10/29/2022 3:11 PM EST 10/30/2022 7:55 AM EST [facility] External Provider LAB BLO OD ORDERABLES Final Result Performing Organization Address City/[facility] Co de Phone Number [facility] [address] [place] [phone] * (ABNORMAL) ~PT, ~INR - ANTI COAG CLINIC (10/29/2022 3:11 PM EST) Prothrombin Time INR 3.8(H) 0.9 - 1.1 [facility] Comment:METER #: [id number] TERNATIONAL NORMALIZED RATIO (INR) REFERENCE RANGES Reference [...] 3:11 PM EST 10/30/2022 7:55 AM EST [facility] External Provider LAB BLO OD ORDERABLES Final Result [facility] [address] [place] [address] [phone] documented in this encounter Visit Diagnoses Diagnosis Pleural scarring- Primary Pleurisy without mention of effusion or current tuberculosis Abnormal chest CT Nonspecific (abnormal) findings on radiological and other examination of other intrathoracic organs documented in this encounter Care Teams Protection Chief Industrial Plant Relationship Specialty Start Date End Date Sancho Yoon MD [address] [place] [phone] PCP - General Internal Medicine 08/16/14 documented as of this encounter
--- OUTSIDE RECORDS SUMMARY | 2025-07-13 10:09 | XMS_ITS | Encounter Summary ---
Author Organization [employer] Address [address] [facility] [facility] [address] [place] [address] Care Team Providers Care Digital Project Coordinator Name Role Phone Sancho Yoon MD Primary Care Provide r Reason for Visit * Reason Comments Med Refill Encounter Details Date Type Department Care Team ([facility] Contact Info) Description 02/22/[address] [facility]EDS [address] [place], [place] [phone] Sancho Yoon MD [address] [place], [place] [phone] Other chronic pain Social History Tobacco Use [...] Description 08/01/2025 1:15 PM EDT Office Visit [facility] MEDICINE [address] [place] [phone] Sancho Yoon MD [address] [place] [phone] 09/18/2025 8:00 AM EST Office Visit [facility] ADULT DENTAL [address] [place] [address] Yi Sanchez 09/26/2025 9:45 AM EST Office Visit [facility] MEDICINE [address] [place] [phone] documented as of this encounter Visit Diagnoses Diagnosis Other chronic pain documented in this encounter Additional Health Concerns Assessment Noted Time PHQ-9 Depression Total Score: 0 09/29/20 24 9:48 AM EST documented as of this encounter Care Teams Digital Project Coordinator Relationship Specialty Start Date End Date Sancho Yoon MD [address] [place] [phone] PCP - General Internal Medicine 08/16/14 documented as of this encounter
--- OUTSIDE RECORDS SUMMARY | 2025-07-13 10:09 | XMS_ITS | Encounter Summary ---
Author Organization [employer] Address [address] [facility] [address]t [place] [address] Care Team Providers Care Retail Client Manager Name Role Phone Sancho Yoon MD Primary Care Provide r Reason for Visit * Reason Comments Med Refill Encounter Details Date Type Department Care Team ([facility] Contact Info) Description 02/27/2025 Refill [facility] MEDICINE [address] [place], [place] [phone] Sancho Yoon MD [address] [place], [place] [phone] Benign prostatic hyperplasia with lower urinary tract [...] Description 08/01/2025 1:15 PM EDT Office Visit [facility] MEDICINE [address] [place] [phone] Sancho Yoon MD [address] [place] [address] 09/18/2025 8:00 AM EST Office Visit [facility] ADULT DENTAL [address] [place] [phone] Yi Sanchez 09/26/2025 9:45 AM EST Office Visit [facility] MEDICINE [address] [place] [phone] documented as of this encounter Visit Diagnoses Diagnosis Benign prostatic hyperplasia with lower urinary tract symptoms Other obstructive and reflux uropathy documented in this encounter Additional Health Concerns Assessment Noted Time PHQ-9 Depression Total Score: 0 09/29/20 24 9:48 AM EST documented as of this encounter Care Teams Retail Client Manager Relationship Specialty Start Date End Date Sancho Yoon MD [address] [place] [phone] PCP - General Internal Medicine 08/16/14 documented as of this encounter
--- OUTSIDE RECORDS SUMMARY | 2025-07-13 10:10 | XMS_ITS | Encounter Summary ---
Author Organization [employer] Address 75 [facility] 7t [place] [address] Care Team Providers Care Health Education Director Name Role Phone Sancho Yoon MD Primary Care Provide r Reason for Visit * Reason Comments Med Refill Encounter Details Date Type Department Care Team ([facility] Contact Info) Description 05/02/2024 Refill [facility] MED & PEDS [address] [place], [place] [phone] Sancho Yoon MD 230 [place], [place] [phone] Other chronic pain Social History Tobacco Use [...] Description 08/01/2025 1:15 PM EDT Office Visit [facility] MEDICINE 230 [place] [address] Sancho Yoon MD 230 [place] [address] 09/18/2025 8:00 AM EST Office Visit [facility] ADULT DENTAL 230 [place] [address] Yi Sanchez 09/26/2025 9:45 AM EST Office Visit [facility] MEDICINE 230 [place] [address] documented as of this encounter Visit Diagnoses Diagnosis Other chronic pain documented in this encounter Additional Health Concerns Assessment Noted Time PHQ-9 Depression Total Score: 3 03/23/20 23 1:07 PM EDT documented as of this encounter Care Teams Health Education Director Relationship Specialty Start Date End Date Sancho Yoon MD 230 [place] [address] PCP - General Internal Medicine 08/16/14 documented as of this encounter
--- OUTSIDE RECORDS SUMMARY | 2025-07-13 10:10 | XMS_ITS | Encounter Summary ---
Author Organization [employer] Address 75 [facility] 7t h Floor [place] [id number] Care Team Providers Care Message Broker Developer Name Role Phone Sancho Yoon MD Primary Care Provide r Reason for Visit * Reason Onset Date Comments Med Refill 06/27/2024 Encounter Details Date Type Department Care Team ([facility] st Contact Info) Description 06/27/2024 Telephone [facility] MEDICINE 230 [place] [address] Sancho Yoon MD 230 [place] [address] Med Refill Social History Tobacco Use Types [...] immediate release tablet To be sent to: [facility] - [place], [place] - [address] [place] [address] documented in this encounter Plan of Treatment Upcoming Encounters Date Type Department Care Team (Late st Contact Info) Description 08/01/2025 1:15 PM EDT Office Visit [facility] MEDICINE [address] [place] [address] Sancho Yoon MD [address] [place] [address] 09/18/2025 8:00 AM EST Office Visit [facility] ADULT DENTAL [address] [place] [address] Yi Sanchez 09/26/2025 9:45 AM EST Office Visit [facility] MEDICINE [address] [place] [address] documented as of this encounter Visit Diagnoses Not on filedocumented in this encounter Additional Health Concerns Assessment Noted Time PHQ-9 Depression Total Score: 3 03/23/20 23 1:07 PM EDT documented as of this encounter Care Teams Message Broker Developer Relationship Specialty Start Date End Date Sancho Yoon MD 230 [place] [address] PCP - General Internal Medicine 08/16/14 documented as of this encounter
--- OUTSIDE RECORDS SUMMARY | 2025-07-13 10:10 | XMS_ITS | Encounter Summary ---
Author Organization [employer] Address 75 [facility] 7t [place] [address] Care Team Providers Care And Drying Supervisor Cooking Casing Name Role Phone Sancho Yoon MD Primary Care Provide r Reason for Visit * Reason Onset Date Comments Appointment Request 04/05/2024 Encounter Details Date Type Department Care Team ([facility] Contact Info) Description 04/05/2024 Telephone [facility] MEDICINE 230 [place], [place] [phone] Sancho Yoon MD 230 [place], [place] [phone] Appointment Request Social History Tobacco Use Types [...] to know if there is any upcoming ASSEMBLER ADJUSTER visits to be scheduled. Please contact pt at [phone]. documented in this encounter Plan of Treatment Upcoming Encounters Date Type Department Care Team (Late st Contact Info) Description 08/01/2025 1:15 PM EDT Office Visit [facility] MEDICINE [address] [place] [address] Sancho Yoon MD [address] [place] [address] 09/18/2025 8:00 AM EST Office Visit [facility] ADULT DENTAL [address] [place] [address] Yi Sanchez 09/26/2025 9:45 AM EST Office Visit [facility] MEDICINE [address] [place] [address] documented as of this encounter Visit Diagnoses Not on filedocumented in this encounter Additional Health Concerns Assessment Noted Time PHQ-9 Depression Total Score: 3 03/23/20 23 1:07 PM EDT documented as of this encounter Care Teams And Drying Supervisor Cooking Casing Relationship Specialty Start Date End Date Sancho Yoon MD [address] [place] [address] PCP - General Internal Medicine 08/16/14 documented as of this encounter
--- OUTSIDE RECORDS SUMMARY | 2025-07-13 10:10 | XMS_ITS | Encounter Summary ---
Author Organization [employer] Address 75 [facility] 7t h Floor [place] [phone] Care Team Providers Care Edge Sander Name Role Phone Sancho Yoon MD Primary Care Provide r Reason for Visit * Reason Onset Date Comments Med Refill 07/25/2024 Encounter Details Date Type Department Care Team ([facility] st Contact Info) Description 07/25/2024 Telephone [facility] MEDICINE 230 [place], [place] [phone] Sancho Yoon MD 230 [place] [address] Med Refill Social History Tobacco Use Types [...] immediate release tablet To be sent to: [facility] - [place], [place] - [address] [place] [address] documented in this encounter Plan of Treatment Upcoming Encounters Date Type Department Care Team (Late st Contact Info) Description 08/01/2025 1:15 PM EDT Office Visit [facility] MEDICINE 230 [place] [address] Sancho Yoon MD [address] [place] [address] 09/18/2025 8:00 AM EST Office Visit [facility] ADULT DENTAL 230 [place] [address] Yi Sanchez 09/26/2025 9:45 AM EST Office Visit [facility] MEDICINE 230 [place] [address] documented as of this encounter Visit Diagnoses Not on filedocumented in this encounter Additional Health Concerns Assessment Noted Time PHQ-9 Depression Total Score: 3 03/23/20 23 1:07 PM EDT documented as of this encounter Care Teams Edge Sander Relationship Specialty Start Date End Date Sancho Yoon MD 230 [place] [address] PCP - General Internal Medicine 08/16/14 documented as of this encounter
--- OUTSIDE RECORDS SUMMARY | 2025-07-13 10:10 | XMS_ITS | Encounter Summary ---
Author Organization [employer] Address 75 [facility] 7t [place] [address] Care Team Providers Care Network Engineer Administrator Name Role Phone Sancho Yoon MD Primary Care Provide r Reason for Visit * Reason Comments Med Refill Encounter Details Date Type Department Care Team ([facility] st Contact Info) Description 08/19/2023 Refill [facility] MEDICINE 230 [place] [address] Sancho Yoon MD 230 [place], [place] [phone] Social History Tobacco Use Types Packs/Day Years [...] Visit [facility] MEDICINE 230 [place] [address] Sancho Yoon MD [address] [place] [address] 09/18/2025 8:00 AM EST Office Visit [facility] ADULT DENTAL 230 [place] [address] Yi Sanchez 09/26/2025 9:45 AM EST Office Visit [facility] MEDICINE 230 [place] [address] documented as of this encounter Visit Diagnoses Not on filedocumented in this encounter Additional Health Concerns Assessment Noted Time PHQ-9 Depression Total Score: 3 03/23/20 23 1:07 PM EDT documented as of this encounter Care Teams Network Engineer Administrator Relationship Specialty Start Date End Date Sancho Yoon MD 230 [place] [address] PCP - General Internal Medicine 08/16/14 documented as of this encounter
--- OUTSIDE RECORDS SUMMARY | 2025-07-13 10:10 | XMS_ITS | Encounter Summary ---
Author Organization [employer] Address 75 [facility] 7t [place] [address] Care Team Providers Care It Operations Analyst Name Role Phone Sancho Yoon MD Primary Care Provide r Reason for Visit * Reason Comments Med Refill Encounter Details Date Type Department Care Team ([facility] st Contact Info) Description 11/18/2023 Refill [facility] 230 [place] [address] Chad Foley MD 230 [place] [address] Social History Tobacco Use Types Packs/Day Years [...] 08/01/2025 1:15 PM EDT Office Visit [facility] MEDICINE 230 [place] [address] Sancho Yoon MD [address] [place] [address] 09/18/2025 8:00 AM EST Office Visit [facility] ADULT DENTAL 230 [place] [address] Yi Sanchez 09/26/2025 9:45 AM EST Office Visit [facility] MEDICINE [address] [place] [address] documented as of this encounter Visit Diagnoses Not on filedocumented in this encounter Additional Health Concerns Assessment Noted Time PHQ-9 Depression Total Score: 3 03/23/20 23 1:07 PM EDT documented as of this encounter Care Teams It Operations Analyst Relationship Specialty Start Date End Date Sancho Yoon MD [address] [place] [address] PCP - General Internal Medicine 08/16/14 documented as of this encounter
--- OUTSIDE RECORDS SUMMARY | 2025-07-13 10:10 | XMS_ITS | Encounter Summary ---
Author Organization [employer] Address 75 [facility] 7t [place] [address] Care Team Providers Care Networking Administrator Name Role Phone Sancho Yoon MD Primary Care Provide r Reason for Visit * Reason Comments Med Refill Encounter Details Date Type Department Care Team ([facility] Contact Info) Description 01/24/2024 Refill [facility] 230 [place] [address] Sancho Yoon MD 230 [place] [address] Social History Tobacco Use Types Packs/Day Years [...] Office Visit [facility] MEDICINE [address] [place] [address] Sancho Yoon MD 230 [place] [address] 09/18/2025 8:00 AM EST Office Visit [facility] ADULT DENTAL [address] [place] [address] Yi Sanchez 09/26/2025 9:45 AM EST Office Visit [facility] MEDICINE [address] [place] [address] documented as of this encounter Visit Diagnoses Not on filedocumented in this encounter Additional Health Concerns Assessment Noted Time PHQ-9 Depression Total Score: 3 03/23/20 23 1:07 PM EDT documented as of this encounter Care Teams Networking Administrator Relationship Specialty Start Date End Date Sancho Yoon MD 230 [place] [address] PCP - General Internal Medicine 08/16/14 documented as of this encounter
--- OUTSIDE RECORDS SUMMARY | 2025-07-13 10:10 | XMS_ITS | Encounter Summary ---
Author Organization [employer] Address 75 [facility] 7t h Floor [place] [phone] Care Team Providers Care Cotton Bag Clipper Name Role Phone Sancho Yoon MD Primary Care Provide r Reason for Visit * Reason Onset Date Comments Med Refill 04/19/2024 Encounter Details Date Type Department Care Team ([facility] st Contact Info) Description 04/19/2024 Telephone [facility] MEDICINE 230 [place], [place] [phone] Sancho Yoon MD 230 [place] [address] Med Refill Social History Tobacco Use Types [...] immediate release tablet To be sent to: [facility] Pharm[facility] documented in this encounter Plan of Treatment Upcoming Encounters Date Type Department Care Team (Late st Contact Info) Description 08/01/2025 1:15 PM EDT Office Visit [facility] MEDICINE [address] [place] [address] Sancho Yoon MD [address] [place] [address] 09/18/2025 8:00 AM EST Office Visit [facility] ADULT DENTAL 230 [place] [address] Yi Sanchez 09/26/2025 9:45 AM EST Office Visit [facility] MEDICINE [address] [place] [address] documented as of this encounter Visit Diagnoses Not on filedocumented in this encounter Additional Health Concerns Assessment Noted Time PHQ-9 Depression Total Score: 3 03/23/20 23 1:07 PM EDT documented as of this encounter Care Teams Cotton Bag Clipper Relationship Specialty Start Date End Date Sancho Yoon MD [address] [place] [address] PCP - General Internal Medicine 10/1/14 documented as of this encounter
--- OUTSIDE RECORDS SUMMARY | 2025-07-13 10:10 | XMS_ITS | Encounter Summary ---
Author Organization [employer] Address 75 [facility] 7t [place] [address] Care Team Providers Care Corporate Recruiter Name Role Phone Sancho Yoon MD Primary Care Provide r Reason for Visit * Reason Comments Med Refill Encounter Details Date Type Department Care Team ([facility] st Contact Info) Description 02/08/2024 Refill [facility] MEDICINE 230 [place], [place] [phone] Sancho Yoon MD 230 [place], [place] [phone] Other chronic pain Social History Tobacco Use [...] Office Visit [facility] MEDICINE 230 [place] [address] Sancho Yoon MD 230 [place] [address] 09/18/2025 8:00 AM EST Office Visit [facility] ADULT DENTAL 230 [place] [address] Yi Sanchez 09/26/2025 9:45 AM EST Office Visit [facility] MEDICINE 230 [place] [address] documented as of this encounter Visit Diagnoses Diagnosis Other chronic pain documented in this encounter Additional Health Concerns Assessment Noted Time PHQ-9 Depression Total Score: 3 03/23/20 23 1:07 PM EDT documented as of this encounter Care Teams Corporate Recruiter Relationship Specialty Start Date End Date Sancho Yoon MD [address] [place] [address] PCP - General Internal Medicine 08/16/14 documented as of this encounter
--- OUTSIDE RECORDS SUMMARY | 2025-07-13 10:10 | XMS_ITS | Encounter Summary ---
Author Organization [employer] Address 75 [facility] 7t [place] [address] Care Team Providers Care Critical Care Nurse Practitioner Name Role Phone Sancho Yoon MD Primary Care Provide r Reason for Visit * Reason Comments Med Refill Encounter Details Date Type Department Care Team ([facility] st Contact Info) Description 07/02/2024 Refill [facility] MEDICINE 230 [place], [place] [phone] Sancho Yoon MD 230 [place], [place] [phone] Mild intermittent asthma without complication Social History [...] Description 08/01/2025 1:15 PM EDT Office Visit [facility] MEDICINE [address] [place] [address] Sancho Yoon MD [address] [place] [address] 09/18/2025 8:00 AM EST Office Visit [facility] ADULT DENTAL [address] [place] [address] Yi Sanchez 09/26/2025 9:45 AM EST Office Visit [facility] MEDICINE [address] [place] [address] documented as of this encounter Visit Diagnoses Diagnosis Mild intermittent asthma without complication documented in this encounter Additional Health Concerns Assessment Noted Time PHQ-9 Depression Total Score: 3 03/23/20 23 1:07 PM EDT documented as of this encounter Care Teams Critical Care Nurse Practitioner Relationship Specialty Start Date End Date Sancho Yoon MD [address] [place] [address] PCP - General Internal Medicine 08/16/14 documented as of this encounter
--- OUTSIDE RECORDS SUMMARY | 2025-07-13 10:10 | XMS_ITS | Encounter Summary ---
Author Organization [employer] Address 75 [facility] 7t [place] [address] Care Team Providers Care Hydrocrane Operator Name Role Phone Sancho Yoon MD Primary Care Provide r Encounter Details Date Type Department Care Team (Late st Contact Info) Description 07/28/2023 Abstract [facility] ADULT DENTAL 230 [place] [address] Roger, Mildred [address] [place] [address] Social History Tobacco Use Types Packs/Day Years [...] Description 08/01/2025 1:15 PM EDT Office Visit [facility] MEDICINE 230 [place] [address] Sancho Yoon MD 230 [place] [address] 09/18/2025 8:00 AM EST Office Visit [facility] ADULT DENTAL [address] [place] [address] SanchezYi pretty 09/26/2025 9:45 AM EST Office Visit [facility] MEDICINE [address] [place] [address] documented as of this encounter Visit Diagnoses Not on filedocumented in this encounter Additional Health Concerns Assessment Noted Time PHQ-9 Depression Total Score: 3 03/23/20 23 1:07 PM EDT documented as of this encounter Care Teams Hydrocrane Operator Relationship Specialty Start Date End Date Sancho Yoon MD 230 [place] [address] PCP - General Internal Medicine 08/16/14 documented as of this encounter
--- OUTSIDE RECORDS SUMMARY | 2025-07-13 10:11 | XMS_ITS | Encounter Summary ---
Author Organization [employer] Address [address] [facility] [address] 7t [place] [address] Care Team Providers Care Pipe Bowls Paint Trimmer Name Role Phone Sancho Yoon MD Primary Care Provide r Encounter Details Date Type Department Care Team ([facility] st Contact Info) Description 11/14/2024 Telephone [facility] MED [facility] PEDS [address] [place], [place] [phone] Sancho Yoon MD 230 [place], [place] [phone] Social History Tobacco Use Types Packs/Day Years [...] Description 08/01/2025 1:15 PM EDT Office Visit [facility] MEDICINE 230 [place] [address] Sancho Yoon MD 230 [place] [address] 09/18/2025 8:00 AM EST Office Visit [facility] ADULT DENTAL 230 [place] [address] Yi Sanchez 09/26/2025 9:45 AM EST Office Visit [facility] MEDICINE 230 [place] [address] documented as of this encounter Visit Diagnoses Not on filedocumented in this encounter Additional Health Concerns Assessment Noted Time PHQ-9 Depression Total Score: 0 09/29/20 24 9:48 AM EST documented as of this encounter Care Teams Pipe Bowls Paint Trimmer Relationship Specialty Start Date End Date Sancho Yoon MD [address] [place] [address] PCP - General Internal Medicine 08/16/14 documented as of this encounter
--- OUTSIDE RECORDS SUMMARY | 2025-07-13 10:11 | XMS_ITS | Encounter Summary ---
Author Organization [employer] Address [address] [facility] 7[address] [place] [address] Care Team Providers Care Missile Facilities Repairer Name Role Phone Sancho Yoon MD Primary Care Provide r Reason for Visit * Reason Comments Med Refill Encounter Details Date Type Department Care Team ([facility] Contact Info) Description 10/17/2024 Refill [facility] CHC MED & PEDS [address] [place], [place] [phone] Sancho Yoon MD 230 [place] [address] Other chronic pain Social History Tobacco Use [...] Description 08/01/2025 1:15 PM EDT Office Visit [facility] MEDICINE [address] [place] [address] Sancho Yoon MD 230 [place] [address] 09/18/2025 8:00 AM EST Office Visit [facility] ADULT DENTAL 230 [place] [address] Yi Sanchez 09/26/2025 9:45 AM EST Office Visit [facility] MEDICINE 230 [place] [address] documented as of this encounter Visit Diagnoses Diagnosis Other chronic pain documented in this encounter Additional Health Concerns Assessment Noted Time PHQ-9 Depression Total Score: 0 09/29/20 24 9:48 AM EST documented as of this encounter Care Teams Missile Facilities Repairer Relationship Specialty Start Date End Date Sancho Yoon MD [address] [place] [address] PCP - General Internal Medicine 08/16/14 documented as of this encounter
--- OUTSIDE RECORDS SUMMARY | 2025-07-13 10:11 | XMS_ITS | Encounter Summary ---
Author Organization [employer] Address 75 [facility] 7t [place] [address] Care Team Providers Care Hand Router Operator Name Role Phone Sancho Yoon MD Primary Care Provide r Reason for Visit * Reason Comments Med Refill Encounter Details Date Type Department Care Team ([facility] Contact Info) Description 11/04/2024 Refill [facility] MEDICINE 230 [place], [place] [phone] Sancho Yoon MD 230 [place], [place] [phone] Erectile dysfunction, unspecified erectile dysfunction type Social [...] Description 08/01/2025 1:15 PM EDT Office Visit [facility] MEDICINE [address] [place] [address] Sancho Yoon MD [address] [place] [address] 09/18/2025 8:00 AM EST Office Visit [facility] ADULT DENTAL [address] [place] [address] Yi Sanchez 09/26/2025 9:45 AM EST Office Visit [facility] MEDICINE [address] [place] [address] documented as of this encounter Visit Diagnoses Diagnosis Erectile dysfunction, unspecified erectile dysfunction type documented in this encounter Additional Health Concerns Assessment Noted Time PHQ-9 Depression Total Score: 0 09/29/20 24 9:48 AM EST documented as of this encounter Care Teams Hand Router Operator Relationship Specialty Start Date End Date Sancho Yoon MD [address] [place] [address] PCP - General Internal Medicine 08/16/14 documented as of this encounter
--- OUTSIDE RECORDS SUMMARY | 2025-07-13 10:11 | XMS_ITS | Clinical Summary ---
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 Signed By: <Electronically signed by Noe Guaman MD in OV> 05/24/25 1305 DD/ 1147 TD/TT: 05/24/25 1221 Senior Java Data Architect: Chad Foley MD IMG CT PROCEDURES Final Result * XR Chest 1 View (04/18/2025 6:44 AM EDT) Anatomical Region Laterality Modality Chest Radiographic Liz ging 04/18/2025 6:44 AM EDT Narrative 04/18/2025 6:45 AM EDT [address] [address] XRay Report Signed Patient: Clint Beckford MR#: [id number] : 1955 Acct:[id number] Age/Sex: 69 / M ADM Date: 04/18/25 Loc: HO.ED Attending Dr: Ordering Physician: Shahbaz Ruiz MD Date of Service: 04/18/25 Procedure(s): XR chest 1V Accession Number(s): [id number] cc: Sancho Baen MD; Shahbaz Ruiz MD CLINICAL HISTORY: covid 1 view chest x-ray. Comparison: None Findings: The lungs are adequately expanded. No focal consolidation. No effusion or pneumothorax. Cardiac and mediastinal contours are within normal limits. No acute osseous abnormality. Metallic densities project over the upper chest. Impression: No focal consolidation or overt edema. This document has been electronically signed by: Carlos Reddy MD on 04/18/2025 06:44:42 Dictated By: Carlos Reddy MD Signed By: <Electronically signed by Carlos Reddy MD in OV> 04/18/2545 DD/ 3 TD/TT: 04/18/25 06 Senior Java Data Architect: Procedure Note Donotuseinterpreter, Image - 04/18/[address] [address] XRay Report Signed Patient: Clint BeckfordMR#: [id number] : 5Acct:[id number] Age/Sex: 69 / MADM Date: 04/18/25 Loc: .ED Attending Dr: Ordering Physician: Shahbaz Ruiz MD Date of Service: 04/18/25 Procedure(s): XR chest 1V Accession Number(s): [id number] cc: Sancho Bean MD; Shahbaz Ruiz MD CLINICAL HISTORY: covid 1 view chest x-ray. Comparison: None Findings: The lungs are adequately expanded. No focal consolidation. No effusion or pneumothorax. Cardiac and mediastinal contours are within normal limits. No acute osseous abnormality. Metallic densities project over the upper chest. Impression: No focal consolidation or overt edema. This document has been electronically signed by: Carlos Reddy MD on 04/18/2025 06:44:42 Dictated By: Carlos Reddy MD Signed By: <Electronically signed by Carlos Reddy MD in OV> 04/18/2545 DD/ 3 TD/TT: 04/18/25643 Senior Java Data Architect: [facility] External Provider IMG XR PROCEDURES Final Result * (ABNORMAL) Urinalysis, Complete, with Reflex to Culture (04/18/2025 5:17 AM EDT) Color Urine Yellow [facility] Appearance Urine Clear [facility] PH 6.0 5.0 - 9.0 [facility] Glucose Urine UA Negative Negative mg/dL [facility] Urine Blood Small (1+)(A) Negative [facility] Specific [place] - Urine 1.020 1.005 - 1.025 [facility] Urine Protein 30 (1+)(A) Neg-Trace mg/dL [facility] Urine Ketones Negative Negative mg/dL [facility] Nitrite Urine Negative Negative [facility] Leukocyte Esterase Urine Negative Negative [facility] RBC Urine 0-2 0 - 2 /HPF [facility] Urine WBC 0-5 0 - 5 /HPF [facility] Urine Squamous Epithelial Cell 0-2 0 - 2 /HPF [facility] Urine Bacteria None Seen None Seen [facility] Hyaline Casts, Urine 0-2 0 - 2 /LPF [facility] 04/18/2025 5:17 AM EDT 04/18/2025 5:21 AM EDT Narrative [facility] - 04/18/2025 5:38 AM EDT Urine, Clean Catch us Generic External Data Provider LAB URINE ORDERAB LES Final Result Performing Organization Address City/[facility]/ZIP Co de Phone Number [facility] [address] [place] [phone] * Lipase (04/18/2025 4:55 AM EDT) Lipase 48 8 - 78 U/L [facility] 04/18/2025 4:55 AM EDT 04/18/2025 5:01 AM EDT Generic External Data Provider LAB BLOOD ORDERAB LES Final Result Performing Organization Address [facility] Co de Phone Number [facility] [address] [place] [phone] * (ABNORMAL) Lipid Panel, Standard (10/05/2024 10:25 AM EST) Triglycerides 179(H) <150 mg/dL [facility] Comment:Desirable Triglyceri de: less than [...] 190 mg/dL HDL Cholesterol 42 >40 mg/dL [facility] Comment:Desirable HDL: great er than 40 mg/dL Note: This HDL assay may give artificially low results in patients with liver disease. Blood Venous blood specimen / Unknown 10/05/2024 10:25 AM EST 10/05/2024 11:28 AM EST Sancho Mayberry MD LAB BLOOD ORDERABLES Final Result [facility] [address] [place] [phone] [phone] * Colonoscopy (02/17/2022) Colonoscopy performed Historical Provider HEALTH MAINTENANCE Edited Result - Final from Last 3 Months or Most Recently Relevant to Health Maintenance Insurance [facility] INTERMEDIATE OPTIONS (O D-SNP) [facility] STANDARD DENTAL [facility] Care Teams Drill Rig Operator Helper Relationship Specialty Start Date End Date Sancho Yoon MD [address] [place] [address] PCP - General Internal Medicine 08/16/14
== END ==
LOC: HO.CARD 09:10
PROVIDERS: PCP Internal Medicine; Visit Provider Student in an Organized Health Care Education/Training Program
DX: I26.99 Other pulmonary embolism without acute cor pulmonale (principal)
CPT/HCPCS: 93306

== ENCOUNTER → 2025-07-13 09:13 | Outpatient (BNV) | payer OTHER, SELFPAY | PROVIDERS: PCP Internal Medicine; Visit Provider Internal Medicine | DX: I26.99 Other pulmonary embolism without acute cor pulmonale (principal); I42.2 Other hypertrophic cardiomyopathy | CPT/HCPCS: 93306 ==

== ENCOUNTER 2025-08-02 08:43 | Outpatient (REF) | payer OTHER, SELFPAY ==
--- OUTSIDE RECORDS SUMMARY | 2024-12-22 05:00 | XMS_ITS ---
Author Organization [facility] Address [address] [place] [address] Care Team Providers Care Auto Body Customizer Name Role Phone Raman Mayberry MD, Sancho Primary Care Provide Joshua Harvey [phone] REASON FOR VISIT Patient presents today for hx hep c Encounters Encounter Location Date Provider Diagnosis [facility] [address] [place] [address] 12/22/2024 Joshua Valdivia Plan Of Treatment Next Appt Details Provider Name:Joshua Valdivia , 05/01/2026 09:30:00 AM, [address], [address], [place], [address], Progress Notes * VENANCIO LARRYDOB:[birth year] (69 yo M)Acc No.[id number]:12/22/2024 Progress Notes Patient: Jen YU VENANCIO SUAREZ Provider: Jen Valdivia MD :1955 A ge:69 Y S ex:Male Date:12/22/2024 Address:[address], [place], [place] Pcp:Sancho sandhu MD Subjective: * Chief Complaints: [...] 12/22/2024 Generated for Jayla pollock/Megha/Arnieitting on: 0 08/02/2025 10:09 AM EDT
--- OUTSIDE RECORDS SUMMARY | 2025-08-01 13:15 | XMS_ITS | Encounter Summary ---
Author Organization [employer] Address [address] [facility] 7t [place] [address] Care Team Providers Care Barnworker Groom Name Role Phone Sancho Yoon MD Primary Care Provide r Tae Kong MD Unavailable [phone] Encounter Details Date Type Department Care Team (Latest Contact Info) Description 08/01/2025 1:15 PM EDT Office Visit [facility] MEDICINE [address] [place] [address] Sancho Yoon MD [address] [place] [address] Essential hypertension (Primary Dx); Other acute pulmonary embolism, unspecified whether acute cor pulmonale present (CMS/HCC); Preventative health care; Chronic anticoagulation; Pure hypercholesterolemia Social History Tobacco Use Types [...] Sign Reading Time Taken Comments Blood Pressure 134/82 08/01/2025 1:13 PM EDT Pulse 75 08/01/2025 1:13 PM EDT Temperature 36.2 C (97.1 F) 08/01/2025 1:13 PM EDT Respiratory Rate 18 08/01/2025 1:13 PM EDT Oxygen Saturation 99% 08/01/2025 1:13 PM EDT Inhaled Oxygen Concentration - - Weight 98.4 kg (217 lb) 08/01/2025 1:13 PM EDT Height 182.9 cm (6') 08/01/2025 1:13 PM EDT Body Mass Index 29.43 08/01/2025 1:13 PM EDT documented in this encounter Progress Notes * Sancho Mayberry MD - 08/01/2025 1:15 PM EDT SUBJECTIVE Clint Dickens is a 69 y.o. male who presents for No chief complaint on file.. Hypertension This is a chronic problem. Pertinent negatives include no chest pain, headaches or shortness of breath. Review of Systems Constitutional: Negative for fever. HENT: Negative for sore throat. Respiratory: Negative for cough and shortness of breath. Cardiovascular: Negative for chest pain. Gastrointestinal: Negative for abdominal pain. Neurological: Negative for headaches. Allergies[1] OBJECTIVE Vitals: 08/01/25 1313 BP: 134/82 BP Location: Left arm Patient Position: Sitting BP Cuff Size: Adult Pulse: 75 Resp: 18 Temp: 97.1 ??F (36.2 ??C) TempSrc: Temporal SpO2: 99% Weight: 217 lb (98.4 kg) Height: 6' (1.829 m) Physical Exam Vitals reviewed. Constitutional: Appearance: Normal appearance. HENT: Head: Normocephalic and atraumatic. Right Ear: External ear normal. Left Ear: External ear normal. Nose: Nose normal. Mouth/Throat: Mouth: Mucous membranes are moist. Eyes: Conjunctiva/sclera: Conjunctivae normal. Cardiovascular: Rate and Rhythm: Normal rate and regular rhythm. Pulmonary: Effort: Pulmonary effort is normal. Breath sounds: Normal breath sounds. Skin: General: Skin is warm. Neurological: Mental Status: He is alert. Mental status is at baseline. Assessment/Plan Problem List Items Addressed This Visit Essential hypertension - Primary Pt here for a routine f/u BP controlled He is on Lisinopril 10 mg po daily BMP Lab Results Component Value Date NA 142 05/30/2025 NA 141 05/24/2025 K 4.0 05/30/2025 K 3.8 05/24/2025 CL 108 05/30/2025 CL 109 (H) 05/24/2025 BUN 17 (H) 05/30/2025 BUN 12 05/24/2025 CREATININE 1.03 05/30/2025 CREATININE 0.97 05/24/2025 within normal limits patient advised to adhere to a low sodium diet, encouraged about medication compliance, counseled about weight loss. Relevant Orders Lipid Panel, Standard Acute pulmonary embolism (CMS/HCC) On Eliquis now. Under the care of Hematology who is conducting a hypercoagulable work up. Last seen06/12/2025 Preventative health care PSA 02/12/2024 : 1.70 Normal. Will repeat Colonoscopy: 02/17/2022 Dr. 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 Pt is now on Eliquis given recent PE. Undergoing hypercoagulable work up per Hematology Pure hypercholesterolemia Patient is here for a f/u Patient with elevated lipids. Most recent lipid profile from: Lab Results Component Value Date TRIG 179 (H) 10/05/2024 CHOL 171 10/05/2024 LDLCHOLCAL 94 10/05/2024 HDL 42 10/05/2024 Currently on a regimen of: Atorvastatin 40 mg po daily . Repeat Lipid profile Plan Continue Atorvastatin 40 mg po qhs. Pt to have repeat Lipid profile prior to next visit, he did not have it done advised to try to adhere to a low cholesterol diet, counseled and educated about diet and exercise,Patient encouraged to come up with a personal goal for weight loss. Future Appointments Date Time Provider Department Center 09/18/2025 8:00 AM Yi Sanchez [facility] 09/26/2025 9:45 AM [facility] [1] No Known Allergies documented in this encounter Miscellaneous Notes * Assessment & Plan Note - Sancho Mayberry MD - 08/01/2025 1:39 PM EDT Associated Problem(s): Pure hypercholesterolemia Patient is here for a f/u Patient with elevated lipids. Most recent lipid profile from: Lab Results Component Value Date TRIG 179 (H) 10/05/2024 CHOL 171 10/05/2024 LDLCHOLCAL 94 10/05/2024 HDL 42 10/05/2024 Currently on a regimen of: Atorvastatin 40 mg po daily . Repeat Lipid profile Plan Continue Atorvastatin 40 mg po qhs. Pt to have repeat Lipid profile prior to next visit, he did not have it done advised to try to adhere to a low cholesterol diet, counseled and educated about diet and exercise,Patient encouraged to come up with a personal goal for weight loss. 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 Pt is now on Eliquis given recent PE. Undergoing hypercoagulable work up per Hematology * Assessment & Plan Note - Sancho Mayberry MD - 08/01/2025 1:35 PM EDT Associated Problem(s): Preventative health care PSA 02/12/2024 : 1.70 Normal. Will repeat Colonoscopy: 02/17/2022 Dr. Valdivia was Normal, he recommended 5 yr f/u given Hx of TA * Assessment & Plan Note - Sancho Mayberry MD - 08/01/2025 1:35 PM EDT Associated Problem(s): Acute pulmonary embolism (CMS/HCC) On Eliquis now. Under the care of Hematology who is conducting a hypercoagulable work up. Last seen06/12/2025 * Assessment & Plan Note - Sancho Mayberry MD - 08/01/2025 1:34 PM EDT Associated Problem(s): Essential hypertension Pt here for a routine f/u BP controlled He is on Lisinopril 10 mg po daily BMP Lab Results Component Value Date NA 142 05/30/2025 NA 141 05/24/2025 K 4.0 05/30/2025 K 3.8 05/24/2025 CL 108 05/30/2025 CL 109 (H) 05/24/2025 BUN 17 (H) 05/30/2025 BUN 12 05/24/2025 CREATININE 1.03 05/30/2025 CREATININE 0.97 05/24/2025 within normal limits patient advised to adhere to a low sodium diet, encouraged about medication compliance, counseled about weight loss. documented in this encounter Plan of Treatment Upcoming Encounters Date Type Department Care Team (Late st Contact Info) Description 09/18/2025 8:00 AM EST Office Visit [facility] ADULT DENTAL [address] [place] [address] Yi Sanchez 09/26/2025 9:45 AM EST Office Visit [facility] [address] [place] [address] 10/26/2025 2:15 PM EST Office Visit [facility] [address] [place] [address] Sancho Yoon MD [address] [place] [address] documented as of this encounter Procedures Procedure Name Priority Date/Time Associated Diagnosis Comments PSA, SCREEN Routine 08/02/2025 8:56 AM EDT Preventative health care LIPID PANEL, STANDARD Routine 08/02/2025 8:56 AM EDT Essential hypertension documented in this encounter Results * (ABNORMAL) Lipid Panel, Standard (08/02/2025 8:56 AM EDT) Triglycerides 224(H) <150 mg/dL [facility] Comment:Desirable Triglyceri de: less than 150 mg/dLBorderline High Triglyceride 150-199 mg/dLHigh Triglyceride: 200-499 mg/dLVery High Triglyceride: greater than or equal to 5OO mg/dL Cholesterol 163 <200 mg/dL [facility] Comment:Desirable Cholestero l: less than 200 mg/dLBorderline High Cholesterol: 200-239 mg/dLHigh Cholesterol: greater than 239 mg/dL LDL Cholesterol Calculated 81 <100 mg/dL [facility] Comment:Desirable LDL: less than 100 mg/dLNear Optimal/Above Optimal LDL: 110- 129 mg/dLBorderline High LDL: 130-159 mg/dLHigh LDL: 160-189 mg/dLVery High LDL: greater than or equal to 190 mg/dL HDL Cholesterol 38(L) >40 mg/dL [facility] Comment:Desirable HDL: great er than 40 mg/dL Note: This HDL assay may give artificially low results in patients with liver disease. Blood Venous blood specimen / Unknown 08/02/2025 8:56 AM EDT 08/02/2025 8:56 AM EDT Sancho Mayberry MD LAB BLOOD ORDERABLES Final Result Performing Organization Address City/[facility]/ZIP Co de Phone Number [facility] [address] [place] [phone] * PSA, Screen (08/02/2025 8:56 AM EDT) PSA, Total 2.01 <0.05 - 4.0 ng/mL [facility] Comment:PSA methodology: Magno Lackey i ChemiluminescentMicroparticle Immunoassay (CMIA) Blood Venous blood specimen / Unknown 08/02/2025 8:56 AM EDT 08/02/2025 8:56 AM EDT Sancho Mayberry MD LAB BLOOD ORDERABLES Final Result Performing Organization Address City/[facility]/ZIP Co de Phone Number [facility] [address] [place] [phone] documented in this encounter Visit Diagnoses Diagnosis Essential hypertension- Primary Unspecified essential hypertension Other acute pulmonary embolism, unspecified whether acute cor pulmonale present (CMS/HCC) Preventative health care Routine general medical examination at a health care facility Chronic anticoagulation Encounter for long-term (current) use of anticoagulants Pure hypercholesterolemia documented in this encounter Additional Health Concerns Assessment Noted Time PHQ-9 Depression Total Score: 0 09/29/20 24 9:48 AM EST documented as of this encounter Care Teams Barnworker Groom Relationship Specialty Start Date End Date Sancho Yoon MD [address] [place] [phone] PCP - General Internal Medicine 08/16/14 Tae Kong MD [address] [place] [address] Cardiology 07/18/25 documented as of this encounter
[2025-08-02 08:57] LABS: MANUAL DIFF FLAG NO
[2025-08-02 09:12] LABS: Hematocrit 40.9 % (42.0-52.0); Hemoglobin 13.8 g/dl (14.0-18.0); Imm Gran Abs Auto 0.01 X10*3/uL (0.00-0.03); Imm Gran Pct Auto 0.2 % (0.0-0.4); Lymphocytes Absolute Auto 2.4 X10*3/uL (1.2-4.9); Mean Corpuscular HGB Conc 33.7 g/dl (31.0-36.0); Mean Corpuscular Hemoglobin 30.6 pg (27.0-33.0); Mean Corpuscular Volume 90.7 fL (80.0-98.0); NRBC Abs Auto 0.000 X10*3/uL (0.0-0.012); NRBC Pct Auto 0.0 /100WBC (0.0-0.2); Platelet Count 214 X10*3/uL (160-400); Red Blood Count 4.51 X10*6/uL (4.60-5.80); White Blood Count 4.9 X10*3/uL (4.8-10.8)
[2025-08-02 09:37] LABS: Cholesterol 163 mg/dL (<200); HDL Cholesterol 38 mg/dL (>40); Triglycerides 224 mg/dL (<150); Uric Acid 4.9 mg/dL (3.4-7.0)
--- OUTSIDE RECORDS SUMMARY | 2025-08-02 10:08 | XMS_ITS | Encounter Summary ---
Author Organization [employer] Address [address] [facility] [address] [place] [address] Care Team Providers Care Software Deployment Engineer Name Role Phone Sancho Yoon MD Primary Care Provide r Tae Kong MD Unavailable [phone] Encounter Details Date Type Department Care Team (Latest Contact Info) Description 08/01/2025 Travel Social History Tobacco Use Types Packs/Day Years [...] Description 09/18/2025 8:00 AM EST Office Visit [facility] ADULT DENTAL [address] [place] [phone] Yi Sanchez 09/26/2025 9:45 AM EST Office Visit [facility] MEDICINE [address] [place] [phone] 10/26/2025 2:15 PM EST Office Visit [facility] MEDICINE [address] [place] [phone] Sancho Yoon MD [address] [place] [phone] documented as of this encounter Visit Diagnoses Not on filedocumented in this encounter Additional Health Concerns Assessment Noted Time PHQ-9 Depression Total Score: 0 09/29/20 24 9:48 AM EST documented as of this encounter Care Teams Software Deployment Engineer Relationship Specialty Start Date End Date Sancho Yoon MD [address] [place] [address] PCP - General Internal Medicine 08/16/14 Tae Kong MD [address] [place] [address] Cardiology 07/18/25 documented as of this encounter
--- OUTSIDE RECORDS SUMMARY | 2025-08-02 10:08 | XMS_ITS | Encounter Summary ---
Author Organization [employer] Address [address] [facility] [address]t [place] [address] Care Team Providers Care Home Care Rn Name Role Phone Sancho Yoon MD Primary Care Provide r Tae Kong MD Unavailable [phone] Reason for Visit * Reason Onset Date Comments Med Refill 04/03/2025 Encounter Details Date Type Department Care Team ([facility] st Contact Info) Description 04/03/2025 Telephone [facility] MEDICINE [address] [place] [address] Sancho Yoon MD [address] [place] [address] Med Refill Social History Tobacco Use Types [...] immediate release tablet To be sent to: [facility] documented in this encounter Plan of Treatment Upcoming Encounters Date Type Department Care Team (Late st Contact Info) Description 09/18/2025 8:00 AM EST Office Visit [facility] ADULT DENTAL [address] [place] [address] Yi Sanchez 09/26/2025 9:45 AM EST Office Visit [facility] [address] [place] [address] 10/26/2025 2:15 PM EST Office Visit [facility] [address] [place] [address] Sancho Yoon MD [address] [place] [address] documented as of this encounter Visit Diagnoses Not on filedocumented in this encounter Additional Health Concerns Assessment Noted Time PHQ-9 Depression Total Score: 0 09/29/20 24 9:48 AM EST documented as of this encounter Care Teams Home Care Rn Relationship Specialty Start Date End Date Sancho Yoon MD [address] [place] [address] PCP - General Internal Medicine 08/16/14 Tae Kong MD [address] [place] [address] Cardiology 07/18/25 documented as of this encounter
--- OUTSIDE RECORDS SUMMARY | 2025-08-02 10:08 | XMS_ITS | Encounter Summary ---
Author Organization [employer] Address [address] [facility] [address] 7t [place] [address] Care Team Providers Care Wood Sawyer Name Role Phone Sancho Yoon MD Primary Care Provide r Tae Kong MD Unavailable [phone] Encounter Details Date Type Department Care Team ([facility] st Contact Info) Description 08/02/2025 Orders Only [facility] MEDICINE [address] [place] [address] Sancho Yoon MD [address] [place] [address] Social History Tobacco Use Types Packs/Day Years [...] Description 09/18/2025 8:00 AM EST Office Visit [facility] ADULT DENTAL [address] [place] [address] Yi Sanchez 09/26/2025 9:45 AM EST Office Visit [facility] [address] [place] [address] 10/26/2025 2:15 PM EST Office Visit [facility] [address] [place] [address] Sancho Yoon MD [address] [place] [address] documented as of this encounter Procedures Procedure Name Priority Date/Time Associated Diagnosis Comments CBC WITH AUTO DIFFERENTIAL Routine 08/02/2025 8:56 AM EDT URIC ACID Routine 08/02/2025 8:56 AM EDT documented in this encounter Results * Uric acid (08/02/2025 8:56 AM EDT) Uric Acid 4.9 3.4 - 7.0 mg/dL [facility] 08/02/2025 8:56 AM EDT 08/02/2025 8:56 AM EDT us Sancho Mayberry MD LAB BLOOD ORDERABLES Final Result [facility] [address] [place] [address] [phone] * (ABNORMAL) CBC auto differential (08/02/2025 8:56 AM EDT) White Blood Count 4.9 4.8 - 10.8 X10*3/uL [facility] Red Blood Count 4.51(L) 4.60 - 5.80 X10*6/uL [facility] Hemoglobin 13.8(L) 14.0 - 18.0 g/dl [facility] Hematocrit 40.9(L) 42.0 - 52.0 % [facility] Mean Corpuscular Volume 90.7 80.0 - 98.0 fL [facility] Mean Corpuscular Hemoglobin 30.6 27.0 - 33.0 pg [facility] Mean Corpuscular HGB Conc 33.7 31.0 - 36.0 g/dl [facility] Red Cell Distribution Width 13.2 11.0 - 16.0 % [facility] Platelet Count 214 160 - 400 X10*3/uL [facility] Mean Platelet Volume 10.2 9.4 - 12.4 fL [facility] Neutrophils Percent Auto 35.2(L) 45 - 73 % [facility] Imm Gran Pct Auto 0.2 0.0 - 0.4 % [facility] Lymphocytes Percent Auto 49.6(H) 20 - 40 % [facility] Monocytes Percent Auto 9.3 2 - 11 % [facility] Eosinophils Percent Auto 5.1(H) 0 - 4 % [facility] Basophils Percent Auto 0.6 0 - 2 % [facility] NRBC Pct Auto 0.0 0.0 - 0.2 /100WBC [facility] Neutrophils Absolute Auto 1.7(L) 2.0 - 8.3 x10*3/uL [facility] Imm Gran Abs Auto 0.01 0.00 - 0.03 X10*3/uL [facility] Lymphocytes Absolute Auto 2.4 1.2 - 4.9 X10*3/uL [facility] Monocytes Absolute Auto 0.5 0.1 - 1.2 X10*3/uL [facility] Eosinophils Absolute Auto 0.3 0.0 - 0.4 X10*3/uL [facility] Basophils Absolute Auto 0.0 0.0 - 0.2 X10*3/uL [facility] NRBC Abs Auto 0.000 0.0 - 0.012 X10*3/uL [facility] 08/02/2025 8:56 AM EDT 08/02/2025 8:56 AM EDT us Sancho Mayberry MD LAB BLOOD ORDERABLES Final Result [facility] [address] [place] [phone] [phone] documented in this encounter Visit Diagnoses Not on filedocumented in this encounter Additional Health Concerns Assessment Noted Time PHQ-9 Depression Total Score: 0 09/29/20 24 9:48 AM EST documented as of this encounter Care Teams Wood Sawyer Relationship Specialty Start Date End Date Sancho Yoon MD [address] [place] [address] PCP - General Internal Medicine 08/16/14 Tae Kong MD [address] [place] [phone] Cardiology 07/18/25 documented as of this encounter
--- OUTSIDE RECORDS SUMMARY | 2025-08-02 10:08 | XMS_ITS | Encounter Summary ---
Author Organization [employer] Address 75 [facility] 7t [place] [address] Care Team Providers Care Director General Name Role Phone Sancho Yoon MD Primary Care Provide r Tae Kong MD Unavailable [phone] Reason for Visit * Reason Onset Date Comments Med Refill 04/17/2025 Encounter Details Date Type Department Care Team ([facility] st Contact Info) Description 04/17/2025 Telephone [facility] MEDICINE [address] [place] [address] Sancho Yoon MD [address] [place] [address] Med Refill Social History Tobacco Use Types [...] immediate release tablet To be sent to: [facility] pharmacy documented in this encounter Plan of Treatment Upcoming Encounters Date Type Department Care Team (Late st Contact Info) Description 09/18/2025 8:00 AM EST Office Visit [facility] ADULT DENTAL [address] [place] [address] Yi Sanchez 09/26/2025 9:45 AM EST Office Visit [facility] MEDICINE [address] [place] [address] 10/26/2025 2:15 PM EST Office Visit [facility] MEDICINE [address] [place] [address] Sancho Yoon MD [address] [place] [address] documented as of this encounter Visit Diagnoses Not on filedocumented in this encounter Additional Health Concerns Assessment Noted Time PHQ-9 Depression Total Score: 0 09/29/20 24 9:48 AM EST documented as of this encounter Care Teams Director General Relationship Specialty Start Date End Date Sancho Yoon MD [address] [place] [address] PCP - General Internal Medicine 08/16/14 Tae Kong MD [address] [place] [address] Cardiology 07/18/25 documented as of this encounter
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
--- OUTSIDE RECORDS SUMMARY | 2025-08-02 10:08 | XMS_ITS | Encounter Summary ---
Author Organization [employer] Address 75 [facility] 7t [place] [address] Care Team Providers Care Parachute Inspector Name Role Phone Sancho Yoon MD Primary Care Provide r Tae Kong MD Unavailable [phone] Reason for Visit * Reason Onset Date Comments chart prep 07/31/2025 Encounter Details Date Type Department Care Team ([facility] st Contact Info) Description 07/31/2025 Telephone [facility] [address] [place] [address] Sancho Yoon MD [address] [place] [address] chart prep Social History Tobacco Use Types Packs/Day Years [...] encounter Miscellaneous Notes * Telephone Encounter - Leah Hill [place] - 07/31/2025 1:19 PM EDT Chart Prep Labs: done Images: done Screenings: Not Applicable Vaccines due: Covid Due, Hep A Due, Hep B Due, Flu Due, and RSV in Pharmacy Due Referrals: Completed Overdue care gaps: None documented in this encounter Plan of Treatment Upcoming Encounters Date Type Department Care Team (Late st Contact Info) Description 09/18/2025 8:00 AM EST Office Visit [facility] ADULT DENTAL [address] [place] [address] Yi Sanchez 09/26/2025 9:45 AM EST Office Visit [facility] MEDICINE [address] [place] [address] 10/26/2025 2:15 PM EST Office Visit [facility] MED[facility] [address] [place] [address] Sancho Yoon MD [address] [place] [address] documented as of this encounter Visit Diagnoses Not on filedocumented in this encounter Additional Health Concerns Assessment Noted Time PHQ-9 Depression Total Score: 0 09/29/20 24 9:48 AM EST documented as of this encounter Care Teams Parachute Inspector Relationship Specialty Start Date End Date Sancho Yoon MD [address] [place] [address] PCP - General Internal Medicine 08/16/14 Tae Kong MD [address] [place] [address] Cardiology 07/18/25 documented as of this encounter
--- OUTSIDE RECORDS SUMMARY | 2025-08-02 10:08 | XMS_ITS | Encounter Summary ---
Author Organization [employer] Address 75 [facility] 7t [place] [address] Care Team Providers Care Communications Consultant Name Role Phone Sancho Yoon MD Primary Care Provide r Tae Kong MD Unavailable [phone] Reason for Visit * Reason Onset Date Comments Appointment Request 03/22/2025 Encounter Details Date Type Department Care Team ([facility] st Contact Info) Description 03/22/2025 Telephone [facility] MEDICINE [address] [place] [address] Sancho Yoon MD [address] [place] [address] Appointment Request Social History Tobacco Use Types [...] reschedule appointment from 03/07 Please contact pt [phone] documented in this encounter Plan of Treatment Upcoming Encounters Date Type Department Care Team (Late st Contact Info) Description 09/18/2025 8:00 AM EST Office Visit [facility] ADULT DENTAL [address] [place] [address] Yi Sanchez 09/26/2025 9:45 AM EST Office Visit [facility] MEDICINE [address] [place] [address] 10/26/2025 2:15 PM EST Office Visit [facility] MEDICINE [address] [place] [address] Sancho Yoon MD [address] [place] [address] documented as of this encounter Visit Diagnoses Not on filedocumented in this encounter Additional Health Concerns Assessment Noted Time PHQ-9 Depression Total Score: 0 09/29/20 24 9:48 AM EST documented as of this encounter Care Teams Communications Consultant Relationship Specialty Start Date End Date Sancho Yoon MD [address] [place] [address] PCP - General Internal Medicine 08/16/14 Tae Kong MD [address] [place] [address] Cardiology 07/18/25 documented as of this encounter
--- OUTSIDE RECORDS SUMMARY | 2025-08-02 10:08 | XMS_ITS | Encounter Summary ---
Author Organization [employer] Address 75 [facility] 7t [place] [address] Care Team Providers Care Manager Of Environmental Services Name Role Phone Sancho Yoon MD Primary Care Provide r Tae Kong MD Unavailable [phone] Reason for Visit * Reason Onset Date Comments Med Refill 06/13/2025 Encounter Details Date Type Department Care Team ([facility] st Contact Info) Description 06/13/2025 Telephone [facility] MEDICINE [address] [place] [address] Sancho Yoon MD [address] [place] [address] Med Refill Social History Tobacco Use Types [...] immediate release tablet To be sent to: [facility] documented in this encounter Plan of Treatment Upcoming Encounters Date Type Department Care Team (Late st Contact Info) Description 09/18/2025 8:00 AM EST Office Visit [facility] ADULT DENTAL [address] [place] [address] Yi Sanchez 09/26/2025 9:45 AM EST Office Visit [facility] MEDICINE [address] [place] [address] 10/26/2025 2:15 PM EST Office Visit [facility] MEDICINE [address] [place] [address] Sancho Yoon MD [address] [place] [address] documented as of this encounter Visit Diagnoses Not on filedocumented in this encounter Additional Health Concerns Assessment Noted Time PHQ-9 Depression Total Score: 0 09/29/20 9:48 AM EST documented as of this encounter Care Teams Manager Of Environmental Services Relationship Specialty Start Date End Date Sancho Yoon MD [address] [place] [address] PCP - General Internal Medicine 08/16/14 Tae Kong MD [address] [place] [address] Cardiology 07/18/25 documented as of this encounter
--- OUTSIDE RECORDS SUMMARY | 2025-08-02 10:08 | XMS_ITS | Encounter Summary ---
Author Organization [employer] Address 75 [facility] 7t [place] [address] Care Team Providers Care Milanese Knitting Machine Operator Name Role Phone Sancho Yoon MD Primary Care Provide r Tae Kong MD Unavailable [phone] Reason for Visit * Reason Comments Med Refill Encounter Details Date Type Department Care Team ([facility] st Contact Info) Description 02/27/2025 Refill [facility] MEDICINE [address] [place] [address] Sancho Yoon MD [address] [place], [place] [phone] Benign prostatic hyperplasia with lower urinary tract [...] Description 09/18/2025 8:00 AM EST Office Visit [facility] ADULT DENTAL [address] [place] [address] Yi Sanchez 09/26/2025 9:45 AM EST Office Visit [facility] MEDICINE [address] [place] [address] 10/26/2025 2:15 PM EST Office Visit [facility] MEDICINE [address] [place] [address] Sancho Yoon MD [address] [place] [address] documented as of this encounter Visit Diagnoses Diagnosis Benign prostatic hyperplasia with lower urinary tract symptoms Other obstructive and reflux uropathy documented in this encounter Additional Health Concerns Assessment Noted Time PHQ-9 Depression Total Score: 0 09/29/20 24 9:48 AM EST documented as of this encounter Care Teams Milanese Knitting Machine Operator Relationship Specialty Start Date End Date Sancho Yoon MD [address] [place] [address] PCP - General Internal Medicine 08/16/14 Tae Kong MD [address] [place] [address] Cardiology 07/18/25 documented as of this encounter
--- OUTSIDE RECORDS SUMMARY | 2025-08-02 10:08 | XMS_ITS | Encounter Summary ---
Author Organization [employer] Address 75 [facility] 7t [place] [address] Care Team Providers Care Reroller Hand Name Role Phone Sancho Yoon MD Primary Care Provide r Tae Kong MD Unavailable [phone] Reason for Visit * Reason Onset Date Comments Med Refill 05/01/2025 Encounter Details Date Type Department Care Team ([facility] st Contact Info) Description 05/01/2025 Telephone [facility] MEDICINE [address] [place] [address] Sancho Yoon MD [address] [place] [address] Med Refill Social History Tobacco Use Types [...] immediate release tablet To be sent to: [facility] [place], [place] - [address] [place] [address] documented in this encounter Plan of Treatment Upcoming Encounters Date Type Department Care Team (Late st Contact Info) Description 09/18/2025 8:00 AM EST Office Visit [facility] ADULT DENTAL [address] [place] [address] Yi Sanchez 09/26/2025 9:45 AM EST Office Visit [facility] MEDICINE [address] [place] [address] 10/26/2025 2:15 PM EST Office Visit [facility] MEDICINE [address] [place] [address] Sancho Yoon MD [address] [place] [address] documented as of this encounter Visit Diagnoses Not on filedocumented in this encounter Additional Health Concerns Assessment Noted Time PHQ-9 Depression Total Score: 0 09/29/20 24 9:48 AM EST documented as of this encounter Care Teams Reroller Hand Relationship Specialty Start Date End Date Sancho Yoon MD [address] [place] [address] PCP - General Internal Medicine 08/16/14 Tae Kong MD [address] [place] [address] Cardiology 07/18/25 documented as of this encounter
--- OUTSIDE RECORDS SUMMARY | 2025-08-02 10:08 | XMS_ITS | Encounter Summary ---
Author Organization [employer] Address 75 [facility] 7t [place] [address] Care Team Providers Care Post Tensioning Ironworker Helper Name Role Phone Sancho Yoon MD Primary Care Provide r Tae Kong MD Unavailable [phone] Reason for Visit * Reason Comments Med Refill Encounter Details Date Type Department Care Team ([facility] st Contact Info) Description 02/22/2025 Refill [facility] [address] [place], [place] [phone] Sancho Yoon MD [address] [place] [address] Other chronic pain Social History Tobacco Use [...] Description 09/18/2025 8:00 AM EST Office Visit [facility] ADULT DENTAL [address] [place] [address] Yi Sanchez 09/26/2025 9:45 AM EST Office Visit [facility] MEDICINE [address] [place] [address] 10/26/2025 2:15 PM EST Office Visit [facility] MEDICINE [address] [place] [address] Sancho Yoon MD [address] [place] [address] documented as of this encounter Visit Diagnoses Diagnosis Other chronic pain documented in this encounter Additional Health Concerns Assessment Noted Time PHQ-9 Depression Total Score: 0 09/29/20 24 9:48 AM EST documented as of this encounter Care Teams Post Tensioning Ironworker Helper Relationship Specialty Start Date End Date Sancho Yoon MD [address] [place] [address] PCP - General Internal Medicine 08/16/14 Tae Kong MD [address] [place] [address] Cardiology 07/18/25 documented as of this encounter
--- OUTSIDE RECORDS SUMMARY | 2025-08-02 10:09 | XMS_ITS | Encounter Summary ---
Author Organization [employer] Address [address] [facility] [address] 7t [place] [address] Care Team Providers Care Ancillary Services Manager Name Role Phone Sancho Yoon MD Primary Care Provide r Tae Kong MD Unavailable [phone] Reason for Visit * Reason Comments Med Refill Encounter Details Date Type Department Care Team ([facility] st Contact Info) Description 01/24/[address] [facility] [address] [place] [address] Sancho Yoon MD 230 [place], [place] [phone] Social History Tobacco Use Types Packs/Day Years [...] Description 09/18/2025 8:00 AM EST Office Visit [facility] ADULT DENTAL [address] [place] [address] Yi Sanchez 09/26/2025 9:45 AM EST Office Visit [facility] MEDICINE [address] [place] [address] 10/26/2025 2:15 PM EST Office Visit [facility] MEDICINE [address] [place] [address] Sancho Yoon MD [address] [place] [address] documented as of this encounter Visit Diagnoses Not on filedocumented in this encounter Additional Health Concerns Assessment Noted Time PHQ-9 Depression Total Score: 3 03/23/20 23 1:07 PM EDT documented as of this encounter Care Teams Ancillary Services Manager Relationship Specialty Start Date End Date Sancho Yoon MD [address] [place] [address] PCP - General Internal Medicine 08/16/14 Tae Kong MD [address] [place] [address] Cardiology 07/18/25 documented as of this encounter
--- OUTSIDE RECORDS SUMMARY | 2025-08-02 10:09 | XMS_ITS | Encounter Summary ---
Author Organization [employer] Address 75 [facility] 7t [place] [address] Care Team Providers Care Explosives Truck Driver Name Role Phone Sancho Yoon MD Primary Care Provide r Tae Kong MD Unavailable [phone] Reason for Visit * Reason Comments Med Refill Encounter Details Date Type Department Care Team ([facility] st Contact Info) Description 10/21/2023 Refill [facility] 230 [place] [address] Sancho Yoon MD 230 [place], [place] [phone] Pure hypercholesterolemia Social History Tobacco Use Types [...] Description 09/18/2025 8:00 AM EST Office Visit [facility] ADULT DENTAL [address] [place] [address] Yi Sanchez 09/26/2025 9:45 AM EST Office Visit [facility] [address] [place] [address] 10/26/2025 2:15 PM EST Office Visit [facility] [address] [place] [address] Sancho Yoon MD [address] [place] [address] documented as of this encounter Visit Diagnoses Diagnosis Pure hypercholesterolemia documented in this encounter Additional Health Concerns Assessment Noted Time PHQ-9 Depression Total Score: 3 03/23/20 23 1:07 PM EDT documented as of this encounter Care Teams Explosives Truck Driver Relationship Specialty Start Date End Date Sancho Yoon MD [address] [place] [address] PCP - General Internal Medicine 08/16/14 Tae Kong MD [address] [place] [address] Cardiology 07/18/25 documented as of this encounter
--- OUTSIDE RECORDS SUMMARY | 2025-08-02 10:09 | XMS_ITS | Encounter Summary ---
Author Organization [employer] Address 75 [facility] 7t [place] [address] Care Team Providers Care Service Loss Control Consultant Name Role Phone Sancho Yoon MD Primary Care Provide r Tae Kong MD Unavailable [phone] Reason for Visit * Reason Comments Med Refill Encounter Details Date Type Department Care Team ([facility] st Contact Info) Description 05/02/2024 Refill [facility] [address] [place], [place] [phone] Sancho Yoon MD 230 [place] [address] Other chronic pain Social History Tobacco Use [...] Description 09/18/2025 8:00 AM EST Office Visit [facility] ADULT DENTAL [address] [place] [address] Yi Sanchez 09/26/2025 9:45 AM EST Office Visit [facility] MEDICINE [address] [place] [address] 10/26/2025 2:15 PM EST Office Visit [facility] MED[facility]INE [address] [place] [address] Sancho Yoon MD [address] [place] [address] documented as of this encounter Visit Diagnoses Diagnosis Other chronic pain documented in this encounter Additional Health Concerns Assessment Noted Time PHQ-9 Depression Total Score: 3 03/23/20 23 1:07 PM EDT documented as of this encounter Care Teams Service Loss Control Consultant Relationship Specialty Start Date End Date Sancho Yoon MD [address] [place] [address] PCP - General Internal Medicine 08/16/14 Tae Kong MD [address] [place] [address] Cardiology 07/18/25 documented as of this encounter
--- OUTSIDE RECORDS SUMMARY | 2025-08-02 10:09 | XMS_ITS | Encounter Summary ---
Author Organization [employer] Address 75 [facility] 7t [place] [address] Care Team Providers Care Plastic Sheets Finishing Supervisor Name Role Phone Sancho Yoon MD Primary Care Provide r Tae Kong MD Unavailable [phone] Reason for Visit * Reason Onset Date Comments New Med Request 09/01/2023 Encounter Details Date Type Department Care Team ([facility] st Contact Info) Description 09/01/2023 Telephone [facility] [address] [place] [address] Sancho Yoon MD 230 [place] [address] New Med Request Social History Tobacco Use Types Packs/Day Years Used Date Smoking Tobacco: Never Passive Smoke Exposure: Never Smokeless Tobacco: Never Alcohol Use Standard Drinks/Week Comments Not Currently 0 (1 standard drink = 0.6 oz pur e alcohol) Depression Answer Date Recorded Patient Health Questionnaire-9 Score 3 03/23/2023 Housing Stability Answer Date Recorded What is your housing situation today? I have nya hernandez 08/31/[address] you [...] 09/08/2023 8:54 AM EDT Received call from [facility] Coumadin clinic regarding INR, spoke to Yi. [...] procedure on 09/08/2023. Any questions contact pt. Occitan speaker documented in this encounter Plan of Treatment Upcoming Encounters Date Type Department Care Team (Late st Contact Info) Description 09/18/2025 8:00 AM EST Office Visit [facility] ADULT DENT[facility] [address] [place] [address] Yi Sanchez 09/26/2025 9:45 AM EST Office Visit [facility] [address] [place] [address] 10/26/2025 2:15 PM EST Office Visit [facility] [address] [place] [address] Sancho Yoon MD [address] [place] [address] documented as of this encounter Visit Diagnoses Not on filedocumented in this encounter Additional Health Concerns Assessment Noted Time PHQ-9 Depression Total Score: 3 03/23/20 23 1:07 PM EDT documented as of this encounter Care Teams Plastic Sheets Finishing Supervisor Relationship Specialty Start Date End Date [place] [address] PCP - General Internal Medicine 08/16/14 Tae Kong MD [address] [place] [address] Cardiology 07/18/25 documented as of this encounter
--- OUTSIDE RECORDS SUMMARY | 2025-08-02 10:09 | XMS_ITS | Encounter Summary ---
Author Organization [employer] Address 75 [facility] 7t [place] [address] Care Team Providers Care Slurry Worker Name Role Phone Sancho Yoon MD Primary Care Provide r Tae Kong MD Unavailable [phone] Encounter Details Date Type Department Care Team (Latest Contact Info) Description 04/16/2021 Abstract [facility] CONVERSIONS Dental, Provider, DDS Social History [...] Care Team ( st Contact Info) Description 09/18/2025 8:00 AM EST Office Visit [facility] ADULT DENTAL [address] [place] [address] Yi Sanchez 09/26/2025 9:45 AM EST Office Visit [facility] MEDICINE [address] [place] [address] 10/26/2025 2:15 PM EST Office Visit [facility] MEDICINE [address] [place] [address] Sancho Yoon MD 230 [place] [address] documented as of this encounter Visit Diagnoses Not on filedocumented in this encounter Care Teams Slurry Worker Relationship Specialty Start Date End Date Sancho Yoon MD 230 [place] [address] PCP - General Internal Medicine 08/16/14 Tae Kong MD [address] [place] [address] Cardiology 07/18/25 documented as of this encounter
--- OUTSIDE RECORDS SUMMARY | 2025-08-02 10:09 | XMS_ITS | Encounter Summary ---
Author Organization [employer] Address [address] [facility] [address] 7t [place] [address] Care Team Providers Care Coffee Farmer Name Role Phone Sancho Yoon MD Primary Care Provide r Tae Kong MD Unavailable [phone] Reason for Visit * Reason Comments Med Refill Encounter Details Date Type Department Care Team ([facility] Contact Info) Description 04/18/2025 Refill [facility] 230 [place] [address] Miesha Schwartz DO 230 [place] [address] Social History Tobacco Use Types Packs/Day Years [...] Description 09/18/2025 8:00 AM EST Office Visit [facility] ADULT DENTAL [address] [place] [address] Yi Sanchez 09/26/2025 9:45 AM EST Office Visit [facility] MEDICINE [address] [place] [address] 10/26/2025 2:15 PM EST Office Visit [facility] MED[facility] [address] [place] [address] Sancho Yoon MD [address] [place] [address] documented as of this encounter Visit Diagnoses Not on filedocumented in this encounter Additional Health Concerns Assessment Noted Time PHQ-9 Depression Total Score: 0 09/29/20 24 9:48 AM EST documented as of this encounter Care Teams Coffee Farmer Relationship Specialty Start Date End Date Sancho Yoon MD [address] [place] [address] PCP - General Internal Medicine 08/16/14 Tae Kong MD [address] [place] [address] Cardiology 07/18/25 documented as of this encounter
--- OUTSIDE RECORDS SUMMARY | 2025-08-02 10:09 | XMS_ITS | Encounter Summary ---
Author Organization [employer] Address 75 [facility] 7t [place] [address] Care Team Providers Care Edge Stainer Name Role Phone Sancho Yoon MD Primary Care Provide r Tae Kong MD Unavailable [phone] Reason for Visit * Reason Onset Date Comments Med Refill 08/22/2024 Encounter Details Date Type Department Care Team ([facility] st Contact Info) Description 08/22/2024 Telephone [facility] MEDICINE 230 [place] [address] Sancho Yoon MD 230 [place] [address] Med Refill Social History Tobacco Use Types [...] immediate release tablet To be sent to: [facility] - [place], [place] - [address] [place] [address] documented in this encounter Plan of Treatment Upcoming Encounters Date Type Department Care Team (Late st Contact Info) Description 09/18/2025 8:00 AM EST Office Visit [facility] ADULT DENTAL [address] [place] [address] Yi Sanchez 09/26/2025 9:45 AM EST Office Visit [facility] MEDICINE [address] [place] [address] 10/26/2025 2:15 PM EST Office Visit [facility] MEDICINE [address] [place] [address] Sancho Yoon MD [address] [place] [address] documented as of this encounter Visit Diagnoses Not on filedocumented in this encounter Additional Health Concerns Assessment Noted Time PHQ-9 Depression Total Score: 3 03/23/20 23 1:07 PM EDT documented as of this encounter Care Teams Edge Stainer Relationship Specialty Start Date End Date Sancho Yoon MD 230 [place] [address] PCP - General Internal Medicine 08/16/14 Tae Kong MD [address] [place] [address] Cardiology 07/18/25 documented as of this encounter
--- OUTSIDE RECORDS SUMMARY | 2025-08-02 10:09 | XMS_ITS | Encounter Summary ---
Author Organization [employer] Address 75 [facility] 7t [place] [address] Care Team Providers Care Advanced Solutions Architect Name Role Phone Sancho Yoon MD Primary Care Provide r Tae Kong MD Unavailable [phone] Reason for Visit * Reason Comments Med Refill Encounter Details Date Type Department Care Team ([facility] st Contact Info) Description 02/08/2024 Refill [facility] MEDICINE [address] [place] [address] Sancho Yoon MD 230 [place], [place] [phone] Other chronic pain Social History Tobacco Use [...] Visit [facility] ADULT DENTAL [address] [place] [address] Yi Sancehz 09/26/2025 9:45 AM EST Office Visit [facility] MEDICINE [address] [place] [address] 10/26/2025 2:15 PM EST Office Visit [facility] MEDICINE [address] [place] [address] Sancho Yoon MD [address] [place] [address] documented as of this encounter Visit Diagnoses Diagnosis Other chronic pain documented in this encounter Additional Health Concerns Assessment Noted Time PHQ-9 Depression Total Score: 3 03/23/20 23 1:07 PM EDT documented as of this encounter Care Teams Advanced Solutions Architect Relationship Specialty Start Date End Date Sancho Yoon MD [address] [place] [address] PCP - General Internal Medicine 08/16/14 Tae Kong MD [address] [place] [address] Cardiology 07/18/25 documented as of this encounter
--- OUTSIDE RECORDS SUMMARY | 2025-08-02 10:09 | XMS_ITS | Encounter Summary ---
Author Organization [employer] Address 75 [facility] 7t [place] [address] Care Team Providers Care Field Mechanic Name Role Phone Sancho Yoon MD Primary Care Provide r Tae Kong MD Unavailable [phone] Encounter Details Date Type Department Care Team (Latest Contact Info) Description 07/04/2022 Abstract [facility] CONVERSIONS Dental, Provider, DDS Social [...] Description 09/18/2025 8:00 AM EST Office Visit [facility] ADULT DENTAL [address] [place] [address] Yi Sanchez 09/26/2025 9:45 AM EST Office Visit [facility] MEDICINE [address] [place] [address] 10/26/2025 2:15 PM EST Office Visit [facility] MEDICINE [address] [place] [address] Sancho Yoon MD [address] [place] [address] documented as of this encounter Visit Diagnoses Not on filedocumented in this encounter Care Teams Field Mechanic Relationship Specialty Start Date End Date Sancho Yoon MD [address] [place] [address] PCP - General Internal Medicine 08/16/14 Tae Kong MD [address] [place] [address] Cardiology 07/18/25 documented as of this encounter
--- OUTSIDE RECORDS SUMMARY | 2025-08-02 10:09 | XMS_ITS | Encounter Summary ---
Author Organization [employer] Address 75 [facility] 7t [place] [address] Care Team Providers Care Film Or Tape Librarian Name Role Phone Sancho Yoon MD Primary Care Provide r Tae Kong MD Unavailable [phone] Reason for Visit * Reason Comments Med Refill Encounter Details Date Type Department Care Team ([facility] st Contact Info) Description 08/19/2023 Refill [facility] MEDICINE 230 [place] [address] Sancho Yoon MD [address] [place] [address] Social History Tobacco Use Types Packs/Day Years [...] 8:00 AM EST Office Visit [facility] ADULT DENTAL [address] [place] [address] Yi Sanchez 09/26/2025 9:45 AM EST Office Visit [facility] MEDICINE [address] [place] [address] 10/26/2025 2:15 PM EST Office Visit [facility] MEDICINE [address] [place] [address] Sancho Yoon MD [address] [place] [address] documented as of this encounter Visit Diagnoses Not on filedocumented in this encounter Additional Health Concerns Assessment Noted Time PHQ-9 Depression Total Score: 3 03/23/20 23 1:07 PM EDT documented as of this encounter Care Teams Film Or Tape Librarian Relationship Specialty Start Date End Date Sancho Yoon MD [address] [place] [address] PCP - General Internal Medicine 08/16/14 Tae Kong MD [address] [place] [address] Cardiology 07/18/25 documented as of this encounter
--- OUTSIDE RECORDS SUMMARY | 2025-08-02 10:09 | XMS_ITS | Encounter Summary ---
Author Organization [employer] Address 75 [facility] 7t [place] [address] Care Team Providers Care Scaling Machine Operator Name Role Phone Sancho Yoon MD Primary Care Provide r Tae Kong MD Unavailable [phone] Reason for Visit * Reason Onset Date Comments Med Refill 07/25/2024 Encounter Details Date Type Department Care Team (Late st Contact Info) Description 07/25/2024 Telephone [facility] MED[facility] 230 [place] [address] Sancho Yoon MD [address] [place] [address] Med Refill Social History Tobacco Use Types [...] immediate release tablet To be sent to: [facility] - [place], [place] - [address] [place] [address] documented in this encounter Plan of Treatment Upcoming Encounters Date Type Department Care Team (Late st Contact Info) Description 09/18/2025 8:00 AM EST Office Visit [facility] ADULT DENTAL [address] [place] [address] Yi Sanchez 09/26/2025 9:45 AM EST Office Visit [facility] MEDICINE [address] [place] [address] 10/26/2025 2:15 PM EST Office Visit [facility] MED[facility] [address] [place] [address] Sancho Yoon MD [address] [place] [address] documented as of this encounter Visit Diagnoses Not on filedocumented in this encounter Additional Health Concerns Assessment Noted Time PHQ-9 Depression Total Score: 3 03/23/20 23 1:07 PM EDT documented as of this encounter Care Teams Scaling Machine Operator Relationship Specialty Start Date End Date Sancho Yoon MD [address] [place] [address] PCP - General Internal Medicine 08/16/14 Tae Kong MD [address] [place] [address] Cardiology 07/18/25 documented as of this encounter
--- OUTSIDE RECORDS SUMMARY | 2025-08-02 10:09 | XMS_ITS | Encounter Summary ---
Author Organization [employer] Address 75 [facility] 7t [place] [address] Care Team Providers Care Skin Piler Name Role Phone Sancho Yoon MD Primary Care Provide r Tae Kong MD Unavailable [phone] Reason for Visit * Reason Comments Med Refill Encounter Details Date Type Department Care Team ([facility] st Contact Info) Description 10/21/2023 Refill [facility] MEDICINE [address] [place] [address] Sancho Yoon MD [address], [place] [phone] Pure hypercholesterolemia Social History Tobacco Use Types [...] Description 09/18/2025 8:00 AM EST Office Visit [facility] ADULT DENTAL [address] [place] [address] Yi Sanchez 09/26/2025 9:45 AM EST Office Visit [facility] MEDICINE [address] [place] [address] 10/26/2025 2:15 PM EST Office Visit [facility] MEDICINE [address] [place] [address] Sancho Yoon MD [address] [place] [address] documented as of this encounter Visit Diagnoses Diagnosis Pure hypercholesterolemia documented in this encounter Additional Health Concerns Assessment Noted Time PHQ-9 Depression Total Score: 3 03/23/20 23 1:07 PM EDT documented as of this encounter Care Teams Skin Piler Relationship Specialty Start Date End Date Sancho Yoon MD [address] [place] [address] PCP - General Internal Medicine 08/16/14 Tae Kong MD [address] [place] [address] Cardiology 07/18/25 documented as of this encounter
--- OUTSIDE RECORDS SUMMARY | 2025-08-02 10:09 | XMS_ITS | Encounter Summary ---
Author Organization [employer] Address [address] [facility] 7t [place] [address] Care Team Providers Care Cardiovascular Specialist Name Role Phone Sancho Yoon MD Primary Care Provide r Tae Kong MD Unavailable Encounter Details Date Type Department Care Team (Late Contact Info) Description 10/29/2022 Orders Only [facility] MEDICINE [address] [place] [address] Sancho Yoon MD [address] [place] [address] Pleural scarring (Primary Dx); Abnormal chest CT [...] Upcoming Encounters Date Type Department Care Team ([facility] Contact Info) Description 09/18/2025 8:00 AM EST Office Visit [facility] ADULT DENTAL [address] [place] [address] Yi Sanchez 09/26/2025 9:45 AM EST Office Visit [facility] MEDICINE [address] [place] [address] 10/26/2025 2:15 PM EST Office Visit [facility] MEDIC[facility] [address] [place] [address] Sancho Yoon MD [address] [place] [address] documented as of this encounter Procedures Procedure [...] EST) Protime 42.3(H) 11.1 - 13.5 sec [facility] 12/18/2022 2:35 PM EST 12/18/2022 2:37 PM EST us [facility] External Provider LAB BLO OD ORDERABLES Final Result [facility] [address] [place] [address] [phone] * (ABNORMAL) ~PT, ~INR - ANTI COAG CLINIC (12/18/2022 2:35 PM EST) Prothrombin Time INR 3.5(H) 0.9 - 1.1 [facility] Comment:METER #: [id number] TERNATIONAL NORMALIZED RATIO (INR) REFERENCE RANGES Reference [...] 2:35 PM EST 12/18/2022 2:37 PM EST [facility] External Provider LAB BLO OD ORDERABLES Final Result Performing Organization Address [facility] Co de Phone Number [facility] [address] [place] [phone] * (ABNORMAL) PROTHROMBIN TIME WHOLE BLD POC (12/11/2022 2:35 PM EST) Protime 36.7(H) 11.1 - 13.5 sec [facility] 12/11/2022 2:35 PM EST 12/11/2022 2:36 PM EST [facility] External Provider LAB BLO OD ORDERABLES Final Result Performing Organization Address [facility] Co de Phone Number [facility] [address] [place] [phone] * (ABNORMAL) ~PT, ~INR - ANTI COAG CLINIC (12/11/2022 2:35 PM EST) Prothrombin Time INR 3.1(H) 0.9 - 1.1 [facility] Comment:METER #: [id number] TERNATIONAL NORMALIZED RATIO (INR) REFERENCE RANGES Reference [...] 2:35 PM EST 12/11/2022 2:36 PM EST [facility] External Provider LAB BLO OD ORDERABLES Final Result Performing Organization Address [facility] de Phone Number [facility] [address] [place] [phone] * (ABNORMAL) PROTHROMBIN TIME WHOLE BLD POC (12/04/2022 3:39 PM EST) Protime 56.8(H) 11.1 - 13.5 sec [facility] 12/04/2022 3:39 PM EST 12/04/2022 3:40 PM EST [facility] External Provider LAB BLO OD ORDERABLES Final Result Performing Organization Address [facility] de Phone Number [facility] [address] [place] [phone] * (ABNORMAL) ~PT, ~INR - ANTI COAG CLINIC (12/04/2022 3:39 PM EST) Prothrombin Time INR 4.7(H) 0.9 - 1.1 [facility] Comment:METER #: [id number] TERNATIONAL NORMALIZED RATIO (INR) REFERENCE RANGES Reference [...] 3:39 PM EST 12/04/2022 3:40 PM EST [facility] External Provider LAB BLO OD ORDERABLES Final Result Performing Organization Address [facility] de Phone Number [facility] [address] [place] [address] [phone] * (ABNORMAL) Liver Fibrosis, FibroTest-ActiTest Panel (12/04/2022 10:15 AM EST) Liver Fibrosis Score 0.58 [facility] Liver Fibrosis Stage F2 [facility] Liver Fibrosis Interpretation SEE NOTE [facility] Comment:moderate fibrosisFib ro Test Score [...] (severe fibrosis) Nec Inflam Act Score 0.41 [facility] Nec Inflam Act Grade A1-A2 [facility] Nec Inflam Act Interpretation SEE NOTE [facility] Comment:minimal activityActi Test Score (a) Metavir Score a>=0 and a<=0.17 : A0 (no activity)a>0.17 and a<=0.29 : A0-A1 (no activity)a>0.29 and a<=0.36 : A1 (minimal activity)a>0.36 and a<=0.52 : A1-A2 (minimal activity)a>0.52 and a<=0.60 : A2 (significant activity)a>0.60 and a<=0.62 : A2-A3 (significant activity)a>0.62 and a<=1.00 : A3 (severe activity) MYN-Hezdz-0-Macroglo bulin 275 106 - 279 mg/dL [facility] FIB-Haptoglobin 120 43 - 212 mg/dL [facility] FIB-Apolipoprotein A1 171 94 - 176 mg/dL [facility] FIB-Total Bilirubin 0.8 0.2 - 1.2 mg/dL [facility] FIB-GGT 64 3 - 70 U/L [facility] FIB-ALT 53(A) 9 - 46 U/L [facility] Reference ID [id number] [facility] Footnote SEE NOTE [facility] Comment: The reliability of results [...] and C.The performance characteristics have been determined by[employer] [facility]. Ithas not been cleared or approved by the U.S. Food and DrugAdministration. Performance characteristics refer to theanalytical performance of the test.[employer], the associated logo, [employer] and all associated [employer] holloway are theregistered trademarks of [employer]. All third partymarks - (R) and (TM) - are the property of their respectiveowners. (C) 9527-8566 [employer]. Allrights reserved.THIS TEST WAS PERFORMED AT:[employer] [id number] [place] [address]WYFIEJOHN JERNIGAN MD,PHD,DAYDAY 12/04/2022 10:1 5 AM EST 12/04/2022 10:15 AM EST [facility] External Provider LAB BLO OD ORDERABLES Final Result Performing Organization Address [facility]/ZIP Co de Phone Number [facility] [address] [place] [phone] * Alphafetoprotein, Tumor Marker (12/04/2022 10:15 AM EST) Alpha Fetoprotein 2.5 <6.1 ng/mL [facility] Comment:This test was perfor med using the CamSemi Coulterchemiluminescent method. Values obtained fromdifferent assay methods cannot be usedinterchangeably. AFP levels, regardless ofvalue, should not be interpreted as absoluteevidence of the presence or absence of disease.THIS TEST WAS PERFORMED AT:[facility] [address] ([address] [address]LIDFWTINO PALOMARES MD 12/04/2022 10:1 5 AM EST 12/04/2022 10:15 AM EST [facility] External Provider LAB BLO OD ORDERABLES Final Result Performing Organization Address City/[facility]/ZIP Co de Phone Number [facility] [address] [place] [phone] * (ABNORMAL) Hepatic Function Panel (12/04/2022 10:15 AM EST) Bilirubin, Total 1.0 0.0 - 1.0 mg/dL [facility] Bilirubin, Direct 0.3 0.0 - 0.5 mg/dL [facility] Aspartate Amino Transferase 35 5 - 37 U/L [facility] Alanine Aminotransferase 58(H) 0 - 40 U/L [facility] Total Protein 7.2 6.5 - 8.0 g/dL [facility] Albumin Level 4.2 3.5 - 5.0 g/dL [facility] Alkaline Phosphatase 63 39 - 117 U/L [facility] 12/04/2022 10:1 5 AM EST 12/04/2022 10:15 AM EST us [facility] External Provider LAB BLO OD ORDERABLES Final Result [facility] [address] [place] [address] [phone] * (ABNORMAL) CBC auto differential (12/04/2022 10:15 AM EST) White Blood Count 6.9 4.8 - 10.8 X10*3/uL [facility] Red Blood Count 4.93 4.60 - 5.80 X10*6/uL [facility] Hemoglobin 15.0 14.0 - 18.0 g/dl [facility] Hematocrit 44.5 42.0 - 52.0 % [facility] Mean Corpuscular Volume 90.3 80.0 - 98.0 fL [facility] Mean Corpuscular Hemoglobin 30.4 27.0 - 33.0 pg [facility] Mean Corpuscular HGB Conc 33.7 31.0 - 36.0 g/dl [facility] Red Cell Distribution Width 13.4 11.0 - 16.0 % [facility] Platelet Count 218 160 - 400 X10*3/uL [facility] Mean Platelet Volume 10.0 9.4 - 12.4 fL [facility] Neutrophils Percent Auto 34.1(L) 45 - 73 % [facility] Imm Gran Pct Auto 0.4 0.0 - 0.4 % [facility] Lymphocytes Percent Auto 52.2(H) 20 - 40 % [facility] Monocytes Percent Auto 9.0 2 - 11 % [facility] Eosinophils Percent Auto 3.9 0 - 4 % [facility] Basophils Percent Auto 0.4 0 - 2 % [facility] NRBC Pct Auto 0.0 0.0 - 0.2 /100WBC [facility] Neutrophils Absolute Auto 2.3 2.0 - 8.3 x10*3/uL [facility] Imm Gran Abs Auto 0.03 0.00 - 0.03 X10*3/uL [facility] Lymphocytes Absolute Auto 3.6 1.2 - 4.9 X10*3/uL [facility] Monocytes Absolute Auto 0.6 0.1 - 1.2 X10*3/uL [facility] Eosinophils Absolute Auto 0.3 0.0 - 0.4 X10*3/uL [facility] Basophils Absolute Auto 0.0 0.0 - 0.2 X10*3/uL [facility] NRBC Abs Auto 0.000 0.0 - 0.012 X10*3/uL [facility] 12/04/2022 10:1 5 AM EST 12/04/2022 10:15 AM EST [facility] External Provider LAB BLO OD ORDERABLES Final Result Performing Organization Address [facility] Co de Phone Number [facility] [address] [place] [phone] * POCT Creatinine GFR (12/04/2022 9:49 AM EST) POCT Creatinine 0.9 0.5 - 1.4 mg/dL [facility] GFR POC >60 [facility] Comment:Chronic Kidney Disea se: Estimated GFR < 60 mL/min/1.93k4Nkhfgn Kidney Disease: Estimated GFR < 15 mL/min/1.73m2 12/04/2022 9:49 AM EST 12/04/2022 4:06 PM EST Narrative [facility] - 12/04/2022 4:07 PM EST [id number] [facility] Exter nal Provider LAB POINT OF CARE TEST DOCKED DEVICE ORDERABLES Final Result Performing Organization Address [facility]/ZIP Co de Phone Number [facility] [address] [place] [address] [phone] * (ABNORMAL) PROTHROMBIN TIME WHOLE BLD POC (12/03/2022 2:54 PM EST) Protime 69.3(H) 11.1 - 13.5 sec [facility] 12/03/2022 2:54 PM EST 12/03/2022 3:30 PM EST [facility] External Provider LAB BLO OD ORDERABLES Final Result Performing Organization Address City/[facility] Co de Phone Number [facility] [address] [place] [phone] * (ABNORMAL) ~PT, ~INR - ANTI COAG CLINIC (12/03/2022 2:54 PM EST) Prothrombin Time INR 5.8(HH) 0.9 - 1.1 [facility] Comment:METER #: [id number] ctor NotifiedINTERNATIONAL NORMALIZED RATIO (INR) REFERENCE RANGES [...] 2:54 PM EST 12/03/2022 3:30 PM EST [facility] External Provider LAB BLO OD ORDERABLES Final Result Performing Organization Address [facility] Co de Phone Number [facility] [address] [place] [phone] * (ABNORMAL) PROTHROMBIN TIME WHOLE BLD POC (11/26/2022 2:46 PM EST) Protime 40.1(H) 11.1 - 13.5 sec [facility] 11/26/2022 2:46 PM EST 11/26/2022 2:47 PM EST [facility] External Provider LAB BLO OD ORDERABLES Final Result Performing Organization Address City/[facility]/ZIP Co de Phone Number [facility] [address] [place] [phone] * (ABNORMAL) ~PT, ~INR - ANTI COAG CLINIC (11/26/2022 2:46 PM EST) Prothrombin Time INR 3.3(H) 0.9 - 1.1 [facility] Comment:METER #: [id number] TERNATIONAL NORMALIZED RATIO (INR) REFERENCE RANGES Reference [...] 2:46 PM EST 11/26/2022 2:47 PM EST [facility] External Provider LAB BLO OD ORDERABLES Final Result Performing Organization Address [facility] Co de Phone Number [facility] [address] [place] [phone] * (ABNORMAL) PROTHROMBIN TIME WHOLE BLD POC (11/05/2022 3:33 PM EST) Protime 33.6(H) 11.1 - 13.5 sec [facility] 11/05/2022 3:33 PM EST 11/05/2022 3:35 PM EST [facility] External Provider LAB BLO OD ORDERABLES Final Result Performing Organization Address City/[facility]/ZIP Co de Phone Number [facility] [address] [place] [phone] * (ABNORMAL) ~PT, ~INR - ANTI COAG CLINIC (11/05/2022 3:33 PM EST) Prothrombin Time INR 2.8(H) 0.9 - 1.1 [facility] Comment:METER #: [id number] TERNATIONAL NORMALIZED RATIO (INR) REFERENCE RANGES Reference [...] 3:33 PM EST 11/05/2022 3:35 PM EST [facility] External Provider LAB BLO OD ORDERABLES Final Result Performing Organization Address City/[facility]/ZIP Co de Phone Number [facility] [address] [place] [phone] * (ABNORMAL) PROTHROMBIN TIME WHOLE BLD POC (10/29/2022 3:11 PM EST) Pathologist [facility] Protime 45.2(H) 11.1 - 13.5 sec [facility] 10/29/2022 3:11 PM EST 10/30/2022 7:55 AM EST [facility] External Provider LAB BLO OD ORDERABLES Final Result Performing Organization Address City/[facility]/ZIP Co de Phone Number [facility] [address] [place] [address] [phone] * (ABNORMAL) ~PT, ~INR - ANTI COAG CLINIC (10/29/2022 3:11 PM EST) Prothrombin Time INR 3.8(H) 0.9 - 1.1 [facility] Comment:METER #: [id number] TERNATIONAL NORMALIZED RATIO (INR) REFERENCE RANGES Reference [...] 3:11 PM EST 10/30/2022 7:55 AM EST [facility] External Provider LAB BLO OD ORDERABLES Final Result Performing Organization Address City/State/[facility] Co de Phone Number [facility] [address] [place] [phone] documented in this encounter Visit Diagnoses Diagnosis Pleural scarring- Primary Pleurisy without mention of effusion or current tuberculosis Abnormal chest CT Nonspecific (abnormal) findings on radiological and other examination of other intrathoracic organs documented in this encounter Care Teams Cardiovascular Specialist Relationship Specialty Start Date End Date Sancho Yoon MD [address] [place] [address] PCP - General Internal Medicine 08/16/14 Tae Kong MD [address] [place] [phone] Cardiology 07/18/25 documented as of this encounter
--- OUTSIDE RECORDS SUMMARY | 2025-08-02 10:09 | XMS_ITS | Encounter Summary ---
Author Organization [employer] Address [address] [facility] 7t [place] [address] Care Team Providers Care Supervisor Paper Products Name Role Phone Sancho Yoon MD Primary Care Provide r Tae Kong MD Unavailable [phone] Reason for Visit * Reason Comments Med Refill Encounter Details Date Type Department Care Team ([facility] st Contact Info) Description 07/02/[address] [facility] MEDICINE [address] [place] [address] Sancho Yoon MD [address] [place], [place] [phone] Mild intermittent asthma without complication Social History [...] 09/18/2025 8:00 AM EST Office Visit [facility] ADULT DENTAL [address] [place] [address] Yi Sanchez 09/26/2025 9:45 AM EST Office Visit [facility] MEDICINE [address] [place] [address] 10/26/2025 2:15 PM EST Office Visit [facility] MEDICINE [address] [place] [address] Sancho Yoon MD [address] [place] [address] documented as of this encounter Visit Diagnoses Diagnosis Mild intermittent asthma without complication documented in this encounter Additional Health Concerns Assessment Noted Time PHQ-9 Depression Total Score: 3 03/23/20 23 1:07 PM EDT documented as of this encounter Care Teams Supervisor Paper Products Relationship Specialty Start Date End Date Sancho Yoon MD [address] [place] [phone] PCP - General Internal Medicine 08/16/14 Tae Kong MD [address] [place] [address] Cardiology 07/18/25 documented as of this encounter
--- OUTSIDE RECORDS SUMMARY | 2025-08-02 10:09 | XMS_ITS | Encounter Summary ---
Author Organization [employer] Address [address] [facility] [address] 7t [place] [address] Care Team Providers Care Postal Clerk Name Role Phone Sancho Yoon MD Primary Care Provide r Tae Kong MD Unavailable [phone] Reason for Visit * Reason Comments Med Refill Encounter Details Date Type Department Care Team ([facility] Contact Info) Description 11/18/2023 Refill [facility] [address] [place], [place] [phone] Chad Foley MD [address] [place] [address] Social History Tobacco Use Types Packs/Day Years [...] [facility] [address] [place] [address] Yi Sanchez 09/26/2025 9:45 AM EST Office Visit [facility] MEDICINE [address] [place] [address] 10/26/2025 2:15 PM EST Office Visit [facility] MEDICINE [address] [place] [address] Sancho Yoon MD [address] [place] [address] documented as of this encounter Visit Diagnoses Not on filedocumented in this encounter Additional Health Concerns Assessment Noted Time PHQ-9 Depression Total Score: 3 03/23/20 23 1:07 PM EDT documented as of this encounter Care Teams Postal Clerk Relationship Specialty Start Date End Date Sancho Yoon MD [address] [place] [address] PCP - General Internal Medicine 08/16/14 Tae Kong MD [address] [place] [address] Cardiology 07/18/25 documented as of this encounter
--- OUTSIDE RECORDS SUMMARY | 2025-08-02 10:09 | XMS_ITS | Encounter Summary ---
Author Organization [employer] Address [address] [facility] 7t [place] [address] Care Team Providers Care Nitroglycerin Distributor Name Role Phone Sancho Yoon MD Primary Care Provide r Tae Kong MD Unavailable [phone] Encounter Details Date Type Department Care Team (Late Contact Info) Description 07/28/2023 Abstract [facility] ADULT DENTAL [address] [place] [address] Mildred Duran [address] [place] [address] Social History Tobacco Use Types Packs/Day Years [...] Department Care Team (Late Contact Info) Description 09/18/2025 8:00 AM EST Office Visit [facility] ADULT DENTAL [address] [place] [address] Yi Sanchez 09/26/2025 9:45 AM EST Office Visit [facility] MEDICINE [address] [place] [address] 10/26/2025 2:15 PM EST Office Visit [facility] MEDICINE [address] [place] [address] Sancho Yoon MD [address] [place] [address] documented as of this encounter Visit Diagnoses Not on filedocumented in this encounter Additional Health Concerns Assessment Noted Time PHQ-9 Depression Total Score: 3 03/23/20 23 1:07 PM EDT documented as of this encounter Care Teams Nitroglycerin Distributor Relationship Specialty Start Date End Date Sancho Yoon MD [address] [place] [address] PCP - General Internal Medicine 08/16/14 Tae Kong MD [address] [place] [address] Cardiology 07/18/25 documented as of this encounter
--- OUTSIDE RECORDS SUMMARY | 2025-08-02 10:09 | XMS_ITS | Encounter Summary ---
Author Organization [employer] Address 75 [facility] 7t [place] [address] Care Team Providers Care Plug And Mold Finisher Name Role Phone Sancho Yoon MD Primary Care Provide r Tae Kong MD Unavailable [phone] Reason for Visit * Reason Onset Date Comments Med Refill 04/19/2024 Encounter Details Date Type Department Care Team ([facility] st Contact Info) Description 04/19/2024 Telephone [facility] MEDICINE [address] [place] [address] Sancho Yoon MD [address] [place] [address] Med Refill Social History Tobacco Use Types [...] encounter Miscellaneous Notes * Telephone Encounter - Swatih Carey - 04/19/2024 1:10 PM EDT TC from pt requesting medication refill. Medications needing refill : oxyCODONE (Roxicodone) 5 MG immediate release tablet To be sent to: [facility] Pharmacy documented in this encounter Plan of Treatment Upcoming Encounters Date Type Department Care Team (Late st Contact Info) Description 09/18/2025 8:00 AM EST Office Visit [facility] ADULT DENTAL [address] [place] [address] Yi Sanchez 09/26/2025 9:45 AM EST Office Visit [facility] MEDICINE [address] [place] [address] 10/26/2025 2:15 PM EST Office Visit [facility] MEDICINE [address] [place] [address] Sancho Yoon MD [address] [place] [address] documented as of this encounter Visit Diagnoses Not on filedocumented in this encounter Additional Health Concerns Assessment Noted Time PHQ-9 Depression Total Score: 3 03/23/20 23 1:07 PM EDT documented as of this encounter Care Teams Plug And Mold Finisher Relationship Specialty Start Date End Date Sancho Yoon MD [address] [place] [address] PCP - General Internal Medicine 08/16/14 Tae Kong MD [address] [place] [address] Cardiology 07/18/25 documented as of this encounter
--- OUTSIDE RECORDS SUMMARY | 2025-08-02 10:09 | XMS_ITS | Encounter Summary ---
Author Organization [employer] Address [address] [facility] 7t [place] [address] Care Team Providers Care Customer Engagement Manager Name Role Phone Sancho Yoon MD Primary Care Provide r Tae Kong MD Unavailable [phone] Reason for Visit * Reason Onset Date Comments Med Refill 06/27/2024 Encounter Details Date Type Department Care Team ([facility] st Contact Info) Description 06/27/2024 Telephone [facility] MEDICINE [address] [place] [address] Sancho Yoon MD [address] [place] [address] Med Refill Social History Tobacco Use Types [...] immediate release tablet To be sent to: [facility] - [place], [place] - [address] [place] [address] documented in this encounter Plan of Treatment Upcoming Encounters Date Type Department Care Team ([facility] st Contact Info) Description 09/18/2025 8:00 AM EST Office Visit [facility] ADULT DENTAL [address] [place] [address] Yi Sanchez 09/26/2025 9:45 AM EST Office Visit [facility] MEDICINE [address] [place] [address] 10/26/2025 2:15 PM EST Office Visit [facility] MED[facility]INE [address] [place] [address] Sancho Yoon MD [address] [place] [address] documented as of this encounter Visit Diagnoses Not on filedocumented in this encounter Additional Health Concerns Assessment Noted Time PHQ-9 Depression Total Score: 3 03/23/20 23 1:07 PM EDT documented as of this encounter Care Teams Customer Engagement Manager Relationship Specialty Start Date End Date Sancho Yoon MD [address] [place] [address] PCP - General Internal Medicine 08/16/14 Tae Kong MD [address] [place] [address] Cardiology 07/18/25 documented as of this encounter
--- OUTSIDE RECORDS SUMMARY | 2025-08-02 10:09 | XMS_ITS | Encounter Summary ---
Author Organization [employer] Address [address] [facility] [address] [place] [address] Care Team Providers Care Bilingual Legal Assistant Name Role Phone Sancho Yoon MD Primary Care Provide r Tae Kong MD Unavailable [phone] Reason for Visit * Reason Onset Date Comments Appointment Request 04/05/2024 Encounter Details Date Type Department Care Team ([facility] st Contact Info) Description 04/05/[address] [facility] MEDICINE [address] [place] [address] Sancho Yoon MD [address] [place] [address] Appointment Request Social History Tobacco Use Types [...] to know if there is any upcoming GEOSPATIAL ANALYST visits to be scheduled. Please contact pt at [phone]. documented in this encounter Plan of Treatment Upcoming Encounters Date Type Department Care Team (Late st Contact Info) Description 09/18/2025 8:00 AM EST Office Visit [facility] ADULT DENTAL [address] [place] [phone] Yi Sanchez 09/26/2025 9:45 AM EST Office Visit [facility] MEDICINE [address] [place] [phone] 10/26/2025 2:15 PM EST Office Visit [facility] MEDICINE [address] [place] [phone] Sancho Yoon MD [address] [place] [phone] documented as of this encounter Visit Diagnoses Not on filedocumented in this encounter Additional Health Concerns Assessment Noted Time PHQ-9 Depression Total Score: 3 03/23/20 23 1:07 PM EDT documented as of this encounter Care Teams Bilingual Legal Assistant Relationship Specialty Start Date End Date Sancho Yoon MD [address] [place] [id number] PCP - General Internal Medicine 08/16/14 Tae Kong MD [address] [place] [address] Cardiology 07/18/25 documented as of this encounter
--- OUTSIDE RECORDS SUMMARY | 2025-08-02 10:09 | XMS_ITS | Encounter Summary ---
Author Organization [employer] Address [address] [facility] [address] [place] [address] Care Team Providers Care Truck Rental Service Attendant Name Role Phone Sancho Yoon MD Primary Care Provide r Tae Kong MD Unavailable [phone] Encounter Details Date Type Department Care Team (Latest Contact Info) Description 10/26/2019 Abstract [facility] CONVERSIONS Dental, Provider, DDS Social History [...] Encounters Date Type Department Care Team ( Contact Info) Description 09/18/2025 8:00 AM EST Office Visit [facility] ADULT DENTAL [address] [place] [phone] Yi Sanchez 09/26/2025 9:45 AM EST Office Visit [facility] MEDICINE [address] [place] [phone] 10/26/2025 2:15 PM EST Office Visit [facility] MEDICINE [address] [place] [phone] Sancho Yoon MD [address] [place] [address] documented as of this encounter Visit Diagnoses Not on filedocumented in this encounter Care Teams Truck Rental Service Attendant Relationship Specialty Start Date End Date Sancho Yoon MD [address] [place] [address] PCP - General Internal Medicine 08/16/14 Tae Kong MD [address] [place] [address] Cardiology 07/18/25 documented as of this encounter
--- OUTSIDE RECORDS SUMMARY | 2025-08-02 10:10 | XMS_ITS | Encounter Summary ---
Author Organization [employer] Address [address] [place] [address] Care Team Providers Care Felting Machine Operator Name Role Phone Sancho Yoon MD Primary Care Provide r Tae Kong MD Unavailable [phone] Encounter Details Date Type Department Care Team ([facility] st Contact Info) Description 11/14/2024 Telephone [facility] [address] [place], [place] [phone] Sancho Yoon MD [address] [place] [address] Social History Tobacco Use Types Packs/Day Years [...] Description 09/18/2025 8:00 AM EST Office Visit [facility] ADULT DENTAL [address] [place] [phone] Yi Sanchez 09/26/2025 9:45 AM EST Office Visit [facility] MEDICINE [address] [place] [phone] 10/26/2025 2:15 PM EST Office Visit [facility] MEDICINE [address] [place] [phone] Sancho Yoon MD [address] [place] [phone] documented as of this encounter Visit Diagnoses Not on filedocumented in this encounter Additional Health Concerns Assessment Noted Time PHQ-9 Depression Total Score: 0 09/29/20 24 9:48 AM EST documented as of this encounter Care Teams Felting Machine Operator Relationship Specialty Start Date End Date Sancho Yoon MD [address] [place] [phone] PCP - General Internal Medicine 08/16/14 Tae Kong MD [address] [place] [address] Cardiology 07/18/25 documented as of this encounter
--- OUTSIDE RECORDS SUMMARY | 2025-08-02 10:10 | XMS_ITS | Clinical Summary ---
Author Organization [employer] Address [address] [place] [address] Care Team Providers Care Complaint Evaluation Officer Name Role Phone Sancho Yoon MD Primary Care Provide r Tae Kong MD Unavailable [phone] Allergies No known active allergies Medications * This document contains information received from the source organization and may not represent a complete record from that organization. naloxone (Narcan) 4 mg/0.1 mL nasal spray Administer 0.1 mL into affected nostril(s). 2020 Active Arnuity Ellipta 100 MCG/ACT inhalerIndications:Mil d [...] THE MORNING 90 tablet 1 2024 Active amLODIPine (Norvasc) 5 MG tablet Take 1 tablet by mouth Once per day. 2024 Active apixaban (Eliquis) 5 MG tablet Take 1 tablet (5 mg) by mouth 2 times daily. 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 Do not start before July 12, 2025. 84 tablet 08/09 Active sildenafil (Viagra) 100 MG tabletIndications:Erec tile dysfunction, unspecified erectile dysfunction type TAKE 1 TABLET 1 HOUR BEFORE SEXUAL RELATIONS ONCE DAILY NEEDED. 10 tablet 3 08/01 Discontinued( Therapy completed) rosuvastatin (Crestor) 5 MG tabletIndications:Pure hypercholesterolemia TAKE 1 TABLET BY MOUTH AT BEDTIME 90 tablet 07/05 Discontinued cetirizine (ZyrTEC) 10 MG tablet Take 1 tablet (10 mg) by mouth if needed each day for rhinitis. 30 tablet 08/01 Discontinued( Therapy completed) fluticasone (Flonase) 50 MCG/ACT nasal spray Administer 2 sprays into each nostril Once per day. Shake gently. Before first use, prime pump. After use, clean tip and replace cap. 16 g 3 08/01 Discontinued( Therapy completed) guaiFENesin (Mucinex) 600 MG 12 hr tablet Take 1 tablet (600 mg) by mouth if needed in the morning and at bedtime for cough or congestion. Do not crush, chew, or split. 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 Under the care of Hematology who is conducting a hypercoagulable work up. Last seen 06/12/2025 Assessment & Plan (06/08/2025 10:02 PM EDT): [...] does have already f up apt w personal caregiver Dr Beck in 4 days on 06/12/2025-encouraged pt to go to apt to complete eval for hypercoagulable state if not done before ,seems per ED note pt may have not been fully compliant w warfarin however mentions that INR was therapeutic at 2.2 -order today TTE to eval cardiac strain and if relevant abnormalities will rec pt to see bankruptcy attorney sooner ,states last seen 03/2025 -in regards [...] sided low back pain w/ sciatica Last PREPRESS SUPERVISOR Agreement: 05/23/25 Tier 3 (PREPRESS SUPERVISOR Q4-6months), reviewed by PCP Dec 2024 Assessment [...] if needed can be considered test . [facility] care 03/23/2023 Assessment & Plan (08/01/2025 1:35 PM EDT): PSA 02/12/2024 : 1.70 Normal. Will repeat Colonoscopy: 02/17/2022 Dr. 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 Pt is now on Eliquis given recent PE. Undergoing hypercoagulable work up per Hematology Assessment & Plan (03/23/2023 1:51 PM EDT): Pt w hx of DVT and PE years ago s/P IVC filter and on warfarin -f at [place] [facility] -from records last INR 03/14/2023 [...] (10/23/2022 9:16 AM EST): Dx initially in [place], on exam ? small inguinal hernia pt [...] management Essential hypertension 12/17/2015 Assessment & Plan (08/01/2025 1:34 PM EDT): Pt here for a routine [...] counseled about weight loss. Assessment & Plan (06/08/2025 9:56 PM EDT): [...] since 2000. He was evaluated extensively by junk removal specialist Dr. Beck who did a hypercoagulable [...] since 2000. He was evaluated extensively by junk removal specialist Dr. Beck who did a hypercoagulable [...] since 2000. He was evaluated extensively by junk removal specialist Dr. Beck who did a hypercoagulable [...] since 2000. He was evaluated extensively by junk removal specialist Dr. Beck who did a hypercoagulable work up that was unrevealing, although she believes pt has a hypercoagulable state and needs to be on coumadin life long. Pt continues to follow at the coumadin clinic Last INR was therapeutic. 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 On coumadin since 2000. Evaluated extensively by junk removal specialist Dr. Beck who did a hypercoagulable [...] -UTOX as expected. Pill count discrepancy. 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 Assessment & Plan (03/30/2025 12:09 PM EDT): [...] contract with us. Pt was referred to [facility] Pain management s/p epidural injection. With excellent [...] contract with us. Pt was referred to [facility] Pain management s/p epidural injection. With excellent [...] contract with us. Pt was referred to [facility] Pain management and is already scheduled for [...] 08/25/2012 Pure hypercholesterolemia 03/09/2012 Assessment & Plan (08/01/2025 1:40 PM EDT): Patient is here for a [...] goal for weight loss. Assessment & Plan (01/26/2025 12:46 PM EDT): [...] for a HDF He was admitted to [facility] from 07/15-07/17 for YUKI, orthostatic syncope and [...] (07/30/2023 4:02 PM EDT): Ct done at [facility] 07/15/2023 showed: fracture of anterior wall of left maxillary sinus and left side of nasal bone with minimal displacement Pt was referred to the maxillofacial surgeon. I contacted them today they told me they had misfiled his referral, the herbicide service sales representative of the office told me [...] organization. Date Type Department Care Team Description 08/02/2025 Orders Only [facility] [place] [address] Sancho Yoon MD 08/01/2025 1:15 PM EDT Office Visit [facility] [place] [address] Sancho Yoon MD Essential hypertension (Primary Dx); Other acute pulmonary embolism, unspecified whether acute cor pulmonale present ([facility]); Preventative health care; Chronic anticoagulation; Pure hypercholesterolemia 08/01/2025 Travel 07/31/2025 Telephone [facility] [place] [address] Sancho Yoon MD chart prep 07/24/2025 Patient Outreach [facility] [address] [place] [address] Sancho Yoon MD Pre-visit Planning (SDOH Screening negative and Tobacco screening negative) 07/18/[address] [address] Huong Hurtado, ELISEO Results; Interoffice Coordination 07/07/2025 Refill [facility] [address] [place] [address] 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 RN Chronic right-sided low back pain with right-sided sciatica 07/07/2025 Telephone [facility] [address] [place] [address] Sancho Yoon MD 07/04/2025 Refill [facility] [address] [place] [phone] Kim Wise ANP Pure hypercholesterolemia 06/27/2025 9:45 AM EDT Office Visit [address] [address] Janis Cm, NESTOR Chronic right-sided low back pain with right-sided sciatica (Primary Dx); Long-term current use of opiate analgesic 06/27/2025 Travel 06/13/2025 Orders Only [facility] External Provider, [facility] 06/13/2025 Refill [facility] [address] [place] [address] 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, spanish interpreter right-sided low back pain with right-sided sciatica 06/13/[address] [address] Sancho Yoon MD Med Refill 06/08/2025 10:00 AM EDT Office Visit [address] [address] Jayde Rosario MD Pulmonary embolism, other, unspecified chronicity, unspecified whether acute cor pulmonale present (CMS/HCC) (Primary Dx); Chronic hoarseness; Essential hypertension; Transaminitis; Other acute pulmonary embolism, unspecified whether acute cor pulmonale present ([facility]) 06/08/2025 Travel 05/31/[address] [address] Sancho Yoon MD ER Follow-up 05/30/2025 Orders Only GENERIC EXTERNAL DATA DEPARTMENT Provider, Generic External Data 05/29/2025 Orders Only GENERIC EXTERNAL DATA DEPARTMENT Provider, Generic External Data 05/29/2025 Patient Outreach [address] [address] Sancho Yoon MD Transition Of Care (Tcm) (error) 05/25/[address] [address] Sancho Yoon MD Presence of inferior vena cava filter 05/24/2025 Telephone [facility] [address] [place] [address] Sancho Yoon MD Results 05/24/2025 Telephone [facility] [address] [place] [address] Chad Foley MD CRITICAL RESULT 05/24/2025 Orders Only GENERIC EXTERNAL DATA DEPARTMENT Provider, Generic External Data 05/23/2025 9:45 AM EDT Office Visit [address] [address] Janis Cm, NESTOR Chronic right-sided low back pain with right-sided sciatica (Primary Dx); Long-term current use of opiate analgesic 05/23/[address] [address] Mirian Calderon, RN Oxycodone count discrepancy; PREPRESS SUPERVISOR Agreement renewed today 05/23/2025 Travel 05/22/[address] [address] Ina Zimmerman, ELISEO Results 05/18/[address] [address] Sancho Yoon MD Nurse Triage 05/17/2025 8:40 AM EDT Office Visit [facility] [address] [place] [address] Chad Foley MD Right-sided chest pain (Primary Dx); Essential hypertension 05/17/2025 Telephone [facility] [address] [place] [address] Ina Zimmerman RN imaging 05/17/2025 Travel 05/15/2025 Refill [facility] [address] [place] [address] 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, spanish interpreter right-sided low back pain with right-sided sciatica 05/15/2025 Telephone [facility] [address] [place] [address] Sancho Yoon MD Results (CTPA shows PE) 05/10/[address] [address] Sancho Yoon MD 05/09/2025 1:15 PM EDT Office Visit [address] [address] Sancho Yoon MD Essential hypertension (Primary Dx); Right foot pain; Skin lesion of left leg 05/09/2025 Travel 05/08/[address] [address] Sancho Yoon MD chartprep 05/05/2025 Orders Only GENERIC EXTERNAL DATA DEPARTMENT Provider, Generic External Data 05/03/2025 Telephone [facility] [address] [place] [address] 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 RN 05/03/[address] [address] Sancho Yoon MD Medication Question from Last 3 Months Immunizations Immunization Administration [...] Mass Index 29.43 08/01/2025 1:13 PM EDT Plan of Treatment Upcoming Encounters Date Type Department Care Team (Late st Contact Info) Description 09/18/2025 8:00 AM EST Office Visit [facility] [address] [place] [address] Yi Sanchez 09/26/2025 9:45 AM EST Office Visit [facility] [address] [facility] [place] [address] 10/26/2025 2:15 PM EST Office Visit [facility] [address] [facility] [place] [address] Sancho Yoon MD [address] [facility] [place] [address] Health Maintenance Due Date Last Done Comments [...] 09/29/2025 09/29/2024 Depression Screening 09/29/2025 09/29/2024, 09/29/20 Dental X-Ray: Full Mouth 07/23/2026 07/22/2023, 10/16 SDOH Screening 07/24/2026 07/24/2025 Tobacco Screening 08/01/2026 08/01/2025 Colonoscopy 02/17/2027 02/17/2022 Colorectal Cancer Screening 02/17/2027 Lipid Panel 10/05/2029 08/02/2025, 09/17, 06/24/2022, Additional history exists DTaP/Tdap/Td Vaccines (4 - Td or Tdap) [...] Procedure Name Priority Date/Time Associated Diagnosis Comments URIC ACID Routine 08/02/2025 8:56 AM EDT CBC WITH AUTO DIFFERENTIAL Routine 08/02/2025 8:56 AM EDT LIPID PANEL, STANDARD Routine 08/02/2025 8:56 AM EDT Essential hypertension PSA, SCREEN Routine 08/02/2025 8:56 AM EDT Preventative health care POCT DU-14 URINE DRUG SCREEN Routine 06/27/2025 10:22 AM EDT Chronic right-sided low back pain with right-sided sciatica US ABDOMEN COMPLETE WITH ELASTOGRAPHY Routine 06/13/2025 10:30 AM EDT B TYPE NATRIURETIC PEPTIDE (BNP) Routine 05/30/2025 10:21 PM EDT XR CHEST 2 VIEWS Routine 05/30/2025 10:1 9 PM EDT SARS COV2/INFLUENZA A/B AND RSV [...] [facility] Routine 05/05/2025 10:32 AM EDT PROPHYLAXIS - ADULT Routine 03/15/2025 8 :00 AM EDT Dental calculus Dental plaque PERIODIC ORAL EVALUATION - ESTABLISHED PATIENT Routine 03/15/2025 8:00 AM EDT BITEWINGS - 4 RADIOGRAPHIC IMAGES Routine 09/07/2024 8:00 AM EDT INTRAORAL - COMPLETE SERIES OF RADIOGRAPHIC IMAGES Routine 07/22/2023 3:00 PM EDT Periodontal disease Dental calculus HM COLONOSCOPY Routine 02/17/2022 from Last 3 Months or Most Recently Relevant to Health Maintenance Results * PSA, Screen (08/02/2025 8:56 AM EDT) PSA, Total 2.01 <0.05 - 4.0 ng/mL [facility] Comment:PSA methodology: Magno Lackey i ChemiluminescentMicroparticle Immunoassay (CMIA) Blood Venous blood specimen / Unknown 08/02/2025 8:56 AM EDT 08/02/2025 8:56 AM EDT us Sancho Mayberry MD LAB BLOOD ORDERABLES Final Result [facility] [address] [place] [address] [phone] * (ABNORMAL) CBC auto differential (08/02/2025 8:56 AM EDT) Only the most recent of3 resultswithin the time period is included. White Blood Count 4.9 4.8 - 10.8 X10*3/uL [facility] Red Blood Count 4.51(L) 4.60 - 5.80 X10*6/uL [facility] Hemoglobin 13.8(L) 14.0 - 18.0 g/dl [facility] Hematocrit 40.9(L) 42.0 - 52.0 % [facility] Mean Corpuscular Volume 90.7 80.0 - 98.0 fL [facility] Mean Corpuscular Hemoglobin 30.6 27.0 - 33.0 pg [facility] Mean Corpuscular HGB Conc 33.7 31.0 - 36.0 g/dl [facility] Red Cell Distribution Width 13.2 11.0 - 16.0 % [facility] Platelet Count 214 160 - 400 X10*3/uL [facility] Mean Platelet Volume 10.2 9.4 - 12.4 fL [facility] Neutrophils Percent Auto 35.2(L) 45 - 73 % [facility] Imm Gran Pct Auto 0.2 0.0 - 0.4 % [facility] Lymphocytes Percent Auto 49.6(H) 20 - 40 % [facility] Monocytes Percent Auto 9.3 2 - 11 % [facility] Eosinophils Percent Auto 5.1(H) 0 - 4 % [facility] Basophils Percent Auto 0.6 0 - 2 % [facility] NRBC Pct Auto 0.0 0.0 - 0.2 /100WBC [facility] Neutrophils Absolute Auto 1.7(L) 2.0 - 8.3 x10*3/uL [facility] Imm Gran Abs Auto 0.01 0.00 - 0.03 X10*3/uL [facility] Lymphocytes Absolute Auto 2.4 1.2 - 4.9 X10*3/uL [facility] Monocytes Absolute Auto 0.5 0.1 - 1.2 X10*3/uL [facility] Eosinophils Absolute Auto 0.3 0.0 - 0.4 X10*3/uL [facility] Basophils Absolute Auto 0.0 0.0 - 0.2 X10*3/uL [facility] NRBC Abs Auto 0.000 0.0 - 0.012 X10*3/uL [facility] 08/02/2025 8:56 AM EDT 08/02/2025 8:56 AM EDT Sancho Mayberry MD LAB BLOOD ORDERABLES Final Result Performing Organization Address City/[facility]/ZIP Co de Phone Number [facility] [address] [place] [address] [phone] * Uric acid (08/02/2025 8:56 AM EDT) Uric Acid 4.9 3.4 - 7.0 mg/dL [facility] 08/02/2025 8:56 AM EDT 08/02/2025 8:56 AM EDT Sancho Mayberry MD LAB BLOOD ORDERABLES Final Result [facility] [address] [place] [phone] * (ABNORMAL) Lipid Panel, Standard (08/02/2025 8:56 AM EDT) Triglycerides 224(H) <150 mg/dL [facility] Comment:Desirable Triglyceri de: less than 150 mg/dLBorderline High Triglyceride 150-199 mg/dLHigh Triglyceride: 200-499 mg/dLVery High Triglyceride: greater than or equal to 5OO mg/dL Cholesterol 163 <200 mg/dL [facility] Comment:Desirable Cholestero l: less than 200 mg/dLBorderline High Cholesterol: 200-239 mg/dLHigh Cholesterol: greater than 239 mg/dL LDL Cholesterol Calculated 81 <100 mg/dL [facility] Comment:Desirable LDL: less than 100 mg/dLNear Optimal/Above Optimal LDL: 110- 129 mg/dLBorderline High LDL: 130-159 mg/dLHigh LDL: 160-189 mg/dLVery High LDL: greater than or equal to 190 mg/dL HDL Cholesterol 38(L) >40 mg/dL [facility] Comment:Desirable HDL: great er than 40 mg/dL Note: This HDL assay may give artificially low results in patients with liver disease. Blood Venous blood specimen / Unknown 08/02/2025 8:56 AM EDT 08/02/2025 8:56 AM EDT Sancho Mayberry MD LAB BLOOD ORDERABLES Final Result [facility] [address] [place] [phone] * (ABNORMAL) POCT DU-14 Urine Drug Screen [...] - 06/27/2025 10:22 AM EDT .UTOX cup Lot#[id number] Exp. 08/22/26 Internal Pass Control us Janis Cm SITE MANAGER POINT OF CARE TEST ENTER/EDIT ORDERABLES Final Result * US Abdomen Comp w elastography (06/13/2025 10:30 AM EDT) Anatomical Region Laterality Modality Abdomen Ultrasound 06/13/2025 10:3 0 AM EDT Narrative 06/13/2025 11:13 AM EDT [address] [address] Ultrasound Report Signed Patient: Clint Bcekford MR#: [id number] : 1955 Acct:[id number] Age/Sex: 69 / M ADM Date: 06/13/25 Loc: HO.US Attending Dr: Joshua Valdivia MD Ordering Physician: Joshua Valdivia MD Date of Service: 06/13/25 Procedure(s): US abdomen comp w elastography Accession Number(s): [id number] cc: Sancho Bean MD; Joshua Valdivia MD [...] 06/13/25 1110 DD/ 1030 TD/TT: 06/13/25 1100 Robotics Technologist: Procedure Note Donotuseinterpreter, Image - 06/13/2025 [place] [address] Ultrasound Report Signed Patient: Clint Beckford#: [id number] : 5Acct:[id number] Age/Sex: 69 / MADM Date: 06/13/25 Loc: HO.US Attending Dr: Joshua Valdivia MD Ordering Physician: Joshua Valdivia MD Date of Service: 06/13/25 Procedure(s): US abdomen comp w elastography Accession Number(s): [id number] cc: Sancho Bean MD; Joshua Valdivia MD [...] 06/13/25 1110 DD/ 1030 TD/TT: 06/13/25 1100 Robotics Technologist: us [facility] External Provider IMG US PROCEDURES Final Result * B Type Natriuretic Peptide (BNP) (05/30/2025 10:21 PM EDT) Only the most recent of2 resultswithin the time period is included. B Type Natriuretic Peptide <10 <100 pg/mL [facility] 05/30/2025 10:2 1 PM EDT 05/30/2025 10:24 PM EDT Generic External Data Provider LAB BLOOD ORDERAB LES Final Result [facility] [address] [place] [phone] * XR Chest 2 Views (05/30/2025 10:19 PM EDT) Anatomical Region Laterality Modality Chest Radiographic Liz ging 05/30/2025 10:1 9 PM EDT Narrative 05/30/2025 10:20 PM EDT [address] [address] XRay Report Signed Patient: Clint Beckford MR#: [id number] : 1955 Acct:[id number] Age/Sex: 69 / M ADM Date: 05/30/25 Loc: HO.ED Attending Dr: Ordering Physician: Ashleigh Pedro DO Date of Service: 05/30/25 Procedure(s): XR chest 2V Accession Number(s): [id number] cc: Sancho Bean MD; Ashleigh Pedro DO [...] in OV> 05/30/252219 DD/ 18 TD/TT: 05/30/252218 Robotics Technologist: Procedure Note Donotuseinterpreter, Image - 05/30/[address] [address] XRay Report Signed Patient: Clint BeckfordMR#: [id number] : 5Acct:[id number] Age/Sex: 69 / MADM Date: 05/30/25 Loc: .ED Attending Dr: Ordering Physician: Ashleigh Pedro DO Date of Service: 05/30/25 Procedure(s): XR chest 2V Accession Number(s): [id number] cc: Sancho Bean MD; Ashleigh Pedro DO [...] Mckee MD Signed By: <Electronically signed by hSeldon Mckee MD in OV> 05/30/252219 DD/ 18 TD/TT: 05/30/252218 Robotics Technologist: [facility] External Provider IMG XR PROCEDURES Final Result * SARS-CoV-2 RNA, Influenza A/B, and RSV RNA, Ql NAAT (05/30/2025 10:16 PM EDT) Pathologist [facility] Influenza A PCR NEGATIVE Negative [facility] Influenza B PCR NEGATIVE Negative [facility] Resp Syncy Virus RNA Qual PCR NEGATIVE Negative [facility] SARS COV2 PCR NEGATIVE Negative [facility] Comment:All test results mus t [...] use by authorized laboratories.Testing performed on the [employer] GeneXpert utilizingreal-time RT-PCR.All SARS CoV2 and positive influenza A/B results arereported to [facility]. 05/30/2025 10:1 6 PM EDT 05/30/2025 10:21 PM EDT Generic External Data Provider LAB MICROBIOLOGY - GENERAL ORDERABLES Final Result [facility] [address] [place] [phone] * High Sensitivity Troponin I (05/30/2025 5:25 PM EDT) Only the most recent of2 resultswithin the time period is included. TROPONIN I HIGH SENSITIVITY <2.7 <3.5 - 35.0 ng/L [facility] Comment:The Levine high sens itivity Troponin-I results should beused in conjunction with other diagnostic information suchas ECG, clinical observations and information, and patientsymptoms to aid in the diagnosis of [place]. 05/30/2025 5:25 PM EDT 05/30/2025 5:28 PM EDT Generic External Data Provider LAB BLOOD ORDERAB LES Final Result Performing Organization Address [facility] Co de Phone Number [facility] [address] [place] [address] [phone] * (ABNORMAL) Prothrombin Time-INR (05/30/2025 5:25 PM EDT) Only the most recent of2 resultswithin the time period is included. [facility] Prothrombin Time 19.9(H) 10.9 - 12.4 SEC [facility] INTERNATIONAL NORM RATIO 1.7(H) 0.9 - 1.1 [facility] Comment:INTERNATIONAL NORMAL IZED RATIO (INR) [...] 5:25 PM EDT 05/30/2025 5:28 PM EDT [employer] External Data Provider LAB BLOOD ORDERAB LES Final Result Performing Organization Address [facility] Co de Phone Number [facility] [address] [place] [phone] * Magnesium (05/30/2025 5:25 PM EDT) Only the most recent of2 resultswithin the time period is included. [facility] Magnesium 2.2 1.6 - 2.6 mg/dL [facility] 05/30/2025 5:25 PM EDT 05/30/2025 5:28 PM EDT us Generic External Data Provider LAB BLOOD ORDERAB LES Final Result [facility] [address] [place], [place] [phone] * (ABNORMAL) Comprehensive Metabolic Panel (05/30/2025 5:25 PM EDT) Sodium 142 135 - 145 mmol/L [facility] Potassium 4.0 3.3 - 5.1 mmol/L [facility] Chloride 108 96 - 108 mmol/L [facility] Carbon Dioxide 25 22 - 29 mmol/L [facility] Anion Gap 13 12 - 20 [facility] Urea Nitrogen (BUN) 17(H) 9 - 16 mg/dL [facility] Creatinine, Serum 1.03 0.5 - 1.4 mg/dL [facility] Creatinine Clr Calc Pharmacy 79.9 [facility] Comment:eGFR (calculated fro m the MDRD study equation) and eCrCl(calculated from the Cockcroft-Gault equation) are based ondifferent parameters and may not yield comparable results.If eCrCl result is absurd, please check patient'sheight/weight. Estimated Glomerular Filt Rate >60 [facility] Comment:Chronic Kidney Disea se: Estimated GFR < 60 mL/min/1.56l7Odwpue Kidney Disease: Estimated GFR < 15 mL/min/1.73m2 Glucose 110 60 - 115 mg/dL [facility] Calcium 8.9 8.4 - 10.2 mg/dL [facility] Bilirubin, Total 0.9 0.0 - 1.0 mg/dL [facility] Aspartate Amino Transferase 49(H) 5 - 37 U/L [facility] Alanine Aminotransferase 66(H) 0 - 40 U/L [facility] Total Protein 7.9 6.5 - 8.0 g/dL [facility] Albumin Level 4.9 3.5 - 5.0 g/dL [facility] Alkaline Phosphatase 58 39 - 117 U/L [facility] 05/30/2025 5:25 PM EDT 05/30/2025 5:28 PM EDT Generic External Data Provider LAB BLOOD ORDERAB LES Final Result Performing Organization Address [facility] Co de Phone Number [facility] [address] [place] [phone] * (ABNORMAL) PROTHROMBIN TIME WHOLE BLD POC (05/29/2025 12:02 PM EDT) Only the most recent of3 resultswithin the time period is included. Protime 15.8(H) 11.1 - 13.5 sec [facility] 05/29/2025 12:0 2 PM EDT 05/29/2025 12:15 PM EDT Generic External Data Provider LAB BLOOD ORDERAB LES Final Result Performing Organization Address [facility] de Phone Number [facility] [address] [place] [phone] * (ABNORMAL) ~PT, ~INR - ANTI COAG CLINIC (05/29/2025 12:02 PM EDT) Only the most recent of3 resultswithin the time period is included. Prothrombin Time INR 1.3(H) 0.9 - 1.1 [facility] Comment:METER #: [id number] TERNATIONAL NORMALIZED RATIO (INR) REFERENCE RANGES Reference [...] Provider LAB BLOOD ORDERAB LES Final Result [facility] [address] [place] [phone] * [facility] US Lower Extremity Venous Duplex Bilateral (05/25/2025 6:37 PM EDT) 05/25/2025 6:37 PM EDT Narrative [facility] - 05/26/2025 7:24 AM EDT [address] [address] Ultrasound Report Signed Patient: Clint Beckford MR#: [id number] : 1955 Acct:[id number] Age/Sex: 69 / M ADM Date: 05/24/25 Loc: [facility] 475-[address]: Yudith Nascimento MD Ordering Physician: Yudith Nascimento MD Date of Service: 05/25/25 Procedure(s): US venous duplex LE BI Accession Number(s): [id number] cc: Yudith Nascimento MD; Sancho Bean MD [...] OV> 05/26/25720 DD/ 36 TD/TT: 05/25/25 184 Robotics Technologist: Procedure Note Donotuseinterpreter, Image - 05/26/[address] [address] Ultrasound Report Signed Patient: Clint BeckfordMR#: [id number] : 5Acct:[id number] Age/Sex: 69 / MADM Date: 05/24/25 Loc: [facility] 475-[address]: Yudith Nascimento MD Ordering Physician: Yudith Nascimento MD Date of Service: 05/25/25 Procedure(s): US venous duplex LE BI Accession Number(s): [id number] cc: Yudith Nascimento MD; Sancho Bean MD [...] <Electronically signed by Jose Hurtado MDin OV> 05/26/25720 DD/ 36 TD/TT: 05/25/251846 Robotics Technologist: [facility] External Provider CV VASC ULAR PROCEDURES Edited Result - Final Performing Organization Address City/[facility]/ZIP Co de Phone Number [facility] [address] [place] [address] * (ABNORMAL) Partial Thromboplastin Time, Activated (APTT) (05/24/2025 3:20 PM EDT) Partial Thromboplastin Time 41.8(H) 26.0 - 36.8 SEC [facility] Comment:For information rega rding the monitoring of direct thrombininhibitors, please refer to Pharmacy. 05/24/2025 3:20 PM EDT 05/24/2025 3:23 PM EDT Generic External Data Provider LAB BLOOD ORDERAB LES Final Result [facility] [address] [place] [phone] * (ABNORMAL) Hepatic Function Panel (05/24/2025 3:20 PM EDT) Bilirubin, Total 0.8 0.0 - 1.0 mg/dL [facility] Bilirubin, Direct 0.2 0.0 - 0.5 mg/dL [facility] Aspartate Amino Transferase 39(H) 5 - 37 U/L [facility] Alanine Aminotransferase 41(H) 0 - 40 U/L [facility] Total Protein 7.4 6.5 - 8.0 g/dL [facility] Albumin Level 4.4 3.5 - 5.0 g/dL [facility] Alkaline Phosphatase 61 39 - 117 U/L [facility] 05/24/2025 3:20 PM EDT 05/24/2025 3:23 PM EDT us Generic External Data Provider LAB BLOOD ORDERAB LES Final Result [facility] [address] [place] [phone] * (ABNORMAL) Basic Metabolic Panel (05/24/2025 3:20 PM EDT) Sodium 141 135 - 145 mmol/L [facility] Potassium 3.8 3.3 - 5.1 mmol/L [facility] Chloride 109(H) 96 - 108 mmol/L [facility] Carbon Dioxide 26 22 - 29 mmol/L [facility] Anion Gap 10(L) 12 - 20 [facility] Urea Nitrogen (BUN) 12 9 - 16 mg/dL [facility] Creatinine, Serum 0.97 0.5 - 1.4 mg/dL [facility] Creatinine Clr Calc Pharmacy 85.8 [facility] Comment:eGFR (calculated fro m the MDRD study equation) and eCrCl(calculated from the Cockcroft-Gault equation) are based ondifferent parameters and may not yield comparable results.If eCrCl result is absurd, please check patient'sheight/weight. Estimated Glomerular Filt Rate >60 [facility] Comment:Chronic Kidney Disea se: Estimated GFR < 60 mL/min/1.54z1Euvhxi Kidney Disease: Estimated GFR < 15 mL/min/1.73m2 Glucose 153(H) 60 - 115 mg/dL [facility] Calcium 8.3(L) 8.4 - 10.2 mg/dL [facility] 05/24/2025 3:20 PM EDT 05/24/2025 3:23 PM EDT us Generic External Data Provider LAB BLOOD ORDERAB LES Final Result [facility] [address] [place] [phone] * CTA Chest PE Protocal (05/24/2025 11:47 AM EDT) Anatomical Region Laterality Modality Body, Chest Computed Tomogra phy 05/24/2025 11:4 7 AM EDT Narrative 05/24/2025 1:08 PM EDT [address] [address] [address] Scan Report Signed Patient: Clint Beckford MR#: [id number] : 1955 Acct:[id number] Age/Sex: 69 / M ADM Date: 05/24/25 Loc: HO.CT Attending Dr: Chad Foley MD Ordering Physician: CHAD FOLEY MD Date of Service: 05/24/25 Procedure(s): CT angio chest PE protocol Accession Number(s): [id number] cc: CHAD FOLEY MD; Sancho Bean MD Report Number: [id number]: Total DLP = 132.00 mGy-cm EXAMINATION: CT [...] 05/24/25 1305 DD/ 1147 TD/TT: 05/24/25 1221 Robotics Technologist: Procedure Note Donotuseinterpreter, Image - 05/24/[address] [address] [address] Scan Report Signed Patient: Stephanie Beckford#: [id number] : 5Acct:[id number] Age/Sex: 69 / MADM Date: 05/24/25 Loc: HO.CT Attending Dr: Chad Foley MD Ordering Physician: CHAD FOLEY MD Date of Service: 05/24/25 Procedure(s): CT angio chest PE protocol Accession Number(s): [id number] cc: CHAD FOLEY MD; Sancho Bean MD Report Number: [id number]: Total DLP = 132.00 mGy-cm EXAMINATION: CT [...] 05/24/25 1305 DD/ 1147 TD/TT: 05/24/25 1221 Robotics Technologist: Chad Foley MD [facility] CT PROCEDURES Final Result * Colonoscopy (02/17/2022) Colonoscopy performed us Historical Provider HEALTH MAINTENANCE Edited Result - Final from Last 3 Months or Most Recently Relevant to Health Maintenance Insurance [facility] RES[employer]IAL OPTIONS (HMO D-SNP) [place] R[place]D [id number] [facility] Care Teams Complaint Evaluation Officer Relationship Specialty Start Date End Date Sancho Yoon MD [address] [place] [address] PCP - General Internal Medicine 08/16/14 Tae Kong MD [address] [place] [address] Cardiology 07/18/25
--- OUTSIDE RECORDS SUMMARY | 2025-08-02 10:10 | XMS_ITS | Encounter Summary ---
Author Organization [employer] Address [address] [facility] [address] [place] [address] Care Team Providers Care Gps Navigation Installer Name Role Phone Sancho Yoon MD Primary Care Provide r Tae Kong MD Unavailable [phone] Reason for Visit * Reason Comments Med Refill Encounter Details Date Type Department Care Team ([facility] st Contact Info) Description 10/17/2024 Refill [facility] CH[facility] MED & PEDS [address] [place], [place] [phone] Sancho Yoon MD [address] [place] [address] Other chronic pain Social History Tobacco Use [...] Description 09/18/2025 8:00 AM EST Office Visit [facility] ADULT DENTAL [address] [place] [phone] Yi Sanchez 09/26/2025 9:45 AM EST Office Visit [facility] MEDICINE [address] [place] [phone] 10/26/2025 2:15 PM EST Office Visit [facility] MEDICINE [address] [place] [phone] Sancho Yoon MD [address] [place] [address] documented as of this encounter Visit Diagnoses Diagnosis Other chronic pain documented in this encounter Additional Health Concerns Assessment Noted Time PHQ-9 Depression Total Score: 0 09/29/20 24 9:48 AM EST documented as of this encounter Care Teams Gps Navigation Installer Relationship Specialty Start Date End Date Sancho Yoon MD [address] [place] [address] PCP - General Internal Medicine 08/16/14 Tae Kong MD [address] [place] [address] Cardiology 07/18/25 documented as of this encounter
--- OUTSIDE RECORDS SUMMARY | 2025-08-02 10:10 | XMS_ITS | Encounter Summary ---
Author Organization [employer] Address [address] [facility] [address] [place] [address] Care Team Providers Care Emc Storage Architect Name Role Phone Sancho Yoon MD Primary Care Provide r Tae Kong MD Unavailable [phone] Reason for Visit * Reason Comments Med Refill Encounter Details Date Type Department Care Team ([facility] st Contact Info) Description 11/04/2024 Refill [facility] MEDICINE [address] [place] [address] Sancho Yoon MD [address] [place] [address] Erectile dysfunction, unspecified erectile dysfunction type Social [...] Upcoming Encounters Date Type Department Care Team ([facility] st Contact Info) Description 09/18/2025 8:00 AM EST Office Visit [facility] ADULT DENTAL [address] [place] [phone] Yi Sanchez 09/26/2025 9:45 AM EST Office Visit [facility] MEDICINE [address] [place] [phone] 10/26/2025 2:15 PM EST Office Visit [facility] MEDICINE [address] [place] [phone] Sancho Yoon MD [address] [place] [address] documented as of this encounter Visit Diagnoses Diagnosis Erectile dysfunction, unspecified erectile dysfunction type documented in this encounter Additional Health Concerns Assessment Noted Time PHQ-9 Depression Total Score: 0 09/29/20 24 9:48 AM EST documented as of this encounter Care Teams Emc Storage Architect Relationship Specialty Start Date End Date Sancho Yoon MD [address] [place] [phone] PCP - General Internal Medicine 08/16/14 Tae Kong MD [address] [place] [address] Cardiology 07/18/25 documented as of this encounter
== END 2025-08-02 08:44 | disposition home or self-care (01) ==
LOC: HO.LAB 08:43
PROVIDERS: PCP Internal Medicine; Visit Provider Internal Medicine
DX: Z00.00 Encounter for general adult medical examination without abnormal findings (principal); Z12.5 Encounter for screening for malignant neoplasm of prostate; M79.671 Pain in right foot; I10 Essential (primary) hypertension
CPT/HCPCS: 36415; 80061; 84153; 84550; 85025

== ENCOUNTER 2025-09-13 04:43 | Inpatient (IN) | payer OTHER, SELFPAY ==
--- OUTSIDE RECORDS SUMMARY | 2024-12-22 05:00 | XMS_ITS ---
Author Organization [facility] Address [address] [place] [address] Care Team Providers Care Custodial Aide Name Role Phone Raman Mayberry MD, Sancho Primary Care Provide Joshua Harvey [phone] REASON FOR VISIT Patient presents today for hx hep c Encounters Encounter Location Date Provider Diagnosis [facility] [address] [place] [address] 12/22/2024 Joshua Valdivia Plan Of Treatment Next Appt Details Provider Name:Joshua Valdivia , 05/01/2026 09:30:00 AM, [address], [address], [place], [address], Progress Notes * VENANCIO LARRYDOB:[birth year] (69 yo M)Acc No.[id number]:12/22/2024 Progress Notes Patient: Jen YU VENANCIO SUAREZ Provider: Jen Valdivia MD :1955 A ge:69 Y S ex:Male Date:12/22/2024 Address:[address], [place], [place] Pcp:Sancho sandhu MD Subjective: * Chief Complaints: * 1 . Patient presents today for hx hep c. * Medical History: Objective: * Vitals: Assessment: Plan: * Treatment: * * The named appointment provid er may or may not be the originator of this progress note, and it is not deemed complete until electronically signed by the appointment provider. Sign off status: Pending * Provider: Jen Valdivia MD Date: 0 12/22/2024 Generated for Jayla pollock/Megha/Matt on: 1 09:11 AM EDT
[2025-09-13] VITALS (11 sets, daily range): BP systolic 107–180; BP diastolic 72–97; PULSE 59–80; RESP 16–20; TEMP 36.1–36.8; O2SAT 96–99; BMI 29.6; BMI 29.3
--- NOTE | 2025-09-13 | ECG_ITS ---
Test Reason : HIGH BP Blood Pressure : */* mmHG Vent. Rate : 63 BPM Atrial Rate : 63 BPM P-R Int : 180 ms QRS Dur : 92 ms QT Int : 430 ms P-R-T Axes : 18 -20 23 degrees QTcB Int : 440 ms Normal sinus rhythm Minimal voltage criteria for LVH, may be normal variant ( R in aVL ) Borderline ECG When compared with ECG of 30-May-2025 17:17, No significant change was found Referred By: Generic ED Physician Electronically Signed By: BHARAT HDEZ
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
[2025-09-13 05:23] LABS: MANUAL DIFF FLAG NO
[2025-09-13 05:24] LABS: Hematocrit 40.6 % (42.0-52.0); Hemoglobin 13.9 g/dl (14.0-18.0); Imm Gran Abs Auto 0.02 X10*3/uL (0.00-0.03); Imm Gran Pct Auto 0.3 % (0.0-0.4); Lymphocytes Absolute Auto 3.0 X10*3/uL (1.2-4.9); Mean Corpuscular HGB Conc 34.2 g/dl (31.0-36.0); Mean Corpuscular Hemoglobin 30.5 pg (27.0-33.0); Mean Corpuscular Volume 89.2 fL (80.0-98.0); NRBC Abs Auto 0.000 X10*3/uL (0.0-0.012); NRBC Pct Auto 0.0 /100WBC (0.0-0.2); Platelet Count 209 X10*3/uL (160-400); Red Blood Count 4.55 X10*6/uL (4.60-5.80); White Blood Count 5.9 X10*3/uL (4.8-10.8)
--- NOTE | 2025-09-13 05:30 | PC.NURSE ---
medicated per mar,
[2025-09-13 05:41] LABS: Alanine Aminotransferase 48 U/L (0-40); Albumin Level 4.5 g/dL (3.5-5.0); Alkaline Phosphatase 62 U/L (39-117); Anion Gap 16 (12-20); Aspartate Amino Transferase 36 U/L (5-37); Blood Urea Nitrogen 14 mg/dL (9-16); Calcium 8.8 mg/dL (8.4-10.2); Carbon Dioxide 26 mmol/L (22-29); Chloride 118 mmol/L (96-108); Creatinine Clr Calc Pharmacy 85.5; Estimated Glomerular Filt Rate > 60; Potassium 4.5 mmol/L (3.3-5.1); Sodium 155 mmol/L (135-145); Total Protein 7.4 g/dL (6.5-8.0)
[2025-09-13 05:49] LABS: NT Pro B Type Natriuretic Pept 31.2 pg/mL (<300); Troponin-I High Sensitivity < 2.7 ng/L (<3.5-35.0)
[2025-09-13] MEDS: Dextrose 5 % and 0.45 % NaCl 1,000 ML 125 ML IVCONT ×2 (06:11→14:20)
--- NOTE | 2025-09-13 06:16 | PC.NURSE ---
Iv started and fluids.
--- NOTE | 2025-09-13 07:07 | PC.NURSE ---
Initial contact with pt. Pt ambulated to restroom unassisted, urine sample sent.
[2025-09-13 07:23] LABS: Appearance Urine Clear; Glucose Urine UA Negative (Negative); PH 5.5 (5.0-9.0); Specific Gravity - Urine 1.010 (1.005-1.025)
--- NOTE | 2025-09-13 08:51 | PHA.MEDREC ---
Addendum entered by Jacque Camacho RPh 09/13/25 09:29: Reviewed by [facility] Original Note: Pharmacy Consult ? Medication Reconciliation Pharmacy has completed the medication reconciliation. Spoke with pt, utilizing specimen boss services, and he was able to confirm his medications. Pt confirmed he still takes Tamsulosin 0.4mg caps 1 @ BEDTIME (LF 07/07 for 30 days).
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
--- OUTSIDE RECORDS SUMMARY | 2025-09-13 09:10 | XMS_ITS | Encounter Summary ---
Author Organization [employer] Address 75 [facility] 7t [place] [address] Care Team Providers Care Paver Installer Name Role Phone Sancho Yoon MD Primary Care Provide r Tae Kong MD Unavailable [phone] Reason for Visit * Reason Comments Med Refill Encounter Details Date Type Department Care Team ([facility] st Contact Info) Description 08/08/2025 Refill [facility] MED & PEDS [address] [place] [address] Miesha Schwartz, DO [address] [place] [address] Chronic right-sided low back pain with right-sided [...] Description 09/18/2025 8:00 AM EST Office Visit [facility] ADULT DENTAL [address] [place] [address] Laura Yi 09/26/2025 9:45 AM EST Office Visit [facility] MEDICINE [address] [place] [address] 10/26/2025 2:15 PM EST Office Visit [facility] MEDICINE [address] [place] [address] Sancho Yoon MD [address] [place] [address] documented as of this encounter Visit Diagnoses Diagnosis Chronic right-sided low back pain with right-sided sciatica documented in this encounter Additional Health Concerns Assessment Noted Time PHQ-9 Depression Total Score: 0 09/29/20 24 9:48 AM EST documented as of this encounter Care Teams Paver Installer Relationship Specialty Start Date End Date Sancho Yoon MD [address] [place] [address] PCP - General Internal Medicine 08/16/14 Tae Kong MD [address] [place] [address] Cardiology 07/18/25 documented as of this encounter
--- OUTSIDE RECORDS SUMMARY | 2025-09-13 09:10 | XMS_ITS | Encounter Summary ---
Author Organization [employer] Address 75 [facility] 7t [place] [address] Care Team Providers Care Highway Inspector Name Role Phone Sancho Yoon MD Primary Care Provide r Tae Kong MD Unavailable [phone] Reason for Visit * Reason Onset Date Comments Med Refill 04/03/2025 Encounter Details Date Type Department Care Team ([facility] st Contact Info) Description 04/03/2025 Telephone [facility] MEDICINE [address] [place] [address] Sancho Yoon MD [address] [place] [address] Med Refill Social History Tobacco Use Types [...] immediate release tablet To be sent to: [facility] documented in this encounter Plan of Treatment Upcoming Encounters Date Type Department Care Team (Late st Contact Info) Description 09/18/2025 8:00 AM EST Office Visit [facility] ADULT DENTAL [address] [place] [address] Yi Sanchez 09/26/2025 9:45 AM EST Office Visit [facility] MEDICINE [address] [place] [address] 10/26/2025 2:15 PM EST Office Visit [facility] MEDICINE [address] [place] [address] Sancho Yoon MD [address] [place] [address] documented as of this encounter Visit Diagnoses Not on filedocumented in this encounter Additional Health Concerns Assessment Noted Time PHQ-9 Depression Total Score: 0 09/29/20 24 9:48 AM EST documented as of this encounter Care Teams Highway Inspector Relationship Specialty Start Date End Date Sancho Yoon MD [address] [place] [address] PCP - General Internal Medicine 08/16/14 Tae Kong MD [address] [place] [address] Cardiology 07/18/25 documented as of this encounter
--- OUTSIDE RECORDS SUMMARY | 2025-09-13 09:10 | XMS_ITS | Encounter Summary ---
Author Organization [employer] Address 75 [facility] 7t [place] [address] Care Team Providers Care [employer] Special Education Teacher Name Role Phone Sancho Yoon MD Primary Care Provide r Tae Kong MD Unavailable [phone] Reason for Visit * Reason Onset Date Comments Med Refill 06/13/2025 Encounter Details Date Type Department Care Team ([facility] st Contact Info) Description 06/13/2025 Telephone [facility] MEDICINE [address] [place] [address] Sancho Yoon MD [address] [place] [address] Med Refill Social History Tobacco Use Types [...] immediate release tablet To be sent to: [facility] documented in this encounter Plan of Treatment Upcoming Encounters Date Type Department Care Team (Late st Contact Info) Description 09/18/2025 8:00 AM EST Office Visit [facility] ADULT DENTAL [address] [place] [address] Yi Sanchez 09/26/2025 9:45 AM EST Office Visit [facility] MEDICINE [address] [place] [address] 10/26/2025 2:15 PM EST Office Visit [facility] MEDICINE [address] [place] [address] Sancho Yoon MD [address] [place] [address] documented as of this encounter Visit Diagnoses Not on filedocumented in this encounter Additional Health Concerns Assessment Noted Time PHQ-9 Depression Total Score: 0 09/29/20 9:48 AM EST documented as of this encounter Care Teams [employer] Special [employer] Teacher Relationship Specialty Start Date End Date Sancho Yoon MD [address] [place] [address] PCP - General Internal Medicine 08/16/14 Tae Kong MD [address] [place] [address] Cardiology 07/18/25 documented as of this encounter
--- OUTSIDE RECORDS SUMMARY | 2025-09-13 09:10 | XMS_ITS | Encounter Summary ---
Author Organization [employer] Address 75 [facility] 7t [place] [address] Care Team Providers Care Enrobing Machine Feeder Name Role Phone Sancho Yoon MD Primary Care Provide r Tae Kong MD Unavailable [phone] Reason for Visit * Reason Comments Med Refill Encounter Details Date Type Department Care Team ([facility] st Contact Info) Description 09/06/2025 Refill [facility] MEDICINE [address] [place] [address] Sancho Yoon MD [address] [place] [address] Essential hypertension Social History Tobacco Use Types [...] Description 09/18/2025 8:00 AM EST Office Visit [facility] ADULT DENTAL [address] [place] [address] Yi Sanchez 09/26/2025 9:45 AM EST Office Visit [facility] MEDICINE [address] [place] [address] 10/26/2025 2:15 PM EST Office Visit [address] [address] Sancho Yoon MD [address] [place] [address] documented as of this encounter Visit Diagnoses Diagnosis Essential hypertension Unspecified essential hypertension documented in this encounter Additional Health Concerns Assessment Noted Time PHQ-9 Depression Total Score: 0 09/29/20 24 9:48 AM EST documented as of this encounter Care Teams Enrobing Machine Feeder Relationship Specialty Start Date End Date Sancho Yoon MD [address] [place] [address] PCP - General Internal Medicine 08/16/14 Tae Kong MD [address] [place] [address] Cardiology 07/18/25 documented as of this encounter
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
--- OUTSIDE RECORDS SUMMARY | 2025-09-13 09:10 | XMS_ITS | Encounter Summary ---
Author Organization [employer] Address 75 [facility] 7t [place] [address] Care Team Providers Care Nurse Researcher Name Role Phone Sancho Yoon MD Primary Care Provide r Tae Kong MD Unavailable [phone] Encounter Details Date Type Department Care Team (Latest Contact Info) Description 04/16/2021 Abstract [facility] CONVERSIONS Dental, Provider, DDS Social History [...] Visit [facility] ADULT DENTAL [address] [place] [address] Yi Sanchez 09/26/2025 9:45 AM EST Office Visit [facility] MEDICINE [address] [place] [address] 10/26/2025 2:15 PM EST Office Visit [facility] MEDICINE [address] [place] [address] Sancho Yoon MD [address] [place] [address] documented as of this encounter Visit Diagnoses Not on filedocumented in this encounter Care Teams Nurse Researcher Relationship Specialty Start Date End Date Sancho Yoon MD [address] [place] [address] PCP - General Internal Medicine 08/16/14 Tae Kong MD [address] [place] [address] Cardiology 07/18/25 documented as of this encounter
--- OUTSIDE RECORDS SUMMARY | 2025-09-13 09:10 | XMS_ITS | Encounter Summary ---
Author Organization [employer] Address 75 [facility] 7t [place] [address] Care Team Providers Care Locomotive Crane Operator Name Role Phone Sancho Yoon MD Primary Care Provide r Tae Kong MD Unavailable [phone] Encounter Details Date Type Department Care Team (Latest Contact Info) Description 10/26/[address] [facility] CONVERSIONS Dental, Provider, DDS Social History [...] 09/18/2025 8:00 AM EST Office Visit [facility] ADULT DENTAL [address] [place] [address] Yi Sanchez 09/26/2025 9:45 AM EST Office Visit [facility] MEDICINE [address] [place] [address] 10/26/2025 2:15 PM EST Office Visit [facility] MEDICINE [address] [place] [address] Sancho Yoon MD [address] [place] [address] documented as of this encounter Visit Diagnoses Not on filedocumented in this encounter Care Teams Locomotive Crane Operator Relationship Specialty Start Date End Date Sancho Yoon MD [address] [place] [address] PCP - General Internal Medicine 08/16/14 Tae Kong MD [address] [place] [address] Cardiology 07/18/25 documented as of this encounter
--- OUTSIDE RECORDS SUMMARY | 2025-09-13 09:10 | XMS_ITS | Encounter Summary ---
Author Organization [employer] Address 75 [facility] 7t [place] [address] Care Team Providers Care Senior Production Manager Name Role Phone Sancho Yoon MD Primary Care Provide r Tae Kong MD Unavailable [phone] Encounter Details Date Type Department Care Team (Latest Contact Info) Description 07/04/2022 Abstract [facility] CONVERSIONS Dental, Provider, DDS Social History [...] Description 09/18/2025 8:00 AM EST Office Visit [facility] ADULT DENTAL [address] [place] [address] Yi Sanchez 09/26/2025 9:45 AM EST Office Visit [facility] MEDICINE [address] [place] [address] 10/26/2025 2:15 PM EST Office Visit [facility] MEDICINE [address] [place] [address] Sancho Yoon MD [address] [place] [address] documented as of this encounter Visit Diagnoses Not on filedocumented in this encounter Care Teams Senior Production Manager Relationship Specialty Start Date End Date Sancho Yoon MD [address] [place] [address] PCP - General Internal Medicine 08/16/14 Tae Kong MD [address] [place] [address] Cardiology 07/18/25 documented as of this encounter
--- OUTSIDE RECORDS SUMMARY | 2025-09-13 09:10 | XMS_ITS | Encounter Summary ---
Author Organization [employer] Address [address] [facility] 7t [place] [address] Care Team Providers Care Policy And Planning Manager Name Role Phone Sancho Yoon MD Primary Care Provide r Tae Kong MD Unavailable [phone] Reason for Visit * Reason Onset Date Comments Med Refill 09/04/2025 Encounter Details Date Type Department Care Team ([facility] st Contact Info) Description 09/04/[address] [facility] MEDICINE [address] [place] [address] Sancho Yoon MD [address] [place] [address] Med Refill Social History Tobacco Use Types [...] encounter Miscellaneous Notes * Telephone Encounter - Hardik Retana - 09/04/2025 10:10 AM EDT TC from pt requesting medication refill. Medications needing refill : oxyCODONE (Roxicodone) 5 MG immediate release tablet To be sent to: [facility] documented in this encounter Plan of Treatment Upcoming Encounters Date Type Department Care Team (Late st Contact Info) Description 09/18/2025 8:00 AM EST Office Visit [facility] ADULT DENTAL [address] [place] [address] Yi Sanchez 09/26/2025 9:45 AM EST Office Visit [facility] MEDICINE [address] [place] [address] 10/26/2025 2:15 PM EST Office Visit [facility] MED[facility]INE [address] [place] [address] Sancho Yoon MD [address] [place] [address] documented as of this encounter Visit Diagnoses Not on filedocumented in this encounter Additional Health Concerns Assessment Noted Time PHQ-9 Depression Total Score: 0 09/29/20 9:48 AM EST documented as of this encounter Care Teams Policy And Planning Manager Relationship Specialty Start Date End Date Sancho Yoon MD [address] [place] [address] PCP - General Internal Medicine 08/16/14 Tae Kong MD [address] [place] [address] Cardiology 07/18/25 documented as of this encounter
--- OUTSIDE RECORDS SUMMARY | 2025-09-13 09:10 | XMS_ITS | Encounter Summary ---
Author Organization [employer] Address [address] [facility] 7t [place] [address] Care Team Providers Care Dental Instructor Name Role Phone Sancho Yoon MD Primary Care Provide r Tae Kong MD Unavailable [phone] Reason for Visit * Reason Comments Med Refill Encounter Details Date Type Department Care Team ([facility] st Contact Info) Description 10/21/2023 Refill [facility] MEDICINE [address] [place] [address] Sancho Yoon MD [address] [place], [place] [phone] Pure hypercholesterolemia Social History Tobacco Use Types [...] Description 09/18/2025 8:00 AM EST Office Visit [facility] ADULT DENTAL [address] [place] [address] Yi Sanchez 09/26/2025 9:45 AM EST Office Visit [facility] [address] [place] [address] 10/26/2025 2:15 PM EST Office Visit [facility] [address] [place] [address] Sancho Yoon MD [address] [place] [address] documented as of this encounter Visit Diagnoses Diagnosis Pure hypercholesterolemia documented in this encounter Additional Health Concerns Assessment Noted Time PHQ-9 Depression Total Score: 3 03/23/20 23 1:07 PM EDT documented as of this encounter Care Teams Dental Instructor Relationship Specialty Start Date End Date Sancho Yoon MD [address] [place] [address] PCP - General Internal Medicine 08/16/14 Tae Kong MD [address] [place] [address] Cardiology 07/18/25 documented as of this encounter
--- OUTSIDE RECORDS SUMMARY | 2025-09-13 09:10 | XMS_ITS | Encounter Summary ---
Author Organization [employer] Address [address] [facility] 7t [place] [address] Care Team Providers Care Laundry Machine Operator Name Role Phone Sancho Yoon MD Primary Care Provide r Tae Kong MD Unavailable [phone] Reason for Visit * Reason Comments Med Refill Encounter Details Date Type Department Care Team ([facility] st Contact Info) Description 08/07/2025 Refill [facility] MED & PEDS [address] [place] [address] Miesha Schwartz, DO [address] [place] [address] Chronic right-sided low back pain with right-sided [...] Description 09/18/2025 8:00 AM EST Office Visit [facility] ADULT DENTAL [address] [place] [address] Laura Yi 09/26/2025 9:45 AM EST Office Visit [facility] MEDICINE [address] [place] [address] 10/26/2025 2:15 PM EST Office Visit [facility] [address] [place] [address] Sancho Yoon MD [address] [place] [address] documented as of this encounter Visit Diagnoses Diagnosis Chronic right-sided low back pain with right-sided sciatica documented in this encounter Additional Health Concerns Assessment Noted Time PHQ-9 Depression Total Score: 0 09/29/20 24 9:48 AM EST documented as of this encounter Care Teams Laundry Machine Operator Relationship Specialty Start Date End Date Sancho Yoon MD [address] [place] [address] PCP - General Internal Medicine 08/16/14 Tae Kong MD [address] [place] [address] Cardiology 07/18/25 documented as of this encounter
--- OUTSIDE RECORDS SUMMARY | 2025-09-13 09:10 | XMS_ITS | Encounter Summary ---
Author Organization [employer] Address [address] [facility] 7t [place] [address] Care Team Providers Care Nurse Practitioner Physician Assistant Name Role Phone Sancho Yoon MD Primary Care Provide r Tae Kong MD Unavailable [phone] Reason for Visit * Reason Comments Med Refill Encounter Details Date Type Department Care Team ([facility] st Contact Info) Description 10/21/2023 Refill [facility] MEDICINE [address] [place] [address] Sancoh Yoon MD [address] [place], [place] [phone] Pure hypercholesterolemia Social History Tobacco Use Types [...] Description 09/18/2025 8:00 AM EST Office Visit [facility] ADULT DENTAL [address] [place] [address] Yi Sanchez 09/26/2025 9:45 AM EST Office Visit [facility] MEDICINE [address] [place] [address] 10/26/2025 2:15 PM EST Office Visit [facility] MEDICINE [address] [place] [address] Sancho Yoon MD [address] [place] [address] documented as of this encounter Visit Diagnoses Diagnosis Pure hypercholesterolemia documented in this encounter Additional Health Concerns Assessment Noted Time PHQ-9 Depression Total Score: 3 03/23/20 23 1:07 PM EDT documented as of this encounter Care Teams Nurse Practitioner Physician Assistant Relationship Specialty Start Date End Date Sancho Yoon MD [address] [place] [address] PCP - General Internal Medicine 08/16/14 Tae Kong MD [address] [place] [address] Cardiology 07/18/25 documented as of this encounter
--- OUTSIDE RECORDS SUMMARY | 2025-09-13 09:10 | XMS_ITS | Encounter Summary ---
Author Organization [employer] Address [address] [facility] 7t [place] [address] Care Team Providers Care Forge Utility Worker Name Role Phone Sancho Yoon MD Primary Care Provide r Tae Kong MD Unavailable [phone] Reason for Visit * Reason Onset Date Comments Med Refill 04/17/2025 Encounter Details Date Type Department Care Team ([facility] st Contact Info) Description 04/17/2025 Telephone [facility] MEDICINE [address] [place] [address] Sancho Yoon MD [address] [place] [address] Med Refill Social History Tobacco Use Types [...] immediate release tablet To be sent to: [facility] pharmacy documented in this encounter Plan of Treatment Upcoming Encounters Date Type Department Care Team (Late st Contact Info) Description 09/18/2025 8:00 AM EST Office Visit [facility] ADULT DENTAL [address] [place] [address] Yi Sanchez 09/26/2025 9:45 AM EST Office Visit [facility] MEDICINE [address] [place] [address] 10/26/2025 2:15 PM EST Office Visit [facility] MEDICINE [address] [place] [address] Sancho Yoon MD [address] [place] [address] documented as of this encounter Visit Diagnoses Not on filedocumented in this encounter Additional Health Concerns Assessment Noted Time PHQ-9 Depression Total Score: 0 09/29/20 24 9:48 AM EST documented as of this encounter Care Teams Forge Utility Worker Relationship Specialty Start Date End Date Sancho Yoon MD [address] [place] [address] PCP - General Internal Medicine 08/16/14 Tae Kong MD [address] [place] [address] Cardiology 07/18/25 documented as of this encounter
--- OUTSIDE RECORDS SUMMARY | 2025-09-13 09:10 | XMS_ITS | Encounter Summary ---
Author Organization [employer] Address [address] [facility] 7t [place] [address] Care Team Providers Care Derrick Worker Well Service Name Role Phone Sancho Yoon MD Primary Care Provide r Tae Kong MD Unavailable [phone] Reason for Visit * Reason Onset Date Comments Med Refill 05/01/2025 Encounter Details Date Type Department Care Team ([facility] st Contact Info) Description 05/01/2025 Telephone [facility] MEDICINE [address] [place] [address] Sancho Yoon MD [address] [place] [address] Med Refill Social History Tobacco Use Types [...] immediate release tablet To be sent to: [facility] - [place], [place] - [address] [place] [address] documented in this encounter Plan of Treatment Upcoming Encounters Date Type Department Care Team (Late st Contact Info) Description 09/18/2025 8:00 AM EST Office Visit [facility] ADULT DENTAL [address] [place] [address] Yi Sanchez 09/26/2025 9:45 AM EST Office Visit [facility] MEDICINE [address] [place] [address] 10/26/2025 2:15 PM EST Office Visit [facility] MED[facility]INE [address] [place] [address] Sancho Yoon MD [address] [place] [address] documented as of this encounter Visit Diagnoses Not on filedocumented in this encounter Additional Health Concerns Assessment Noted Time PHQ-9 Depression Total Score: 0 09/29/20 24 9:48 AM EST documented as of this encounter Care Teams Derrick Worker Well Service Relationship Specialty Start Date End Date Sancho Yoon MD [address] [place] [address] PCP - General Internal Medicine 08/16/14 Tae Kong MD [address] [place] [address] Cardiology 07/18/25 documented as of this encounter
--- OUTSIDE RECORDS SUMMARY | 2025-09-13 09:10 | XMS_ITS | Encounter Summary ---
Author Organization [employer] Address [address] [facility] 7t [place] [address] Care Team Providers Care Manager Intermediate Name Role Phone Sancho Yoon MD Primary Care Provide r Tae Kong MD Unavailable [phone] Reason for Visit * Reason Comments Med Refill Encounter Details Date Type Department Care Team ([facility] st Contact Info) Description 02/22/2025 Refill [facility] CHC MED & PEDS [address] [place], [place] [phone] Sancho Yoon MD [address] [place] [address] Other chronic pain Social History Tobacco Use [...] 09/18/2025 8:00 AM EST Office Visit [facility] ADULT DENTAL [address] [place] [address] Yi Sanchez 09/26/2025 9:45 AM EST Office Visit [facility] MEDICINE [address] [place] [address] 10/26/2025 2:15 PM EST Office Visit [facility] MEDICINE [address] [place] [address] Sancho Yoon MD [address] [place] [address] documented as of this encounter Visit Diagnoses Diagnosis Other chronic pain documented in this encounter Additional Health Concerns Assessment Noted Time PHQ-9 Depression Total Score: 0 09/29/20 24 9:48 AM EST documented as of this encounter Care Teams Manager Intermediate Relationship Specialty Start Date End Date Sancho Yoon MD [address] [place] [address] PCP - General Internal Medicine 08/16/14 Tae Kong MD [address] [place] [address] Cardiology 07/18/25 documented as of this encounter
--- OUTSIDE RECORDS SUMMARY | 2025-09-13 09:10 | XMS_ITS | Encounter Summary ---
Author Organization [employer] Address [address] [facility] 7t [place] [address] Care Team Providers Care Machine Sweeper Brush Maker Name Role Phone Sancho Yoon MD Primary Care Provide r Tae Kong MD Unavailable [phone] Encounter Details Date Type Department Care Team (Late Contact Info) Description 10/29/2022 Orders Only [facility] [address] [place] [address] Sancho Yoon MD [address] [place] [address] Pleural scarring (Primary Dx); Abnormal chest CT [...] Upcoming Encounters Date Type Department Care Team ([facility] Contact Info) Description 09/18/2025 8:00 AM EST Office Visit [facility] ADULT DENTAL [address] [place] [address] Yi Sanchez 09/26/2025 9:45 AM EST Office Visit [facility] [address] [place] [address] 10/26/2025 2:15 PM EST Office Visit [facility] [address] [place] [address] Sancho Yoon MD [address] [place] [address] documented as of this encounter Procedures Procedure [...] EST) Protime 42.3(H) 11.1 - 13.5 sec [facility] 12/18/2022 2:35 PM EST 12/18/2022 2:37 PM EST us [facility] External Provider LAB BLO OD ORDERABLES Final Result [facility] [address] [place] [address] [phone] * (ABNORMAL) ~PT, ~INR - ANTI [facility]AG CLINIC (12/18/2022 2:35 PM EST) Prothrombin Time INR 3.5(H) 0.9 - 1.1 [facility] Comment:METER #: [id number] TERNATIONAL NORMALIZED RATIO (INR) REFERENCE RANGES Reference [...] 2:35 PM EST 12/18/2022 2:37 PM EST [facility] External Provider LAB BLO OD ORDERABLES Final Result Performing Organization Address [facility] Co de Phone Number [facility] [address] [place] [phone] * (ABNORMAL) PROTHROMBIN TIME WHOLE BLD POC (12/11/2022 2:35 PM EST) Protime 36.7(H) 11.1 - 13.5 sec [facility] 12/11/2022 2:35 PM EST 12/11/2022 2:36 PM EST [facility] External Provider LAB BLO OD ORDERABLES Final Result Performing Organization Address [facility] Co de Phone Number [facility] [address] [place] [phone] * (ABNORMAL) ~PT, ~INR - ANTI [facility]AG CLINIC (12/11/2022 2:35 PM EST) Prothrombin Time INR 3.1(H) 0.9 - 1.1 [facility] Comment:METER #: [id number] TERNATIONAL NORMALIZED RATIO (INR) REFERENCE RANGES Reference [...] 2:35 PM EST 12/11/2022 2:36 PM EST [facility] External Provider LAB BLO OD ORDERABLES Final Result Performing Organization Address [facility] de Phone Number [facility] [address] [place] [phone] * (ABNORMAL) PROTHROMBIN TIME WHOLE BLD POC (12/04/2022 3:39 PM EST) Protime 56.8(H) 11.1 - 13.5 sec [facility] 12/04/2022 3:39 PM EST 12/04/2022 3:40 PM EST [facility] External Provider LAB BLO OD ORDERABLES Final Result Performing Organization Address [facility] de Phone Number [facility] [address] [place] [phone] * (ABNORMAL) ~PT, ~INR - ANTI [facility]AG CLINIC (12/04/2022 3:39 PM EST) Prothrombin Time INR 4.7(H) 0.9 - 1.1 [facility] Comment:METER #: [id number] TERNATIONAL NORMALIZED RATIO (INR) REFERENCE RANGES Reference [...] 3:39 PM EST 12/04/2022 3:40 PM EST [facility] External Provider LAB BLO OD ORDERABLES Final Result Performing Organization Address [facility] de Phone Number [facility] [address] [place] [address] [phone] * (ABNORMAL) Liver Fibrosis, FibroTest-ActiTest Panel (12/04/2022 10:15 AM EST) Liver Fibrosis Score 0.58 [facility] Liver Fibrosis Stage F2 [facility] Liver Fibrosis Interpretation SEE NOTE [facility] Comment:moderate fibrosisFib ro Test Score [...] (severe fibrosis) Nec Inflam Act Score 0.41 [facility] Nec Inflam Act Grade A1-A2 [facility] Nec Inflam Act Interpretation SEE NOTE [facility] Comment:minimal activityActi Test Score (a) Metavir Score a>=0 and a<=0.17 : A0 (no activity)a>0.17 and a<=0.29 : A0-A1 (no activity)a>0.29 and a<=0.36 : A1 (minimal activity)a>0.36 and a<=0.52 : A1-A2 (minimal activity)a>0.52 and a<=0.60 : A2 (significant activity)a>0.60 and a<=0.62 : A2-A3 (significant activity)a>0.62 and a<=1.00 : A3 (severe activity) DCL-Wlhfz-5-Macroglo bulin 275 106 - 279 mg/dL [facility] FIB-Haptoglobin 120 43 - 212 mg/dL [facility] FIB-Apolipoprotein A1 171 94 - 176 mg/dL [facility] FIB-Total Bilirubin 0.8 0.2 - 1.2 mg/dL [facility] FIB-GGT 64 3 - 70 U/L [facility] FIB-ALT 53(A) 9 - 46 U/L [facility] Reference ID [id number] [facility] Footnote SEE NOTE [facility] Comment: The reliability of results [...] and C.The performance characteristics have been determined by[employer] [facility]. Ithas not been cleared or approved by the U.S. Food and DrugAdministration. Performance characteristics refer to theanalytical performance of the test.[employer], the associated logo, [employer] and all associated [employer] holloway are theregistered trademarks of [employer]. All third partymarks - (R) and (TM) - are the property of their respectiveowners. (C) [id number] [employer]. Allrights reserved.THIS TEST WAS PERFORMED AT:[facility]/[employer] [id number] [place] [address]SKHMXJOHN JERNIGAN MD,PHD,DAYDAY 12/04/2022 10:1 5 AM EST 12/04/2022 10:15 AM EST [facility] External Provider LAB BLO OD ORDERABLES Final Result Performing Organization Address [facility]/ZIP Co de Phone Number [facility] [address] [place] [phone] * Alphafetoprotein, Tumor Marker (12/04/2022 10:15 AM EST) Alpha Fetoprotein 2.5 <6.1 ng/mL [facility] Comment:This test was perfor med using the Crunchyroll Coulterchemiluminescent method. Values obtained fromdifferent assay methods cannot be usedinterchangeably. AFP levels, regardless ofvalue, should not be interpreted as absoluteevidence of the presence or absence of disease.THIS TEST WAS PERFORMED AT:[employer] [address] ([address] [id number] PALOMARES MD 12/04/2022 10:1 5 AM EST 12/04/2022 10:15 AM EST [facility] External Provider LAB BLO OD ORDERABLES Final Result Performing Organization Address City/[facility]/ZIP Co de Phone Number [facility] [address] [place] [phone] * (ABNORMAL) Hepatic Function Panel (12/04/2022 10:15 AM EST) Bilirubin, Total 1.0 0.0 - 1.0 mg/dL [facility] Bilirubin, Direct 0.3 0.0 - 0.5 mg/dL [facility] Aspartate Amino Transferase 35 5 - 37 U/L [facility] Alanine Aminotransferase 58(H) 0 - 40 U/L [facility] Total Protein 7.2 6.5 - 8.0 g/dL [facility] Albumin Level 4.2 3.5 - 5.0 g/dL [facility] Alkaline Phosphatase 63 39 - 117 U/L [facility] 12/04/2022 10:1 5 AM EST 12/04/2022 10:15 AM EST us [facility] External Provider LAB BLO OD ORDERABLES Final Result [facility] [address] [place] [address] [phone] * (ABNORMAL) CBC auto differential (12/04/2022 10:15 AM EST) White Blood Count 6.9 4.8 - 10.8 X10*3/uL [facility] Red Blood Count 4.93 4.60 - 5.80 X10*6/uL [facility] Hemoglobin 15.0 14.0 - 18.0 g/dl [facility] Hematocrit 44.5 42.0 - 52.0 % [facility] Mean Corpuscular Volume 90.3 80.0 - 98.0 fL [facility] Mean Corpuscular Hemoglobin 30.4 27.0 - 33.0 pg [facility] Mean Corpuscular HGB Conc 33.7 31.0 - 36.0 g/dl [facility] Red Cell Distribution Width 13.4 11.0 - 16.0 % [facility] Platelet Count 218 160 - 400 X10*3/uL [facility] Mean Platelet Volume 10.0 9.4 - 12.4 fL [facility] Neutrophils Percent Auto 34.1(L) 45 - 73 % [facility] Imm Gran Pct Auto 0.4 0.0 - 0.4 % [facility] Lymphocytes Percent Auto 52.2(H) 20 - 40 % [facility] Monocytes Percent Auto 9.0 2 - 11 % [facility] Eosinophils Percent Auto 3.9 0 - 4 % [facility] Basophils Percent Auto 0.4 0 - 2 % [facility] NRBC Pct Auto 0.0 0.0 - 0.2 /100WBC [facility] Neutrophils Absolute Auto 2.3 2.0 - 8.3 x10*3/uL [facility] Imm Gran Abs Auto 0.03 0.00 - 0.03 X10*3/uL [facility] Lymphocytes Absolute Auto 3.6 1.2 - 4.9 X10*3/uL [facility] Monocytes Absolute Auto 0.6 0.1 - 1.2 X10*3/uL [facility] Eosinophils Absolute Auto 0.3 0.0 - 0.4 X10*3/uL [facility] Basophils Absolute Auto 0.0 0.0 - 0.2 X10*3/uL [facility] NRBC Abs Auto 0.000 0.0 - 0.012 X10*3/uL [facility] 12/04/2022 10:1 5 AM EST 12/04/2022 10:15 AM EST [facility] External Provider LAB BLO OD ORDERABLES Final Result Performing Organization Address [facility] Co de Phone Number [facility] [address] [place] [phone] * POCT Creatinine GFR (12/04/2022 9:49 AM EST) POCT Creatinine 0.9 0.5 - 1.4 mg/dL [facility] GFR POC >60 [facility] Comment:Chronic Kidney Disea se: Estimated GFR < 60 mL/min/1.75q5Yulptj Kidney Disease: Estimated GFR < 15 mL/min/1.73m2 12/04/2022 9:49 AM EST 12/04/2022 4:06 PM EST Narrative [facility] - 12/04/2022 4:07 PM EST [id number].MONTRELLAAR [facility] Exter nal Provider LAB POINT OF CARE TEST DOCKED DEVICE ORDERABLES Final Result Performing Organization Address [facility]/ZIP Co de Phone Number [facility] [address] [place] [phone] * (ABNORMAL) PROTHROMBIN TIME WHOLE BLD POC (12/03/2022 2:54 PM EST) Protime 69.3(H) 11.1 - 13.5 sec [facility] 12/03/2022 2:54 PM EST 12/03/2022 3:30 PM EST [facility] External Provider LAB BLO OD ORDERABLES Final Result Performing Organization Address City/[facility] Co de Phone Number [facility] [address] [place] [phone] * (ABNORMAL) ~PT, ~INR - ANTI COAG CLINIC (12/03/2022 2:54 PM EST) Prothrombin Time INR 5.8(HH) 0.9 - 1.1 [facility] Comment:METER #: [id number] ctor NotifiedINTERNATIONAL NORMALIZED RATIO (INR) REFERENCE RANGES [...] 2:54 PM EST 12/03/2022 3:30 PM EST [facility] External Provider LAB BLO OD ORDERABLES Final Result Performing Organization Address [facility] Co de Phone Number [facility] [address] [place] [phone] * (ABNORMAL) PROTHROMBIN TIME WHOLE BLD POC (11/26/2022 2:46 PM EST) Protime 40.1(H) 11.1 - 13.5 sec [facility] 11/26/2022 2:46 PM EST 11/26/2022 2:47 PM EST [facility] External Provider LAB BLO OD ORDERABLES Final Result Performing Organization Address City/[facility]/ZIP Co de Phone Number [facility] [address] [place] [phone] * (ABNORMAL) ~PT, ~INR - ANTI COAG CLINIC (11/26/2022 2:46 PM EST) Prothrombin Time INR 3.3(H) 0.9 - 1.1 [facility] Comment:METER #: [id number] TERNATIONAL NORMALIZED RATIO (INR) REFERENCE RANGES Reference [...] 2:46 PM EST 11/26/2022 2:47 PM EST [facility] External Provider LAB BLO OD ORDERABLES Final Result Performing Organization Address [facility] Co de Phone Number [facility] [address] [place] [phone] * (ABNORMAL) PROTHROMBIN TIME WHOLE BLD POC (11/05/2022 3:33 PM EST) Protime 33.6(H) 11.1 - 13.5 sec [facility] 11/05/2022 3:33 PM EST 11/05/2022 3:35 PM EST [facility] External Provider LAB BLO OD ORDERABLES Final Result Performing Organization Address City/[facility]/ZIP Co de Phone Number [facility] [address] [place] [phone] * (ABNORMAL) ~PT, ~INR - ANTI COAG CLINIC (11/05/2022 3:33 PM EST) Prothrombin Time INR 2.8(H) 0.9 - 1.1 [facility] Comment:METER #: [id number] TERNATIONAL NORMALIZED RATIO (INR) REFERENCE RANGES Reference [...] 3:33 PM EST 11/05/2022 3:35 PM EST [facility] External Provider LAB BLO OD ORDERABLES Final Result Performing Organization Address City/[facility]/ZIP Co de Phone Number [facility] [address] [place] [phone] * (ABNORMAL) PROTHROMBIN TIME WHOLE BLD POC (10/29/2022 3:11 PM EST) Pathologist [facility] Protime 45.2(H) 11.1 - 13.5 sec [facility] 10/29/2022 3:11 PM EST 10/30/2022 7:55 AM EST [facility] External Provider LAB BLO OD ORDERABLES Final Result Performing Organization Address City/[facility]/ZIP Co de Phone Number [facility] [address] [place] [address] [phone] * (ABNORMAL) ~PT, ~INR - ANTI COAG CLINIC (10/29/2022 3:11 PM EST) Prothrombin Time INR 3.8(H) 0.9 - 1.1 [facility] Comment:METER #: [id number] TERNATIONAL NORMALIZED RATIO (INR) REFERENCE RANGES Reference [...] 3:11 PM EST 10/30/2022 7:55 AM EST [facility] External Provider LAB BLO OD ORDERABLES Final Result Performing Organization Address City/State/[facility] Co de Phone Number [facility] [address] [place] [phone] documented in this encounter Visit Diagnoses Diagnosis Pleural scarring- Primary Pleurisy without mention of effusion or current tuberculosis Abnormal chest CT Nonspecific (abnormal) findings on radiological and other examination of other intrathoracic organs documented in this encounter Care Teams Machine Sweeper Brush Maker Relationship Specialty Start Date End Date Sancho Yoon MD [address] [place] [address] PCP - General Internal Medicine 08/16/14 Tae Kong MD [address] [place] [address] Cardiology 07/18/25 documented as of this encounter
--- OUTSIDE RECORDS SUMMARY | 2025-09-13 09:10 | XMS_ITS | Encounter Summary ---
Author Organization [employer] Address [address] [facility] 7t [place] [address] Care Team Providers Care Check Writing Machine Operator Name Role Phone Sancho Yoon MD Primary Care Provide r Tae Kong MD Unavailable [phone] Reason for Visit * Reason Comments Med Refill Encounter Details Date Type Department Care Team ([facility] st Contact Info) Description 02/27/2025 Refill [facility] [address] [place] [address] Sancho Yoon MD [address] [place], [place] [phone] Benign prostatic hyperplasia with lower urinary tract [...] Office Visit [facility]ULT [facility] [address] [place] [address] Yi Sanchez 09/26/2025 9:45 AM EST Office Visit [facility] [address] [place] [address] 10/26/2025 2:15 PM EST Office Visit [facility] [address] [place] [address] Sancho Yoon MD [address] [place] [address] documented as of this encounter Visit Diagnoses Diagnosis Benign prostatic hyperplasia with lower urinary tract symptoms Other obstructive and reflux uropathy documented in this encounter Additional Health Concerns Assessment Noted Time PHQ-9 Depression Total Score: 0 09/29/20 24 9:48 AM EST documented as of this encounter Care Teams Check Writing Machine Operator Relationship Specialty Start Date End Date Sancho Yoon MD [address] [place] [address] PCP - General Internal Medicine 08/16/14 Tae Kong MD [address] [place] [address] Cardiology 07/18/25 documented as of this encounter
--- OUTSIDE RECORDS SUMMARY | 2025-09-13 09:10 | XMS_ITS | Encounter Summary ---
Author Organization [employer] Address [address] [facility] 7t [place] [address] Care Team Providers Care Ticket Clerk Name Role Phone Sancho Yoon MD Primary Care Provide r Tae Kong MD Unavailable [phone] Reason for Visit * Reason Onset Date Comments Appointment Request 03/22/2025 Encounter Details Date Type Department Care Team ([facility] st Contact Info) Description 03/22/2025 Telephone [facility] [address] [place] [address] Sancho Yoon MD [address] [place] [address] Appointment Request Social History Tobacco Use Types [...] reschedule appointment from 03/07 Please contact pt [phone] documented in this encounter Plan of Treatment Upcoming Encounters Date Type Department Care Team (Late st Contact Info) Description 09/18/2025 8:00 AM EST Office Visit [facility]ULT [facility] [address] [place] [address] Yi Sanchez 09/26/2025 9:45 AM EST Office Visit [facility] [address] [place] [phone] 10/26/2025 2:15 PM EST Office Visit [facility] [address] [place] [address] Sancho Yoon MD [address] [place] [address] documented as of this encounter Visit Diagnoses Not on filedocumented in this encounter Additional Health Concerns Assessment Noted Time PHQ-9 Depression Total Score: 0 09/29/20 24 9:48 AM EST documented as of this encounter Care Teams Ticket Clerk Relationship Specialty Start Date End Date Sancho Yoon MD [address] [place] [address] PCP - General Internal Medicine 08/16/14 Tae Kong MD [address] [place] [address] Cardiology 07/18/25 documented as of this encounter
--- OUTSIDE RECORDS SUMMARY | 2025-09-13 09:11 | XMS_ITS | Encounter Summary ---
Author Organization [employer] Address [address] [facility] 7t [place] [address] Care Team Providers Care Environmental Projects Advisor Name Role Phone Sancho Yoon MD Primary Care Provide r Tae Kong MD Unavailable [phone] Reason for Visit * Reason Onset Date Comments Med Refill 08/22/2024 Encounter Details Date Type Department Care Team ([facility] st Contact Info) Description 08/22/2024 Telephone [facility] [address] [place] [address] Sancho Yoon MD [address] [place] [address] Med Refill Social History Tobacco Use Types [...] immediate release tablet To be sent to: [facility] - [place], [place] - [address] [place] [address] documented in this encounter Plan of Treatment Upcoming Encounters Date Type Department Care Team (Late st Contact Info) Description 09/18/2025 8:00 AM EST Office Visit [facility] ADULT DENTAL [address] [place] [address] Yi Sanchez 09/26/2025 9:45 AM EST Office Visit [facility] MED[facility] [address] [place] [address] 10/26/2025 2:15 PM EST Office Visit [facility] [address] [place] [address] Sancho Yoon MD [address] [place] [address] documented as of this encounter Visit Diagnoses Not on filedocumented in this encounter Additional Health Concerns Assessment Noted Time PHQ-9 Depression Total Score: 3 03/23/20 23 1:07 PM EDT documented as of this encounter Care Teams Environmental Projects Advisor Relationship Specialty Start Date End Date Sancho Yoon MD [address] [place] [address] PCP - General Internal Medicine 08/16/14 Tae Kong MD [address] [place] [address] Cardiology 07/18/25 documented as of this encounter
--- OUTSIDE RECORDS SUMMARY | 2025-09-13 09:11 | XMS_ITS | Encounter Summary ---
Author Organization [employer] Address [address] [facility] 7t [place] [address] Care Team Providers Care Exerciser Horse Name Role Phone Sancho Yoon MD Primary Care Provide r Tae Kong MD Unavailable [phone] Reason for Visit * Reason Comments Med Refill Encounter Details Date Type Department Care Team ([facility] st Contact Info) Description 07/02/2024 Refill [facility] [address] [place] [address] Sancho Yoon MD [address] [place], [place] [phone] Mild intermittent asthma without complication Social History [...] Description 09/18/2025 8:00 AM EST Office Visit [facility] [address] [place] [address] iY Sanchez 09/26/2025 9:45 AM EST Office Visit [facility] [address] [place] [phone] 10/26/2025 2:15 PM EST Office Visit [facility] [address] [place] [address] Sancho Yoon MD [address] [place] [address] documented as of this encounter Visit Diagnoses Diagnosis Mild intermittent asthma without complication documented in this encounter Additional Health Concerns Assessment Noted Time PHQ-9 Depression Total Score: 3 03/23/20 23 1:07 PM EDT documented as of this encounter Care Teams Exerciser Horse Relationship Specialty Start Date End Date Sancho Yoon MD [address] [place] [address] PCP - General Internal Medicine 08/16/14 Tae Kong MD [address] [place] [address] Cardiology 07/18/25 documented as of this encounter
--- OUTSIDE RECORDS SUMMARY | 2025-09-13 09:11 | XMS_ITS | Encounter Summary ---
Author Organization [employer] Address 75 [facility] 7t [place] [address] Care Team Providers Care Graphic Design Manager Name Role Phone Sancho Yoon MD Primary Care Provide r Tae Kong MD Unavailable [phone] Reason for Visit * Reason Onset Date Comments Med Refill 04/19/2024 Encounter Details Date Type Department Care Team ([facility] st Contact Info) Description 04/19/2024 Telephone [facility] MEDICINE 230 [place] [address] Sancho Yoon MD 230 [place] [address] Med Refill Social History Tobacco Use Types [...] immediate release tablet To be sent to: [facility] documented in this encounter Plan of Treatment Upcoming Encounters Date Type Department Care Team (Late st Contact Info) Description 09/18/2025 8:00 AM EST Office Visit [facility] ADULT DENTAL [address] [place] [address] Yi Sanchez 09/26/2025 9:45 AM EST Office Visit [facility] MEDICINE [address] [place] [address] 10/26/2025 2:15 PM EST Office Visit [facility] MEDICINE [address] [place] [address] Sancho Yoon MD 230 [place] [address] documented as of this encounter Visit Diagnoses Not on filedocumented in this encounter Additional Health Concerns Assessment Noted Time PHQ-9 Depression Total Score: 3 03/23/20 23 1:07 PM EDT documented as of this encounter Care Teams Graphic Design Manager Relationship Specialty Start Date End Date Sancho Yoon MD [address] [place] [address] PCP - General Internal Medicine 08/16/14 Tae Kong MD [address] [place] [address] Cardiology 07/18/25 documented as of this encounter
--- OUTSIDE RECORDS SUMMARY | 2025-09-13 09:11 | XMS_ITS | Encounter Summary ---
Author Organization [employer] Address 75 [facility] 7t [place] [address] Care Team Providers Care Shoe Folder Name Role Phone Sancho Yoon MD Primary Care Provide r Tae Kong MD Unavailable [phone] Reason for Visit * Reason Onset Date Comments Appointment Request 04/05/2024 Encounter Details Date Type Department Care Team ([facility] st Contact Info) Description 04/05/2024 Telephone [facility] MEDICINE 230 [place] [address] Sancho Yoon MD 230 [place] [address] Appointment Request Social History Tobacco Use Types [...] to know if there is any upcoming [employer] visits to be scheduled. Please contact pt at [phone]. documented in this encounter Plan of Treatment Upcoming Encounters Date Type Department Care Team (Late st Contact Info) Description 09/18/2025 8:00 AM EST Office Visit [facility] ADULT DENTAL [address] [place] [address] Yi Sanchez 09/26/2025 9:45 AM EST Office Visit [facility] MEDICINE [address] [place] [address] 10/26/2025 2:15 PM EST Office Visit [facility] MEDICINE [address] [place] [address] Sancho Yoon MD [address] [place] [address] documented as of this encounter Visit Diagnoses Not on filedocumented in this encounter Additional Health Concerns Assessment Noted Time PHQ-9 Depression Total Score: 3 03/23/20 23 1:07 PM EDT documented as of this encounter Care Teams Shoe Folder Relationship Specialty Start Date End Date Sancho Yoon MD [address] [place] [address] PCP - General Internal Medicine 08/16/14 Tae Kong MD 6 [place] [address] Cardiology 07/18/25 documented as of this encounter
--- OUTSIDE RECORDS SUMMARY | 2025-09-13 09:11 | XMS_ITS | Encounter Summary ---
Author Organization [employer] Address 75 [facility] 7t [place] [address] Care Team Providers Care Filler In Name Role Phone Sancho Yoon MD Primary Care Provide r Tae Kong MD Unavailable [phone] Reason for Visit * Reason Comments Med Refill Encounter Details Date Type Department Care Team ([facility] st Contact Info) Description 05/02/2024 Refill [facility] [address] [place], [place] [phone] Sancho Yoon MD 230 [place] [address] Other chronic pain Social History Tobacco Use [...] Description 09/18/2025 8:00 AM EST Office Visit [facility] ADULT D[facility]AL [address] [place] [address] Yi Sanchez 09/26/2025 9:45 AM EST Office Visit [facility] MED[facility]INE [address] [place] [address] 10/26/2025 2:15 PM EST Office Visit [facility] MED[facility]INE [address] [place] [address] Sancho Yoon MD [address] [place] [address] documented as of this encounter Visit Diagnoses Diagnosis Other chronic pain documented in this encounter Additional Health Concerns Assessment Noted Time PHQ-9 Depression Total Score: 3 03/23/20 23 1:07 PM EDT documented as of this encounter Care Teams Filler In Relationship Specialty Start Date End Date Sancho Yoon MD [address] [place] [address] PCP - General Internal Medicine 08/16/14 Tae Kong MD [address] [place] [address] Cardiology 07/18/25 documented as of this encounter
--- OUTSIDE RECORDS SUMMARY | 2025-09-13 09:11 | XMS_ITS | Encounter Summary ---
Author Organization [email or web address] Address 75 [facility] 7t [place] [address] Care Team Providers Care Freight Associate Name Role Phone Sancho Yoon MD Primary Care Provide r Tae Kong MD Unavailable [phone] Reason for Visit * Reason Onset Date Comments Med Refill 07/25/2024 Encounter Details Date Type Department Care Team (Late st Contact Info) Description 07/25/2024 Telephone [facility] MEDICINE 230 [place] [address] Sancho Yoon MD [address] [place] [address] Med Refill Social History Tobacco Use Types [...] immediate release tablet To be sent to: [facility] - [place], [place] - [address] [place] [address] documented in this encounter Plan of Treatment Upcoming Encounters Date Type Department Care Team (Late st Contact Info) Description 09/18/2025 8:00 AM EST Office Visit [facility] ADULT DENTAL [address] [place] [address] Yi Sanchez 09/26/2025 9:45 AM EST Office Visit [facility] MEDICINE [address] [place] [address] 10/26/2025 2:15 PM EST Office Visit [facility] MEDICINE [address] [place] [address] Sancho Yoon MD [address] [place] [address] documented as of this encounter Visit Diagnoses Not on filedocumented in this encounter Additional Health Concerns Assessment Noted Time PHQ-9 Depression Total Score: 3 03/23/20 23 1:07 PM EDT documented as of this encounter Care Teams Freight Associate Relationship Specialty Start Date End Date Sancho Yoon MD [address] [place] [address] PCP - General Internal Medicine 08/16/14 Tae Kong MD [address] [place] [address] Cardiology 07/18/25 documented as of this encounter
--- OUTSIDE RECORDS SUMMARY | 2025-09-13 09:11 | XMS_ITS | Encounter Summary ---
Author Organization [employer] Address 75 [facility] 7t [place] [address] Care Team Providers Care Business Services Assistant Name Role Phone Sancho Yoon MD Primary Care Provide r Tae Kong MD Unavailable [phone] Encounter Details Date Type Department Care Team (Late Contact Info) Description 07/28/2023 Abstract [facility] ADULT DENTAL [address] [place] [address] Mildred Duran 230 [place] [address] Social History Tobacco Use Types Packs/Day Years [...] Description 09/18/2025 8:00 AM EST Office Visit [facility] ADULT DENTAL [address] [place] [address] Yi Sanchez 09/26/2025 9:45 AM EST Office Visit [facility] MEDICINE [address] [place] [address] 10/26/2025 2:15 PM EST Office Visit [facility] MEDICINE 230 [place] [address] Sancho Yoon MD 230 [place] [address] documented as of this encounter Visit Diagnoses Not on filedocumented in this encounter Additional Health Concerns Assessment Noted Time PHQ-9 Depression Total Score: 3 03/23/20 23 1:07 PM EDT documented as of this encounter Care Teams Business Services Assistant Relationship Specialty Start Date End Date Sancho Yoon MD 230 [place] [address] PCP - General Internal Medicine 08/16/14 Tae Kong MD [address] [place] [address] Cardiology 07/18/25 documented as of this encounter
--- OUTSIDE RECORDS SUMMARY | 2025-09-13 09:11 | XMS_ITS | Encounter Summary ---
Author Organization [employer] Address 75 [facility] 7t [place] [address] Care Team Providers Care Network/Telecom Engineer Name Role Phone Sancho Yoon MD Primary Care Provide r Tae Kong MD Unavailable [phone] Reason for Visit * Reason Onset Date Comments New Med Request 09/01/2023 Encounter Details Date Type Department Care Team ([facility] st Contact Info) Description 09/01/2023 Telephone [facility] MEDICINE 230 [place] [address] Sancho Yoon MD [address] [place] [address] New Med Request Social History Tobacco Use [...] 09/08/2023 8:54 AM EDT Received call from [facility] regarding INR, spoke to Yi. [...] procedure on 09/08/2023. Any questions contact pt. Italian speaker documented in this encounter Plan of Treatment Upcoming Encounters Date Type Department Care Team (Late st Contact Info) Description 09/18/2025 8:00 AM EST Office Visit [facility] ADULT DENTAL [address] [place] [address] Yi Sanchez 09/26/2025 9:45 AM EST Office Visit [facility] MEDICINE [address] [place] [address] 10/26/2025 2:15 PM EST Office Visit [facility] MEDICINE [address] [place] [address] Sancho Yoon MD [address] [place] [address] documented as of this encounter Visit Diagnoses Not on filedocumented in this encounter Additional Health Concerns Assessment Noted Time PHQ-9 Depression Total Score: 3 03/23/20 23 1:07 PM EDT documented as of this encounter Care Teams Network/Telecom Engineer Relationship Specialty Start Date End [place] [address] PCP - General Internal Medicine 08/16/14 Tae Kong MD [address] [place] [address] Cardiology 07/18/25 documented as of this encounter
--- OUTSIDE RECORDS SUMMARY | 2025-09-13 09:11 | XMS_ITS | Encounter Summary ---
Author Organization [employer] Address [address] [facility] [address] 7t [place] [address] Care Team Providers Care Probation And Patrol Agent Name Role Phone Sancho Yoon MD Primary Care Provide r Tae Kong MD Unavailable [phone] Reason for Visit * Reason Comments Med Refill Encounter Details Date Type Department Care Team ([facility] Contact Info) Description 04/18/2025 Refill [facility] 230 [place] [address] Miesha Schwartz DO 230 [place] [address] Social History Tobacco Use Types Packs/Day Years [...] Description 09/18/2025 8:00 AM EST Office Visit [facility] ADULT DENTAL [address] [place] [address] Yi Sanchez 09/26/2025 9:45 AM EST Office Visit [facility] MEDICINE [address] [place] [address] 10/26/2025 2:15 PM EST Office Visit [facility] MEDICINE [address] [place] [address] Sancho Yoon MD [address] [place] [address] documented as of this encounter Visit Diagnoses Not on filedocumented in this encounter Additional Health Concerns Assessment Noted Time PHQ-9 Depression Total Score: 0 09/29/20 24 9:48 AM EST documented as of this encounter Care Teams Probation And Patrol Agent Relationship Specialty Start Date End Date Sancho Yoon MD [address] [place] [address] PCP - General Internal Medicine 08/16/14 Tae Kong MD [address] [place] [address] Cardiology 07/18/25 documented as of this encounter
--- OUTSIDE RECORDS SUMMARY | 2025-09-13 09:11 | XMS_ITS | Encounter Summary ---
Author Organization [employer] Address 75 [facility] 7t [place] [address] Care Team Providers Care Director Education Name Role Phone Sancho Yoon MD Primary Care Provide r Tae Kong MD Unavailable [phone] Reason for Visit * Reason Onset Date Comments Med Refill 06/27/2024 Encounter Details Date Type Department Care Team ([facility] st Contact Info) Description 06/27/2024 Telephone [facility] MEDICINE 230 [place] [address] Sancho Yoon MD [address] [place] [address] Med Refill Social History Tobacco Use Types [...] immediate release tablet To be sent to: [facility] - [place], [place] - [address] [place] [address] documented in this encounter Plan of Treatment Upcoming Encounters Date Type Department Care Team ([facility] st Contact Info) Description 09/18/2025 8:00 AM EST Office Visit [facility] ADULT DENTAL [address] [place] [address] Yi Sanchez 09/26/2025 9:45 AM EST Office Visit [facility] MEDICINE [address] [place] [address] 10/26/2025 2:15 PM EST Office Visit [facility] MEDICINE [address] [place] [address] Sancho Yoon MD [address] [place] [address] documented as of this encounter Visit Diagnoses Not on filedocumented in this encounter Additional Health Concerns Assessment Noted Time PHQ-9 Depression Total Score: 3 03/23/20 23 1:07 PM EDT documented as of this encounter Care Teams Director Education Relationship Specialty Start Date End Date Sancho Yoon MD [address] [place] [address] PCP - General Internal Medicine 08/16/14 Tae Kong MD [address] [place] [address] Cardiology 07/18/25 documented as of this encounter
--- OUTSIDE RECORDS SUMMARY | 2025-09-13 09:11 | XMS_ITS | Encounter Summary ---
Author Organization [employer] Address 75 [facility] 7t [place] [address] Care Team Providers Care Air Conditioning Installer Name Role Phone Sancho Yoon MD Primary Care Provide r Tae Kong MD Unavailable [phone] Reason for Visit * Reason Comments Med Refill Encounter Details Date Type Department Care Team ([facility] st Contact Info) Description 08/19/2023 Refill [facility] MEDICINE 230 [place] [address] Sancho Yoon MD 230 [place] [address] Social History Tobacco Use Types Packs/Day Years [...] Description 09/18/2025 8:00 AM EST Office Visit [facility] ADULT DENTAL [address] [place] [address] Yi Sanchez 09/26/2025 9:45 AM EST Office Visit [facility] MEDICINE [address] [place] [address] 10/26/2025 2:15 PM EST Office Visit [facility] MED[facility] [address] [place] [address] Sancho Yoon MD [address] [place] [address] documented as of this encounter Visit Diagnoses Not on filedocumented in this encounter Additional Health Concerns Assessment Noted Time PHQ-9 Depression Total Score: 3 03/23/20 23 1:07 PM EDT documented as of this encounter Care Teams Air Conditioning Installer Relationship Specialty Start Date End Date Sancho Yoon MD [address] [place] [address] PCP - General Internal Medicine 08/16/14 Tae Kong MD [address] [place] [address] Cardiology 07/18/25 documented as of this encounter
--- OUTSIDE RECORDS SUMMARY | 2025-09-13 09:12 | XMS_ITS | Encounter Summary ---
Author Organization [employer] Address [address] [facility] [address] 7t [place] [address] Care Team Providers Care Head Charger Name Role Phone Sancho Yoon MD Primary Care Provide r Tae Kong MD Unavailable [phone] Reason for Visit * Reason Comments Med Refill Encounter Details Date Type Department Care Team ([facility] st Contact Info) Description 01/24/2024 Refill [facility] 230 [place] [address] Sancho Yoon MD 230 [place], [place] [phone] Social History Tobacco Use Types Packs/Day Years [...] Description 09/18/2025 8:00 AM EST Office Visit [facility] ADULT DENTAL [address] [place] [address] Yi Sanchez 09/26/2025 9:45 AM EST Office Visit [facility] MEDICINE [address] [place] [address] 10/26/2025 2:15 PM EST Office Visit [facility] MEDICINE [address] [place] [address] Sancho Yoon MD [address] [place] [address] documented as of this encounter Visit Diagnoses Not on filedocumented in this encounter Additional Health Concerns Assessment Noted Time PHQ-9 Depression Total Score: 3 03/23/20 23 1:07 PM EDT documented as of this encounter Care Teams Head Charger Relationship Specialty Start Date End Date Sancho Yoon MD [address] [place] [address] PCP - General Internal Medicine 08/16/14 Tae Kong MD [address] [place] [address] Cardiology 07/18/25 documented as of this encounter
--- OUTSIDE RECORDS SUMMARY | 2025-09-13 09:12 | XMS_ITS | Clinical Summary ---
Author Organization [employer] Address [address] [facility] [address] [place] [address] Care Team Providers Care Photographic Restorer Name Role Phone Sancho Yoon MD Primary Care Provide r Tae Kong MD Unavailable [phone] Allergies No known active allergies Medications * This document contains information received from the source organization and may not represent a complete record from that organization. hydrocortisone (Anusol-HC) 2.5 % rectal cream Apply to affected area BID PRN 28 g 3 024 Active Ventolin HFA 108 (90 Base) MCG/ACT inhaler INHALE 2 PUFFS BY MOUTH EVERY 4 HOURS NEEDED FOR WHEEZING OR SHORTNESS OF BREATH 18 g 1 024 Active acetaminophen (Tylenol 8 Hour) 650 MG ER tablet TAKE 1 TABLET BY MOUTH EVERY 8 HOURS NEEDED FOR MILD PAIN. DO NOT BREAK, CRUSH, DISSOLVE OR CHEW. 30 tablet 1 025 Active tamsulosin (Flomax) 0.4 MG 24 hr capsuleIndications:Darius ign prostatic hyperplasia with nocturia Take 1 capsule (0.4 mg) by mouth at bedtime. 30 capsule 3 025 Active apixaban (Eliquis) 5 MG tablet Take 1 tablet (5 mg) by mouth 2 times daily. 60 tablet 2 025 06/08 Active rosuvastatin (Crestor) 5 MG tabletIndications:Pure hypercholesterolemia TAKE 1 TABLET BY MOUTH AT BEDTIME 90 tablet 025 Active amLODIPine (Norvasc) 5 MG tablet Take 1 tablet (5 mg) by mouth Once per day. 30 tablet 2 025 Active oxyCODONE (Roxicodone) 5 MG immediate release tabletIndications:Scale Technician linnea right-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 Do not start before September 05, 2025. 84 tablet 025 10/03 Active naloxone (Narcan) 4 mg/0.1 mL nasal spray Administer 1 spray (4 mg) into affected nostril(s) if needed for opioid reversal. 2 each 1 Active lisinopril 10 MG tabletIndications:Esse ntial hypertension TAKE 1 TABLET BY MOUTH EVERY MORNING 90 tablet 1 025 Active naloxone (Narcan) 4 mg/0.1 mL nasal spray Administer 0.1 mL into affected nostril(s). 021 09/04 Discontinued( Reorder (will not trigger notification to Pharmacy)) Arnuity Ellipta 100 MCG/ACT inhalerIndications:Mil d intermittent asthma without complication INHALE 1 PUFF BY MOUTH EVERY DAY AT THE SAME TIME. RINSE MOUTH AFTER USING.. 30 each 5 024 08/18 Discontinued lisinopril 10 MG tabletIndications:Esse ntial hypertension TAKE 1 TABLET BY MOUTH EVERY DAY IN THE MORNING 90 tablet 1 025 09/08 Discontinued amLODIPine (Norvasc) 5 MG tablet Take 1 tablet by mouth Once per day. 025 08/23 Discontinued( Reorder (will not trigger notification to Pharmacy)) oxyCODONE (Roxicodone) 5 MG immediate release tabletIndications:Scale Technician linnea right-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 84 tablet 025 09/04 Discontinued( Reorder (will not trigger notification to Pharmacy)) Active Problems Problem Noted Date Diagnosed Date Right leg DVT (CMS/HCC) 06/08/2025 Acute pulmonary embolism (CMS/HCC) 06/08/2025 Assessment & Plan (08/01/2025 1:35 PM [...] does have already f up apt w rug hooker Dr Beck in 4 days on 06/12/2025-encouraged pt to go to apt to complete eval for hypercoagulable state if not done before ,seems per ED note pt may have not been fully compliant w warfarin however mentions that INR was therapeutic at 2.2 -order today TTE to eval cardiac strain and if relevant abnormalities will rec pt to see passenger vessel chef sooner ,states last seen 03/2025 -in regards [...] sided low back pain w/ sciatica Last HEAVY MACHINERY OPERATOR Agreement: 05/23/25 Tier 3 (HEAVY MACHINERY OPERATOR Q4-6months), reviewed by PCP Dec 2024 Assessment [...] if needed can be considered test . [facility] health care 03/23/2023 Assessment & Plan (08/01/2025 1:35 [...] IVC filter and on warfarin -f at [facility] -from records last INR 03/14/2023 [...] (10/23/2022 9:16 AM EST): Dx initially in [place], on exam ? small inguinal hernia pt [...] since 2000. He was evaluated extensively by satellite specialist Dr. Beck who did a hypercoagulable [...] since 2000. He was evaluated extensively by satellite specialist Dr. Beck who did a hypercoagulable [...] since 2000. He was evaluated extensively by satellite specialist Dr. Beck who did a hypercoagulable [...] since 2000. He was evaluated extensively by satellite specialist Dr. Beck who did a hypercoagulable work up that was unrevealing, although she believes pt has a hypercoagulable state and needs to be on coumadin life long. Pt continues to follow at the coumadin clinic Last INR was therapeutic. 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 On coumadin since 2000. Evaluated extensively by satellite specialist Dr. Beck who did a hypercoagulable [...] -UTOX as expected. Pill count discrepancy. See trailhead maintenance worker. Assessment & Plan (03/30/2025 12:09 PM EDT): [...] contract with us. Pt was referred to [facility] Pain management s/p epidural injection. [...] contract with us. Pt was referred to [facility] Pain management s/p epidural injection. [...] contract with us. Pt was referred to [facility] Pain management and is already [...] partial results. PT was [facility] for [facility] and conservative treatment modalities. He [...] partial results. PT was referred to [facility] for evaluation and conservative treatment modalities. He [...] for a HDF He was admitted to [facility] from 07/15-07/17 for YUKI, orthostatic [...] fine, no longer feels dizzy Fracture, maxillary ([facility]) 07/21/2023 01/26/2025 Assessment & Plan (07/30/2023 4:02 PM EDT): Ct done at [facility] 07/15/2023 showed: fracture of anterior wall of left maxillary sinus and left side of nasal bone with minimal displacement Pt was referred to the maxillofacial surgeon. I contacted them today they told me they had misfiled his referral, the guest experience representative of the office told me the [...] organization. Date Type Department Care Team Description 09/06/2025 Refill [facility] [address] [place] [address] Sancho Yoon MD Essential hypertension 09/04/2025 Refill [facility] [address] [place] [address] 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 RN Chronic right-sided low back pain with right-sided sciatica 09/04/2025 Telephone [facility] [address] [place] [address] Sancho Yoon MD Med Refill 08/23/2025 Refill [facility] [address] [place] [address] Sancho Yoon MD 08/18/2025 11:20 AM EDT Office Visit [facility] [address] [place] [address] Otilio Del Toro MD Cough in adult patient 08/18/2025 Travel 08/08/2025 Refill [facility] [address] [place] [address] Miesha Schwartz, Chronic right-sided low back pain with right-sided sciatica 08/07/2025 Refill [facility] [address] [place] [address] Miesha Schwartz, Chronic right-sided low back pain with right-sided sciatica 08/04/2025 Telephone [facility] [address] [place] [address] Sancho Yoon MD Med Refill 08/02/2025 Orders Only [facility] [address] [place] [address] Sancho Yoon MD 08/01/2025 1:15 PM EDT Office Visit [address] [address] Sancho Yoon MD Essential hypertension (Primary Dx); Other acute pulmonary embolism, unspecified whether acute cor pulmonale present ([facility]/HCC); Preventative health care; Chronic anticoagulation; Pure hypercholesterolemia 08/01/2025 Travel 07/31/[address] [address] Sancho Yoon MD chart prep 07/24/2025 Patient Outreach [address] [address] Sancho Yoon MD Pre-visit Planning (SDOH Screening negative and Tobacco screening negative) 07/18/[address] [address] Huong Hurtado, RN Results; Interoffice Coordination 07/07/2025 Refill [facility] [address] [place] [address] 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 RN Chronic right-sided low back pain with right-sided sciatica 07/07/2025 Telephone [facility] [address] [place] [address] Sancho Yoon MD 07/04/2025 Refill [facility] [address] [place] [address] Kim Wise ANP Pure hypercholesterolemia 06/27/2025 9:45 AM EDT Office Visit [address] [address] Janis Cm FNP Chronic right-sided low back pain with right-sided sciatica (Primary Dx); Long-term current use of opiate analgesic 06/27/2025 Travel 06/13/2025 Orders Only [facility] External Provider, [facility] 06/13/2025 Refill [facility] [address] [place] [address] 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 RN Chronic right-sided low back pain with right-sided sciatica 06/13/2025 Telephone [facility] [address] [place] [address] Sancho Yoon MD Med Refill from Last 3 Months Immunizations Immunization Administration Dates Next Due Hep A, Adult 06/03/2002 Hep B, adult 09/26/2009,07/25/2009 INFLUENZA INJECTABLE QUADRIV ALANT CCIIV4 MDCK Multi-dose vial 09/14/2019 Influenza High-dose Quadriva lent Preservative Free 09/10/2023,07/30/2023,08/27/2021,09/18 Influenza injectable quadriv alent IIV4 with preservative 09/14/2018,10/17/2016,08/29/2015 Influenza injectable quadriv alent preservative free 08/22/2022,09/14/2019,09/04/2017 Influenza, High Dose Seasona l, Preservative Free 08/31/2025,09/29/2024 Influenza, IIV3, injectable 10/29/2022,1 ,08/18/2017,09/04,07/15/2011 Influenza, Split (incl. brett fied surface antigen) 08/17/2013,09/02/2012 Influenza, seasonal, injecta ble, preservative free 08/09/2016 Moderna Covid-19 Vaccine 12+ 03/04/2022, 10/02/2021,02/13/2021,01/16 Pfizer Covid-19 Vaccine 12+ 09/29/2024, 3 Pfizer Covid-19 Vaccine 12+ Bivalent 08/22/2022 Pneumococcal [...] Sign Reading Time Taken Comments Blood Pressure 141/86 08/18/2025 11:18 AM EDT Pulse 75 08/18/2025 11:18 AM EDT Temperature 36.8 C (98.2 F) 08/18/2025 11:18 AM EDT Respiratory Rate 18 08/18/2025 11:18 AM EDT Oxygen Saturation 97% 08/18/2025 11:18 AM EDT Inhaled Oxygen Concentration - - Weight 99.8 kg (220 lb) 08/18/2025 11:18 AM EDT Height 182.9 cm (6') 08/01/2025 1:13 PM EDT Body Mass Index 29.84 08/01/2025 1:13 PM EDT Plan of Treatment Upcoming Encounters Date Type Department Care Team (Late st Contact Info) Description 09/18/2025 8:00 AM EST Office Visit [facility] [address] [place] [address] Yi Sanchez 09/26/2025 9:45 AM EST Office Visit [facility] [address] [place] [address] 10/26/2025 2:15 PM EST Office Visit [facility] [address] [place] [address] Sancho Yoon MD [address] [place] [address] Health Maintenance Due Date Last Done Comments CT Colonography 1955 FIT DNA/Cologuard 1955 FIT 1955 FOBT 1955 Sigmoidoscopy 1955 Hepatitis A Vaccines (2 of 2 - Risk 2-dose series) 12/04/2002 06/03/2002 Hepatitis B Vaccines (3 of 3 - Risk 3-dose series) 01/22/2010 09/26/2009, 07/25/2009 COVID-19 Vaccine ( season) 2025 09/29/2024, 09/10/2023, 08/22/2022, Additional history exists Dental X-Ray: Bitewings 09/08/2025 09/07/20 24, 07/22/2023, 07/04/2022 Dental Oral Exam 09/15/2025 03/15/2025, , 02/02/2024, Additional history exists Dental Prophylaxis 09/15/2025 03/15/2025, 1 , 02/02/2024, Additional history exists Alcohol/Substance Use Screening 09/29/2025 09/29/2024 Depression Screening 09/29/2025 09/29/2024, 09/29/20 Dental X-Ray: Full Mouth 07/23/2026 07/22/2023, 10/16 SDOH Screening 07/24/2026 07/24/2025 Tobacco Screening 08/18/2026 08/18/2025 Colonoscopy 02/17/2027 02/17/2022 Colorectal Cancer Screening 02/17/2027 Lipid Panel 08/02/2030 08/02/2025, 09/17, 06/24/2022, Additional history exists DTaP/Tdap/Td Vaccines (4 - Td or Tdap) 03/12/2034 03/12/2024, 04/02/2021, 05/11/2018, Additional history exists Zoster Vaccines Completed 10/16/2020, 07/18, 07/05/2015 Pneumococcal Vaccine: 50+ Years Completed 03/23/2023, 05/11/2018, 08/25/2012 Influenza Vaccine Completed 08/31/2025, , 09/10/2023, Additional history exists RSV Patients and Patients Aged 60 years or older Completed 08/31/2025 HIB Vaccines Aged Out No longer eligi [...] INFLUENZA B (ID NOW RAPID MOLECULAR) Routine 08/18/2025 11:32 AM EDT Cough in adult patient POCT INFLUENZA A (ID NOW RAPID MOLECULAR) Routine 08/18/2025 11:32 AM EDT Cough in adult patient POCT RAPID COVID ANTIGEN Routine 08/18/2025 11:22 AM EDT Cough in adult patient URIC ACID Routine 08/02/2025 8:56 AM EDT [...] WITH ELASTOGRAPHY Routine 06/13/2025 10:30 AM EDT PROPHYLAXIS - ADULT Routine 03/15/2025 [...] Recently Relevant to Health Maintenance Results * Influenza B (ID NOW Rapid Molecular) (08/18/2025 11:32 AM EDT) Influenza B Negative Negative, Indeterminate [facility] Swab 08/18/2025 11:3 2 AM EDT us Otilio Del Toro MD POINT OF CARE TEST ENTER/EDIT OR DERABLES Final Result [facility] [address] [place] [phone] * Influenza A (ID NOW Rapid Molecular) (08/18/2025 11:32 AM EDT) [facility] Influenza A Negative Negative, Indeterminate [facility] Swab 08/18/2025 11:3 2 AM EDT Otilio Del Toro MD POINT OF CARE TEST ENTER/EDIT OR DERABLES Final Result [facility] [address] [place] [address] [phone] * POCT Rapid COVID Ag (08/18/2025 11:22 AM EDT) [facility] Rapid COVID Ag Negative Swab 08/18/2025 11:2 2 AM EDT Otilio Del Toro MD POINT OF CARE TEST ENTER/EDIT OR DERABLES Final Result * PSA, Screen (08/02/2025 8:56 AM EDT) [facility] PSA, Total 2.01 <0.05 - 4.0 ng/mL [facility] Comment:PSA methodology: Magno Lackey i ChemiluminescentMicroparticle Immunoassay (CMIA) Blood Venous blood specimen / Unknown 08/02/2025 8:56 AM EDT 08/02/2025 8:56 AM EDT Sancho Mayberry MD LAB BLOOD ORDERABLES Final Result Performing Organization Address City/[facility]/ZIP Co de Phone Number [facility] [address] [place] [address] [phone] * (ABNORMAL) CBC auto differential (08/02/2025 8:56 AM EDT) [facility] White Blood Count 4.9 4.8 - 10.8 X10*3/uL [facility] Red Blood Count 4.51(L) 4.60 - 5.80 X10*6/uL [facility] Hemoglobin 13.8(L) 14.0 - 18.0 g/dl [facility] Hematocrit 40.9(L) 42.0 - 52.0 % [facility] Mean Corpuscular Volume 90.7 80.0 - 98.0 fL [facility] Mean Corpuscular Hemoglobin 30.6 27.0 - 33.0 pg [facility] Mean Corpuscular HGB Conc 33.7 31.0 - 36.0 g/dl [facility] Red Cell Distribution Width 13.2 11.0 - 16.0 % [facility] Platelet Count 214 160 - 400 X10*3/uL [facility] Mean Platelet Volume 10.2 9.4 - 12.4 fL [facility] Neutrophils Percent Auto 35.2(L) 45 - 73 % [facility] Imm Gran Pct Auto 0.2 0.0 - 0.4 % [facility] Lymphocytes Percent Auto 49.6(H) 20 - 40 % [facility] Monocytes Percent Auto 9.3 2 - 11 % [facility] Eosinophils Percent Auto 5.1(H) 0 - 4 % [facility] Basophils Percent Auto 0.6 0 - 2 % [facility] NRBC Pct Auto 0.0 0.0 - 0.2 /100WBC [facility] Neutrophils Absolute Auto 1.7(L) 2.0 - 8.3 x10*3/uL [facility] Imm Gran Abs Auto 0.01 0.00 - 0.03 X10*3/uL [facility] Lymphocytes Absolute Auto 2.4 1.2 - 4.9 X10*3/uL [facility] Monocytes Absolute Auto 0.5 0.1 - 1.2 X10*3/uL [facility] Eosinophils Absolute Auto 0.3 0.0 - 0.4 X10*3/uL [facility] Basophils Absolute Auto 0.0 0.0 - 0.2 X10*3/uL [facility] NRBC Abs Auto 0.000 0.0 - 0.012 X10*3/uL [facility] 08/02/2025 8:56 AM EDT 08/02/2025 8:56 AM EDT Sancho Mayberry MD LAB BLOOD ORDERABLES Final Result Performing Organization Address City/[facility]/ZIP Co de Phone Number [facility] [address] [place] [phone] * Uric acid (08/02/2025 8:56 AM EDT) Uric Acid 4.9 3.4 - 7.0 mg/dL [facility] 08/02/2025 8:56 AM EDT 08/02/2025 8:56 AM EDT Sancho Mayberry MD LAB BLOOD ORDERABLES Final Result Performing Organization Address [facility] Co de Phone Number [facility] [address] [place] [phone] * (ABNORMAL) Lipid Panel, Standard (08/02/2025 8:56 AM EDT) Triglycerides 224(H) <150 mg/dL [facility] Comment:Desirable Triglyceri de: less than 150 mg/dLBorderline High Triglyceride 150-199 mg/dLHigh Triglyceride: 200-499 mg/dLVery High Triglyceride: greater than or equal to 5OO mg/dL Cholesterol 163 <200 mg/dL [facility] Comment:Desirable Cholestero l: less than 200 mg/dLBorderline High Cholesterol: 200-239 mg/dLHigh Cholesterol: greater than 239 mg/dL LDL Cholesterol Calculated 81 <100 mg/dL [facility] Comment:Desirable LDL: less than 100 mg/dLNear Optimal/Above Optimal LDL: 110- 129 mg/dLBorderline High LDL: 130-159 mg/dLHigh LDL: 160-189 mg/dLVery High LDL: greater than or equal to 190 mg/dL HDL Cholesterol 38(L) >40 mg/dL [facility] Comment:Desirable HDL: great er than 40 mg/dL Note: This HDL assay may give artificially low results in patients with liver disease. Blood Venous blood specimen / Unknown 08/02/2025 8:56 AM EDT 08/02/2025 8:56 AM EDT us Sancho Mayberry MD LAB BLOOD ORDERABLES Final Result [facility] [address] [place] [phone] * (ABNORMAL) POCT DU-14 Urine Drug Screen (06/27/2025 10:22 AM EDT) THC Negative Negative Cocaine Screen, Urine Negative [...] - 06/27/2025 10:22 AM EDT .UTOX cup Lot#[id number] Exp. 08/22/26 Internal Pass Control us Janis Cm MECHANICAL RELIABILITY ENGINEER POINT OF CARE TEST ENTER/EDIT ORDERABLES Final Result * US Abdomen Comp w elastography (06/13/2025 10:30 AM EDT) Anatomical Region Laterality Modality Abdomen Ultrasound 06/13/2025 10:3 0 AM EDT Narrative 06/13/2025 11:13 AM EDT [address] [address] Ultrasound Report Signed Patient: Clint Beckford MR#: [id number] : 1955 Acct:[id number] Age/Sex: 69 / M ADM Date: 06/13/25 Loc: HO.US Attending Dr: Joshua Valdivia MD Ordering Physician: Joshua Valdivia MD Date of Service: 06/13/25 Procedure(s): US abdomen comp w elastography Accession Number(s): [id number] cc: Sancho Bean MD; Joshua Valdivia MD [...] 06/13/25 1110 DD/ 1030 TD/TT: 06/13/25 1100 Auto Repair Technician: Procedure Note Donotuseinterpreter, Image - 06/13/[address] [address] Ultrasound Report Signed Patient: Stephanie Beckford#: [id number] : 5Acct:[id number] Age/Sex: 69 / MADM Date: 06/13/25 Loc: HO.US Attending Dr: Joshua Valdivia MD Ordering Physician: Joshua Valdivia MD Date of Service: 06/13/25 Procedure(s): US abdomen comp w elastography Accession Number(s): [id number] cc: Sancho Bean MD; Joshua Valdivia MD [...] Joshua Cooper MD 06/13/2025 11:10 AM EDT RP Dictated By: Joshua Cooper MD Signed By: <Electronically signed by Joshua Cooper MD in OV> 06/13/25 1110 DD/ 1030 TD/TT: 06/13/25 1100 Auto Repair Technician: [facility] External Provider IMG US PROCEDURES Final Result * Colonoscopy (02/17/2022) Colonoscopy performed Historical Provider HEALTH MAINTENANCE Edited Result - Final from Last 3 Months or Most Recently Relevant to Health Maintenance Insurance [facility] [employer] OPTIONS (HMO D-SNP) [facility] STANDARD DENTAL [facility] Care Teams Photographic Restorer Relationship Specialty Start Date End Date Sancho Yoon MD [address] [place] [address] PCP - General Internal Medicine 08/16/14 Tae Kong MD [address] [place] [address] Cardiology 07/18/25
--- OUTSIDE RECORDS SUMMARY | 2025-09-13 09:12 | XMS_ITS | Encounter Summary ---
Author Organization [employer] Address [address] [place] [address] Care Team Providers Care Heater Operator Helper Name Role Phone Sancho Yoon MD Primary Care Provide r Tae Kong MD Unavailable [phone] Encounter Details Date Type Department Care Team ([facility] st Contact Info) Description 11/14/2024 Telephone [facility] [address] [place], [place] [phone] Sancho Yoon MD [address] [place] [address] Social History Tobacco Use Types Packs/Day Years [...] Description 09/18/2025 8:00 AM EST Office Visit [facility] [address] [place] [phone] Yi Sanchez 09/26/2025 9:45 AM EST Office Visit [facility] [address] [place] [phone] 10/26/2025 2:15 PM EST Office Visit [facility] [address] [place] [phone] Sancho Yoon MD [address] [place] [phone] documented as of this encounter Visit Diagnoses Not on filedocumented in this encounter Additional Health Concerns Assessment Noted Time PHQ-9 Depression Total Score: 0 09/29/20 24 9:48 AM EST documented as of this encounter Care Teams Heater Operator Helper Relationship Specialty Start Date End Date Sancho Yoon MD [address] [place] [phone] PCP - General Internal Medicine 08/16/14 Tae Kong MD [address] [place] [address] Cardiology 07/18/25 documented as of this encounter
--- OUTSIDE RECORDS SUMMARY | 2025-09-13 09:12 | XMS_ITS | Encounter Summary ---
Author Organization [employer] Address [address] [facility] [address] [place] [address] Care Team Providers Care Chemical Processing Laborer Name Role Phone Sancho Yoon MD Primary Care Provide r Tae Kong MD Unavailable [phone] Reason for Visit * Reason Comments Med Refill Encounter Details Date Type Department Care Team ([facility] st Contact Info) Description 10/17/2024 Refill [facility] [address] [place], [place] [phone] Sancho Yoon MD [address] [place] [address] Other chronic pain Social History Tobacco Use [...] Description 09/18/2025 8:00 AM EST Office Visit [facility] [address] [place] [phone] Yi Sanchez 09/26/2025 9:45 AM EST Office Visit [facility] [address] [place] [address] 10/26/2025 2:15 PM EST Office Visit [facility] [address] [place] [phone] Sancho Yoon MD [address] [place] [address] documented as of this encounter Visit Diagnoses Diagnosis Other chronic pain documented in this encounter Additional Health Concerns Assessment Noted Time PHQ-9 Depression Total Score: 0 09/29/20 24 9:48 AM EST documented as of this encounter Care Teams Chemical Processing Laborer Relationship Specialty Start Date End Date Sancho Yoon MD [address] [place] [address] PCP - General Internal Medicine 08/16/14 Tae Kong MD [address] [place] [address] Cardiology 07/18/25 documented as of this encounter
--- OUTSIDE RECORDS SUMMARY | 2025-09-13 09:12 | XMS_ITS | Encounter Summary ---
Author Organization [employer] Address [address] 7t [place] [address] Care Team Providers Care Mri Supervisor Name Role Phone Sancho Yoon MD Primary Care Provide r Tae Kong MD Unavailable [phone] Reason for Visit * Reason Comments Med Refill Encounter Details Date Type Department Care Team ([facility] Contact Info) Description 11/18/2023 Refill [facility] [address] [place], [place] [phone] Chad Foley MD [address] [place] [address] Social History Tobacco Use Types Packs/Day Years [...] Description 09/18/2025 8:00 AM EST Office Visit [facility] [address] [place] [address] Yi Sanchez 09/26/2025 9:45 AM EST Office Visit [facility] [address] [place] [address] 10/26/2025 2:15 PM EST Office Visit [facility] [address] [place] [address] Sancho Yoon MD [address] [place] [address] documented as of this encounter Visit Diagnoses Not on filedocumented in this encounter Additional Health Concerns Assessment Noted Time PHQ-9 Depression Total Score: 3 03/23/20 23 1:07 PM EDT documented as of this encounter Care Teams Mri Supervisor Relationship Specialty Start Date End Date Sancho Yoon MD [address] [place] [address] PCP - General Internal Medicine 08/16/14 Tae Kong MD [address] [place] [address] Cardiology 07/18/25 documented as of this encounter
--- OUTSIDE RECORDS SUMMARY | 2025-09-13 09:12 | XMS_ITS | Encounter Summary ---
Author Organization [employer] Address [address] [facility] 7t [place] [address] Care Team Providers Care Pumper Helper Name Role Phone Sancho Yoon MD Primary Care Provide r Tae Kong MD Unavailable [phone] Reason for Visit * Reason Comments Med Refill Encounter Details Date Type Department Care Team ([facility] st Contact Info) Description 02/08/2024 Refill [facility] [address] [place] [address] Sancho Yoon MD [address] [place], [place] [phone] Other chronic pain Social History Tobacco Use [...] 09/18/2025 8:00 AM EST Office Visit [facility] [address] [place] [address] Yi Sanchez 09/26/2025 9:45 AM EST Office Visit [facility] [address] [place] [address] 10/26/2025 2:15 PM EST Office Visit [facility] [address] [place] [address] Sancho Yoon MD [address] [place] [address] documented as of this encounter Visit Diagnoses Diagnosis Other chronic pain documented in this encounter Additional Health Concerns Assessment Noted Time PHQ-9 Depression Total Score: 3 03/23/20 23 1:07 PM EDT documented as of this encounter Care Teams Pumper Helper Relationship Specialty Start Date End Date Sancho Yoon MD [address] [place] [address] PCP - General Internal Medicine 08/16/14 Tae Kong MD [address] [place] [address] Cardiology 07/18/25 documented as of this encounter
--- OUTSIDE RECORDS SUMMARY | 2025-09-13 09:12 | XMS_ITS | Encounter Summary ---
Author Organization [employer] Address [address] [facility] 7t [place] [address] Care Team Providers Care First Front Ventilator Name Role Phone Sancho Yoon MD Primary Care Provide r Tae Kong MD Unavailable [phone] Reason for Visit * Reason Comments Med Refill Encounter Details Date Type Department Care Team ([facility] st Contact Info) Description 11/04/2024 Refill [facility] 230 [place] [address] Sancho Yoon MD 230 [place] [address] Erectile dysfunction, unspecified erectile dysfunction type Social [...] Upcoming Encounters Date Type Department Care Team ([facility] st Contact Info) Description 09/18/2025 8:00 AM EST Office Visit [facility] [address] [place] [address] Yi Sanchez 09/26/2025 9:45 AM EST Office Visit [facility] [address] [place] [address] 10/26/2025 2:15 PM EST Office Visit [facility] [address] [place] [address] Sancho Yoon MD [address] [place] [address] documented as of this encounter Visit Diagnoses Diagnosis Erectile dysfunction, unspecified erectile dysfunction type documented in this encounter Additional Health Concerns Assessment Noted Time PHQ-9 Depression Total Score: 0 09/29/20 24 9:48 AM EST documented as of this encounter Care Teams First Front Ventilator Relationship Specialty Start Date End Date Sancho Yoon MD [address] [place] [address] PCP - General Internal Medicine 08/16/14 Tae Kong MD [address] [place] [address] Cardiology 07/18/25 documented as of this encounter
--- NOTE | 2025-09-13 09:59 | PC.NURSE ---
Pt spoken to with enamel dipper, breakfast tray ordered, pt verbalizes no other needs at this time. medicated per order.
[2025-09-13 10:29] LABS: Sodium 144 mmol/L (135-145)
[2025-09-13] MEDS: 0.9 % Sodium Chloride Flush 3 ML SYRINGE IVFLUSH (20:08)
[2025-09-14 03:43] VITALS: BP 116/71; PULSE 75; RESP 18; TEMP 36.6; O2SAT 96
[2025-09-14 06:33] LABS: Anion Gap 10 (12-20); Blood Urea Nitrogen 13 mg/dL (9-16); Calcium 8.6 mg/dL (8.4-10.2); Carbon Dioxide 27 mmol/L (22-29); Chloride 108 mmol/L (96-108); Creatinine Clr Calc Pharmacy 77.2; Estimated Glomerular Filt Rate > 60; Potassium 4.1 mmol/L (3.3-5.1); Sodium 141 mmol/L (135-145)
[2025-09-14 06:43] LABS: Hematocrit 41.3 % (42.0-52.0); Hemoglobin 14.0 g/dl (14.0-18.0); Mean Corpuscular HGB Conc 33.9 g/dl (31.0-36.0); Mean Corpuscular Hemoglobin 30.5 pg (27.0-33.0); Mean Corpuscular Volume 90.0 fL (80.0-98.0); NRBC Abs Auto 0.000 X10*3/uL (0.0-0.012); NRBC Pct Auto 0.0 /100WBC (0.0-0.2); Platelet Count 232 X10*3/uL (160-400); Red Blood Count 4.59 X10*6/uL (4.60-5.80); White Blood Count 6.1 X10*3/uL (4.8-10.8)
[2025-09-14 07:24] VITALS: BP 109/64; PULSE 70; RESP 16; TEMP 36; O2SAT 94
[2025-09-14] MEDS: 0.9 % Sodium Chloride Flush 3 ML SYRINGE IVFLUSH (08:10)
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
--- NOTE | 2025-09-14 15:36 | MHC.CM.PN ---
PT LIVES WITH A SON AND ROOMMATE HE IS INDEPENDENT WITH CARE AND HAS NO SERVICES OR DME HE DOES NOT HAVE A HCP PCP: [facility] DELIVERED DCP: HOME TODAY VIA PRIVATE TRANSPORT
== END 2025-09-14 14:52 | disposition home or self-care (01) | DRG 641 ==
LOC: HO.ED 06:23 → HO.EDOVER 07:28 → HO.S3 14:05
PROVIDERS: Nurse Practitioner Acute Care; Admitting Provider Internal Medicine; Emergency Provider Emergency Medicine; PCP Internal Medicine; Visit Provider Hospitalist
DX: E87.0 Hyperosmolality and hypernatremia (principal); I10 Essential (primary) hypertension; E86.0 Dehydration; N40.0 Benign prostatic hyperplasia without lower urinary tract symptoms; J45.909 Unspecified asthma, uncomplicated; D64.9 Anemia, unspecified; Z86.718 Personal history of other venous thrombosis and embolism; Z79.01 Long term (current) use of anticoagulants; Z79.899 Other long term (current) drug therapy
CPT/HCPCS: 36415; 80048; 80053; 81003; 83880; 84295; 84484; 85025; 85027; 93005; 99285

== ENCOUNTER → 2025-09-13 05:03 | Outpatient (BNV) | payer OTHER, SELFPAY | PROVIDERS: Admitting Provider Internal Medicine; Emergency Provider Emergency Medicine; PCP Internal Medicine; Visit Provider Internal Medicine | DX: I10 Essential (primary) hypertension (principal) | CPT/HCPCS: 93010 ==

== ENCOUNTER → 2025-09-13 10:00 | Outpatient (BNV) | payer OTHER, SELFPAY | PROVIDERS: Admitting Provider Internal Medicine; Emergency Provider Emergency Medicine; PCP Internal Medicine; Visit Provider Nurse Practitioner Acute Care | DX: I10 Essential (primary) hypertension (principal); E87.0 Hyperosmolality and hypernatremia | CPT/HCPCS: 99223; 99239 ==

== ENCOUNTER 2025-10-04 14:49 | Outpatient (AMB) | payer OTHER, SELFPAY ==
--- OUTSIDE RECORDS SUMMARY | 2024-12-22 04:00 | XMS_ITS ---
Author Organization [facility] Address [address] [place] [address] Care Team Providers Care Software Security Architect Name Role Phone Raman Mayberry MD, Sancho Primary Care Provide Joshua Harvey [phone] REASON FOR VISIT Patient presents today for hx hep c Encounters Encounter Location Date Provider Diagnosis [facility] [address] [place] [address] 12/22/2024 Joshua Valdivia Plan Of Treatment Next Appt Details Provider Name:Joshua Valdivia , 05/01/2026 09:30:00 AM, [address], [address], [place], [address], Progress Notes * VENANCIO LARRYDOB:[birth year] (69 yo M)Acc No.[id number]:12/22/2024 Progress Notes Patient: Jen YU DANIELA VENANCIO Provider: Jen Valdivia MD :1955 A ge:69 Y S ex:Male Date:12/22/2024 Address:[address], [place], [place] Pcp:Sancho sandhu MD Subjective: * Chief Complaints: * P atient presents today for hx hep c * The named appointment provid er may or may not be the originator of this progress note, and it is not deemed complete until electronically signed by the appointment provider. Sign off status: Pending * Provider: Jen Valdivia MD Date: 0 12/22/2024 Generated for Jayla pollock/Megha/Arnieitting on: 12/05/2024 03:22 AM EST
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
[2025-10-04 14:51] VITALS: BP 120/72; PULSE 102; BMI 29.3
--- OUTSIDE RECORDS SUMMARY | 2025-10-05 03:21 | XMS_ITS | Encounter Summary ---
Author Organization [employer] Address [address] [facility] 7t [place] [address] Care Team Providers Care Semiautomatic Stitcher Operator Name Role Phone Sancho Yoon MD Primary Care Provide r Tae Kong MD Unavailable [phone] Reason for Visit * Reason Onset Date Comments Appointment Request 03/22/2025 Encounter Details Date Type Department Care Team ([facility] st Contact Info) Description 03/22/2025 Telephone [facility] [address] [place] [address] Sancho Yoon MD [address] [place] [address] Appointment Request Social History Tobacco Use Types [...] reschedule appointment from 03/07 Please contact pt [phone] documented in this encounter Plan of Treatment Upcoming Encounters Date Type Department Care Team ([facility] st Contact Info) Description 10/06/2025 8:00 AM EST Office Visit [facility] [address] [place] [address] Raimundo Lemus, ANDRE [address] [place] [address] 10/26/2025 2:15 PM EST Office Visit [facility] [address] [place] [address] Sancho Yoon MD [address] [place] [address] 11/28/2025 9:45 AM EST Office Visit [address] [address] 03/19/2026 8:00 AM EDT Office Visit [facility] [address] [place] [address] Yi Sanchez documented as of this encounter Visit Diagnoses Not on filedocumented in this encounter Additional Health Concerns Assessment Noted Time PHQ-9 Depression Total Score: 0 09/29/20 24 9:48 AM EST documented as of this encounter Care Teams Semiautomatic Stitcher Operator Relationship Specialty Start Date End Date Sancho Yoon MD [address] [place] [address] PCP - General Internal Medicine 08/16/14 Tae Kong MD [address] [place] [address] Cardiology 07/18/25 documented as of this encounter
--- OUTSIDE RECORDS SUMMARY | 2025-10-05 03:21 | XMS_ITS | Encounter Summary ---
Author Organization [employer] Address [address] [facility] 7t [place] [address] Care Team Providers Care Radioisotope Production Operator Name Role Phone Sancho Yoon MD Primary Care Provide r Tae Kong MD Unavailable [phone] Reason for Visit * Reason Onset Date Comments Med Refill 06/13/2025 Encounter Details Date Type Department Care Team ([facility] st Contact Info) Description 06/13/2025 Telephone [facility] [address] [place] [address] Sancho Yoon MD [address] [place] [address] Med Refill Social History Tobacco Use Types [...] immediate release tablet To be sent to: [facility] documented in this encounter Plan of Treatment Upcoming Encounters Date Type Department Care Team (Late st Contact Info) Description 10/06/2025 8:00 AM EST Office Visit [facility] [address] [place] [address] Raimundo Lemus, ANDRE [address] [place] [address] 10/26/2025 2:15 PM EST Office Visit [facility] [address] [place] [address] Sancho Yoon MD [address] [place] [address] 11/28/2025 9:45 AM EST Office Visit [facility] [address] [place] [address] 03/19/2026 8:00 AM EDT Office Visit [facility] [address] [place] [address] Yi Sanchez documented as of this encounter Visit Diagnoses Not on filedocumented in this encounter Additional Health Concerns Assessment Noted Time PHQ-9 Depression Total Score: 0 09/29/20 24 9:48 AM EST documented as of this encounter Care Teams Radioisotope Production Operator Relationship Specialty Start Date End Date Sancho Yoon MD [address] [place] [address] PCP - General Internal Medicine 08/16/14 Tae Kong MD [address] [place] [address] Cardiology 07/18/25 documented as of this encounter
--- OUTSIDE RECORDS SUMMARY | 2025-10-05 03:21 | XMS_ITS | Encounter Summary ---
Author Organization [employer] Address [address] [facility] 7t [place] [address] Care Team Providers Care Tube Balancer Name Role Phone Sancho Yoon MD Primary Care Provide r Tae Kong MD Unavailable [phone] Reason for Visit * Reason Onset Date Comments Med Refill 04/17/2025 Encounter Details Date Type Department Care Team ([facility] st Contact Info) Description 04/17/2025 Telephone [facility] [address] [place] [address] Sancho Yoon MD [address] [place] [address] Med Refill Social History Tobacco Use Types [...] immediate release tablet To be sent to: [facility] pharmacy documented in this encounter Plan of Treatment Upcoming Encounters Date Type Department Care Team (Late st Contact Info) Description 10/06/2025 8:00 AM EST Office Visit [facility] [address] [place] [address] Raimundo Lemus, ANDRE [address] [place] [address] 10/26/2025 2:15 PM EST Office Visit [facility] [address] [place] [address] Sancho Yoon MD [address] [place] [address] 11/28/2025 9:45 AM EST Office Visit [facility] [address] [place] [address] 03/19/2026 8:00 AM EDT Office Visit [facility] [address] [place] [address] Yi Sanchez documented as of this encounter Visit Diagnoses Not on filedocumented in this encounter Additional Health Concerns Assessment Noted Time PHQ-9 Depression Total Score: 0 09/29/20 24 9:48 AM EST documented as of this encounter Care Teams Tube Balancer Relationship Specialty Start Date End Date Sancho Yoon MD [address] [place] [address] PCP - General Internal Medicine 08/16/14 Tae Kong MD [address] [place] [address] Cardiology 07/18/25 documented as of this encounter
--- OUTSIDE RECORDS SUMMARY | 2025-10-05 03:21 | XMS_ITS | Encounter Summary ---
Author Organization [employer] Address [address] [facility] 7t [place] [address] Care Team Providers Care Printed Circuit Boards Beveler Name Role Phone Sancho Yoon MD Primary Care Provide r Tae Kong MD Unavailable [phone] Reason for Visit * Reason Comments Med Refill Encounter Details Date Type Department Care Team ([facility] st Contact Info) Description 08/08/2025 Refill [facility] [address] [place] [address] Miesha Schwartz, DO [address] [place] [address] Chronic right-sided low back pain with right-sided [...] Description 10/06/2025 8:00 AM EST Office Visit [facility] [address] [place] [address] Raimundo Lemus, ANDRE [address] [place] [address] 10/26/2025 2:15 PM EST Office Visit [facility] [address] [place] [address] Sancho Yoon MD [address] [place] [address] 11/28/2025 9:45 AM EST Office Visit [facility] [address] [place] [address] 03/19/2026 8:00 AM EDT Office Visit [facility] [address] [place] [address] Yi Sanchez documented as of this encounter Visit Diagnoses Diagnosis Chronic right-sided low back pain with right-sided sciatica documented in this encounter Additional Health Concerns Assessment Noted Time PHQ-9 Depression Total Score: 0 09/29/20 9:48 AM EST documented as of this encounter Care Teams Printed Circuit Boards Beveler Relationship Specialty Start Date End Date Sancho Yoon MD [address] [place] [address] PCP - General Internal Medicine 08/16/14 Tae Kong MD [address] [place] [address] Cardiology 07/18/25 documented as of this encounter
--- OUTSIDE RECORDS SUMMARY | 2025-10-05 03:21 | XMS_ITS | Encounter Summary ---
Author Organization [employer] Address 75 [facility] 7t [place] [address] Care Team Providers Care School Transportation Supervisor Name Role Phone Sancho Yoon MD Primary Care Provide r Tae Kong MD Unavailable [phone] Reason for Visit * Reason Comments Med Refill Encounter Details Date Type Department Care Team ([facility] st Contact Info) Description 02/27/[address] [facility] MED[facility]INE [address] [place] [address] Sancho Yoon MD 230 [place], [place] [phone] Benign prostatic hyperplasia with lower urinary tract [...] Description 10/06/2025 8:00 AM EST Office Visit [facility] ADULT DENTAL [address] [place] [address] Raimundo Lemus, ANDRE [address] [place] [address] 10/26/2025 2:15 PM EST Office Visit [facility] [address] [place] [address] Sancho Yoon MD [address] [place] [address] 11/28/2025 9:45 AM EST Office Visit [facility] [address] [place] [address] 03/19/2026 8:00 AM EDT Office Visit [facility] ADULT DENTAL [address] [place] [address] Yi Sanchez documented as of this encounter Visit Diagnoses Diagnosis Benign prostatic hyperplasia with lower urinary tract symptoms Other obstructive and reflux uropathy documented in this encounter Additional Health Concerns Assessment Noted Time PHQ-9 Depression Total Score: 0 09/29/20 24 9:48 AM EST documented as of this encounter Care Teams School Transportation Supervisor Relationship Specialty Start Date End Date Sancho Yoon MD 230 [place] [address] PCP - General Internal Medicine 08/16/14 Tae Kong MD [address] [place] [address] Cardiology 07/18/25 documented as of this encounter
--- OUTSIDE RECORDS SUMMARY | 2025-10-05 03:21 | XMS_ITS | Encounter Summary ---
Author Organization [employer] Address 75 [facility] 7t [place] [address] Care Team Providers Care Refrigeration Mechanic Helper Name Role Phone Sancho Yoon MD Primary Care Provide r Tae Kong MD Unavailable [phone] Reason for Visit * Reason Onset Date Comments Med Refill 04/03/2025 Encounter Details Date Type Department Care Team ([facility] st Contact Info) Description 04/03/2025 Telephone [facility] MEDICINE [address] [place] [address] Sancho Yoon MD [address] [place] [address] Med Refill Social History Tobacco Use Types [...] immediate release tablet To be sent to: [facility] documented in this encounter Plan of Treatment Upcoming Encounters Date Type Department Care Team (Late st Contact Info) Description 10/06/2025 8:00 AM EST Office Visit [facility] ADULT DENTAL [address] [place] [address] Raimundo Lemus, DMD [address] [place] [address] 10/26/2025 2:15 PM EST Office Visit [facility] MED[facility] [address] [place] [address] Sancho Yoon MD [address] [place] [address] 11/28/2025 9:45 AM EST Office Visit [facility] [address] [place] [address] 03/19/2026 8:00 AM EDT Office Visit [facility] ADULT DENTAL [address] [place] [address] Yi Sanchez documented as of this encounter Visit Diagnoses Not on filedocumented in this encounter Additional Health Concerns Assessment Noted Time PHQ-9 Depression Total Score: 0 09/29/20 24 9:48 AM EST documented as of this encounter Care Teams Refrigeration Mechanic Helper Relationship Specialty Start Date End Date Sancho Yoon MD [address] [place] [address] PCP - General Internal Medicine 08/16/14 Tae Kong MD [address] [place] [address] Cardiology 07/18/25 documented as of this encounter
--- OUTSIDE RECORDS SUMMARY | 2025-10-05 03:21 | XMS_ITS | Encounter Summary ---
Author Organization [employer] Address 75 [facility] 7t [place] [address] Care Team Providers Care Tube Cleaning Operator Name Role Phone Sancho Yoon MD Primary Care Provide r Tae Kong MD Unavailable [phone] Reason for Visit * Reason Onset Date Comments Med Refill 05/01/2025 Encounter Details Date Type Department Care Team ([facility] st Contact Info) Description 05/01/2025 Telephone [facility] MEDICINE 230 [place] [address] Sancho Yoon MD 230 [place] [address] Med Refill Social History Tobacco Use Types [...] be sent to: [facility] - [place], [place] - [address] [place] [address] documented in this encounter Plan of Treatment Upcoming Encounters Date Type Department Care Team (Late st Contact Info) Description 10/06/2025 8:00 AM EST Office Visit [facility] ADULT DENTAL [address] [place] [address] Raimundo Lemus, ANDRE 230 [place] [address] 10/26/2025 2:15 PM EST Office Visit [facility] MEDICINE [address] [place] [address] Sancho Yoon MD 230 [place] [address] 11/28/2025 9:45 AM EST Office Visit [facility] MED[facility]INE [address] [place] [address] 03/19/2026 8:00 AM EDT Office Visit [facility] ADULT DENTAL [address] [place] [address] Yi Sanchez documented as of this encounter Visit Diagnoses Not on filedocumented in this encounter Additional Health Concerns Assessment Noted Time PHQ-9 Depression Total Score: 0 09/29/20 24 9:48 AM EST documented as of this encounter Care Teams Tube Cleaning Operator Relationship Specialty Start Date End Date Sancho Yoon MD 230 [place] [address] PCP - General Internal Medicine 08/16/14 Tae Kong MD [address] [place] [address] Cardiology 07/18/25 documented as of this encounter
--- OUTSIDE RECORDS SUMMARY | 2025-10-05 03:21 | XMS_ITS | Encounter Summary ---
Author Organization [employer] Address 75 [facility] 7t [place] [address] Care Team Providers Care Manager Business Management Name Role Phone Sancho Yoon MD Primary Care Provide r Tae Kong MD Unavailable [phone] Reason for Visit * Reason Comments Med Refill Encounter Details Date Type Department Care Team ([facility] st Contact Info) Description 08/07/2025 Refill [facility] CHC MED & PEDS [address] [place] [address] Miesha Schwartz, DO [address] [place] [address] Chronic right-sided low back pain with right-sided [...] Description 10/06/2025 8:00 AM EST Office Visit [facility] ADULT DENTAL [address] [place] [address] Raimundo Lemus, ANDRE [address] [place] [address] 10/26/2025 2:15 PM EST Office Visit [facility] MEDICINE [address] [place] [address] Sancho Yoon MD [address] [place] [address] 11/28/2025 9:45 AM EST Office Visit [facility] MEDICINE [address] [place] [address] 03/19/2026 8:00 AM EDT Office Visit [facility] ADULT DENTAL [address] [place] [address] Yi Sanchez documented as of this encounter Visit Diagnoses Diagnosis Chronic right-sided low back pain with right-sided sciatica documented in this encounter Additional Health Concerns Assessment Noted Time PHQ-9 Depression Total Score: 0 09/29/20 9:48 AM EST documented as of this encounter Care Teams Manager Business Management Relationship Specialty Start Date End Date Sancho Yoon MD [address] [place] [address] PCP - General Internal Medicine 08/16/14 Tae Kong MD [address] [place] [address] Cardiology 07/18/25 documented as of this encounter
--- OUTSIDE RECORDS SUMMARY | 2025-10-05 03:21 | XMS_ITS | Encounter Summary ---
Author Organization [employer] Address 75 [facility] 7t [place] [address] Care Team Providers Care Steeping Press Operator Name Role Phone Sancho Yoon MD Primary Care Provide r Tae Kong MD Unavailable [phone] Reason for Visit * Reason Onset Date Comments Med Refill 09/04/2025 Encounter Details Date Type Department Care Team ([facility] st Contact Info) Description 09/04/2025 Telephone [facility] MEDICINE 230 [place] [address] Sancho Yoon MD 230 [place] [address] Med Refill Social History Tobacco Use Types [...] immediate release tablet To be sent to: [facility] documented in this encounter Plan of Treatment Upcoming Encounters Date Type Department Care Team (Late st Contact Info) Description 10/06/2025 8:00 AM EST Office Visit [facility] ADULT DENTAL 230 [place] [address] Raimundo Lemus, ANDRE [address] [place] [address] 10/26/2025 2:15 PM EST Office Visit [facility] MEDICINE [address] [place] [address] Sancho Yoon MD 230 [place] [address] 11/28/2025 9:45 AM EST Office Visit [facility] [address] [place] [address] 03/19/2026 8:00 AM EDT Office Visit [facility] ADULT DENTAL 230 [place] [address] Yi Sanchez documented as of this encounter Visit Diagnoses Not on filedocumented in this encounter Additional Health Concerns Assessment Noted Time PHQ-9 Depression Total Score: 0 09/29/20 24 9:48 AM EST documented as of this encounter Care Teams Steeping Press Operator Relationship Specialty Start Date End Date Sancho Yoon MD [address] [place] [address] PCP - General Internal Medicine 08/16/14 Tae Kong MD [address] [place] [address] Cardiology 07/18/25 documented as of this encounter
--- OUTSIDE RECORDS SUMMARY | 2025-10-05 03:21 | XMS_ITS | Encounter Summary ---
Author Organization [employer] Address 75 [facility] 7t [place] [address] Care Team Providers Care Mortising Machine Operator Name Role Phone Sancho Yoon MD Primary Care Provide r Tae Kong MD Unavailable [phone] Reason for Visit * Reason Comments Med Refill Encounter Details Date Type Department Care Team ([facility] st Contact Info) Description 02/22/2025 Refill [facility] CHC MED & PEDS [address] [place], [place] [phone] Sancho Yoon MD [address] [place] [address] Other chronic pain Social History Tobacco Use [...] Description 10/06/2025 8:00 AM EST Office Visit [facility] ADULT DENTAL [address] [place] [address] Raimundo Lemus, ANDRE [address] [place] [address] 10/26/2025 2:15 PM EST Office Visit [facility] MEDICINE [address] [place] [address] Sancho Yoon MD [address] [place] [address] 11/28/2025 9:45 AM EST Office Visit [facility] MEDICINE [address] [place] [address] 03/19/2026 8:00 AM EDT Office Visit [facility] ADULT DENTAL [address] [place] [address] Yi Sanchez documented as of this encounter Visit Diagnoses Diagnosis Other chronic pain documented in this encounter Additional Health Concerns Assessment Noted Time PHQ-9 Depression Total Score: 0 09/29/20 24 9:48 AM EST documented as of this encounter Care Teams Mortising Machine Operator Relationship Specialty Start Date End Date Sancho Yoon MD [address] [place] [address] PCP - General Internal Medicine 08/16/14 Tae Kong MD [address] [place] [address] Cardiology 07/18/25 documented as of this encounter
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
--- OUTSIDE RECORDS SUMMARY | 2025-10-05 03:21 | XMS_ITS | Encounter Summary ---
Author Organization [employer] Address 75 [facility] 7t [place] [address] Care Team Providers Care Laborer Cement Gun Placing Name Role Phone Sancho Yoon MD Primary Care Provide r Tae Kong MD Unavailable [phone] Reason for Visit * Reason Onset Date Comments Med Refill 10/02/2025 Encounter Details Date Type Department Care Team ([facility] st Contact Info) Description 10/02/2025 Telephone [facility] MEDICINE [address] [place] [address] Sancho Yoon MD [address] [place] [address] Med Refill Social History Tobacco Use Types [...] encounter Miscellaneous Notes * Telephone Encounter - Delmi Gregorio - 10/02/2025 10:17 AM EST TC from pt requesting medication refill. Medications needing refill : oxyCODONE (Roxicodone) 5 MG immediate release tablet To be sent to: [facility] documented in this encounter Plan of Treatment Upcoming Encounters Date Type Department Care Team (Late st Contact Info) Description 10/06/2025 8:00 AM EST Office Visit [facility] ADULT DENTAL [address] [place] [address] Raimundo Lemus, ANDRE [address] [place] [address] 10/26/2025 2:15 PM EST Office Visit [facility] MEDICINE [address] [place] [address] Sancho Yoon MD [address] [place] [address] 11/28/2025 9:45 AM EST Office Visit [facility] MEDICINE [address] [place] [address] 03/19/2026 8:00 AM EDT Office Visit [facility] ADULT DENTAL [address] [place] [address] Yi Sanchez documented as of this encounter Visit Diagnoses Not on filedocumented in this encounter Additional Health Concerns Assessment Noted Time PHQ-9 Depression Total Score: 0 09/29/20 24 9:48 AM EST documented as of this encounter Care Teams Laborer Cement Gun Placing Relationship Specialty Start Date End Date Sancho Yoon MD 230 [place] [address] PCP - General Internal Medicine 08/16/14 Tae Kong MD [address] [place] [address] Cardiology 07/18/25 documented as of this encounter
--- OUTSIDE RECORDS SUMMARY | 2025-10-05 03:21 | XMS_ITS | Encounter Summary ---
Author Organization [employer] Address 75 [facility] 7t [place] [address] Care Team Providers Care Electrician Third Name Role Phone Sancho Yoon MD Primary Care Provide r Tae Kong MD Unavailable [phone] Reason for Visit * Reason Onset Date Comments Med Refill 10/02/2025 Encounter Details Date Type Department Care Team ([facility] st Contact Info) Description 10/02/[address] [facility] MED & PEDS [address] [place], [place] [phone] 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, ELISEO [address] [place] [address] Chronic right-sided low back pain with right-sided [...] Description 10/06/2025 8:00 AM EST Office Visit [facility] ADULT DENTAL [address] [place] [phone] Raimundo Lemus, ANDRE [address] [place] [address] 10/26/2025 2:15 PM EST Office Visit [facility] MEDICINE [address] [place] [address] Sancho Yoon MD [address] [place] [address] 11/28/2025 9:45 AM EST Office Visit [facility] MEDICINE [address] [place] [address] 03/19/2026 8:00 AM EDT Office Visit [facility] ADULT DENTAL [address] [place] [address] Yi Sanchez documented as of this encounter Visit Diagnoses Diagnosis Chronic right-sided low back pain with right-sided sciatica documented in this encounter Additional Health Concerns Assessment Noted Time PHQ-9 Depression Total Score: 0 09/29/20 9:48 AM EST documented as of this encounter Care Teams Electrician Third Relationship Specialty Start Date End Date Sancho Yoon MD [address] [place] [address] PCP - General Internal Medicine 08/16/14 Tae Kong MD [address] [place] [address] Cardiology 07/18/25 documented as of this encounter
--- OUTSIDE RECORDS SUMMARY | 2025-10-05 03:22 | XMS_ITS | Encounter Summary ---
Author Organization [employer] Address 75 [facility] 7t [place] [address] Care Team Providers Care Clock And Watch Hands Dipper Name Role Phone Sancho Yoon MD Primary Care Provide r Tae Kong MD Unavailable [phone] Reason for Visit * Reason Comments Med Refill Encounter Details Date Type Department Care Team ([facility] st Contact Info) Description 07/02/2024 Refill [facility] MEDICINE [address] [place] [address] Sancho Yoon MD [address] [place], [place] [phone] Mild intermittent asthma without complication Social History [...] Description 10/06/2025 8:00 AM EST Office Visit [facility] ADULT DENTAL [address] [place] [address] Raimundo Lemus, ANDRE [address] [place] [address] 10/26/2025 2:15 PM EST Office Visit [facility] MEDICINE [address] [place] [address] Sancho Yoon MD [address] [place] [address] 11/28/2025 9:45 AM EST Office Visit [facility] MEDICINE [address] [place] [address] 03/19/2026 8:00 AM EDT Office Visit [facility] ADULT DENTAL [address] [place] [address] Yi Sanchez documented as of this encounter Visit Diagnoses Diagnosis Mild intermittent asthma without complication documented in this encounter Additional Health Concerns Assessment Noted Time PHQ-9 Depression Total Score: 3 03/23/20 23 1:07 PM EDT documented as of this encounter Care Teams Clock And Watch Hands Dipper Relationship Specialty Start Date End Date Sancho Yoon MD [address] [place] [address] PCP - General Internal Medicine 08/16/14 Tae Kong MD [address] [place] [address] Cardiology 07/18/25 documented as of this encounter
--- OUTSIDE RECORDS SUMMARY | 2025-10-05 03:22 | XMS_ITS | Encounter Summary ---
Author Organization [employer] Address 75 [facility] 7t [place] [address] Care Team Providers Care Sr. Director Product Management Name Role Phone Sancho Yoon MD Primary Care Provide r Tae Kong MD Unavailable [phone] Encounter Details Date Type Department Care Team (Latest Contact Info) Description 07/04/2022 Abstract [facility] CONVERSIONS Dental, Provider, DDS Social History Tobacco [...] Care Team ( st Contact Info) Description 10/06/2025 8:00 AM EST Office Visit [facility] ADULT DENTAL [address] [place] [address] Raimundo Lemus, ANDRE [address] [place] [address] 10/26/2025 2:15 PM EST Office Visit [facility] MEDICINE [address] [place] [address] Sancho Yoon MD [address] [place] [address] 11/28/2025 9:45 AM EST Office Visit [facility] MEDICINE [address] [place] [address] 03/19/2026 8:00 AM EDT Office Visit [facility] ADULT DENTAL [address] [place] [address] Yi Sanchez documented as of this encounter Visit Diagnoses Not on filedocumented in this encounter Care Teams Sr. Director Product Management Relationship Specialty Start Date End Date Sancho Yoon MD [address] [place] [address] PCP - General Internal Medicine 08/16/14 Tae Kong MD [address] [place] [address] Cardiology 07/18/25 documented as of this encounter
--- OUTSIDE RECORDS SUMMARY | 2025-10-05 03:22 | XMS_ITS | Encounter Summary ---
Author Organization [employer] Address 75 [facility] 7t [place] [address] Care Team Providers Care Claims Supervisor Name Role Phone Sancho Yoon MD Primary Care Provide r Tae Kong MD Unavailable Encounter Details Date Type Department Care Team (Late Contact Info) Description 10/29/2022 Orders Only [facility] MEDICINE [address] [place] [address] Sancho Yoon MD [address] [place] [address] Pleural scarring (Primary Dx); Abnormal chest CT [...] Upcoming Encounters Date Type Department Care Team ([facility] Contact Info) Description 10/06/2025 8:00 AM EST Office Visit [facility] ADULT DENTAL [address] [place] [address] Raimundo Lemus DMD 230 [place] [address] 10/26/2025 2:15 PM EST Office Visit [facility] MEDICINE [address] [place] [address] Sancho Yoon MD [address] [facility] [place] [address] 11/28/2025 9:45 AM EST Office Visit [facility] MEDICINE [address] [place] [address] 03/19/2026 8:00 AM EDT Office Visit [facility] ADULT DENTAL 230 [facility] [place] [phone] Yi Sanchez documented as of this encounter [...] EST) Protime 42.3(H) 11.1 - 13.5 sec [facility] 12/18/2022 2:35 PM EST 12/18/2022 2:37 PM EST us [facility] External Provider LAB BLO OD ORDERABLES Final Result [facility] [address] [place] [phone] * (ABNORMAL) ~PT, ~INR - ANTI COAG CLINIC (12/18/2022 2:35 PM EST) Prothrombin Time INR 3.5(H) 0.9 - 1.1 [facility] Comment:METER #: [id number] TERNATIONAL NORMALIZED RATIO (INR) REFERENCE RANGES Reference [...] 2:35 PM EST 12/18/2022 2:37 PM EST [facility] External Provider LAB BLO OD ORDERABLES Final Result Performing Organization Address City/[facility] Co de Phone Number [facility] [address] [place] [phone] * (ABNORMAL) PROTHROMBIN TIME WHOLE BLD POC (12/11/2022 2:35 PM EST) Protime 36.7(H) 11.1 - 13.5 sec [facility] 12/11/2022 2:35 PM EST 12/11/2022 2:36 PM EST [facility] External Provider LAB BLO OD ORDERABLES Final Result Performing Organization Address City/[facility]/ZIP Co de Phone Number [facility] [address] [place] [phone] * (ABNORMAL) ~PT, ~INR - ANTI COAG CLINIC (12/11/2022 2:35 PM EST) Prothrombin Time INR 3.1(H) 0.9 - 1.1 [facility] Comment:METER #: [id number] TERNATIONAL NORMALIZED RATIO (INR) REFERENCE RANGES Reference [...] 2:35 PM EST 12/11/2022 2:36 PM EST [facility] External Provider LAB BLO OD ORDERABLES Final Result Performing Organization Address [facility] Co de Phone Number [facility] [address] [place] [address] [phone] * (ABNORMAL) PROTHROMBIN TIME WHOLE BLD POC (12/04/2022 3:39 PM EST) Protime 56.8(H) 11.1 - 13.5 sec [facility] 12/04/2022 3:39 PM EST 12/04/2022 3:40 PM EST [facility] External Provider LAB BLO OD ORDERABLES Final Result Performing Organization Address [facility] de Phone Number [facility] [address] [place] [phone] * (ABNORMAL) ~PT, ~INR - ANTI COAG CLINIC (12/04/2022 3:39 PM EST) Prothrombin Time INR 4.7(H) 0.9 - 1.1 [facility] Comment:METER #: [id number] TERNATIONAL NORMALIZED RATIO (INR) REFERENCE RANGES Reference [...] 3:39 PM EST 12/04/2022 3:40 PM EST us [facility] External Provider LAB BLO OD ORDERABLES Final Result [facility] [address] [place] [address] [phone] * (ABNORMAL) Liver Fibrosis, FibroTest-ActiTest Panel (12/04/2022 10:15 AM EST) Liver Fibrosis Score 0.58 [facility] Liver Fibrosis Stage F2 [facility] Liver Fibrosis Interpretation SEE NOTE [facility] Comment:moderate fibrosisFib ro Test [...] (severe fibrosis) Nec Inflam Act Score 0.41 [facility] Nec Inflam Act Grade A1-A2 [facility] Nec Inflam Act Interpretation SEE NOTE [facility] Comment:minimal activityActi Test Score (a) Metavir Score a>=0 and a<=0.17 : A0 (no activity)a>0.17 and a<=0.29 : A0-A1 (no activity)a>0.29 and a<=0.36 : A1 (minimal activity)a>0.36 and a<=0.52 : A1-A2 (minimal activity)a>0.52 and a<=0.60 : A2 (significant activity)a>0.60 and a<=0.62 : A2-A3 (significant activity)a>0.62 and a<=1.00 : A3 (severe activity) FKF-Jdxyy-9-Macroglo bulin 275 106 - 279 mg/dL [facility] FIB-Haptoglobin 120 43 - 212 mg/dL [facility] FIB-Apolipoprotein A1 171 94 - 176 mg/dL [facility] FIB-Total Bilirubin 0.8 0.2 - 1.2 mg/dL [facility] FIB-GGT 64 3 - 70 U/L [facility] FIB-ALT 53(A) 9 - 46 U/L [facility] Reference [place] [id number] [facility] Footnote SEE NOTE [facility] Comment: The reliability of [...] and C.The performance characteristics have been determined by[employer] [facility]. Ithas not been cleared or approved by the U.S. Food and DrugAdministration. Performance characteristics refer to theanalytical performance of the test.AB Tasty, the associated logo, [employer] and all associated [employer] holloway are theregistered trademarks of [employer]. All third partymarks - (R) and (TM) - are the property of their respectiveowners. (C) [id number] [employer]. Allrights reserved.THIS TEST WAS PERFORMED AT:[employer] [id number] [place] [address]GBDZWJOHN JERNIGAN MD,PHD,DAYDAY 12/04/2022 10:1 5 AM EST 12/04/2022 10:15 AM EST [facility] External Provider LAB BLO OD ORDERABLES Final Result Performing Organization Address [facility] de Phone Number [facility] [address] [place] [phone] * Alphafetoprotein, Tumor Marker (12/04/2022 10:15 AM EST) [facility] Alpha Fetoprotein 2.5 <6.1 ng/mL [facility] Comment:This test was perfor med using the Deacon Coulterchemiluminescent method. Values obtained fromdifferent assay methods cannot be usedinterchangeably. AFP levels, regardless ofvalue, should not be interpreted as absoluteevidence of the presence or absence of disease.THIS TEST WAS PERFORMED AT:[employer] [address] ([address])[place] [address]LIWORTINO PALOMARES MD 12/04/2022 10:1 5 AM EST 12/04/2022 10:15 AM EST [facility] External Provider LAB BLO OD ORDERABLES Final Result Performing Organization Address [facility] Co de Phone Number [facility] [address] [place] [phone] * (ABNORMAL) Hepatic Function Panel (12/04/2022 10:15 AM EST) Bilirubin, Total 1.0 0.0 - 1.0 mg/dL [facility] Bilirubin, Direct 0.3 0.0 - 0.5 mg/dL [facility] Aspartate Amino Transferase 35 5 - 37 U/L [facility] Alanine Aminotransferase 58(H) 0 - 40 U/L [facility] Total Protein 7.2 6.5 - 8.0 g/dL [facility] Albumin Level 4.2 3.5 - 5.0 g/dL [facility] Alkaline Phosphatase 63 39 - 117 U/L [facility] 12/04/2022 10:1 5 AM EST 12/04/2022 10:15 AM EST us [facility] External Provider LAB BLO OD ORDERABLES Final Result [facility] [address] [place] [address] [phone] * (ABNORMAL) CBC auto differential (12/04/2022 10:15 AM EST) White Blood Count 6.9 4.8 - 10.8 X10*3/uL [facility] Red Blood Count 4.93 4.60 - 5.80 X10*6/uL [facility] Hemoglobin 15.0 14.0 - 18.0 g/dl [facility] Hematocrit 44.5 42.0 - 52.0 % [facility] Mean Corpuscular Volume 90.3 80.0 - 98.0 fL [facility] Mean Corpuscular Hemoglobin 30.4 27.0 - 33.0 pg [facility] Mean Corpuscular HGB Conc 33.7 31.0 - 36.0 g/dl [facility] Red Cell Distribution Width 13.4 11.0 - 16.0 % [facility] Platelet Count 218 160 - 400 X10*3/uL [facility] Mean Platelet Volume 10.0 9.4 - 12.4 fL [facility] Neutrophils Percent Auto 34.1(L) 45 - 73 % [facility] Imm Gran Pct Auto 0.4 0.0 - 0.4 % [facility] Lymphocytes Percent Auto 52.2(H) 20 - 40 % [facility] Monocytes Percent Auto 9.0 2 - 11 % [facility] Eosinophils Percent Auto 3.9 0 - 4 % [facility] Basophils Percent Auto 0.4 0 - 2 % [facility] NRBC Pct Auto 0.0 0.0 - 0.2 /100WBC [facility] Neutrophils Absolute Auto 2.3 2.0 - 8.3 x10*3/uL [facility] Imm Gran Abs Auto 0.03 0.00 - 0.03 X10*3/uL [facility] Lymphocytes Absolute Auto 3.6 1.2 - 4.9 X10*3/uL [facility] Monocytes Absolute Auto 0.6 0.1 - 1.2 X10*3/uL [facility] Eosinophils Absolute Auto 0.3 0.0 - 0.4 X10*3/uL [facility] Basophils Absolute Auto 0.0 0.0 - 0.2 X10*3/uL [facility] NRBC Abs Auto 0.000 0.0 - 0.012 X10*3/uL [facility] 12/04/2022 10:1 5 AM EST 12/04/2022 10:15 AM EST [facility] External Provider LAB BLO OD ORDERABLES Final Result Performing Organization Address City/State/[facility] Co de Phone Number [facility] [address] [place] [address] [phone] * POCT Creatinine GFR (12/04/2022 9:49 AM EST) POCT Creatinine 0.9 0.5 - 1.4 mg/dL [facility] GFR POC >60 [facility] Comment:Chronic Kidney Disea se: Estimated GFR < 60 mL/min/1.36a4Npqbmq Kidney Disease: Estimated GFR < 15 mL/min/1.73m2 12/04/2022 9:49 AM EST 12/04/2022 4:06 PM EST Narrative [facility] - 12/04/2022 4:07 PM EST [id number] [facility] Exter nal Provider LAB POINT OF CARE TEST DOCKED DEVICE ORDERABLES Final Result Performing Organization Address [facility] Co de Phone Number [facility] [address] [place] [address] [phone] * (ABNORMAL) PROTHROMBIN TIME WHOLE BLD POC (12/03/2022 2:54 PM EST) Protime 69.3(H) 11.1 - 13.5 sec [facility] 12/03/2022 2:54 PM EST 12/03/2022 3:30 PM EST [facility] External Provider LAB BLO OD ORDERABLES Final Result Performing Organization Address [facility] Co de Phone Number [facility] [address] [place] [address] [phone] * (ABNORMAL) ~PT, ~INR - ANTI COAG CLINIC (12/03/2022 2:54 PM EST) Prothrombin Time INR 5.8(HH) 0.9 - 1.1 [facility] Comment:METER #: [id number] ctor NotifiedINTERNATIONAL NORMALIZED RATIO (INR) REFERENCE RANGES [...] 2:54 PM EST 12/03/2022 3:30 PM EST [facility] External Provider LAB BLO OD ORDERABLES Final Result Performing Organization Address [facility] Co de Phone Number [facility] [address] [place] [phone] * (ABNORMAL) PROTHROMBIN TIME WHOLE BLD POC (11/26/2022 2:46 PM EST) Protime 40.1(H) 11.1 - 13.5 sec [facility] 11/26/2022 2:46 PM EST 11/26/2022 2:47 PM EST [facility] External Provider LAB BLO OD ORDERABLES Final Result Performing Organization Address City/[facility] Co de Phone Number [facility] [address] [place] [phone] [phone] * (ABNORMAL) ~PT, ~INR - ANTI COAG CLINIC (11/26/2022 2:46 PM EST) Prothrombin Time INR 3.3(H) 0.9 - 1.1 [facility] Comment:METER #: [id number] TERNATIONAL NORMALIZED RATIO (INR) REFERENCE RANGES Reference [...] 2:46 PM EST 11/26/2022 2:47 PM EST [facility] External Provider LAB BLO OD ORDERABLES Final Result Performing Organization Address City/[facility] Co de Phone Number [facility] [address] [place] [address] [phone] * (ABNORMAL) PROTHROMBIN TIME WHOLE BLD POC (11/05/2022 3:33 PM EST) Protime 33.6(H) 11.1 - 13.5 sec [facility] 11/05/2022 3:33 PM EST 11/05/2022 3:35 PM EST [facility] External Provider LAB BLO OD ORDERABLES Final Result Performing Organization Address [facility]/ZIP Co de Phone Number [facility] [address] [place] [phone] * (ABNORMAL) ~PT, ~INR - ANTI COAG CLINIC (11/05/2022 3:33 PM EST) Prothrombin Time INR 2.8(H) 0.9 - 1.1 [facility] Comment:METER #: [id number] TERNATIONAL NORMALIZED RATIO (INR) REFERENCE RANGES Reference [...] 3:33 PM EST 11/05/2022 3:35 PM EST [facility] External Provider LAB BLO OD ORDERABLES Final Result Performing Organization Address [facility] Co de Phone Number [facility] [address] [place] [phone] * (ABNORMAL) PROTHROMBIN TIME WHOLE BLD POC (10/29/2022 3:11 PM EST) Protime 45.2(H) 11.1 - 13.5 sec [facility] 10/29/2022 3:11 PM EST 10/30/2022 7:55 AM EST [facility] External Provider LAB BLO OD ORDERABLES Final Result Performing Organization Address City/[facility] Co de Phone Number [facility] [address] [place] [phone] * (ABNORMAL) ~PT, ~INR - ANTI COAG CLINIC (10/29/2022 3:11 PM EST) Prothrombin Time INR 3.8(H) 0.9 - 1.1 [facility] Comment:METER #: [id number] TERNATIONAL NORMALIZED RATIO (INR) REFERENCE RANGES Reference [...] 3:11 PM EST 10/30/2022 7:55 AM EST us [facility] External Provider LAB BLO OD ORDERABLES Final Result [facility] [address] [place] [phone] [phone] documented in this encounter Visit Diagnoses Diagnosis Pleural scarring- Primary Pleurisy without mention of effusion or current tuberculosis Abnormal chest CT Nonspecific (abnormal) findings on radiological and other examination of other intrathoracic organs documented in this encounter Care Teams Claims Supervisor Relationship Specialty Start Date End Date aSncho Yoon MD [address] [place] [address] PCP - General Internal Medicine 08/16/14 Tae Kong MD [address] [place] [phone] Cardiology 07/18/25 documented as of this encounter
--- OUTSIDE RECORDS SUMMARY | 2025-10-05 03:22 | XMS_ITS | Encounter Summary ---
Author Organization [employer] Address [address] [place] [address] Care Team Providers Care Public Safety Telecommunicator Name Role Phone Sancho Yoon MD Primary Care Provide r Tae Kong MD Unavailable [phone] Reason for Visit * Reason Comments Med Refill Encounter Details Date Type Department Care Team ([facility] Contact Info) Description 04/18/2025 Refill [facility] [address] [place] [address] Miesha Schwartz DO [address] [place] [address] Social History Tobacco Use Types Packs/Day Years [...] Description 10/06/2025 8:00 AM EST Office Visit [facility]ULT [facility] [address] [place] [address] Raimundo Lemus, ANDRE [address] [place] [address] 10/26/2025 2:15 PM EST Office Visit [facility] MEDICINE [address] [place] [phone] Sancho Yoon MD [address] [place] [address] 11/28/2025 9:45 AM EST Office Visit [facility] [address] [place] [phone] 03/19/2026 8:00 AM EDT Office Visit [facility] [address] [place] [address] Yi Sanchez documented as of this encounter Visit Diagnoses Not on filedocumented in this encounter Additional Health Concerns Assessment Noted Time PHQ-9 Depression Total Score: 0 09/29/20 9:48 AM EST documented as of this encounter Care Teams Public Safety Telecommunicator Relationship Specialty Start Date End Date Sancho Yoon MD [address] [place] [address] PCP - General Internal Medicine 08/16/14 Tae Kong MD [address] [place] [address] Cardiology 07/18/25 documented as of this encounter
--- OUTSIDE RECORDS SUMMARY | 2025-10-05 03:22 | XMS_ITS | Encounter Summary ---
Author Organization [employer] Address [address] [facility] 7t [place] [address] Care Team Providers Care Laborer/Key Man Name Role Phone Sancho Yoon MD Primary Care Provide r Tae Kong MD Unavailable [phone] Reason for Visit * Reason Onset Date Comments Med Refill 04/19/2024 Encounter Details Date Type Department Care Team ([facility] st Contact Info) Description 04/19/2024 Telephone [facility] MEDICINE [address] [place] [address] Sancho Yoon MD 230 [place] [address] Med Refill Social History Tobacco Use Types [...] immediate release tablet To be sent to: [facility] Pharmacy documented in this encounter Plan of Treatment Upcoming Encounters Date Type Department Care Team (Late st Contact Info) Description 10/06/2025 8:00 AM EST Office Visit [facility] ADULT DENTAL [address] [place] [address] Raimundo Lemus DMD [address] [place] [address] 10/26/2025 2:15 PM EST Office Visit [facility] MEDICINE [address] [place] [address] Sancho Yoon MD 230 [place] [address] 11/28/2025 9:45 AM EST Office Visit [facility] MEDICINE [address] [place] [address] 03/19/2026 8:00 AM EDT Office Visit [facility] ADULT DENTAL [address] [place] [address] Yi Sanchez documented as of this encounter Visit Diagnoses Not on filedocumented in this encounter Additional Health Concerns Assessment Noted Time PHQ-9 Depression Total Score: 3 03/23/20 23 1:07 PM EDT documented as of this encounter Care Teams Laborer/Key Man Relationship Specialty Start Date End Date Sancho Yoon MD [address] [place] [address] PCP - General Internal Medicine 08/16/14 Tae Kong MD [address] [place] [address] Cardiology 07/18/25 documented as of this encounter
--- OUTSIDE RECORDS SUMMARY | 2025-10-05 03:22 | XMS_ITS | Encounter Summary ---
Author Organization [employer] Address [address] [facility] 7t [place] [address] Care Team Providers Care Machinery Dismantler Name Role Phone Sancho Yoon MD Primary Care Provide r Tae Kong MD Unavailable [phone] Reason for Visit * Reason Onset Date Comments Appointment Request 04/05/2024 Encounter Details Date Type Department Care Team ([facility] st Contact Info) Description 04/05/2024 Telephone [facility] MEDICINE [address] [place] [address] Sancho Yoon MD [address] [place] [address] Appointment Request Social History Tobacco Use Types [...] to know if there is any upcoming [employer] visits to be scheduled. Please contact pt at [phone]. documented in this encounter Plan of Treatment Upcoming Encounters Date Type Department Care Team (Late st Contact Info) Description 10/06/2025 8:00 AM EST Office Visit [facility] ADULT DENTAL [address] [place] [address] Raimundo Lemus, ANDRE [address] [place] [address] 10/26/2025 2:15 PM EST Office Visit [facility] MEDICINE [address] [place] [address] Sancho Yoon MD 230 [place] [address] 11/28/2025 9:45 AM EST Office Visit [facility] MEDICINE [address] [place] [address] 03/19/2026 8:00 AM EDT Office Visit [facility] ADULT DENTAL [address] [place] [address] Yi Sanchez documented as of this encounter Visit Diagnoses Not on filedocumented in this encounter Additional Health Concerns Assessment Noted Time PHQ-9 Depression Total Score: 3 03/23/20 23 1:07 PM EDT documented as of this encounter Care Teams Machinery Dismantler Relationship Specialty Start Date End Date Sancho Yoon MD 230 [place] [address] PCP - General Internal Medicine 08/16/14 Tae Kong MD [address] [place] [address] Cardiology 07/18/25 documented as of this encounter
--- OUTSIDE RECORDS SUMMARY | 2025-10-05 03:22 | XMS_ITS | Encounter Summary ---
Author Organization [employer] Address [address] [facility] 7t [place] [address] Care Team Providers Care Husbandry Technician Name Role Phone Sancho Yoon MD Primary Care Provide r Tae Kong MD Unavailable [phone] Reason for Visit * Reason Onset Date Comments Med Refill 07/25/2024 Encounter Details Date Type Department Care Team (Late st Contact Info) Description 07/25/2024 Telephone [facility] MEDICINE 230 [place] [address] Sancho Yoon MD [address] [place] [address] Med Refill Social History Tobacco Use Types [...] release tablet To be sent to: [facility] - [place], [place] - [address] [place] [address] documented in this encounter Plan of Treatment Upcoming Encounters Date Type Department Care Team ([facility] st Contact Info) Description 10/06/2025 8:00 AM EST Office Visit [facility] ADULT DENTAL [address] [place] [address] Raimundo Lemus DMD [address] [place] [address] 10/26/2025 2:15 PM EST Office Visit [facility] MEDICINE [address] [place] [address] Sancho Yoon MD [address] [place] [address] 11/28/2025 9:45 AM EST Office Visit [facility] MEDICINE [address] [place] [address] 03/19/2026 8:00 AM EDT Office Visit [facility] ADULT DENTAL [address] [place] [address] Yi Sanchez documented as of this encounter Visit Diagnoses Not on filedocumented in this encounter Additional Health Concerns Assessment Noted Time PHQ-9 Depression Total Score: 3 03/23/20 23 1:07 PM EDT documented as of this encounter Care Teams Husbandry Technician Relationship Specialty Start Date End Date Sancho Yoon MD 230 [place] [address] PCP - General Internal Medicine 08/16/14 Tae Kong MD [address] [place] [address] Cardiology 07/18/25 documented as of this encounter
--- OUTSIDE RECORDS SUMMARY | 2025-10-05 03:22 | XMS_ITS | Encounter Summary ---
Author Organization [employer] Address [address] [facility] 7t [place] [address] Care Team Providers Care Metallurgical Laboratory Assistant Name Role Phone Sancho Yoon MD Primary Care Provide r Tae Kong MD Unavailable [phone] Reason for Visit * Reason Onset Date Comments Med Refill 08/22/2024 Encounter Details Date Type Department Care Team ([facility] st Contact Info) Description 08/22/2024 Telephone [facility] MEDICINE [address] [place] [address] Sancho Yoon MD 230 [place] [address] Med Refill Social History Tobacco Use Types [...] immediate release tablet To be sent to: [facility] - [place], [place] - [address] [place] [address] documented in this encounter Plan of Treatment Upcoming Encounters Date Type Department Care Team ([facility] st Contact Info) Description 10/06/2025 8:00 AM EST Office Visit [facility] ADULT DENTAL [address] [place] [address] Raimundo Lemus DMD [address] [place] [address] 10/26/2025 2:15 PM EST Office Visit [facility] MEDICINE [address] [place] [address] Sancho Yoon MD 230 [place] [address] 11/28/2025 9:45 AM EST Office Visit [facility] MEDICINE [address] [place] [address] 03/19/2026 8:00 AM EDT Office Visit [facility] ADULT DENTAL [address] [place] [address] Yi Sanchez documented as of this encounter Visit Diagnoses Not on filedocumented in this encounter Additional Health Concerns Assessment Noted Time PHQ-9 Depression Total Score: 3 03/23/20 23 1:07 PM EDT documented as of this encounter Care Teams Metallurgical Laboratory Assistant Relationship Specialty Start Date End Date Sancho Yoon MD 230 [place] [address] PCP - General Internal Medicine 08/16/14 Tae Kong MD [address] [place] [address] Cardiology 07/18/25 documented as of this encounter
--- OUTSIDE RECORDS SUMMARY | 2025-10-05 03:22 | XMS_ITS | Encounter Summary ---
Author Organization [employer] Address [address] [facility] 7t [place] [address] Care Team Providers Care Residential Real Estate Agent Name Role Phone Sancho Yoon MD Primary Care Provide r Tae Kong MD Unavailable [phone] Reason for Visit * Reason Comments Med Refill Encounter Details Date Type Department Care Team ([facility] st Contact Info) Description 02/08/2024 Refill [facility] MEDICINE 230 [place] [address] Sancho Yoon MD 230 [place], [place] [phone] Other chronic pain Social History Tobacco Use [...] Description 10/06/2025 8:00 AM EST Office Visit [facility] ADULT DENTAL 230 [place] [address] Raimundo Lemus DMD 230 [place] [address] 10/26/2025 2:15 PM EST Office Visit [facility] MEDICINE [address] [place] [address] Sancho Yoon MD [address] [place] [address] 11/28/2025 9:45 AM EST Office Visit [facility] MEDICINE [address] [place] [address] 03/19/2026 8:00 AM EDT Office Visit [facility] ADULT DENTAL [address] [place] [address] Yi Sanchez documented as of this encounter Visit Diagnoses Diagnosis Other chronic pain documented in this encounter Additional Health Concerns Assessment Noted Time PHQ-9 Depression Total Score: 3 03/23/20 23 1:07 PM EDT documented as of this encounter Care Teams Residential Real Estate Agent Relationship Specialty Start Date End Date Sancho Yoon MD [address] [place] [address] PCP - General Internal Medicine 08/16/14 Tae Kong MD [address] [place] [address] Cardiology 07/18/25 documented as of this encounter
--- OUTSIDE RECORDS SUMMARY | 2025-10-05 03:22 | XMS_ITS | Encounter Summary ---
Author Organization [employer] Address [address] [facility] 7t [place] [address] Care Team Providers Care Marine Engineer Name Role Phone Sancho Yoon MD Primary Care Provide r Tae Kong MD Unavailable [phone] Reason for Visit * Reason Comments Med Refill Encounter Details Date Type Department Care Team ([facility] st Contact Info) Description 10/21/2023 Refill [facility] MEDICINE [address] [place] [address] Sancho Yoon MD [address] [place], [place] [phone] Pure hypercholesterolemia Social History Tobacco Use Types [...] Visit [facility] ADULT DENTAL [address] [place] [address] Raimundo Lemus DMD [address] [place] [address] 10/26/2025 2:15 PM EST Office Visit [facility] MEDICINE [address] [place] [address] Sancho Yoon MD [address] [place] [address] 11/28/2025 9:45 AM EST Office Visit [address] [address] 03/19/2026 8:00 AM EDT Office Visit [facility] ADULT DENTAL [address] [place] [address] Yi Sanchez documented as of this encounter Visit Diagnoses Diagnosis Pure hypercholesterolemia documented in this encounter Additional Health Concerns Assessment Noted Time PHQ-9 Depression Total Score: 3 03/23/20 23 1:07 PM EDT documented as of this encounter Care Teams Marine Engineer Relationship Specialty Start Date End Date Sancho Yoon MD [address] [place] [address] PCP - General Internal Medicine 08/16/14 Tae Kong MD [address] [place] [address] Cardiology 07/18/25 documented as of this encounter
--- OUTSIDE RECORDS SUMMARY | 2025-10-05 03:22 | XMS_ITS | Encounter Summary ---
Author Organization [employer] Address [address] [facility] [address] 7t [place] [address] Care Team Providers Care Straight Slicing Machine Operator Name Role Phone Sancho Yoon MD Primary Care Provide r Tae Kong MD Unavailable [phone] Reason for Visit * Reason Comments Med Refill Encounter Details Date Type Department Care Team ([facility] st Contact Info) Description 01/24/2024 Refill [facility] 230 [place] [address] Sancho Yoon MD [address] [place], [place] [phone] Social History Tobacco Use Types Packs/Day Years [...] [facility] ADULT DENTAL [address] [place] [address] Raimundo Lemus, ANDRE [address] [place] [address] 10/26/2025 2:15 PM EST Office Visit [facility] MEDICINE [address] [place] [address] Sancho Yoon MD [address] [place] [address] 11/28/2025 9:45 AM EST Office Visit [facility] MEDICINE [address] [place] [address] 03/19/2026 8:00 AM EDT Office Visit [facility] ADULT DENTAL [address] [place] [address] Yi Sanchez documented as of this encounter Visit Diagnoses Not on filedocumented in this encounter Additional Health Concerns Assessment Noted Time PHQ-9 Depression Total Score: 3 03/23/20 23 1:07 PM EDT documented as of this encounter Care Teams Straight Slicing Machine Operator Relationship Specialty Start Date End Date Sancho Yoon MD [address] [place] [address] PCP - General Internal Medicine 08/16/14 Tae Kong MD [address] [place] [address] Cardiology 07/18/25 documented as of this encounter
--- OUTSIDE RECORDS SUMMARY | 2025-10-05 03:22 | XMS_ITS | Encounter Summary ---
Author Organization [employer] Address 75 [facility] 7t [place] [address] Care Team Providers Care Copy Messenger Name Role Phone Sancho Yoon MD Primary Care Provide r Tae Kong MD Unavailable [phone] Reason for Visit * Reason Comments Med Refill Encounter Details Date Type Department Care Team ([facility] st Contact Info) Description 10/21/2023 Refill [facility] MEDICINE [address] [place] [address] Sancho Yoon MD 230 [place], [place] [phone] Pure hypercholesterolemia Social History Tobacco Use Types [...] Description 10/06/2025 8:00 AM EST Office Visit [facility] ADULT DENTAL [address] [place] [address] Raimundo Lemus DMD [address] [place] [address] 10/26/2025 2:15 PM EST Office Visit [facility] MEDICINE [address] [place] [address] Sancho Yoon MD [address] [place] [address] 11/28/2025 9:45 AM EST Office Visit [address] [address] 03/19/2026 8:00 AM EDT Office Visit [facility] ADULT DENTAL [address] [place] [address] Yi Sanchez documented as of this encounter Visit Diagnoses Diagnosis Pure hypercholesterolemia documented in this encounter Additional Health Concerns Assessment Noted Time PHQ-9 Depression Total Score: 3 03/23/20 23 1:07 PM EDT documented as of this encounter Care Teams Copy Messenger Relationship Specialty Start Date End Date Sancho Yoon MD [address] [place] [address] PCP - General Internal Medicine 08/16/14 Tae Kong MD [address] [place] [address] Cardiology 07/18/25 documented as of this encounter
--- OUTSIDE RECORDS SUMMARY | 2025-10-05 03:22 | XMS_ITS | Encounter Summary ---
Author Organization [employer] Address [address] [facility] 7t [place] [address] Care Team Providers Care Film Processor Name Role Phone Sancho Yoon MD Primary Care Provide r Tae Kong MD Unavailable [phone] Reason for Visit * Reason Onset Date Comments Med Refill 06/27/2024 Encounter Details Date Type Department Care Team ([facility] st Contact Info) Description 06/27/2024 Telephone [facility] MEDICINE 230 [place] [address] Sancho Yoon MD 230 [place] [address] Med Refill Social History Tobacco Use Types [...] immediate release tablet To be sent to: [facility] - [place], [place] - [address] [place] [address] documented in this encounter Plan of Treatment Upcoming Encounters Date Type Department Care Team ([facility] st Contact Info) Description 10/06/2025 8:00 AM EST Office Visit [facility] ADULT DENTAL [address] [place] [address] Raimundo Lemus DMD 230 [place] [address] 10/26/2025 2:15 PM EST Office Visit [facility] MEDICINE [address] [place] [address] Sancho Yoon MD 230 [place] [address] 11/28/2025 9:45 AM EST Office Visit [facility] MEDICINE [address] [place] [address] 03/19/2026 8:00 AM EDT Office Visit [facility] ADULT DENTAL [address] [place] [address] Sanchez, Yi documented as of this encounter Visit Diagnoses Not on filedocumented in this encounter Additional Health Concerns Assessment Noted Time PHQ-9 Depression Total Score: 3 03/23/20 23 1:07 PM EDT documented as of this encounter Care Teams Film Processor Relationship Specialty Start Date End Date Sancho Yoon MD 230 [place] [address] PCP - General Internal Medicine 08/16/14 Tae Kong MD [address] [place] [address] Cardiology 07/18/25 documented as of this encounter
--- OUTSIDE RECORDS SUMMARY | 2025-10-05 03:22 | XMS_ITS | Encounter Summary ---
Author Organization [employer] Address [address] [facility] 7t [place] [address] Care Team Providers Care Integrity Manager Name Role Phone Sancho Yoon MD Primary Care Provide r Tae Kong MD Unavailable [phone] Reason for Visit * Reason Onset Date Comments New Med Request 09/01/2023 Encounter Details Date Type Department Care Team ([facility] st Contact Info) Description 09/01/2023 Telephone [facility] MEDICINE [address] [place] [address] Sancho Yoon MD 230 [place] [address] New Med Request Social History Tobacco Use [...] 09/08/2023 8:54 AM EDT Received call from [facility] Coumadin clinic regarding INR, spoke to iY. Pt having a hip injection done today, [...] procedure on 09/08/2023. Any questions contact pt. Vietnamese speaker documented in this encounter Plan of Treatment Upcoming Encounters Date Type Department Care Team (Late st Contact Info) Description 10/06/2025 8:00 AM EST Office Visit [facility] ADULT DENTAL [address] [place] [address] Raimundo Lemus, ANDRE [address] [place] [address] 10/26/2025 2:15 PM EST Office Visit [facility] MEDICINE [address] [place] [address] [place] [address] Sancho Yoon MD [facility] [place] [address] 11/28/2025 9:45 AM EST Office Visit [facility] MEDICINE [address] [place] [address] 03/19/2026 8:00 AM EDT Office Visit [facility] ADULT DENTAL [address] [place] [address] Yi Sanchez documented as of this encounter Visit Diagnoses Not on filedocumented in this encounter Additional Health Concerns Assessment Noted Time PHQ-9 Depression Total Score: 3 03/23/20 23 1:07 PM EDT documented as of this encounter Care Teams Integrity Manager Relationship Specialty Start Date End Date Sancho Yoon MD [address] [place] [address] PCP - General Internal Medicine 08/16/14 Tae Kong MD [address] [place] [address] Cardiology 07/18/25 documented as of this encounter
--- OUTSIDE RECORDS SUMMARY | 2025-10-05 03:22 | XMS_ITS | Encounter Summary ---
Author Organization [employer] Address [address] [place] [address] 7t [place] [address] Care Team Providers Care Box Chipper Name Role Phone Sancho Yoon MD Primary Care Provide r Tae Kong MD Unavailable [phone] Encounter Details Date Type Department Care Team (Late Contact Info) Description 07/28/2023 Abstract [facility] ADULT DENTAL [address] [place] [address] Mildred Duran [address] [place] [address] Social History Tobacco Use Types Packs/Day Years [...] Department Care Team (Late Contact Info) Description 10/06/2025 8:00 AM EST Office Visit [facility] ADULT DENTAL [address] [place] [address] Raimundo Lemus DMD [address] [place] [address] 10/26/2025 2:15 PM EST Office Visit [facility] MEDICINE [address] [place] [address] Sancho Yoon MD [address] [place] [address] 11/28/2025 9:45 AM EST Office Visit [facility] MEDICINE [address] [place] [address] 03/19/2026 8:00 AM EDT Office Visit [facility] ADULT DENTAL [address] [place] [address] Yi Sanchez documented as of this encounter Visit Diagnoses Not on filedocumented in this encounter Additional Health Concerns Assessment Noted Time PHQ-9 Depression Total Score: 3 03/23/20 23 1:07 PM EDT documented as of this encounter Care Teams Box Chipper Relationship Specialty Start Date End Date Sancho Yoon MD [address] [place] [address] PCP - General Internal Medicine 08/16/14 Tae Kong MD [address] [place] [address] Cardiology 07/18/25 documented as of this encounter
--- OUTSIDE RECORDS SUMMARY | 2025-10-05 03:22 | XMS_ITS | Encounter Summary ---
Author Organization [employer] Address 75 [facility] 7t [place] [address] Care Team Providers Care Exhibit Preparator Name Role Phone Sancho Yoon MD Primary Care Provide r Tae Kong MD Unavailable [phone] Encounter Details Date Type Department Care Team (Latest Contact Info) Description 04/16/2021 Abstract [facility] CONVERSIONS Dental, Provider, DDS Social History Tobacco [...] Description 10/06/2025 8:00 AM EST Office Visit [facility] ADULT DENTAL [address] [place] [address] Raimundo Lemus, ANDRE [address] [place] [address] 10/26/2025 2:15 PM EST Office Visit [facility] MEDICINE [address] [place] [address] Sancho Yoon MD 230 [place] [address] 11/28/2025 9:45 AM EST Office Visit [facility] MEDICINE [address] [place] [address] 03/19/2026 8:00 AM EDT Office Visit [facility] ADULT DENTAL [address] [place] [address] Yi Sanchez documented as of this encounter Visit Diagnoses Not on filedocumented in this encounter Care Teams Exhibit Preparator Relationship Specialty Start Date End Date Sancho Yoon MD [address] [place] [address] PCP - General Internal Medicine 08/16/14 Tae Kong MD [address] [place] [address] Cardiology 07/18/25 documented as of this encounter
--- OUTSIDE RECORDS SUMMARY | 2025-10-05 03:22 | XMS_ITS | Encounter Summary ---
Author Organization [employer] Address 75 [facility] 7t [place] [address] Care Team Providers Care Manager Sharepoint Name Role Phone Sancho Yoon MD Primary Care Provide r Tae Kong MD Unavailable [phone] Reason for Visit * Reason Comments Med Refill Encounter Details Date Type Department Care Team ([facility] st Contact Info) Description 08/19/2023 Refill [facility] MEDICINE [address] [place] [address] Sancho Yoon MD [address] [place] [address] Social History Tobacco Use Types Packs/Day Years [...] Description 10/06/2025 8:00 AM EST Office Visit [facility] ADULT DENTAL [address] [place] [address] Raimundo Lemus DMD [address] [place] [address] 10/26/2025 2:15 PM EST Office Visit [facility] MEDICINE [address] [place] [address] Sancho Yoon MD [address] [place] [address] 11/28/2025 9:45 AM EST Office Visit [facility] MEDICINE [address] [place] [address] 03/19/2026 8:00 AM EDT Office Visit [facility] ADULT DENTAL [address] [place] [address] Yi Sanchez documented as of this encounter Visit Diagnoses Not on filedocumented in this encounter Additional Health Concerns Assessment Noted Time PHQ-9 Depression Total Score: 3 03/23/20 23 1:07 PM EDT documented as of this encounter Care Teams Manager Sharepoint Relationship Specialty Start Date End Date Sancho Yoon MD [address] [place] [address] PCP - General Internal Medicine 08/16/14 Tae Kong MD [address] [place] [address] Cardiology 07/18/25 documented as of this encounter
--- OUTSIDE RECORDS SUMMARY | 2025-10-05 03:22 | XMS_ITS | Encounter Summary ---
Author Organization [employer] Address [address] [facility] 7t [place] [address] Care Team Providers Care Masonry Installer Name Role Phone Sancho Yoon MD Primary Care Provide r Tae Kong MD Unavailable [phone] Encounter Details Date Type Department Care Team (Latest Contact Info) Description 10/26/2019 Abstract [facility] CONVERSIONS Dental, Provider, DDS Social [...] Department Care Team ( Contact Info) Description 10/06/2025 8:00 AM EST Office Visit [facility] ADULT DENTAL [address] [place] [address] Raimundo Lemus DMD [address] [place] [address] 10/26/2025 2:15 PM EST Office Visit [facility] MEDICINE [address] [place] [address] Sancho Yoon MD [address] [place] [address] 11/28/2025 9:45 AM EST Office Visit [facility] [address] [place] [address] 03/19/2026 8:00 AM EDT Office Visit [facility] ADULT DENTAL [address] [place] [address] Yi Sanchez documented as of this encounter Visit Diagnoses Not on filedocumented in this encounter Care Teams Masonry Installer Relationship Specialty Start Date End Date Sancho Yoon MD [address] [place] [address] PCP - General Internal Medicine 08/16/14 Tae Kong MD [address] [place] [address] Cardiology 07/18/25 documented as of this encounter
--- OUTSIDE RECORDS SUMMARY | 2025-10-05 03:22 | XMS_ITS | Encounter Summary ---
Author Organization [employer] Address [address] [facility] 7t [place] [address] Care Team Providers Care Electrician Control Equipment Name Role Phone Sancho Yoon MD Primary Care Provide r Tae Kong MD Unavailable [phone] Reason for Visit * Reason Comments Med Refill Encounter Details Date Type Department Care Team ([facility] st Contact Info) Description 05/02/2024 Refill [facility] CHC MED & PEDS [address] [place], [place] [phone] Sancho Yoon MD [address] [place] [address] Other chronic pain Social History Tobacco Use [...] Description 10/06/2025 8:00 AM EST Office Visit [facility] ADULT DENTAL [address] [place] [address] Raimundo Lemus DMD [address] [place] [address] 10/26/2025 2:15 PM EST Office Visit [facility] MEDICINE [address] [place] [address] Sancho Yoon MD [address] [place] [address] 11/28/2025 9:45 AM EST Office Visit [facility] MEDICINE [address] [place] [address] 03/19/2026 8:00 AM EDT Office Visit [facility] ADULT DENTAL [address] [place] [address] Yi Sanchez documented as of this encounter Visit Diagnoses Diagnosis Other chronic pain documented in this encounter Additional Health Concerns Assessment Noted Time PHQ-9 Depression Total Score: 3 03/23/20 23 1:07 PM EDT documented as of this encounter Care Teams Electrician Control Equipment Relationship Specialty Start Date End Date Sancho Yoon MD [address] [place] [id number] PCP - General Internal Medicine 08/16/14 Tae Kong MD [address] [place] [address] Cardiology 07/18/25 documented as of this encounter
--- OUTSIDE RECORDS SUMMARY | 2025-10-05 03:23 | XMS_ITS | Encounter Summary ---
Author Organization [employer] Address [address] [facility] 7t [place] [address] Care Team Providers Care Professional Architect Name Role Phone Sancho Yoon MD Primary Care Provide r Tae Kong MD Unavailable [phone] Reason for Visit * Reason Comments Med Refill Encounter Details Date Type Department Care Team ([facility] st Contact Info) Description 11/04/[address] [facility] MEDICINE [address] [place] [address] Sancho Yoon MD [address] [place] [address] Erectile dysfunction, unspecified erectile dysfunction type Social [...] Description 10/06/2025 8:00 AM EST Office Visit [facility] ADULT DENTAL [address] [place] [address] Raimundo Lemus, DMD [address] [place] [address] 10/26/2025 2:15 PM EST Office Visit [facility] MEDICINE [address] [place] [address] Sancho Yoon MD [address] [place] [address] 11/28/2025 9:45 AM EST Office Visit [facility] MEDICINE [address] [place] [address] 03/19/2026 8:00 AM EDT Office Visit [facility] ADULT DENTAL [address] [place] [address] Yi Sanchez documented as of this encounter Visit Diagnoses Diagnosis Erectile dysfunction, unspecified erectile dysfunction type documented in this encounter Additional Health Concerns Assessment Noted Time PHQ-9 Depression Total Score: 0 09/29/20 24 9:48 AM EST documented as of this encounter Care Teams Professional Architect Relationship Specialty Start Date End Date Sancho Yoon MD [address] [place] [address] PCP - General Internal Medicine 08/16/14 Tae Kong MD [address] [place] [address] Cardiology 07/18/25 documented as of this encounter
--- OUTSIDE RECORDS SUMMARY | 2025-10-05 03:23 | XMS_ITS | Encounter Summary ---
Author Organization [employer] Address [address] [facility] 7t [place] [address] Care Team Providers Care Liquor Rectifier Name Role Phone Sancho Yoon MD Primary Care Provide r Tae Kong MD Unavailable [phone] Reason for Visit * Reason Comments Med Refill Encounter Details Date Type Department Care Team ([facility] st Contact Info) Description 10/17/2024 Refill [facility] CHC MED & PEDS [address] [place], [place] [phone] Sancho Yoon MD [address] [place] [address] Other chronic pain Social History Tobacco Use [...] 8:00 AM EST Office Visit [facility] ADULT DENTAL [address] [place] [address] Raimundo Lemus, ANDRE [address] [place] [address] 10/26/2025 2:15 PM EST Office Visit [facility] MEDICINE [address] [place] [address] Sancho Yoon MD [address] [place] [address] 11/28/2025 9:45 AM EST Office Visit [facility] MEDICINE [address] [place] [address] 03/19/2026 8:00 AM EDT Office Visit [facility] ADULT DENTAL [address] [place] [address] Yi Sanchez documented as of this encounter Visit Diagnoses Diagnosis Other chronic pain documented in this encounter Additional Health Concerns Assessment Noted Time PHQ-9 Depression Total Score: 0 09/29/20 24 9:48 AM EST documented as of this encounter Care Teams Liquor Rectifier Relationship Specialty Start Date End Date Sancho Yoon MD [address] [place] [address] PCP - General Internal Medicine 08/16/14 Tae Kong MD [address] [place] [address] Cardiology 07/18/25 documented as of this encounter
--- OUTSIDE RECORDS SUMMARY | 2025-10-05 03:23 | XMS_ITS | Clinical Summary ---
Author Organization [employer] Address [address] [facility] [address] [place] [address] Care Team Providers Care Commissary Superintendent Name Role Phone Sancho Yoon MD Primary Care Provide r Tae Kong MD Unavailable [phone] Allergies No known active allergies Medications * [...] daily. 60 tablet 2 025 06/08 Active amLODIPine (Norvasc) 5 MG tablet Take 1 tablet (5 mg) by mouth Once per day. 30 tablet 2 025 Active naloxone (Narcan) 4 mg/0.1 mL nasal spray Administer 1 spray (4 mg) into affected nostril(s) if needed for opioid reversal. 2 each 1 Active lisinopril 10 MG tabletIndications:Esse ntial hypertension TAKE 1 TABLET BY MOUTH EVERY MORNING 90 tablet 1 Active rosuvastatin (Crestor) 5 MG tabletIndications:Pure hypercholesterolemia TAKE 1 TABLET BY MOUTH AT BEDTIME 90 tablet Active oxyCODONE (Roxicodone) 5 MG immediate release tabletIndications:Lap Layer linnea right-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 84 tablet 10/04/20 25 10:16 AM EST 025 11/01 Active lisinopril 10 MG tabletIndications:Esse ntial hypertension TAKE 1 TABLET BY MOUTH EVERY DAY IN THE MORNING 90 tablet 1 025 09/08 Discontinued rosuvastatin (Crestor) 5 MG tabletIndications:Pure hypercholesterolemia TAKE 1 TABLET BY MOUTH AT BEDTIME 90 tablet 025 09/28 Discontinued oxyCODONE (Roxicodone) 5 MG immediate release tabletIndications:Lap Layer linnea right-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 Do not start before September 05, 2025. 84 tablet 025 10/02 Discontinued( Reorder (will not trigger notification to Pharmacy)) Active Problems Problem Noted Date Diagnosed Date Right leg DVT (CMS/HCC) 06/08/2025 Acute pulmonary embolism (CMS/HCC) 06/08/2025 Assessment & Plan (08/01/2025 1:35 PM EDT): On Lilia now. 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 [facility] health care 03/23/2023 Assessment & Plan (08/01/2025 [...] IVC filter and on warfarin -f at [place] war[facility] -from records last INR 03/14/2023 [...] (10/23/2022 9:16 AM EST): Dx initially in [place], on exam ? small inguinal hernia pt [...] since 2000. He was evaluated extensively by computer support specialist instructor Dr. Beck who did a hypercoagulable work [...] since 2000. He was evaluated extensively by computer support specialist instructor Dr. Beck who did a hypercoagulable work [...] since 2000. He was evaluated extensively by computer support specialist instructor Dr. Beck who did a hypercoagulable work [...] since 2000. He was evaluated extensively by computer support specialist instructor Dr. Beck who did a hypercoagulable work up that was unrevealing, although she believes pt has a hypercoagulable state and needs to be on coumadin life long. Pt continues to follow at the coumadin clinic Last INR was therapeutic. 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 On coumadin since 2000. Evaluated extensively by computer support specialist instructor Dr. Beck who did a hypercoagulable work [...] right-karli ed sciatica 07/05/2015 Assessment & Plan (09/26/2025 1:48 PM EST): -Good engagement and participation with Group Medical Visit model -Encouraged multifactorial approach to pain control including pharm and non- pharm modalities -UTOX/pill count as expected. Assessment & Plan (06/27/2025 2:25 PM EDT): [...] -UTOX as expected. Pill count discrepancy. See mushroom spawn maker. Assessment & Plan (03/30/2025 12:09 PM EDT): [...] with partial results. PT was referred to [facility] for evaluation and conservative treatment modalities. 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 pt now has a Narcotic contract with us. Pt was referred to [facility] s/p epidural injection. With excellent [...] with partial results. PT was referred to [facility] for evaluation and conservative treatment modalities. 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 pt now has a Narcotic contract with us. Pt was referred to [facility] s/p epidural injection. With excellent [...] contract with us. Pt was referred to [facility] and is already scheduled for [...] PRN, Continue Oxycodone as prescribed Referred to [facility] Pt agreeable with plan Pt gives a Hx of chronic low back pain x 15 years. Had an accident at work fell of a a ladder) 20 years ago. Has had PT in the past with partial results. PT was referred to [facility] for evaluation and conservative treatment modalities. He [...] with partial results. PT was referred to [facility] for evaluation and conservative treatment modalities. He [...] for a HDF He was admitted to [facility] from 07/15-07/17 for YUKI, orthostatic syncope and [...] fine, no longer feels dizzy Fracture, maxillary ([facility]) 07/21/2023 01/26/2025 Assessment & Plan (07/30/2023 4:02 PM EDT): Ct done at [facility] 07/15/2023 showed: fracture of anterior wall of left maxillary sinus and left side of nasal bone with minimal displacement Pt was referred to the maxillofacial surgeon. I contacted them today they told me they had misfiled his referral, the abrasives sales representative of the office told me [...] Encounters Date Type Department Care Team Description 10/02/2025 Refill [facility] [address] [place], [place] [phone] 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 RN Chronic right-sided low back pain with right-sided sciatica 10/02/[address] [address] Sancho Yoon MD Med Refill 09/28/[address] [address] Kim Wise ANP Pure hypercholesterolemia 09/26/2025 9:45 AM EST Office Visit [facility] [address] [place] [phone] Janis Cm, NESTOR Chronic right-sided low back pain with right-sided sciatica (Primary Dx); Long-term current use of opiate analgesic 09/26/2025 Travel 09/18/2025 8:00 AM EST Office Visit [facility] ADULT DENTAL [address] [place] [phone] Yi Sanchez Dental calculus (Primary Dx); Encounter for dental examination; Dental plaque; Teeth missing 09/18/[address] [address] Sancho Yoon MD Referral 09/15/2025 Patient Outreach [address] [address] Sancho Yoon MD Transition Of Care (Tcm) (HDF unscheduled LVM ) 09/06/2025 Refill [facility] [address] [place] [address] Sancho Yoon MD Essential hypertension 09/04/2025 Refill [facility] [address] [place] [address] 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 RN Chronic right-sided low back pain with right-sided sciatica 09/04/2025 Telephone [facility] [address] [place] [address] Sancho Yoon MD Med Refill 08/23/2025 Refill [facility] [address] [place] [address] Sancho Yoon MD 08/18/2025 11:20 AM EDT Office Visit [facility] [address] [place] [address] Otilio Del Toro MD Cough in adult patient 08/18/2025 Travel 08/08/2025 Refill [facility] & PEDS [address] [place] [address] Miesha Schwartz, Chronic right-sided low back pain with right-sided sciatica 08/07/2025 Refill [facility] [address] [place] [address] Miesha Schwartz, DO Chronic right-sided low back pain with right-sided sciatica 08/04/2025 Telephone [facility] [address] [place] [address] Sancho Yoon MD Med Refill 08/02/2025 Orders Only [facility] [address] [place] [address] Sancho Yoon MD 08/01/2025 1:15 PM EDT Office Visit [facility] [address] [place] [address] Sancho Yoon MD Essential hypertension (Primary Dx); Other acute pulmonary embolism, unspecified whether acute cor pulmonale present ([facility]); Preventative health care; Chronic anticoagulation; Pure hypercholesterolemia 08/01/2025 Travel 07/31/2025 Telephone [facility] [address] [place] [phone] Sancho Yoon MD chart prep 07/24/2025 Patient Outreach [address] [phone] Sancho Yoon MD Pre-visit Planning (SDOH Screening negative and Tobacco screening negative) 07/18/2025 Telephone [facility] [address] [place], [place] [phone] Huong Hurtado, ELISEO Results; Interoffice Coordination 07/07/2025 Refill [facility] [address] [place], [place] [phone] 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 RN Chronic right-sided low back pain with right-sided sciatica 07/07/2025 Telephone [facility] [address] [place], [place] [phone] Sancho Yoon MD from Last 3 Months Immunizations Immunization Administration [...] Sign Reading Time Taken Comments Blood Pressure 162/87 09/18/2025 8:13 AM EST Pulse 75 08/18/2025 11:18 AM EDT Temperature [...] 10/06/2025 8:00 AM EST Office Visit [facility] AD[facility] D[facility] [address] [place] [address] Raimundo Lemus DMD [address] [place] [address] 10/26/2025 2:15 PM EST Office Visit [facility] [address] [place] [address] Sancho Yoon MD [address] [place] [address] 11/28/2025 9:45 AM EST Office Visit [facility] [address] [place] [address] 03/19/2026 8:00 AM EDT Office Visit [facility] AD[facility] [address] [place] [address] Yi Sanchez Health Maintenance Due Date Last Done Comments CT Colonography 1954 FIT DNA/Cologuard 1954 FIT 1954 FOBT 1954 Sigmoidoscopy 1954 Alcohol/Substance Use Screening 1966 Hepatitis A Vaccines (2 of 2 - Risk 2-dose series) 12/04/2002 06/03/2002 Hepatitis B Vaccines (3 of 3 - Risk 3-dose series) 01/22/2010 09/26/2009, 07/25/2009 COVID-19 Vaccine ( season) 2025 09/29/2024, 09/10/2023, 08/22/2022, Additional history exists Depression Screening 09/29/2025 09/29/2024, 09/29/20 24 Dental Oral Exam 03/19/2026 09/18/2025, , 09/07/2024, Additional history exists Dental Prophylaxis 03/19/2026 09/18/2025, 0 03/15/2025, 09/07/2024, Additional history exists Dental X-Ray: Full Mouth 07/23/2026 07/22/2023, 10/16 SDOH Screening 07/24/2026 07/24/2025 Tobacco Screening 09/18/2026 09/18/2025 Dental X-Ray: Bitewings 09/19/2026 09/18/20 25, 09/07/2024, 07/22/2023, Additional history exists Colonoscopy 02/17/2027 02/17/2022 Colorectal Cancer Screening 02/17/2027 [...] Comments POCT DU-14 URINE DRUG SCREEN Routine 09/26/2025 10:16 AM EST Long-term current use of opiate analgesic PERIODIC ORAL EVALUATION - ESTABLISHED PATIENT Routine 09/18/2025 8:00 AM EST Dental calculus Encounter for dental examination Dental plaque Teeth missing BITEWINGS - 4 RADIOGRAPHIC IMAGES Routine 09/18/2025 8:00 AM EST ORAL HYGIENE INSTRUCTIONS Routine 09/18/2025 8:00 AM EST Dental calculus PROPHYLAXIS - ADULT Routine 09/18/2025 8 :00 AM EST Dental calculus CASE PRESENTATION, DETAILED AND EXTENSIVE TREATMENT PLANNING Routine 09/18/2025 8:00 AM EST POCT INFLUENZA B (ID NOW RAPID [...] 08/02/2025 8:56 AM EDT Preventative health care INTRAORAL - COMPLETE SERIES OF RADIOGRAPHIC IMAGES Routine 07/22/2023 3:00 PM EDT Periodontal disease Dental calculus HM COLONOSCOPY Routine 02/17/2022 from Last 3 Months or Most Recently Relevant to Health Maintenance Results * (ABNORMAL) POCT DU-14 Urine Drug Screen (09/26/2025 10:16 AM EST) THC Negative Negative Cocaine Screen, Urine Negative Negative Opiate Screen, Urine Negative Negative Methamphetamine Screen Urine Negative Negative Amphetamine Screen, Urine Negative Negative Benzodiazepines Screen, Urine Negative Negative Barbiturate Screen, Urine Negative Negative Methadone Screen, Urine Negative Negative Buprenophine Screen, Urine Negative Negative TCA, Urine Negative Negative MDMA Urine Negative Negative ng/mL Oxycodone Screen, Urine Positive(A) Negative Comment: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 10/16/26 Internal Pass Control Janis BAEZ POINT OF CARE TEST ENTER/EDIT ORDERABLES Final Result * Influenza B (ID NOW Rapid Molecular) (08/18/2025 11:32 AM EDT) Influenza B Negative Negative, Indeterminate [facility] Swab 08/18/2025 11:3 2 AM EDT Otilio Del Toro MD POINT OF CARE TEST ENTER/EDIT OR DERABLES Final Result [facility] [address] [place] [phone] * Influenza A (ID NOW Rapid Molecular) (08/18/2025 11:32 AM EDT) [facility] Influenza A Negative Negative, Indeterminate [facility] Swab 08/18/2025 11:3 2 AM EDT Otilio Del Toro MD POINT OF CARE TEST ENTER/EDIT OR DERABLES Final Result [facility] [address] [place] [address] [phone] * POCT Rapid COVID Ag (08/18/2025 11:22 AM EDT) [facility] Rapid COVID Ag Negative Swab 08/18/2025 11:2 2 AM EDT Otilio Del Toro MD POINT OF CARE TEST ENTER/EDIT OR DERABLES Final Result * PSA, Screen (08/02/2025 8:56 AM EDT) [facility] PSA, Total 2.01 <0.05 - 4.0 ng/mL [facility] Comment:PSA methodology: Magno Lackey i ChemiluminescentMicroparticle Immunoassay (CMIA) Blood Venous blood specimen / Unknown 08/02/2025 8:56 AM EDT 08/02/2025 8:56 AM EDT Sancho Mayberry MD LAB BLOOD ORDERABLES Final Result Performing Organization Address City/[facility]/ZIP Co de Phone Number [facility] [address] [place] [phone] [phone] * (ABNORMAL) CBC auto differential (08/02/2025 8:56 AM EDT) [facility] White Blood Count 4.9 4.8 - 10.8 X10*3/uL [facility] Red Blood Count 4.51(L) 4.60 - 5.80 X10*6/uL [facility] Hemoglobin 13.8(L) 14.0 - 18.0 g/dl [facility] Hematocrit 40.9(L) 42.0 - 52.0 % [facility] Mean Corpuscular Volume 90.7 80.0 - 98.0 fL [facility] Mean Corpuscular Hemoglobin 30.6 27.0 - 33.0 pg [facility] Mean Corpuscular HGB Conc 33.7 31.0 - 36.0 g/dl [facility] Red Cell Distribution Width 13.2 11.0 - 16.0 % [facility] Platelet Count 214 160 - 400 X10*3/uL [facility] Mean Platelet Volume 10.2 9.4 - 12.4 fL [facility] Neutrophils Percent Auto 35.2(L) 45 - 73 % [facility] Imm Gran Pct Auto 0.2 0.0 - 0.4 % [facility] Lymphocytes Percent Auto 49.6(H) 20 - 40 % [facility] Monocytes Percent Auto 9.3 2 - 11 % [facility] Eosinophils Percent Auto 5.1(H) 0 - 4 % [facility] Basophils Percent Auto 0.6 0 - 2 % [facility] NRBC Pct Auto 0.0 0.0 - 0.2 /100WBC [facility] Neutrophils Absolute Auto 1.7(L) 2.0 - 8.3 x10*3/uL [facility] Imm Gran Abs Auto 0.01 0.00 - 0.03 X10*3/uL [facility] Lymphocytes Absolute Auto 2.4 1.2 - 4.9 X10*3/uL [facility] Monocytes Absolute Auto 0.5 0.1 - 1.2 X10*3/uL [facility] Eosinophils Absolute Auto 0.3 0.0 - 0.4 X10*3/uL [facility] Basophils Absolute Auto 0.0 0.0 - 0.2 X10*3/uL [facility] NRBC Abs Auto 0.000 0.0 - 0.012 X10*3/uL [facility] 08/02/2025 8:56 AM EDT 08/02/2025 8:56 AM EDT Sancho Mayberry MD LAB BLOOD ORDERABLES Final Result Performing Organization Address City/[facility]/ZIP Co de Phone Number [facility] [address] [place] [phone] * Uric acid (08/02/2025 8:56 AM EDT) Uric Acid 4.9 3.4 - 7.0 mg/dL [facility] 08/02/2025 8:56 AM EDT 08/02/2025 8:56 AM EDT Sancho Mayberry MD LAB BLOOD ORDERABLES Final Result Performing Organization Address [facility]/[employer] Co de Phone Number [facility] [address] [place] [phone] * (ABNORMAL) Lipid Panel, Standard (08/02/2025 8:56 AM EDT) Triglycerides 224(H) <150 mg/dL [facility] Comment:Desirable Triglyceri de: less than 150 mg/dLBorderline High Triglyceride 150-199 mg/dLHigh Triglyceride: 200-499 mg/dLVery High Triglyceride: greater than or equal to 5OO mg/dL Cholesterol 163 <200 mg/dL [facility] Comment:Desirable Cholestero l: less than 200 mg/dLBorderline High Cholesterol: 200-239 mg/dLHigh Cholesterol: greater than 239 mg/dL LDL Cholesterol Calculated 81 <100 mg/dL [facility] Comment:Desirable LDL: less than 100 mg/dLNear Optimal/Above Optimal LDL: 110- 129 mg/dLBorderline High LDL: 130-159 mg/dLHigh LDL: 160-189 mg/dLVery High LDL: greater than or equal to 190 mg/dL HDL Cholesterol 38(L) >40 mg/dL [facility] Comment:Desirable HDL: great er than 40 mg/dL Note: This HDL assay may give artificially low results in patients with liver disease. Blood Venous blood specimen / Unknown 08/02/2025 8:56 AM EDT 08/02/2025 8:56 AM EDT Sacnho Mayberry MD LAB BLOOD ORDERABLES Final Result [facility] [address] [place] [phone] * Colonoscopy (02/17/2022) Colonoscopy performed us Historical Provider HEALTH MAINTENANCE Edited Result - Final from Last 3 Months or Most Recently Relevant to Health Maintenance Insurance [facility] OPTIONS (HMO D-SNP) [facility] STAND[facility] - [facility] Care Teams Commissary Superintendent Relationship Specialty Start Date End Date Sancho Yoon MD [address] [place] [address] PCP - General Internal Medicine 08/16/14 Tae Kong MD [address] [place] [address] Cardiology 07/18/25
--- OUTSIDE RECORDS SUMMARY | 2025-10-05 03:23 | XMS_ITS | Encounter Summary ---
Author Organization [email or web address] Address [address] [place] [address] Care Team Providers Care [employer] Name Role Phone Sancho Yoon MD Primary Care Provide r Tae Kong MD Unavailable [phone] Encounter Details Date Type Department Care Team ([facility] st Contact Info) Description 11/14/2024 Telephone [facility] [address] [place], [place] [phone] Sancho Yoon MD [address] [place] [address] Social History Tobacco Use Types Packs/Day Years [...] Description 10/06/2025 8:00 AM EST Office Visit [facility] ADULT DENTAL [address] [place] [address] Raimundo Lemus, ANDRE [address] [place] [address] 10/26/2025 2:15 PM EST Office Visit [facility] MEDICINE [address] [place] [phone] Sancho Yoon MD [address] [place] [address] 11/28/2025 9:45 AM EST Office Visit [facility] [address] [place] [phone] 03/19/2026 8:00 AM EDT Office Visit [facility] ADULT DENTAL [address] [place] [address] Yi Sanchez documented as of this encounter Visit Diagnoses Not on filedocumented in this encounter Additional Health Concerns Assessment Noted Time PHQ-9 Depression Total Score: 0 09/29/20 24 9:48 AM EST documented as of this encounter Care Teams [employer] Relationship Specialty Start Date End Date Sancho Yoon MD [address] [place] [address] [place] [address] PCP - General Internal Medicine 08/16/14 Tae Kong MD [address] [place] [address] Cardiology 07/18/25 documented as of this encounter
--- OUTSIDE RECORDS SUMMARY | 2025-10-05 03:23 | XMS_ITS | Encounter Summary ---
Author Organization [employer] Address [address] [facility] [address] [place] [address] Care Team Providers Care Front End Developer Designer Name Role Phone Sancho Yoon MD Primary Care Provide r Tae Kong MD Unavailable [phone] Reason for Visit * Reason Comments Med Refill Encounter Details Date Type Department Care Team ([facility] Contact Info) Description 11/18/2023 Refill [facility] [address] [place], [place] [phone] Chad Foley MD [address] [place] [address] Social History Tobacco Use Types Packs/Day Years [...] Description 10/06/2025 8:00 AM EST Office Visit [facility] [address] [place] [address] Raimundo Lemus DMD [address] [place] [address] 10/26/2025 2:15 PM EST Office Visit [facility] [address] [place] [address] Sancho Yoon MD [address] [place] [address] 11/28/2025 9:45 AM EST Office Visit [facility] [address] [place] [address] 03/19/2026 8:00 AM EDT Office Visit [facility] [address] [place] [address] Yi Sanchez documented as of this encounter Visit Diagnoses Not on filedocumented in this encounter Additional Health Concerns Assessment Noted Time PHQ-9 Depression Total Score: 3 03/23/20 23 1:07 PM EDT documented as of this encounter Care Teams Front End Developer Designer Relationship Specialty Start Date End Date Sancho Yoon MD [address] [place] [address] PCP - General Internal Medicine 08/16/14 Tae Kong MD [address] [place] [address] Cardiology 07/18/25 documented as of this encounter
== END 2025-10-04 15:02 | disposition home or self-care (01) ==
LOC: HO.HGS 14:50
PROVIDERS: PCP Internal Medicine; Referring Provider Internal Medicine; Visit Provider Surgery
DX: L72.0 Epidermal cyst (principal)
CPT/HCPCS: 99203

== ENCOUNTER → 2025-10-04 14:49 | Outpatient (BNVA) | payer OTHER, SELFPAY | PROVIDERS: PCP Internal Medicine; Referring Provider Internal Medicine; Visit Provider Surgery | DX: L72.0 Epidermal cyst (principal) | CPT/HCPCS: 99202 ==

== ENCOUNTER 2025-10-26 14:50 | Outpatient (REF) | payer OTHER, SELFPAY ==
--- OUTSIDE RECORDS SUMMARY | 2024-12-22 04:00 | XMS_ITS ---
Author Organization [facility] Address [address] [place] [address] Care Team Providers Care Winch Runner Name Role Phone Raman Mayberry MD, Sancho Primary Care Provide Joshua Harvey [phone] REASON FOR VISIT Patient presents today for hx hep c Encounters Encounter Location Date Provider Diagnosis [facility] [address] [place] [address] 12/22/2024 Joshua Valdivia Plan Of Treatment Next Appt Details Provider Name:Joshua Valdivia , 05/01/2026 09:30:00 AM, [address], [address], [place], [address], Progress Notes * FELIX VENANCIO SUAREZDOB:[birth year] (69 yo M)Acc No.[id number]:12/22/2024 Progress Notes Patient: Jen YU DANIELA VENANCIO Provider: Jen Valdivia MD :1955 A ge:69 Y S ex:Male Date:12/22/2024 Address:[address], [place], [place] Pcp:Sancho sandhu MD Subjective: * Chief Complaints: * P atient presents today for hx hep c * The named appointment provid er may or may not be the originator of this progress note, and it is not deemed complete until electronically signed by the appointment provider. Sign off status: Pending * Provider: Jen Valdivia MD Date: 0 12/22/2024 Generated for Jayla pollock/Megha/Arnieitting on: 1 12/27/2024 02:16 PM EST
--- OUTSIDE RECORDS SUMMARY | 2025-10-26 14:15 | XMS_ITS | Encounter Summary ---
Author Organization [employer] Address [address] [place] [address] 7t [place] [address] Care Team Providers Care Personal Financial Advisor Name Role Phone Sancho Yoon MD Primary Care Provide r Tae Kong MD Unavailable [phone] Reason for Referral * (Routine) - Authorized Specialty Diagnoses / Procedures Referred By Contac t Referred To Contact Diagnoses Encounter for immunization Procedures COVID-19 VACCINE [id number] (Comirnaty) 19 yrs + Sancho Yoon MD [address] [place] [phone] Phone: tel: fax: Referral ID Status Reason Start Date Expiration Date V isits Requested Visits Authorized [id number] Authorized 10/26/2025 10/26/2026 1 1 Reason for Visit * Reason Comments Follow-up Encounter Details Date Type Department Care Team (Late st Contact Info) Description 10/26/2025 2:15 PM EST Office Visit [facility] [address] [place] [address] [phone] Sancho Yoon MD [address] [place] [address] [phone] Essential hypertension (Primary Dx); Pure hypercholesterolemia; Hypernatremia; Chronic anticoagulation; Presence of inferior vena cava filter; Chronic right-sided low back pain with right-sided sciatica; Preventative health care; Encounter for immunization Social History Tobacco Use Types Packs/Day Years Used Date Smoking Tobacco: Never Passive Smoke Exposure: Never Smokeless Tobacco: Never Tobacco Cessation:Counseling Given: Not Answered Alcohol Use Standard Drinks/Week Comments Not Currently 0 (1 standard drink = 0.6 oz pur e alcohol) Alcohol Answer Date Recorded How often do you have a drink containing alcohol ? 0 10/26/2025 How many drinks containing a lcohol do you have on a typical day when you are drinking? 0 10/26/2025 How often do you have six or more drinks on one occasion? 0 10/26/2025 Depression Answer Date Recorded Patient Health Questionnaire-9 Score 0 10/26/2025 Patient Health Questionnaire-9 Score 0 10/26/2025 Last PHQ-9: Questionnaire Data Not on file 1 12/27/2024 Housing Stability Answer Date Recorded What is [...] Date Recorded Patient Health Questionnaire-2 Score 0 10/26/2025 Internet Access Answer Date Recorded Internet Access [...] Sign Reading Time Taken Comments Blood Pressure 120/78 10/26/2025 2:02 PM EST Pulse 68 10/26/2025 2:02 PM EST Temperature 36.1 C (97 F) 10/26/2025 2:02 PM EST Respiratory Rate 20 10/26/2025 2:02 PM EST Oxygen Saturation 98% 10/26/2025 2:02 PM EST Inhaled Oxygen Concentration - - Weight 97.8 kg (215 lb 9.6 oz) 10/26/2025 2:02 P M EST Height 182.9 cm (6') 10/26/2025 2:02 PM EST Body Mass Index 29.24 10/26/2025 2:02 PM EST documented in this encounter Functional Status * Over the past 2 weeks, how often have you been bothered by any of the following problems? Question Answer Date of Assessment Author Patient Health Questionnaire-2 Score 0 10/16 2:39 PM EST Vladislav Thibodeaux MA * Little interest or pleasure in doing things Answer Date of Assessment Author Not at all 10/26/2025 2:39 PM EST Vladislav Thibodeaux MA * Feeling down, depressed, or hopeless Answer Date of Assessment Author Not at all 10/26/2025 2:39 PM EST Vladislav Thibodeaux MA * Trouble falling or staying asleep, or sleeping too much Answer Date of Assessment Author Not at all 10/26/2025 2:39 PM EST Vladislav Thibodeaux MA * Feeling tired or having little energy Answer Date of Assessment Author Not at all 10/26/2025 2:39 PM EST Vladislav Thibodeaux MA * Poor appetite or overeating Answer Date of Assessment Author Not at all 10/26/2025 2:39 PM EST Vladislav Thibodeaux MA * Feeling bad about yourself - or that you are a failure or have let yourself or your family down Answer Date of Assessment Author Not at all 10/26/2025 2:39 PM EST Vladislav Thibodeaux MA * Trouble concentrating on things, such as reading the newspaper or watching television Answer Date of Assessment Author Not at all 10/26/2025 2:39 PM EST Vladislav Thibodeaux MA * Moving or speaking so slowly that other people could have noticed? Or the opposite - being so fidgety or restless that you have been moving around a lot more than usual. Answer Date of Assessment Author Not at all 10/26/2025 2:39 PM Vladislav Bales MA * Thoughts that you would be better off or hurting yourself in some way Answer Date of Assessment Author Not at all 10/26/2025 2:39 PM Vladislav Bales MA * Patient Health Questionnaire-9 Score Answer Date of Assessment Author 0 10/26/2025 2:39 PM Vladislav Bales MA documented as of this encounter Progress Notes * Sancho Mayberry MD - 10/26/2025 2:15 PM EST SUBJECTIVE Clint Dickens is a 69 y.o. male who presents for Follow-up. HPI Review of Systems Constitutional: Negative for fever. HENT: Negative for sore throat. Respiratory: Negative for cough and shortness of breath. Cardiovascular: Negative for chest pain. Gastrointestinal: Negative for abdominal pain. Neurological: Negative for headaches. Allergies[1] OBJECTIVE Vitals: 10/26/25 1402 BP: 120/78 BP Location: Left arm Patient Position: Sitting BP Cuff Size: Adult Pulse: 68 Resp: 20 Temp: 97 ??F (36.1 ??C) TempSrc: Oral SpO2: 98% Weight: 215 lb 9.6 oz (97.8 kg) Height: 6' (1.829 m) Physical Exam [...] medication compliance, counseled about weight loss. Relevant Medications amLODIPine (Norvasc) 5 MG tablet Pure hypercholesterolemia Patient is here for a f/u Patient with elevated lipids. Most recent lipid profile from: Lab Results Component Value Date TRIG 224 (H) 08/02/2025 TRIG 179 (H) 10/05/2024 CHOL 163 08/02/2025 CHOL 171 10/05/2024 LDLCHOLCAL 81 08/02/2025 LDLCHOLCAL 94 10/05/2024 HDL 38 (L) 08/02/2025 HDL 42 10/05/2024 Currently on a regimen of: Atorvastatin 40 mg po daily . Plan: Continue Atorvastatin 40 mg po qhs. advised to try to adhere to a low cholesterol diet, counseled and educated about diet and exercise,Patient encouraged to come up with a personal goal for weight loss. Hypernatremia Pt recently seen in the ER at [facility] with hypertension and hypernatremia Stabilized after treatment. 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 Pt is now on Eliquis given previous PE. 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 Evaluated extensively by material control specialist Dr. Beck who did a hypercoagulable work up that was unrevealing, although she believes pt has a hypercoagulable state and needs to be on anticoagulation life long. Pt continues to follow with hematology He is now on Eliquis ( was on coumadin before but had PE despite this) Chronic right-sided low back pain with right-sided sciatica Relevant Medications oxyCODONE (Roxicodone) 5 MG immediate release tablet [facility] health care PSA 08/02/2025 : 1.70 Normal. Colonoscopy: 02/17/2022 Dr. Valdivia was Normal, he recommended 5 yr f/u given Hx of TA This note was drafted using Ambient (AI) technology. The patient/patient's guardian has been informed and has consented to the use of this technology: Yes Future Appointments Date Time Provider Department Center 11/28/2025 9:45 AM [facility] 03/19/2026 8:00 AM [facility] [place] [facility] [1] No Known Allergies documented in this encounter Miscellaneous Notes * Assessment & Plan Note - Sancho Mayberry MD - 10/26/2025 2:27 PM EST Associated Problem(s): Preventative health care PSA 08/02/2025 : 1.70 Normal. Colonoscopy: 02/17/2022 Dr. Valdivia was Normal, he recommended 5 yr f/u given Hx of TA * Assessment & Plan Note - Sancho Mayberry MD - 10/26/2025 2:20 PM EST Associated Problem(s): Hypernatremia Pt recently seen in the ER at [facility] with hypertension and hypernatremia Stabilized after treatment. Thought to be due to dehydration Plan: Repeat BMP * Assessment & Plan Note - Sancho Mayberry MD - 10/26/2025 2:19 PM EST Associated Problem(s): Pure hypercholesterolemia Patient is here for a f/u Patient with elevated lipids. Most recent lipid profile from: Lab Results Component Value Date TRIG 224 (H) 08/02/2025 TRIG 179 (H) 10/05/2024 CHOL 163 08/02/2025 CHOL 171 10/05/2024 LDLCHOLCAL 81 08/02/2025 LDLCHOLCAL 94 10/05/2024 HDL 38 (L) 08/02/2025 HDL 42 10/05/2024 Currently on a regimen of: Atorvastatin 40 mg po daily . Plan: Continue Atorvastatin 40 mg po qhs. advised to try to adhere to a low cholesterol diet, counseled and educated about diet and exercise,Patient encouraged to come up with a personal goal for weight loss. * Assessment & Plan Note - Sancho Mayberry MD - 10/26/2025 2:18 PM EST Associated Problem(s): Essential hypertension Pt here for [...] about medication compliance, counseled about weight loss. 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 Evaluated extensively by material control specialist Dr. Beck who did a hypercoagulable work up that was unrevealing, although she believes pt has a hypercoagulable state and needs to be on anticoagulation life long. 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 Pt is now on Eliquis given previous PE. Undergoing hypercoagulable work up per Hematology last seen09/12/2025 * Addendum Note - Vladislav Thibodeaux MA - 10/26/2025 2:15 PM ESTAddended by: VLADISLAV THIBODEAUX on: 10/26/2025 02:40 PM Modules accepted: Orders documented in this encounter Plan of Treatment Upcoming Encounters Date Type Department Care Team (Late st Contact Info) Description 11/28/2025 9:45 AM EST Office Visit [facility] [address] [place] [address] 03/19/2026 8:00 AM EDT Office Visit [facility] ADULT [facility] [address] [place] [address] Yi Sanchez Scheduled Orders Name Type Priority Associated Diagnoses Orde r Schedule Basic Metabolic Panel Lab Routine Hypernatremia Expected: 10/26/2025 (Approximate), Expires: 10/26/2026 documented as of this encounter Visit Diagnoses Diagnosis Essential hypertension- Primary Unspecified essential hypertension Pure hypercholesterolemia Hypernatremia Hyperosmolality and/or hypernatremia Chronic anticoagulation Encounter for long-term (current) use of anticoagulants 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
[2025-10-26 18:24] LABS: Anion Gap 10 (12-20); Blood Urea Nitrogen 15 mg/dL (9-16); Calcium 9.0 mg/dL (8.4-10.2); Carbon Dioxide 27 mmol/L (22-29); Chloride 107 mmol/L (96-108); Estimated Glomerular Filt Rate > 60; Potassium 4.1 mmol/L (3.3-5.1); Sodium 140 mmol/L (135-145)
--- OUTSIDE RECORDS SUMMARY | 2025-10-26 22:24 | XMS_ITS | Encounter Summary ---
Author Organization [employer] Address [address] [facility] 7t [place] [address] Care Team Providers Care Secondary Special Education Teacher Name Role Phone Sancho Yoon MD Primary Care Provide r Tae Kong MD Unavailable [phone] Reason for Visit * Reason Onset Date Comments Med Refill 06/13/2025 Encounter Details Date Type Department Care Team ([facility] st Contact Info) Description 06/13/2025 Telephone [facility] MED[facility] [address] [place] [address] Sancho Yoon MD [address] [place] [address] Med Refill Social History Tobacco Use Types [...] immediate release tablet To be sent to: [facility] documented in this encounter Plan of Treatment Upcoming Encounters Date Type Department Care Team (Late st Contact Info) Description 11/28/2025 9:45 AM EST Office Visit [facility] [address] [place] [address] 03/19/2026 8:00 AM EDT Office Visit [facility] ADULT DENTAL [address] [place] [address] Yi Sanchez documented as of this encounter Visit Diagnoses Not on filedocumented in this encounter Additional Health Concerns Assessment Noted Time PHQ-9 Depression Total Score: 0 09/29/20 24 9:48 AM EST documented as of this encounter Care Teams Secondary Special Education Teacher Relationship Specialty Start Date End Date Sancho Yoon MD [address] [place] [address] PCP - General Internal Medicine 08/16/14 Tae Kong MD [address] [place] [address] Cardiology 07/18/25 documented as of this encounter
--- OUTSIDE RECORDS SUMMARY | 2025-10-26 22:24 | XMS_ITS | Encounter Summary ---
Author Organization [employer] Address [address] [facility] [address] 7[address] [place] [address] Care Team Providers Care Sleep Lab Technician Name Role Phone Sancho Yoon MD Primary Care Provide r Tae Kong MD Unavailable [phone] Encounter Details Date Type Department Care Team (Latest Contact Info) Description 10/26/2025 Travel Social History Tobacco Use Types Packs/Day [...] PM EST documented as of this encounter Functional Status * Over the past 2 weeks, how often have you been bothered by any of the following problems? Question Answer Date of Assessment Author Patient Health Questionnaire-2 Score 0 10/16 2:39 PM Marysol Bales MA * Little interest or pleasure in doing things Answer Date of Assessment Author Not at all 10/26/2025 2:39 PM EST Marysol Thibodeaux MA * Feeling down, depressed, or hopeless Answer Date of Assessment Author Not at all 10/26/2025 2:39 PM EST Marysol Thibodeaux MA * Trouble falling or staying asleep, or sleeping too much Answer Date of Assessment Author Not at all 10/26/2025 2:39 PM EST Marysol Thibodeaux MA * Feeling tired or having little energy Answer Date of Assessment Author Not at all 10/26/2025 2:39 PM EST Marysol Thibodeaux MA * Poor appetite or overeating Answer Date of Assessment Author Not at all 10/26/2025 2:39 PM EST Marysol Thibodeaux MA * Feeling bad about yourself - or that you are a failure or have let yourself or your family down Answer Date of Assessment Author Not at all 10/26/2025 2:39 PM EST Marysol Thibodeaux MA * Trouble concentrating on things, such as reading the newspaper or watching television Answer Date of Assessment Author Not at all 10/26/2025 2:39 PM Marysol Bales MA * Moving or speaking so slowly that other people could have noticed? Or the opposite - being so fidgety or restless that you have been moving around a lot more than usual. Answer Date of Assessment Author Not at all 10/26/2025 2:39 PM Marysol Bales MA * Thoughts that you would be better off or hurting yourself in some way Answer Date of Assessment Author Not at all 10/26/2025 2:39 PM Marysol Bales MA * Patient Health Questionnaire-9 Score Answer Date of Assessment Author 0 10/26/2025 2:39 PM Marysol Bales MA documented as of this encounter Plan of Treatment Upcoming Encounters Date Type Department Care Team (Late st Contact Info) Description 11/28/2025 9:45 AM EST Office Visit [facility] [address] [place] [address] 03/19/2026 8:00 AM EDT Office Visit [facility] AD[facility] [address] [place] [address] Yi Sanchez documented as of this encounter Visit Diagnoses Not on filedocumented in this encounter Additional Health Concerns Assessment Noted Time PHQ-9 Depression Total Score: 0 10/26/20 2:39 PM EST documented as of this encounter Care Teams Sleep Lab Technician Relationship Specialty Start Date End Date Sancho Yoon MD [address] [place] [address] PCP - General Internal Medicine 08/16/14 Tae Kong MD [address] [place] [address] Cardiology 07/18/25 documented as of this encounter
--- OUTSIDE RECORDS SUMMARY | 2025-10-26 22:25 | XMS_ITS | Encounter Summary ---
Author Organization [employer] Address [address] [facility] 7t [place] [address] Care Team Providers Care Cup Machine Operator Name Role Phone Sancho Yoon MD Primary Care Provide r Tae Kong MD Unavailable [phone] Reason for Visit * Reason Onset Date Comments Med Refill 10/02/2025 Encounter Details Date Type Department Care Team ([facility] st Contact Info) Description 10/02/2025 Telephone [facility] MEDICINE [address] [place] [address] Sancho Yoon MD [address] [place] [address] Med Refill Social History Tobacco Use Types [...] immediate release tablet To be sent to: [facility] documented in this encounter Plan of Treatment Upcoming Encounters Date Type Department Care Team (Late st Contact Info) Description 11/28/2025 9:45 AM EST Office Visit [facility] MEDICINE [address] [place] [address] 03/19/2026 8:00 AM EDT Office Visit [facility] ADULT DENTAL [address] [place] [address] Yi Sanchez documented as of this encounter Visit Diagnoses Not on filedocumented in this encounter Additional Health Concerns Assessment Noted Time PHQ-9 Depression Total Score: 0 09/29/20 24 9:48 AM EST documented as of this encounter Care Teams Cup Machine Operator Relationship Specialty Start Date End Date Sancho Yoon MD [address] [place] [address] PCP - General Internal Medicine 08/16/14 Tae Kong MD [address] [place] [address] Cardiology 07/18/25 documented as of this encounter
--- OUTSIDE RECORDS SUMMARY | 2025-10-26 22:25 | XMS_ITS | Encounter Summary ---
Author Organization [employer] Address [address] [facility] [address]t [place] [address] Care Team Providers Care Waterproofing Mixer Name Role Phone Sancho Yoon MD Primary Care Provide r Tae Kong MD Unavailable [phone] Encounter Details Date Type Department Care Team (Latest Contact Info) Description 10/26/2019 Abstract [facility] Dental, Provider, DDS Social History Tobacco [...] Department Care Team ( Contact Info) Description 11/28/2025 9:45 AM EST Office Visit [facility] [address] [place] [address] 03/19/2026 8:00 AM EDT Office Visit [facility] [address] [place] [address] Yi Sanchez documented as of this encounter Visit Diagnoses Not on filedocumented in this encounter Care Teams Waterproofing Mixer Relationship Specialty Start Date End Date Sancho Yoon MD [address] [place] [address] PCP - General Internal Medicine 08/16/14 Tae Kong MD [address] [place] [address] Cardiology 07/18/25 documented as of this encounter
--- OUTSIDE RECORDS SUMMARY | 2025-10-26 22:25 | XMS_ITS | Encounter Summary ---
Author Organization [employer] Address [address] [facility] 7t [place] [address] Care Team Providers Care Commercial Loan Specialist Name Role Phone Sancho Yoon MD Primary Care Provide r Tae Kong MD Unavailable [phone] Reason for Visit * Reason Comments Med Refill Encounter Details Date Type Department Care Team ([facility] st Contact Info) Description 08/07/2025 Refill [facility] [address] [place] [address] Miesha Schwartz, DO [address] [place] [address] Chronic right-sided low back pain with right-sided [...] Description 11/28/2025 9:45 AM EST Office Visit [facility] [address] [place] [address] 03/19/2026 8:00 AM EDT Office Visit [facility] ADULT D[facility] [address] [place] [address] Yi Sanchez documented as of this encounter Visit Diagnoses Diagnosis Chronic right-sided low back pain with right-sided sciatica documented in this encounter Additional Health Concerns Assessment Noted Time PHQ-9 Depression Total Score: 0 09/29/20 24 9:48 AM EST documented as of this encounter Care Teams Commercial Loan Specialist Relationship Specialty Start Date End Date Sancho Yoon MD [address] [place] [address] PCP - General Internal Medicine 08/16/14 Tae Kong MD [address] [place] [address] Cardiology 07/18/25 documented as of this encounter
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
--- OUTSIDE RECORDS SUMMARY | 2025-10-26 22:25 | XMS_ITS | Encounter Summary ---
Author Organization [employer] Address [address] [facility] [place] [address] Care Team Providers Care Tie Tamper Name Role Phone Sancho Yoon MD Primary Care Provide r Tae Kong MD Unavailable [phone] Reason for Visit * Reason Onset Date Comments Med Refill 04/03/2025 Encounter Details Date Type Department Care Team ([facility] st Contact Info) Description 04/03/2025 Telephone [facility] MEDICINE [address] [place] [address] Sancho Yoon MD [address] [place] [address] Med Refill Social History Tobacco Use Types [...] immediate release tablet To be sent to: [facility] documented in this encounter Plan of Treatment Upcoming Encounters Date Type Department Care Team (Late st Contact Info) Description 11/28/2025 9:45 AM EST Office Visit [facility] MEDICINE [address] [place] [address] 03/19/2026 8:00 AM EDT Office Visit [facility] ADULT DENTAL [address] [place] [address] Yi Sanchez documented as of this encounter Visit Diagnoses Not on filedocumented in this encounter Additional Health Concerns Assessment Noted Time PHQ-9 Depression Total Score: 0 09/29/20 24 9:48 AM EST documented as of this encounter Care Teams Tie Tamper Relationship Specialty Start Date End Date Sancho Yoon MD [address] [place] [address] PCP - General Internal Medicine 08/16/14 Tae Kong MD [address] [place] [address] Cardiology 07/18/25 documented as of this encounter
--- OUTSIDE RECORDS SUMMARY | 2025-10-26 22:25 | XMS_ITS | Encounter Summary ---
Author Organization [employer] Address [address] [facility] [address] [place] [address] Care Team Providers Care Bottle Blowing Machine Tender Name Role Phone Sancho Yoon MD Primary Care Provide r Tae Kong MD Unavailable [phone] Reason for Visit * Reason Comments Med Refill Encounter Details Date Type Department Care Team ([facility] st Contact Info) Description 02/27/2025 Refill [facility] MEDICINE [address] [place] [address] Sancho Yoon MD [address] [place], [place] [phone] Benign prostatic hyperplasia with lower urinary tract [...] 9:45 AM EST Office Visit [facility] MEDICINE [address] [place] [address] 03/19/2026 8:00 AM EDT Office Visit [facility] ADULT DENTAL [address] [place] [address] Yi Sanchez documented as of this encounter Visit Diagnoses Diagnosis Benign prostatic hyperplasia with lower urinary tract symptoms Other obstructive and reflux uropathy documented in this encounter Additional Health Concerns Assessment Noted Time PHQ-9 Depression Total Score: 0 09/29/20 24 9:48 AM EST documented as of this encounter Care Teams Bottle Blowing Machine Tender Relationship Specialty Start Date End Date Sancho Yoon MD [address] [place] [address] PCP - General Internal Medicine 08/16/14 Tae Kong MD [address] [place] [address] Cardiology 07/18/25 documented as of this encounter
--- OUTSIDE RECORDS SUMMARY | 2025-10-26 22:25 | XMS_ITS | Encounter Summary ---
Author Organization [employer] Address [address] [facility] 7t [place] [address] Care Team Providers Care Relay Shop Tester Name Role Phone Sancho Yoon MD Primary Care Provide r Tae Kong MD Unavailable [phone] Encounter Details Date Type Department Care Team ([facility] Contact Info) Description 10/29/2022 Orders Only [facility] [address] [place] [address] 66[address] Sancho Yoon MD [address] [place] [address] Pleural scarring (Primary Dx); Abnormal chest CT [...] Upcoming Encounters Date Type Department Care Team ([facility] Contact Info) Description 11/28/2025 9:45 AM EST Office Visit [facility] [address] [place] [address] 03/19/2026 8:00 AM EDT Office Visit [facility]ULT [facility] [address] [place] [address] Yi Sanchez documented as of this encounter [...] EST) Protime 42.3(H) 11.1 - 13.5 sec [facility] 12/18/2022 2:35 PM EST 12/18/2022 2:37 PM EST us [facility] External Provider LAB BLO OD ORDERABLES Final Result Performing Organization Address City/State/[facility] Co de Phone Number [facility] [address] [place] [address] [phone] * (ABNORMAL) ~PT, ~INR - ANTI COAG CLINIC (12/18/2022 2:35 PM EST) Prothrombin Time INR 3.5(H) 0.9 - 1.1 [facility] Comment:METER #: [id number] TERNATIONAL NORMALIZED RATIO (INR) REFERENCE RANGES Reference [...] 2:35 PM EST 12/18/2022 2:37 PM EST [facility] External Provider LAB BLO OD ORDERABLES Final Result Performing Organization Address [facility] de Phone Number [facility] [address] [place] [address] [phone] * (ABNORMAL) PROTHROMBIN TIME WHOLE BLD POC (12/11/2022 2:35 PM EST) Protime 36.7(H) 11.1 - 13.5 sec [facility] 12/11/2022 2:35 PM EST 12/11/2022 2:36 PM EST [facility] External Provider LAB BLO OD ORDERABLES Final Result Performing Organization Address [facility] de Phone Number [facility] [address] [place] [address] [phone] * (ABNORMAL) ~PT, ~INR - ANTI COAG CLINIC (12/11/2022 2:35 PM EST) Prothrombin Time INR 3.1(H) 0.9 - 1.1 [facility] Comment:METER #: [id number] TERNATIONAL NORMALIZED RATIO (INR) REFERENCE RANGES Reference [...] 2:35 PM EST 12/11/2022 2:36 PM EST [facility] External Provider LAB BLO OD ORDERABLES Final Result Performing Organization Address [facility]/ZIP Co de Phone Number [facility] [address] [place] [address] [phone] * (ABNORMAL) PROTHROMBIN TIME WHOLE BLD POC (12/04/2022 3:39 PM EST) Protime 56.8(H) 11.1 - 13.5 sec [facility] 12/04/2022 3:39 PM EST 12/04/2022 3:40 PM EST [facility] External Provider LAB BLO OD ORDERABLES Final Result Performing Organization Address [facility] de Phone Number [facility] [address] [place] [address] [phone] * (ABNORMAL) ~PT, ~INR - ANTI COAG CLINIC (12/04/2022 3:39 PM EST) [facility] Prothrombin Time INR 4.7(H) 0.9 - 1.1 [facility] Comment:METER #: [id number] TERNATIONAL NORMALIZED RATIO (INR) REFERENCE RANGES Reference [...] 3:39 PM EST 12/04/2022 3:40 PM EST [facility] External Provider LAB BLO OD ORDERABLES Final Result Performing Organization Address [facility] Co de Phone Number [facility] [address] [place] [address] [phone] * (ABNORMAL) Liver Fibrosis, FibroTest-ActiTest Panel (12/04/2022 10:15 AM EST) Pathologist [facility] Liver Fibrosis Score 0.58 [facility] Liver Fibrosis Stage F2 [facility] Liver Fibrosis Interpretation SEE NOTE [facility] Comment:moderate fibrosisFib ro Test Score [...] (severe fibrosis) Nec Inflam Act Score 0.41 [facility] Nec Inflam Act Grade A1-A2 [facility] Nec Inflam Act Interpretation SEE NOTE [facility] Comment:minimal activityActi Test Score (a) Metavir Score a>=0 and a<=0.17 : A0 (no activity)a>0.17 and a<=0.29 : A0-A1 (no activity)a>0.29 and a<=0.36 : A1 (minimal activity)a>0.36 and a<=0.52 : A1-A2 (minimal activity)a>0.52 and a<=0.60 : A2 (significant activity)a>0.60 and a<=0.62 : A2-A3 (significant activity)a>0.62 and a<=1.00 : A3 (severe activity) OEP-Swbux-9-Macroglo bulin 275 106 - 279 mg/dL [facility] FIB-Haptoglobin 120 43 - 212 mg/dL [facility] FIB-Apolipoprotein A1 171 94 - 176 mg/dL [facility] FIB-Total Bilirubin 0.8 0.2 - 1.2 mg/dL [facility] FIB-GGT 64 3 - 70 U/L [facility] FIB-ALT 53(A) 9 - 46 U/L [facility] Reference ID [id number] [facility] Footnote SEE NOTE [facility] Comment: The reliability of results [...] and C.The performance characteristics have been determined by[facility] [place]. Ithas not been cleared or approved by the U.S. Food and DrugAdministration. Performance characteristics refer to theanalytical performance of the test.[employer], [employer], the associated logo, [facility] and all associated [employer] holloway are theregistered trademarks of [employer]. All third partymarks - (R) and (TM) - are the property of their respectiveowners. (C) [id number] [employer]. Allrights reserved.THIS TEST WAS PERFORMED AT:[facility]/[employer] [id number] [place] [address]ILRRIJOHN JERNIGAN MD,PHD,DAYDAY 12/04/2022 10:1 5 AM EST 12/04/2022 10:15 AM EST us [facility] External Provider LAB BLO OD ORDERABLES Final Result [facility] [address] [place] [address] [phone] * Alphafetoprotein, Tumor Marker (12/04/2022 10:15 AM EST) Alpha Fetoprotein 2.5 <6.1 ng/mL [facility] Comment:This test was perfor med using the Deacon Coulterchemiluminescent method. Values obtained fromdifferent assay methods cannot be usedinterchangeably. AFP levels, regardless ofvalue, should not be interpreted as absoluteevidence of the presence or absence of disease.THIS TEST WAS PERFORMED AT:[facility] [address] ([address] [address]MUBEPTINO PALOMARES MD 12/04/2022 10:1 5 AM EST 12/04/2022 10:15 AM EST [facility] External Provider LAB BLO OD ORDERABLES Final Result Performing Organization Address [facility] Co de Phone Number [facility] [address] [place] [address] [phone] * (ABNORMAL) Hepatic Function Panel (12/04/2022 10:15 AM EST) Pathologist [facility] Bilirubin, Total 1.0 0.0 - 1.0 mg/dL [facility] Bilirubin, Direct 0.3 0.0 - 0.5 mg/dL [facility] Aspartate Amino Transferase 35 5 - 37 U/L [facility] Alanine Aminotransferase 58(H) 0 - 40 U/L [facility] Total Protein 7.2 6.5 - 8.0 g/dL [facility] Albumin Level 4.2 3.5 - 5.0 g/dL [facility] Alkaline Phosphatase 63 39 - 117 U/L [facility] 12/04/2022 10:1 5 AM EST 12/04/2022 10:15 AM EST [facility] External Provider LAB BLO OD ORDERABLES Final Result Performing Organization Address [facility] Co de Phone Number [facility] [address] [place] [address] [phone] * (ABNORMAL) CBC auto differential (12/04/2022 10:15 AM EST) White Blood Count 6.9 4.8 - 10.8 X10*3/uL [facility] Red Blood Count 4.93 4.60 - 5.80 X10*6/uL [facility] Hemoglobin 15.0 14.0 - 18.0 g/dl [facility] Hematocrit 44.5 42.0 - 52.0 % [facility] Mean Corpuscular Volume 90.3 80.0 - 98.0 fL [facility] Mean Corpuscular Hemoglobin 30.4 27.0 - 33.0 pg [facility] Mean Corpuscular HGB Conc 33.7 31.0 - 36.0 g/dl [facility] Red Cell Distribution Width 13.4 11.0 - 16.0 % [facility] Platelet Count 218 160 - 400 X10*3/uL [facility] Mean Platelet Volume 10.0 9.4 - 12.4 fL [facility] Neutrophils Percent Auto 34.1(L) 45 - 73 % [facility] Imm Gran Pct Auto 0.4 0.0 - 0.4 % [facility] Lymphocytes Percent Auto 52.2(H) 20 - 40 % [facility] Monocytes Percent Auto 9.0 2 - 11 % [facility] Eosinophils Percent Auto 3.9 0 - 4 % [facility] Basophils Percent Auto 0.4 0 - 2 % [facility] NRBC Pct Auto 0.0 0.0 - 0.2 /100WBC [facility] Neutrophils Absolute Auto 2.3 2.0 - 8.3 x10*3/uL [facility] Imm Gran Abs Auto 0.03 0.00 - 0.03 X10*3/uL [facility] Lymphocytes Absolute Auto 3.6 1.2 - 4.9 X10*3/uL [facility] Monocytes Absolute Auto 0.6 0.1 - 1.2 X10*3/uL [facility] Eosinophils Absolute Auto 0.3 0.0 - 0.4 X10*3/uL [facility] Basophils Absolute Auto 0.0 0.0 - 0.2 X10*3/uL [facility] NRBC Abs Auto 0.000 0.0 - 0.012 X10*3/uL [facility] 12/04/2022 10:1 5 AM EST 12/04/2022 10:15 AM EST [facility] External Provider LAB BLO OD ORDERABLES Final Result Performing Organization Address [facility] de Phone Number [facility] [address] [place] [address] [phone] * POCT Creatinine GFR (12/04/2022 9:49 AM EST) Pathologist [facility] POCT Creatinine 0.9 0.5 - 1.4 mg/dL [facility] GFR POC >60 [facility] Comment:Chronic Kidney Disea se: Estimated GFR < 60 mL/min/1.81s8Ghzaqy Kidney Disease: Estimated GFR < 15 mL/min/1.73m2 12/04/2022 9:49 AM EST 12/04/2022 4:06 PM EST Narrative [facility] - 12/04/2022 4:07 PM EST [id number] [facility] Exter nal Provider LAB POINT OF CARE TEST DOCKED DEVICE ORDERABLES Final Result Performing Organization Address [facility] Co de Phone Number [facility] [address] [place] [address] [phone] * (ABNORMAL) PROTHROMBIN TIME WHOLE BLD POC (12/03/2022 2:54 PM EST) Protime 69.3(H) 11.1 - 13.5 sec [facility] 12/03/2022 2:54 PM EST 12/03/2022 3:30 PM EST [facility] External Provider LAB BLO OD ORDERABLES Final Result Performing Organization Address [facility] de Phone Number [facility] [address] [place] [address] [phone] * (ABNORMAL) ~PT, ~INR - ANTI COAG CLINIC (12/03/2022 2:54 PM EST) Prothrombin Time INR 5.8(HH) 0.9 - 1.1 [facility] Comment:METER #: [id number] ctor NotifiedINTERNATIONAL NORMALIZED RATIO (INR) REFERENCE RANGES [...] 2:54 PM EST 12/03/2022 3:30 PM EST [facility] External Provider LAB BLO OD ORDERABLES Final Result Performing Organization Address [facility] de Phone Number [facility] [address] [place] [address] [phone] * (ABNORMAL) PROTHROMBIN TIME WHOLE BLD POC (11/26/2022 2:46 PM EST) Protime 40.1(H) 11.1 - 13.5 sec [facility] 11/26/2022 2:46 PM EST 11/26/2022 2:47 PM EST [facility] External Provider LAB BLO OD ORDERABLES Final Result Performing Organization Address [facility] Co de Phone Number [facility] [address] [place] [address] [phone] * (ABNORMAL) ~PT, ~INR - ANTI COAG CLINIC (11/26/2022 2:46 PM EST) Prothrombin Time INR 3.3(H) 0.9 - 1.1 [facility] Comment:METER #: [id number] TERNATIONAL NORMALIZED RATIO (INR) REFERENCE RANGES Reference [...] 2:46 PM EST 11/26/2022 2:47 PM EST [facility] External Provider LAB BLO OD ORDERABLES Final Result Performing Organization Address City/[facility]/ZIP Co de Phone Number [facility] [address] [place] [address] [phone] * (ABNORMAL) PROTHROMBIN TIME WHOLE BLD POC (11/05/2022 3:33 PM EST) Pathologist [facility] Protime 33.6(H) 11.1 - 13.5 sec [facility] 11/05/2022 3:33 PM EST 11/05/2022 3:35 PM EST [facility] External Provider LAB BLO OD ORDERABLES Final Result Performing Organization Address City/[facility]/ZIP Co de Phone Number [facility] [address] [place] [phone] * (ABNORMAL) ~PT, ~INR - ANTI COAG CLINIC (11/05/2022 3:33 PM EST) Prothrombin Time INR 2.8(H) 0.9 - 1.1 [facility] Comment:METER #: [id number] TERNATIONAL NORMALIZED RATIO (INR) REFERENCE RANGES Reference [...] 3:33 PM EST 11/05/2022 3:35 PM EST [facility] External Provider LAB BLO OD ORDERABLES Final Result Performing Organization Address [facility] Co de Phone Number [facility] [address] [place] [address] [phone] * (ABNORMAL) PROTHROMBIN TIME WHOLE BLD POC (10/29/2022 3:11 PM EST) Protime 45.2(H) 11.1 - 13.5 sec [facility] 10/29/2022 3:11 PM EST 10/30/2022 7:55 AM EST [facility] External Provider LAB BLO OD ORDERABLES Final Result Performing Organization Address [facility] de Phone Number [facility] [address] [place] [address] [phone] * (ABNORMAL) ~PT, ~INR - ANTI COAG CLINIC (10/29/2022 3:11 PM EST) Prothrombin Time INR 3.8(H) 0.9 - 1.1 [facility] Comment:METER #: [id number] TERNATIONAL NORMALIZED RATIO (INR) REFERENCE RANGES Reference [...] 3:11 PM EST 10/30/2022 7:55 AM EST [facility] External Provider LAB BLO OD ORDERABLES Final Result [facility] [address] [place] [phone] [phone] documented in this encounter Visit Diagnoses Diagnosis Pleural scarring- Primary Pleurisy without mention of effusion or current tuberculosis Abnormal chest CT Nonspecific (abnormal) findings on radiological and other examination of other intrathoracic organs documented in this encounter Care Teams Relay Shop Tester Relationship Specialty Start Date End Date Sancho Yoon MD [address] [place] [address] PCP - General Internal Medicine 08/16/14 Tae Kong MD [address] [place] [address] Cardiology 07/18/25 documented as of this encounter
--- OUTSIDE RECORDS SUMMARY | 2025-10-26 22:25 | XMS_ITS | Encounter Summary ---
Author Organization [employer] Address [address] [facility] 7t [place] [address] Care Team Providers Care Web Marketing Manager Name Role Phone Sancho Yoon MD Primary Care Provide r Tae Kong MD Unavailable [phone] Reason for Visit * Reason Comments Med Refill Encounter Details Date Type Department Care Team ([facility] st Contact Info) Description 08/08/2025 Refill [facility] [address] [place] [address] Miesha Schwartz, DO [address] [place] [address] Chronic right-sided low back pain with right-sided [...] Description 11/28/2025 9:45 AM EST Office Visit [facility] [address] [place] [address] 03/19/2026 8:00 AM EDT Office Visit [facility] ADULT DENT[facility] [address] [place] [address] Yi Sanchez documented as of this encounter Visit Diagnoses Diagnosis Chronic right-sided low back pain with right-sided sciatica documented in this encounter Additional Health Concerns Assessment Noted Time PHQ-9 Depression Total Score: 0 09/29/20 24 9:48 AM EST documented as of this encounter Care Teams Web Marketing Manager Relationship Specialty Start Date End Date Sancho Yoon MD [address] [place] [address] PCP - General Internal Medicine 08/16/14 Tae Kong MD [address] [place] [address] Cardiology 07/18/25 documented as of this encounter
--- OUTSIDE RECORDS SUMMARY | 2025-10-26 22:25 | XMS_ITS | Encounter Summary ---
Author Organization [employer] Address [address] [facility] 7t [place] [address] Care Team Providers Care Cotton Washer Name Role Phone Sancho Yoon MD Primary Care Provide r Tae Kong MD Unavailable [phone] Reason for Visit * Reason Comments Med Refill Encounter Details Date Type Department Care Team ([facility] st Contact Info) Description 10/21/2023 Refill [facility] MEDICINE [address] [place] [address] Sancho Yoon MD [address] [place], [place] [phone] Pure hypercholesterolemia Social History Tobacco Use Types [...] Description 11/28/2025 9:45 AM EST Office Visit [facility] MED[facility]INE [address] [place] [address] 03/19/2026 8:00 AM EDT Office Visit [facility] ADULT DENTAL [address] [place] [address] Yi Sanchez documented as of this encounter Visit Diagnoses Diagnosis Pure hypercholesterolemia documented in this encounter Additional Health Concerns Assessment Noted Time PHQ-9 Depression Total Score: 3 03/23/20 23 1:07 PM EDT documented as of this encounter Care Teams Cotton Washer Relationship Specialty Start Date End Date Sancho Yoon MD [address] [place] [address] PCP - General Internal Medicine 08/16/14 Tae Kong MD [address] [place] [address] Cardiology 07/18/25 documented as of this encounter
--- OUTSIDE RECORDS SUMMARY | 2025-10-26 22:25 | XMS_ITS | Encounter Summary ---
Author Organization [employer] Address [address] [facility] 7t [place] [address] Care Team Providers Care Physical Director Name Role Phone Sancho Yoon MD Primary Care Provide r Tae Kong MD Unavailable [phone] Encounter Details Date Type Department Care Team (Latest Contact Info) Description 04/16/2021 Abstract [facility] CONVERSIONS Dental, Provider, DDS Social [...] Visit [facility] MEDICINE [address] [place] [address] 03/19/2026 8:00 AM EDT Office Visit [facility] ADULT DENTAL [address] [place] [address] Yi Sanchez documented as of this encounter Visit Diagnoses Not on filedocumented in this encounter Care Teams Physical Director Relationship Specialty Start Date End Date Sancho Yoon MD [address] [place] [address] PCP - General Internal Medicine 08/16/14 Tae Kong MD [address] [place] [address] Cardiology 07/18/25 documented as of this encounter
--- OUTSIDE RECORDS SUMMARY | 2025-10-26 22:25 | XMS_ITS | Encounter Summary ---
Author Organization [employer] Address [address] [facility] 7t [place] [address] Care Team Providers Care Computer Numerical Control Machinist Name Role Phone Sancho Yoon MD Primary Care Provide r Tae Kong MD Unavailable [phone] Reason for Visit * Reason Comments Med Refill Encounter Details Date Type Department Care Team ([facility] st Contact Info) Description 10/21/2023 Refill [facility] [address] [place] [address] Sancho Yoon MD [address] [place], [place] [phone] Pure hypercholesterolemia Social History Tobacco Use Types [...] Description 11/28/2025 9:45 AM EST Office Visit [facility] [address] [place] [address] 03/19/2026 8:00 AM EDT Office Visit [facility] ADULT DENTAL [address] [place] [address] Yi Sanchez documented as of this encounter Visit Diagnoses Diagnosis Pure hypercholesterolemia documented in this encounter Additional Health Concerns Assessment Noted Time PHQ-9 Depression Total Score: 3 03/23/20 23 1:07 PM EDT documented as of this encounter Care Teams Computer Numerical Control Machinist Relationship Specialty Start Date End Date Sancho Yoon MD [address] [place] [address] PCP - General Internal Medicine 08/16/14 Tae Kong MD [address] [place] [phone] Cardiology 07/18/25 documented as of this encounter
--- OUTSIDE RECORDS SUMMARY | 2025-10-26 22:25 | XMS_ITS | Encounter Summary ---
Author Organization [employer] Address [address] [facility] 7t [place] [address] Care Team Providers Care Quartz Miner Name Role Phone Sancho Yoon MD Primary Care Provide r Tae Kong MD Unavailable [phone] Encounter Details Date Type Department Care Team (Latest Contact Info) Description 07/04/2022 Abstract [facility] CONVERSIONS Dental, Provider, DDS Social History [...] Description 11/28/2025 9:45 AM EST Office Visit [facility] MEDICINE [address] [place] [address] 03/19/2026 8:00 AM EDT Office Visit [facility] ADULT DENTAL [address] [place] [address] Yi Sanchez documented as of this encounter Visit Diagnoses Not on filedocumented in this encounter Care Teams Quartz Miner Relationship Specialty Start Date End Date Sancho Yoon MD [address] [place] [address] PCP - General Internal Medicine 08/16/14 Tae Kong MD [address] [place] [address] Cardiology 07/18/25 documented as of this encounter
--- OUTSIDE RECORDS SUMMARY | 2025-10-26 22:25 | XMS_ITS | Encounter Summary ---
Author Organization [employer] Address [address] [facility] 7t [place] [address] Care Team Providers Care Advertising Display Rotator Name Role Phone Sancho Yoon MD Primary Care Provide r Tae Kong MD Unavailable [phone] Reason for Visit * Reason Onset Date Comments Med Refill 09/04/2025 Encounter Details Date Type Department Care Team ([facility] st Contact Info) Description 09/04/2025 Telephone [facility] MEDICINE [address] [place] [address] Sancho Yoon MD [address] [place] [address] Med Refill Social History Tobacco Use Types [...] tablet To be sent to: [facility] documented in this encounter Plan of Treatment Upcoming Encounters Date Type Department Care Team (Late st Contact Info) Description 11/28/2025 9:45 AM EST Office Visit [facility] MEDICINE [address] [place] [address] 03/19/2026 8:00 AM EDT Office Visit [facility] ADULT DENTAL [address] [place] [address] Yi Sanchez documented as of this encounter Visit Diagnoses Not on filedocumented in this encounter Additional Health Concerns Assessment Noted Time PHQ-9 Depression Total Score: 0 09/29/20 9:48 AM EST documented as of this encounter Care Teams Advertising Display Rotator Relationship Specialty Start Date End Date Sancho Yoon MD [address] [place] [address] PCP - General Internal Medicine 08/16/14 Tae Kong MD [address] [place] [address] Cardiology 07/18/25 documented as of this encounter
--- OUTSIDE RECORDS SUMMARY | 2025-10-26 22:25 | XMS_ITS | Encounter Summary ---
Author Organization [employer] Address [address] [facility] 7t [place] [address] Care Team Providers Care Carbonating Stone Cleaner Name Role Phone Sancho Yoon MD Primary Care Provide r Tae Kong MD Unavailable [phone] Reason for Visit * Reason Onset Date Comments Med Refill 04/17/2025 Encounter Details Date Type Department Care Team ([facility] st Contact Info) Description 04/17/2025 Telephone [facility] MEDICINE [address] [place] [address] Sancho Yoon MD [address] [place] [address] Med Refill Social History Tobacco Use Types [...] immediate release tablet To be sent to: [facility] documented in this encounter Plan of Treatment Upcoming Encounters Date Type Department Care Team (Late st Contact Info) Description 11/28/2025 9:45 AM EST Office Visit [facility] MEDICINE [address] [place] [address] 03/19/2026 8:00 AM EDT Office Visit [facility] ADULT DENTAL [address] [place] [address] Yi Sanchez documented as of this encounter Visit Diagnoses Not on filedocumented in this encounter Additional Health Concerns Assessment Noted Time PHQ-9 Depression Total Score: 0 09/29/20 9:48 AM EST documented as of this encounter Care Teams Carbonating Stone Cleaner Relationship Specialty Start Date End Date Sancho Yoon MD [address] [place] [address] PCP - General Internal Medicine 08/16/14 Tae Kong MD [address] [place] [address] Cardiology 07/18/25 documented as of this encounter
--- OUTSIDE RECORDS SUMMARY | 2025-10-26 22:25 | XMS_ITS | Encounter Summary ---
Author Organization [employer] Address [address] [facility] 7t [place] [address] Care Team Providers Care Metal Bonder Name Role Phone Sancho Yoon MD Primary Care Provide r Tae Kong MD Unavailable [phone] Reason for Visit * Reason Onset Date Comments Appointment Request 03/22/2025 Encounter Details Date Type Department Care Team ([facility] st Contact Info) Description 03/22/2025 Telephone [facility] MEDICINE [address] [place] [address] Sancho Yoon MD [address] [place] [address] Appointment Request Social History Tobacco Use Types [...] reschedule appointment from 03/07 Please contact pt [phone] documented in this encounter Plan of Treatment Upcoming Encounters Date Type Department Care Team (Late st Contact Info) Description 11/28/2025 9:45 AM EST Office Visit [facility] MEDICINE [address] [place] [address] 03/19/2026 8:00 AM EDT Office Visit [facility] ADULT DENTAL [address] [place] [address] Yi Sanchez documented as of this encounter Visit Diagnoses Not on filedocumented in this encounter Additional Health Concerns Assessment Noted Time PHQ-9 Depression Total Score: 0 09/29/20 24 9:48 AM EST documented as of this encounter Care Teams Metal Bonder Relationship Specialty Start Date End Date Sancho Yoon MD [address] [place] [address] PCP - General Internal Medicine 08/16/14 Tae Kong MD [address] [place] [address] Cardiology 07/18/25 documented as of this encounter
--- OUTSIDE RECORDS SUMMARY | 2025-10-26 22:25 | XMS_ITS | Encounter Summary ---
Author Organization [employer] Address [address] [facility] 7t [place] [address] Care Team Providers Care Tree Doctor Name Role Phone Sancho Yoon MD Primary Care Provide r Tae Kong MD Unavailable [phone] Reason for Visit * Reason Comments Med Refill Encounter Details Date Type Department Care Team ([facility] st Contact Info) Description 02/22/2025 Refill [facility] CH[facility] MED & PEDS [address] [place], [place] [phone] Sancho Yoon MD [address] [place] [address] Other chronic pain Social History Tobacco Use [...] Description 11/28/2025 9:45 AM EST Office Visit [facility] MEDICINE [address] [place] [address] 03/19/2026 8:00 AM EDT Office Visit [facility] ADULT DENTAL [address] [place] [address] Yi Sanchez documented as of this encounter Visit Diagnoses Diagnosis Other chronic pain documented in this encounter Additional Health Concerns Assessment Noted Time PHQ-9 Depression Total Score: 0 09/29/20 24 9:48 AM EST documented as of this encounter Care Teams Tree Doctor Relationship Specialty Start Date End Date Sancho Yoon MD [address] [place] [address] PCP - General Internal Medicine 08/16/14 Tae Kong MD [address] [place] [address] Cardiology 07/18/25 documented as of this encounter
--- OUTSIDE RECORDS SUMMARY | 2025-10-26 22:25 | XMS_ITS | Encounter Summary ---
Author Organization [employer] Address [address] [facility] 7t [place] [address] Care Team Providers Care Switching Clerk Name Role Phone Sancho Yoon MD Primary Care Provide r Tae Kong MD Unavailable [phone] Reason for Visit * Reason Onset Date Comments Med Refill 05/01/2025 Encounter Details Date Type Department Care Team ([facility] st Contact Info) Description 05/01/2025 Telephone [facility] MEDICINE [address] [place] [address] Sancho Yoon MD [address] [place] [address] Med Refill Social History Tobacco Use Types [...] immediate release tablet To be sent to: [facility] - [place], [place] - [address] [place] [address] documented in this encounter Plan of Treatment Upcoming Encounters Date Type Department Care Team (Late st Contact Info) Description 11/28/2025 9:45 AM EST Office Visit [facility] MEDICINE [address] [place] [address] 03/19/2026 8:00 AM EDT Office Visit [facility] ADULT DENTAL [address] [place] [address] Yi Sanchez documented as of this encounter Visit Diagnoses Not on filedocumented in this encounter Additional Health Concerns Assessment Noted Time PHQ-9 Depression Total Score: 0 09/29/20 24 9:48 AM EST documented as of this encounter Care Teams Switching Clerk Relationship Specialty Start Date End Date Sancho Yoon MD [address] [place] [address] PCP - General Internal Medicine 08/16/14 Tae Kong MD [address] [place] [address] Cardiology 07/18/25 documented as of this encounter
--- OUTSIDE RECORDS SUMMARY | 2025-10-26 22:26 | XMS_ITS | Encounter Summary ---
Author Organization [employer] Address [address] [facility] 7t [place] [address] Care Team Providers Care Wrap Checker Name Role Phone Sancho Yoon MD Primary Care Provide r Tae Kong MD Unavailable [phone] Reason for Visit * Reason Comments Med Refill Encounter Details Date Type Department Care Team ([facility] st Contact Info) Description 02/08/2024 Refill [facility] MEDICINE [address] [place] [address] Sancho Yoon MD [address] [place], [place] [phone] Other chronic pain Social History Tobacco Use [...] Visit [facility] MEDICINE [address] [place] [address] 03/19/2026 8:00 AM EDT Office Visit [facility] ADULT DENTAL [address] [place] [address] Yi Sanchez documented as of this encounter Visit Diagnoses Diagnosis Other chronic pain documented in this encounter Additional Health Concerns Assessment Noted Time PHQ-9 Depression Total Score: 3 03/23/20 23 1:07 PM EDT documented as of this encounter Care Teams Wrap Checker Relationship Specialty Start Date End Date Sancho Yoon MD [address] [place] [address] PCP - General Internal Medicine 08/16/14 Tae Kong MD [address] [place] [address] Cardiology 07/18/25 documented as of this encounter
--- OUTSIDE RECORDS SUMMARY | 2025-10-26 22:26 | XMS_ITS | Encounter Summary ---
Author Organization [employer] Address [address] [facility] 7t [place] [address] Care Team Providers Care Campground Manager Name Role Phone Sancho Yoon MD Primary Care Provide r Tae Kong MD Unavailable [phone] Reason for Visit * Reason Comments Med Refill Encounter Details Date Type Department Care Team ([facility] st Contact Info) Description 10/17/2024 Refill [facility] CHC MED & PEDS [address] [place], [place] [phone] Sancho Yoon MD [address] [place] [address] Other chronic pain Social History Tobacco Use [...] Description 11/28/2025 9:45 AM EST Office Visit [facility] MEDICINE [address] [place] [address] 03/19/2026 8:00 AM EDT Office Visit [facility] ADULT DENTAL [address] [place] [address] Yi Sanchez documented as of this encounter Visit Diagnoses Diagnosis Other chronic pain documented in this encounter Additional Health Concerns Assessment Noted Time PHQ-9 Depression Total Score: 0 09/29/20 9:48 AM EST documented as of this encounter Care Teams Campground Manager Relationship Specialty Start Date End Date Sancho Yoon MD [address] [place] [address] PCP - General Internal Medicine 08/16/14 Tae Kong MD [address] [place] [address] Cardiology 07/18/25 documented as of this encounter
--- OUTSIDE RECORDS SUMMARY | 2025-10-26 22:26 | XMS_ITS | Encounter Summary ---
Author Organization [employer] Address [address] [facility] 7t [place] [address] Care Team Providers Care Lead Warehouse Associate Name Role Phone Sancho Yoon MD Primary Care Provide r Tae Kong MD Unavailable [phone] Reason for Visit * Reason Onset Date Comments Med Refill 07/25/2024 Encounter Details Date Type Department Care Team ([facility] st Contact Info) Description 07/25/2024 Telephone [facility] MEDICINE [address] [place] [address] Sancho Yoon MD [address] [place] [address] Med Refill Social History Tobacco Use Types [...] immediate release tablet To be sent to: [facility] - [place], [place] - [address] [place] [address] documented in this encounter Plan of Treatment Upcoming Encounters Date Type Department Care Team (Late st Contact Info) Description 11/28/2025 9:45 AM EST Office Visit [facility] MEDICINE [address] [place] [address] 03/19/2026 8:00 AM EDT Office Visit [facility] ADULT DENTAL [address] [place] [address] Yi Sanchez documented as of this encounter Visit Diagnoses Not on filedocumented in this encounter Additional Health Concerns Assessment Noted Time PHQ-9 Depression Total Score: 3 03/23/20 23 1:07 PM EDT documented as of this encounter Care Teams Lead Warehouse Associate Relationship Specialty Start Date End Date Sancho Yoon MD [address] [place] [address] PCP - General Internal Medicine 08/16/14 Tae Kong MD [address] [place] [address] Cardiology 07/18/25 documented as of this encounter
--- OUTSIDE RECORDS SUMMARY | 2025-10-26 22:26 | XMS_ITS | Clinical Summary ---
Author Organization [employer] Address [address] [facility] 7t [place] [address] Care Team Providers Care Financial Systems Manager Name Role Phone Sancho Yoon MD Primary Care Provide r Tae Kong MD Unavailable [phone] Allergies No known active allergies Medications * [...] daily. 60 tablet 2 025 06/08 Active naloxone (Narcan) 4 mg/0.1 mL nasal spray Administer 1 spray (4 mg) into affected nostril(s) if needed for opioid reversal. 2 each 1 025 Active lisinopril 10 MG tabletIndications:Esse ntial hypertension TAKE 1 TABLET BY MOUTH EVERY MORNING 90 tablet 1 Active rosuvastatin (Crestor) 5 MG tabletIndications:Pure hypercholesterolemia TAKE 1 TABLET BY MOUTH AT BEDTIME 90 tablet 10/10/20 25 12:37 PM EST Active amLODIPine (Norvasc) 5 MG tabletIndications:Esse ntial hypertension Take 1 tablet (5 mg) by mouth Once per day. 30 tablet 3 10/26/20 25 4:40 PM EST Active oxyCODONE (Roxicodone) 5 MG immediate release tabletIndications:Bootmaker Hand linnea right-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 84 tablet 025 11/23 Active rosuvastatin (Crestor) 5 MG tabletIndications:Pure hypercholesterolemia TAKE 1 TABLET BY MOUTH AT BEDTIME 90 tablet 025 09/28 Discontinued amLODIPine (Norvasc) 5 MG tablet Take 1 tablet (5 mg) by mouth Once per day. 30 tablet 2 025 10/26 Discontinued( Reorder (will not trigger notification to Pharmacy)) oxyCODONE (Roxicodone) 5 MG immediate release tabletIndications:Bootmaker Hand linnea right-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 Do not start before September 05, 2025. 84 tablet 025 10/02 Discontinued( Reorder (will not trigger notification to Pharmacy)) oxyCODONE (Roxicodone) 5 MG immediate release tabletIndications:Bootmaker Hand linnea right-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 84 tablet 10/04/20 25 10:16 AM EST 025 10/26 Discontinued( Reorder (will not trigger notification to Pharmacy)) Active Problems Problem Noted Date Diagnosed Date Hypernatremia 10/26/2025 Assessment & Plan (10/26/2025 2:20 PM EST): Pt recently seen in the ER at [facility] with hypertension and hypernatremia Stabilized after treatment. Thought to be due to dehydration Plan: Repeat BMP Right leg DVT (CMS/HCC) 06/08/2025 Acute pulmonary [...] does have already f up apt w health information internship Dr Beck in 4 days on 06/12/2025-encouraged pt to go to apt to complete eval for hypercoagulable state if not done before ,seems per ED note pt may have not been fully compliant w warfarin however mentions that INR was therapeutic at 2.2 -order today TTE to eval cardiac strain and if relevant abnormalities will rec pt to see log cooker sooner ,states last seen 03/2025 -in regards [...] sided low back pain w/ sciatica Last PRINCIPAL BIOINFORMATICS SPECIALIST Agreement: 05/23/25 Tier 3 (PRINCIPAL BIOINFORMATICS SPECIALIST Q4-6months), reviewed by PCP Dec 2024 Assessment [...] if needed can be considered test . [facility] care 03/23/2023 Assessment & Plan (10/26/2025 2:27 PM EST): PSA 08/02/2025 : 1.70 Normal. Colonoscopy: 02/17/2022 Dr. 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 Pt is now on Eliquis given previous PE. 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 Pt is now on Eliquis given recent PE. Undergoing hypercoagulable work up per Hematology Assessment & Plan (03/23/2023 1:51 PM EDT): Pt w hx of DVT and PE years ago s/P IVC filter and on warfarin -f at [place] [facility] -from records last INR 03/14/2023 [...] management Essential hypertension 12/17/2015 Assessment & Plan (10/26/2025 2:18 PM EST): Pt here for a routine [...] counseled about weight loss. 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 Evaluated extensively by agricultural systems specialist Dr. Beck who did a hypercoagulable work up that was unrevealing, although she believes pt has a hypercoagulable state and needs to be on anticoagulation life long. 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 He has been on coumadin since 2000. He was evaluated extensively by agricultural systems specialist Dr. Beck who did a hypercoagulable [...] since 2000. He was evaluated extensively by agricultural systems specialist Dr. Beck who did a hypercoagulable [...] since 2000. He was evaluated extensively by agricultural systems specialist Dr. Beck who did a hypercoagulable [...] since 2000. He was evaluated extensively by agricultural systems specialist Dr. Beck who did a hypercoagulable work up that was unrevealing, although she believes pt has a hypercoagulable state and needs to be on coumadin life long. Pt continues to follow at the coumadin clinic Last INR was therapeutic. 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 On coumadin since 2000. Evaluated extensively by agricultural systems specialist Dr. Beck who did a hypercoagulable [...] -UTOX as expected. Pill count discrepancy. See consumer services advisor. Assessment & Plan (03/30/2025 12:09 PM EDT): [...] contract with us. Pt was referred to [facility] Pain management s/p epidural injection. With excellent [...] contract with us. Pt was referred to [facility] Pain management s/p epidural injection. With excellent [...] with partial results. [facility] and conservative treatment modalities. 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 pt now has a Narcotic contract with us. Pt was referred to [facility] Pain management and is already scheduled for [...] 08/25/2012 Pure hypercholesterolemia 03/09/2012 Assessment & Plan (10/26/2025 2:19 PM EST): Patient is here for a f/u [...] goal for weight loss. Assessment & Plan (08/01/2025 1:40 PM EDT): [...] for a HDF He was admitted to [facility] from 07/15-07/17 for YUKI, orthostatic syncope and [...] no longer feels dizzy Fracture, maxillary ([facility]) 07/21/2023 01/26/2025 Assessment & Plan (07/30/2023 4:02 PM EDT): Ct done at [facility] 07/15/2023 showed: fracture of anterior wall of left maxillary sinus and left side of nasal bone with minimal displacement Pt was referred to the maxillofacial surgeon. I contacted them today they told me they had misfiled his referral, the community health representative of the office told me the [...] Encounters Date Type Department Care Team Description 10/26/2025 2:15 PM EST Office Visit [address] [address] Sancho Yoon MD Essential hypertension (Primary Dx); Pure hypercholesterolemia; Hypernatremia; Chronic anticoagulation; Presence of inferior vena cava filter; Chronic right-sided low back pain with right-sided sciatica; Preventative health care; Encounter for immunization 10/26/2025 Travel 10/20/[address] [address] Sancho Yoon MD CHART PREP 10/06/2025 8:00 AM EST Office Visit [facility] ADULT DENTAL [address] [place] [phone] Raimundo Lemus DMD 10/02/2025 Refill [facility] [address] [place], [place] [phone] 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 RN Chronic right-sided low back pain with right-sided sciatica 10/02/[address] [address] Sancho Yoon MD Med Refill 09/28/2025 Refill [facility] [address] [place] [phone] Kim Wise ANP Pure hypercholesterolemia 09/26/2025 9:45 AM EST Office Visit [address] [address] Janis Cm, NESTOR Chronic right-sided low back pain with right-sided sciatica (Primary Dx); Long-term current use of opiate analgesic 09/26/2025 Travel 09/18/2025 8:00 AM EST Office Visit [facility] [address] [place] [address] Yi Sanchez Dental calculus (Primary Dx); Encounter for dental examination; Dental plaque; Teeth missing 09/18/[address] [address] Sancho Yoon MD Referral 09/15/2025 Patient Outreach [address] [address] Sancho Yoon MD Transition Of Care (Tcm) (HDF unscheduled LVM ) 09/06/2025 Refill [facility] [address] [facility] [place] [address] Sancho Yoon MD Essential hypertension 09/04/2025 Refill [facility] [address] [place] [address] 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 RN Chronic right-sided low back pain with right-sided sciatica 09/04/2025 Telephone [facility] [address] [facility] [place] [address] Sancho Yoon MD Med Refill 08/23/2025 Refill [facility] [address] [facility] [place] [address] Sancho Yoon MD 08/18/2025 11:20 AM EDT Office Visit [facility] [address] [place] [address] Otilio Del Toro MD Cough in adult patient 08/18/2025 Travel 08/08/2025 Refill [facility] [address] [place] [address] Miesha Schwartz, DO Chronic right-sided low back pain with right-sided sciatica 08/07/2025 Refill [facility] [address] [place] [address] Miesha Schwartz, DO Chronic right-sided low back pain with right-sided sciatica 08/04/2025 Telephone [facility] [address] [facility] [place] [address] Sancho Yoon MD Med Refill 08/02/2025 Orders Only [facility] [address] [facility] [place] [address] Sancho Yoon MD 08/01/2025 1:15 PM EDT Office Visit [facility] [place] [address] Sancho Yoon MD Essential hypertension (Primary Dx); Other acute pulmonary embolism, unspecified whether acute cor pulmonale present (CMS/HCC); Preventative health care; Chronic anticoagulation; Pure hypercholesterolemia 08/01/2025 Travel 07/31/2025 Telephone [facility] [address] [place] [address] Sancho Yoon MD chart prep from Last 3 Months Immunizations Immunization Administration [...] 12+ 03/04/2022, 10/02/2021,02/13/2021,01/16 Pfizer Covid-19 Vaccine 12+ 10/26/2025,,09/10/2023 Pfizer Covid-19 Vaccine 12+ Bivalent 08/22/2022 Pneumococcal [...] Mass Index 29.24 10/26/2025 2:02 PM EST Plan of Treatment Upcoming Encounters Date Type Department Care Team (Late st Contact Info) Description 11/28/2025 9:45 AM EST Office Visit [facility] [address] [place] [address] 03/19/2026 8:00 AM EDT Office Visit [facility] ADULT DENTAL [address] [place] [address] Yi Sanchez Health Maintenance Due Date Last Done Comments CT Colonography 1954 FIT DNA/Cologuard 1955 FIT 1955 FOBT 1955 Sigmoidoscopy 1955 Hepatitis A Vaccines (2 of 2 - Risk 2-dose series) 12/04/2002 06/03/2002 Hepatitis B Vaccines (3 of 3 - Risk 3-dose series) 01/22/2010 09/26/2009, 07/25/2009 Dental Oral Exam 03/19/2026 09/18/2025, , 09/07/2024, Additional history exists Dental Prophylaxis 03/19/2026 09/18/2025, 0 03/15/2025, 09/07/2024, Additional history exists COVID-19 Vaccine ( season) 2026 10/26/2025, 09/29/2024, 09/10/2023, Additional history exists Dental X-Ray: Full Mouth 07/23/2026 07/22/2023, 10/16 SDOH Screening 07/24/2026 07/24/2025 Dental X-Ray: Bitewings 09/19/2026 09/18/20, 09/07/2024, 07/22/2023, Additional history exists Alcohol/Substance Use Screening 10/26/2026 10/26/2025 Depression Screening 10/26/2026 10/26/2025, 10/26/20 Tobacco Screening 10/26/2026 10/26/2025 Colonoscopy 02/17/2027 02/17/2022 Colorectal Cancer Screening 02/17/2027 [...] Procedure Name Priority Date/Time Associated Diagnosis Comments BASIC METABOLIC PANEL Routine 10/26/2025 2:56 PM EST Palpitations Essential hypertension CASE PRESENTATION, DETAILED AND EXTENSIVE TREATMENT PLANNING Routine 10/06/2025 8:00 AM EST 20 B(V) RESIN-BASED COMPOSITE - 1 SURF, POSTERIOR Routine 10/06/2025 8:00 AM EST 21 B(V) RESIN-BASED COMPOSITE - 1 SURF, POSTERIOR Routine 10/06/2025 8:00 AM EST 29 B(V) RESIN-BASED COMPOSITE - 1 SURF, POSTERIOR Routine 10/06/2025 8:00 AM EST 3 B(V) RESIN-BASED COMPOSITE - 1 SURF, POSTERIOR Routine 10/06/2025 8:00 AM EST POCT DU-14 URINE DRUG SCREEN Routine 09/26/2025 [...] Relevant to Health Maintenance Results * (ABNORMAL) Basic Metabolic Panel (10/26/2025 2:56 PM EST) Pathologist [facility] Sodium 140 135 - 145 mmol/L [facility] Potassium 4.1 3.3 - 5.1 mmol/L [facility] Chloride 107 96 - 108 mmol/L [facility] Carbon Dioxide 27 22 - 29 mmol/L [facility] Anion Gap 10(L) 12 - 20 [facility] Urea Nitrogen (BUN) 15 9 - 16 mg/dL [facility] Creatinine, Serum 1.04 0.5 - 1.4 mg/dL [facility] Estimated Glomerular Filt Rate >60 [facility] Comment:Chronic Kidney Disea se: Estimated GFR < 60 mL/min/[id number] Kidney Disease: Estimated GFR < 15 mL/min/1.73m2 Glucose 106 60 - 115 mg/dL [facility] Calcium 9.0 8.4 - 10.2 mg/dL [facility] Blood Venous blood specimen / Unknown 10/26/2025 2:56 PM EST 10/26/2025 5:58 PM EST us Chad Foley MD LAB BLOOD ORDERABLES Final Resul t [facility] [address] [place] [phone] * (ABNORMAL) POCT DU-14 Urine Drug Screen (09/26/2025 10:16 AM EST) Pathologist [facility] THC Negative Negative Cocaine Screen, Urine Negative Negative Opiate Screen, Urine Negative Negative Methamphetamine Screen Urine Negative Negative Amphetamine Screen, Urine Negative Negative Benzodiazepines Screen, Urine Negative Negative Barbiturate Screen, Urine Negative Negative Methadone Screen, Urine Negative Negative Buprenophine Screen, Urine Negative Negative TCA, Urine Negative Negative MDMA Urine Negative Negative ng/mL Oxycodone Screen, Urine Positive(A) Negative Comment:PRINCIPAL BIOINFORMATICS SPECIALIST pt on Oxycodone Phencyclidine (PCP), Urine Negative Negative Propoxyphene, Urine Negative Negative Fentanyl, Urine Negative Negative Urine Urine specimen obtained by clean catch procedure / Unknown 09/26/2025 10:16 AM EST Mirian Owens RN - 09/26/2025 10:16 AM EST UTOX cup Lot#[id number] Exp. 10/16/26 Internal Pass Control Janis Toi MACHINE SETTER SUPERVISOR POINT OF CARE TEST ENTER/EDIT ORDERABLES Final Result * Influenza B (ID NOW Rapid Molecular) (08/18/2025 11:32 AM EDT) [facility] Influenza B Negative Negative, Indeterminate [facility] Swab 08/18/2025 11:3 2 AM EDT Otilio Del Toro MD POINT OF CARE TEST ENTER/EDIT OR DERABLES Final Result Performing Organization Address [facility] Co de Phone Number [facility] [address] [place] [phone] * Influenza A (ID NOW Rapid Molecular) (08/18/2025 11:32 AM EDT) [facility] Influenza A Negative Negative, Indeterminate [facility] Swab 08/18/2025 11:3 2 AM EDT Otilio Del Toro MD POINT OF CARE TEST ENTER/EDIT OR DERABLES Final Result Performing Organization Address [facility] Co de Phone Number [facility] [address] [place] [phone] * POCT Rapid COVID Ag (08/18/2025 11:22 AM EDT) [facility] Rapid COVID Ag Negative Swab 08/18/2025 11:2 2 AM EDT Otilio Del Toro MD POINT OF CARE TEST ENTER/EDIT OR DERABLES Final Result * PSA, Screen (08/02/2025 8:56 AM EDT) [facility] PSA, Total 2.01 <0.05 - 4.0 ng/mL [facility] Comment:PSA methodology: Magno Lackey i ChemiluminescentMicroparticle Immunoassay (CMIA) Blood Venous blood specimen / Unknown 08/02/2025 8:56 AM EDT 08/02/2025 8:56 AM EDT us Sancho Mayberry MD LAB BLOOD ORDERABLES Final Result [facility] [address] [place] [phone] * (ABNORMAL) CBC auto differential (08/02/2025 8:56 AM EDT) [facility] White Blood Count 4.9 4.8 - 10.8 [...] Final Result [facility] [address] [place] [phone] * Uric acid (08/02/2025 8:56 AM EDT) Uric Acid 4.9 3.4 - 7.0 mg/dL [facility] 08/02/2025 8:56 AM EDT 08/02/2025 8:56 AM EDT Sancho Mayberry MD LAB BLOOD ORDERABLES Final Result Performing Organization Address [facility]/ZIP Co de Phone Number [facility] [address] [place] [phone] [phone] * (ABNORMAL) Lipid Panel, Standard (08/02/2025 8:56 AM EDT) Triglycerides 224(H) <150 mg/dL [facility] Comment:Desirable Triglyceri [...] Final Result [facility] [address] [place] [address] [phone] * Colonoscopy (02/17/2022) Colonoscopy performed Historical Provider HEALTH MAINTENANCE Edited Result - Final from Last 3 Months or Most Recently Relevant to Health Maintenance Insurance [facility] OPTIONS (HMO D-SNP) [facility] ST[facility] Care Teams Financial Systems Manager Relationship Specialty Start Date End Date Sancho Yoon MD [address] [place] [address] PCP - General Internal Medicine 08/16/14 Tae Kong MD [address] [place] [address] Cardiology 07/18/25
--- OUTSIDE RECORDS SUMMARY | 2025-10-26 22:26 | XMS_ITS | Encounter Summary ---
Author Organization [employer] Address [address] [facility] 7t [place] [address] Care Team Providers Care El Teacher Name Role Phone Sancho Yoon MD Primary Care Provide r Tae Kong MD Unavailable [phone] Reason for Visit * Reason Comments Med Refill Encounter Details Date Type Department Care Team ([facility] st Contact Info) Description 07/02/2024 Refill [facility] MED[facility] [address] [place] [address] Sancho Yoon MD [address] [place], [place] [phone] Mild intermittent asthma without complication Social History [...] Description 11/28/2025 9:45 AM EST Office Visit [facility] MEDICINE [address] [place] [address] 03/19/2026 8:00 AM EDT Office Visit [facility] ADULT DENTAL [address] [place] [address] Yi Sanchez documented as of this encounter Visit Diagnoses Diagnosis Mild intermittent asthma without complication documented in this encounter Additional Health Concerns Assessment Noted Time PHQ-9 Depression Total Score: 3 03/23/20 23 1:07 PM EDT documented as of this encounter Care Teams El Teacher Relationship Specialty Start Date End Date Sancho Yoon MD [address] [place] [address] PCP - General Internal Medicine 08/16/14 Tae Kong MD [address] [place] [address] Cardiology 07/18/25 documented as of this encounter
--- OUTSIDE RECORDS SUMMARY | 2025-10-26 22:26 | XMS_ITS | Encounter Summary ---
Author Organization [employer] Address [address] [facility] 7t [place] [address] Care Team Providers Care Steward/Stewardess Name Role Phone Sancho Yoon MD Primary Care Provide r Tae Kong MD Unavailable [phone] Reason for Visit * Reason Onset Date Comments Med Refill 04/19/2024 Encounter Details Date Type Department Care Team ([facility] st Contact Info) Description 04/19/2024 Telephone [facility] MED[facility] [address] [place] [address] Sancho Yoon MD [address] [place] [address] Med Refill Social History Tobacco Use Types [...] immediate release tablet To be sent to: [facility] Pharmacy documented in this encounter Plan of Treatment Upcoming Encounters Date Type Department Care Team (Late st Contact Info) Description 11/28/2025 9:45 AM EST Office Visit [facility] [address] [place] [address] 03/19/2026 8:00 AM EDT Office Visit [facility] ADULT DENTAL [address] [place] [address] Yi Sanchez documented as of this encounter Visit Diagnoses Not on filedocumented in this encounter Additional Health Concerns Assessment Noted Time PHQ-9 Depression Total Score: 3 03/23/20 23 1:07 PM EDT documented as of this encounter Care Teams Steward/Stewardess Relationship Specialty Start Date End Date Sancho Yoon MD [address] [place] [address] PCP - General Internal Medicine 08/16/14 Tae Kong MD [address] [place] [address] Cardiology 07/18/25 documented as of this encounter
--- OUTSIDE RECORDS SUMMARY | 2025-10-26 22:26 | XMS_ITS | Encounter Summary ---
Author Organization [employer] Address [address] [facility] [address] [place] [address] Care Team Providers Care Traffic Lieutenant Name Role Phone Sancho Yoon MD Primary Care Provide r Tae Kong MD Unavailable [phone] Reason for Visit * Reason Comments Med Refill Encounter Details Date Type Department Care Team ([facility] Contact Info) Description 11/18/2023 Refill [facility] [address] [place], [place] [phone] Chad Foley MD [address] [place] [address] Social History Tobacco Use Types Packs/Day Years [...] Description 11/28/2025 9:45 AM EST Office Visit [facility] MED[facility] [address] [place] [address] 03/19/2026 8:00 AM EDT Office Visit [facility] ADULT DENTAL [address] [place] [address] Yi Sanchez documented as of this encounter Visit Diagnoses Not on filedocumented in this encounter Additional Health Concerns Assessment Noted Time PHQ-9 Depression Total Score: 3 03/23/20 23 1:07 PM EDT documented as of this encounter Care Teams Traffic Lieutenant Relationship Specialty Start Date End Date Sancho Yoon MD [address] [place] [phone] PCP - General Internal Medicine 08/16/14 Tae Kong MD [address] [place] [phone] Cardiology 07/18/25 documented as of this encounter
--- OUTSIDE RECORDS SUMMARY | 2025-10-26 22:26 | XMS_ITS | Encounter Summary ---
Author Organization [employer] Address 75 [facility] 7t [place] [address] Care Team Providers Care Supervisor Mill Name Role Phone Sancho Yoon MD Primary Care Provide r Tae Kong MD Unavailable [phone] Reason for Visit * Reason Comments Med Refill Encounter Details Date Type Department Care Team ([facility] st Contact Info) Description 05/02/2024 Refill [facility] MED & PEDS [address] [place], [place] [phone] Sancho Yoon MD [address] [place] [address] Other chronic pain Social History Tobacco Use [...] Description 11/28/2025 9:45 AM EST Office Visit [facility] MEDICINE [address] [place] [address] 03/19/2026 8:00 AM EDT Office Visit [facility] ADULT DENTAL [address] [place] [address] Yi Sanchez documented as of this encounter Visit Diagnoses Diagnosis Other chronic pain documented in this encounter Additional Health Concerns Assessment Noted Time PHQ-9 Depression Total Score: 3 03/23/20 23 1:07 PM EDT documented as of this encounter Care Teams Supervisor Mill Relationship Specialty Start Date End Date Sancho Yoon MD [address] [place] [address] PCP - General Internal Medicine 08/16/14 Tae Kong MD [address] [place] [address] Cardiology 07/18/25 documented as of this encounter
--- OUTSIDE RECORDS SUMMARY | 2025-10-26 22:26 | XMS_ITS | Encounter Summary ---
Author Organization [employer] Address 75 [facility] [address] [place] [address] Care Team Providers Care Curtain Inspector Name Role Phone Sancho Yoon MD Primary Care Provide r Tae Kong MD Unavailable [phone] Reason for Visit * Reason Comments Med Refill Encounter Details Date Type Department Care Team ([facility] Contact Info) Description 04/18/2025 Refill [facility] [address] [place] [address] Miesha Schwartz DO [address] [place] [address] Social History Tobacco Use Types Packs/Day Years [...] Description 11/28/2025 9:45 AM EST Office Visit [facility] [address] [place] [address] 03/19/2026 8:00 AM EDT Office Visit [facility] ADULT DENTAL [address] [place] [address] Yi Sanchez documented as of this encounter Visit Diagnoses Not on filedocumented in this encounter Additional Health Concerns Assessment Noted Time PHQ-9 Depression Total Score: 0 09/29/20 24 9:48 AM EST documented as of this encounter Care Teams Curtain Inspector Relationship Specialty Start Date End Date Sancho Yoon MD [address] [place] [address] PCP - General Internal Medicine 08/16/14 Tae Kong MD [address] [place] [address] Cardiology 07/18/25 documented as of this encounter
--- OUTSIDE RECORDS SUMMARY | 2025-10-26 22:26 | XMS_ITS | Encounter Summary ---
Author Organization [employer] Address 75 [facility] 7t [place] [address] Care Team Providers Care Adaptive Physical Education Specialist Name Role Phone Sancho Yoon MD Primary Care Provide r Tae Kong MD Unavailable [phone] Reason for Visit * Reason Comments Med Refill Encounter Details Date Type Department Care Team ([facility] st Contact Info) Description 11/04/2024 Refill [facility] MEDICINE [address] [place] [address] Sancho Yoon MD [address] [place] [address] Erectile dysfunction, unspecified erectile dysfunction type Social [...] Description 11/28/2025 9:45 AM EST Office Visit [facility] MEDICINE [address] [place] [address] 03/19/2026 8:00 AM EDT Office Visit [facility] ADULT DENTAL [address] [place] [address] Yi Sanchez documented as of this encounter Visit Diagnoses Diagnosis Erectile dysfunction, unspecified erectile dysfunction type documented in this encounter Additional Health Concerns Assessment Noted Time PHQ-9 Depression Total Score: 0 09/29/20 24 9:48 AM EST documented as of this encounter Care Teams Adaptive Physical Education Specialist Relationship Specialty Start Date End Date Sancho Yoon MD [address] [place] [address] PCP - General Internal Medicine 08/16/14 Tae Kong MD [address] [place] [address] Cardiology 07/18/25 documented as of this encounter
--- OUTSIDE RECORDS SUMMARY | 2025-10-26 22:26 | XMS_ITS | Encounter Summary ---
Author Organization [employer] Address [address] [facility] [address] [place] [address] Care Team Providers Care Squad Sergeant Name Role Phone Sancho Yoon MD Primary Care Provide r Tae Kong MD Unavailable [phone] Encounter Details Date Type Department Care Team ([facility] st Contact Info) Description 11/14/2024 Telephone [facility] [address] [place], [place] [phone] Sancho Yoon MD [address] [place] [address] Social History Tobacco Use Types Packs/Day Years [...] Visit [facility] MEDICINE 230 [place] [address] 03/19/2026 8:00 AM EDT Office Visit [facility] ADULT DENTAL [address] [place] [address] Yi Sanchez documented as of this encounter Visit Diagnoses Not on filedocumented in this encounter Additional Health Concerns Assessment Noted Time PHQ-9 Depression Total Score: 0 09/29/20 24 9:48 AM EST documented as of this encounter Care Teams Squad Sergeant Relationship Specialty Start Date End Date Sancho Yoon MD [address] [place] [address] PCP - General Internal Medicine 08/16/14 Tae Kong MD [address] [place] [address] Cardiology 07/18/25 documented as of this encounter
--- OUTSIDE RECORDS SUMMARY | 2025-10-26 22:26 | XMS_ITS | Encounter Summary ---
Author Organization [employer] Address 75 [facility] 7t [place] [address] Care Team Providers Care Signals Intelligence Analyst Name Role Phone Sancho Yoon MD Primary Care Provide r Tae Kong MD Unavailable [phone] Encounter Details Date Type Department Care Team (Late Contact Info) Description 07/28/2023 Abstract [facility] ADULT DENTAL [address] [place] [address] Mildred Duran [address] [place] [address] Social History Tobacco Use Types Packs/Day Years [...] Department Care Team (Late Contact Info) Description 11/28/2025 9:45 AM EST Office Visit [facility] MEDICINE [address] [place] [address] 03/19/2026 8:00 AM EDT Office Visit [facility] ADULT DENTAL [address] [place] [address] Sanchez, Yi documented as of this encounter Visit Diagnoses Not on filedocumented in this encounter Additional Health Concerns Assessment Noted Time PHQ-9 Depression Total Score: 3 03/23/20 23 1:07 PM EDT documented as of this encounter Care Teams Signals Intelligence Analyst Relationship Specialty Start Date End Date Sancho Yoon MD [address] [place] [address] PCP - General Internal Medicine 08/16/14 Tae Kong MD [address] [place] [address] Cardiology 07/18/25 documented as of this encounter
--- OUTSIDE RECORDS SUMMARY | 2025-10-26 22:26 | XMS_ITS | Encounter Summary ---
Author Organization [employer] Address [address] [facility] [address] [place] [address] Care Team Providers Care Assistant Passenger Locomotive Engineer Name Role Phone Sancho Yoon MD Primary Care Provide r Tae Kong MD Unavailable [phone] Reason for Visit * Reason Comments Med Refill Encounter Details Date Type Department Care Team ([facility] st Contact Info) Description 01/24/2024 Refill [facility] [address] [place] [address] Sancho Yoon MD [address] [place], [place] [phone] Social History Tobacco Use Types Packs/Day Years [...] Description 11/28/2025 9:45 AM EST Office Visit [facility] [address] [place] [address] 03/19/2026 8:00 AM EDT Office Visit [facility] [address] [place] [address] Yi Sanchez documented as of this encounter Visit Diagnoses Not on filedocumented in this encounter Additional Health Concerns Assessment Noted Time PHQ-9 Depression Total Score: 3 03/23/20 23 1:07 PM EDT documented as of this encounter Care Teams Assistant Passenger Locomotive Engineer Relationship Specialty Start Date End Date Sancho Yoon MD [address] [place] [address] PCP - General Internal Medicine 08/16/14 Tae Kong MD [address] [place] [address] Cardiology 07/18/25 documented as of this encounter
--- OUTSIDE RECORDS SUMMARY | 2025-10-26 22:26 | XMS_ITS | Encounter Summary ---
Author Organization [employer] Address 75 [facility] 7t [place] [address] Care Team Providers Care Automatic Seamer Name Role Phone Sancho Yoon MD Primary Care Provide r Tae Kong MD Unavailable [phone] Reason for Visit * Reason Onset Date Comments Appointment Request 04/05/2024 Encounter Details Date Type Department Care Team ([facility] st Contact Info) Description 04/05/2024 Telephone [facility] MEDICINE [address] [place] [address] Sancho Yoon MD [address] [place] [address] Appointment Request Social History Tobacco Use Types [...] to know if there is any upcoming [facility] visits to be scheduled. Please contact pt at [phone]. documented in this encounter Plan of Treatment Upcoming Encounters Date Type Department Care Team (Late st Contact Info) Description 11/28/2025 9:45 AM EST Office Visit [facility] MEDICINE [address] [place] [address] 03/19/2026 8:00 AM EDT Office Visit [facility] ADULT DENTAL [address] [place] [address] Yi Sanchez documented as of this encounter Visit Diagnoses Not on filedocumented in this encounter Additional Health Concerns Assessment Noted Time PHQ-9 Depression Total Score: 3 03/23/20 23 1:07 PM EDT documented as of this encounter Care Teams Automatic Seamer Relationship Specialty Start Date End Date Sancho Yoon MD [address] [place] [address] PCP - General Internal Medicine 08/16/14 Tae Kong MD [address] [place] [address] Cardiology 07/18/25 documented as of this encounter
--- OUTSIDE RECORDS SUMMARY | 2025-10-26 22:26 | XMS_ITS | Encounter Summary ---
Author Organization [employer] Address 75 [facility] 7t [place] [address] Care Team Providers Care Vanstone Machine Operator Name Role Phone Sancho Yoon MD Primary Care Provide r Tae Kong MD Unavailable [phone] Reason for Visit * Reason Comments Med Refill Encounter Details Date Type Department Care Team ([facility] st Contact Info) Description 08/19/2023 Refill [facility] MEDICINE [address] [place] [address] Sancho Yoon MD [address] [place] [address] Social History Tobacco Use Types Packs/Day Years [...] Description 11/28/2025 9:45 AM EST Office Visit [facility] MEDICINE [address] [place] [address] 03/19/2026 8:00 AM EDT Office Visit [facility] ADULT DENTAL [address] [place] [address] Yi Sanchez documented as of this encounter Visit Diagnoses Not on filedocumented in this encounter Additional Health Concerns Assessment Noted Time PHQ-9 Depression Total Score: 3 03/23/20 23 1:07 PM EDT documented as of this encounter Care Teams Vanstone Machine Operator Relationship Specialty Start Date End Date Sancho Yoon MD [address] [place] [address] PCP - General Internal Medicine 08/16/14 Tae Kong MD [address] [place] [address] Cardiology 07/18/25 documented as of this encounter
--- OUTSIDE RECORDS SUMMARY | 2025-10-26 22:26 | XMS_ITS | Encounter Summary ---
Author Organization [employer] Address 75 [facility] 7t [place] [address] Care Team Providers Care Furnace Caretaker Name Role Phone Sancho Yoon MD Primary Care Provide r Tae Kong MD Unavailable [phone] Reason for Visit * Reason Onset Date Comments Med Refill 08/22/2024 Encounter Details Date Type Department Care Team ([facility] st Contact Info) Description 08/22/2024 Telephone [facility] MEDICINE [address] [place] [address] Sancho Yoon MD [address] [place] [address] Med Refill Social History Tobacco Use Types [...] sent to: [facility] - [place], [place] - [address] [place] [address] documented in this encounter Plan of Treatment Upcoming Encounters Date Type Department Care Team ([facility] st Contact Info) Description 11/28/2025 9:45 AM EST Office Visit [facility] MEDICINE [address] [place] [address] 03/19/2026 8:00 AM EDT Office Visit [facility] ADULT DENTAL [address] [place] [address] Yi Sanchez documented as of this encounter Visit Diagnoses Not on filedocumented in this encounter Additional Health Concerns Assessment Noted Time PHQ-9 Depression Total Score: 3 03/23/20 23 1:07 PM EDT documented as of this encounter Care Teams Furnace Caretaker Relationship Specialty Start Date End Date Sancho Yoon MD [address] [place] [address] PCP - General Internal Medicine 08/16/14 Tae Kong MD [address] [place] [address] Cardiology 07/18/25 documented as of this encounter
--- OUTSIDE RECORDS SUMMARY | 2025-10-26 22:26 | XMS_ITS | Encounter Summary ---
Author Organization [employer] Address 75 [facility] 7t [place] [address] Care Team Providers Care Calender Feeder Name Role Phone Sancho Yoon MD Primary Care Provide r Tae Kong MD Unavailable [phone] Reason for Visit * Reason Onset Date Comments Med Refill 06/27/2024 Encounter Details Date Type Department Care Team ([facility] st Contact Info) Description 06/27/2024 Telephone [facility] MEDICINE [address] [place] [address] Sancho Yoon MD [address] [place] [address] Med Refill Social History Tobacco Use Types [...] immediate release tablet To be sent to: [facility] - [place], [place] - [address] [place] [address] documented in this encounter Plan of Treatment Upcoming Encounters Date Type Department Care Team ([facility] st Contact Info) Description 11/28/2025 9:45 AM EST Office Visit [facility] MEDICINE [address] [place] [address] 03/19/2026 8:00 AM EDT Office Visit [facility] ADULT DENTAL [address] [place] [address] Yi Sanchez documented as of this encounter Visit Diagnoses Not on filedocumented in this encounter Additional Health Concerns Assessment Noted Time PHQ-9 Depression Total Score: 3 03/23/20 23 1:07 PM EDT documented as of this encounter Care Teams Calender Feeder Relationship Specialty Start Date End Date Sancho Yoon MD [address] [place] [address] PCP - General Internal Medicine 08/16/14 Tae Kong MD [address] [place] [address] Cardiology 07/18/25 documented as of this encounter
--- OUTSIDE RECORDS SUMMARY | 2025-10-26 22:26 | XMS_ITS | Encounter Summary ---
Author Organization [employer] Address 75 [facility] [address]t [place] [address] Care Team Providers Care Underground Truck Operator Name Role Phone Sancho Yoon MD Primary Care Provide r Tae Kong MD Unavailable [phone] Reason for Visit * Reason Onset Date Comments New Med Request 09/01/2023 Encounter Details Date Type Department Care Team ([facility] st Contact Info) Description 09/01/2023 Telephone [facility] MEDICINE [address] [place] [address] Sancho Yoon MD [address] [place] [address] New Med Request Social History Tobacco Use [...] 09/08/2023 8:54 AM EDT Received call from [facility] Coumadin clinic regarding [...] procedure on 09/08/2023. Any questions contact pt. Amharic speaker documented in this encounter Plan of Treatment Upcoming Encounters Date Type Department Care Team (Late st Contact Info) Description 11/28/2025 9:45 AM EST Office Visit [address] [address] 03/19/2026 8:00 AM EDT Office Visit [facility] ADULT DENTAL [address] [place] [address] Yi Sanchez documented as of this encounter Visit Diagnoses Not on filedocumented in this encounter Additional Health Concerns Assessment Noted Time PHQ-9 Depression Total Score: 3 03/23/20 23 1:07 PM EDT documented as of this encounter Care Teams Underground Truck Operator Relationship Specialty Start Date End Date Sancho Yoon MD [address] [place] [address] PCP - General Internal Medicine 08/16/14 Tae Kong MD [address] [place] [address] Cardiology 07/18/25 documented as of this encounter
== END 2025-10-26 14:51 ==
LOC: HO.HHCL 14:50
PROVIDERS: Emergency Medicine; PCP Internal Medicine; Referring Provider Nurse Practitioner Family; Visit Provider Internal Medicine
DX: R00.2 Palpitations (principal); I10 Essential (primary) hypertension; I26.99 Other pulmonary embolism without acute cor pulmonale; I82.401 Acute embolism and thrombosis of unspecified deep veins of right lower extremity; E87.0 Hyperosmolality and hypernatremia
CPT/HCPCS: 36415; 80048; 85301